=== PATIENT | male | born 1965 | race Hispanic/Latino ===

== ENCOUNTER 2022-05-17 11:09 | Inpatient (IN) | payer MEDICARE ==
[2022-05-17] MEDS ORDERED: ACETAMINOPHEN 325 MG TAB PO PRN (14:26)
[2022-05-17] MEDS ORDERED: METOCLOPRAMIDE 10 MG/2 ML INJ IV PRN (14:26)
--- NOTE | 2022-05-17 15:17 | Post Operative Note ---
Date of procedure: 05/17/22 Pre-op diagnosis: Respiratory failure Post-op diagnosis: same Findings: CONSENT: The procedure was performed emergently and the permission was implied because of the emergent nature. PROCEDURE SUMMARY: A time out was performed. My hands were washed immediately prior to the procedure. I wore a surgical cap, mask with protective eyewear, full gown and sterile gloves throughout the procedure. The patient was placed in Trendelenburg position. RIGHT chest region was prepped using chlorhexidine scrub and draped in sterile fashion using a full drape and sterile probe cover and sterile gel employed. The medial and lateral heads of the sternocleidomastoid muscle were identified as was the carotid pulse. The rt Internal Jugular vein was identified using the ultrasound. Anesthesia was achieved over the vein using 1% lidocaine. Using real-time out of plane guidance, the introducer needle was inserted into the Internal Jugular vein under direct ultrasound visualization. Venous blood was withdrawn. The syringe was removed and a guidewire was advanced into the introducer needle. The guidewire was visualized in the Internal Jugular Vein by ultrasound. A small incision was made at the skin surface with a scalpel and the introducer needle was exchanged for a dilator over the guidewire. After appropriate dilation was obtained, the dilator was exchanged over the wire for a 7F central venous catheter. The wire was removed and the catheter was sutured in place at 22 cm. A sterile sorbaview shield was placed over the catheter at the insertion site. The patient tolerated the procedure without any hemodynamic compromise. At time of procedure completion, all ports aspirated and flushed properly. Post-procedure chest x-ray is pending at this time. Estimated blood loss is <5cc. Procedure: Central line placement Surgeon: RAMONA ARROYO Estimated blood loss: minimal Pathology: none Condition: stable Disposition: ICU
[2022-05-17 15:53] LABS: ABG Base Excess -0.3 mmol/L (-2.0-3.0); ABG HCO3 24.1 mmol/L (20.0-26.0); ABG Methemoglobin 0.4 % (0.0-1.5); ABG Oxygen Saturation 99.2 % (95.0-99.0); ABG PCO2 38.4 mm Hg; ABG PH 7.416 pH Units (7.350-7.450); ABG PO2 191.6 mm Hg (80.0-90.0)
[2022-05-17 15:55] LABS: Albumin 2.9 g/dL (3.9-5); Blood Urea Nitrogen 42 mg/dL (9-20); Calcium 8.9 mg/dL (8.4-10.2); Hemolysis Index 4
--- NOTE | 2022-05-17 15:58 | XRay Report ---
CHEST 1 VIEW 05/17/2022 3:28 PM INDICATION / CLINICAL INFORMATION: central line placement. COMPARISON: Earlier the same day. FINDINGS: SUPPORT DEVICES: Endotracheal tube and right IJ central venous catheter in satisfactory position. HEART / MEDIASTINUM: Stable. LUNGS / PLEURA: Layering left-sided effusion with associated opacity and mild right basilar atelectas is remain. No pneumothorax. ADDITIONAL FINDINGS: No significant additional findings. IMPRESSION: 1. Lines and tubes in satisfactory position. 2. No significant change in the appearance of the chest. Signer Name: Reese Constantino MD Signed: 05/17/2022 3:54 PM Workstation Name: [id number]
[2022-05-17 16:05] LABS: Basophils % (Auto) 1.2 % (0.0-1.8); Eosinophils # (Auto) 0.1 K/mm3 (0.0-0.4); Eosinophils % (Auto) 2.3 % (0.0-4.3); Hematocrit 24.9 % (35.5-45.6); Hemoglobin 8.4 gm/dl (11.8-15.2); Lymphocytes # (Auto) 0.6 K/mm3 (1.2-5.4); Lymphocytes % (Auto) 15.3 % (13.4-35.0); Mean Corpuscular HGB Conc 34 % (32-34); Mean Corpuscular Volume 87 fl (84-94); Monocytes # (Auto) 0.6 K/mm3 (0.0-0.8); Monocytes % (Auto) 14.7 % (0.0-7.3); Platelet Count 150 K/mm3 (140-440); Red Blood Count 2.86 M/mm3 (3.65-5.03)
[2022-05-17 16:10] LABS: Alanine Aminotransferase < 5 units/L (7-56); BUN/Creatinine Ratio 6
[2022-05-17 16:10] LABS: Red Cell Distribution Width 20.9 % (13.2-15.2)
--- NOTE | 2022-05-17 16:39 | Consultation ---
History of Present Illness Consult date: 05/17/22 Reason for consult: dyspnea, COPD, hypoxemia History of present illness: This 56 year old Male transfered from [facility]. Patient developed severe respiratory distress at [facility]. Patient intubated and placed on mechanical ventilation. Patient transfered to [facility] ICU for further management and placement of central venous acess. Patient was on mechanical ventilation in the past. Patient was weaned from the ventilator and decanulated him. Patient agitated and developed severe respiratory distress, patient intubated and placed on assist control and volume control mechanical ventilation. Patient has history of HTN, Cardiomyopathy, ESRD on dialysis, COPD, History of Cocaine abuse Originally admitted to [facility] on 03/23/22 with altered mental status and CT of head obtained showed large Subdural hematoma with left shift.and also had hemoperitoneum.Patient undergone decompressive craniotomy.Patient also undergone paracentesis. Patient intubated and placed on mechanical ventilation subsequently has tracheostomy and PEG placement. Transfered to [facility] at that point. Patient weaned from the ventilator, subsequently decanulated. Patient tolerated decanulation well. Patient is on room air yesterday with 100% O2 saturation. Patient very anxious, May have seizure like activity, patients respiratory status detriorated, patient reintubated and placed on assist control mechanical ventilation. According to the chart, patient has history of smoking and Cocaine use. and has children. No known drug allergies. Patient sedated, not responding to verbal stimuli. Patient presently on assist control, volume control, rate 15, Tidal volume 450, FIO2 40%, PEEP 6 and O2 saturation running 100%. Recommend to decrease FIO2 to 30%. ABG on mechanical ventilation, AC/VC rate 15, Tidal volume 450, PEEP 6, FIO2 40% ABG pH 7.416 pH Units (7.350-7.450) 05/17/22 15:10 ABG pCO2 38.4 mm Hg 05/17/22 15:10 ABG pO2 191.6 mm Hg (80.0-90.0) H 05/17/22 15:10 ABG O2 Saturation 99.2 % (95.0-99.0) H 05/17/22 15:10 Recommend to decrease FIO2 to 30%. Patient afebrile. No leukocytosis. Blood pressure 101/68 , pulse 96 , Respirations 16. Chest xray done 05/17/22 reported Layering left-sided effusion with associated opacity and mild right basilar atelectasis remain. No pneumothorax. Lines and tubes in satisfactory position. Patient on sedatives dexametamidine, Fantanyl and versed. S/C Heparin and famotidine. Recommend Xopenex / atrovent aerosol treatments q 8 hours. Recommend nutritional evaluation. Past History Past Medical History: atrial fib, COPD, dialysis, ESRD, hypertension, renal failure, other (Subdural hematoma, S/P evacuation. Cardiomyopathy,) Past Surgical History: Other (Evacuation of subdural hematoma. History of tracheostomy and PEG placement.) Social history: smoking, other (History of Cocaine abuse.) Medications and Allergies Allergies Allergy/AdvReac Type Severity Reaction Status Date / Time No Known Allergies Allergy Unverified 05/17/22 15:36 Active Meds: Active Medications Acetaminophen (Acetaminophen 325 Mg Tab) 650 mg PO Q4H PRN PRN Reason: Pain MILD(1-3)/Fever >100.5/DYER Famotidine (Famotidine 20 Mg/2 Ml Inj) 20 mg IV BID [facility] Heparin Sodium (Porcine) (Heparin 5,000 Unit/1 Ml Vial) 5,000 unit SUB-Q Q12HR [facility] Dexmedetomidine HCl 400 mcg/ (Sodium Chloride) 104 mls @ 3.968 mls/hr IV TITRATE DAQUAN; Protocol Last Admin: 05/17/22 16:00 Dose: 0.2 mcg/kg/hr, 3.968 mls/hr Metoclopramide HCl (Metoclopramide 10 Mg/2 Ml Inj) 10 mg IV Q6H PRN PRN Reason: Nausea And Vomiting Morphine Sulfate (Morphine 2 Mg/1 Ml Inj) 2 mg IV Q4H PRN PRN Reason: Pain, Moderate (4-6) Ondansetron HCl (Ondansetron 4 Mg/2 Ml Inj) 4 mg IV Q3H PRN PRN Reason: Nausea And Vomiting Sodium Chloride (Sodium Chloride 0.9% 10 Ml Flush Syringe) 10 ml IV BID DAQUAN Sodium Chloride (Sodium Chloride 0.9% 10 Ml Flush Syringe) 10 ml IV PRN PRN PRN Reason: LINE FLUSH Review of Systems ROS unobtainable: due to endotracheal tube Physical Examination Vital signs: Vital Signs Pulse Pulse Ox 159 H 90 05/17/22 14:16 05/17/22 14:16 General appearance: no acute distress, asleep, other (Sedated, on mechanical ventilation.) Eyes: non-icteric ENT: oropharynx moist Neck: supple, no JVD Ascultation: Bilateral: rales Cardiovascular: irregular rhythm Gastrointestinal: hypoactive bowel sounds, other (slightly distended.) Integumentary: normal Extremities: no cyanosis, no edema Musculoskeletal: no deformities Gait: other (Can not evaluate at this time.) unable to assess, other (Patient sedated , intubated and on mechanical ventilation.) other (Can not assess. Patient sedated and on mechanical ventilation.) Results - Laboratory Findings CBC and BMP: 05/18/22 04:20 05/18/22 04:13 ABG ABG pH 7.416 pH Units (7.350-7.450) 05/17/22 15:10 ABG pCO2 38.4 mm Hg 05/17/22 15:10 ABG pO2 191.6 mm Hg (80.0-90.0) H 05/17/22 15:10 ABG O2 Saturation 99.2 % (95.0-99.0) H 05/17/22 15:10 Abnormal lab findings: Abnormal Labs 05/17/22 05/17/22 05/17/22 14:26 14:28 15:10 WBC 4.0 L RBC 2.86 L Hgb 8.4 L Hct 24.9 L RDW 20.9 H [place] % (Auto) 14.7 H Lymph # (Auto) 0.6 L ABG pO2 191.6 H ABG O2 Saturation 99.2 H ABG Hemoglobin 9.0 L Sodium 126 L Potassium 6.0 H Chloride 91.0 L BUN 42 H Creatinine 6.9 H ALT < 5 L Total Protein 6.1 L Albumin 2.9 L - Diagnostic Findings Chest x-ray: report reviewed, image reviewed Additional studies: [facility] 1 VIEW 05/17/2022 3:28 PM INDICATION / CLINICAL INFORMATION: central line placement. COMPARISON: Earlier the same day. FINDINGS: SUPPORT DEVICES: Endotracheal tube and right IJ central venous catheter in satisfactory position. HEART / MEDIASTINUM: Stable. LUNGS / PLEURA: Layering left-sided effusion with associated opacity and mild right basilar atelectasis remain. No pneumothorax. ADDITIONAL FINDINGS: No significant additional findings. IMPRESSION: 1. Lines and tubes in satisfactory position. 2. No significant change in the appearance of the chest. Assessment and Plan This 56 year old Male transfered from [facility]. Patient developed severe respiratory distress at [facility]. Patient intubated and placed on mechanical ventilation. Patient transfered to [facility] ICU for further management and placement of central venous acess. Patient was on mechanical ventilation in the past. Patient was weaned from the ventilator and decanulated him. Patient agitated and developed severe respiratory distress, patient intubated and placed on assist control and volume control mechanical ventilation. Patient has history of HTN, Cardiomyopathy, ESRD on dialysis, COPD, History of Cocaine abuse Originally admitted to [facility] on 03/23/22 with altered mental status and CT of head obtained showed large Subdural hemat marlene with left shift.and also had hemoperitoneum.Patient undergone decompressive craniotomy.Patient also undergone paracentesis. Patient intubated and placed on mechanical ventilation subsequently has tracheostomy and PEG placement. Transfered to [facility] at that point. Patient weaned from the ventilator, subsequently decanulated. Patient tolerated decanulation well. Patient is on room air yesterday with 100% O2 saturation. Patient very anxious, May have seizure like activity, patients respiratory status detriorated, patient reintubated and placed on assist control mechanical ventilation. According to the chart, patient has history of smoking and Cocaine use. and has children. No known drug allergies. Patient sedated, not responding to verbal stimuli. Patient presently on assist control, volume control, rate 15, Tidal volume 450, FIO2 40%, PEEP 6 and O2 saturation running 100%. Recommend to decrease FIO2 to 30%. ABG on mechanical ventilation, AC/VC rate 15, Tidal volume 450, PEEP 6, FIO2 40% ABG pH 7.416 pH Units (7.350-7.450) 05/17/22 15:10 ABG pCO2 38.4 mm Hg 05/17/22 15:10 ABG pO2 191.6 mm Hg (80.0-90.0) H 05/17/22 15:10 ABG O2 Saturation 99.2 % (95.0-99.0) H 05/17/22 15:10 Recommend to decrease FIO2 to 30%. Patient afebrile. No leukocytosis. Blood pressure 101/68 , pulse 96 , Respirat ions 16. Chest xray done 05/17/22 reported Layering left-sided effusion with associated opacity and mild right basilar atelectasis remain. No pneumothorax. Lines and tubes in satisfactory position. Patient on sedatives dexametamidine, Fantanyl and versed. S/C Heparin and famotidine. Recommend Xopenex / atrovent aerosol treatments q 8 hours. Recommend nutritional evaluation. Patients at bed side, explained to her patients critical condition. I spent critical care time of 60 minutes, reviewing the chart, examine the patient,review labs, chest xray, talking to the nursing staff, respiratory therapy and work up plan of treatment in this critically ill patient. - Patient Problems (1) Acute respiratory failure with hypoxia Current Visit: Yes Status: Acute Plan to address problem: On mechanical ventilation assist control, volume control rate 15, Tidal volume 450, FIO2 30%, PEEP 6. Recommend xopenex and atrovent aerosol treatments q 8 hours. Continue S/C Heparin Continue Famotidine. (2) Subdural hematoma Current Visit: Yes Status: Acute Plan to address problem: Patient undergone decompressive Craniotomy at [facility]. (3) Toxic metabolic encephalopathy Current Visit: Yes Status: Acute Plan to address problem: Management as per primary care and neurology. (4) ESRD on dialysis Current Visit: Yes Status: Chronic Plan to address problem: Management as per nephrology. (5) HTN (hypertension) Current Visit: Yes Status: Chronic Qualifiers: Hypertension type: primary hypertension Qualified Code(s): I10 - Essential (primary) hypertension Plan to address problem: Management as per primary care. (6) COPD (chronic obstructive pulmonary disease) Current Visit: Yes Status: Chronic Qualifiers: COPD type: COPD with acute exacerbation Qualified Code(s): J44.1 - Chronic obstructive pulmonary disease with (acute) exacerbation Plan to address problem: On mechanical ventilation assist control, volume control rate 15, Tidal volume 450, FIO2 30%, PEEP 6. Recommend xopenex and atrovent aerosol treatments q 8 hours. Continue S/C Heparin Continue Famotidine (7) Cardiomyopathy Current Visit: Yes Status: Acute Plan to address problem: Management as per cardiology. (8) Oropharyngeal dysphagia Current Visit: Yes Status: Acute Plan to address problem: Aspiration precautions. (9) Seizures Current Visit: Yes Status: Chronic Plan to address problem: Question of Seizures. Recommend to consult neurology.
[2022-05-17] MEDS ORDERED: fentaNYL 100 MCG/2 ML INJ IV PRN (19:06)
[2022-05-17] MEDS: MIDAZOLAM 2 MG/2 ML INJ IV PRN ×2 (19:20→22:50)
[2022-05-17] MEDS: fentaNYL DRIP Premix 2,000 MCG/100 ML BAG IV SCH (19:30)
[2022-05-17] MEDS: HEPARIN 5,000 UNIT/1 ML VIAL SUB-Q SCH (21:15)
[2022-05-17] MEDS ORDERED: FAMOTIDINE 20 MG/2 ML INJ IV SCH (22:00)
[2022-05-18] MEDS: fentaNYL DRIP Premix 2,000 MCG/100 ML BAG IV SCH ×3 (03:12→23:04)
[2022-05-18 05:01] LABS: Basophils % (Auto) 1.1 % (0.0-1.8); Eosinophils # (Auto) 0.1 K/mm3 (0.0-0.4); Eosinophils % (Auto) 3.1 % (0.0-4.3); Hematocrit 25.3 % (35.5-45.6); Hemoglobin 8.1 gm/dl (11.8-15.2); Lymphocytes # (Auto) 0.5 K/mm3 (1.2-5.4); Lymphocytes % (Auto) 16.2 % (13.4-35.0); Mean Corpuscular HGB Conc 32 % (32-34); Mean Corpuscular Volume 88 fl (84-94); Monocytes # (Auto) 0.5 K/mm3 (0.0-0.8); Monocytes % (Auto) 15.1 % (0.0-7.3); Platelet Count 127 K/mm3 (140-440); Red Blood Count 2.87 M/mm3 (3.65-5.03)
[2022-05-18 05:02] LABS: Red Cell Distribution Width 20.7 % (13.2-15.2)
[2022-05-18 05:18] LABS: Calcium 8.8 mg/dL (8.4-10.2)
[2022-05-18] MEDS ORDERED: SODIUM POLYSTYRENE 15 GM/60 ML ORAL LIQD PR ONE (05:46)
--- NOTE | 2022-05-18 05:47 | History and Physical Report ---
History of Present Illness Date of examination: 05/17/22 Date of admission: 05/17/22 14:42 Chief complaint: Acute respiratory failure with hypoxia History of present illness: 56 year-old male patient with history of HTN, Cardiomyopathy, ESRD on dialysis, COPD, History of Cocaine abuse Originally admitted to [facility] on 03/23/22 for s/p fall and large Subdural hematoma with left shift and also hemoperitoneum.Patient undergone decompressive craniotomy.Patient also undergone paracentesis. Patient intubated and placed on mechanical ventilation subsequently has tracheostomy and PEG placement. Transfered to [facility] at that point. Patient weaned from the ventilator, subsequently decanulated. Patient tolerated decanulation well. Patient is on room air yesterday with 100% O2 saturation. Patient very anxious, May have seizure like activity, patients respiratory status detriorated, patient reintubated and placed on assist control mechanical ventilation. According to the chart, patient has history of smoking and Cocaine use. and has children. No known drug allergies. Transfered from [facility]. Patient developed severe respiratory distress at [facility]. Patient intubated and placed on mechanical ventilation. Patient transfered to [facility] ICU for further management and placement of central venous acess. Patient was on mechanical ventilation in the past. Patient was weaned from the ventilator and decanulated him. Patient agitated and developed severe respiratory distress, patient intubated and placed on assist control and volume control mechanical ventilation. Patient sedated, not responding to verbal stimuli. Patient presently on assist control, volume control, rate 15, Tidal volume 450, FIO2 40%, PEEP 6 and O2 saturation running 100%. Recommend to decrease FIO2 to 30%. ABG on mechanical ventilation, AC/VC rate 15, Tidal volume 450, PEEP 6, FIO2 40% ABG pH 7.416 pH Units (7.350-7.450) 05/17/22 15:10 ABG pCO2 38.4 mm Hg 05/17/22 15:10 ABG pO2 191.6 mm Hg (80.0-90.0) H 05/17/22 15:10 ABG O2 Saturation 99.2 % (95.0-99.0) H 05/17/22 15:10 Patient afebrile. No leukocytosis. Blood pressure 101/68 , pulse 96 , Respirations 16. Chest xray done 8/28/22 reported Layering left-sided effusion with associated opacity and mild right basilar atelectasis remain. No pneumothorax. Lines and tubes in satisfactory position. Patient on sedatives dexametamidine, Fantanyl and versed. S/C Heparin and famotidine. Recommend Xopenex / atrovent aerosol treatments q 8 hours. Past History Past Medical History: atrial fib, COPD, dialysis, ESRD, hypertension, renal failure, other (Subdural hematoma, S/P evacuation. Cardiomyopathy,) Past Surgical History: Other (Evacuation of subdural hematoma. History of tracheostomy and PEG placement.) Social history: smoking, other (History of Cocaine abuse.) Review of Systems ROS unobtainable: due to endotracheal tube Past History Past Medical History: atrial fib, COPD, dialysis, ESRD, hypertension, renal failure, other (Subdural hematoma, S/P evacuation. Cardiomyopathy,) Past Surgical History: Other (Evacuation of subdural hematoma. History of tracheostomy and PEG placement.) Social history: smoking, other (History of Cocaine abuse.) Medications and Allergies Allergies Allergy/AdvReac Type Severity Reaction Status Date / Time No Known Allergies Allergy Unverified 05/17/22 15:36 Active Meds: Active Medications Acetaminophen (Acetaminophen 325 Mg Tab) 650 mg PO Q4H PRN PRN Reason: Pain MILD(1-3)/Fever >100.5/DYER Famotidine (Famotidine 20 Mg/2 Ml Inj) 20 mg IV BID DAQUAN Last Admin: 05/17/22 21:15 Dose: 20 mg Fentanyl (Fentanyl 100 Mcg/2 Ml Inj) 50 mcg IV Q10MIN PRN PRN Reason: ANALGESIA Heparin Sodium (Porcine) (Heparin 5,000 Unit/1 Ml Vial) 5,000 unit SUB-Q Q12HR DAQUAN Last Admin: 05/17/22 21:15 Dose: 5,000 unit Dexmedetomidine HCl 400 mcg/ (Sodium Chloride) 104 mls @ 3.968 mls/hr IV TITRATE DAQUAN; Protocol Last Admin: 05/18/22 04:52 Dose: 0.7 mcg/kg/hr, 13.887 mls/hr Fentanyl Citrate (Fentanyl Drip Premix) 2,000 mcg in 100 mls @ 3.815 mls/hr IV TITR DAQUAN; Protocol Last Titration: 05/18/22 03:50 Dose: 1 mcg/kg/hr, 3.815 mls/hr Metoclopramide HCl (Metoclopramide 10 Mg/2 Ml Inj) 10 mg IV Q6H PRN PRN Reason: Nausea And Vomiting Midazolam HCl (Midazolam 2 Mg/2 Ml Inj) 2 mg IV Q3H PRN PRN Reason: Agitation Last Admin: 05/17/22 22:50 Dose: 2 mg Morphine Sulfate (Morphine 2 Mg/1 Ml Inj) 2 mg IV Q4H PRN PRN Reason: Pain, Moderate (4-6) Ondansetron HCl (Ondansetron 4 Mg/2 Ml Inj) 4 mg IV Q3H PRN PRN Reason: Nausea And Vomiting Sodium Chloride (Sodium Chloride 0.9% 10 Ml Flush Syringe) 10 ml IV BID DAQUAN Last Admin: 05/17/22 21:15 Dose: 10 ml Sodium Chloride (Sodium Chloride 0.9% 10 Ml Flush Syringe) 10 ml IV PRN PRN PRN Reason: LINE FLUSH Exam - Physical Exam Narrative exam: Patient is intubated - Constitutional Vitals: Temp Pulse Resp BP Pulse Ox 98.5 F 89 11 L 106/61 100 05/18/22 04:00 05/18/22 05:00 05/18/22 05:00 05/18/22 05:00 05/18/22 05:00 General appearance: Present: mild distress, well-nourished, other (Agitated) - EENT Eyes: Present: PERRL ENT: hearing intact, clear oral mucosa - Neck Neck: Present: supple, normal ROM - Respiratory Respiratory effort: normal Respiratory: bilateral: CTA - Cardiovascular Heart rate: 78 Rhythm: irregularly irregular Heart Sounds: Present: S1 & S2. Absent: rub, click - Extremities Extremities: pulses symmetrical, No edema Peripheral Pulses: within normal limits - Abdominal General gastrointestinal: Present: soft, non-tender, non-distended, normal bowel sounds Male genitourinary: Present: normal - Integumentary Integumentary: Present: clear, warm, dry - Musculoskeletal Musculoskeletal: gait normal, strength equal bilaterally - Psychiatric Psychiatric: appropriate mood/affect, intact judgment & insight - Neurologic Neurologic: CNII-XII intact, moves all extremities Results - Labs CBC & Chem 7: 05/18/22 04:20 05/18/22 04:13 Labs: Laboratory Last Values WBC 3.0 K/mm3 (4.5-11.0) L 05/18/22 04:20 RBC 2.87 M/mm3 (3.65-5.03) L 05/18/22 04:20 Hgb 8.1 gm/dl (11.8-15.2) L 05/18/22 04:20 Hct 25.3 % (35.5-45.6) L 05/18/22 04:20 MCV 88 fl (84-94) 05/18/22 04:20 MCH 28 pg (28-32) 05/18/22 04:20 MCHC 32 % (32-34) 05/18/22 04:20 RDW 20.7 % (13.2-15.2) H 05/18/22 04:20 Plt Count 127 K/mm3 (140-440) L 05/18/22 04:20 Lymph % (Auto) 16.2 % (13.4-35.0) 05/18/22 04:20 [place] % (Auto) 15.1 % (0.0-7.3) H 05/18/22 04:20 Eos % (Auto) 3.1 % (0.0-4.3) 05/18/22 04:20 Baso % (Auto) 1.1 % (0.0-1.8) 05/18/22 04:20 Lymph # (Auto) 0.5 K/mm3 (1.2-5.4) L 05/18/22 04:20 [place] # (Auto) 0.5 K/mm3 (0.0-0.8) 05/18/22 04:20 Eos # (Auto) 0.1 K/mm3 (0.0-0.4) 05/18/22 04:20 Baso # (Auto) 0.0 K/mm3 (0.0-0.1) 05/18/22 04:20 Seg Neutrophils % 64.5 % (40.0-70.0) 05/18/22 04:20 Seg Neutrophils # 2.0 K/mm3 (1.8-7.7) 05/18/22 04:20 ABG pH 7.416 pH Units (7.350-7.450) 05/17/22 15:10 ABG pCO2 38.4 mm Hg 05/17/22 15:10 ABG pO2 191.6 mm Hg (80.0-90.0) H 05/17/22 15:10 ABG HCO3 24.1 mmol/L (20.0-26.0) 05/17/22 15:10 ABG O2 Saturation 99.2 % (95.0-99.0) H 05/17/22 15:10 ABG O2 Content 12.7 (0.0-44) 05/17/22 15:10 ABG Base Excess -0.3 mmol/L (-2.0-3.0) 05/17/22 15:10 ABG Hemoglobin 9.0 gm/dl (14.0-18.0) L 05/17/22 15:10 ABG Carboxyhemoglobin 2.2 % (0.0-5.0) 05/17/22 15:10 ABG Methemoglobin 0.4 % (0.0-1.5) 05/17/22 15:10 Oxyhemoglobin 96.7 % (95.0-99.0) 05/17/22 15:10 FiO2 50 % 05/17/22 15:10 Sodium 126 mmol/L (137-145) L 05/17/22 14:28 Potassium 6.0 mmol/L (3.6-5.0) H 05/17/22 14:28 Chloride 91.0 mmol/L (98-107) L 05/17/22 14:28 Carbon Dioxide 24 mmol/L (22-30) 05/17/22 14:28 Anion Gap 17 mmol/L 05/17/22 14:28 BUN 42 mg/dL (9-20) H 05/17/22 14:28 Creatinine 6.9 mg/dL (0.8-1.3) H 05/17/22 14:28 Estimated GFR 8 ml/min 05/17/22 14:28 BUN/Creatinine Ratio 6 % 05/17/22 14:28 Glucose 96 mg/dL (75-100) 05/17/22 14:28 Calcium 8.9 mg/dL (8.4-10.2) 05/17/22 14:28 Total Bilirubin 0.40 mg/dL (0.1-1.2) 05/17/22 14:28 AST 7 units/L (5-40) 05/17/22 14:28 ALT < 5 units/L (7-56) L 05/17/22 14:28 Alkaline Phosphatase 78 units/L (35-129) 05/17/22 14:28 Total Protein 6.1 g/dL (6.3-8.2) L 05/17/22 14:28 Albumin 2.9 g/dL (3.9-5) L 05/17/22 14:28 Albumin/Globulin Ratio 0.9 % 05/17/22 14:28 Short CBC 05/17/22 05/18/22 Range/Units 14:26 04:20 WBC 4.0 L 3.0 L (4.5-11.0) K/mm3 Hgb 8.4 L 8.1 L (11.8-15.2) gm/dl Hct 24.9 L 25.3 L (35.5-45.6) % Plt Count 150 127 L (140-440) K/mm3 BMP 05/17/22 05/18/22 14:28 04:13 Sodium 126 L 128 L Potassium 6.0 H 6.8 H* Chloride 91.0 L 93.7 L Carbon Dioxide 24 24 BUN 42 H 48 H Creatinine 6.9 H 6.8 H Glucose 96 77 Calcium 8.9 8.8 Liver Function 05/17/22 Range/Units 14:28 Total Bilirubin 0.40 (0.1-1.2) mg/dL AST 7 (5-40) units/L ALT < 5 L (7-56) units/L Alkaline Phosphatase 78 (35-129) units/L Albumin 2.9 L (3.9-5) g/dL Assessment and Plan Assessment and plan: Critical care statement The high probability OF a clinically significant sudden or life-threatening deterioration of the cardiorespiratory system and endocrine system required my full and direct attention, intervention and postoperative management. The aggregate critical care time was 62 minutes. The time is in addition to time spent performing reported procedures but includes the followin: Data review and interpretation 2: Patient assessment and monitoring of vital signs 3: Documentation 4:: Medication orders and management Advance Directives: Yes (Full code) VTE prophylaxis?: Chemical Plan of care discussed with patient/family: Yes - Patient Problems (1) Acute respiratory failure with hypoxia Current Visit: Yes Status: Acute Plan to address problem: Patient reintubated Critical care consult Vent management Sedation (2) COPD (chronic obstructive pulmonary disease) Current Visit: Yes Status: Chronic Qualifiers: COPD type: COPD with acute exacerbation Qualified Code(s): J44.1 - Chronic obstructive pulmonary disease with (acute) exacerbation Plan to address problem: Continue DuoNebs and low-dose Solu-Medrol and antibiotics (3) ESRD on dialysis Current Visit: Yes Status: Chronic Plan to address problem: Nephrology consulted. Continue hemodialysis (4) HTN (hypertension) Current Visit: Yes Status: Chronic Qualifiers: Hypertension type: primary hypertension Qualified Code(s): I10 - Essential (primary) hypertension Plan to address problem: Continue antihypertensives and adjust medications as necessary (5) Seizures Current Visit: Yes Status: Chronic Plan to address problem: Continue antiepileptic drugs (6) Subdural hematoma Current Visit: Yes Status: Acute Plan to address problem: Nearly resolved (7) Atrial fibrillation Current Visit: Yes Status: Chronic Qualifiers: Atrial fibrillation type: persistent (not longstanding) Qualified Code(s): I48.19 - Other persistent atrial fibrillation; I48.1 - Persistent atrial fibrillation Plan to address problem: Continue anticoagulation (8) DVT prophylaxis Current Visit: Yes Status: Acute (9) DVT prophylaxis Current Visit: Yes Status: Acute Plan to address problem: On anticoagulation GI prophylaxis (10) Advance care planning Current Visit: Yes Status: Acute Plan to address problem: Disease education conducted, care plan discussed with and diagnosis discussed and prognosis discussed. Patient is full code. acknowledges understanding with care plan. +30 minutes.
[2022-05-18] MEDS ORDERED: IPRATROPIUM/ALBUTEROL SULFATE 3 ML AMPUL.NEB IH PRN (05:55)
[2022-05-18] MEDS ORDERED: AZITHROMYCIN/NS 500 MG/250 ML 500 MG/250 ML BAG IV SCH (06:00)
[2022-05-18] MEDS ORDERED: cefTRIAXone/NS 1 GM/50 ML 1 GM/50 ML BAG IV SCH (06:00)
[2022-05-18] MEDS ORDERED: ALBUTEROL 2.5 MG/3 ML NEBU IH PRN (06:02)
[2022-05-18 06:15] LABS: ABG Base Excess -0.3 mmol/L (-2.0-3.0); ABG HCO3 25.2 mmol/L (20.0-26.0); ABG Methemoglobin 0.5 % (0.0-1.5); ABG Oxygen Saturation 98.9 % (95.0-99.0); ABG PCO2 44.9 mm Hg; ABG PH 7.367 pH Units (7.350-7.450); ABG PO2 158.7 mm Hg (80.0-90.0)
[2022-05-18] MEDS: methylPREDNISolone Sod Succinate 125 MG/2 ML INJ IV SCH ×3 (06:28→21:13)
[2022-05-18] MEDS ORDERED: SODIUM CHLORIDE 0.9% 500 ML 500 ML ONE (07:31)
[2022-05-18] MEDS: IPRATROPIUM/ALBUTEROL SULFATE 3 ML AMPUL.NEB IH SCH ×2 (08:39→12:14)
[2022-05-18] MEDS ORDERED: ALBUMIN HUMAN 25% (25 GM/100 ML) INJ IV PRN (09:10)
[2022-05-18] MEDS ORDERED: SODIUM CHLORIDE 0.9% 100 ML IV PRN (09:10)
[2022-05-18] MEDS: METOCLOPRAMIDE 10 MG/2 ML INJ IV PRN (09:22)
[2022-05-18] MEDS: HEPARIN 5,000 UNIT/1 ML VIAL SUB-Q SCH ×2 (09:23→21:14)
[2022-05-18] MEDS: AMIODARONE 200 MG TAB PO SCH ×3 (09:23→21:14)
[2022-05-18] MEDS: FAMOTIDINE 20 MG/2 ML INJ IV SCH (09:23)
[2022-05-18] MEDS ORDERED: FAMOTIDINE 20 MG/2 ML INJ IV SCH (10:00)
--- NOTE | 2022-05-18 10:14 | Consultation ---
History of Present Illness - Reason for Consult end stage renal disease - History of Present Illness This is a 56-year-old male transferred from the LTAC facility secondary to worsening respiratory distress. He has an underlying history of end-stage renal disease along with history of hypertension and substance abuse. Patient had suffered a recent fall and suffered a subdural hematoma that re quired craniotomy and decompression at [facility]. At that time he was intubated and eventually trached and pegged. He ended up being decannulated but was reintubated at his LTAC facility secondary to aforementioned worsening respiratory distress and altered mental status. Nephro logy consult of this time for dialysis needs. He has a right upper extremity AV fistula that has been utilized for dialysis purposes. Currently remains intubated in the intensive care unit and is sedated. Past History Past Medical History: atrial fib, COPD, dialysis, ESRD, hypertension, renal failure, other (Subdural hematoma, S/P evacuation. Cardiomyopathy,) Past Surgical History: Other (Evacuation of subdural hematoma. History of tracheostomy and PEG placement.) Social history: smoking, other (History of Cocaine abuse.) Medications and Allergies Allergies Allergy/AdvReac Type Severity Reaction Status Date / Time No Known Allergies Allergy Unverified 05/17/22 15:36 Active Meds: Active Medications Acetaminophen (Acetaminophen 325 Mg Tab) 650 mg PO Q4H PRN PRN Reason: Pain MILD(1-3)/Fever >100.5/DYER Albumin Human (Albumin Human 25% (25 Gm/100 Ml) Inj) 25 gm IV TOM PRN PRN Reason: Hypotension Albuterol (Albuterol 2.5 Mg/3 Ml Nebu) 2.5 mg IH Q3HRT PRN PRN Reason: Wheezing Albuterol/Ipratropium (Ipratropium/Albuterol Sulfate 3 Ml Ampul.Neb) 1 ampul IH QIDRT [facility] Last Admin: 05/18/22 08:39 Dose: 1 ampul Amiodarone HCl (Amiodarone 200 Mg Tab) 200 mg PO BID [facility] Epoetin Jacinto-epbx (Epoetin Jacinto-Epbx 10,000 Unit/1 Ml Vial) 10,000 unit IV TOM PRN PRN Reason: hemodialysis Famotidine (Famotidine 20 Mg/2 Ml Inj) 20 mg IV DAILY [facility] Last Admin: 05/18/22 09:23 Dose: 20 mg Fentanyl (Fentanyl 100 Mcg/2 Ml Inj) 50 mcg IV Q10MIN PRN PRN Reason: ANALGESIA Heparin Sodium (Porcine) (Heparin 5,000 Unit/1 Ml Vial) 5,000 unit SUB-Q Q12HR DAQUAN Last Admin: 05/18/22 09:23 Dose: 5,000 unit Dexmedetomidine HCl 400 mcg/ (Sodium Chloride) 104 mls @ 3.968 mls/hr IV TITRATE DAQUAN; Protocol Last Titration: 05/18/22 09:24 Dose: 0.6 mcg/kg/hr, 11.903 mls/hr Fentanyl Citrate (Fentanyl Drip Premix) 2,000 mcg in 100 mls @ 3.815 mls/hr IV TITR DAQUAN; Protocol Last Titration: 05/18/22 09:24 Dose: 2 mcg/kg/hr, 7.63 mls/hr Azithromycin (Zithromax/Ns) 500 mg in 250 mls @ 250 mls/hr IV Q24H DAQUAN Last Admin: 05/18/22 06:22 Dose: 250 mls/hr Ceftriaxone Sodium (Rocephin/Ns 1 Gm/50 Ml) 1 gm in 50 mls @ 100 mls/hr IV Q24H DAQUAN; Protocol Last Admin: 05/18/22 07:42 Dose: 100 mls/hr Sodium Chloride (Nacl 0.9%) 100 mls @ 999 mls/hr IV TOM PRN PRN Reason: Hypotension Methylprednisolone Sodium Succinate (Methylprednisolone Sod Succinate 125 Mg/2 Ml Inj) 60 mg IV Q8HR [facility] Last Admin: 05/18/22 06:28 Dose: 60 mg Metoclopramide HCl (Metoclopramide 10 Mg/2 Ml Inj) 5 mg IV Q6H PRN PRN Reason: Nausea And Vomiting Last Admin: 05/18/22 09:22 Dose: 5 mg Midazolam HCl (Midazolam 2 Mg/2 Ml Inj) 2 mg IV Q3H PRN PRN Reason: Agitation Last Admin: 05/17/22 22:50 Dose: 2 mg Morphine Sulfate (Morphine 2 Mg/1 Ml Inj) 2 mg IV Q4H PRN PRN Reason: Pain, Moderate (4-6) Ondansetron HCl (Ondansetron 4 Mg/2 Ml Inj) 4 mg IV Q3H PRN PRN Reason: Nausea And Vomiting Sodium Chloride (Sodium Chloride 0.9% 10 Ml Flush Syringe) 10 ml IV BID DAQUAN Last Admin: 05/18/22 09:45 Dose: 10 ml Sodium Chloride (Sodium Chloride 0.9% 10 Ml Flush Syringe) 10 ml IV PRN PRN PRN Reason: LINE FLUSH Review of Systems ROS unobtainable: due to endotracheal tube Exam - Vital Signs Vital signs: Vital Signs Pulse Pulse Ox 159 H 90 05/17/22 14:16 05/17/22 14:16 - General Appearance General appearance: appears stated age, sedated on ventilator, intubated EENT: ATNC Neck: Present: neck supple Respiratory: Wheezes Heart: regular, tachycardia Gastrointestinal: Present: normal Integumentary: no rash Musculoskeletal: Present: deferred Results - Lab Results 05/18/22 04:20 05/18/22 04:13 Most recent lab results ABG pH 7.367 pH Units (7.350-7.450) 05/18/22 06:00 ABG pCO2 44.9 mm Hg 05/18/22 06:00 ABG pO2 158.7 mm Hg (80.0-90.0) H 05/18/22 06:00 ABG HCO3 25.2 mmol/L (20.0-26.0) 05/18/22 06:00 ABG O2 Saturation 98.9 % (95.0-99.0) 05/18/22 06:00 Calcium 8.8 mg/dL (8.4-10.2) 05/18/22 04:13 Assessment and Plan - Patient Problems (1) Hyperkalemia Current Visit: Yes Status: Acute Plan to address problem: Orders have been placed for hemodialysis treatment today. (2) Acute respiratory failure with hypoxia Current Visit: Yes Status: Acute Plan to address problem: Ventilator management per ICU/pulmonary team. (3) ESRD on dialysis Current Visit: Yes Status: Chronic Plan to address problem: Have started patient on Wednesday/Wednesday/Wednesday inpatient hemodialysis schedule. Discussed with dialysis staff. (4) HTN (hypertension) Current Visit: Yes Status: Chronic Qualifiers: Hypertension type: primary hypertension Qualified Code(s): I10 - Essential (primary) hypertension Plan to address problem: Blood pressures are slightly labile this morning which may be secondary to patient being on Precedex. Have asked staff to titrate Precedex down as appropriate to allow for blood pressures to hopefully increase/Stabilize so that we can appropriately do dialysis today. (5) Subdural hematoma Current Visit: Yes Status: Chronic Plan to address problem: Status post craniotomy and decompression.
[2022-05-18] MEDS ORDERED: VANCOMYCIN 1,500 MG in SODIUM CHLORIDE 0.9% 500 ML 500 ML IV ONE (10:24)
[2022-05-18] MEDS ORDERED: VANCOMYCIN PHARMACY TO DOSE IV SCH (11:00)
[2022-05-18] MEDS ORDERED: VANCOMYCIN 1,500 MG in SODIUM CHLORIDE 0.9% 500 ML 500 ML IV SCH (11:30)
--- NOTE | 2022-05-18 11:37 | Progress Note ---
Assessment and Plan Acute hypoxemic respiratory failure on mechanical ventilatory support Acute toxic metabolic encephalopathy Left subdural hematoma s/p evacuation End-stage renal disease on dialysis Hypertension COPD CMOP H/O Cocaine abuse Oropharyngeal dysphagia -VAP bundle addressed, aspiration precautions HOB >40 -CXR,ABG as indicated -Daily SAT,SBT as tolerated - continue bronchodilators with pulmonary hygiene per RT -aspiration precautions, HOB >40 - continue to wean per pulmonary driven protocols - continue HD/UF per nephrology prescription for toxin and volume clearance - prn analgesia per pain score - follow clinically re: fever curves / trend WBC - Avoid delirium (no benzodiazepines if they can be avoided) - Maintain sleep-wake cycle - enteral nutrition at goal rate as tolerated - accuchecks with glycemic control per SSI for target blood glucose goal of < 180 mg/dL; Avoid hypoglycemia - VTE prophylaxis with Heparin - stress ulcer prophylaxis with Pantoprazole - fall precautions - Supportive transfusions to keep Hb>7g/dL - continue to monitor neurologic function - continue chronic home medications as indicated - continue all supportive care The high probability of a clinically significant, sudden or life threatening deterioration of the respiratory, neurology, system(s) required my full and direct attention, intervention and personal management. The aggregate critical care time was [35] minutes. This time is in addition to time spent performing reported procedures but includes the following: [x] Data Review and interpretation [x] Patient assessment and monitoring of vital signs [x] Documentation [x] Medication orders and management Subjective Date of service: 05/18/22 Interval history: Patient is being seen today for Acute hypoxemic respiratory failure; AMS; Left SDH; ESRD on dialysis; COPD; H/O Cocaine abuse Seen and examined at bedside; 24hr events reviewed; nursing and respiratory care staff consulted; no adverse overnight events reported to me; resting peacefully in bed;orally intubated with some agitation, no fevers, no chills, no vomiting Objective Vital Signs - 12hr 05/17/22 05/17/22 05/18/22 23:45 23:51 00:00 Temperature 97.8 F Pulse Rate 85 100 H 85 Pulse Rate [ Anterior Bilateral Throughout] Pulse Rate [ 86 From Monitor] Respiratory 15 16 Rate Respiratory Rate [Anterior Bilateral Throughout] Blood Pressure 101/74 110/67 95/67 O2 Sat by Pulse 100 100 100 Oximetry 05/18/22 05/18/22 05/18/22 00:04 00:15 00:30 Temperature Pulse Rate 89 90 87 Pulse Rate [ Anterior Bilateral Throughout] Pulse Rate [ From Monitor] Respiratory 14 16 15 Rate Respiratory Rate [Anterior Bilateral Throughout] Blood Pressure 95/67 96/63 96/63 O2 Sat by Pulse 100 100 100 Oximetry 05/18/22 05/18/22 05/18/22 00:45 01:00 01:16 Temperature Pulse Rate 100 H 93 H 94 H Pulse Rate [ Anterior Bilateral Throughout] Pulse Rate [ From Monitor] Respiratory 16 15 16 Rate Respiratory Rate [Anterior Bilateral Throughout] Blood Pressure 187/120 150/110 107/47 O2 Sat by Pulse 100 100 100 Oximetry 05/18/22 05/18/22 05/18/22 01:30 01:46 02:00 Temperature Pulse Rate 92 H 91 H 91 H Pulse Rate [ Anterior Bilateral Throughout] Pulse Rate [ From Monitor] Respiratory 15 15 13 Rate Respiratory Rate [Anterior Bilateral Throughout] Blood Pressure 100/49 104/38 104/38 O2 Sat by Pulse 100 100 100 Oximetry 05/18/22 05/18/22 05/18/22 02:16 02:30 02:45 Temperature Pulse Rate 80 93 H 91 H Pulse Rate [ Anterior Bilateral Throughout] Pulse Rate [ From Monitor] Respiratory 15 15 13 Rate Respiratory Rate [Anterior Bilateral Throughout] Blood Pressure 103/83 100/36 107/39 O2 Sat by Pulse 100 100 100 Oximetry 05/18/22 05/18/22 05/18/22 03:00 03:03 03:15 Temperature Pulse Rate 77 100 H 85 Pulse Rate [ Anterior Bilateral Throughout] Pulse Rate [ From Monitor] Respiratory 15 15 Rate Respiratory Rate [Anterior Bilateral Throughout] Blood Pressure 109/37 109/37 100/68 O2 Sat by Pulse 100 100 100 Oximetry 05/18/22 05/18/22 05/18/22 03:30 04:00 04:16 Temperature 98.5 F Pulse Rate 92 H 85 83 Pulse Rate [ Anterior Bilateral Throughout] Pulse Rate [ 84 From Monitor] Respiratory 15 16 13 Rate Respiratory Rate [Anterior Bilateral Throughout] Blood Pressure 103/43 106/75 94/51 O2 Sat by Pulse 100 100 100 Oximetry 05/18/22 05/18/22 05/18/22 04:30 04:45 05:00 Temperature Pulse Rate 85 90 89 Pulse Rate [ Anterior Bilateral Throughout] Pulse Rate [ From Monitor] Respiratory 16 14 11 L Rate Respiratory Rate [Anterior Bilateral Throughout] Blood Pressure 94/51 106/61 106/61 O2 Sat by Pulse 100 100 100 Oximetry 05/18/22 05/18/22 05/18/22 05:16 05:30 05:46 Temperature Pulse Rate 82 82 78 Pulse Rate [ Anterior Bilateral Throughout] Pulse Rate [ From Monitor] Respiratory 14 14 14 Rate Respiratory Rate [Anterior Bilateral Throughout] Blood Pressure 112/34 112/34 111/41 O2 Sat by Pulse 100 100 100 Oximetry 05/18/22 05/18/22 05/18/22 06:00 06:15 06:30 Temperature Pulse Rate 81 75 83 Pulse Rate [ Anterior Bilateral Throughout] Pulse Rate [ From Monitor] Respiratory 15 13 16 Rate Respiratory Rate [Anterior Bilateral Throughout] Blood Pressure 90/67 96/48 96/48 O2 Sat by Pulse 100 100 100 Oximetry 05/18/22 05/18/22 05/18/22 06:46 07:00 07:13 Temperature 98.8 F Pulse Rate 76 101 H Pulse Rate [ Anterior Bilateral Throughout] Pulse Rate [ From Monitor] Respiratory 14 18 Rate Respiratory Rate [Anterior Bilateral Throughout] Blood Pressure 88/59 82/60 O2 Sat by Pulse 89 Oximetry 05/18/22 05/18/22 05/18/22 07:16 07:30 07:46 Temperature Pulse Rate 80 79 92 H Pulse Rate [ Anterior Bilateral Throughout] Pulse Rate [ From Monitor] Respiratory 15 14 16 Rate Respiratory Rate [Anterior Bilateral Throughout] Blood Pressure 82/60 94/74 95/68 O2 Sat by Pulse 94 100 Oximetry 05/18/22 05/18/22 05/18/22 08:00 08:16 08:22 Temperature 98.8 F Pulse Rate 88 112 H 98 H Pulse Rate [ Anterior Bilateral Throughout] Pulse Rate [ 84 From Monitor] Respiratory 15 17 Rate Respiratory Rate [Anterior Bilateral Throughout] Blood Pressure 95/68 103/53 O2 Sat by Pulse 96 100 100 Oximetry 05/18/22 05/18/22 05/18/22 08:30 08:39 08:46 Temperature Pulse Rate 99 H 92 H Pulse Rate [ 119 H Anterior Bilateral Throughout] Pulse Rate [ From Monitor] Respiratory 14 14 Rate Respiratory 16 Rate [Anterior Bilateral Throughout] Blood Pressure 95/65 95/65 O2 Sat by Pulse 100 100 Oximetry 05/18/22 05/18/22 05/18/22 09:00 09:16 09:30 Temperature Pulse Rate 103 H 86 109 H Pulse Rate [ Anterior Bilateral Throughout] Pulse Rate [ From Monitor] Respiratory 14 12 13 Rate Respiratory Rate [Anterior Bilateral Throughout] Blood Pressure 95/69 95/69 115/92 O2 Sat by Pulse 100 100 100 Oximetry 05/18/22 05/18/22 05/18/22 09:46 10:00 10:16 Temperature Pulse Rate 113 H 109 H 114 H Pulse Rate [ Anterior Bilateral Throughout] Pulse Rate [ From Monitor] Respiratory 12 15 14 Rate Respiratory Rate [Anterior Bilateral Throughout] Blood Pressure 115/92 115/92 92/62 O2 Sat by Pulse 100 100 100 Oximetry 05/18/22 05/18/22 05/18/22 10:30 10:46 11:00 Temperature Pulse Rate 123 H 108 H 115 H Pulse Rate [ Anterior Bilateral Throughout] Pulse Rate [ From Monitor] Respiratory 12 16 9 L Rate Respiratory Rate [Anterior Bilateral Throughout] Blood Pressure 139/86 139/86 139/86 O2 Sat by Pulse 100 100 100 Oximetry 05/18/22 11:16 Temperature Pulse Rate 117 H Pulse Rate [ Anterior Bilateral Throughout] Pulse Rate [ From Monitor] Respiratory 10 L Rate Respiratory Rate [Anterior Bilateral Throughout] Blood Pressure 143/52 O2 Sat by Pulse 100 Oximetry Constitutional: no acute distress, alert, other (on mechanical ventilation, o rally intubated , ETT at 24 cm.) Eyes: non-icteric ENT: oropharynx moist Neck: supple, no JVD, other (RIJ CVL) Effort: normal Ascultation: Bilateral: diminished breath sounds, rhonchi Cardiovascular: irregular rhythm, other (S1,S2) Gastrointestinal: normoactive bowel sounds, hypoactive bowel sounds, soft, non- tender, other (Richter in the PEG tube site) Integumentary: normal Extremities: no cyanosis, no edema Neurologic: normal mental status, non-focal exam (moves all his limbs), motor strength normal and, other ( intubated and on mechanical ventilation.) Psychiatric: other (Can not assess. Patient sedated and on mechanical ventilation.) CBC and BMP: 05/22/22 03:59 05/22/22 03:59 ABG, PT/INR, D-dimer: ABG ABG pH 7.367 pH Units (7.350-7.450) 05/18/22 06:00 ABG pCO2 44.9 mm Hg 05/18/22 06:00 ABG pO2 158.7 mm Hg (80.0-90.0) H 05/18/22 06:00 ABG O2 Saturation 98.9 % (95.0-99.0) 05/18/22 06:00 Abnormal lab findings: Abnormal Labs 05/17/22 05/17/22 05/17/22 14:26 14:28 15:10 WBC 4.0 L RBC 2.86 L Hgb 8.4 L Hct 24.9 L RDW 20.9 H Plt Count [place] % (Auto) 14.7 H Lymph # (Auto) 0.6 L ABG pO2 191.6 H ABG O2 Saturation 99.2 H ABG Hemoglobin 9.0 L Sodium 126 L Potassium 6.0 H Chloride 91.0 L BUN 42 H Creatinine 6.9 H ALT < 5 L Total Protein 6.1 L Albumin 2.9 L 05/18/22 05/18/22 05/18/22 04:13 04:20 06:00 WBC 3.0 L RBC 2.87 L Hgb 8.1 L Hct 25.3 L RDW 20.7 H Plt Count 127 L [place] % (Auto) 15.1 H Lymph # (Auto) 0.5 L ABG pO2 158.7 H ABG O2 Saturation ABG Hemoglobin 9.4 L Sodium 128 L Potassium 6.8 H* Chloride 93.7 L BUN 48 H Creatinine 6.8 H ALT Total Protein Albumin Chest x-ray: image reviewed Allied health notes reviewed: RT
--- NOTE | 2022-05-18 13:03 | XRay Report ---
ABDOMEN 1 VIEW 05/18/2022 INDICATION / CLINICAL INFORMATION: OGT placement. COMPARISON: None available. FINDINGS: TUBES / LINES: Enteric tube terminates within the stomach with the side-port within the stomach as we ll. BOWEL GAS PATTERN: No significant abnormality. FREE AIR / EXTRALUMINAL GAS: None seen. ADDITIONAL FINDINGS: No significant additional findings. IMPRESSION: 1. Enteric tube terminates within the stomach with the side-port within the stomach as well. Signer Name: Fabricio Nesbitt DO Signed: 05/18/2022 12:58 PM Workstation Name: [email or web address]
--- NOTE | 2022-05-18 13:05 | XRay Report ---
CHEST 1 VIEW 05/18/2022 11:54 AM INDICATION / CLINICAL INFORMATION: resp failure on MVS. COMPARISON: 05/17/2022 and 05/18/2022 FINDINGS: SUPPORT DEVICES: Interval placement of an enteric tube, better evaluated on concurrent abdominal radi ograph. Otherwise, the lines and tubes unchanged compared to prior radiograph. HEART / MEDIASTINUM: Cardiomegaly LUNGS / PLEURA: Left pleural-parenchymal opacity. There is pulmonary vascular indistinctness. No pneu mothorax. ADDITIONAL FINDINGS: No significant additional findings. IMPRESSION: 1. Pleural parenchymal opacity involving the left lung base which may represent a layering pleural ef fusion with adjacent atelectasis. Superimposed infectious process is not excluded. 2. Pulmonary vascular indistinctness suggesting pulmonary edema. Signer Name: Fabricio Nesbitt DO Signed: 05/18/2022 1:00 PM Workstation Name: [email or web address]
[2022-05-18] MEDS ORDERED: DEXTROSE 50% IN WATER (25GM) 50 ML SYRINGE IV PRN (15:00)
--- NOTE | 2022-05-18 17:51 | Progress Note ---
Assessment and Plan Assessment and plan: This is a 56-year-old male with HTN, cardiomyopathy, ESRD on HD, COPD, former cocaine abuser, SDH with left shift and hemoperitoneum s/p decompressive craniotomy and paracentesis, acute hypoxic respiratory failure s/p tracheostomy with eventual decannulation who was admitted with acute hypoxic respiratory failure. Neuro: h/o SDH with left shift s/p decompressive craniotomy, h/o cocaine abuse -Sedated with Precedex -RASS goal 0 to -1 -Reorientation as needed -Maintain sleep-wake cycle -As needed analgesia Cardiac: h/o cardiomyopathy, HTN, A. fib -Blood pressure monitoring per protocol -Amiodarone Respiratory: Acute hypoxic respiratory failure, s/p tracheostomy with eventual decannulation, COPD -CCM consulted, appreciate recommendations -Intubated on 05/17 at OSH 7.50 ETT at 22 the lip -A.m. vent settings: Assist-control tidal volume 450, rate 15, PEEP 6, FiO2 40% -See RT notes for titration -A.m. ABG and CXR noted -VAP bundle -SPO2 monitoring -Of note patient self decannulated on 05/05 GI: Moderate protein calorie malnutrition -S/p PEG tube placement -24 hours +92 mL -PPI -NTR consulted for tube feedings -BR: Senokot -S/p paracentesis at [facility] on 05/06 with removal of 2.7 L : ESRD on HD, hyperkalemia -Nephrology consulted, appreciate recommendations -Monitor intake and output -Renally dose medications -Avoid nephrotoxic medications -Trend BMP ID: SIRS vs Sepsis -Leukopenia, CXR showed left-sided effusion with associated opacity and mild right basilar atelectasis -COVID-19 PCR negative, MRSA PCR negative -Antibiotic therapy with cefepime -f/u blood culture -Monitor WBC and temperature curve Endo: NAD -Avoid hypoglycemia -Accu-Cheks q. 6 Heme: Leukopenia -Trend CBC -Transfuse hemoglobin less than 7 -SCDs to BLE while in bed The high probability of a clinically significant, sudden or life threatening deterioration of the [multi] system(s) required my full and direct attention, intervention and personal management. The aggregate critical care time was [60] minutes. This time is in addition to time spent performing reported procedures but includes the following: [x] Data Review and interpretation [x] Patient assessment and monitoring of vital signs [x] Documentation [x] Medication orders and management Disposition Plan: icu Total Time Spent with Patient (Minutes): 60 History Interval history: This is a 56-year-old male with HTN, cardiomyopathy, ESRD on HD, COPD, former cocaine and nicotine abuser with surgery admitted to [facility] on 03/23/2022 after a fall where he suffered a large subdural hematoma with left shift and hemoperitoneum. Patient underwent a decompressive craniotomy and paracentesis. He was also intubated and subsequently received tracheostomy and PEG tube and transferred to [facility]. While at LTAC patient was weaned off the ventilator and decannulated. On 05/17 patient was noted to be very anxious, possible seizure-like activity and patient was in intubated and transported to [facility] for further care mainly central line placement. Patient had a CXR which showed left-sided effusion with associated opacity in mid right basilar atelectasis. Patient was sedated on Precedex and fentanyl with as needed Versed. Patient was admitted to the hospital service with consults to [facility] and nephrology. Hospital course to date: 05/18: Patient is following commands remains sedated on Precedex. Patient will receive hemodialysis today. Likely will CPAP tomorrow. NG tube placed and started on tube feedings. Hospitalist Physical - Constitutional Vitals: Temp Pulse Resp BP Pulse Ox 98.2 F 110 H 12 110/67 99 05/18/22 16:29 05/18/22 17:45 05/18/22 17:30 05/18/22 17:45 05/18/22 17:30 General appearance: Present: no acute distress, well-nourished, other (Agitated) - EENT Eyes: Present: PERRL, EOM intact ENT: poor dentition - Neck Neck: Present: normal ROM - Respiratory Respiratory effort: normal Respiratory: bilateral: diminished, rhonchi - Cardiovascular Rhythm: irregularly irregular Heart Sounds: Present: S1 & S2. Absent: systolic murmur, diastolic murmur - Extremities Extremities: no ischemia, pulses intact, pulses symmetrical, No edema, normal temperature, normal color Peripheral Pulses: within normal limits - Abdominal General gastrointestinal: soft, non-tender, normal bowel sounds - Integumentary Integumentary: Present: warm, dry - Psychiatric Psychiatric: appropriate mood/affect, cooperative - Neurologic Neurologic: CNII-XII intact, no focal deficits, moves all extremities - Allied Health Allied health notes reviewed: nursing, RT, social work Results - Labs CBC & Chem 7: 05/18/22 04:20 05/18/22 04:13 Labs: Laboratory Last Values WBC 3.0 K/mm3 (4.5-11.0) L 05/18/22 04:20 RBC 2.87 M/mm3 (3.65-5.03) L 05/18/22 04:20 Hgb 8.1 gm/dl (11.8-15.2) L 05/18/22 04:20 Hct 25.3 % (35.5-45.6) L 05/18/22 04:20 MCV 88 fl (84-94) 05/18/22 04:20 MCH 28 pg (28-32) 05/18/22 04:20 MCHC 32 % (32-34) 05/18/22 04:20 RDW 20.7 % (13.2-15.2) H 05/18/22 04:20 Plt Count 127 K/mm3 (140-440) L 05/18/22 04:20 Lymph % (Auto) 16.2 % (13.4-35.0) 05/18/22 04:20 [place] % (Auto) 15.1 % (0.0-7.3) H 05/18/22 04:20 Eos % (Auto) 3.1 % (0.0-4.3) 05/18/22 04:20 Baso % (Auto) 1.1 % (0.0-1.8) 05/18/22 04:20 Lymph # (Auto) 0.5 K/mm3 (1.2-5.4) L 05/18/22 04:20 [place] # (Auto) 0.5 K/mm3 (0.0-0.8) 05/18/22 04:20 Eos # (Auto) 0.1 K/mm3 (0.0-0.4) 05/18/22 04:20 Baso # (Auto) 0.0 K/mm3 (0.0-0.1) 05/18/22 04:20 Seg Neutrophils % 64.5 % (40.0-70.0) 05/18/22 04:20 Seg Neutrophils # 2.0 K/mm3 (1.8-7.7) 05/18/22 04:20 ABG pH 7.367 pH Units (7.350-7.450) 05/18/22 06:00 ABG pCO2 44.9 mm Hg 05/18/22 06:00 ABG pO2 158.7 mm Hg (80.0-90.0) H 05/18/22 06:00 ABG HCO3 25.2 mmol/L (20.0-26.0) 05/18/22 06:00 ABG O2 Saturation 98.9 % (95.0-99.0) 05/18/22 06:00 ABG O2 Content 13.0 (0.0-44) 05/18/22 06:00 ABG Base Excess -0.3 mmol/L (-2.0-3.0) 05/18/22 06:00 ABG Hemoglobin 9.4 gm/dl (14.0-18.0) L 05/18/22 06:00 ABG Carboxyhemoglobin 2.3 % (0.0-5.0) 05/18/22 06:00 ABG Methemoglobin 0.5 % (0.0-1.5) 05/18/22 06:00 Oxyhemoglobin 96.2 % (95.0-99.0) 05/18/22 06:00 FiO2 40 % 05/18/22 06:00 Sodium 128 mmol/L (137-145) L 05/18/22 04:13 Potassium 6.8 mmol/L (3.6-5.0) H* 05/18/22 04:13 Chloride 93.7 mmol/L (98-107) L 05/18/22 04:13 Carbon Dioxide 24 mmol/L (22-30) 05/18/22 04:13 Anion Gap 17 mmol/L 05/18/22 04:13 BUN 48 mg/dL (9-20) H 05/18/22 04:13 Creatinine 6.8 mg/dL (0.8-1.3) H 05/18/22 04:13 Estimated GFR 9 ml/min 05/18/22 04:13 BUN/Creatinine Ratio 7 % 05/18/22 04:13 Glucose 77 mg/dL (75-100) 05/18/22 04:13 POC Glucose 95 mg/dL (70-105) 05/18/22 13:23 Calcium 8.8 mg/dL (8.4-10.2) 05/18/22 04:13 Total Bilirubin 0.40 mg/dL (0.1-1.2) 05/17/22 14:28 AST 7 units/L (5-40) 05/17/22 14:28 ALT < 5 units/L (7-56) L 05/17/22 14:28 Alkaline Phosphatase 78 units/L (35-129) 05/17/22 14:28 Total Protein 6.1 g/dL (6.3-8.2) L 05/17/22 14:28 Albumin 2.9 g/dL (3.9-5) L 05/17/22 14:28 Albumin/Globulin Ratio 0.9 % 05/17/22 14:28 Nasal Screen MRSA (PCR) Negative (Negative) 05/18/22 08:30 Coronavirus (PCR) Negative (Negative) 05/18/22 07:57 Active Medications - Current Medications Current Medications: Generic Name Dose Route Start Last Admin Trade Name Freq PRN Reason Stop Dose Admin Acetaminophen 650 mg 05/17/22 14:26 Acetaminophen 325 Mg Tab PO Q4H PRN Pain MILD(1-3)/Fever >100.5/DYER Albumin Human 25 gm 05/18/22 09:10 Albumin Human 25% (25 Gm/100 Ml) Inj IV TOM PRN Hypotension Albuterol 2.5 mg 05/18/22 06:02 Albuterol 2.5 Mg/3 Ml Nebu IH Q3HRT PRN Wheezing Amiodarone HCl 200 mg 05/18/22 10:00 05/18/22 12:16 Amiodarone 200 Mg Tab PO 200 mg BID DAQUAN Administration Dextrose 25 ml 05/18/22 15:00 Dextrose 50% In Water (25gm) 50 Ml Syringe IV Q30MIN PRN Hypoglycemia Protocol Dextrose 50 ml 05/18/22 15:00 Dextrose 50% In Water (25gm) 50 Ml Syringe IV Q30MIN PRN Hypoglycemia Protocol Epoetin Jacinto-epbx 10,000 unit 05/18/22 09:10 Epoetin Jacinto-Epbx 10,000 Unit/1 Ml Vial IV TOM PRN hemodialysis Famotidine 20 mg 05/18/22 10:00 05/18/22 09:23 Famotidine 20 Mg/2 Ml Inj IV 20 mg DAILY DAQUAN Administration Fentanyl 50 mcg 05/17/22 19:06 Fentanyl 100 Mcg/2 Ml Inj IV Q10MIN PRN ANALGESIA Heparin Sodium (Porcine) 5,000 unit 05/17/22 22:00 05/18/22 09:23 Heparin 5,000 Unit/1 Ml Vial SUB-Q 5,000 unit Q12HR [facility] Administration Dexmedetomidine HCl 400 mcg/ 104 mls @ 3.968 mls/hr 05/17/22 16:00 05/18/22 17:15 Sodium Chloride IV 1.4 mcg/kg/hr TITRATE DAQUAN 27.773 mls/hr Administration Protocol 0.2 MCG/KG/HR Fentanyl Citrate 2,000 mcg in 100 mls @ 3.815 mls/hr 05/17/22 20:00 05/18/22 15:27 Fentanyl Drip Premix IV 3 mcg/kg/hr TITR DAQUAN 11.445 mls/hr Administration Protocol 1 MCG/KG/HR Sodium Chloride 100 mls @ 999 mls/hr 05/18/22 09:10 Nacl 0.9% IV TOM PRN Hypotension Cefepime HCl 1 gm in 100 mls @ 200 mls/hr 05/19/22 11:00 Cefepime/Ns 1 Gm/100 Ml IV Q24H [facility] Protocol Methylprednisolone Sodium Succinate 60 mg 05/18/22 06:00 05/18/22 13:26 Methylprednisolone Sod Succinate 125 Mg/2 Ml Inj IV 60 mg Q8HR [facility] Administration Metoclopramide HCl 5 mg 05/18/22 09:00 05/18/22 09:22 Metoclopramide 10 Mg/2 Ml Inj IV 5 mg Q6H PRN Administration Nausea And Vomiting Midazolam HCl 2 mg 05/17/22 19:03 05/17/22 22:50 Midazolam 2 Mg/2 Ml Inj IV 2 mg Q3H PRN Administration Agitation Morphine Sulfate 2 mg 05/17/22 14:26 Morphine 2 Mg/1 Ml Inj IV Q4H PRN Pain, Moderate (4-6) Ondansetron HCl 4 mg 05/17/22 14:26 Ondansetron 4 Mg/2 Ml Inj IV Q3H PRN Nausea And Vomiting Sodium Chloride 10 ml 05/17/22 22:00 05/18/22 09:45 Sodium Chloride 0.9% 10 Ml Flush Syringe IV 10 ml BID DAQUAN Administration Sodium Chloride 10 ml 05/17/22 14:26 Sodium Chloride 0.9% 10 Ml Flush Syringe IV PRN PRN LINE FLUSH Nutrition/Malnutrition Assess - Dietary Evaluation Nutrition/Malnutrition Findings: Nutrition Notes Start: 05/18/22 14:16 Freq: Status: Active Protocol: Document 05/18/22 14:16 ASHLYN (Rec: 05/18/22 14:22 [email or web address]) Nutrition Notes Need for Assessment generated from: 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 Pt intubated and has a hx of intubation and PEG tube placement. Burn Absent Trauma Absent Skin Integrity/Comment Pt with (R) hand wound Minimum of two criteria No #1 Nutrition Diagnosis Swallowing difficulty [facility] As Evidenced by Signs and Symptoms pt NPO Is patient on ventilator? Yes Is Patient Ambulatory and/or Out of Bed No REE-([facility]-confined to bed) 4.672 Calculation Used for Recommendations [facility] Additional Notes Pro needs >1.2g/kg: >92g/day Fluid needs 1-1.5L/day Nutrition Intervention Nutrition Support: Nepro at 45ml/hr with 120ml water flush q4h. Kcal 1,944 Protein (gm) 87 Carbohydrates (gm) 174 Fat (gm) 104 Fluid (mL) 785 Fiber (gm) 14 Goal #1 TF tolerance Goal #2 TF to meet at least 75% energy and pro needs Anticipated Discharge Needs: Continue EN support if necessary Follow-Up By: 05/20/22 Additional Comments F/U: new TF, vent status
[2022-05-18 19:08] LABS: Hepatitis B Surface Antigen Non-Reactive (Negative); Hepatitis C Virus Antibody Reactive (NonReactive)
[2022-05-18] MEDS: MIDAZOLAM 2 MG/2 ML INJ IV PRN (19:19)
[2022-05-19] MEDS: MIDAZOLAM 2 MG/2 ML INJ IV PRN (00:05)
[2022-05-19 03:41] LABS: Hematocrit 26.2 % (35.5-45.6); Hemoglobin 8.5 gm/dl (11.8-15.2); Mean Corpuscular HGB Conc 33 % (32-34); Mean Corpuscular Volume 89 fl (84-94); Platelet Count 137 K/mm3 (140-440); Red Blood Count 2.94 M/mm3 (3.65-5.03)
[2022-05-19 04:01] LABS: Calcium 8.3 mg/dL (8.4-10.2); Red Cell Distribution Width 20.3 % (13.2-15.2)
[2022-05-19] MEDS: methylPREDNISolone Sod Succinate 125 MG/2 ML INJ IV SCH ×3 (05:22→21:35)
[2022-05-19] MEDS: ONDANSETRON 4 MG/2 ML INJ IV PRN ×3 (06:55→22:46)
[2022-05-19] MEDS: METOCLOPRAMIDE 10 MG/2 ML INJ IV PRN (07:53)
--- NOTE | 2022-05-19 08:48 | Progress Note ---
Assessment and Plan Acute hypoxemic respiratory failure on mechanical ventilatory support Acute toxic metabolic encephalopathy Left subdural hematoma s/p evacuation End-stage renal disease on dialysis Hypertension COPD CMOP H/O Cocaine abuse Oropharyngeal dysphagia SBT today, get weaning parameters and if acceptable, plan to liberate from MVS -VAP bundle addressed, aspiration precautions HOB >40 -CXR,ABG as indicated -Daily SAT,SBT as tolerated -continue bronchodilators with pulmonary hygiene per RT -continue to wean per pulmonary driven protocols -continue HD/UF per nephrology prescription for toxin and volume clearance -prn analgesia per pain score - follow clinically re: fever curves / trend WBC - Avoid delirium (no benzodiazepines if they can be avoided) - Maintain sleep-wake cycle - enteral nutrition at goal rate as tolerated - accuchecks with glycemic control per SSI for target blood glucose goal of < 180 mg/dL; Avoid hypoglycemia - VTE prophylaxis with Heparin - stress ulcer prophylaxis with Pantoprazole - fall precautions - Supportive transfusions to keep Hb>7g/dL - continue to monitor neurologic function - continue chronic home medications as indicated - continue all supportive care The high probability of a clinically significant, sudden or life threatening de terioration of the respiratory, neurology, system(s) required my full and direct attention, intervention and personal management. The aggregate critical care time was [33] minutes. This time is in addition to time spent performing reported procedures but includes the following: [x] Data Review and interpretation [x] Patient assessment and monitoring of vital signs [x] Documentation [x] Medication orders and management Subjective Date of service: 05/19/22 Interval history: Patient is being seen today for Acute hypoxemic respiratory failure; AMS; Left SDH; ESRD on dialysis; COPD; H/O Cocaine abuse Seen and examined at bedside; 24hr events reviewed; nursing and respiratory care staff consulted; no adverse overnight events reported to me; resting peacefully in bed;orally intubated with some agitation, no fevers, no chills, no vomiting He tolerated SBT yesterday but needed to get HD/UF prior to extubation. HD was delayed Objective Vital Signs - 12hr 05/18/22 05/18/22 05/18/22 21:00 21:16 21:30 Temperature Pulse Rate 95 H 95 H 107 H Pulse Rate [ From Monitor] Respiratory 12 13 16 Rate Blood Pressure 159/86 118/52 124/59 O2 Sat by Pulse 99 100 100 Oximetry 05/18/22 05/18/22 05/18/22 21:46 22:00 22:16 Temperature Pulse Rate 104 H 90 97 H Pulse Rate [ From Monitor] Respiratory 15 17 14 Rate Blood Pressure 153/80 152/96 142/72 O2 Sat by Pulse 100 99 100 Oximetry 05/18/22 05/18/22 05/18/22 22:30 22:46 23:00 Temperature Pulse Rate 94 H 97 H 96 H Pulse Rate [ From Monitor] Respiratory 15 14 18 Rate Blood Pressure 164/68 143/76 164/69 O2 Sat by Pulse 99 100 100 Oximetry 05/18/22 05/18/22 05/18/22 23:16 23:30 23:46 Temperature Pulse Rate 91 H 89 88 Pulse Rate [ From Monitor] Respiratory 15 15 14 Rate Blood Pressure 99/72 130/56 143/70 O2 Sat by Pulse 100 100 99 Oximetry 05/19/22 05/19/22 05/19/22 00:00 00:11 00:16 Temperature 98.4 F Pulse Rate 94 H 94 H 96 H Pulse Rate [ 98 H From Monitor] Respiratory 16 14 Rate Blood Pressure 141/84 148/79 148/79 O2 Sat by Pulse 100 99 100 Oximetry 05/19/22 05/19/22 05/19/22 00:30 00:46 01:00 Temperature Pulse Rate 92 H 91 H 87 Pulse Rate [ From Monitor] Respiratory 16 15 15 Rate Blood Pressure 138/82 135/68 134/65 O2 Sat by Pulse 96 96 98 Oximetry 05/19/22 05/19/22 05/19/22 01:16 01:30 01:46 Temperature Pulse Rate 101 H 91 H 94 H Pulse Rate [ From Monitor] Respiratory 12 13 15 Rate Blood Pressure 116/89 148/85 185/48 O2 Sat by Pulse 100 100 99 Oximetry 05/19/22 05/19/22 05/19/22 02:00 02:16 02:30 Temperature Pulse Rate 93 H 90 104 H Pulse Rate [ From Monitor] Respiratory 14 16 12 Rate Blood Pressure 135/83 164/127 160/139 O2 Sat by Pulse 100 100 Oximetry 05/19/22 05/19/22 05/19/22 02:46 03:00 03:16 Temperature Pulse Rate 96 H 95 H 88 Pulse Rate [ From Monitor] Respiratory 12 13 11 L Rate Blood Pressure 145/70 160/139 144/80 O2 Sat by Pulse 100 100 100 Oximetry 05/19/22 05/19/22 05/19/22 03:30 03:40 03:46 Temperature Pulse Rate 100 H 110 H 103 H Pulse Rate [ From Monitor] Respiratory 12 13 Rate Blood Pressure 121/58 162/97 152/74 O2 Sat by Pulse 100 100 100 Oximetry 05/19/22 05/19/22 05/19/22 04:00 04:16 04:30 Temperature 97.6 F Pulse Rate 118 H 118 H 116 H Pulse Rate [ 102 H From Monitor] Respiratory 9 L 9 L 11 L Rate Blood Pressure 162/97 180/100 142/106 O2 Sat by Pulse 100 99 100 Oximetry 05/19/22 05/19/22 05/19/22 04:46 05:00 05:16 Temperature Pulse Rate 105 H 126 H 120 H Pulse Rate [ From Monitor] Respiratory 14 8 L 11 L Rate Blood Pressure 136/106 146/105 136/109 O2 Sat by Pulse 100 100 100 Oximetry 05/19/22 05/19/22 05/19/22 05:30 05:46 06:00 Temperature Pulse Rate 117 H 99 H 115 H Pulse Rate [ From Monitor] Respiratory 17 11 L 13 Rate Blood Pressure 143/109 136/99 155/114 O2 Sat by Pulse 100 100 100 Oximetry 05/19/22 05/19/22 05/19/22 06:16 06:30 06:46 Temperature Pulse Rate 122 H 109 H 133 H Pulse Rate [ From Monitor] Respiratory 12 12 11 L Rate Blood Pressure 159/84 158/103 171/93 O2 Sat by Pulse 99 100 Oximetry 05/19/22 05/19/22 05/19/22 07:00 07:16 07:22 Temperature 97.5 F L Pulse Rate 121 H 118 H Pulse Rate [ From Monitor] Respiratory 11 L 10 L Rate Blood Pressure 163/85 163/85 O2 Sat by Pulse 100 100 Oximetry 05/19/22 05/19/22 05/19/22 07:23 07:30 07:45 Temperature 98.9 F Pulse Rate 120 H 99 H Pulse Rate [ From Monitor] Respiratory 10 L 14 Rate Blood Pressure 164/117 181/96 O2 Sat by Pulse 100 100 Oximetry 05/19/22 08:00 Temperature 98.9 F Pulse Rate 117 H Pulse Rate [ 132 H From Monitor] Respiratory 14 Rate Blood Pressure 160/97 O2 Sat by Pulse 99 Oximetry Constitutional: no acute distress, alert, asleep, other (ETT, on mechanical ventilation.) Eyes: non-icteric ENT: oropharynx moist Neck: supple, no lymphadenopathy, no JVD Effort: normal Ascultation: Bilateral: diminished breath sounds, rhonchi Cardiovascular: irregular rhythm, other (S1,S2) Gastrointestinal: normoactive bowel sounds, hypoactive bowel sounds, soft, non- tender (PEG stoma with ostmy pouch) Integumentary: normal Extremities: no cyanosis, no edema, pulses normal Neurologic: normal mental status, non-focal exam, pupils equal and round, motor strength normal and Psychiatric: mood appropriate, anxious CBC and BMP: 05/22/22 03:59 05/22/22 03:59 ABG, PT/INR, D-dimer: ABG ABG pH 7.367 pH Units (7.350-7.450) 05/18/22 06:00 ABG pCO2 44.9 mm Hg 05/18/22 06:00 ABG pO2 158.7 mm Hg (80.0-90.0) H 05/18/22 06:00 ABG O2 Saturation 98.9 % (95.0-99.0) 05/18/22 06:00 Abnormal lab findings: Abnormal Labs 05/17/22 05/17/22 05/17/22 14:26 14:28 15:10 WBC 4.0 L RBC 2.86 L Hgb 8.4 L Hct 24.9 L RDW 20.9 H Plt Count Mccone % (Auto) 14.7 H Lymph # (Auto) 0.6 L ABG pO2 191.6 H ABG O2 Saturation 99.2 H ABG Hemoglobin 9.0 L Sodium 126 L Potassium 6.0 H Chloride 91.0 L BUN 42 H Creatinine 6.9 H Glucose POC Glucose Calcium ALT < 5 L Total Protein 6.1 L Albumin 2.9 L Hepatitis C Antibody 05/18/22 05/18/22 05/18/22 04:13 04:20 06:00 WBC 3.0 L RBC 2.87 L Hgb 8.1 L Hct 25.3 L RDW 20.7 H Plt Count 127 L Mccone % (Auto) 15.1 H Lymph # (Auto) 0.5 L ABG pO2 158.7 H ABG O2 Saturation ABG Hemoglobin 9.4 L Sodium 128 L Potassium 6.8 H* Chloride 93.7 L BUN 48 H Creatinine 6.8 H Glucose POC Glucose Calcium ALT Total Protein Albumin Hepatitis C Antibody 05/18/22 05/18/22 05/18/22 17:49 18:10 23:15 WBC RBC Hgb Hct RDW Plt Count Mccone % (Auto) Lymph # (Auto) ABG pO2 ABG O2 Saturation ABG Hemoglobin Sodium Potassium Chloride BUN Creatinine Glucose POC Glucose 144 H 145 H Calcium ALT Total Protein Albumin Hepatitis C Antibody Reactive A 05/19/22 05/19/22 05/19/22 03:18 03:18 05:21 WBC 2.6 L RBC 2.94 L Hgb 8.5 L Hct 26.2 L RDW 20.3 H Plt Count 137 L Mccone % (Auto) Lymph # (Auto) ABG pO2 ABG O2 Saturation ABG Hemoglobin Sodium Potassium 5.1 H D Chloride BUN 34 H Creatinine 4.9 H Glucose 130 H POC Glucose 143 H Calcium 8.3 L ALT Total Protein Albumin Hepatitis C Antibody Chest x-ray: image reviewed
[2022-05-19] MEDS: FAMOTIDINE 20 MG/2 ML INJ IV SCH (09:18)
[2022-05-19] MEDS: HEPARIN 5,000 UNIT/1 ML VIAL SUB-Q SCH ×2 (09:18→21:34)
[2022-05-19] MEDS: CEFEPIME/NS 1 GM/100 ML 1 GM/100 ML BAG IV SCH (10:15)
[2022-05-19] MEDS: AMIODARONE 200 MG TAB PO SCH (11:16)
--- NOTE | 2022-05-19 11:36 | Progress Note ---
Assessment and Plan - Patient Problems (1) Hyperkalemia Current Visit: Yes Status: Acute Plan to address problem: levels have improved with hemodialysis. Please ensure that when appropriate that patient be placed on a low potassium diet. (2) Acute respiratory failure with hypoxia Current Visit: Yes Status: Acute Plan to address problem: Ventilator management per ICU/pulmonary team. (3) ESRD on dialysis Current Visit: Yes Status: Chronic Plan to address problem: Have started patient on Wednesday/Wednesday/Wednesday inpatient hemodialysis schedule. Discussed with dialysis staff. (4) HTN (hypertension) Current Visit: Yes Status: Chronic Qualifiers: Hypertension type: primary hypertension Qualified Code(s): I10 - Essential (primary) hypertension Plan to address problem: monitor blood pressures on her current regimen. Stable this morning. (5) Subdural hematoma Current Visit: Yes Status: Chronic Plan to address problem: Status post craniotomy and decompression. Subjective Date of service: 05/19/22 Interval history: no acute issues overnight. Patient tolerated dialysis well. He is awake but remains intubated. He is following commands. No other acute issues per nursing staff. Objective - Vital Signs Vital signs: Vital Signs - 12hr 05/18/22 05/19/22 05/19/22 23:46 00:00 00:11 Temperature 98.4 F Pulse Rate 88 94 H 94 H Pulse Rate [ 98 H From Monitor] Respiratory 14 16 Rate Blood Pressure 143/70 141/84 148/79 O2 Sat by Pulse 99 100 99 Oximetry 05/19/22 05/19/22 05/19/22 00:16 00:30 00:46 Temperature Pulse Rate 96 H 92 H 91 H Pulse Rate [ From Monitor] Respiratory 14 16 15 Rate Blood Pressure 148/79 138/82 135/68 O2 Sat by Pulse 100 96 96 Oximetry 05/19/22 05/19/22 05/19/22 01:00 01:16 01:30 Temperature Pulse Rate 87 101 H 91 H Pulse Rate [ From Monitor] Respiratory 15 12 13 Rate Blood Pressure 134/65 116/89 148/85 O2 Sat by Pulse 98 100 100 Oximetry 05/19/22 05/19/22 05/19/22 01:46 02:00 02:16 Temperature Pulse Rate 94 H 93 H 90 Pulse Rate [ From Monitor] Respiratory 15 14 16 Rate Blood Pressure 185/48 135/83 164/127 O2 Sat by Pulse 99 100 100 Oximetry 05/19/22 05/19/22 05/19/22 02:30 02:46 03:00 Temperature Pulse Rate 104 H 96 H 95 H Pulse Rate [ From Monitor] Respiratory 12 12 13 Rate Blood Pressure 160/139 145/70 160/139 O2 Sat by Pulse 100 100 Oximetry 05/19/22 05/19/22 05/19/22 03:16 03:30 03:40 Temperature Pulse Rate 88 100 H 110 H Pulse Rate [ From Monitor] Respiratory 11 L 12 Rate Blood Pressure 144/80 121/58 162/97 O2 Sat by Pulse 100 100 100 Oximetry 05/19/22 05/19/22 05/19/22 03:46 04:00 04:16 Temperature 97.6 F Pulse Rate 103 H 118 H 118 H Pulse Rate [ 102 H From Monitor] Respiratory 13 9 L 9 L Rate Blood Pressure 152/74 162/97 180/100 O2 Sat by Pulse 100 100 99 Oximetry 05/19/22 05/19/22 05/19/22 04:30 04:46 05:00 Temperature Pulse Rate 116 H 105 H 126 H Pulse Rate [ From Monitor] Respiratory 11 L 14 8 L Rate Blood Pressure 142/106 136/106 146/105 O2 Sat by Pulse 100 100 100 Oximetry 05/19/22 05/19/22 05/19/22 05:16 05:30 05:46 Temperature Pulse Rate 120 H 117 H 99 H Pulse Rate [ From Monitor] Respiratory 11 L 17 11 L Rate Blood Pressure 136/109 143/109 136/99 O2 Sat by Pulse 100 100 100 Oximetry 05/19/22 05/19/22 05/19/22 06:00 06:16 06:30 Temperature Pulse Rate 115 H 122 H 109 H Pulse Rate [ From Monitor] Respiratory 13 12 12 Rate Blood Pressure 155/114 159/84 158/103 O2 Sat by Pulse 100 99 100 Oximetry 05/19/22 05/19/22 05/19/22 06:46 07:00 07:16 Temperature Pulse Rate 133 H 121 H 118 H Pulse Rate [ From Monitor] Respiratory 11 L 11 L 10 L Rate Blood Pressure 171/93 163/85 163/85 O2 Sat by Pulse 100 100 Oximetry 05/19/22 05/19/22 05/19/22 07:22 07:23 07:30 Temperature 97.5 F L 98.9 F Pulse Rate 120 H Pulse Rate [ From Monitor] Respiratory 10 L Rate Blood Pressure 164/117 O2 Sat by Pulse 100 Oximetry 05/19/22 05/19/22 05/19/22 07:45 08:00 08:16 Temperature 98.9 F Pulse Rate 99 H 117 H 131 H Pulse Rate [ 132 H From Monitor] Respiratory 14 14 12 Rate Blood Pressure 181/96 160/97 160/97 O2 Sat by Pulse 100 99 100 Oximetry 05/19/22 05/19/22 05/19/22 08:30 08:46 08:55 Temperature Pulse Rate 130 H 110 H Pulse Rate [ From Monitor] Respiratory 15 12 Rate Blood Pressure 160/97 160/97 O2 Sat by Pulse 100 100 100 Oximetry 05/19/22 05/19/22 05/19/22 09:00 09:16 09:30 Temperature Pulse Rate 137 H 129 H 124 H Pulse Rate [ From Monitor] Respiratory 12 19 14 Rate Blood Pressure 178/118 160/97 138/82 O2 Sat by Pulse 100 98 99 Oximetry 05/19/22 05/19/22 05/19/22 09:46 10:00 10:16 Temperature Pulse Rate 124 H 122 H 109 H Pulse Rate [ From Monitor] Respiratory 17 14 17 Rate Blood Pressure 138/82 138/82 167/80 O2 Sat by Pulse 99 97 97 Oximetry 05/19/22 05/19/22 05/19/22 10:30 10:46 11:00 Temperature Pulse Rate 128 H 128 H 109 H Pulse Rate [ From Monitor] Respiratory 13 14 17 Rate Blood Pressure 167/80 167/80 167/80 O2 Sat by Pulse 98 95 95 Oximetry 05/19/22 11:16 Temperature Pulse Rate 122 H Pulse Rate [ From Monitor] Respiratory 11 L Rate Blood Pressure 156/103 O2 Sat by Pulse 96 Oximetry - General Appearance General appearance: appears stated age, intubated EENT: ATNC, PERRL Neck: no JVD, no thyromegaly Respiratory: Present: Clear to Ascultation Cardiology: regular Gastrointestinal: normal Integumentary: warm and dry Neurologic: no focal deficit Musculoskeletal: deferred Psychiatric: cooperative - Lab 05/19/22 03:18 05/19/22 03:18 Most recent lab results ABG pH 7.367 pH Units (7.350-7.450) 05/18/22 06:00 ABG pCO2 44.9 mm Hg 05/18/22 06:00 ABG pO2 158.7 mm Hg (80.0-90.0) H 05/18/22 06:00 ABG HCO3 25.2 mmol/L (20.0-26.0) 05/18/22 06:00 ABG O2 Saturation 98.9 % (95.0-99.0) 05/18/22 06:00 Calcium 8.3 mg/dL (8.4-10.2) L 05/19/22 03:18 - Allied health notes Allied health notes reviewed: nursing Medications & Allergies - Medications Allergies/Adverse Reactions: Allergies No Known Allergies Allergy (Unverified 05/17/22 15:36) Home Medications: Home Medications Medication Instructions Recorded Confirmed Last Taken Type ALPRAZolam 0.5 mg PO BID 05/19/22 05/19/22 Unknown History Clopidogrel [Plavix] 75 mg PO QDAY 05/19/22 05/19/22 Unknown History Losartan [Cozaar] 100 mg PO QDAY 05/19/22 05/19/22 Unknown History NIFEdipine [Nifedipine ER] 60 mg PO BID 05/19/22 05/19/22 Unknown History Oxycodone HCl/Acetaminophen 1 each PO Q8H PRN 05/19/22 05/19/22 Unknown History [Oxycodone-Acetaminophen 10-325] Trelegy Ellipta 100-62.5-25 100 mcg INHALATION DAILY 05/19/22 05/19/22 Unknown History carvediloL [Coreg] 25 mg PO BID 05/19/22 05/19/22 Unknown History dilTIAZem [CarDIZEM] 180 mg PO BID 05/19/22 05/19/22 Unknown History Active Medications: Generic Name Dose Route Start Last Admin Trade Name Freq PRN Reason Stop Dose Admin Acetaminophen 650 mg 05/17/22 14:26 Acetaminophen 325 Mg Tab PO Q4H PRN Pain MILD(1-3)/Fever >100.5/DYER Albumin Human 25 gm 05/18/22 09:10 Albumin Human 25% (25 Gm/100 Ml) Inj IV TOM PRN Hypotension Albuterol 2.5 mg 05/18/22 06:02 Albuterol 2.5 Mg/3 Ml Nebu IH Q3HRT PRN Wheezing Alprazolam 0.25 mg 05/19/22 12:00 05/19/22 11:31 Alprazolam 0.25 Mg Tab PO 05/19/22 16:00 0.25 mg ONCE@1200 DAQUAN Administration Amiodarone HCl 200 mg 05/18/22 10:00 05/19/22 11:16 Amiodarone 200 Mg Tab PO 200 mg BID DAQUAN Administration Dextrose 50 ml 05/18/22 15:00 Dextrose 50% In Water (25gm) 50 Ml Syringe IV Q30MIN PRN Hypoglycemia Protocol Epoetin Jacinto-epbx 10,000 unit 05/18/22 09:10 Epoetin Jacinto-Epbx 10,000 Unit/1 Ml Vial IV TOM PRN hemodialysis Famotidine 20 mg 05/18/22 10:00 05/19/22 09:18 Famotidine 20 Mg/2 Ml Inj IV 20 mg DAILY DAQUAN Administration Heparin Sodium (Porcine) 5,000 unit 05/17/22 22:00 05/19/22 09:18 Heparin 5,000 Unit/1 Ml Vial SUB-Q 5,000 unit Q12HR DAQUAN Administration Dexmedetomidine HCl 400 mcg/ 104 mls @ 3.968 mls/hr 05/17/22 16:00 05/19/22 03:38 Sodium Chloride IV 0 mcg/kg/hr TITRATE DAQUAN 0 mls/hr Titration Protocol 0.2 MCG/KG/HR Sodium Chloride 100 mls @ 999 mls/hr 05/18/22 09:10 Nacl 0.9% IV TOM PRN Hypotension Cefepime HCl 1 gm in 100 mls @ 200 mls/hr 05/19/22 11:00 05/19/22 10:15 Cefepime/Ns 1 Gm/100 Ml IV 200 mls/hr Q24H DAQUAN Administration Protocol Methylprednisolone Sodium Succinate 60 mg 05/18/22 06:00 05/19/22 05:22 Methylprednisolone Sod Succinate 125 Mg/2 Ml Inj IV 60 mg Q8HR DAQUAN Administration Metoclopramide HCl 5 mg 05/18/22 09:00 05/19/22 07:53 Metoclopramide 10 Mg/2 Ml Inj IV 5 mg Q6H PRN Administration Nausea And Vomiting Midazolam HCl 2 mg 05/17/22 19:03 05/19/22 00:05 Midazolam 2 Mg/2 Ml Inj IV 2 mg Q3H PRN Administration Agitation Morphine Sulfate 2 mg 05/17/22 14:26 Morphine 2 Mg/1 Ml Inj IV Q4H PRN Pain, Moderate (4-6) Ondansetron HCl 4 mg 05/17/22 14:26 05/19/22 06:55 Ondansetron 4 Mg/2 Ml Inj IV 4 mg Q3H PRN Administration Nausea And Vomiting Sodium Chloride 10 ml 05/17/22 22:00 05/19/22 09:19 Sodium Chloride 0.9% 10 Ml Flush Syringe IV 10 ml BID DAQUAN Administration Sodium Chloride 10 ml 05/17/22 14:26 Sodium Chloride 0.9% 10 Ml Flush Syringe IV PRN PRN LINE FLUSH
[2022-05-19] MEDS ORDERED: ALPRAZolam 0.25 MG TAB PO SCH (12:00)
--- NOTE | 2022-05-19 12:15 | Progress Note ---
<ARIANA HARDY - Last Filed: 05/19/22 19:09> Assessment and Plan Assessment and plan: This is a 56-year-old male with HTN, cardiomyopathy, ESRD on HD, COPD, former cocaine abuser, SDH with left shift and hemoperitoneum s/p decompressive craniotomy and paracentesis, acute hypoxic respiratory failure s/p tracheostomy with eventual decannulation who was admitted with acute hypoxic respiratory failure requiring ventilatory support Hospital course to date: 05/18: Patient is following commands remains sedated on Precedex. Patient will receive hemodialysis today. Likely will CPAP tomorrow. NG tube placed and started on tube feedings. 05/19: S/p extubation, stable on RA. Patient is s/p fall today, now c/o of Left elbow and pelvic pain. Orders placed for Lt. elbow X-ray and CT head/lumbar spine/pelvic. PRN analgesia orderd for pain control. Patient remains in Afib with RVR HR in the 120-130s, currently on PO amio. Patient's home meds list is available will resume home medications for rate control. Possible Cardiology consult if Afib RVR persists. Will keep patient in the ICU for another 24hrs post extubation, possible transfer to the floor tomorrow if patient remains stable. Assessment and Plan Neuro: Acute Metabolic Encephalopathy-improved h/o SDH with left shift s/p decompressive craniotomy, h/o cocaine abuse -S/p extubation, off sedations -AAO, but with periods of disorientation, very impulsive -RASS goal 0 to -1 -Reorientation as needed -Maintain sleep-wake cycle -As needed analgesia Cardiac: Atrial Fibrilation with RVR, h/o cardiomyopathy, HTN -Patient remains in Afib RVR, HR in the 120s- 130s -On PO Amio -Home meds list available, home meds resumed -Blood pressure monitoring per protocol -Maintain SBP less than 160 -On Heparin SUbQ -Possible Cardiology consult if Afib RVR persist Respiratory: Acute hypoxic respiratory failure, s/p tracheostomy with eventual decannulation, COPD -CCM consulted, appreciate recommendations -Intubated on 05/17 at OSH; 05/19 s/p extubation -A.m. ABG and CXR noted -Now stable on RA -PRN O2 supplementation -SPO2 monitoring for SPO2 goal aboev 92% -Of note patient self decannulated on 05/05 GI: Moderate protein calorie malnutrition -S/p PEG tube placement, however now off -Folec catheter tubing and bag noted in PEG-tube stoma -Patient passed bedside swallow, renal diet ordered -Speech was also consulted -S/p paracentesis at [facility] on 05/06 with removal of 2.7 L : ESRD on HD, hyperkalemia -Nephrology consulted, appreciate recommendations -Continue HD per NEphro -Monitor intake and output -Renally dose medications -Avoid nephrotoxic medications -Trend BMP ID: SIRS vs Sepsis -Leukopenia, CXR showed left-sided effusion with associated opacity and mild ri ght basilar atelectasis -COVID-19 PCR negative, MRSA PCR negative -Antibiotic therapy with cefepime -f/u blood culture -Monitor WBC and temperature curve GI/DVT Prophylaxis -PPI- pepcid -Heparin SubQ -SCDs to bilateral lower extremities while in bed The high probability of a clinically significant, sudden or life threatening deterioration of the [multi] system(s) required my full and direct attention, intervention and personal management. The aggregate critical care time was [60] minutes. This time is in addition to time spent performing reported procedures but includes the following: [x] Data Review and interpretation [x] Patient assessment and monitoring of vital signs [x] Documentation [x] Medication orders and management Disposition Plan: ICU Total Time Spent with Patient (Minutes): 60 History Interval history: Patient seen and examined at the bedside. S/p extubation, stable on RA this am. Patient is AAO, however with periods of disorientation and very impulsive. Patient Fell this am, now c/p of left Elbow and pelvic pain. Patient voiced that he did not hit his head. Afib with RVR HR in the 123 -130s noted in the monitor, VSS. Hospitalist Physical - Constitutional Vitals: Temp Pulse Resp BP Pulse Ox 98.1 F 122 H 11 L 156/103 96 05/19/22 11:51 05/19/22 11:16 05/19/22 11:16 05/19/22 11:16 05/19/22 11:16 General appearance: Present: no acute distress, well-nourished - EENT Eyes: Present: PERRL ENT: hearing intact - Neck Neck: Present: normal ROM - Respiratory Respiratory effort: normal Respiratory: bilateral: diminished - Cardiovascular Rhythm: irregularly irregular Heart Sounds: Present: S1 & S2 - Extremities Extremities: no ischemia, pulses intact, pulses symmetrical Peripheral Pulses: within normal limits - Abdominal General gastrointestinal: soft, non-distended, normal bowel sounds - Integumentary Integumentary: Present: warm, dry - Psychiatric Psychiatric: cooperative, agitated, other (Impulsive) - Neurologic Neurologic: moves all extremities, other (AAO, but with periods of disorientation, very impulsive) - Allied Health Allied health notes reviewed: nursing, case management Results - Labs CBC & Chem 7: 05/19/22 03:18 05/19/22 03:18 Labs: Laboratory Last Values WBC 2.6 K/mm3 (4.5-11.0) L 05/19/22 03:18 RBC 2.94 M/mm3 (3.65-5.03) L 05/19/22 03:18 Hgb 8.5 gm/dl (11.8-15.2) L 05/19/22 03:18 Hct 26.2 % (35.5-45.6) L 05/19/22 03:18 MCV 89 fl (84-94) 05/19/22 03:18 MCH 29 pg (28-32) 05/19/22 03:18 MCHC 33 % (32-34) 05/19/22 03:18 RDW 20.3 % (13.2-15.2) H 05/19/22 03:18 Plt Count 137 K/mm3 (140-440) L 05/19/22 03:18 Lymph % (Auto) 16.2 % (13.4-35.0) 05/18/22 04:20 Colbert % (Auto) 15.1 % (0.0-7.3) H 05/18/22 04:20 Eos % (Auto) 3.1 % (0.0-4.3) 05/18/22 04:20 Baso % (Auto) 1.1 % (0.0-1.8) 05/18/22 04:20 Lymph # (Auto) 0.5 K/mm3 (1.2-5.4) L 05/18/22 04:20 Colbert # (Auto) 0.5 K/mm3 (0.0-0.8) 05/18/22 04:20 Eos # (Auto) 0.1 K/mm3 (0.0-0.4) 05/18/22 04:20 Baso # (Auto) 0.0 K/mm3 (0.0-0.1) 05/18/22 04:20 Seg Neutrophils % 64.5 % (40.0-70.0) 05/18/22 04:20 Seg Neutrophils # 2.0 K/mm3 (1.8-7.7) 05/18/22 04:20 ABG pH 7.367 pH Units (7.350-7.450) 05/18/22 06:00 ABG pCO2 44.9 mm Hg 05/18/22 06:00 ABG pO2 158.7 mm Hg (80.0-90.0) H 05/18/22 06:00 ABG HCO3 25.2 mmol/L (20.0-26.0) 05/18/22 06:00 ABG O2 Saturation 98.9 % (95.0-99.0) 05/18/22 06:00 ABG O2 Content 13.0 (0.0-44) 05/18/22 06:00 ABG Base Excess -0.3 mmol/L (-2.0-3.0) 05/18/22 06:00 ABG Hemoglobin 9.4 gm/dl (14.0-18.0) L 05/18/22 06:00 ABG Carboxyhemoglobin 2.3 % (0.0-5.0) 05/18/22 06:00 ABG Methemoglobin 0.5 % (0.0-1.5) 05/18/22 06:00 Oxyhemoglobin 96.2 % (95.0-99.0) 05/18/22 06:00 FiO2 40 % 05/18/22 06:00 Sodium 139 mmol/L (137-145) D 05/19/22 03:18 Potassium 5.1 mmol/L (3.6-5.0) H D 05/19/22 03:18 Chloride 99.2 mmol/L (98-107) 05/19/22 03:18 Carbon Dioxide 25 mmol/L (22-30) 05/19/22 03:18 Anion Gap 20 mmol/L 05/19/22 03:18 BUN 34 mg/dL (9-20) H 05/19/22 03:18 Creatinine 4.9 mg/dL (0.8-1.3) H 05/19/22 03:18 Estimated GFR 12 ml/min 05/19/22 03:18 BUN/Creatinine Ratio 7 % 05/19/22 03:18 Glucose 130 mg/dL (75-100) H 05/19/22 03:18 POC Glucose 143 mg/dL (70-105) H 05/19/22 05:21 Calcium 8.3 mg/dL (8.4-10.2) L 05/19/22 03:18 Total Bilirubin 0.40 mg/dL (0.1-1.2) 05/17/22 14:28 AST 7 units/L (5-40) 05/17/22 14:28 ALT < 5 units/L (7-56) L 05/17/22 14:28 Alkaline Phosphatase 78 units/L (35-129) 05/17/22 14:28 Total Protein 6.1 g/dL (6.3-8.2) L 05/17/22 14:28 Albumin 2.9 g/dL (3.9-5) L 05/17/22 14:28 Albumin/Globulin Ratio 0.9 % 05/17/22 14:28 Nasal Screen MRSA (PCR) Negative (Negative) 05/18/22 08:30 Coronavirus (PCR) Negative (Negative) 05/18/22 07:57 Hepatitis A IgM Ab Non-reactive (NonReactive) 05/18/22 18:10 Hep Bs Antigen Non-reactive (Negative) 05/18/22 18:10 Hep B Core IgM Ab Non-reactive (NonReactive) 05/18/22 18:10 Hepatitis C Antibody Reactive (NonReactive) A 05/18/22 18:10 Active Medications - Current Medications Current Medications: Generic Name Dose Route Start Last Admin Trade Name Freq PRN Reason Stop Dose Admin Acetaminophen 650 mg 05/17/22 14:26 Acetaminophen 325 Mg Tab PO Q4H PRN Pain MILD(1-3)/Fever >100.5/DYER Albumin Human 25 gm 05/18/22 09:10 Albumin Human 25% (25 Gm/100 Ml) Inj IV TOM PRN Hypotension Albuterol 2.5 mg 05/18/22 06:02 Albuterol 2.5 Mg/3 Ml Nebu IH Q3HRT PRN Wheezing Alprazolam 0.25 mg 05/19/22 12:00 05/19/22 11:31 Alprazolam 0.25 Mg Tab PO 05/19/22 16:00 0.25 mg ONCE@1200 DAQUAN Administration Amiodarone HCl 200 mg 05/18/22 10:00 05/19/22 11:16 Amiodarone 200 Mg Tab PO 200 mg BID DAQUAN Administration Dextrose 50 ml 05/18/22 15:00 Dextrose 50% In Water (25gm) 50 Ml Syringe IV Q30MIN PRN Hypoglycemia Protocol Epoetin Jacinto-epbx 10,000 unit 05/18/22 09:10 Epoetin Jacinto-Epbx 10,000 Unit/1 Ml Vial IV TOM PRN hemodialysis Famotidine 20 mg 05/18/22 10:00 05/19/22 09:18 Famotidine 20 Mg/2 Ml Inj IV 20 mg DAILY DAQUAN Administration Heparin Sodium (Porcine) 5,000 unit 05/17/22 22:00 05/19/22 09:18 Heparin 5,000 Unit/1 Ml Vial SUB-Q 5,000 unit Q12HR DAQUAN Administration Dexmedetomidine HCl 400 mcg/ 104 mls @ 3.968 mls/hr 05/17/22 16:00 05/19/22 03:38 Sodium Chloride IV 0 mcg/kg/hr TITRATE DAQUAN 0 mls/hr Titration Protocol 0.2 MCG/KG/HR Sodium Chloride 100 mls @ 999 mls/hr 05/18/22 09:10 Nacl 0.9% IV TOM PRN Hypotension Cefepime HCl 1 gm in 100 mls @ 200 mls/hr 05/19/22 11:00 05/19/22 10:15 Cefepime/Ns 1 Gm/100 Ml IV 200 mls/hr Q24H DAQUAN Administration Protocol Methylprednisolone Sodium Succinate 60 mg 05/18/22 06:00 05/19/22 05:22 Methylprednisolone Sod Succinate 125 Mg/2 Ml Inj IV 60 mg Q8HR DAQUAN Administration Metoclopramide HCl 5 mg 05/18/22 09:00 05/19/22 07:53 Metoclopramide 10 Mg/2 Ml Inj IV 5 mg Q6H PRN Administration Nausea And Vomiting Midazolam HCl 2 mg 05/17/22 19:03 05/19/22 00:05 Midazolam 2 Mg/2 Ml Inj IV 2 mg Q3H PRN Administration Agitation Morphine Sulfate 2 mg 05/17/22 14:26 Morphine 2 Mg/1 Ml Inj IV Q4H PRN Pain, Moderate (4-6) Ondansetron HCl 4 mg 05/17/22 14:26 05/19/22 06:55 Ondansetron 4 Mg/2 Ml Inj IV 4 mg Q3H PRN Administration Nausea And Vomiting Sodium Chloride 10 ml 05/17/22 22:00 05/19/22 09:19 Sodium Chloride 0.9% 10 Ml Flush Syringe IV 10 ml BID DAQUAN Administration Sodium Chloride 10 ml 05/17/22 14:26 Sodium Chloride 0.9% 10 Ml Flush Syringe IV PRN PRN LINE FLUSH Nutrition/Malnutrition Assess - Dietary Evaluation Nutrition/Malnutrition Findings: Nutrition Notes Start: 05/18/22 14:16 Freq: Status: Active Protocol: Document 05/18/22 14:16 [facility] (Rec: 05/18/22 14:22 [facility] [id number]) Nutrition Notes Need for Assessment generated from: MD Order,maintenance porter Initial or Follow up Assessment Current Diagnosis CKD (stage V CKD),COPD, Hypertension,Respiratory Failure Current Diet No diet ordered Labs/Tests Na 128 K 6.8 BUN 48 Cr 6.8 Pertinent Medications Solumedrol Height 6 ft 4 in Weight 76.3 kg [place] Body Weight (kg) 91.81 BMI 20.5 Weight Status Appropriate Subjective/Other Information RD consulted for TF; pt also screened for skin risk (Juanito score: 15) and hx of receiving NTR support. Pt intubated and has a hx of intubation and PEG tube placement. Burn Absent Trauma Absent Skin Integrity/Comment Pt with (R) hand wound Minimum of two criteria No #1 Nutrition Diagnosis Swallowing difficulty Etiology [facility] ventilation As Evidenced by Signs and Symptoms pt NPO Is patient on ventilator? Yes Is Patient Ambulatory and/or Out of Bed No REE-([facility]-confined to bed) 1134.348 Calculation Used for Recommendations [facility] Additional Notes Pro needs >1.2g/kg: >92g/day Fluid needs 1-1.5L/day Nutrition Intervention Nutrition Support: Nepro at 45ml/hr with 120ml water flush q4h. Kcal 1,944 Protein (gm) 87 Carbohydrates (gm) 174 Fat (gm) 104 Fluid (mL) 785 Fiber (gm) 14 Goal #1 TF tolerance Goal #2 TF to meet at least 75% energy and pro needs Anticipated Discharge Needs: Continue EN support if necessary Follow-Up By: 05/20/22 Additional Comments F/U: new TF, vent status <SARAH AVITIA E - Last Filed: 05/20/22 07:29> Assessment and Plan Assessment and plan: The patient was seen and examined with the [employer]ENCE TECHNICIAN/PA.Vitals, labs, medications, chart and imaging were reviewed.Agree with [employer] SC[employer] EVIDENCE TECHNICIAN's assessment and plan as documented.Discussed care plan and directed management. I did discuss with the patient and spouse patient did fall from bed following extubation. Imaging studies have been requested and pending. Preliminary consult orthopedics for evaluation of the elbow and possible pelvis. Hospitalist Physical - Constitutional Vitals: Temp Pulse Resp BP Pulse Ox 97.8 F 131 H 16 149/113 97 05/20/22 04:32 05/20/22 07:16 05/20/22 07:16 05/20/22 07:16 05/20/22 07:16 Results - Labs CBC & Chem 7: 05/20/22 04:31 05/20/22 04:31 Labs: Laboratory Last Values WBC 6.2 K/mm3 (4.5-11.0) 05/20/22 04:31 RBC 2.72 M/mm3 (3.65-5.03) L 05/20/22 04:31 Hgb 7.8 gm/dl (11.8-15.2) L 05/20/22 04:31 Hct 24.1 % (35.5-45.6) L 05/20/22 04:31 MCV 89 fl (84-94) 05/20/22 04:31 MCH 29 pg (28-32) 05/20/22 04:31 MCHC 32 % (32-34) 05/20/22 04:31 RDW 20.9 % (13.2-15.2) H 05/20/22 04:31 Plt Count 172 K/mm3 (140-440) 05/20/22 04:31 Lymph % (Auto) 16.2 % (13.4-35.0) 05/18/22 04:20 Colbert % (Auto) 15.1 % (0.0-7.3) H 05/18/22 04:20 Eos % (Auto) 3.1 % (0.0-4.3) 05/18/22 04:20 Baso % (Auto) 1.1 % (0.0-1.8) 05/18/22 04:20 Lymph # (Auto) 0.5 K/mm3 (1.2-5.4) L 05/18/22 04:20 Colbert # (Auto) 0.5 K/mm3 (0.0-0.8) 05/18/22 04:20 Eos # (Auto) 0.1 K/mm3 (0.0-0.4) 05/18/22 04:20 Baso # (Auto) 0.0 K/mm3 (0.0-0.1) 05/18/22 04:20 Seg Neutrophils % 64.5 % (40.0-70.0) 05/18/22 04:20 Seg Neutrophils # 2.0 K/mm3 (1.8-7.7) 05/18/22 04:20 ABG pH 7.367 pH Units (7.350-7.450) 05/18/22 06:00 ABG pCO2 44.9 mm Hg 05/18/22 06:00 ABG pO2 158.7 mm Hg (80.0-90.0) H 05/18/22 06:00 ABG HCO3 25.2 mmol/L (20.0-26.0) 05/18/22 06:00 ABG O2 Saturation 98.9 % (95.0-99.0) 05/18/22 06:00 ABG O2 Content 13.0 (0.0-44) 05/18/22 06:00 ABG Base Excess -0.3 mmol/L (-2.0-3.0) 05/18/22 06:00 ABG Hemoglobin 9.4 gm/dl (14.0-18.0) L 05/18/22 06:00 ABG Carboxyhemoglobin 2.3 % (0.0-5.0) 05/18/22 06:00 ABG Methemoglobin 0.5 % (0.0-1.5) 05/18/22 06:00 Oxyhemoglobin 96.2 % (95.0-99.0) 05/18/22 06:00 FiO2 40 % 05/18/22 06:00 Sodium 137 mmol/L (137-145) 05/20/22 04:31 Potassium 5.4 mmol/L (3.6-5.0) H 05/20/22 04:31 Chloride 96.5 mmol/L (98-107) L 05/20/22 04:31 Carbon Dioxide 22 mmol/L (22-30) 05/20/22 04:31 Anion Gap 24 mmol/L 05/20/22 04:31 BUN 53 mg/dL (9-20) H 05/20/22 04:31 Creatinine 6.7 mg/dL (0.8-1.3) H 05/20/22 04:31 Estimated GFR 9 ml/min 05/20/22 04:31 BUN/Creatinine Ratio 8 % 05/20/22 04:31 Glucose 115 mg/dL (75-100) H 05/20/22 04:31 POC Glucose 142 mg/dL (70-105) H 05/20/22 00:01 Calcium 8.1 mg/dL (8.4-10.2) L 05/20/22 04:31 Phosphorus 7.90 mg/dL (2.5-4.5) H 05/20/22 04:31 Magnesium 2.00 mg/dL (1.7-2.3) 05/20/22 04:31 Total Bilirubin 0.40 mg/dL (0.1-1.2) 05/17/22 14:28 AST 7 units/L (5-40) 05/17/22 14:28 ALT < 5 units/L (7-56) L 05/17/22 14:28 Alkaline Phosphatase 78 units/L (35-129) 05/17/22 14:28 Total Protein 6.1 g/dL (6.3-8.2) L 05/17/22 14:28 Albumin 2.9 g/dL (3.9-5) L 05/17/22 14:28 Albumin/Globulin Ratio 0.9 % 05/17/22 14:28 Nasal Screen MRSA (PCR) Negative (Negative) 05/18/22 08:30 Coronavirus (PCR) Negative (Negative) 05/18/22 07:57 Hepatitis A IgM Ab Non-reactive (NonReactive) 05/18/22 18:10 Hep Bs Antigen Non-reactive (Negative) 05/18/22 18:10 Hep B Core IgM Ab Non-reactive (NonReactive) 05/18/22 18:10 Hepatitis C Antibody Reactive (NonReactive) A 05/18/22 18:10 Active Medications - Current Medications Current Medications: Generic Name Dose Route Start Last Admin Trade Name Freq PRN Reason Stop Dose Admin Acetaminophen 650 mg 05/17/22 14:26 Acetaminophen 325 Mg Tab PO Q4H PRN Pain MILD(1-3)/Fever >100.5/DYER Albumin Human 25 gm 05/18/22 09:10 Albumin Human 25% (25 Gm/100 Ml) Inj IV TOM PRN Hypotension Albuterol 2.5 mg 05/18/22 06:02 Albuterol 2.5 Mg/3 Ml Nebu IH Q3HRT PRN Wheezing Dextrose 50 ml 05/18/22 15:00 Dextrose 50% In Water (25gm) 50 Ml Syringe IV Q30MIN PRN Hypoglycemia Protocol Epoetin Jacinto-epbx 10,000 unit 05/18/22 09:10 Epoetin Jacinto-Epbx 10,000 Unit/1 Ml Vial IV TOM PRN hemodialysis Famotidine 20 mg 05/18/22 10:00 05/19/22 09:18 Famotidine 20 Mg/2 Ml Inj IV 20 mg DAILY DAQUAN Administration Heparin Sodium (Porcine) 5,000 unit 05/17/22 22:00 05/19/22 21:34 Heparin 5,000 Unit/1 Ml Vial SUB-Q 5,000 unit Q12HR DAQUAN Administration Dexmedetomidine HCl 400 mcg/ 104 mls @ 3.968 mls/hr 05/17/22 16:00 05/20/22 04:38 Sodium Chloride IV 0.4 mcg/kg/hr TITRATE DAQUAN 7.935 mls/hr Titration Protocol 0.2 MCG/KG/HR Sodium Chloride 100 mls @ 999 mls/hr 05/18/22 09:10 Nacl 0.9% IV TOM PRN Hypotension Cefepime HCl 1 gm in 100 mls @ 200 mls/hr 05/19/22 11:00 05/19/22 10:15 Cefepime/Ns 1 Gm/100 Ml IV 200 mls/hr Q24H DAQUAN Administration Protocol Losartan Potassium 100 mg 05/20/22 10:00 Losartan 50 Mg Tab PO QDAY DAQUAN Methylprednisolone Sodium Succinate 60 mg 05/18/22 06:00 05/20/22 05:07 Methylprednisolone Sod Succinate 125 Mg/2 Ml Inj IV 60 mg Q8HR DAQUAN Administration Metoclopramide HCl 5 mg 05/18/22 09:00 05/19/22 07:53 Metoclopramide 10 Mg/2 Ml Inj IV 5 mg Q6H PRN Administration Nausea And Vomiting Metoprolol Tartrate 100 mg 05/19/22 17:00 05/19/22 16:35 Metoprolol Tartrate 100 Mg Tab PO 100 mg BID DAQUAN Administration Metoprolol Tartrate 2.5 mg 05/19/22 20:00 05/20/22 00:29 Metoprolol Tartrate 5 Mg/5 Ml Inj IV 2.5 mg Q6HR PRN Administration tachycardia Morphine Sulfate 2 mg 05/17/22 14:26 05/20/22 01:26 Morphine 2 Mg/1 Ml Inj IV 2 mg Q4H PRN Administration Pain, Moderate (4-6) Ondansetron HCl 4 mg 05/17/22 14:26 05/19/22 22:46 Ondansetron 4 Mg/2 Ml Inj IV 4 mg Q3H PRN Administration Nausea And Vomiting Oxycodone/Acetaminophen 1 tab 05/19/22 19:25 05/19/22 19:35 Oxycodone /Acetaminophen 5-325mg Tab PO 1 tab Q8H PRN Administration Pain, Moderate (4-6) Quetiapine Fumarate 50 mg 05/19/22 22:00 05/19/22 21:34 Quetiapine 25 Mg Tab PO 50 mg QHS DAQUAN Administration Sodium Chloride 10 ml 05/17/22 22:00 05/19/22 21:34 Sodium Chloride 0.9% 10 Ml Flush Syringe IV 10 ml BID DAQUAN Administration Sodium Chloride 10 ml 05/17/22 14:26 Sodium Chloride 0.9% 10 Ml Flush Syringe IV PRN PRN LINE FLUSH Nutrition/Malnutrition Assess - Dietary Evaluation Nutrition/Malnutrition Findings: Nutrition Notes Start: 05/18/22 14:16 Freq: Status: Active Protocol: Document 05/18/22 14:16 ASHLYN (Rec: 05/18/22 14:22 ASHLYN [id number]) Nutrition Notes Need for Assessment generated from: MD Order,maintenance porter Initial or Follow up Assessment Current Diagnosis CKD (stage V CKD),COPD, Hypertension,Respiratory Failure Current Diet No diet ordered Labs/Tests Na 128 K 6.8 BUN 48 Cr 6.8 Pertinent Medications Solumedrol Height 6 ft 4 in Weight 76.3 kg [place] Body Weight (kg) 91.81 BMI 20.5 Weight Status Appropriate Subjective/Other Information RD consulted for TF; pt also screened for skin risk (Juanito score: 15) and hx of receiving NTR support. Pt intubated and has a hx of intubation and PEG tube placement. Burn Absent Trauma Absent Skin Integrity/Comment Pt with (R) hand wound Minimum of two criteria No #1 Nutrition Diagnosis Swallowing difficulty [facility] As Evidenced by Signs and Symptoms pt NPO Is patient on ventilator? Yes Is Patient Ambulatory and/or Out of Bed No REE-([facility]-confined to bed) 2048. Calculation Used for Recommendations [facility] Additional Notes Pro needs >1.2g/kg: >92g/day Fluid needs 1-1.5L/day Nutrition Intervention Nutrition Support: Nepro at 45ml/hr with 120ml water flush q4h. Kcal 1,944 Protein (gm) 87 Carbohydrates (gm) 174 Fat (gm) 104 Fluid (mL) 785 Fiber (gm) 14 Goal #1 TF tolerance Goal #2 TF to meet at least 75% energy and pro needs Anticipated Discharge Needs: Continue EN support if necessary Follow-Up By: 05/20/22 Additional Comments F/U: new TF, vent status
[2022-05-19] MEDS: MORPHINE 2 MG/1 ML INJ IV PRN ×3 (13:27→21:35)
--- NOTE | 2022-05-19 13:58 | XRay Report ---
LEFT ELBOW 2 VIEWS INDICATION: Pt fell and hit left elbow on cabinet. COMPARISON: None. IMPRESSION: No joint pathology is detected. An approximate 7 mm enthesophytes is noted at the insert ion of the triceps tendon. There is enthesophytes appears to be fractured near its base with overlyin g soft tissue swelling. The remaining bony structures are intact. There are multiple surgical clips a nd vascular graft in the anterior soft tissues. Signer Name: Isma Martinez Jr, MD Signed: 05/19/2022 1:54 PM Workstation Name: [id number]
--- NOTE | 2022-05-19 16:28 | Cat Scan Report ---
. CT LUMBAR SPINE WITHOUT CONTRAST INDICATION: s/p Fall. TECHNIQUE: Axial CT images of the spine were obtained. Sagittal and coronal reformatted images were produced. Al l CT scans at this location are performed using CT dose reduction for ALARA by means of automated exp osure control. COMPARISON: None available. FINDINGS: ACUTE FRACTURE(S) OR SUBLUXATION: None. SPINAL DEGENERATIVE CHANGES: There is mild generalized spondylosis, greatest at L4-5 and L5-S1. There is partial lumbarization of S1 on a developmental basis. PARASPINAL SOFT TISSUES: No soft tissue swelling or other acute abnormalities. ADDITIONAL FINDINGS: No significant additional findings. IMPRESSION: 1. No acute fracture or subluxation in the spine in neutral position. Mild degenerative findings as d escribed. Signer Name: Jeancarlos Barillas MD Signed: 05/19/2022 4:24 PM Workstation Name: [id number]
[2022-05-19] MEDS: METOPROLOL TARTRATE 100 MG TAB PO SCH (16:35)
--- NOTE | 2022-05-19 16:35 | Cat Scan Report ---
CT head/brain wo con INDICATION: s/p Fall. TECHNIQUE: All CT scans at this location are performed using CT dose reduction for ALARA by means of automated e xposure control. COMPARISON: None available. FINDINGS: There are postsurgical changes from left-sided craniotomy with small amount of residual dural thicken ing versus extra-axial fluid over the left cerebral convexity without adverse mass effect. There is n o acute hemorrhage. There is chronic encephalomalacia in the anterior left frontal lobe. The included paranasal sinuses and mastoid air cells are clear. The orbits appear unremarkable. IMPRESSION: 1. No definite acute findings. 2. Post surgical changes from left sided craniotomy with small amount of extra-axial dural thickening /extra-axial fluid over the left cerebral convexity without adverse mass effect. No acute hemorrhage. Signer Name: Jeancarlos Barillas MD Signed: 05/19/2022 4:31 PM Workstation Name: [id number]
--- NOTE | 2022-05-19 16:43 | Cat Scan Report ---
CT PELVIS WITHOUT CONTRAST INDICATION / CLINICAL INFORMATION: s/p Fall. Pelvic pain. TECHNIQUE: Axial CT images were obtained through the pelvis without contrast. All CT scans at this [facility] are performed using CT dose reduction for ALARA by means of automated exposure control. COMPARISON: None available. FINDINGS: BONES: Mildly displaced fractures of the right superior and inferior pubic ramus. Virtually nondispla gino buckle fracture of the right sacral ala. No osseous lesion. Subjective osteopenia especially for age and sex. HIP JOINTS: No significant abnormality. SACROILIAC JOINTS: No significant abnormality. SOFT TISSUES: Moderate size soft tissue hematoma adjacent to the right superior pubic ramus fracture. Hematoma measures 6 x 3.4 cm with rightward displacement of the urinary bladder. Small to moderate a mount of free fluid in the lower abdomen and pelvis. Constipation of the vas deferens most commonly s een in the setting of diabetes. LOWER LUMBAR SPINE: No significant abnormality. SOFT TISSUES WITHIN PELVIS: No acute findings. ADDITIONAL FINDINGS: None. IMPRESSION: 1. Mildly displaced fractures of the right superior and inferior pubic rami with soft tissue hematoma adjacent to the superior pubic ramus fracture. 2. Virtually nondisplaced buckle fracture of the right sacral ala. 3. Subjective osteopenia possibly related to chronic renal disease such as renal osteodystrophy. Signer Name: Lu Salinas MD Signed: 05/19/2022 4:39 PM Workstation Name: [id number]
[2022-05-19] MEDS ORDERED: KETOROLAC 30 MG/1 ML INJ IV SCH (17:00)
[2022-05-19] MEDS ORDERED: NON-FORMULARY EACH (Oxycodone Hcl/Acetaminophen [Oxycodone-Acetaminophen 10-325] 1 EACH Ta PO PRN (18:52)
[2022-05-19] MEDS: oxyCODONE /ACETAMINOPHEN 5-325MG TAB PO PRN (19:35)
[2022-05-19] MEDS: QUEtiapine 25 MG TAB PO SCH (21:34)
[2022-05-20] MEDS: METOPROLOL TARTRATE 5 MG/5 ML INJ IV PRN ×3 (00:29→14:43)
[2022-05-20] MEDS: MORPHINE 2 MG/1 ML INJ IV PRN (01:26)
[2022-05-20] MEDS: methylPREDNISolone Sod Succinate 125 MG/2 ML INJ IV SCH (05:07)
[2022-05-20 05:10] LABS: Hematocrit 24.1 % (35.5-45.6); Hemoglobin 7.8 gm/dl (11.8-15.2); Mean Corpuscular HGB Conc 32 % (32-34); Mean Corpuscular Volume 89 fl (84-94); Platelet Count 172 K/mm3 (140-440); Red Blood Count 2.72 M/mm3 (3.65-5.03)
[2022-05-20 05:12] LABS: Red Cell Distribution Width 20.9 % (13.2-15.2)
[2022-05-20 05:24] LABS: Calcium 8.1 mg/dL (8.4-10.2)
[2022-05-20] MEDS: oxyCODONE /ACETAMINOPHEN 5-325MG TAB PO PRN ×2 (07:54→20:10)
[2022-05-20] MEDS: ONDANSETRON 4 MG/2 ML INJ IV PRN (07:55)
[2022-05-20] MEDS: LOSARTAN 50 MG TAB PO SCH (09:31)
[2022-05-20] MEDS: NIFEdipine XL 60 MG TAB PO SCH ×2 (09:31→21:01)
[2022-05-20] MEDS: ALPRAZolam 0.5 MG TAB PO PRN ×2 (09:32→14:43)
[2022-05-20] MEDS: METOPROLOL TARTRATE 100 MG TAB PO SCH ×2 (09:32→21:01)
[2022-05-20] MEDS: HEPARIN 5,000 UNIT/1 ML VIAL SUB-Q SCH ×2 (09:33→21:02)
[2022-05-20] MEDS: FAMOTIDINE 20 MG TAB PO SCH (09:33)
[2022-05-20] MEDS ORDERED: NON-FORMULARY EACH (Losartan [Cozaar] 100 MG Tablet) PO SCH (10:00)
[2022-05-20] MEDS: CEFEPIME/NS 1 GM/100 ML 1 GM/100 ML BAG IV SCH (10:46)
--- NOTE | 2022-05-20 11:35 | Progress Note ---
<ARIANA HARDY - Last Filed: 05/20/22 17:58> Assessment and Plan Assessment and plan: This is a 56-year-old male with HTN, cardiomyopathy, ESRD on HD, COPD, former cocaine abuser, SDH with left shift and hemoperitoneum s/p decompressive craniotomy and paracentesis, acute hypoxic respiratory failure s/p tracheostomy with eventual decannulation who was admitted with acute hypoxic respiratory failure requiring ventilatory support. Hospital course to date: 05/18: Patient is following commands remains sedated on Precedex. Patient will receive hemodialysis today. Likely will CPAP tomorrow. NG tube placed and started on tube feedings. 05/19: S/p extubation, stable on RA. Patient is s/p fall today, now c/o of Left elbow and pelvic pain. Orders placed for Lt. elbow X-ray and CT head/lumbar spine/pelvic. PRN analgesia orderd for pain control. Patient remains in Afib with RVR HR in the 120-130s, currently on PO amio. Patient's home meds list is available will resume home medications for rate control. Possible Cardiology consult if Afib RVR persists. Will keep patient in the ICU for another 24hrs post extubation, possible transfer to the floor tomorrow if patient remains stable. 05/20: Increase anxiety and agitation overnight, back on low dose precedex gtt. Lt. elbow X-ray and CT scans reviewed, fractures enthesophytes, superior and inferior pubic rami with soft tissue hematoma reported. H&H is stable, no s/s of any active bleeding. Ortho consulted for further eval and treat. Continue to trend CBC and PRN analgesia for pain control. Patient remains in Afib with RVR, on BB, BP stable. Given patient's current Afib with RVR, will continue VTE proph for now, awaiting Cardio and Ortho recommendations. Cardiology also consulted. Patient's home seroquel and antianxiety regime resumed. Wean off precedex gtt for RASS goal of 0 to -1. Plan for HD today per Nephro. PT/OT ordered. Assessment and Plan Neuro: Acute Metabolic Encephalopathy-improved h/o SDH with left shift s/p decompressive craniotomy, h/o cocaine abuse S/p Fall -S/p extubation, off sedations -AAO, but with periods of disorientation, very impulsive -Back on precedex overnight due to increase anxiety/agitation -home meds seroquel and xanax resumed -Wean precededx gtt for RASS goal 0 to -1 -Reorientation as needed -Maintain sleep-wake cycle -As needed analgesia -Fall precaution -PT/OT consulted Cardiac: Atrial Fibrilation with RVR, h/o cardiomyopathy, HTN -Patient remains in Afib RVR, HR in the 120s- 130s -On BB -Blood pressure monitoring per protocol -Maintain SBP less than 160 -On Heparin SubQ -Cardiology consulted Respiratory: Acute hypoxic respiratory failure, s/p tracheostomy with eventual decannulation, COPD -CCM consulted, appreciate recommendations -Intubated on 05/17 at OSH; 05/19 s/p extubation -A.m. ABG and CXR noted -Now stable on RA -PRN O2 supplementation -SPO2 monitoring for SPO2 goal aboev 92% -Of note patient self decannulated on 05/05 Superior and Inferior Pubic Rami fractures Left Enthesophytes Fracture S/p Fall -Noted from Lt. Elbow X-ray and CT scan, see report for details -Ortho consulted for further eval and treat -Given current Afib with RVR, will continue VTE proph for now, awaiting Cardio and Ortho recommendations. -PT/OT consulted -Fall precaution -PRN Analgesia for pain control GI: Moderate protein calorie malnutrition -S/p PEG tube placement, however now off -Patient removed Richter catheter that was in the PEG-tube stoma, dressing present -Patient passed bedside swallow, renal diet ordered -Speech also following -S/p paracentesis at [facility] on 05/06 with removal of 2.7 L : ESRD on HD, hyperkalemia -Nephrology consulted, appreciate recommendations -Continue HD per Nephro -Monitor intake and output -Renally dose medications -Avoid nephrotoxic medications -Trend BMP ID: SIRS vs Sepsis -Leukopenia, CXR showed left-sided effusion with associated opacity and mild right basilar atelectasis -COVID-19 PCR negative, MRSA PCR negative -Antibiotic therapy with cefepime -f/u blood culture -Monitor WBC and temperature curve GI/DVT Prophylaxis -PPI- pepcid -Heparin SubQ -SCDs to bilateral lower extremities while in bed The high probability of a clinically significant, sudden or life threatening deterioration of the [multi] system(s) required my full and direct attention, intervention and personal management. The aggregate critical care time was [60] minutes. This time is in addition to time spent performing reported procedures but includes the following: [x] Data Review and interpretation [x] Patient assessment and monitoring of vital signs [x] Documentation [x] Medication orders and management Disposition Plan: ICU Total Time Spent with Patient (Minutes): 60 History Interval history: Patient seen and examined at the bedside. AAO and calm this am, now on low precedex gtt due to increase anxiety and agitation overnight. Still complaining of left elbow and pelvic pain, PRN analgesia administered. Patient remains in AFib with RVR on the monitor, BP stable. Hospitalist Physical - Physical exam Narrative exam: General appearance: Present: no acute distress, well-nourished - EENT Eyes: Present: PERRL ENT: hearing intact - Neck Neck: Present: normal ROM - Respiratory Respiratory effort: normal Respiratory: bilateral: diminished - Cardiovascular Rhythm: irregularly irregular Heart Sounds: Present: S1 & S2 - Extremities Extremities: no ischemia, pulses intact, pulses symmetrical Peripheral Pulses: within normal limits - Abdominal General gastrointestinal: soft, non-distended, normal bowel sounds - Integumentary Integumentary: Present: warm, dry - Psychiatric Psychiatric: Calm and appropriate, cooperative, other (Impulsive at time) - Neurologic Neurologic: moves all extremities, other (AAO, but with periods of disorientation and impulsiveness) - Allied Health Allied health notes reviewed: nursing, case management - Constitutional Vitals: Temp Pulse Resp BP Pulse Ox 97.8 F 113 H 17 150/119 100 05/20/22 08:00 05/20/22 11:00 05/20/22 11:00 05/20/22 11:00 05/20/22 11:00 Results - Labs CBC & Chem 7: 05/20/22 04:31 05/20/22 04:31 Labs: Laboratory Last Values WBC 6.2 K/mm3 (4.5-11.0) 05/20/22 04:31 RBC 2.72 M/mm3 (3.65-5.03) L 05/20/22 04:31 Hgb 7.8 gm/dl (11.8-15.2) L 05/20/22 04:31 Hct 24.1 % (35.5-45.6) L 05/20/22 04:31 MCV 89 fl (84-94) 05/20/22 04:31 MCH 29 pg (28-32) 05/20/22 04:31 MCHC 32 % (32-34) 05/20/22 04:31 RDW 20.9 % (13.2-15.2) H 05/20/22 04:31 Plt Count 172 K/mm3 (140-440) 05/20/22 04:31 Lymph % (Auto) 16.2 % (13.4-35.0) 05/18/22 04:20 [place] % (Auto) 15.1 % (0.0-7.3) H 05/18/22 04:20 Eos % (Auto) 3.1 % (0.0-4.3) 05/18/22 04:20 Baso % (Auto) 1.1 % (0.0-1.8) 05/18/22 04:20 Lymph # (Auto) 0.5 K/mm3 (1.2-5.4) L 05/18/22 04:20 [place] # (Auto) 0.5 K/mm3 (0.0-0.8) 05/18/22 04:20 Eos # (Auto) 0.1 K/mm3 (0.0-0.4) 05/18/22 04:20 Baso # (Auto) 0.0 K/mm3 (0.0-0.1) 05/18/22 04:20 Seg Neutrophils % 64.5 % (40.0-70.0) 05/18/22 04:20 Seg Neutrophils # 2.0 K/mm3 (1.8-7.7) 05/18/22 04:20 ABG pH 7.367 pH Units (7.350-7.450) 05/18/22 06:00 ABG pCO2 44.9 mm Hg 05/18/22 06:00 ABG pO2 158.7 mm Hg (80.0-90.0) H 05/18/22 06:00 ABG HCO3 25.2 mmol/L (20.0-26.0) 05/18/22 06:00 ABG O2 Saturation 98.9 % (95.0-99.0) 05/18/22 06:00 ABG O2 Content 13.0 (0.0-44) 05/18/22 06:00 ABG Base Excess -0.3 mmol/L (-2.0-3.0) 05/18/22 06:00 ABG Hemoglobin 9.4 gm/dl (14.0-18.0) L 05/18/22 06:00 ABG Carboxyhemoglobin 2.3 % (0.0-5.0) 05/18/22 06:00 ABG Methemoglobin 0.5 % (0.0-1.5) 05/18/22 06:00 Oxyhemoglobin 96.2 % (95.0-99.0) 05/18/22 06:00 FiO2 40 % 05/18/22 06:00 Sodium 137 mmol/L (137-145) 05/20/22 04:31 Potassium 5.4 mmol/L (3.6-5.0) H 05/20/22 04:31 Chloride 96.5 mmol/L (98-107) L 05/20/22 04:31 Carbon Dioxide 22 mmol/L (22-30) 05/20/22 04:31 Anion Gap 24 mmol/L 05/20/22 04:31 BUN 53 mg/dL (9-20) H 05/20/22 04:31 Creatinine 6.7 mg/dL (0.8-1.3) H 05/20/22 04:31 Estimated GFR 9 ml/min 05/20/22 04:31 BUN/Creatinine Ratio 8 % 05/20/22 04:31 Glucose 115 mg/dL (75-100) H 05/20/22 04:31 POC Glucose 142 mg/dL (70-105) H 05/20/22 00:01 Calcium 8.1 mg/dL (8.4-10.2) L 05/20/22 04:31 Phosphorus 7.90 mg/dL (2.5-4.5) H 05/20/22 04:31 Magnesium 2.00 mg/dL (1.7-2.3) 05/20/22 04:31 Total Bilirubin 0.40 mg/dL (0.1-1.2) 05/17/22 14:28 AST 7 units/L (5-40) 05/17/22 14:28 ALT < 5 units/L (7-56) L 05/17/22 14:28 Alkaline Phosphatase 78 units/L (35-129) 05/17/22 14:28 Total Protein 6.1 g/dL (6.3-8.2) L 05/17/22 14:28 Albumin 2.9 g/dL (3.9-5) L 05/17/22 14:28 Albumin/Globulin Ratio 0.9 % 05/17/22 14:28 Nasal Screen MRSA (PCR) Negative (Negative) 05/18/22 08:30 Coronavirus (PCR) Negative (Negative) 05/18/22 07:57 Hepatitis A IgM Ab Non-reactive (NonReactive) 05/18/22 18:10 Hep Bs Antigen Non-reactive (Negative) 05/18/22 18:10 Hep B Core IgM Ab Non-reactive (NonReactive) 05/18/22 18:10 Hepatitis C Antibody Reactive (NonReactive) A 05/18/22 18:10 Active Medications - Current Medications Current Medications: Generic Name Dose Route Start Last Admin Trade Name Freq PRN Reason Stop Dose Admin Acetaminophen 650 mg 05/17/22 14:26 Acetaminophen 325 Mg Tab PO Q4H PRN Pain MILD(1-3)/Fever >100.5/DYER Albumin Human 25 gm 05/18/22 09:10 Albumin Human 25% (25 Gm/100 Ml) Inj IV TOM PRN Hypotension Albuterol 2.5 mg 05/18/22 06:02 Albuterol 2.5 Mg/3 Ml Nebu IH Q3HRT PRN Wheezing Alprazolam 0.5 mg 05/20/22 08:34 05/20/22 09:32 Alprazolam 0.5 Mg Tab PO 0.5 mg BID PRN Administration Anxiety Dextrose 50 ml 05/18/22 15:00 Dextrose 50% In Water (25gm) 50 Ml Syringe IV Q30MIN PRN Hypoglycemia Protocol Epoetin Jacinto-epbx 10,000 unit 05/18/22 09:10 Epoetin Jacinto-Epbx 10,000 Unit/1 Ml Vial IV TOM PRN hemodialysis Famotidine 20 mg 05/20/22 10:00 05/20/22 09:33 Famotidine 20 Mg Tab PO 20 mg QDAY DAQUAN Administration Heparin Sodium (Porcine) 5,000 unit 05/17/22 22:00 05/20/22 09:33 Heparin 5,000 Unit/1 Ml Vial SUB-Q Not Given Q12HR DAQUAN Dexmedetomidine HCl 400 mcg/ 104 mls @ 3.968 mls/hr 05/17/22 16:00 05/20/22 11:31 Sodium Chloride IV 0.2 mcg/kg/hr TITRATE DAQUAN 3.968 mls/hr Administration Protocol 0.2 MCG/KG/HR Sodium Chloride 100 mls @ 999 mls/hr 05/18/22 09:10 Nacl 0.9% IV TOM PRN Hypotension Cefepime HCl 1 gm in 100 mls @ 200 mls/hr 05/19/22 11:00 05/20/22 10:46 Cefepime/Ns 1 Gm/100 Ml IV 200 mls/hr Q24H DAQUAN Administration Protocol Losartan Potassium 100 mg 05/20/22 10:00 05/20/22 09:31 Losartan 50 Mg Tab PO 100 mg QDAY DAQUAN Administration Metoclopramide HCl 5 mg 05/18/22 09:00 05/19/22 07:53 Metoclopramide 10 Mg/2 Ml Inj IV 5 mg Q6H PRN Administration Nausea And Vomiting Metoprolol Tartrate 100 mg 05/19/22 17:00 05/20/22 09:32 Metoprolol Tartrate 100 Mg Tab PO 100 mg BID DAQUAN Administration Metoprolol Tartrate 2.5 mg 05/19/22 20:00 05/20/22 07:55 Metoprolol Tartrate 5 Mg/5 Ml Inj IV 2.5 mg Q6HR PRN Administration tachycardia Morphine Sulfate 2 mg 05/17/22 14:26 05/20/22 01:26 Morphine 2 Mg/1 Ml Inj IV 2 mg Q4H PRN Administration Pain, Moderate (4-6) Nifedipine 60 mg 05/20/22 10:00 05/20/22 09:31 Nifedipine Xl 60 Mg Tab PO 60 mg BID DAQUAN Administration Ondansetron HCl 4 mg 05/17/22 14:26 05/20/22 07:55 Ondansetron 4 Mg/2 Ml Inj IV 4 mg Q3H PRN Administration Nausea And Vomiting Oxycodone/Acetaminophen 1 tab 05/19/22 19:25 05/20/22 07:54 Oxycodone /Acetaminophen 5-325mg Tab PO 1 tab Q8H PRN Administration Pain, Moderate (4-6) Quetiapine Fumarate 50 mg 05/19/22 22:00 05/19/22 21:34 Quetiapine 25 Mg Tab PO 50 mg QHS DAQUAN Administration Sodium Chloride 10 ml 05/17/22 22:00 05/20/22 09:32 Sodium Chloride 0.9% 10 Ml Flush Syringe IV 10 ml BID DAQUAN Administration Sodium Chloride 10 ml 05/17/22 14:26 Sodium Chloride 0.9% 10 Ml Flush Syringe IV PRN PRN LINE FLUSH Nutrition/Malnutrition Assess - Dietary Evaluation Nutrition/Malnutrition Findings: Nutrition Notes Start: 05/18/22 14:16 Freq: Status: Active Protocol: Document 05/18/22 14:16 [facility] (Rec: 05/18/22 14:22 [facility] [id number]) Nutrition Notes Need for Assessment generated 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 Pt intubated and has a hx of intubation and PEG tube placement. Burn Absent Trauma Absent Skin Integrity/Comment Pt with (R) hand wound Minimum of two criteria No #1 Nutrition Diagnosis Swallowing difficulty [facility] As Evidenced by Signs and Symptoms pt NPO Is patient on ventilator? Yes Is Patient Ambulatory and/or Out of Bed No REE-([facility]-confined to bed) 6.161 Calculation Used for Recommendations [facility] Additional Notes Pro needs >1.2g/kg: >92g/day Fluid needs 1-1.5L/day Nutrition Intervention Nutrition Support: Nepro at 45ml/hr with 120ml water flush q4h. Kcal 1,944 Protein (gm) 87 Carbohydrates (gm) 174 Fat (gm) 104 Fluid (mL) 785 Fiber (gm) 14 Goal #1 TF tolerance Goal #2 TF to meet at least 75% energy and pro needs Anticipated Discharge Needs: Continue EN support if necessary Follow-Up By: 05/20/22 Additional Comments F/U: new TF, vent status <SARAH AVITIA - Last Filed: 05/21/22 07:28> Assessment and Plan Assessment and plan: I saw and evaluated the patient. I agree with the findings and the plan of care as documented in the Nurse Practitioner's~note, with the following corrections and additions. Hospitalist Physical - Constitutional Vitals: Temp Pulse Resp BP Pulse Ox 99 F 78 15 95/56 100 05/21/22 04:00 05/21/22 07:00 05/21/22 07:00 05/21/22 07:00 05/21/22 07:00 Results - Labs CBC & Chem 7: 05/20/22 04:31 05/21/22 04:13 Labs: Laboratory Last Values WBC 6.2 K/mm3 (4.5-11.0) 05/20/22 04:31 RBC 2.72 M/mm3 (3.65-5.03) L 05/20/22 04:31 Hgb 7.8 gm/dl (11.8-15.2) L 05/20/22 04:31 Hct 24.1 % (35.5-45.6) L 05/20/22 04:31 MCV 89 fl (84-94) 05/20/22 04:31 MCH 29 pg (28-32) 05/20/22 04:31 MCHC 32 % (32-34) 05/20/22 04:31 RDW 20.9 % (13.2-15.2) H 05/20/22 04:31 Plt Count 172 K/mm3 (140-440) 05/20/22 04:31 Lymph % (Auto) 16.2 % (13.4-35.0) 05/18/22 04:20 [place] % (Auto) 15.1 % (0.0-7.3) H 05/18/22 04:20 Eos % (Auto) 3.1 % (0.0-4.3) 05/18/22 04:20 Baso % (Auto) 1.1 % (0.0-1.8) 05/18/22 04:20 Lymph # (Auto) 0.5 K/mm3 (1.2-5.4) L 05/18/22 04:20 [place] # (Auto) 0.5 K/mm3 (0.0-0.8) 05/18/22 04:20 Eos # (Auto) 0.1 K/mm3 (0.0-0.4) 05/18/22 04:20 Baso # (Auto) 0.0 K/mm3 (0.0-0.1) 05/18/22 04:20 Seg Neutrophils % 64.5 % (40.0-70.0) 05/18/22 04:20 Seg Neutrophils # 2.0 K/mm3 (1.8-7.7) 05/18/22 04:20 ABG pH 7.367 pH Units (7.350-7.450) 05/18/22 06:00 ABG pCO2 44.9 mm Hg 05/18/22 06:00 ABG pO2 158.7 mm Hg (80.0-90.0) H 05/18/22 06:00 ABG HCO3 25.2 mmol/L (20.0-26.0) 05/18/22 06:00 ABG O2 Saturation 98.9 % (95.0-99.0) 05/18/22 06:00 ABG O2 Content 13.0 (0.0-44) 05/18/22 06:00 ABG Base Excess -0.3 mmol/L (-2.0-3.0) 05/18/22 06:00 ABG Hemoglobin 9.4 gm/dl (14.0-18.0) L 05/18/22 06:00 ABG Carboxyhemoglobin 2.3 % (0.0-5.0) 05/18/22 06:00 ABG Methemoglobin 0.5 % (0.0-1.5) 05/18/22 06:00 Oxyhemoglobin 96.2 % (95.0-99.0) 05/18/22 06:00 FiO2 40 % 05/18/22 06:00 Sodium 140 mmol/L (137-145) 05/21/22 04:13 Potassium 4.2 mmol/L (3.6-5.0) D 05/21/22 04:13 Chloride 97.7 mmol/L (98-107) L 05/21/22 04:13 Carbon Dioxide 28 mmol/L (22-30) 05/21/22 04:13 Anion Gap 19 mmol/L 05/21/22 04:13 BUN 37 mg/dL (9-20) H 05/21/22 04:13 Creatinine 4.9 mg/dL (0.8-1.3) H 05/21/22 04:13 Estimated GFR 12 ml/min 05/21/22 04:13 BUN/Creatinine Ratio 8 % 05/21/22 04:13 Glucose 84 mg/dL (75-100) 05/21/22 04:13 POC Glucose 104 mg/dL (70-105) 05/20/22 22:52 Calcium 8.0 mg/dL (8.4-10.2) L 05/21/22 04:13 Phosphorus 3.80 mg/dL (2.5-4.5) D 05/21/22 04:13 Magnesium 1.80 mg/dL (1.7-2.3) 05/21/22 04:13 Total Bilirubin 0.40 mg/dL (0.1-1.2) 05/17/22 14:28 AST 7 units/L (5-40) 05/17/22 14:28 ALT < 5 units/L (7-56) L 05/17/22 14:28 Alkaline Phosphatase 78 units/L (35-129) 05/17/22 14:28 Total Protein 6.1 g/dL (6.3-8.2) L 05/17/22 14:28 Albumin 2.9 g/dL (3.9-5) L 05/17/22 14:28 Albumin/Globulin Ratio 0.9 % 05/17/22 14:28 Nasal Screen MRSA (PCR) Negative (Negative) 05/18/22 08:30 Coronavirus (PCR) Negative (Negative) 05/18/22 07:57 Hepatitis A IgM Ab Non-reactive (NonReactive) 05/18/22 18:10 Hep Bs Antigen Non-reactive (Negative) 05/18/22 18:10 Hep B Core IgM Ab Non-reactive (NonReactive) 05/18/22 18:10 Hepatitis C Antibody Reactive (NonReactive) A 05/18/22 18:10 Microbiology: Microbiology 05/18/22 16:38 Tracheal Aspirate Sputum Culture - Final Active Medications - Current Medications Current Medications: Generic Name Dose Route Start Last Admin Trade Name Freq PRN Reason Stop Dose Admin Acetaminophen 650 mg 05/17/22 14:26 Acetaminophen 325 Mg Tab PO Q4H PRN Pain MILD(1-3)/Fever >100.5/DYER Albumin Human 25 gm 05/18/22 09:10 Albumin Human 25% (25 Gm/100 Ml) Inj IV TOM PRN Hypotension Albuterol 2.5 mg 05/18/22 06:02 Albuterol 2.5 Mg/3 Ml Nebu IH Q3HRT PRN Wheezing Alprazolam 0.5 mg 05/20/22 08:34 05/20/22 14:43 Alprazolam 0.5 Mg Tab PO 0.5 mg BID PRN Administration Anxiety Aspirin 81 mg 05/21/22 10:00 Aspirin Ec 81 Mg Tab PO QDAY DAQUAN Dextrose 50 ml 05/18/22 15:00 Dextrose 50% In Water (25gm) 50 Ml Syringe IV Q30MIN PRN Hypoglycemia Protocol Diphenhydramine HCl 25 mg 05/20/22 13:30 05/20/22 13:30 Diphenhydramine 25 Mg Cap PO 25 mg Q6H PRN Administration Itching Epoetin Jacinto-epbx 10,000 unit 05/18/22 09:10 05/20/22 17:25 Epoetin Jacinto-Epbx 10,000 Unit/1 Ml Vial IV 10,000 unit TOM PRN Administration hemodialysis Famotidine 20 mg 05/20/22 10:00 05/20/22 09:33 Famotidine 20 Mg Tab PO 20 mg QDAY DAQUAN Administration Heparin Sodium (Porcine) 5,000 unit 05/17/22 22:00 05/20/22 21:02 Heparin 5,000 Unit/1 Ml Vial SUB-Q 5,000 unit Q12HR DAQUAN Administration Dexmedetomidine HCl 400 mcg/ 104 mls @ 3.968 mls/hr 05/17/22 16:00 05/21/22 05:54 Sodium Chloride IV 1 mcg/kg/hr TITRATE DAQUAN 19.838 mls/hr Titration Protocol 0.2 MCG/KG/HR Sodium Chloride 100 mls @ 999 mls/hr 05/18/22 09:10 Nacl 0.9% IV TOM PRN Hypotension Cefepime HCl 1 gm in 100 mls @ 200 mls/hr 05/19/22 11:00 05/20/22 10:46 Cefepime/Ns 1 Gm/100 Ml IV 200 mls/hr Q24H DAQUAN Administration Protocol Losartan Potassium 100 mg 05/20/22 10:00 05/20/22 09:31 Losartan 50 Mg Tab PO 100 mg QDAY DAQUAN Administration Metoclopramide HCl 5 mg 05/18/22 09:00 05/19/22 07:53 Metoclopramide 10 Mg/2 Ml Inj IV 5 mg Q6H PRN Administration Nausea And Vomiting Metoprolol Tartrate 100 mg 05/19/22 17:00 05/20/22 21:01 Metoprolol Tartrate 100 Mg Tab PO 100 mg BID DAQUAN Administration Metoprolol Tartrate 2.5 mg 05/19/22 20:00 05/20/22 14:43 Metoprolol Tartrate 5 Mg/5 Ml Inj IV 2.5 mg Q6HR PRN Administration tachycardia Morphine Sulfate 2 mg 05/17/22 14:26 05/21/22 00:06 Morphine 2 Mg/1 Ml Inj IV 2 mg Q4H PRN Administration Pain, Moderate (4-6) Nifedipine 60 mg 05/20/22 10:00 05/20/22 21:01 Nifedipine Xl 60 Mg Tab PO 60 mg BID DAQUAN Administration Ondansetron HCl 4 mg 05/17/22 14:26 05/20/22 07:55 Ondansetron 4 Mg/2 Ml Inj IV 4 mg Q3H PRN Administration Nausea And Vomiting Oxycodone/Acetaminophen 1 tab 05/19/22 19:25 05/21/22 06:14 Oxycodone /Acetaminophen 5-325mg Tab PO 1 tab Q8H PRN Administration Pain, Moderate (4-6) Quetiapine Fumarate 50 mg 05/19/22 22:00 05/20/22 21:01 Quetiapine 25 Mg Tab PO 50 mg QHS DAQUAN Administration Sodium Chloride 10 ml 05/17/22 22:00 05/20/22 22:00 Sodium Chloride 0.9% 10 Ml Flush Syringe IV 10 ml BID DAQUAN Administration Sodium Chloride 10 ml 05/17/22 14:26 Sodium Chloride 0.9% 10 Ml Flush Syringe IV PRN PRN LINE FLUSH Nutrition/Malnutrition Assess - Dietary Evaluation Nutrition/Malnutrition Findings: Nutrition Notes Start: 05/18/22 14:16 Freq: Status: Active Protocol: Document 05/20/22 12:37 LUCERO (Rec: 05/20/22 13:15 LUCERO [id number]) Nutrition Notes Initial or Follow up Reassessment Current Diagnosis CKD (stage V CKD),COPD, Hypertension,Malnutrition Other Pertinent Diagnosis Metabolic Encephalopathy, L- Elbow+Pelvic Fractures s/p Fall, ESRD+HD, Atria Current Diet Renal Diet (since D 05/19), D Suppl (since L 05/20). Labs/Tests 05/20: K 5.4, Cl 96.5, BUN 53, Crea 6.7, Glu 115, Ca 8.1, Phos 7.9. Pertinent Medications 05/20: Nutritionally unremarkable. 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 No body weight change reported in 2 days. Weight Status Appropriate Subjective/Other Information RD consult for routine F/U on TF tolerance/continuation assessment. TF was discontinued and Pt advanced to PO diet, No reports available on Pt's PO intake of meals at the time, will assess at F/U. MD prescribed dietary supplements, I will keep the prescription to compensate for possible poor or insufficient PO intake of meals during LOS . IMPROVEMENT ENGINEER note on 05/20/22 11:00: Received a repeat order to assess swallowing function. Spoke with the patient's nurse who was aware of the assessment which was conducted the previous day. Patient is safe for a regular diet. Will discharge the order. - END OF NOTE. Pt is on Room Air, O2 saturation @ 100%, according to Physical Assessment History notes. Pt was extubated on 05/19, well tolerated room air directly, according to Progress notes. Pt experienced a fall on 05/19 with subsequent L-elbow and pelvic fractures, according to Progress notes. Pt presents R-hand abrasions and neck surgical wound as signs of concern for skin risk at the time, according to Physical Assessment History notes. Percent of energy/protein needs met: Prescribed Renal Diet provides for energy/protein needs (2, 072 Kcal/77 g) during LOS; additionally, Dietary Supplements will compensate for possible poor or insufficient PO intake of meals with 850 Kcal and 38 g of protein. Burn Absent Trauma Present GI Symptoms None Food Allergy No Skin Integrity/Comment R-hand abrasions+neck surgical woun Minimum of two criteria No Fluid Accumulation N/A Reduced Parts Analyst Strength N/A (non-severe) Protein-Calorie Malnutrition N\A #1 Nutrition Diagnosis Swallowing difficulty Comments: TF was discontinued and Pt advanced to PO diet on 05/19. Diagnosis Progress(for reassessment Resolved documentation) Is patient on ventilator? No Is Patient Ambulatory and/or Out of Bed Yes REE-([facility]-ambulatory/OOB) [ [id number] [id number]] Calculation Used for Recommendations [facility] Additional Notes Protein: >1.2 g/Kg ABW; >92 g/ day. Fluids: 1 ml/Kcal, or as per MD. Nutrition Intervention Change Diet Order: Continue Renal Diet as tolerated. Nutrition Support: Discontinued. Add Supplement/Snack (indicate name/kcal Continue 8 fl oz Nepro w/ /protein ) CARBSTEADY; BID. Provides kCal: 850 Provides Protein (gm) 38 Goal #1 Compensate, through dietary supplementation, for possible poor or insufficient PO intake of meals during LOS. Goal #2 Adjust the dietary intervention to better serve Pt's needs and clinical conditions during LOS. Follow-Up By: 05/27/22 Additional Comments Continue monitoring food tolerance, %PO intake of meals , dietary supplements, and BM.
--- NOTE | 2022-05-20 13:01 | Consultation ---
History of Present Illness Consult date: 05/20/22 Consult reason: atrial fibrillation History of present illness: The patient is a 56-year-old man who was brought to the emergency room from a [facility] for respiratory distress. On presentation here, there was atrial fibrillation with rapid ventricular response, which prompted a cardiac consultation. His recent history is of a large subdural hematoma resulting from a fall, for which he underwent craniotomy at [facility]. Following his surgery, he was transitioned to the [facility] There are no records available to me from his stay at [facility], but his records from the [facility] report that his atrial fibrillation is chronic. The records also report a history of a cardiomyopathy but no documentation of his baseline ejection fraction or the etiology of the cardiomyopathy. The patient is currently awake, breathing comfortably on bedrest in the ICU. He appears lethargic, but no acute respiratory distress. Current atrial fibrillation rate is in the 100s to 110s, blood pressure is stable. Chest x-ray revealed normal-sized cardiac silhouette, some haziness in the left lung field, no evidence of interstitial edema or heart failure. Comorbidities include end-stage renal disease on hemodialysis. Current laboratory values include anemia with a hematocrit of 24, and creatinine of 4.9 consistent with his end-stage renal failure. A COVID-19 test is negative. Past History Past Medical History: atrial fib, COPD, dialysis, ESRD, hypertension, renal failure, other (Subdural hematoma, S/P craniotomy) Past Surgical History: Other (Evacuation of subdural hematoma. History of tracheostomy and PEG placement.) Social history: smoking, other (History of Cocaine abuse.) Medications and Allergies Allergies Allergy/AdvReac Type Severity Reaction Status Date / Time No Known Allergies Allergy Unverified 05/17/22 15:36 Home Medications Medication Instructions Recorded Confirmed Last Taken Type ALPRAZolam 0.5 mg PO BID 05/19/22 05/19/22 Unknown History Clopidogrel [Plavix] 75 mg PO QDAY 05/19/22 05/19/22 Unknown History Losartan [Cozaar] 100 mg PO QDAY 05/19/22 05/19/22 Unknown History Metoprolol [Lopressor TAB] 100 mg PO BID 05/19/22 05/19/22 Unknown History NIFEdipine [Nifedipine ER] 60 mg PO BID 05/19/22 05/19/22 Unknown History Oxycodone HCl/Acetaminophen 1 each PO Q8H PRN 05/19/22 05/19/22 Unknown History [Oxycodone-Acetaminophen 10-325] QUEtiapine [SEROquel] 50 mg PO BID 05/19/22 05/19/22 Unknown History Trelegy Ellipta 100-62.5-25 100 mcg INHALATION DAILY 05/19/22 05/19/22 Unknown History dilTIAZem [CarDIZEM] 180 mg PO BID 05/19/22 05/19/22 Unknown History Active Meds: Active Medications Acetaminophen (Acetaminophen 325 Mg Tab) 650 mg PO Q4H PRN PRN Reason: Pain MILD(1-3)/Fever >100.5/DYER Albumin Human (Albumin Human 25% (25 Gm/100 Ml) Inj) 25 gm IV TOM PRN PRN Reason: Hypotension Albuterol (Albuterol 2.5 Mg/3 Ml Nebu) 2.5 mg IH Q3HRT PRN PRN Reason: Wheezing Alprazolam (Alprazolam 0.5 Mg Tab) 0.5 mg PO BID PRN PRN Reason: Anxiety Last Admin: 05/20/22 09:32 Dose: 0.5 mg Dextrose (Dextrose 50% In Water (25gm) 50 Ml Syringe) 50 ml IV Q30MIN PRN; Protocol PRN Reason: Hypoglycemia Diphenhydramine HCl (Diphenhydramine 25 Mg Cap) 25 mg PO Q6H PRN PRN Reason: Itching Epoetin Jacinto-epbx (Epoetin Jacinto-Epbx 10,000 Unit/1 Ml Vial) 10,000 unit IV TOM PRN PRN Reason: hemodialysis Famotidine (Famotidine 20 Mg Tab) 20 mg PO QDAY DAQUAN Last Admin: 05/20/22 09:33 Dose: 20 mg Heparin Sodium (Porcine) (Heparin 5,000 Unit/1 Ml Vial) 5,000 unit SUB-Q Q12HR DAQUAN Last Admin: 05/20/22 09:33 Dose: Not Given Dexmedetomidine HCl 400 mcg/ (Sodium Chloride) 104 mls @ 3.968 mls/hr IV TITRATE DAQUAN; Protocol Last Titration: 05/20/22 12:50 Dose: 0.2 mcg/kg/hr, 3.968 mls/hr Sodium Chloride (Nacl 0.9%) 100 mls @ 999 mls/hr IV TOM PRN PRN Reason: Hypotension Cefepime HCl (Cefepime/Ns 1 Gm/100 Ml) 1 gm in 100 mls @ 200 mls/hr IV Q24H [facility]; Protocol Last Admin: 05/20/22 10:46 Dose: 200 mls/hr Losartan Potassium (Losartan 50 Mg Tab) 100 mg PO QDAY [facility] Last Admin: 05/20/22 09:31 Dose: 100 mg Metoclopramide HCl (Metoclopramide 10 Mg/2 Ml Inj) 5 mg IV Q6H PRN PRN Reason: Nausea And Vomiting Last Admin: 05/19/22 07:53 Dose: 5 mg Metoprolol Tartrate (Metoprolol Tartrate 100 Mg Tab) 100 mg PO BID [facility] Last Admin: 05/20/22 09:32 Dose: 100 mg Metoprolol Tartrate (Metoprolol Tartrate 5 Mg/5 Ml Inj) 2.5 mg IV Q6HR PRN PRN Reason: tachycardia Last Admin: 05/20/22 07:55 Dose: 2.5 mg Morphine Sulfate (Morphine 2 Mg/1 Ml Inj) 2 mg IV Q4H PRN PRN Reason: Pain, Moderate (4-6) Last Admin: 05/20/22 01:26 Dose: 2 mg Nifedipine (Nifedipine Xl 60 Mg Tab) 60 mg PO BID [facility] Last Admin: 05/20/22 09:31 Dose: 60 mg Ondansetron HCl (Ondansetron 4 Mg/2 Ml Inj) 4 mg IV Q3H PRN PRN Reason: Nausea And Vomiting Last Admin: 05/20/22 07:55 Dose: 4 mg Oxycodone/Acetaminophen (Oxycodone /Acetaminophen 5-325mg Tab) 1 tab PO Q8H PRN PRN Reason: Pain, Moderate (4-6) Last Admin: 05/20/22 07:54 Dose: 1 tab Quetiapine Fumarate (Quetiapine 25 Mg Tab) 50 mg PO QHS [facility] Last Admin: 05/19/22 21:34 Dose: 50 mg Sodium Chloride (Sodium Chloride 0.9% 10 Ml Flush Syringe) 10 ml IV BID [facility] Last Admin: 05/20/22 09:32 Dose: 10 ml Sodium Chloride (Sodium Chloride 0.9% 10 Ml Flush Syringe) 10 ml IV PRN PRN PRN Reason: LINE FLUSH Review of Systems ROS unobtainable: due to mental status Physical Examination Vital Signs Pulse Pulse Ox 159 H 90 05/17/22 14:16 05/17/22 14:16 General appearance: mild distress, cachectic HEENT: Positive: PERRL Neck: Positive: neck supple Cardiac: Positive: irregularly irregular Lungs: Positive: Decreased Breath Sounds Neuro: Positive: Weakness (Generalized lethargy) Abdomen: Positive: Soft Male genitourinary: Positive: deferred Skin: Positive: Clear Extremities: Absent: edema Results 05/20/22 04:31 05/20/22 04:31 CBC 05/20/22 Range/Units 04:31 WBC 6.2 (4.5-11.0) K/mm3 RBC 2.72 L (3.65-5.03) M/mm3 Hgb 7.8 L (11.8-15.2) gm/dl Hct 24.1 L (35.5-45.6) % Plt Count 172 (140-440) K/mm3 Comprehensive Metabolic Panel 05/20/22 Range/Units 04:31 Sodium 137 (137-145) mmol/L Potassium 5.4 H (3.6-5.0) mmol/L Chloride 96.5 L (98-107) mmol/L Carbon Dioxide 22 (22-30) mmol/L BUN 53 H (9-20) mg/dL Creatinine 6.7 H (0.8-1.3) mg/dL Glucose 115 H (75-100) mg/dL Calcium 8.1 L (8.4-10.2) mg/dL EKG interpretations - Telemetry EKG Rhythm: Atrial Fibrillation (With rapid ventricular rate) Assessment and Plan - Patient Problems (1) Rapid atrial fibrillation Current Visit: Yes Status: Acute Plan to address problem: 56-year-old man status post craniotomy for traumatic subdural hematoma, recovering in a long-term acute care facility, transferred to the hospital with respiratory distress. He has chronic atrial fibrillation, with increased ventricular rate associated with his acute respiratory decompensated. We will optimize rate control as indicated, order an echocardiogram for left ventricular function assessment. Following his recent craniotomy, and with ongoing anemia, he is not a candidate for oral anticoagulation at this time.
[2022-05-20] MEDS: diphenhydrAMINE 25 MG CAP PO PRN (13:30)
--- NOTE | 2022-05-20 15:57 | Progress Note ---
Assessment and Plan Acute hypoxemic respiratory failure s/p mechanical ventilatory support Acute toxic metabolic encephalopathy Left subdural hematoma s/p evacuation End-stage renal disease on dialysis Hypertension COPD CMOP H/O Cocaine abuse Oropharyngeal dysphagia -Continue supplemental oxygen keep SpO2 89-92% -Precedex infusion, titrate to keep RASS 0 to -1 -CXR,ABG as indicated -continue bronchodilators with pulmonary hygiene per RT -continue to wean per pulmonary driven protocols -continue HD/UF per nephrology prescription for toxin and volume clearance -prn analgesia per pain score - follow clinically re: fever curves / trend WBC - Avoid delirium (no benzodiazepines if they can be avoided) - Maintain sleep-wake cycle - accuchecks with glycemic control per SSI for target blood glucose goal of < 180 mg/dL; Avoid hypoglycemia - VTE prophylaxis with Heparin - stress ulcer prophylaxis with Pantoprazole - fall precautions - Supportive transfusions to keep Hb>7g/dL - continue to monitor neurologic function - continue chronic home medications as indicated - continue all supportive care -Cardiology and Ortho consults pending -Home anti-anxiety medications -PT/OT per Ortho recs -Discontinue RIJ CVL, place peripheral IVs -Updated his at the bedside Subjective Date of service: 05/20/22 Interval history: Patient is being seen today for Acute hypoxemic respiratory failure; AMS; Left [facility]; ESRD on dialysis; COPD; H/O Cocaine abuse Seen and examined at bedside; 24hr events reviewed; nursing and respiratory care staff consulted; no adverse overnight events reported to me; resting peacefully in bed;s/p extubation, no fevers, no chills, no vomiting. Increase anxiety and agitation overnight, back on low dose precedex infusion. In Afib with RVR s/p fall CT shows hip fracture Lt. elbow X-ray and CT scans reviewed, fractures enthesophytes, superior and inferior pubic rami with soft tissue hematoma reported. Objective Vital Signs - 12hr 05/20/22 05/20/22 05/20/22 04:00 04:16 04:30 Temperature Pulse Rate 126 H 121 H 117 H Respiratory 17 17 12 Rate Blood Pressure 147/109 147/109 147/109 O2 Sat by Pulse 98 95 98 Oximetry 05/20/22 05/20/22 05/20/22 04:32 04:46 05:00 Temperature 97.8 F Pulse Rate 113 H 111 H Respiratory 18 12 Rate Blood Pressure 147/109 139/118 O2 Sat by Pulse 98 98 Oximetry 05/20/22 05/20/22 05/20/22 05:16 05:30 05:46 Temperature Pulse Rate 128 H 130 H 127 H Respiratory 19 12 18 Rate Blood Pressure 147/109 147/109 147/109 O2 Sat by Pulse 97 97 100 Oximetry 05/20/22 05/20/22 05/20/22 06:00 06:16 06:30 Temperature Pulse Rate 132 H 121 H 128 H Respiratory 15 17 15 Rate Blood Pressure 139/103 139/103 139/103 O2 Sat by Pulse 96 100 99 Oximetry 05/20/22 05/20/22 05/20/22 06:46 07:00 07:16 Temperature Pulse Rate 128 H 129 H 131 H Respiratory 17 15 16 Rate Blood Pressure 139/103 149/113 149/113 O2 Sat by Pulse 100 100 97 Oximetry 05/20/22 05/20/22 05/20/22 07:30 07:46 07:55 Temperature Pulse Rate 131 H 124 H 140 H Respiratory 15 18 Rate Blood Pressure 149/113 149/113 O2 Sat by Pulse 99 99 Oximetry 05/20/22 05/20/22 05/20/22 07:56 08:00 08:16 Temperature 97.8 F Pulse Rate 138 H 120 H Respiratory 20 18 Rate Blood Pressure 158/116 158/116 O2 Sat by Pulse 100 78 L 97 Oximetry 05/20/22 05/20/22 05/20/22 08:30 08:46 09:00 Temperature Pulse Rate 118 H 123 H 133 H Respiratory 19 17 19 Rate Blood Pressure 158/116 158/116 153/117 O2 Sat by Pulse 99 99 95 Oximetry 05/20/22 05/20/22 05/20/22 09:16 09:30 09:31 Temperature Pulse Rate 132 H 123 H 127 H Respiratory 20 20 Rate Blood Pressure 153/117 153/117 153/117 O2 Sat by Pulse 98 98 Oximetry 05/20/22 05/20/22 05/20/22 09:32 09:46 10:00 Temperature Pulse Rate 127 H 130 H 117 H Respiratory 22 18 Rate Blood Pressure 153/117 153/117 148/126 O2 Sat by Pulse 96 100 Oximetry 05/20/22 05/20/22 05/20/22 10:16 10:30 10:46 Temperature Pulse Rate 129 H 118 H 134 H Respiratory 12 17 22 Rate Blood Pressure 148/126 148/126 148/126 O2 Sat by Pulse 98 97 96 Oximetry 05/20/22 05/20/22 05/20/22 11:00 11:16 11:30 Temperature Pulse Rate 113 H 125 H 130 H Respiratory 17 20 21 Rate Blood Pressure 150/119 150/119 150/119 O2 Sat by Pulse 100 94 94 Oximetry 05/20/22 05/20/22 05/20/22 11:32 11:46 12:00 Temperature 98.7 F Pulse Rate 121 H 128 H Respiratory 20 26 H Rate Blood Pressure 150/119 150/119 O2 Sat by Pulse 95 99 Oximetry 05/20/22 05/20/22 05/20/22 12:16 12:30 12:46 Temperature Pulse Rate 125 H 125 H 112 H Respiratory 26 H 13 20 Rate Blood Pressure 148/108 148/108 148/108 O2 Sat by Pulse 94 96 99 Oximetry 05/20/22 05/20/22 05/20/22 13:00 13:16 13:30 Temperature Pulse Rate 134 H 135 H 113 H Respiratory 19 16 25 H Rate Blood Pressure 141/103 141/103 141/103 O2 Sat by Pulse 94 97 96 Oximetry 05/20/22 05/20/22 05/20/22 13:46 14:00 14:16 Temperature Pulse Rate 126 H 138 H 132 H Respiratory 18 21 26 H Rate Blood Pressure 141/103 140/104 140/104 O2 Sat by Pulse 95 97 98 Oximetry 05/20/22 05/20/22 05/20/22 14:30 14:43 14:46 Temperature Pulse Rate 131 H 130 H 108 H Respiratory 20 22 Rate Blood Pressure 140/104 132/97 O2 Sat by Pulse 96 86 Oximetry 05/20/22 05/20/22 15:00 15:15 Temperature Pulse Rate 113 H 104 H Respiratory 21 15 Rate Blood Pressure 121/96 115/93 O2 Sat by Pulse 100 100 Oximetry Constitutional: no acute distress, alert, other (extubated, in no distress) Eyes: non-icteric ENT: oropharynx moist Neck: supple, no JVD, other (RIJ CVL) Effort: normal Ascultation: Bilateral: rales Cardiovascular: irregular rhythm, other (S1,S2) Gastrointestinal: hypoactive bowel sounds, other (slightly distended.) Integumentary: normal Extremities: no cyanosis, no edema Neurologic: normal mental status, non-focal exam, pupils equal and round, motor strength normal and Psychiatric: mood appropriate, affect normal CBC and BMP: 05/22/22 03:59 05/22/22 03:59 ABG, PT/INR, D-dimer: ABG ABG pH 7.367 pH Units (7.350-7.450) 05/18/22 06:00 ABG pCO2 44.9 mm Hg 05/18/22 06:00 ABG pO2 158.7 mm Hg (80.0-90.0) H 05/18/22 06:00 ABG O2 Saturation 98.9 % (95.0-99.0) 05/18/22 06:00 Abnormal lab findings: Abnormal Labs 05/17/22 05/17/22 05/17/22 14:26 14:28 15:10 WBC 4.0 L RBC 2.86 L Hgb 8.4 L Hct 24.9 L RDW 20.9 H Plt Count [place] % (Auto) 14.7 H Lymph # (Auto) 0.6 L ABG pO2 191.6 H ABG O2 Saturation 99.2 H ABG Hemoglobin 9.0 L Sodium 126 L Potassium 6.0 H Chloride 91.0 L BUN 42 H Creatinine 6.9 H Glucose POC Glucose Calcium Phosphorus ALT < 5 L Total Protein 6.1 L Albumin 2.9 L Hepatitis C Antibody 05/18/22 05/18/22 05/18/22 04:13 04:20 06:00 WBC 3.0 L RBC 2.87 L Hgb 8.1 L Hct 25.3 L RDW 20.7 H Plt Count 127 L [place] % (Auto) 15.1 H Lymph # (Auto) 0.5 L ABG pO2 158.7 H ABG O2 Saturation ABG Hemoglobin 9.4 L Sodium 128 L Potassium 6.8 H* Chloride 93.7 L BUN 48 H Creatinine 6.8 H Glucose POC Glucose Calcium Phosphorus ALT Total Protein Albumin Hepatitis C Antibody 05/18/22 05/18/22 05/18/22 17:49 18:10 23:15 WBC RBC Hgb Hct RDW Plt Count [place] % (Auto) Lymph # (Auto) ABG pO2 ABG O2 Saturation ABG Hemoglobin Sodium Potassium Chloride BUN Creatinine Glucose POC Glucose 144 H 145 H Calcium Phosphorus ALT Total Protein Albumin Hepatitis C Antibody Reactive A 05/19/22 05/19/22 05/19/22 03:18 03:18 05:21 WBC 2.6 L RBC 2.94 L Hgb 8.5 L Hct 26.2 L RDW 20.3 H Plt Count 137 L [place] % (Auto) Lymph # (Auto) ABG pO2 ABG O2 Saturation ABG Hemoglobin Sodium Potassium 5.1 H D Chloride BUN 34 H Creatinine 4.9 H Glucose 130 H POC Glucose 143 H Calcium 8.3 L Phosphorus ALT Total Protein Albumin Hepatitis C Antibody 05/19/22 05/19/22 05/20/22 11:23 17:48 00:01 WBC RBC Hgb Hct RDW Plt Count [place] % (Auto) Lymph # (Auto) ABG pO2 ABG O2 Saturation ABG Hemoglobin Sodium Potassium Chloride BUN Creatinine Glucose POC Glucose 127 H 156 H 142 H Calcium Phosphorus ALT Total Protein Albumin Hepatitis C Antibody 05/20/22 05/20/22 04:31 04:31 WBC RBC 2.72 L Hgb 7.8 L Hct 24.1 L RDW 20.9 H Plt Count [place] % (Auto) Lymph # (Auto) ABG pO2 ABG O2 Saturation ABG Hemoglobin Sodium Potassium 5.4 H Chloride 96.5 L BUN 53 H Creatinine 6.7 H Glucose 115 H POC Glucose Calcium 8.1 L Phosphorus 7.90 H ALT Total Protein Albumin Hepatitis C Antibody Chest x-ray: image reviewed Allied health notes reviewed: nursing
--- NOTE | 2022-05-20 16:06 | Progress Note ---
Assessment and Plan - Patient Problems (1) Hyperkalemia Current Visit: Yes Status: Acute Plan to address problem: levels have improved with hemodialysis. Please ensure that when appropriate that patient be placed on a low potassium diet. (2) Acute respiratory failure with hypoxia Current Visit: Yes Status: Acute Plan to address problem: extubated at this time. (3) ESRD on dialysis Current Visit: Yes Status: Chronic Plan to address problem: Have started patient on Wednesday/Wednesday/Wednesday inpatient hemodialysis schedule. Discussed with dialysis staff. (4) HTN (hypertension) Current Visit: Yes Status: Chronic Qualifiers: Hypertension type: primary hypertension Qualified Code(s): I10 - Essential (primary) hypertension Plan to address problem: monitor blood pressures on her current regimen. (5) Subdural hematoma Current Visit: Yes Status: Chronic Plan to address problem: Status post craniotomy and decompression. Subjective Date of service: 05/20/22 Interval history: Patient extubated, dialysis treatment started at bedside in ICU. Objective - Vital Signs Vital signs: Vital Signs - 12hr 05/20/22 05/20/22 05/20/22 04:16 04:30 04:32 Temperature 97.8 F Pulse Rate 121 H 117 H Respiratory 17 12 Rate Blood Pressure 147/109 147/109 O2 Sat by Pulse 95 98 Oximetry 05/20/22 05/20/22 05/20/22 04:46 05:00 05:16 Temperature Pulse Rate 113 H 111 H 128 H Respiratory 18 12 19 Rate Blood Pressure 147/109 139/118 147/109 O2 Sat by Pulse 98 98 97 Oximetry 05/20/22 05/20/22 05/20/22 05:30 05:46 06:00 Temperature Pulse Rate 130 H 127 H 132 H Respiratory 12 18 15 Rate Blood Pressure 147/109 147/109 139/103 O2 Sat by Pulse 97 100 96 Oximetry 05/20/22 05/20/22 05/20/22 06:16 06:30 06:46 Temperature Pulse Rate 121 H 128 H 128 H Respiratory 17 15 17 Rate Blood Pressure 139/103 139/103 139/103 O2 Sat by Pulse 100 99 100 Oximetry 05/20/22 05/20/22 05/20/22 07:00 07:16 07:30 Temperature Pulse Rate 129 H 131 H 131 H Respiratory 15 16 15 Rate Blood Pressure 149/113 149/113 149/113 O2 Sat by Pulse 100 97 99 Oximetry 05/20/22 05/20/22 05/20/22 07:46 07:55 07:56 Temperature Pulse Rate 124 H 140 H Respiratory 18 Rate Blood Pressure 149/113 O2 Sat by Pulse 99 100 Oximetry 05/20/22 05/20/22 05/20/22 08:00 08:16 08:30 Temperature 97.8 F Pulse Rate 138 H 120 H 118 H Respiratory 20 18 19 Rate Blood Pressure 158/116 158/116 158/116 O2 Sat by Pulse 78 L 97 99 Oximetry 05/20/22 05/20/22 05/20/22 08:46 09:00 09:16 Temperature Pulse Rate 123 H 133 H 132 H Respiratory 17 19 20 Rate Blood Pressure 158/116 153/117 153/117 O2 Sat by Pulse 99 95 98 Oximetry 05/20/22 05/20/22 05/20/22 09:30 09:31 09:32 Temperature Pulse Rate 123 H 127 H 127 H Respiratory 20 Rate Blood Pressure 153/117 153/117 153/117 O2 Sat by Pulse 98 Oximetry 05/20/22 05/20/22 05/20/22 09:46 10:00 10:16 Temperature Pulse Rate 130 H 117 H 129 H Respiratory 22 18 12 Rate Blood Pressure 153/117 148/126 148/126 O2 Sat by Pulse 96 100 98 Oximetry 05/20/22 05/20/22 05/20/22 10:30 10:46 11:00 Temperature Pulse Rate 118 H 134 H 113 H Respiratory 17 22 17 Rate Blood Pressure 148/126 148/126 150/119 O2 Sat by Pulse 97 96 100 Oximetry 05/20/22 05/20/22 05/20/22 11:16 11:30 11:32 Temperature 98.7 F Pulse Rate 125 H 130 H Respiratory 20 21 Rate Blood Pressure 150/119 150/119 O2 Sat by Pulse 94 94 Oximetry 05/20/22 05/20/22 05/20/22 11:46 12:00 12:16 Temperature Pulse Rate 121 H 128 H 125 H Respiratory 20 26 H 26 H Rate Blood Pressure 150/119 150/119 148/108 O2 Sat by Pulse 95 99 94 Oximetry 05/20/22 05/20/22 05/20/22 12:30 12:46 13:00 Temperature Pulse Rate 125 H 112 H 134 H Respiratory 13 20 19 Rate Blood Pressure 148/108 148/108 141/103 O2 Sat by Pulse 96 99 94 Oximetry 05/20/22 05/20/22 05/20/22 13:16 13:30 13:46 Temperature Pulse Rate 135 H 113 H 126 H Respiratory 16 25 H 18 Rate Blood Pressure 141/103 141/103 141/103 O2 Sat by Pulse 97 96 95 Oximetry 05/20/22 05/20/22 05/20/22 14:00 14:16 14:30 Temperature Pulse Rate 138 H 132 H 131 H Respiratory 21 26 H 20 Rate Blood Pressure 140/104 140/104 140/104 O2 Sat by Pulse 97 98 96 Oximetry 05/20/22 05/20/22 05/20/22 14:43 14:46 15:00 Temperature Pulse Rate 130 H 108 H 113 H Respiratory 22 21 Rate Blood Pressure 132/97 121/96 O2 Sat by Pulse 86 100 Oximetry 05/20/22 15:15 Temperature Pulse Rate 104 H Respiratory 15 Rate Blood Pressure 115/93 O2 Sat by Pulse 100 Oximetry - General Appearance General appearance: appears stated age EENT: ATNC Neck: no JVD Respiratory: Present: Clear to Ascultation, Normal Exam Cardiology: tachycardia Gastrointestinal: normal Integumentary: warm and dry Neurologic: no focal deficit Musculoskeletal: deferred Psychiatric: other (anxious ) - Lab 05/20/22 04:31 05/20/22 04:31 Most recent lab results ABG pH 7.367 pH Units (7.350-7.450) 05/18/22 06:00 ABG pCO2 44.9 mm Hg 05/18/22 06:00 ABG pO2 158.7 mm Hg (80.0-90.0) H 05/18/22 06:00 ABG HCO3 25.2 mmol/L (20.0-26.0) 05/18/22 06:00 ABG O2 Saturation 98.9 % (95.0-99.0) 05/18/22 06:00 Calcium 8.1 mg/dL (8.4-10.2) L 05/20/22 04:31 Phosphorus 7.90 mg/dL (2.5-4.5) H 05/20/22 04:31 Magnesium 2.00 mg/dL (1.7-2.3) 05/20/22 04:31 - Allied health notes Allied health notes reviewed: nursing Medications & Allergies - Medications Allergies/Adverse Reactions: Allergies No Known Allergies Allergy (Unverified 05/17/22 15:36) Home Medications: Home Medications Medication Instructions Recorded Confirmed Last Taken Type ALPRAZolam 0.5 mg PO BID 05/19/22 05/19/22 Unknown History Clopidogrel [Plavix] 75 mg PO QDAY 05/19/22 05/19/22 Unknown History Losartan [Cozaar] 100 mg PO QDAY 05/19/22 05/19/22 Unknown History Metoprolol [Lopressor TAB] 100 mg PO BID 05/19/22 05/19/22 Unknown History NIFEdipine [Nifedipine ER] 60 mg PO BID 05/19/22 05/19/22 Unknown History Oxycodone HCl/Acetaminophen 1 each PO Q8H PRN 05/19/22 05/19/22 Unknown History [Oxycodone-Acetaminophen 10-325] QUEtiapine [SEROquel] 50 mg PO BID 05/19/22 05/19/22 Unknown History Trelegy Ellipta 100-62.5-25 100 mcg INHALATION DAILY 05/19/22 05/19/22 Unknown History dilTIAZem [CarDIZEM] 180 mg PO BID 05/19/22 05/19/22 Unknown History Active Medications: Generic Name Dose Route Start Last Admin Trade Name Freq PRN Reason Stop Dose Admin Acetaminophen 650 mg 05/17/22 14:26 Acetaminophen 325 Mg Tab PO Q4H PRN Pain MILD(1-3)/Fever >100.5/DYER Albumin Human 25 gm 05/18/22 09:10 Albumin Human 25% (25 Gm/100 Ml) Inj IV TOM PRN Hypotension Albuterol 2.5 mg 05/18/22 06:02 Albuterol 2.5 Mg/3 Ml Nebu IH Q3HRT PRN Wheezing Alprazolam 0.5 mg 05/20/22 08:34 05/20/22 14:43 Alprazolam 0.5 Mg Tab PO 0.5 mg BID PRN Administration Anxiety Aspirin 81 mg 05/21/22 10:00 Aspirin Ec 81 Mg Tab PO QDAY DAQUAN Dextrose 50 ml 05/18/22 15:00 Dextrose 50% In Water (25gm) 50 Ml Syringe IV Q30MIN PRN Hypoglycemia Protocol Diphenhydramine HCl 25 mg 05/20/22 13:30 05/20/22 13:30 Diphenhydramine 25 Mg Cap PO 25 mg Q6H PRN Administration Itching Epoetin Jacinto-epbx 10,000 unit 05/18/22 09:10 Epoetin Jacinto-Epbx 10,000 Unit/1 Ml Vial IV TOM PRN hemodialysis Famotidine 20 mg 05/20/22 10:00 05/20/22 09:33 Famotidine 20 Mg Tab PO 20 mg QDAY DAQUAN Administration Heparin Sodium (Porcine) 5,000 unit 05/17/22 22:00 05/20/22 09:33 Heparin 5,000 Unit/1 Ml Vial SUB-Q Not Given Q12HR DAQUAN Dexmedetomidine HCl 400 mcg/ 104 mls @ 3.968 mls/hr 05/17/22 16:00 05/20/22 14:00 Sodium Chloride IV 0.3 mcg/kg/hr TITRATE DAQUAN 5.951 mls/hr Titration Protocol 0.2 MCG/KG/HR Sodium Chloride 100 mls @ 999 mls/hr 05/18/22 09:10 Nacl 0.9% IV TOM PRN Hypotension Cefepime HCl 1 gm in 100 mls @ 200 mls/hr 05/19/22 11:00 05/20/22 10:46 Cefepime/Ns 1 Gm/100 Ml IV 200 mls/hr Q24H DAQUAN Administration Protocol Losartan Potassium 100 mg 05/20/22 10:00 05/20/22 09:31 Losartan 50 Mg Tab PO 100 mg QDAY DAQUNA Administration Metoclopramide HCl 5 mg 05/18/22 09:00 05/19/22 07:53 Metoclopramide 10 Mg/2 Ml Inj IV 5 mg Q6H PRN Administration Nausea And Vomiting Metoprolol Tartrate 100 mg 05/19/22 17:00 05/20/22 09:32 Metoprolol Tartrate 100 Mg Tab PO 100 mg BID DAQUAN Administration Metoprolol Tartrate 2.5 mg 05/19/22 20:00 05/20/22 14:43 Metoprolol Tartrate 5 Mg/5 Ml Inj IV 2.5 mg Q6HR PRN Administration tachycardia Morphine Sulfate 2 mg 05/17/22 14:26 05/20/22 01:26 Morphine 2 Mg/1 Ml Inj IV 2 mg Q4H PRN Administration Pain, Moderate (4-6) Nifedipine 60 mg 05/20/22 10:00 05/20/22 09:31 Nifedipine Xl 60 Mg Tab PO 60 mg BID DAUQAN Administration Ondansetron HCl 4 mg 05/17/22 14:26 05/20/22 07:55 Ondansetron 4 Mg/2 Ml Inj IV 4 mg Q3H PRN Administration Nausea And Vomiting Oxycodone/Acetaminophen 1 tab 05/19/22 19:25 05/20/22 07:54 Oxycodone /Acetaminophen 5-325mg Tab PO 1 tab Q8H PRN Administration Pain, Moderate (4-6) Quetiapine Fumarate 50 mg 05/19/22 22:00 05/19/22 21:34 Quetiapine 25 Mg Tab PO 50 mg QHS DAQUAN Administration Sodium Chloride 10 ml 05/17/22 22:00 05/20/22 09:32 Sodium Chloride 0.9% 10 Ml Flush Syringe IV 10 ml BID DAQUAN Administration Sodium Chloride 10 ml 05/17/22 14:26 Sodium Chloride 0.9% 10 Ml Flush Syringe IV PRN PRN LINE FLUSH
[2022-05-20] MEDS: EPOETIN ALFA-EPBX 10,000 UNIT/1 ML VIAL IV PRN (17:25)
[2022-05-20] MEDS: QUEtiapine 25 MG TAB PO SCH (21:01)
[2022-05-20] MEDS ORDERED: LORazepam 2 MG/ML VIAL ONE (23:55)
[2022-05-20] MEDS ORDERED: LORazepam 2 MG/ML VIAL IV ONE (23:58)
[2022-05-21] MEDS: MORPHINE 2 MG/1 ML INJ IV PRN ×4 (00:06→20:43)
[2022-05-21] MEDS: oxyCODONE /ACETAMINOPHEN 5-325MG TAB PO PRN ×3 (06:14→22:12)
[2022-05-21] MEDS: HEPARIN 5,000 UNIT/1 ML VIAL SUB-Q SCH ×2 (09:31→21:01)
[2022-05-21] MEDS: METOPROLOL TARTRATE 100 MG TAB PO SCH ×2 (09:32→21:00)
[2022-05-21] MEDS: FAMOTIDINE 20 MG TAB PO SCH (09:32)
[2022-05-21] MEDS: ASPIRIN EC 81 MG TAB PO SCH (09:32)
[2022-05-21] MEDS: QUEtiapine 25 MG TAB PO SCH (09:49)
[2022-05-21] MEDS: LOSARTAN 50 MG TAB PO SCH (10:19)
[2022-05-21] MEDS: NIFEdipine XL 60 MG TAB PO SCH ×2 (10:24→21:01)
[2022-05-21] MEDS: CEFEPIME/NS 1 GM/100 ML 1 GM/100 ML BAG IV SCH (10:27)
--- NOTE | 2022-05-21 10:36 | Progress Note ---
<ARIANA HARDY - Last Filed: 05/21/22 19:00> Assessment and Plan Assessment and plan: This is a 56-year-old male with HTN, cardiomyopathy, ESRD on HD, COPD, former cocaine abuser, SDH with left shift and hemoperitoneum s/p decompressive craniotomy and paracentesis, acute hypoxic respiratory failure s/p tracheostomy with eventual decannulation who was admitted with acute hypoxic respiratory failure requiring ventilatory support. Hospital course to date: 05/18: Patient is following commands remains sedated on Precedex. Patient will receive hemodialysis today. Likely will CPAP tomorrow. NG tube placed and started on tube feedings. 05/19: S/p extubation, stable on RA. Patient is s/p fall today, now c/o of Left elbow and pelvic pain. Orders placed for Lt. elbow X-ray and CT head/lumbar spine/pelvic. PRN analgesia orderd for pain control. Patient remains in Afib with RVR HR in the 120-130s, currently on PO amio. Patient's home meds list is available will resume home medications for rate control. Possible Cardiology consult if Afib RVR persists. Will keep patient in the ICU for another 24hrs post extubation, possible transfer to the floor tomorrow if patient remains stable. 05/20: Increase anxiety and agitation overnight, back on low dose precedex gtt. Lt. elbow X-ray and CT scans reviewed, fractures enthesophytes, superior and inferior pubic rami with soft tissue hematoma reported. H&H is stable, no s/s of any active bleeding. Ortho consulted for further eval and treat. Continue to trend CBC and PRN analgesia for pain control. Patient remains in Afib with RVR, on BB, BP stable. Given patient's current Afib with RVR, will continue VTE proph for now, awaiting Cardio and Ortho recommendations. Cardiology also consulted. Patient's home seroquel and antianxiety regime resumed. Wean off precedex gtt for RASS goal of 0 to -1. Plan for HD today per Nephro. PT/OT ordered. 05/21: Remains on precedex gtt due to increase agitation and combativeness overnight, symptoms resolved this am. Patient's family reported multiple psych issues since childhood. Seroquel adjusted and Mental health/psych consulted. Patient remains in Afib but in rate control this am. Cardiology recommendations appreciated, 2D echo pending. Attending also discussed with Ortho, with no indication of any surgery at this time. Ortho recommends PT/OT and weight bearing as tolerated. Full consult pending. LUE sling ordered. PRN analgesia for pain control. Assessment and Plan Neuro: Acute Metabolic Encephalopathy-improved h/o SDH with left shift s/p decompressive craniotomy, h/o cocaine abuse/Spych issues S/p Fall -S/p extubation, off sedations -AAO, but with periods of disorientation, very impulsive -Remains on precedex overnight due to increase anxiety/agitation/combativeness -Patient's family reported multiple psych issues such as ADHD and since chil dhood -seroquel adjusted, continue PRN xanax -Wean precededx gtt for RASS goal 0 to -1 -Mental Health/psych consulted -Reorientation as needed -Maintain sleep-wake cycle -As needed analgesia -Fall precaution -PT/OT consulted Cardiac: Atrial Fibrilation with RVR, h/o cardiomyopathy, HTN -Patient remains in Afib, but in rate control this am. VSS -Cardiology consulted, appreciate recommendations -2D echo pending -Continue BB and antihypertensive regimen -Blood pressure monitoring per protocol -Maintain SBP less than 160 -On Heparin SubQ Respiratory: Acute hypoxic respiratory failure, s/p tracheostomy with eventual decannulation, COPD -CCM consulted, appreciate recommendations -Intubated on 05/17 at OSH; 05/19 s/p extubation -A.m. ABG and CXR noted -On 2L NC this am -Continue O2 supplementation and wean as tolerated -SPO2 monitoring for SPO2 goal aboev 92% -Of note patient self decannulated on 05/05 Superior and Inferior Pubic Rami fractures Left Enthesophytes Fracture S/p Fall -Noted from Lt. Elbow X-ray and CT scan, see report for details -Ortho consulted, appreciate recommendations -Attending also discussed with Ortho, with no indication of any surgery at this time. -Ortho recommends PT/Jeanine dn weight bearing as tolerated. Full consult pending. -LUE sling ordered. -Given current Afib with RVR, will continue VTE proph for now, awaiting Cardio and Ortho recommendations. -PT/OT consulted -Fall precaution -PRN Analgesia for pain control GI: Moderate protein calorie malnutrition -S/p PEG tube placement, however now off -Patient removed Richter catheter that was in the PEG-tube stoma, dressing present -Patient passed bedside swallow, renal diet ordered -Speech also following -S/p paracentesis at [facility] on 05/06 with removal of 2.7 L : ESRD on HD, hyperkalemia -Nephrology consulted, appreciate recommendations -Continue HD per Nephro -Monitor intake and output -Renally dose medications -Avoid nephrotoxic medications -Trend BMP ID: Sepsis (POA) -Leukopenia, CXR showed left-sided effusion with associated opacity and mild right basilar atelectasis -COVID-19 PCR negative, MRSA PCR negative -Antibiotic therapy with cefepime -f/u blood culture -Monitor WBC and temperature curve GI/DVT Prophylaxis -PPI- pepcid -Heparin SubQ -SCDs to bilateral lower extremities while in bed The high probability of a clinically significant, sudden or life threatening deterioration of the [multi] system(s) required my full and direct attention, intervention and personal management. The aggregate critical care time was [60] minutes. This time is in addition to time spent performing reported procedures but includes the following: [x] Data Review and interpretation [x] Patient assessment and monitoring of vital signs [x] Documentation [x] Medication orders and management Disposition Plan: ICU Total Time Spent with Patient (Minutes): 60 History Interval history: Patient seen and examined at the bedside. Patient remains on precedex gtt due to increase agitation and combativeness overnight. Patient is awake and appropriate this am, on 2L NC, complaining of LE pain. In Afib on the monitor, HR in the 70-90s, VSS. Hospitalist Physical - Physical exam Narrative exam: General appearance: Present: no acute distress, well-nourished - EENT Eyes: Present: PERRL ENT: hearing intact - Neck Neck: Present: normal ROM - Respiratory Respiratory effort: normal Respiratory: bilateral: diminished - Cardiovascular Rhythm: irregularly irregular Heart Sounds: Present: S1 & S2 - Extremities Extremities: no ischemia, pulses intact, pulses symmetrical Peripheral Pulses: within normal limits - Abdominal General gastrointestinal: soft, non-distended, normal bowel sounds - Integumentary Integumentary: Present: warm, dry - Psychiatric Psychiatric: Calm and appropriate, cooperative, other (Impulsive at time) - Neurologic Neurologic: moves all extremities, other (AAO, but with periods of disor ientation and impulsiveness) - Allied Health Allied health notes reviewed: nursing, case management - Constitutional Vitals: Temp Pulse Resp BP Pulse Ox 98.1 F 97 H 24 85/50 87 05/21/22 08:00 05/21/22 10:19 05/21/22 10:00 05/21/22 10:19 05/21/22 10:00 Results - Labs CBC & Chem 7: 05/20/22 04:31 05/21/22 04:13 Labs: Laboratory Last Values WBC 6.2 K/mm3 (4.5-11.0) 05/20/22 04:31 RBC 2.72 M/mm3 (3.65-5.03) L 05/20/22 04:31 Hgb 7.8 gm/dl (11.8-15.2) L 05/20/22 04:31 Hct 24.1 % (35.5-45.6) L 05/20/22 04:31 MCV 89 fl (84-94) 05/20/22 04:31 MCH 29 pg (28-32) 05/20/22 04:31 MCHC 32 % (32-34) 05/20/22 04:31 RDW 20.9 % (13.2-15.2) H 05/20/22 04:31 Plt Count 172 K/mm3 (140-440) 05/20/22 04:31 Lymph % (Auto) 16.2 % (13.4-35.0) 05/18/22 04:20 [place] % (Auto) 15.1 % (0.0-7.3) H 05/18/22 04:20 Eos % (Auto) 3.1 % (0.0-4.3) 05/18/22 04:20 Baso % (Auto) 1.1 % (0.0-1.8) 05/18/22 04:20 Lymph # (Auto) 0.5 K/mm3 (1.2-5.4) L 05/18/22 04:20 [place] # (Auto) 0.5 K/mm3 (0.0-0.8) 05/18/22 04:20 Eos # (Auto) 0.1 K/mm3 (0.0-0.4) 05/18/22 04:20 Baso # (Auto) 0.0 K/mm3 (0.0-0.1) 05/18/22 04:20 Seg Neutrophils % 64.5 % (40.0-70.0) 05/18/22 04:20 Seg Neutrophils # 2.0 K/mm3 (1.8-7.7) 05/18/22 04:20 ABG pH 7.367 pH Units (7.350-7.450) 05/18/22 06:00 ABG pCO2 44.9 mm Hg 05/18/22 06:00 ABG pO2 158.7 mm Hg (80.0-90.0) H 05/18/22 06:00 ABG HCO3 25.2 mmol/L (20.0-26.0) 05/18/22 06:00 ABG O2 Saturation 98.9 % (95.0-99.0) 05/18/22 06:00 ABG O2 Content 13.0 (0.0-44) 05/18/22 06:00 ABG Base Excess -0.3 mmol/L (-2.0-3.0) 05/18/22 06:00 ABG Hemoglobin 9.4 gm/dl (14.0-18.0) L 05/18/22 06:00 ABG Carboxyhemoglobin 2.3 % (0.0-5.0) 05/18/22 06:00 ABG Methemoglobin 0.5 % (0.0-1.5) 05/18/22 06:00 Oxyhemoglobin 96.2 % (95.0-99.0) 05/18/22 06:00 FiO2 40 % 05/18/22 06:00 Sodium 140 mmol/L (137-145) 05/21/22 04:13 Potassium 4.2 mmol/L (3.6-5.0) D 05/21/22 04:13 Chloride 97.7 mmol/L (98-107) L 05/21/22 04:13 Carbon Dioxide 28 mmol/L (22-30) 05/21/22 04:13 Anion Gap 19 mmol/L 05/21/22 04:13 BUN 37 mg/dL (9-20) H 05/21/22 04:13 Creatinine 4.9 mg/dL (0.8-1.3) H 05/21/22 04:13 Estimated GFR 12 ml/min 05/21/22 04:13 BUN/Creatinine Ratio 8 % 05/21/22 04:13 Glucose 84 mg/dL (75-100) 05/21/22 04:13 POC Glucose 111 mg/dL (70-105) H 05/21/22 07:50 Calcium 8.0 mg/dL (8.4-10.2) L 05/21/22 04:13 Phosphorus 3.80 mg/dL (2.5-4.5) D 05/21/22 04:13 Magnesium 1.80 mg/dL (1.7-2.3) 05/21/22 04:13 Total Bilirubin 0.40 mg/dL (0.1-1.2) 05/17/22 14:28 AST 7 units/L (5-40) 05/17/22 14:28 ALT < 5 units/L (7-56) L 05/17/22 14:28 Alkaline Phosphatase 78 units/L (35-129) 05/17/22 14:28 Total Protein 6.1 g/dL (6.3-8.2) L 05/17/22 14:28 Albumin 2.9 g/dL (3.9-5) L 05/17/22 14:28 Albumin/Globulin Ratio 0.9 % 05/17/22 14:28 Nasal Screen MRSA (PCR) Negative (Negative) 05/18/22 08:30 Coronavirus (PCR) Negative (Negative) 05/18/22 07:57 Hepatitis A IgM Ab Non-reactive (NonReactive) 05/18/22 18:10 Hep Bs Antigen Non-reactive (Negative) 05/18/22 18:10 Hep B Core IgM Ab Non-reactive (NonReactive) 05/18/22 18:10 Hepatitis C Antibody Reactive (NonReactive) A 05/18/22 18:10 Microbiology: Microbiology 05/18/22 16:38 Tracheal Aspirate Sputum Culture - Final Active Medications - Current Medications Current Medications: Generic Name Dose Route Start Last Admin Trade Name Freq PRN Reason Stop Dose Admin Acetaminophen 650 mg 05/17/22 14:26 Acetaminophen 325 Mg Tab PO Q4H PRN Pain MILD(1-3)/Fever >100.5/DYER Albumin Human 25 gm 05/18/22 09:10 Albumin Human 25% (25 Gm/100 Ml) Inj IV TOM PRN Hypotension Albuterol 2.5 mg 05/18/22 06:02 Albuterol 2.5 Mg/3 Ml Nebu IH Q3HRT PRN Wheezing Alprazolam 0.5 mg 05/20/22 08:34 05/20/22 14:43 Alprazolam 0.5 Mg Tab PO 0.5 mg BID PRN Administration Anxiety Aspirin 81 mg 05/21/22 10:00 05/21/22 09:32 Aspirin Ec 81 Mg Tab PO 81 mg QDAY DAQUAN Administration Dextrose 50 ml 05/18/22 15:00 Dextrose 50% In Water (25gm) 50 Ml Syringe IV Q30MIN PRN Hypoglycemia Protocol Diphenhydramine HCl 25 mg 05/20/22 13:30 05/20/22 13:30 Diphenhydramine 25 Mg Cap PO 25 mg Q6H PRN Administration Itching Epoetin Jacinto-epbx 10,000 unit 05/18/22 09:10 05/20/22 17:25 Epoetin Jacinto-Epbx 10,000 Unit/1 Ml Vial IV 10,000 unit TOM PRN Administration hemodialysis Famotidine 20 mg 05/20/22 10:00 05/21/22 09:32 Famotidine 20 Mg Tab PO 20 mg QDAY DAQUAN Administration Heparin Sodium (Porcine) 5,000 unit 05/17/22 22:00 05/21/22 09:31 Heparin 5,000 Unit/1 Ml Vial SUB-Q 5,000 unit Q12HR DAQUAN Administration Dexmedetomidine HCl 400 mcg/ 104 mls @ 3.968 mls/hr 05/17/22 16:00 05/21/22 10:10 Sodium Chloride IV 0.8 mcg/kg/hr TITRATE DAQUAN 15.87 mls/hr Administration Protocol 0.2 MCG/KG/HR Sodium Chloride 100 mls @ 999 mls/hr 05/18/22 09:10 Nacl 0.9% IV TOM PRN Hypotension Cefepime HCl 1 gm in 100 mls @ 200 mls/hr 05/19/22 11:00 05/21/22 10:27 Cefepime/Ns 1 Gm/100 Ml IV 200 mls/hr Q24H DAQAUN Administration Protocol Losartan Potassium 100 mg 05/20/22 10:00 05/21/22 10:19 Losartan 50 Mg Tab PO Not Given QDAY DAQUAN Metoclopramide HCl 5 mg 05/18/22 09:00 05/19/22 07:53 Metoclopramide 10 Mg/2 Ml Inj IV 5 mg Q6H PRN Administration Nausea And Vomiting Metoprolol Tartrate 100 mg 05/19/22 17:00 05/21/22 09:32 Metoprolol Tartrate 100 Mg Tab PO 100 mg BID DAQUAN Administration Metoprolol Tartrate 2.5 mg 05/19/22 20:00 05/20/22 14:43 Metoprolol Tartrate 5 Mg/5 Ml Inj IV 2.5 mg Q6HR PRN Administration tachycardia Morphine Sulfate 2 mg 05/17/22 14:26 05/21/22 09:30 Morphine 2 Mg/1 Ml Inj IV 2 mg Q4H PRN Administration Pain, Moderate (4-6) Nifedipine 60 mg 05/20/22 10:00 05/21/22 10:24 Nifedipine Xl 60 Mg Tab PO Not Given BID DAQUAN Ondansetron HCl 4 mg 05/17/22 14:26 05/20/22 07:55 Ondansetron 4 Mg/2 Ml Inj IV 4 mg Q3H PRN Administration Nausea And Vomiting Oxycodone/Acetaminophen 1 tab 05/21/22 10:35 Oxycodone /Acetaminophen 5-325mg Tab PO Q6H PRN Pain, Moderate (4-6) Quetiapine Fumarate 50 mg 05/21/22 10:00 05/21/22 09:49 Quetiapine 25 Mg Tab PO 50 mg QDAY DAQUAN Administration Quetiapine Fumarate 100 mg 05/21/22 22:00 Quetiapine 25 Mg Tab PO QHS DAQUAN Sodium Chloride 10 ml 05/17/22 22:00 05/21/22 09:33 Sodium Chloride 0.9% 10 Ml Flush Syringe IV 10 ml BID DAQUAN Administration Sodium Chloride 10 ml 05/17/22 14:26 Sodium Chloride 0.9% 10 Ml Flush Syringe IV PRN PRN LINE FLUSH Nutrition/Malnutrition Assess - Dietary Evaluation Nutrition/Malnutrition Findings: Nutrition Notes Start: 05/18/22 14:16 Freq: Status: Active Protocol: Document 05/20/22 12:37 LUCEOR (Rec: 05/20/22 13:15 LUCERO [id number]) Nutrition Notes Initial or Follow up Reassessment Current Diagnosis CKD (stage V CKD),COPD, Hypertension,Malnutrition Other Pertinent Diagnosis Metabolic Encephalopathy, L- Elbow+Pelvic Fractures s/p Fall, ESRD+HD, Atria Current Diet Renal Diet (since D 05/19), D Suppl (since L 05/20). Labs/Tests 05/20: K 5.4, Cl 96.5, BUN 53, Crea 6.7, Glu 115, Ca 8.1, Phos 7.9. Pertinent Medications 05/20: Nutritionally unremarkable. 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 No body weight change reported in 2 days. Weight Status Appropriate Subjective/Other Information RD consult for routine F/U on TF tolerance/continuation assessment. TF was discontinued and Pt advanced to PO diet, No reports available on Pt's PO intake of meals at the time, will assess at F/U. prescribed dietary supplements, I will keep the prescription to compensate for possible poor or insufficient PO intake of meals during LOS . [employer] SUPERVISOR note on 05/20/22 11:00: Received a repeat order to assess swallowing function. Spoke with the patient's nurse who was aware of the assessment which was conducted the previous day. Patient is safe for a regular diet. Will discharge the order. - END OF NOTE. Pt is on Room Air, O2 saturation @ 100%, according to Physical Assessment History notes. Pt was extubated on 05/19, well tolerated room air directly, according to Progress notes. Pt experienced a fall on 05/19 with subsequent L-elbow and pelvic fractures, according to Progress notes. Pt presents R-hand abrasions and neck surgical wound as signs of concern for skin risk at the time, according to Physical Assessment History notes. Percent of energy/protein needs met: Prescribed Renal Diet provides for energy/protein needs (2, 072 Kcal/77 g) during LOS; additionally, Dietary Supplements will compensate for possible poor or insufficient PO intake of meals with 850 Kcal and 38 g of protein. Burn Absent Trauma Present GI Symptoms None Food Allergy No Skin Integrity/Comment R-hand abrasions+neck surgical woun Minimum of two criteria No Fluid Accumulation N/A Reduced Sole Cementer Strength N/A (non-severe) Protein-Calorie Malnutrition N\A #1 Nutrition Diagnosis Swallowing difficulty Comments: TF was discontinued and Pt advanced to PO diet on 05/19. Diagnosis Progress(for reassessment Resolved documentation) Is patient on ventilator? No Is Patient Ambulatory and/or Out of Bed Yes [facility] [ 2215.850 [id number]] Calculation Used for Recommendations [facility]a Additional Notes Protein: >1.2 g/Kg ABW; >92 g/ day. Fluids: 1 ml/Kcal, or as per MD. Nutrition Intervention Change Diet Order: Continue Renal Diet as tolerated. Nutrition Support: Discontinued. Add Supplement/Snack (indicate name/kcal Continue 8 fl oz Nepro w/ /protein ) CARBSTEADY; BID. Provides kCal: 850 Provides Protein (gm) 38 Goal #1 Compensate, through dietary supplementation, for possible poor or insufficient PO intake of meals during LOS. Goal #2 Adjust the dietary intervention to better serve Pt's needs and clinical conditions during LOS. Follow-Up By: 05/27/22 Additional Comments Continue monitoring food tolerance, %PO intake of meals , dietary supplements, and BM. <SARAH AVITIA - Last Filed: 05/21/22 19:44> Assessment and Plan Assessment and plan: I saw and evaluated the patient. I agree with the findings and the plan of care as documented in the Nurse Practitioner's~note, with the following corrections and additions. Hospitalist Physical - Constitutional Vitals: Temp Pulse Resp BP Pulse Ox 100.7 F H 120 H 17 91/67 93 05/21/22 19:31 05/21/22 18:00 05/21/22 18:00 05/21/22 18:00 05/21/22 19:16 Results - Labs CBC & Chem 7: 05/20/22 04:31 05/21/22 04:13 Labs: Laboratory Last Values WBC 6.2 K/mm3 (4.5-11.0) 05/20/22 04:31 RBC 2.72 M/mm3 (3.65-5.03) L 05/20/22 04:31 Hgb 7.8 gm/dl (11.8-15.2) L 05/20/22 04:31 Hct 24.1 % (35.5-45.6) L 05/20/22 04:31 MCV 89 fl (84-94) 05/20/22 04:31 MCH 29 pg (28-32) 05/20/22 04:31 MCHC 32 % (32-34) 05/20/22 04:31 RDW 20.9 % (13.2-15.2) H 05/20/22 04:31 Plt Count 172 K/mm3 (140-440) 05/20/22 04:31 Lymph % (Auto) 16.2 % (13.4-35.0) 05/18/22 04:20 [place] % (Auto) 15.1 % (0.0-7.3) H 05/18/22 04:20 Eos % (Auto) 3.1 % (0.0-4.3) 05/18/22 04:20 Baso % (Auto) 1.1 % (0.0-1.8) 05/18/22 04:20 Lymph # (Auto) 0.5 K/mm3 (1.2-5.4) L 05/18/22 04:20 [place] # (Auto) 0.5 K/mm3 (0.0-0.8) 05/18/22 04:20 Eos # (Auto) 0.1 K/mm3 (0.0-0.4) 05/18/22 04:20 Baso # (Auto) 0.0 K/mm3 (0.0-0.1) 05/18/22 04:20 Seg Neutrophils % 64.5 % (40.0-70.0) 05/18/22 04:20 Seg Neutrophils # 2.0 K/mm3 (1.8-7.7) 05/18/22 04:20 ABG pH 7.367 pH Units (7.350-7.450) 05/18/22 06:00 ABG pCO2 44.9 mm Hg 05/18/22 06:00 ABG pO2 158.7 mm Hg (80.0-90.0) H 05/18/22 06:00 ABG HCO3 25.2 mmol/L (20.0-26.0) 05/18/22 06:00 ABG O2 Saturation 98.9 % (95.0-99.0) 05/18/22 06:00 ABG O2 Content 13.0 (0.0-44) 05/18/22 06:00 ABG Base Excess -0.3 mmol/L (-2.0-3.0) 05/18/22 06:00 ABG Hemoglobin 9.4 gm/dl (14.0-18.0) L 05/18/22 06:00 ABG Carboxyhemoglobin 2.3 % (0.0-5.0) 05/18/22 06:00 ABG Methemoglobin 0.5 % (0.0-1.5) 05/18/22 06:00 Oxyhemoglobin 96.2 % (95.0-99.0) 05/18/22 06:00 FiO2 40 % 05/18/22 06:00 Sodium 140 mmol/L (137-145) 05/21/22 04:13 Potassium 4.2 mmol/L (3.6-5.0) D 05/21/22 04:13 Chloride 97.7 mmol/L (98-107) L 05/21/22 04:13 Carbon Dioxide 28 mmol/L (22-30) 05/21/22 04:13 Anion Gap 19 mmol/L 05/21/22 04:13 BUN 37 mg/dL (9-20) H 05/21/22 04:13 Creatinine 4.9 mg/dL (0.8-1.3) H 05/21/22 04:13 Estimated GFR 12 ml/min 05/21/22 04:13 BUN/Creatinine Ratio 8 % 05/21/22 04:13 Glucose 84 mg/dL (75-100) 05/21/22 04:13 POC Glucose 116 mg/dL (70-105) H 05/21/22 17:00 Calcium 8.0 mg/dL (8.4-10.2) L 05/21/22 04:13 Phosphorus 3.80 mg/dL (2.5-4.5) D 05/21/22 04:13 Magnesium 1.80 mg/dL (1.7-2.3) 05/21/22 04:13 Total Bilirubin 0.40 mg/dL (0.1-1.2) 05/17/22 14:28 AST 7 units/L (5-40) 05/17/22 14:28 ALT < 5 units/L (7-56) L 05/17/22 14:28 Alkaline Phosphatase 78 units/L (35-129) 05/17/22 14:28 Total Protein 6.1 g/dL (6.3-8.2) L 05/17/22 14:28 Albumin 2.9 g/dL (3.9-5) L 05/17/22 14:28 Albumin/Globulin Ratio 0.9 % 05/17/22 14:28 Nasal Screen MRSA (PCR) Negative (Negative) 05/18/22 08:30 Coronavirus (PCR) Negative (Negative) 05/18/22 07:57 Hepatitis A IgM Ab Non-reactive (NonReactive) 05/18/22 18:10 Hep Bs Antigen Non-reactive (Negative) 05/18/22 18:10 Hep B Core IgM Ab Non-reactive (NonReactive) 05/18/22 18:10 Hepatitis C Antibody Reactive (NonReactive) A 05/18/22 18:10 Microbiology: Microbiology 05/18/22 16:38 Tracheal Aspirate Sputum Culture - Final Active Medications - Current Medications Current Medications: Generic Name Dose Route Start Last Admin Trade Name Freq PRN Reason Stop Dose Admin Acetaminophen 650 mg 05/17/22 14:26 Acetaminophen 325 Mg Tab PO Q4H PRN Pain MILD(1-3)/Fever >100.5/DYER Albumin Human 25 gm 05/18/22 09:10 Albumin Human 25% (25 Gm/100 Ml) Inj IV TOM PRN Hypotension Albuterol 2.5 mg 05/18/22 06:02 Albuterol 2.5 Mg/3 Ml Nebu IH Q3HRT PRN Wheezing Alprazolam 0.5 mg 05/20/22 08:34 05/20/22 14:43 Alprazolam 0.5 Mg Tab PO 0.5 mg BID PRN Administration Anxiety Aspirin 81 mg 05/21/22 10:00 05/21/22 09:32 Aspirin Ec 81 Mg Tab PO 81 mg QDAY DAQUAN Administration Dextrose 50 ml 05/18/22 15:00 Dextrose 50% In Water (25gm) 50 Ml Syringe IV Q30MIN PRN Hypoglycemia Protocol Diphenhydramine HCl 25 mg 05/20/22 13:30 05/20/22 13:30 Diphenhydramine 25 Mg Cap PO 25 mg Q6H PRN Administration Itching Epoetin Jacinto-epbx 10,000 unit 05/18/22 09:10 05/20/22 17:25 Epoetin Jacinto-Epbx 10,000 Unit/1 Ml Vial IV 10,000 unit TOM PRN Administration hemodialysis Famotidine 20 mg 05/20/22 10:00 05/21/22 09:32 Famotidine 20 Mg Tab PO 20 mg QDAY [facility] Administration Heparin Sodium (Porcine) 5,000 unit 05/17/22 22:00 05/21/22 09:31 Heparin 5,000 Unit/1 Ml Vial SUB-Q 5,000 unit Q12HR [facility] Administration Hydromorphone HCl 0.5 mg 05/21/22 17:00 Hydromorphone 2 Mg/1 Ml Inj IV ONCE [facility] Dexmedetomidine HCl 400 mcg/ 104 mls @ 3.968 mls/hr 05/17/22 16:00 05/21/22 15:03 Sodium Chloride IV 0.2 mcg/kg/hr TITRATE DAQUAN 3.968 mls/hr Titration Protocol 0.2 MCG/KG/HR Sodium Chloride 100 mls @ 999 mls/hr 05/18/22 09:10 Nacl 0.9% IV TOM PRN Hypotension Cefepime HCl 1 gm in 100 mls @ 200 mls/hr 05/19/22 11:00 05/21/22 10:57 Cefepime/Ns 1 Gm/100 Ml IV Infused Q24H [facility] Infusion Protocol Losartan Potassium 100 mg 05/20/22 10:00 05/21/22 10:19 Losartan 50 Mg Tab PO Not Given QDAY [facility] Metoclopramide HCl 5 mg 05/18/22 09:00 05/19/22 07:53 Metoclopramide 10 Mg/2 Ml Inj IV 5 mg Q6H PRN Administration Nausea And Vomiting Metoprolol Tartrate 2.5 mg 05/19/22 20:00 05/20/22 14:43 Metoprolol Tartrate 5 Mg/5 Ml Inj IV 2.5 mg Q6HR PRN Administration tachycardia Metoprolol Tartrate 50 mg 05/21/22 19:08 Metoprolol Tartrate 100 Mg Tab PO BID [facility] Morphine Sulfate 2 mg 05/17/22 14:26 05/21/22 14:52 Morphine 2 Mg/1 Ml Inj IV 2 mg Q4H PRN Administration Pain, Moderate (4-6) Nifedipine 60 mg 05/20/22 10:00 05/21/22 10:24 Nifedipine Xl 60 Mg Tab PO Not Given BID [facility] Ondansetron HCl 4 mg 05/17/22 14:26 05/20/22 07:55 Ondansetron 4 Mg/2 Ml Inj IV 4 mg Q3H PRN Administration Nausea And Vomiting Oxycodone/Acetaminophen 1 tab 05/21/22 11:00 05/21/22 12:18 Oxycodone /Acetaminophen 5-325mg Tab PO 1 tab Q6H PRN Administration Pain, Moderate (4-6) Quetiapine Fumarate 50 mg 05/21/22 10:00 05/21/22 09:49 Quetiapine 25 Mg Tab PO 50 mg QDAY DAQUAN Administration Quetiapine Fumarate 100 mg 05/21/22 22:00 Quetiapine 25 Mg Tab PO QHS DAQUAN Sodium Chloride 10 ml 05/17/22 22:00 05/21/22 09:33 Sodium Chloride 0.9% 10 Ml Flush Syringe IV 10 ml BID DAQUAN Administration Sodium Chloride 10 ml 05/17/22 14:26 Sodium Chloride 0.9% 10 Ml Flush Syringe IV PRN PRN LINE FLUSH Nutrition/Malnutrition Assess - Dietary Evaluation Nutrition/Malnutrition Findings: Nutrition Notes Start: 05/18/22 14:16 Freq: Status: Active Protocol: Document 05/20/22 12:37 LUCERO (Rec: 05/20/22 13:15 [email or web address] [id number]) Nutrition Notes Initial or Follow up Reassessment Current Diagnosis CKD (stage V CKD),COPD, Hypertension,Malnutrition Other Pertinent Diagnosis Metabolic Encephalopathy, L- Elbow+Pelvic Fractures s/p Fall, ESRD+HD, Atria Current Diet Renal Diet (since D 05/19), D Suppl (since L 05/20). Labs/Tests 05/20: K 5.4, Cl 96.5, BUN 53, Crea 6.7, Glu 115, Ca 8.1, Phos 7.9. Pertinent Medications 05/20: Nutritionally unremarkable. 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 No body weight change reported in 2 days. Weight Status Appropriate Subjective/Other Information RD consult for routine F/U on TF tolerance/continuation assessment. TF was discontinued and Pt advanced to PO diet, No reports available on Pt's PO intake of meals at the time, will assess at F/U. MD prescribed dietary supplements, I will keep the prescription to compensate for possible poor or insufficient PO intake of meals during LOS . [employer] SUPER[employer]OR note on 05/20/22 11:00: Received a repeat order to assess swallowing function. Spoke with the patient's nurse who was aware of the assessment which was conducted the previous day. Patient is safe for a regular diet. Will discharge the order. - END OF NOTE. Pt is on Room Air, O2 saturation @ 100%, according to Physical Assessment History notes. Pt was extubated on 05/19, well tolerated room air directly, according to Progress notes. Pt experienced a fall on 05/19 with subsequent L-elbow and pelvic fractures, according to Progress notes. Pt presents R-hand abrasions and neck surgical wound as signs of concern for skin risk at the time, according to Physical Assessment History notes. Percent of energy/protein needs met: Prescribed Renal Diet provides for energy/protein needs (2, 072 Kcal/77 g) during LOS; additionally, Dietary Supplements will compensate for possible poor or insufficient PO intake of meals with 850 Kcal and 38 g of protein. Burn Absent Trauma Present GI Symptoms None Food Allergy No Skin Integrity/Comment R-hand abrasions+neck surgical woun Minimum of two criteria No Fluid Accumulation N/A Reduced Sole Cementer Strength N/A (non-severe) Protein-Calorie Malnutrition N\A #1 Nutrition Diagnosis Swallowing difficulty Comments: TF was discontinued and Pt advanced to PO diet on 05/19. Diagnosis Progress(for reassessment Resolved documentation) Is patient on ventilator? No Is Patient Ambulatory and/or Out of Bed Yes REE-([facility]-ambulatory/OOB) [ 2215.850 [id number]] Calculation Used for Recommendations [facility] Additional Notes Protein: >1.2 g/Kg ABW; >92 g/ day. Fluids: 1 ml/Kcal, or as per MD. Nutrition Intervention Change Diet Order: Continue Renal Diet as tolerated. Nutrition Support: Discontinued. Add Supplement/Snack (indicate name/kcal Continue 8 fl oz Nepro w/ /protein ) CARBSTEADY; BID. Provides kCal: 850 Provides Protein (gm) 38 Goal #1 Compensate, through dietary supplementation, for possible poor or insufficient PO intake of meals during LOS. Goal #2 Adjust the dietary intervention to better serve Pt's needs and clinical conditions during LOS. Follow-Up By: 05/27/22 Additional Comments Continue monitoring food tolerance, %PO intake of meals , dietary supplements, and BM.
--- NOTE | 2022-05-21 12:14 | Progress Note ---
Assessment and Plan - Patient Problems (1) Rapid atrial fibrillation Current Visit: Yes Status: Acute Plan to address problem: 56-year-old man status post craniotomy for traumatic subdural hematoma, recovering in a long-term acute care facility, transferred to the hospital with respiratory distress. He has chronic atrial fibrillation, with increased ventricular rate associated with his acute respiratory decompensated. Echocardiogram shows left ventricular systolic ejection fraction 40 to 45%, with severe sclerosis of both aortic and mitral valves, and marked dilatation of both left and right atria. We will continue rate control strategy of atrial fibrillation. Following his recent craniotomy, and with ongoing anemia, he is not a candidate for oral anticoagulation at this time. Subjective Date of service: 05/21/22 Principal diagnosis: Respiratory failure Interval history: Patient is comfortable no acute distress. On security monitor, there is well- controlled atrial fibrillation with heart rates in the 90s. Echocardiogram shows left ventricular systolic ejection fraction 40 to 45%, with severe sclerosis of both aortic and mitral valves, and marked dilatation of both left and right atria. Objective Vital Signs Temp Pulse Pulse Resp Resp BP Pulse Ox 05/21/22 12:00 98.2 F 98 H 96 H 18 111/75 99 05/21/22 11:43 96 H 05/21/22 11:00 85 19 101/65 05/21/22 10:19 97 H 85/50 05/21/22 10:00 85 17 24 103/70 87 05/21/22 09:32 73 05/21/22 09:30 19 05/21/22 09:00 86 21 114/75 92 05/21/22 08:20 99 05/21/22 08:00 98.1 F 79 80 21 80/54 95 05/21/22 07:43 79 05/21/22 07:00 78 15 95/56 100 05/21/22 06:00 83 12 102/60 97 05/21/22 05:00 85 16 96/59 98 05/21/22 04:00 99 F 79 18 92/61 92 05/21/22 03:00 82 18 95/67 99 05/21/22 02:00 86 18 111/65 99 05/21/22 01:00 86 18 102/72 05/21/22 00:00 98 F 90 15 106/77 92 05/20/22 23:00 89 20 115/82 95 05/20/22 22:00 94 H 16 123/85 05/20/22 21:01 111 H 135/85 05/20/22 21:00 105 H 16 135/85 99 05/20/22 20:14 103 H 19 140/95 91 05/20/22 20:00 98.3 F 115 H 19 140/95 66 L 05/20/22 19:19 99 05/20/22 19:00 98 H 18 123/100 100 05/20/22 18:15 110 H 17 133/93 92 05/20/22 18:00 107 H 16 137/92 99 05/20/22 17:55 97.9 F 95 H 19 128/88 05/20/22 17:45 104 H 15 128/88 96 05/20/22 17:34 91 H 137/90 05/20/22 17:30 114 H 16 135/91 100 05/20/22 17:15 93 H 13 136/100 100 05/20/22 17:00 84 15 139/91 100 05/20/22 16:45 77 17 123/95 96 05/20/22 16:30 91 H 14 138/91 100 05/20/22 16:15 94 H 14 127/86 100 05/20/22 16:00 97.8 F 100 H 17 121/92 100 05/20/22 15:45 65 13 118/89 75 L 05/20/22 15:30 96 H 12 128/89 97 05/20/22 15:15 84 15 115/93 100 05/20/22 15:00 116 H 21 121/96 100 05/20/22 14:46 108 H 22 132/97 86 05/20/22 14:45 109 H 132/97 05/20/22 14:43 130 H 05/20/22 14:34 122 H 125/103 05/20/22 14:31 98.4 F 119 H 19 144/102 05/20/22 14:30 131 H 20 140/104 96 05/20/22 14:16 132 H 26 H 140/104 98 05/20/22 14:00 138 H 21 140/104 97 05/20/22 13:46 126 H 18 141/103 95 05/20/22 13:30 113 H 25 H 141/103 96 05/20/22 13:16 135 H 16 141/103 97 05/20/22 13:00 134 H 19 141/103 94 05/20/22 12:46 112 H 20 148/108 99 05/20/22 12:30 125 H 13 148/108 96 05/20/22 12:16 125 H 26 H 148/108 94 Pulse Ox 05/21/22 12:00 05/21/22 11:43 05/21/22 11:00 05/21/22 10:19 05/21/22 10:00 05/21/22 09:32 05/21/22 09:30 05/21/22 09:00 05/21/22 08:20 05/21/22 08:00 05/21/22 07:43 05/21/22 07:00 05/21/22 06:00 05/21/22 05:00 05/21/22 04:00 05/21/22 03:00 05/21/22 02:00 05/21/22 01:00 05/21/22 00:00 05/20/22 23:00 05/20/22 22:00 05/20/22 21:01 05/20/22 21:00 05/20/22 20:14 05/20/22 20:00 05/20/22 19:19 05/20/22 19:00 05/20/22 18:15 05/20/22 18:00 05/20/22 17:55 100 05/20/22 17:45 05/20/22 17:34 05/20/22 17:30 05/20/22 17:15 05/20/22 17:00 05/20/22 16:45 05/20/22 16:30 05/20/22 16:15 05/20/22 16:00 05/20/22 15:45 05/20/22 15:30 05/20/22 15:15 05/20/22 15:00 05/20/22 14:46 05/20/22 14:45 05/20/22 14:43 05/20/22 14:34 05/20/22 14:31 98 05/20/22 14:30 05/20/22 14:16 05/20/22 14:00 05/20/22 13:46 05/20/22 13:30 05/20/22 13:16 05/20/22 13:00 05/20/22 12:46 05/20/22 12:30 05/20/22 12:16 - Physical Examination General: No Apparent Distress HEENT: Positive: PERRL Neck: Positive: neck supple Cardiac: Positive: irregularly irregular Lungs: Positive: Decreased Breath Sounds Neuro: Positive: Weakness (Generalized lethargy) Abdomen: Positive: Soft Skin: Positive: Clear Extremities: Absent: edema - Labs and Meds Comprehensive Metabolic Panel 05/21/22 Range/Units 04:13 Sodium 140 (137-145) mmol/L Potassium 4.2 D (3.6-5.0) mmol/L Chloride 97.7 L (98-107) mmol/L Carbon Dioxide 28 (22-30) mmol/L BUN 37 H (9-20) mg/dL Creatinine 4.9 H (0.8-1.3) mg/dL Glucose 84 (75-100) mg/dL Calcium 8.0 L (8.4-10.2) mg/dL - Allied health notes Allied health notes reviewed: nursing
--- NOTE | 2022-05-21 12:38 | Progress Note ---
Assessment and Plan Acute hypoxemic respiratory failure on mechanical ventilatory support Acute toxic metabolic encephalopathy Left subdural hematoma s/p evacuation End-stage renal disease on dialysis Right hip fracture Hypertension COPD CMOP H/O Cocaine abuse Oropharyngeal dysphagia Hyponatremia Anemia that is normocytic likely of chronic disease - wean Precedex re: clinical response - uptitrate Seroquel to aid weaning off Precedex - conservative management for hip fracture - orthopedic consult placed earlier - pulmonary edema pattern should improve with extra UF sessions as tolerated - continue local wound care to trach stoma - continue to wean oxygen for O2 sat's > 90% - continue bronchodilators with pulmonary hygiene per RT -aspiration precautions, HOB >40 - continue to wean per pulmonary driven protocols - continue HD/UF per nephrology prescription for toxin and volume clearance - prn analgesia per pain score - follow clinically re: fever curves / trend WBC - Avoid delirium (no benzodiazepines if they can be avoided) - Maintain sleep-wake cycle - enteral nutrition at goal rate as tolerated - accucheck's with glycemic control per SSI for target blood glucose goal of < 180 mg/dL; Avoid hypoglycemia - VTE prophylaxis with Heparin - stress ulcer prophylaxis with Pantoprazole - mobility protocols for pressure ulcer prophylaxis - fall precautions - wound care management per RN / WCT - increase ambulation; PT/OT as tolerated - Supportive transfusions to keep Hb>7g/dL - CXR's and ABG's prn - continue to monitor neurologic function - continue chronic home medications as indicated - continue all supportive care ........ re-evaluate in am & prn Subjective Date of service: 05/21/22 Principal diagnosis: AHRF; AMS; Left SDH; ESRD on dialysis; COPD; H/O Cocaine abuse Interval history: CC:Patient is being seen today for Acute hypoxemic respiratory failure; AMS; Left SDH; ESRD on dialysis; COPD; H/O Cocaine abuse Subjective: Seen and examined at bedside; 24hr events reviewed; nursing and resp iratory care staff consulted; no adverse overnight events reported to me; resting peacefully in bed;doing well post extubation; remains on Precedex drip re: agitation / delirium; s/p fall prior with R. hip fracture Objective Vital Signs - 12hr 05/21/22 05/21/22 05/21/22 01:00 02:00 03:00 Temperature Pulse Rate 86 86 82 Pulse Rate [ From Monitor] Respiratory 18 18 18 Rate Respiratory Rate [Hip] Blood Pressure 102/72 111/65 95/67 O2 Sat by Pulse 99 99 Oximetry 05/21/22 05/21/22 05/21/22 04:00 05:00 06:00 Temperature 99 F Pulse Rate 79 85 83 Pulse Rate [ From Monitor] Respiratory 18 16 12 Rate Respiratory Rate [Hip] Blood Pressure 92/61 96/59 102/60 O2 Sat by Pulse 92 98 97 Oximetry 05/21/22 05/21/22 05/21/22 07:00 07:43 08:00 Temperature 98.1 F Pulse Rate 78 79 79 Pulse Rate [ 80 From Monitor] Respiratory 15 21 Rate Respiratory Rate [Hip] Blood Pressure 95/56 80/54 O2 Sat by Pulse 100 95 Oximetry 05/21/22 05/21/22 05/21/22 08:20 09:00 09:30 Temperature Pulse Rate 86 Pulse Rate [ From Monitor] Respiratory 21 19 Rate Respiratory Rate [Hip] Blood Pressure 114/75 O2 Sat by Pulse 99 92 Oximetry 05/21/22 05/21/22 05/21/22 09:32 10:00 10:19 Temperature Pulse Rate 73 85 97 H Pulse Rate [ From Monitor] Respiratory 17 Rate Respiratory 24 Rate [Hip] Blood Pressure 103/70 85/50 O2 Sat by Pulse 87 Oximetry 05/21/22 05/21/22 05/21/22 11:00 11:43 12:00 Temperature 98.2 F Pulse Rate 85 96 H 98 H Pulse Rate [ 96 H From Monitor] Respiratory 19 18 Rate Respiratory Rate [Hip] Blood Pressure 101/65 111/75 O2 Sat by Pulse 99 Oximetry Constitutional: no acute distress, asleep, other (Sedated, on mechanical ventilation.) Eyes: non-icteric ENT: oropharynx moist Neck: supple, no JVD Ascultation: Bilateral: rales Cardiovascular: irregular rhythm Gastrointestinal: hypoactive bowel sounds, other (slightly distended.) Integumentary: normal Extremities: no cyanosis, no edema Neurologic: unable to assess, other (Patient sedated , intubated and on mechanical ventilation.) Psychiatric: other (Can not assess. Patient sedated and on mechanical ventilation.) CBC and BMP: 05/22/22 03:59 05/22/22 03:59 ABG, PT/INR, D-dimer: ABG ABG pH 7.367 pH Units (7.350-7.450) 05/18/22 06:00 ABG pCO2 44.9 mm Hg 05/18/22 06:00 ABG pO2 158.7 mm Hg (80.0-90.0) H 05/18/22 06:00 ABG O2 Saturation 98.9 % (95.0-99.0) 05/18/22 06:00 Abnormal lab findings: Abnormal Labs 05/17/22 05/17/22 05/17/22 14:26 14:28 15:10 WBC 4.0 L RBC 2.86 L Hgb 8.4 L Hct 24.9 L RDW 20.9 H Plt Count [place] % (Auto) 14.7 H Lymph # (Auto) 0.6 L ABG pO2 191.6 H ABG O2 Saturation 99.2 H ABG Hemoglobin 9.0 L Sodium 126 L Potassium 6.0 H Chloride 91.0 L BUN 42 H Creatinine 6.9 H Glucose POC Glucose Calcium Phosphorus ALT < 5 L Total Protein 6.1 L Albumin 2.9 L Hepatitis C Antibody 05/18/22 05/18/22 05/18/22 04:13 04:20 06:00 WBC 3.0 L RBC 2.87 L Hgb 8.1 L Hct 25.3 L RDW 20.7 H Plt Count 127 L [place] % (Auto) 15.1 H Lymph # (Auto) 0.5 L ABG pO2 158.7 H ABG O2 Saturation ABG Hemoglobin 9.4 L Sodium 128 L Potassium 6.8 H* Chloride 93.7 L BUN 48 H Creatinine 6.8 H Glucose POC Glucose Calcium Phosphorus ALT Total Protein Albumin Hepatitis C Antibody 05/18/22 05/18/22 05/18/22 17:49 18:10 23:15 WBC RBC Hgb Hct RDW Plt Count [place] % (Auto) Lymph # (Auto) ABG pO2 ABG O2 Saturation ABG Hemoglobin Sodium Potassium Chloride BUN Creatinine Glucose POC Glucose 144 H 145 H Calcium Phosphorus ALT Total Protein Albumin Hepatitis C Antibody Reactive A 05/19/22 05/19/22 05/19/22 03:18 03:18 05:21 WBC 2.6 L RBC 2.94 L Hgb 8.5 L Hct 26.2 L RDW 20.3 H Plt Count 137 L [place] % (Auto) Lymph # (Auto) ABG pO2 ABG O2 Saturation ABG Hemoglobin Sodium Potassium 5.1 H D Chloride BUN 34 H Creatinine 4.9 H Glucose 130 H POC Glucose 143 H Calcium 8.3 L Phosphorus ALT Total Protein Albumin Hepatitis C Antibody 05/19/22 05/19/22 05/20/22 11:23 17:48 00:01 WBC RBC Hgb Hct RDW Plt Count [place] % (Auto) Lymph # (Auto) ABG pO2 ABG O2 Saturation ABG Hemoglobin Sodium Potassium Chloride BUN Creatinine Glucose POC Glucose 127 H 156 H 142 H Calcium Phosphorus ALT Total Protein Albumin Hepatitis C Antibody 05/20/22 05/20/22 05/20/22 04:31 04:31 17:44 WBC RBC 2.72 L Hgb 7.8 L Hct 24.1 L RDW 20.9 H Plt Count [place] % (Auto) Lymph # (Auto) ABG pO2 ABG O2 Saturation ABG Hemoglobin Sodium Potassium 5.4 H Chloride 96.5 L BUN 53 H Creatinine 6.7 H Glucose 115 H POC Glucose 132 H Calcium 8.1 L Phosphorus 7.90 H ALT Total Protein Albumin Hepatitis C Antibody 05/21/22 05/21/22 05/21/22 04:13 07:50 11:43 WBC RBC Hgb Hct RDW Plt Count [place] % (Auto) Lymph # (Auto) ABG pO2 ABG O2 Saturation ABG Hemoglobin Sodium Potassium Chloride 97.7 L BUN 37 H Creatinine 4.9 H Glucose POC Glucose 111 H 109 H Calcium 8.0 L Phosphorus ALT Total Protein Albumin Hepatitis C Antibody Chest x-ray: image reviewed (worsening pulomonary edema / volume overload pattern) Allied health notes reviewed: nursing
--- NOTE | 2022-05-21 14:32 | Progress Note ---
Assessment and Plan - Patient Problems (1) Hyperkalemia Current Visit: Yes Status: Acute Plan to address problem: levels have improved with hemodialysis. Please ensure that when appropriate that patient be placed on a low potassium diet. (2) Acute respiratory failure with hypoxia Current Visit: Yes Status: Acute Plan to address problem: extubated at this time. (3) ESRD on dialysis Current Visit: Yes Status: Chronic Plan to address problem: Have started patient on Wednesday/Wednesday/Wednesday inpatient hemodialysis schedule. Discussed with dialysis staff. (4) HTN (hypertension) Current Visit: Yes Status: Chronic Qualifiers: Hypertension type: primary hypertension Qualified Code(s): I10 - Essential (primary) hypertension Plan to address problem: monitor blood pressures on her current regimen. (5) Subdural hematoma Current Visit: Yes Status: Chronic Plan to address problem: Status post craniotomy and decompression. Subjective Date of service: 05/21/22 Principal diagnosis: Respiratory failure Interval history: Seen earlier this morning. No acute issues with hemodialysis and tolerated treatment well with 1 L ultrafiltration. Seems to be more agitated over the last 24 hours. Management per primary team noted. Remains on Precedex at this time. Objective - Vital Signs Vital signs: Vital Signs - 12hr 05/21/22 05/21/22 05/21/22 03:00 04:00 05:00 Temperature 99 F Pulse Rate 82 79 85 Pulse Rate [ From Monitor] Respiratory 18 18 16 Rate Respiratory Rate [Hip] Blood Pressure 95/67 92/61 96/59 O2 Sat by Pulse 99 92 98 Oximetry 05/21/22 05/21/22 05/21/22 06:00 07:00 07:43 Temperature Pulse Rate 83 78 79 Pulse Rate [ From Monitor] Respiratory 12 15 Rate Respiratory Rate [Hip] Blood Pressure 102/60 95/56 O2 Sat by Pulse 97 100 Oximetry 05/21/22 05/21/22 05/21/22 08:00 08:20 09:00 Temperature 98.1 F Pulse Rate 79 86 Pulse Rate [ 80 From Monitor] Respiratory 21 21 Rate Respiratory Rate [Hip] Blood Pressure 80/54 114/75 O2 Sat by Pulse 95 99 92 Oximetry 05/21/22 05/21/22 05/21/22 09:30 09:32 10:00 Temperature Pulse Rate 73 85 Pulse Rate [ From Monitor] Respiratory 19 17 Rate Respiratory 24 Rate [Hip] Blood Pressure 103/70 O2 Sat by Pulse 87 Oximetry 05/21/22 05/21/22 05/21/22 10:19 11:00 11:43 Temperature Pulse Rate 97 H 85 96 H Pulse Rate [ From Monitor] Respiratory 19 Rate Respiratory Rate [Hip] Blood Pressure 85/50 101/65 O2 Sat by Pulse Oximetry 05/21/22 05/21/22 05/21/22 12:00 13:00 14:00 Temperature 98.2 F Pulse Rate 98 H 96 H 81 Pulse Rate [ 96 H From Monitor] Respiratory 18 19 16 Rate Respiratory Rate [Hip] Blood Pressure 111/75 90/62 105/69 O2 Sat by Pulse 99 93 93 Oximetry - General Appearance General appearance: well-developed, appears stated age EENT: ATNC Neck: no JVD, no thyromegaly Respiratory: Present: Clear to Ascultation Cardiology: regular Gastrointestinal: normal Integumentary: no rash, warm and dry Neurologic: no focal deficit, alert and oriented x3 Musculoskeletal: deferred Psychiatric: cooperative - Lab 05/20/22 04:31 05/21/22 04:13 Most recent lab results ABG pH 7.367 pH Units (7.350-7.450) 05/18/22 06:00 ABG pCO2 44.9 mm Hg 05/18/22 06:00 ABG pO2 158.7 mm Hg (80.0-90.0) H 05/18/22 06:00 ABG HCO3 25.2 mmol/L (20.0-26.0) 05/18/22 06:00 ABG O2 Saturation 98.9 % (95.0-99.0) 05/18/22 06:00 Calcium 8.0 mg/dL (8.4-10.2) L 05/21/22 04:13 Phosphorus 3.80 mg/dL (2.5-4.5) D 05/21/22 04:13 Magnesium 1.80 mg/dL (1.7-2.3) 05/21/22 04:13 - Allied health notes Allied health notes reviewed: nursing Medications & Allergies - Medications Allergies/Adverse Reactions: Allergies No Known Allergies Allergy (Unverified 05/17/22 15:36) Home Medications: Home Medications Medication Instructions Recorded Confirmed Last Taken Type ALPRAZolam 0.5 mg PO BID 05/19/22 05/19/22 Unknown History Clopidogrel [Plavix] 75 mg PO QDAY 05/19/22 05/19/22 Unknown History Losartan [Cozaar] 100 mg PO QDAY 05/19/22 05/19/22 Unknown History Metoprolol [Lopressor TAB] 100 mg PO BID 05/19/22 05/19/22 Unknown History NIFEdipine [Nifedipine ER] 60 mg PO BID 05/19/22 05/19/22 Unknown History Oxycodone HCl/Acetaminophen 1 each PO Q8H PRN 05/19/22 05/19/22 Unknown History [Oxycodone-Acetaminophen 10-325] QUEtiapine [SEROquel] 50 mg PO BID 05/19/22 05/19/22 Unknown History Trelegy Ellipta 100-62.5-25 100 mcg INHALATION DAILY 05/19/22 05/19/22 Unknown History dilTIAZem [CarDIZEM] 180 mg PO BID 05/19/22 05/19/22 Unknown History Active Medications: Generic Name Dose Route Start Last Admin Trade Name Freq PRN Reason Stop Dose Admin Acetaminophen 650 mg 05/17/22 14:26 Acetaminophen 325 Mg Tab PO Q4H PRN Pain MILD(1-3)/Fever >100.5/DYER Albumin Human 25 gm 05/18/22 09:10 Albumin Human 25% (25 Gm/100 Ml) Inj IV TOM PRN Hypotension Albuterol 2.5 mg 05/18/22 06:02 Albuterol 2.5 Mg/3 Ml Nebu IH Q3HRT PRN Wheezing Alprazolam 0.5 mg 05/20/22 08:34 05/20/22 14:43 Alprazolam 0.5 Mg Tab PO 0.5 mg BID PRN Administration Anxiety Aspirin 81 mg 05/21/22 10:00 05/21/22 09:32 Aspirin Ec 81 Mg Tab PO 81 mg QDAY DAQUAN Administration Dextrose 50 ml 05/18/22 15:00 Dextrose 50% In Water (25gm) 50 Ml Syringe IV Q30MIN PRN Hypoglycemia Protocol Diphenhydramine HCl 25 mg 05/20/22 13:30 05/20/22 13:30 Diphenhydramine 25 Mg Cap PO 25 mg Q6H PRN Administration Itching Epoetin Jacinto-epbx 10,000 unit 05/18/22 09:10 05/20/22 17:25 Epoetin Jacinto-Epbx 10,000 Unit/1 Ml Vial IV 10,000 unit TOM PRN Administration hemodialysis Famotidine 20 mg 05/20/22 10:00 05/21/22 09:32 Famotidine 20 Mg Tab PO 20 mg QDAY DAQUAN Administration Heparin Sodium (Porcine) 5,000 unit 05/17/22 22:00 05/21/22 09:31 Heparin 5,000 Unit/1 Ml Vial SUB-Q 5,000 unit Q12HR DAQUAN Administration Dexmedetomidine HCl 400 mcg/ 104 mls @ 3.968 mls/hr 05/17/22 16:00 05/21/22 11:39 Sodium Chloride IV 0.6 mcg/kg/hr TITRATE DAQUAN 11.903 mls/hr Titration Protocol 0.2 MCG/KG/HR Sodium Chloride 100 mls @ 999 mls/hr 05/18/22 09:10 Nacl 0.9% IV TOM PRN Hypotension Cefepime HCl 1 gm in 100 mls @ 200 mls/hr 05/19/22 11:00 05/21/22 10:57 Cefepime/Ns 1 Gm/100 Ml IV Infused Q24H [facility] Infusion Protocol Losartan Potassium 100 mg 05/20/22 10:00 05/21/22 10:19 Losartan 50 Mg Tab PO Not Given QDAY [facility] Metoclopramide HCl 5 mg 05/18/22 09:00 05/19/22 07:53 Metoclopramide 10 Mg/2 Ml Inj IV 5 mg Q6H PRN Administration Nausea And Vomiting Metoprolol Tartrate 100 mg 05/19/22 17:00 05/21/22 09:32 Metoprolol Tartrate 100 Mg Tab PO 100 mg BID DAQUAN Administration Metoprolol Tartrate 2.5 mg 05/19/22 20:00 05/20/22 14:43 Metoprolol Tartrate 5 Mg/5 Ml Inj IV 2.5 mg Q6HR PRN Administration tachycardia Morphine Sulfate 2 mg 05/17/22 14:26 05/21/22 09:30 Morphine 2 Mg/1 Ml Inj IV 2 mg Q4H PRN Administration Pain, Moderate (4-6) Nifedipine 60 mg 05/20/22 10:00 05/21/22 10:24 Nifedipine Xl 60 Mg Tab PO Not Given BID [facility] Ondansetron HCl 4 mg 05/17/22 14:26 05/20/22 07:55 Ondansetron 4 Mg/2 Ml Inj IV 4 mg Q3H PRN Administration Nausea And Vomiting Oxycodone/Acetaminophen 1 tab 05/21/22 11:00 05/21/22 12:18 Oxycodone /Acetaminophen 5-325mg Tab PO 1 tab Q6H PRN Administration Pain, Moderate (4-6) Quetiapine Fumarate 50 mg 05/21/22 10:00 05/21/22 09:49 Quetiapine 25 Mg Tab PO 50 mg QDAY DAQUAN Administration Quetiapine Fumarate 100 mg 05/21/22 22:00 Quetiapine 25 Mg Tab PO QHS DAQUAN Sodium Chloride 10 ml 05/17/22 22:00 05/21/22 09:33 Sodium Chloride 0.9% 10 Ml Flush Syringe IV 10 ml BID DAQUAN Administration Sodium Chloride 10 ml 05/17/22 14:26 Sodium Chloride 0.9% 10 Ml Flush Syringe IV PRN PRN LINE FLUSH
[2022-05-21] MEDS ORDERED: HYDROmorphone 2 MG/1 ML INJ IV SCH (17:00)
--- NOTE | 2022-05-21 18:59 | XRay Report ---
. XR chest 1V ap INDICATION / CLINICAL INFORMATION: Hypoxia. COMPARISON: 05/18/2022 FINDINGS: SUPPORT DEVICES: Interval extubation and removal of right IJ central venous catheter and enteric cath eter. HEART /PULMONARY VASCULATURE: Cardiomegaly with worsening pulmonary vasculature congestion LUNGS / PLEURA: Worsening mixed interstitial and airspace opacities of the mid and lower lungs with s mall bibasilar pleural effusions, right greater than left. No pneumothorax. IMPRESSION: Findings most consistent with worsening CHF with pulmonary edema and small pleural effusions. Signer Name: Ras Parra MD Signed: 05/21/2022 6:55 PM Workstation Name: Transfer To
[2022-05-21] MEDS: METOPROLOL TARTRATE 5 MG/5 ML INJ IV PRN (21:55)
[2022-05-21] MEDS ORDERED: QUEtiapine 25 MG TAB PO SCH (22:00)
[2022-05-21] MEDS ORDERED: dilTIAZem 25 MG/5 ML INJ IV ONE (22:56)
[2022-05-22] MEDS: MORPHINE 2 MG/1 ML INJ IV PRN ×4 (04:11→20:12)
[2022-05-22 05:02] LABS: Hematocrit 20.3 % (35.5-45.6); Hemoglobin 6.8 gm/dl (11.8-15.2); Mean Corpuscular HGB Conc 34 % (32-34); Mean Corpuscular Volume 88 fl (84-94); Platelet Count 103 K/mm3 (140-440); Red Blood Count 2.31 M/mm3 (3.65-5.03)
[2022-05-22 05:07] LABS: Red Cell Distribution Width 20.4 % (13.2-15.2)
[2022-05-22 05:38] LABS: Calcium 7.9 mg/dL (8.4-10.2)
[2022-05-22] MEDS: oxyCODONE /ACETAMINOPHEN 5-325MG TAB PO PRN ×3 (05:58→18:24)
[2022-05-22] MEDS ORDERED: SODIUM CHLORIDE 0.9% 500 ML 500 ML IV NR (07:50)
[2022-05-22] MEDS ORDERED: MAGNESIUM SULFATE 4 GM/100 ML BAG IV SCH (08:30)
[2022-05-22] MEDS: DOCUSATE SODIUM 100 MG CAP PO SCH ×2 (09:30→21:00)
[2022-05-22] MEDS: METOPROLOL TARTRATE 100 MG TAB PO SCH ×2 (09:30→21:00)
[2022-05-22] MEDS: FAMOTIDINE 20 MG TAB PO SCH (09:30)
[2022-05-22] MEDS: QUEtiapine 25 MG TAB PO SCH ×2 (09:30→21:01)
[2022-05-22] MEDS: ASPIRIN EC 81 MG TAB PO SCH (09:30)
--- NOTE | 2022-05-22 10:56 | Progress Note ---
Assessment and Plan - Patient Problems (1) Hyperkalemia Current Visit: Yes Status: Acute Plan to address problem: levels have improved with hemodialysis. Please ensure that when appropriate that patient be placed on a low potassium diet. (2) Acute respiratory failure with hypoxia Current Visit: Yes Status: Acute Plan to address problem: extubated at this time. (3) ESRD on dialysis Current Visit: Yes Status: Chronic Plan to address problem: Have started patient on Wednesday/Wednesday/Wednesday inpatient hemodialysis schedule. Discussed with dialysis staff. (4) Anemia in CKD (chronic kidney disease) Current Visit: Yes Status: Acute Plan to address problem: Continue HETAL therapy with HD. Plan to transfuse 1 unit PRBC today. (5) HTN (hypertension) Current Visit: Yes Status: Chronic Qualifiers: Hypertension type: primary hypertension Qualified Code(s): I10 - Essential (primary) hypertension Plan to address problem: monitor blood pressures on her current regimen. (6) Subdural hematoma Current Visit: Yes Status: Chronic Plan to address problem: Status post craniotomy and decompression. Subjective Date of service: 05/22/22 Principal diagnosis: Respiratory failure Interval history: No acute issues. Plan to transfuse 1 unit PRBC. No signs of active GI bleed. Also receiving Epogen with treatments. Objective - Vital Signs Vital signs: Vital Signs - 12hr 05/21/22 05/22/22 05/22/22 23:00 00:00 01:00 Temperature 100.4 F H Pulse Rate 106 H 107 H 122 H Respiratory 23 19 23 Rate Respiratory Rate [Hip] Blood Pressure 111/77 118/81 105/76 O2 Sat by Pulse 95 98 96 Oximetry 05/22/22 05/22/22 05/22/22 02:00 03:00 03:36 Temperature 99.8 F H Pulse Rate 116 H 100 H Respiratory 23 17 Rate Respiratory Rate [Hip] Blood Pressure 106/74 105/73 O2 Sat by Pulse 91 Oximetry 05/22/22 05/22/22 05/22/22 04:00 05:00 06:00 Temperature Pulse Rate 104 H 116 H 106 H Respiratory 22 21 23 Rate Respiratory Rate [Hip] Blood Pressure 110/76 105/63 106/68 O2 Sat by Pulse 93 93 96 Oximetry 05/22/22 05/22/22 05/22/22 07:00 07:44 08:00 Temperature 98.6 F Pulse Rate 121 H 112 H Respiratory 23 23 Rate Respiratory Rate [Hip] Blood Pressure 103/79 96/68 O2 Sat by Pulse 96 97 Oximetry 05/22/22 05/22/22 05/22/22 09:00 09:30 10:00 Temperature Pulse Rate 92 H 94 H Respiratory 19 Rate Respiratory 25 H Rate [Hip] Blood Pressure 101/62 96/64 O2 Sat by Pulse 94 Oximetry - General Appearance General appearance: appears stated age EENT: ATNC Neck: no JVD, no thyromegaly Respiratory: Present: Clear to Ascultation Cardiology: regular Gastrointestinal: normal Integumentary: no rash Neurologic: no focal deficit Musculoskeletal: deferred Psychiatric: cooperative - Lab 05/22/22 03:59 05/22/22 03:59 Most recent lab results ABG pH 7.367 pH Units (7.350-7.450) 05/18/22 06:00 ABG pCO2 44.9 mm Hg 05/18/22 06:00 ABG pO2 158.7 mm Hg (80.0-90.0) H 05/18/22 06:00 ABG HCO3 25.2 mmol/L (20.0-26.0) 05/18/22 06:00 ABG O2 Saturation 98.9 % (95.0-99.0) 05/18/22 06:00 Calcium 7.9 mg/dL (8.4-10.2) L 05/22/22 03:59 Phosphorus 3.20 mg/dL (2.5-4.5) 05/22/22 03:59 Magnesium 1.60 mg/dL (1.7-2.3) L 05/22/22 03:59 - Allied health notes Allied health notes reviewed: nursing Medications & Allergies - Medications Allergies/Adverse Reactions: Allergies No Known Allergies Allergy (Unverified 05/17/22 15:36) Home Medications: Home Medications Medication Instructions Recorded Confirmed Last Taken Type ALPRAZolam 0.5 mg PO BID 05/19/22 05/19/22 Unknown History Clopidogrel [Plavix] 75 mg PO QDAY 05/19/22 05/19/22 Unknown History Losartan [Cozaar] 100 mg PO QDAY 05/19/22 05/19/22 Unknown History Metoprolol [Lopressor TAB] 100 mg PO BID 05/19/22 05/19/22 Unknown History NIFEdipine [Nifedipine ER] 60 mg PO BID 05/19/22 05/19/22 Unknown History Oxycodone HCl/Acetaminophen 1 each PO Q8H PRN 05/19/22 05/19/22 Unknown History [Oxycodone-Acetaminophen 10-325] QUEtiapine [SEROquel] 50 mg PO BID 05/19/22 05/19/22 Unknown History Trelegy Ellipta 100-62.5-25 100 mcg INHALATION DAILY 05/19/22 05/19/22 Unknown History dilTIAZem [CarDIZEM] 180 mg PO BID 05/19/22 05/19/22 Unknown History Active Medications: Generic Name Dose Route Start Last Admin Trade Name Freq PRN Reason Stop Dose Admin Acetaminophen 650 mg 05/17/22 14:26 Acetaminophen 325 Mg Tab PO Q4H PRN Pain MILD(1-3)/Fever >100.5/DYER Albumin Human 25 gm 05/18/22 09:10 Albumin Human 25% (25 Gm/100 Ml) Inj IV TOM PRN Hypotension Albuterol 2.5 mg 05/18/22 06:02 Albuterol 2.5 Mg/3 Ml Nebu IH Q3HRT PRN Wheezing Alprazolam 0.5 mg 05/20/22 08:34 05/20/22 14:43 Alprazolam 0.5 Mg Tab PO 0.5 mg BID PRN Administration Anxiety Aspirin 81 mg 05/21/22 10:00 05/22/22 09:30 Aspirin Ec 81 Mg Tab PO 81 mg QDAY DAQUAN Administration Dextrose 50 ml 05/18/22 15:00 Dextrose 50% In Water (25gm) 50 Ml Syringe IV Q30MIN PRN Hypoglycemia Protocol Diphenhydramine HCl 25 mg 05/20/22 13:30 05/20/22 13:30 Diphenhydramine 25 Mg Cap PO 25 mg Q6H PRN Administration Itching Docusate Sodium 100 mg 05/22/22 10:00 05/22/22 09:30 Docusate Sodium 100 Mg Cap PO 100 mg BID DAQUAN Administration Epoetin Jacinto-epbx 10,000 unit 05/18/22 09:10 05/20/22 17:25 Epoetin Jacinto-Epbx 10,000 Unit/1 Ml Vial IV 10,000 unit TOM PRN Administration hemodialysis Famotidine 20 mg 05/20/22 10:00 05/22/22 09:30 Famotidine 20 Mg Tab PO 20 mg QDAY DAQUAN Administration Dexmedetomidine HCl 400 mcg/ 104 mls @ 3.968 mls/hr 05/17/22 16:00 05/22/22 10:24 Sodium Chloride IV 0.6 mcg/kg/hr TITRATE DAQUAN 11.903 mls/hr Titration Protocol 0.2 MCG/KG/HR Sodium Chloride 100 mls @ 999 mls/hr 05/18/22 09:10 Nacl 0.9% IV TOM PRN Hypotension Magnesium Sulfate 4 gm in 100 mls @ 25 mls/hr 05/22/22 08:30 05/22/22 09:14 Magnesium Sulfate 4gm/100ml IV 05/22/22 12:30 25 mls/hr ONCE@0830 DAQUAN Administration Sodium Chloride 500 mls @ 0 mls/hr 05/22/22 07:50 Nacl 0.9% 500 Ml IV 05/22/22 23:59 ONCE NR As Directed Losartan Potassium 100 mg 05/23/22 10:00 Losartan 50 Mg Tab PO QDAY [facility] Metoclopramide HCl 5 mg 05/18/22 09:00 05/19/22 07:53 Metoclopramide 10 Mg/2 Ml Inj IV 5 mg Q6H PRN Administration Nausea And Vomiting Metoprolol Tartrate 2.5 mg 05/19/22 20:00 05/21/22 21:55 Metoprolol Tartrate 5 Mg/5 Ml Inj IV 2.5 mg Q6HR PRN Administration tachycardia Metoprolol Tartrate 50 mg 05/21/22 19:08 05/22/22 09:30 Metoprolol Tartrate 100 Mg Tab PO 50 mg BID [facility] [place] Administration Morphine Sulfate 2 mg 05/17/22 14:26 05/22/22 09:14 Morphine 2 Mg/1 Ml Inj IV 2 mg Q4H PRN Administration Pain, Moderate (4-6) Nifedipine 60 mg 05/23/22 10:00 Nifedipine Xl 60 Mg Tab PO BID [facility] [place] Ondansetron HCl 4 mg 05/17/22 14:26 05/20/22 07:55 Ondansetron 4 Mg/2 Ml Inj IV 4 mg Q3H PRN Administration Nausea And Vomiting Oxycodone/Acetaminophen 1 tab 05/21/22 11:00 05/22/22 05:58 Oxycodone /Acetaminophen 5-325mg Tab PO 1 tab Q6H PRN Administration Pain, Moderate (4-6) Quetiapine Fumarate 50 mg 05/21/22 10:00 05/22/22 09:30 Quetiapine 25 Mg Tab PO 50 mg QDAY DAQUAN Administration Quetiapine Fumarate 100 mg 05/21/22 22:00 05/21/22 21:01 Quetiapine 25 Mg Tab PO 100 mg QHS DAQUAN Administration Senna/Docusate Sodium 1 tab 05/22/22 22:00 Sennosides/Docusate Sodium 8.6/50 Mg Tab PO QHS DAQUAN Sodium Chloride 10 ml 05/17/22 22:00 05/22/22 10:27 Sodium Chloride 0.9% 10 Ml Flush Syringe IV 10 ml BID DAQUAN Administration Sodium Chloride 10 ml 05/17/22 14:26 Sodium Chloride 0.9% 10 Ml Flush Syringe IV PRN PRN LINE FLUSH
--- NOTE | 2022-05-22 12:20 | Progress Note ---
Assessment and Plan Acute hypoxemic respiratory failure on mechanical ventilatory support Acute toxic metabolic encephalopathy Left subdural hematoma s/p evacuation End-stage renal disease on dialysis Right hip fracture Hypertension COPD CMOP H/O Cocaine abuse Oropharyngeal dysphagia Hyponatremia Anemia that is normocytic likely of chronic disease - to receive 1 unit PRBC's for serum Hb of 6.8 - continue Epogen with dialysis - wean Precedex re: clinical response - uptitrate Seroquel to aid weaning off Precedex - continue care as below otherwise; - conservative management for hip fracture - orthopedic consult placed earlier - pulmonary edema pattern should improve with extra UF sessions as tolerated - continue local wound care to trach stoma - continue to wean oxygen for O2 sat's > 90% - continue bronchodilators with pulmonary hygiene per RT -aspiration precautions, HOB >40 - continue to wean per pulmonary driven protocols - continue HD/UF per nephrology prescription for toxin and volume clearance - prn analgesia per pain score - follow clinically re: fever curves / trend WBC - Avoid delirium (no benzodiazepines if they can be avoided) - Maintain sleep-wake cycle - enteral nutrition at goal rate as tolerated - accucheck's with glycemic control per SSI for target blood glucose goal of < 180 mg/dL; Avoid hypoglycemia - VTE prophylaxis with Heparin - stress ulcer prophylaxis with Pantoprazole - mobility protocols for pressure ulcer prophylaxis - fall precautions - wound care management per RN / WCT - increase ambulation; PT/OT as tolerated - Supportive transfusions to keep Hb>7g/dL - CXR's and ABG's prn - continue to monitor neurologic function - continue chronic home medications as indicated - continue all supportive care ........ re-evaluate in am & prn Subjective Date of service: 05/22/22 Principal diagnosis: AHRF; AMS; Left SDH; ESRD on dialysis; COPD; H/O Cocaine abuse Interval history: CC:Patient is being seen today for Acute hypoxemic respiratory failure; AMS; Left SDH; ESRD on dialysis; COPD; H/O Cocaine abuse Subjective: Seen and examined at bedside; 24hr events reviewed; nursing and respiratory care staff consulted; no adverse overnight events reported to me; resting peacefully in bed; seen by orthopedic surgeon today; dialysis ongoing at time of my examination; denies N/V/F/C Objective Vital Signs - 12hr 05/22/22 05/22/22 05/22/22 01:00 02:00 03:00 Temperature Pulse Rate 122 H 116 H 100 H Pulse Rate [ From Monitor] Respiratory 23 23 17 Rate Respiratory Rate [Hip] Blood Pressure 105/76 106/74 105/73 O2 Sat by Pulse 96 91 Oximetry 05/22/22 05/22/22 05/22/22 03:36 04:00 05:00 Temperature 99.8 F H Pulse Rate 104 H 116 H Pulse Rate [ From Monitor] Respiratory 22 21 Rate Respiratory Rate [Hip] Blood Pressure 110/76 105/63 O2 Sat by Pulse 93 93 Oximetry 05/22/22 05/22/22 05/22/22 06:00 07:00 07:44 Temperature 98.6 F Pulse Rate 106 H 121 H Pulse Rate [ From Monitor] Respiratory 23 23 Rate Respiratory Rate [Hip] Blood Pressure 106/68 103/79 O2 Sat by Pulse 96 96 Oximetry 05/22/22 05/22/22 05/22/22 08:00 09:00 09:30 Temperature Pulse Rate 112 H 92 H 94 H Pulse Rate [ From Monitor] Respiratory 23 19 Rate Respiratory Rate [Hip] Blood Pressure 96/68 101/62 96/64 O2 Sat by Pulse 97 94 Oximetry 05/22/22 05/22/22 05/22/22 10:00 11:00 11:05 Temperature 98.2 F Pulse Rate 87 98 H 91 H Pulse Rate [ From Monitor] Respiratory 16 23 20 Rate Respiratory 25 H Rate [Hip] Blood Pressure 98/66 90/62 90/62 O2 Sat by Pulse 93 96 92 Oximetry 05/22/22 05/22/22 11:20 12:00 Temperature 97.6 F 97.6 F Pulse Rate 84 79 Pulse Rate [ 85 From Monitor] Respiratory 23 22 Rate Respiratory Rate [Hip] Blood Pressure 89/56 102/60 O2 Sat by Pulse 94 93 Oximetry Constitutional: no acute distress, asleep, other (middle aged male with normal respiratory effort at rest) Eyes: non-icteric ENT: oropharynx moist Neck: supple, no JVD Ascultation: Bilateral: rales Percussion: Bilateral: not dull Cardiovascular: irregular rhythm Gastrointestinal: normoactive bowel sounds, soft, non-tender, non-distended, other (slightly distended.) Integumentary: normal, other (healed scalp craniotomy incision line) Extremities: no cyanosis, pink and warm, pulses normal, no ischemia or petechiae Neurologic: non-focal exam (grossly), pupils equal and round, CN II-XII normal Psychiatric: mood appropriate, affect normal CBC and BMP: 05/23/22 04:00 05/23/22 04:17 ABG, PT/INR, D-dimer: ABG ABG pH 7.367 pH Units (7.350-7.450) 05/18/22 06:00 ABG pCO2 44.9 mm Hg 05/18/22 06:00 ABG pO2 158.7 mm Hg (80.0-90.0) H 05/18/22 06:00 ABG O2 Saturation 98.9 % (95.0-99.0) 05/18/22 06:00 Abnormal lab findings: Abnormal Labs 05/17/22 05/17/22 05/17/22 14:26 14:28 15:10 WBC 4.0 L RBC 2.86 L Hgb 8.4 L Hct 24.9 L RDW 20.9 H Plt Count [place] % (Auto) 14.7 H Lymph # (Auto) 0.6 L ABG pO2 191.6 H ABG O2 Saturation 99.2 H ABG Hemoglobin 9.0 L Sodium 126 L Potassium 6.0 H Chloride 91.0 L BUN 42 H Creatinine 6.9 H Glucose POC Glucose Calcium Phosphorus Magnesium ALT < 5 L Total Protein 6.1 L Albumin 2.9 L Hepatitis C Antibody Crossmatch 05/18/22 05/18/22 05/18/22 04:13 04:20 06:00 WBC 3.0 L RBC 2.87 L Hgb 8.1 L Hct 25.3 L RDW 20.7 H Plt Count 127 L [place] % (Auto) 15.1 H Lymph # (Auto) 0.5 L ABG pO2 158.7 H ABG O2 Saturation ABG Hemoglobin 9.4 L Sodium 128 L Potassium 6.8 H* Chloride 93.7 L BUN 48 H Creatinine 6.8 H Glucose POC Glucose Calcium Phosphorus Magnesium ALT Total Protein Albumin Hepatitis C Antibody Crossmatch 05/18/22 05/18/22 05/18/22 17:49 18:10 23:15 WBC RBC Hgb Hct RDW Plt Count [place] % (Auto) Lymph # (Auto) ABG pO2 ABG O2 Saturation ABG Hemoglobin Sodium Potassium Chloride BUN Creatinine Glucose POC Glucose 144 H 145 H Calcium Phosphorus Magnesium ALT Total Protein Albumin Hepatitis C Antibody Reactive A Crossmatch 05/19/22 05/19/22 05/19/22 03:18 03:18 05:21 WBC 2.6 L RBC 2.94 L Hgb 8.5 L Hct 26.2 L RDW 20.3 H Plt Count 137 L [place] % (Auto) Lymph # (Auto) ABG pO2 ABG O2 Saturation ABG Hemoglobin Sodium Potassium 5.1 H D Chloride BUN 34 H Creatinine 4.9 H Glucose 130 H POC Glucose 143 H Calcium 8.3 L Phosphorus Magnesium ALT Total Protein Albumin Hepatitis C Antibody Crossmatch 05/19/22 05/19/22 05/20/22 11:23 17:48 00:01 WBC RBC Hgb Hct RDW Plt Count [place] % (Auto) Lymph # (Auto) ABG pO2 ABG O2 Saturation ABG Hemoglobin Sodium Potassium Chloride BUN Creatinine Glucose POC Glucose 127 H 156 H 142 H Calcium Phosphorus Magnesium ALT Total Protein Albumin Hepatitis C Antibody Crossmatch 05/20/22 05/20/22 05/20/22 04:31 04:31 17:44 WBC RBC 2.72 L Hgb 7.8 L Hct 24.1 L RDW 20.9 H Plt Count [place] % (Auto) Lymph # (Auto) ABG pO2 ABG O2 Saturation ABG Hemoglobin Sodium Potassium 5.4 H Chloride 96.5 L BUN 53 H Creatinine 6.7 H Glucose 115 H POC Glucose 132 H Calcium 8.1 L Phosphorus 7.90 H Magnesium ALT Total Protein Albumin Hepatitis C Antibody Crossmatch 05/21/22 05/21/22 05/21/22 04:13 07:50 11:43 WBC RBC Hgb Hct RDW Plt Count [place] % (Auto) Lymph # (Auto) ABG pO2 ABG O2 Saturation ABG Hemoglobin Sodium Potassium Chloride 97.7 L BUN 37 H Creatinine 4.9 H Glucose POC Glucose 111 H 109 H Calcium 8.0 L Phosphorus Magnesium ALT Total Protein Albumin Hepatitis C Antibody Crossmatch 05/21/22 05/21/22 05/22/22 17:00 20:52 03:59 WBC RBC 2.31 L Hgb 6.8 L Hct 20.3 L RDW 20.4 H Plt Count 103 L [place] % (Auto) Lymph # (Auto) ABG pO2 ABG O2 Saturation ABG Hemoglobin Sodium Potassium Chloride BUN Creatinine Glucose POC Glucose 116 H 121 H Calcium Phosphorus Magnesium ALT Total Protein Albumin Hepatitis C Antibody Crossmatch 05/22/22 05/22/22 05/22/22 03:59 06:00 07:33 WBC RBC Hgb Hct RDW Plt Count [place] % (Auto) Lymph # (Auto) ABG pO2 ABG O2 Saturation ABG Hemoglobin Sodium 134 L Potassium Chloride 94.7 L BUN 44 H Creatinine 5.7 H Glucose POC Glucose 135 H Calcium 7.9 L Phosphorus Magnesium 1.60 L ALT Total Protein Albumin Hepatitis C Antibody Crossmatch See Detail Allied health notes reviewed: nursing
--- NOTE | 2022-05-22 12:35 | Progress Note ---
<ARIANA HARDY - Last Filed: 05/22/22 17:36> Assessment and Plan Assessment and plan: This is a 56-year-old male with HTN, cardiomyopathy, ESRD on HD, COPD, former cocaine abuser, SDH with left shift and hemoperitoneum s/p decompressive craniotomy and paracentesis, acute hypoxic respiratory failure s/p tracheostomy with eventual decannulation who was admitted with acute hypoxic respiratory failure requiring ventilatory support. Hospital course to date: 05/18: Patient is following commands remains sedated on Precedex. Patient will receive hemodialysis today. Likely will CPAP tomorrow. NG tube placed and started on tube feedings. 05/19: S/p extubation, stable on RA. Patient is s/p fall today, now c/o of Left elbow and pelvic pain. Orders placed for Lt. elbow X-ray and CT head/lumbar spine/pelvic. PRN analgesia orderd for pain control. Patient remains in Afib with RVR HR in the 120-130s, currently on PO amio. Patient's home meds list is available will resume home medications for rate control. Possible Cardiology consult if Afib RVR persists. Will keep patient in the ICU for another 24hrs post extubation, possible transfer to the floor tomorrow if patient remains stable. 05/20: Increase anxiety and agitation overnight, back on low dose precedex gtt. Lt. elbow X-ray and CT scans reviewed, fractures enthesophytes, superior and inferior pubic rami with soft tissue hematoma reported. H&H is stable, no s/s of any active bleeding. Ortho consulted for further eval and treat. Continue to trend CBC and PRN analgesia for pain control. Patient remains in Afib with RVR, on BB, BP stable. Given patient's current Afib with RVR, will continue VTE proph for now, awaiting Cardio and Ortho recommendations. Cardiology also consulted. Patient's home seroquel and antianxiety regime resumed. Wean off precedex gtt for RASS goal of 0 to -1. Plan for HD today per Nephro. PT/OT ordered. 05/21: Remains on precedex gtt due to increase agitation and combativeness overnight, symptoms resolved this am. Patient's family reported multiple psych issues since childhood. Seroquel adjusted and Mental health/psych consulted. Patient remains in Afib but in rate control this am. Cardiology recommendations appreciated, 2D echo pending. Attending also discussed with Ortho, with no indication of any surgery at this time. Ortho recommends PT/OT and weight bearing as tolerated. Full consult pending. JESSICA alston ordered. PRN analgesia for pain control. 05/22: Remains on precedex, more calm and appropriate this am. Remains on 2L NC, hypoxia noted overnight on RA, recent CXR noted with increase CHF/pulmonary edema. Patient remains in Afib but in control rate. 2D echo and cardiology recommendations noted. Patient with low BP this am, BB reduced to 50mg BID and antihypertensive therapy held today. H&H also dropped this am and worsen thrombocytopenia this am, no s/s of any active bleeding. Will hold AC for now, 1unit of PRBCs rdered and iHD today per Nephro. Patient has been refusing PT and OOB activity, still c/o of buttocks and hip pain. Continue to encourage OOB and physical therapy. PRN analgesia for pain control. Monitor and replace electrolytes as needed Assessment and Plan Neuro: Acute Metabolic Encephalopathy-improved h/o SDH with left shift s/p decompressive craniotomy, h/o cocaine abuse/Spych issues S/p Fall -S/p extubation, off sedations -AAO, but with periods of disorientation, very impulsive -Remains on precedex overnight due to increase anxiety/agitation/combativeness -Patient's family reported multiple psych issues such as ADHD and since childhood -seroquel adjusted, continue PRN xanax -Wean precededx gtt for RASS goal 0 to -1 -Mental Health/psych consulted -Reorientation as needed -Maintain sleep-wake cycle -As needed analgesia -Fall precaution -PT/OT consulted Cardiac: Atrial Fibrilation with RVR, h/o cardiomyopathy, HTN -Patient remains in Afib, but in rate control this am. VSS -Cardiology consulted, appreciate recommendations -2D echo pending -Continue BB, reduced to 5omg BID and antihypertensive regimen held due to low BP -Blood pressure monitoring per protocol -Maintain SBP less than 160 -On Heparin SubQ Respiratory: Acute hypoxic respiratory failure, s/p tracheostomy with eventual decannulation, COPD -CCM consulted, appreciate recommendations -Intubated on 05/17 at OSH; 05/19 s/p extubation -Periods of Hypoxia on RA yesterday, now on 2L NC this am -Recent CXR reviewed, worsen CHF/pulmonary edema -Continue iHD per Nephro -Continue O2 supplementation and wean as tolerated -SPO2 monitoring for SPO2 goal aboev 92% -Of note patient self decannulated on 05/05 Superior and Inferior Pubic Rami fractures Left Enthesophytes Fracture S/p Fall -Noted from Lt. Elbow X-ray and CT scan, see report for details -Ortho consulted, appreciate recommendations -Attending also discussed with Ortho, with no indication of any surgery at this time. -Ortho recommends PT/OT and weight bearing as tolerated. Full consult pending. -LUE sling ordered. -PT/OT consulted -Patient has been refusing PT and OOB activity -Fall precaution -Continue to encourage OOB and physical therapy -PRN Analgesia for pain control GI: Moderate protein calorie malnutrition -S/p PEG tube placement, however now off -Patient removed Richter catheter that was in the PEG-tube stoma, dressing present -Patient passed bedside swallow, renal diet ordered -Speech also following -S/p paracentesis at [facility] on 05/06 with removal of 2.7 L : ESRD on HD, hyperkalemia -Nephrology consulted, appreciate recommendations -Continue HD per Nephro -Monitor intake and output -Renally dose medications -Avoid nephrotoxic medications -Monitor and replace electrolytes as needed -Trend BMP Heme: Anemia of Chronic Disease, Thrombocytopenia -Probably chronic 2/2 of ESRD -H&H dropped this am with worsen thrombocytopenia -No s/s of any active bleeding -1unit of PRBCs ordered -Continue Epogen with iHD per Nephro -Will hold AC for now -Transfuse for hgb less than 7 ID: Sepsis (POA) -Leukopenia, CXR showed left-sided effusion with associated opacity and mild right basilar atelectasis -COVID-19 PCR negative, MRSA PCR negative -s/p Antibiotic therapy with cefepime -f/u blood culture -Monitor WBC and temperature curve GI/DVT Prophylaxis -PPI- pepcid -SCDs to bilateral lower extremities while in bed The high probability of a clinically significant, sudden or life threatening deterioration of the [multi] system(s) required my full and direct attention, intervention and personal management. The aggregate critical care time was [60] minutes. This time is in addition to time spent performing reported procedures but includes the following: [x] Data Review and interpretation [x] Patient assessment and monitoring of vital signs [x] Documentation [x] Medication orders and management Disposition Plan: ICU Total Time Spent with Patient (Minutes): 60 History Interval history: Patient seen and examined at the bedside. More drowsy this am, but remains AAO, on 2L NC. Still on precedex gtt, c/o of buttocks and hip pain. Patient remains in Afib on the monitor, HR 70-90s, BP is borderline. Hospitalist Physical - Physical exam Narrative exam: General appearance: Present: no acute distress, well-nourished - EENT Eyes: Present: PERRL ENT: hearing intact - Neck Neck: Present: normal ROM - Respiratory Respiratory effort: normal Respiratory: bilateral: diminished - Cardiovascular Rhythm: irregularly irregular Heart Sounds: Present: S1 & S2 - Extremities Extremities: no ischemia, pulses intact, pulses symmetrical Peripheral Pulses: within normal limits - Abdominal General gastrointestinal: soft, non-distended, normal bowel sounds - Integumentary Integumentary: Present: warm, dry - Psychiatric Psychiatric: Calm and appropriate, cooperative, other (Impulsive at time) - Neurologic Neurologic: moves all extremities, other (AAO, but with periods of disorientation and impulsiveness) - Allied Health Allied health notes reviewed: nursing, case management - Constitutional Vitals: Temp Pulse Resp BP Pulse Ox 97.6 F 85 22 102/60 93 05/22/22 12:00 05/22/22 12:00 05/22/22 12:00 05/22/22 12:00 05/22/22 12:00 Results - Labs CBC & Chem 7: 05/22/22 03:59 05/22/22 03:59 Labs: Laboratory Last Values WBC 4.9 K/mm3 (4.5-11.0) 05/22/22 03:59 RBC 2.31 M/mm3 (3.65-5.03) L 05/22/22 03:59 Hgb 6.8 gm/dl (11.8-15.2) L 05/22/22 03:59 Hct 20.3 % (35.5-45.6) L 05/22/22 03:59 MCV 88 fl (84-94) 05/22/22 03:59 MCH 30 pg (28-32) 05/22/22 03:59 MCHC 34 % (32-34) 05/22/22 03:59 RDW 20.4 % (13.2-15.2) H 05/22/22 03:59 Plt Count 103 K/mm3 (140-440) L 05/22/22 03:59 Lymph % (Auto) 16.2 % (13.4-35.0) 05/18/22 04:20 [place] % (Auto) 15.1 % (0.0-7.3) H 05/18/22 04:20 Eos % (Auto) 3.1 % (0.0-4.3) 05/18/22 04:20 Baso % (Auto) 1.1 % (0.0-1.8) 05/18/22 04:20 Lymph # (Auto) 0.5 K/mm3 (1.2-5.4) L 05/18/22 04:20 [place] # (Auto) 0.5 K/mm3 (0.0-0.8) 05/18/22 04:20 Eos # (Auto) 0.1 K/mm3 (0.0-0.4) 05/18/22 04:20 Baso # (Auto) 0.0 K/mm3 (0.0-0.1) 05/18/22 04:20 Seg Neutrophils % 64.5 % (40.0-70.0) 05/18/22 04:20 Seg Neutrophils # 2.0 K/mm3 (1.8-7.7) 05/18/22 04:20 ABG pH 7.367 pH Units (7.350-7.450) 05/18/22 06:00 ABG pCO2 44.9 mm Hg 05/18/22 06:00 ABG pO2 158.7 mm Hg (80.0-90.0) H 05/18/22 06:00 ABG HCO3 25.2 mmol/L (20.0-26.0) 05/18/22 06:00 ABG O2 Saturation 98.9 % (95.0-99.0) 05/18/22 06:00 ABG O2 Content 13.0 (0.0-44) 05/18/22 06:00 ABG Base Excess -0.3 mmol/L (-2.0-3.0) 05/18/22 06:00 ABG Hemoglobin 9.4 gm/dl (14.0-18.0) L 05/18/22 06:00 ABG Carboxyhemoglobin 2.3 % (0.0-5.0) 05/18/22 06:00 ABG Methemoglobin 0.5 % (0.0-1.5) 05/18/22 06:00 Oxyhemoglobin 96.2 % (95.0-99.0) 05/18/22 06:00 FiO2 40 % 05/18/22 06:00 Sodium 134 mmol/L (137-145) L 05/22/22 03:59 Potassium 4.7 mmol/L (3.6-5.0) 05/22/22 03:59 Chloride 94.7 mmol/L (98-107) L 05/22/22 03:59 Carbon Dioxide 26 mmol/L (22-30) 05/22/22 03:59 Anion Gap 18 mmol/L 05/22/22 03:59 BUN 44 mg/dL (9-20) H 05/22/22 03:59 Creatinine 5.7 mg/dL (0.8-1.3) H 05/22/22 03:59 Estimated GFR 10 ml/min 05/22/22 03:59 BUN/Creatinine Ratio 8 % 05/22/22 03:59 Glucose 96 mg/dL (75-100) 05/22/22 03:59 POC Glucose 135 mg/dL (70-105) H 05/22/22 07:33 Calcium 7.9 mg/dL (8.4-10.2) L 05/22/22 03:59 Phosphorus 3.20 mg/dL (2.5-4.5) 05/22/22 03:59 Magnesium 1.60 mg/dL (1.7-2.3) L 05/22/22 03:59 Total Bilirubin 0.40 mg/dL (0.1-1.2) 05/17/22 14:28 AST 7 units/L (5-40) 05/17/22 14:28 ALT < 5 units/L (7-56) L 05/17/22 14:28 Alkaline Phosphatase 78 units/L (35-129) 05/17/22 14:28 Total Protein 6.1 g/dL (6.3-8.2) L 05/17/22 14:28 Albumin 2.9 g/dL (3.9-5) L 05/17/22 14:28 Albumin/Globulin Ratio 0.9 % 05/17/22 14:28 Nasal Screen MRSA (PCR) Negative (Negative) 05/18/22 08:30 Coronavirus (PCR) Negative (Negative) 05/18/22 07:57 Hepatitis A IgM Ab Non-reactive (NonReactive) 05/18/22 18:10 Hep Bs Antigen Non-reactive (Negative) 05/18/22 18:10 Hep B Core IgM Ab Non-reactive (NonReactive) 05/18/22 18:10 Hepatitis C Antibody Reactive (NonReactive) A 05/18/22 18:10 Blood Type A NEGATIVE 05/22/22 06:00 Antibody Screen Negative 05/22/22 06:00 Crossmatch See Detail 05/22/22 06:00 Active Medications - Current Medications Current Medications: Generic Name Dose Route Start Last Admin Trade Name Freq PRN Reason Stop Dose Admin Acetaminophen 650 mg 05/17/22 14:26 Acetaminophen 325 Mg Tab PO Q4H PRN Pain MILD(1-3)/Fever >100.5/DYER Albumin Human 25 gm 05/18/22 09:10 Albumin Human 25% (25 Gm/100 Ml) Inj IV TOM PRN Hypotension Albuterol 2.5 mg 05/18/22 06:02 Albuterol 2.5 Mg/3 Ml Nebu IH Q3HRT PRN Wheezing Alprazolam 0.5 mg 05/20/22 08:34 05/20/22 14:43 Alprazolam 0.5 Mg Tab PO 0.5 mg BID PRN Administration Anxiety Aspirin 81 mg 05/21/22 10:00 05/22/22 09:30 Aspirin Ec 81 Mg Tab PO 81 mg QDAY DAQUAN Administration Dextrose 50 ml 05/18/22 15:00 Dextrose 50% In Water (25gm) 50 Ml Syringe IV Q30MIN PRN Hypoglycemia Protocol Diphenhydramine HCl 25 mg 05/20/22 13:30 05/20/22 13:30 Diphenhydramine 25 Mg Cap PO 25 mg Q6H PRN Administration Itching Docusate Sodium 100 mg 05/22/22 10:00 05/22/22 09:30 Docusate Sodium 100 Mg Cap PO 100 mg BID DAQUAN Administration Epoetin Jacinto-epbx 10,000 unit 05/18/22 09:10 05/20/22 17:25 Epoetin Jacinto-Epbx 10,000 Unit/1 Ml Vial IV 10,000 unit TOM PRN Administration hemodialysis Famotidine 20 mg 05/20/22 10:00 05/22/22 09:30 Famotidine 20 Mg Tab PO 20 mg QDAY DAQUAN Administration Dexmedetomidine HCl 400 mcg/ 104 mls @ 3.968 mls/hr 05/17/22 16:00 05/22/22 11:15 Sodium Chloride IV 0.4 mcg/kg/hr TITRATE DAQUAN 7.935 mls/hr Titration Protocol 0.2 MCG/KG/HR Sodium Chloride 100 mls @ 999 mls/hr 05/18/22 09:10 Nacl 0.9% IV TOM PRN Hypotension Sodium Chloride 500 mls @ 0 mls/hr 05/22/22 07:50 Nacl 0.9% 500 Ml IV 05/22/22 23:59 ONCE NR As Directed Losartan Potassium 100 mg 05/23/22 10:00 Losartan 50 Mg Tab PO QDAY [facility] Metoclopramide HCl 5 mg 05/18/22 09:00 05/19/22 07:53 Metoclopramide 10 Mg/2 Ml Inj IV 5 mg Q6H PRN Administration Nausea And Vomiting Metoprolol Tartrate 2.5 mg 05/19/22 20:00 05/21/22 21:55 Metoprolol Tartrate 5 Mg/5 Ml Inj IV 2.5 mg Q6HR PRN Administration tachycardia Metoprolol Tartrate 50 mg 05/21/22 19:08 05/22/22 09:30 Metoprolol Tartrate 100 Mg Tab PO 50 mg BID [facility] Administration Morphine Sulfate 2 mg 05/17/22 14:26 05/22/22 09:14 Morphine 2 Mg/1 Ml Inj IV 2 mg Q4H PRN Administration Pain, Moderate (4-6) Nifedipine 60 mg 05/23/22 10:00 Nifedipine Xl 60 Mg Tab PO BID [facility] Ondansetron HCl 4 mg 05/17/22 14:26 05/20/22 07:55 Ondansetron 4 Mg/2 Ml Inj IV 4 mg Q3H PRN Administration Nausea And Vomiting Oxycodone/Acetaminophen 1 tab 05/21/22 11:00 05/22/22 05:58 Oxycodone /Acetaminophen 5-325mg Tab PO 1 tab Q6H PRN Administration Pain, Moderate (4-6) Quetiapine Fumarate 50 mg 05/21/22 10:00 05/22/22 09:30 Quetiapine 25 Mg Tab PO 50 mg QDAY DAQUAN Administration Quetiapine Fumarate 100 mg 05/21/22 22:00 05/21/22 21:01 Quetiapine 25 Mg Tab PO 100 mg QHS DAQUAN Administration Senna/Docusate Sodium 1 tab 05/22/22 22:00 Sennosides/Docusate Sodium 8.6/50 Mg Tab PO QHS DAQUAN Sodium Chloride 10 ml 05/17/22 22:00 05/22/22 10:27 Sodium Chloride 0.9% 10 Ml Flush Syringe IV 10 ml BID DAQUAN Administration Sodium Chloride 10 ml 05/17/22 14:26 Sodium Chloride 0.9% 10 Ml Flush Syringe IV PRN PRN LINE FLUSH Nutrition/Malnutrition Assess - Dietary Evaluation Nutrition/Malnutrition Findings: Nutrition Notes Start: 05/18/22 14:16 Freq: Status: Active Protocol: Document 05/20/22 12:37 LUCERO (Rec: 05/20/22 13:15 LUCERO [id number]) Nutrition Notes Initial or Follow up Reassessment Current Diagnosis CKD (stage V CKD),COPD, Hypertension,Malnutrition Other Pertinent Diagnosis Metabolic Encephalopathy, L- Elbow+Pelvic Fractures s/p Fall, ESRD+HD, Atria Current Diet Renal Diet (since D 05/19), D Suppl (since L 05/20). Labs/Tests 05/20: K 5.4, Cl 96.5, BUN 53, Crea 6.7, Glu 115, Ca 8.1, Phos 7.9. Pertinent Medications 05/20: Nutritionally unremarkable. 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 No body weight change reported in 2 days. Weight Status Appropriate Subjective/Other Information RD consult for routine F/U on TF tolerance/continuation assessment. TF was discontinued and Pt advanced to PO diet, No reports available on Pt's PO intake of meals at the time, will assess at F/U. MD prescribed dietary supplements, I will keep the prescription to compensate for possible poor or insufficient PO intake of meals during LOS . [address] [employer] note on 05/20/22 11:00: Received a repeat order to assess swallowing function. Spoke with the patient's nurse who was aware of the assessment which was conducted the previous day. Patient is safe for a regular diet. Will discharge the order. - END OF NOTE. Pt is on Room Air, O2 saturation @ 100%, according to Physical Assessment History notes. Pt was extubated on 05/19, well tolerated room air directly, according to Progress notes. Pt experienced a fall on 05/19 with subsequent L-elbow and pelvic fractures, according to Progress notes. Pt presents R-hand abrasions and neck surgical wound as signs of concern for skin risk at the time, according to Physical Assessment History notes. Percent of energy/protein needs met: Prescribed Renal Diet provides for energy/protein needs (2, 072 Kcal/77 g) during LOS; additionally, Dietary Supplements will compensate for possible poor or insufficient PO intake of meals with 850 Kcal and 38 g of protein. 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 Diagnosis Progress(for reassessment Resolved documentation) Is patient on ventilator? No Is Patient Ambulatory and/or Out of Bed Yes REE-([facility]-ambulatory/OOB) [ [id number] [id number]] Calculation Used for Recommendations [facility] Additional Notes Protein: >1.2 g/Kg ABW; >92 g/ day. Fluids: 1 ml/Kcal, or as per MD. Nutrition Intervention Change Diet Order: Continue Renal Diet as tolerated. Nutrition Support: Discontinued. Add Supplement/Snack (indicate name/kcal Continue 8 fl oz Nepro w/ /protein ) CARBSTEADY; BID. Provides kCal: 850 Provides Protein (gm) 38 Goal #1 Compensate, through dietary supplementation, for possible poor or insufficient PO intake of meals during LOS. Goal #2 Adjust the dietary intervention to better serve Pt's needs and clinical conditions during LOS. Follow-Up By: 05/27/22 Additional Comments Continue monitoring food tolerance, %PO intake of meals , dietary supplements, and BM. <SARAH AVITIA E - Last Filed: 05/23/22 10:28> Assessment and Plan Assessment and plan: I saw and evaluated the patient. I agree with the findings and the plan of care as documented in the Nurse Practitioner's~note, with the following corrections and additions. Hospitalist Physical - Constitutional Vitals: Temp Pulse Resp BP Pulse Ox 98.6 F 127 H 28 H 112/91 93 05/23/22 08:00 05/23/22 10:01 05/23/22 10:01 05/23/22 10:01 05/23/22 10:01 Results - Labs CBC & Chem 7: 05/23/22 04:00 05/23/22 04:17 Labs: Laboratory Last Values WBC 8.7 K/mm3 (4.5-11.0) 05/23/22 04:00 RBC 2.84 M/mm3 (3.65-5.03) L 05/23/22 04:00 Hgb 8.4 gm/dl (11.8-15.2) L 05/23/22 04:00 Hct 25.5 % (35.5-45.6) L 05/23/22 04:00 MCV 90 fl (84-94) 05/23/22 04:00 MCH 30 pg (28-32) 05/23/22 04:00 MCHC 33 % (32-34) 05/23/22 04:00 RDW 20.5 % (13.2-15.2) H 05/23/22 04:00 Plt Count 108 K/mm3 (140-440) L 05/23/22 04:00 Lymph % (Auto) 16.2 % (13.4-35.0) 05/18/22 04:20 [place] % (Auto) 15.1 % (0.0-7.3) H 05/18/22 04:20 Eos % (Auto) 3.1 % (0.0-4.3) 05/18/22 04:20 Baso % (Auto) 1.1 % (0.0-1.8) 05/18/22 04:20 Lymph # (Auto) 0.5 K/mm3 (1.2-5.4) L 05/18/22 04:20 [place] # (Auto) 0.5 K/mm3 (0.0-0.8) 05/18/22 04:20 Eos # (Auto) 0.1 K/mm3 (0.0-0.4) 05/18/22 04:20 Baso # (Auto) 0.0 K/mm3 (0.0-0.1) 05/18/22 04:20 Seg Neutrophils % 64.5 % (40.0-70.0) 05/18/22 04:20 Seg Neutrophils # 2.0 K/mm3 (1.8-7.7) 05/18/22 04:20 ABG pH 7.367 pH Units (7.350-7.450) 05/18/22 06:00 ABG pCO2 44.9 mm Hg 05/18/22 06:00 ABG pO2 158.7 mm Hg (80.0-90.0) H 05/18/22 06:00 ABG HCO3 25.2 mmol/L (20.0-26.0) 05/18/22 06:00 ABG O2 Saturation 98.9 % (95.0-99.0) 05/18/22 06:00 ABG O2 Content 13.0 (0.0-44) 05/18/22 06:00 ABG Base Excess -0.3 mmol/L (-2.0-3.0) 05/18/22 06:00 ABG Hemoglobin 9.4 gm/dl (14.0-18.0) L 05/18/22 06:00 ABG Carboxyhemoglobin 2.3 % (0.0-5.0) 05/18/22 06:00 ABG Methemoglobin 0.5 % (0.0-1.5) 05/18/22 06:00 Oxyhemoglobin 96.2 % (95.0-99.0) 05/18/22 06:00 FiO2 40 % 05/18/22 06:00 Sodium 137 mmol/L (137-145) 05/23/22 04:17 Potassium 4.7 mmol/L (3.6-5.0) 05/23/22 04:17 Chloride 98.1 mmol/L (98-107) 05/23/22 04:17 Carbon Dioxide 25 mmol/L (22-30) 05/23/22 04:17 Anion Gap 19 mmol/L 05/23/22 04:17 BUN 32 mg/dL (9-20) H 05/23/22 04:17 Creatinine 4.1 mg/dL (0.8-1.3) H 05/23/22 04:17 Estimated GFR 15 ml/min 05/23/22 04:17 BUN/Creatinine Ratio 8 % 05/23/22 04:17 Glucose 107 mg/dL (75-100) H 05/23/22 04:17 POC Glucose 126 mg/dL (70-105) H 05/22/22 21:28 Calcium 8.8 mg/dL (8.4-10.2) 05/23/22 04:17 Phosphorus 2.30 mg/dL (2.5-4.5) L 05/23/22 04:17 Magnesium 2.00 mg/dL (1.7-2.3) 05/23/22 04:17 Total Bilirubin 0.40 mg/dL (0.1-1.2) 05/17/22 14:28 AST 7 units/L (5-40) 05/17/22 14:28 ALT < 5 units/L (7-56) L 05/17/22 14:28 Alkaline Phosphatase 78 units/L (35-129) 05/17/22 14:28 Total Protein 6.1 g/dL (6.3-8.2) L 05/17/22 14:28 Albumin 2.9 g/dL (3.9-5) L 05/17/22 14:28 Albumin/Globulin Ratio 0.9 % 05/17/22 14:28 Nasal Screen MRSA (PCR) Negative (Negative) 05/18/22 08:30 Coronavirus (PCR) Negative (Negative) 05/18/22 07:57 Hepatitis A IgM Ab Non-reactive (NonReactive) 05/18/22 18:10 Hep Bs Antigen Non-reactive (Negative) 05/18/22 18:10 Hep B Core IgM Ab Non-reactive (NonReactive) 05/18/22 18:10 Hepatitis C Antibody Reactive (NonReactive) A 05/18/22 18:10 Blood Type A NEGATIVE 05/22/22 06:00 Antibody Screen Negative 05/22/22 06:00 Crossmatch See Detail 05/22/22 06:00 Active Medications - Current Medications Current Medications: Generic Name Dose Route Start Last Admin Trade Name Freq PRN Reason Stop Dose Admin Acetaminophen 650 mg 05/17/22 14:26 Acetaminophen 325 Mg Tab PO Q4H PRN Pain MILD(1-3)/Fever >100.5/DYER Albumin Human 25 gm 05/18/22 09:10 05/22/22 14:54 Albumin Human 25% (25 Gm/100 Ml) Inj IV 25 gm TOM PRN Administration Hypotension Albuterol 2.5 mg 05/18/22 06:02 Albuterol 2.5 Mg/3 Ml Nebu IH Q3HRT PRN Wheezing Alprazolam 0.5 mg 05/20/22 08:34 05/23/22 02:26 Alprazolam 0.5 Mg Tab PO 0.5 mg BID PRN Administration Anxiety Aspirin 81 mg 05/21/22 10:00 05/23/22 09:24 Aspirin Ec 81 Mg Tab PO 81 mg QDAY DAQUAN Administration Dextrose 50 ml 05/18/22 15:00 Dextrose 50% In Water (25gm) 50 Ml Syringe IV Q30MIN PRN Hypoglycemia Protocol Diphenhydramine HCl 25 mg 05/20/22 13:30 05/20/22 13:30 Diphenhydramine 25 Mg Cap PO 25 mg Q6H PRN Administration Itching Docusate Sodium 100 mg 05/22/22 10:00 05/23/22 09:24 Docusate Sodium 100 Mg Cap PO 100 mg BID DAQUAN Administration Epoetin Jacinto-epbx 10,000 unit 05/18/22 09:10 05/22/22 16:56 Epoetin Jacinto-Epbx 10,000 Unit/1 Ml Vial IV 10,000 unit TOM PRN Administration hemodialysis Famotidine 20 mg 05/20/22 10:00 05/23/22 09:23 Famotidine 20 Mg Tab PO 20 mg QDAY DAQUAN Administration Dexmedetomidine HCl 400 mcg/ 104 mls @ 3.968 mls/hr 05/17/22 16:00 05/23/22 10:05 Sodium Chloride IV 0.2 mcg/kg/hr TITRATE DAQUAN 3.968 mls/hr Titration Protocol 0.2 MCG/KG/HR Sodium Chloride 100 mls @ 999 mls/hr 05/18/22 09:10 Nacl 0.9% IV TOM PRN Hypotension Losartan Potassium 100 mg 05/23/22 10:00 05/23/22 09:23 Losartan 50 Mg Tab PO 100 mg QDAY DAQUAN Administration Metoclopramide HCl 5 mg 05/18/22 09:00 05/19/22 07:53 Metoclopramide 10 Mg/2 Ml Inj IV 5 mg Q6H PRN Administration Nausea And Vomiting Metoprolol Tartrate 75 mg 05/23/22 10:00 05/23/22 09:25 Metoprolol Tartrate 25 Mg Tab PO 75 mg BID DAQUAN Administration Morphine Sulfate 2 mg 05/17/22 14:26 05/23/22 04:37 Morphine 2 Mg/1 Ml Inj IV 2 mg Q4H PRN Administration Pain, Moderate (4-6) Nifedipine 60 mg 05/23/22 10:00 05/23/22 09:24 Nifedipine Xl 60 Mg Tab PO 60 mg BID DAQUAN Administration Ondansetron HCl 4 mg 05/17/22 14:26 05/20/22 07:55 Ondansetron 4 Mg/2 Ml Inj IV 4 mg Q3H PRN Administration Nausea And Vomiting Oxycodone/Acetaminophen 1 tab 05/21/22 11:00 05/22/22 18:24 Oxycodone /Acetaminophen 5-325mg Tab PO 1 tab Q6H PRN Administration Pain, Moderate (4-6) Quetiapine Fumarate 75 mg 05/23/22 10:00 05/23/22 09:24 Quetiapine 25 Mg Tab PO 75 mg QDAY DAQUAN Administration Quetiapine Fumarate 25 mg 05/22/22 22:00 05/22/22 21:01 Quetiapine 25 Mg Tab PO 25 mg QHS DAQUAN Administration Quetiapine Fumarate 100 mg 05/22/22 22:00 05/22/22 21:00 Quetiapine 100 Mg Tab PO 100 mg QHS DAQUAN Administration Senna/Docusate Sodium 1 tab 05/22/22 22:00 05/22/22 21:00 Sennosides/Docusate Sodium 8.6/50 Mg Tab PO 1 tab QHS DAQUAN Administration Sodium Chloride 10 ml 05/17/22 22:00 05/23/22 09:25 Sodium Chloride 0.9% 10 Ml Flush Syringe IV 10 ml BID DAQUAN Administration Sodium Chloride 10 ml 05/17/22 14:26 Sodium Chloride 0.9% 10 Ml Flush Syringe IV PRN PRN LINE FLUSH Nutrition/Malnutrition Assess - Dietary Evaluation Nutrition/Malnutrition Findings: Nutrition Notes Start: 05/18/22 14:16 Freq: Status: Active Protocol: Document 05/20/22 12:37 LUCERO (Rec: 05/20/22 13:15 LUCERO [id number]) Nutrition Notes Initial or Follow up Reassessment Current Diagnosis CKD (stage V CKD),COPD, Hypertension,Malnutrition Other Pertinent Diagnosis Metabolic Encephalopathy, L- Elbow+Pelvic Fractures s/p Fall, ESRD+HD, Atria Current Diet Renal Diet (since D 05/19), D Suppl (since L 05/20). Labs/Tests 05/20: K 5.4, Cl 96.5, BUN 53, Crea 6.7, Glu 115, Ca 8.1, Phos 7.9. Pertinent Medications 05/20: Nutritionally unremarkable. 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 No body weight change reported in 2 days. Weight Status Appropriate Subjective/Other Information RD consult for routine F/U on TF tolerance/continuation assessment. TF was discontinued and Pt advanced to PO diet, No reports available on Pt's PO intake of meals at the time, will assess at F/U. prescribed dietary supplements, I will keep the prescription to compensate for possible poor or insufficient PO intake of meals during LOS . [address] [employer] note on 05/20/22 11:00: Received a repeat order to assess swallowing function. Spoke with the patient's nurse who was aware of the assessment which was conducted the previous day. Patient is safe for a regular diet. Will discharge the order. - END OF NOTE. Pt is on Room Air, O2 saturation @ 100%, according to Physical Assessment History notes. Pt was extubated on 05/19, well tolerated room air directly, according to Progress notes. Pt experienced a fall on 05/19 with subsequent L-elbow and pelvic fractures, according to Progress notes. Pt presents R-hand abrasions and neck surgical wound as signs of concern for skin risk at the time, according to Physical Assessment History notes. Percent of energy/protein needs met: Prescribed Renal Diet provides for energy/protein needs (2, 072 Kcal/77 g) during LOS; additionally, Dietary Supplements will compensate for possible poor or insufficient PO intake of meals with 850 Kcal and 38 g of protein. 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 Diagnosis Progress(for reassessment Resolved documentation) Is patient on ventilator? No Is Patient Ambulatory and/or Out of Bed Yes REE-([facility]-ambulatory/OOB) [ [id number]] Calculation Used for Recommendations [facility] Additional Notes Protein: >1.2 g/Kg ABW; >92 g/ day. Fluids: 1 ml/Kcal, or as per MD. Nutrition Intervention Change Diet Order: Continue Renal Diet as tolerated. Nutrition Support: Discontinued. Add Supplement/Snack (indicate name/kcal Continue 8 fl oz Nepro w/ /protein ) CARBSTEADY; BID. Provides kCal: 850 Provides Protein (gm) 38 Goal #1 Compensate, through dietary supplementation, for possible poor or insufficient PO intake of meals during LOS. Goal #2 Adjust the dietary intervention to better serve Pt's needs and clinical conditions during LOS. Follow-Up By: 05/27/22 Additional Comments Continue monitoring food tolerance, %PO intake of meals , dietary supplements, and BM.
--- NOTE | 2022-05-22 12:42 | Consultation ---
History of Present Illness - Reason for Consult Consult date: 05/22/22 Reason for consult: Mental health evaluation - Chief Complaint Chief complaint: Acute respiratory failure with hypoxia - History of Present Psychiatric Illness 56 year-old male patient with history of HTN, Cardiomyopathy, ESRD on dialysis, COPD, History of Cocaine abuse Originally admitted to [facility] on 03/23/22 for s/p fall and large Subdural hematoma with left shift and also hemoperitoneum.Patient undergone decompressive craniotomy.Patient also undergone paracentesis. Patient intubated and placed on mechanical ventilation subsequently has tracheostomy and PEG placement. Transfered to [facility] at that point. Patient weaned from the ventilator, subsequently decanulated. Patient tolerated decanulation well. Patient is on room air yesterday with 100% O2 saturation. Patient very anxious, May have seizure like activity, patients respiratory status detriorated, patient reintubated and placed on assist control mechanical ventilation. According to the chart, patient has history of smoking and Cocaine use. and has children. The patient is a 56 year old with history of cocaine use disorder, psych consult placed for increasing agitation. The patient was seen today with the nurse at bedside. He is alert and oriented to self. He is irritable and not engaging. PAST PSYCHIATRIC HISTORY: PAST MEDICAL HISTORY: None reported Family Psychiatric History: None reported or documented SOCIAL HISTORY REVIEW OF SYSTEMS MENTAL STATUS EXAMINATION Diagnoses: (1) HX Cocaine use disorder Treatment Plan: Continue Home meds I agree with the current treatment plan Patient should be compliant with medications and not to use drugs and not to drink alcohol. PSYCHOTHERAPY: Supportive psychotherapy provided MEDICAL: Per primary team DELIRIUM PRECAUTIONS: Please re-orient patient frequently, keep lights on during the day, and minimize benzodiazepines and opiates as these medications could worsen patient's confusion. DIRECTOR IT: Per medical team DISPOSITION:Do not recommend acute inpatient psychiatric hospitalization at this time. Statistical Methods Professor will provide patient with outpatient resources. FOLLOW-UP: Will sign off. Thank you for the consult. Please contact with any questions and/or concerns. Case staffed with Dr. Scott Medications and Allergies Medications and Allergies Allergies Allergy/AdvReac Type Severity Reaction Status Date / Time No Known Allergies Allergy Unverified 05/17/22 15:36 Home Medications Medication Instructions Recorded Confirmed Last Taken Type ALPRAZolam 0.5 mg PO BID 05/19/22 05/19/22 Unknown History Clopidogrel [Plavix] 75 mg PO QDAY 05/19/22 05/19/22 Unknown History Losartan [Cozaar] 100 mg PO QDAY 05/19/22 05/19/22 Unknown History Metoprolol [Lopressor TAB] 100 mg PO BID 05/19/22 05/19/22 Unknown History NIFEdipine [Nifedipine ER] 60 mg PO BID 05/19/22 05/19/22 Unknown History Oxycodone HCl/Acetaminophen 1 each PO Q8H PRN 05/19/22 05/19/22 Unknown History [Oxycodone-Acetaminophen 10-325] QUEtiapine [SEROquel] 50 mg PO BID 05/19/22 05/19/22 Unknown History Trelegy Ellipta 100-62.5-25 100 mcg INHALATION DAILY 05/19/22 05/19/22 Unknown History dilTIAZem [CarDIZEM] 180 mg PO BID 05/19/22 05/19/22 Unknown History Active Meds: Active Medications Acetaminophen (Acetaminophen 325 Mg Tab) 650 mg PO Q4H PRN PRN Reason: Pain MILD(1-3)/Fever >100.5/DYER Albumin Human (Albumin Human 25% (25 Gm/100 Ml) Inj) 25 gm IV TOM PRN PRN Reason: Hypotension Albuterol (Albuterol 2.5 Mg/3 Ml Nebu) 2.5 mg IH Q3HRT PRN PRN Reason: Wheezing Alprazolam (Alprazolam 0.5 Mg Tab) 0.5 mg PO BID PRN PRN Reason: Anxiety Last Admin: 05/20/22 14:43 Dose: 0.5 mg Aspirin (Aspirin Ec 81 Mg Tab) 81 mg PO QDAY [facility] Last Admin: 05/22/22 09:30 Dose: 81 mg Dextrose (Dextrose 50% In Water (25gm) 50 Ml Syringe) 50 ml IV Q30MIN PRN; Protocol PRN Reason: Hypoglycemia Diphenhydramine HCl (Diphenhydramine 25 Mg Cap) 25 mg PO Q6H PRN PRN Reason: Itching Last Admin: 05/20/22 13:30 Dose: 25 mg Docusate Sodium (Docusate Sodium 100 Mg Cap) 100 mg PO BID [facility] Last Admin: 05/22/22 09:30 Dose: 100 mg Epoetin Jacinto-epbx (Epoetin Jacinto-Epbx 10,000 Unit/1 Ml Vial) 10,000 unit IV TOM PRN PRN Reason: hemodialysis Last Admin: 05/20/22 17:25 Dose: 10,000 unit Famotidine (Famotidine 20 Mg Tab) 20 mg PO QDAY DAQUAN Last Admin: 05/22/22 09:30 Dose: 20 mg Dexmedetomidine HCl 400 mcg/ (Sodium Chloride) 104 mls @ 3.968 mls/hr IV TITRATE DAQUAN; Protocol Last Titration: 05/22/22 11:15 Dose: 0.4 mcg/kg/hr, 7.935 mls/hr Sodium Chloride (Nacl 0.9%) 100 mls @ 999 mls/hr IV TOM PRN PRN Reason: Hypotension Sodium Chloride (Nacl 0.9% 500 Ml) 500 mls @ 0 mls/hr IV ONCE NR Stop: 05/22/22 23:59 Losartan Potassium (Losartan 50 Mg Tab) 100 mg PO QDAY [facility] Metoclopramide HCl (Metoclopramide 10 Mg/2 Ml Inj) 5 mg IV Q6H PRN PRN Reason: Nausea And Vomiting Last Admin: 05/19/22 07:53 Dose: 5 mg Metoprolol Tartrate (Metoprolol Tartrate 5 Mg/5 Ml Inj) 2.5 mg IV Q6HR PRN PRN Reason: tachycardia Last Admin: 05/21/22 21:55 Dose: 2.5 mg Metoprolol Tartrate (Metoprolol Tartrate 100 Mg Tab) 50 mg PO BID [facility] Last Admin: 05/22/22 09:30 Dose: 50 mg Morphine Sulfate (Morphine 2 Mg/1 Ml Inj) 2 mg IV Q4H PRN PRN Reason: Pain, Moderate (4-6) Last Admin: 05/22/22 09:14 Dose: 2 mg Nifedipine (Nifedipine Xl 60 Mg Tab) 60 mg PO BID [facility] Ondansetron HCl (Ondansetron 4 Mg/2 Ml Inj) 4 mg IV Q3H PRN PRN Reason: Nausea And Vomiting Last Admin: 05/20/22 07:55 Dose: 4 mg Oxycodone/Acetaminophen (Oxycodone /Acetaminophen 5-325mg Tab) 1 tab PO Q6H PRN PRN Reason: Pain, Moderate (4-6) Last Admin: 05/22/22 12:34 Dose: 1 tab Quetiapine Fumarate (Quetiapine 25 Mg Tab) 50 mg PO QDAY [facility] Last Admin: 05/22/22 09:30 Dose: 50 mg Quetiapine Fumarate (Quetiapine 25 Mg Tab) 100 mg PO QHS [facility] Last Admin: 05/21/22 21:01 Dose: 100 mg Senna/Docusate Sodium (Sennosides/Docusate Sodium 8.6/50 Mg Tab) 1 tab PO QHS [facility] Sodium Chloride (Sodium Chloride 0.9% 10 Ml Flush Syringe) 10 ml IV BID [facility] Last Admin: 05/22/22 10:27 Dose: 10 ml Sodium Chloride (Sodium Chloride 0.9% 10 Ml Flush Syringe) 10 ml IV PRN PRN PRN Reason: LINE FLUSH Mental Status Exam - Vital signs Last Vital Signs Temp 97.6 F 05/22/22 12:00 Pulse 85 05/22/22 12:00 Resp 22 05/22/22 12:00 BP 102/60 05/22/22 12:00 Pulse Ox 93 05/22/22 12:00 Results Result Diagrams: 05/22/22 03:59 05/22/22 03:59 Abnormal lab results 05/21/22 05/21/22 05/22/22 Range/Units 17:00 20:52 03:59 RBC 2.31 L (3.65-5.03) M/mm3 Hgb 6.8 L (11.8-15.2) gm/dl Hct 20.3 L (35.5-45.6) % RDW 20.4 H (13.2-15.2) % Plt Count 103 L (140-440) K/mm3 Sodium (137-145) mmol/L Chloride (98-107) mmol/L BUN (9-20) mg/dL Creatinine (0.8-1.3) mg/dL POC Glucose 116 H 121 H (70-105) mg/dL Calcium (8.4-10.2) mg/dL Magnesium (1.7-2.3) mg/dL Crossmatch 05/22/22 05/22/22 05/22/22 Range/Units 03:59 06:00 07:33 RBC (3.65-5.03) M/mm3 Hgb (11.8-15.2) gm/dl Hct (35.5-45.6) % RDW (13.2-15.2) % Plt Count (140-440) K/mm3 Sodium 134 L (137-145) mmol/L Chloride 94.7 L (98-107) mmol/L BUN 44 H (9-20) mg/dL Creatinine 5.7 H (0.8-1.3) mg/dL POC Glucose 135 H (70-105) mg/dL Calcium 7.9 L (8.4-10.2) mg/dL Magnesium 1.60 L (1.7-2.3) mg/dL Crossmatch See Detail All other labs normal.
--- NOTE | 2022-05-22 13:00 | Progress Note ---
Assessment and Plan - Patient Problems (1) Rapid atrial fibrillation Current Visit: Yes Status: Acute Plan to address problem: 56-year-old man status post craniotomy for traumatic subdural hematoma, recovering in a long-term acute care facility, transferred to the hospital with respiratory distress. He has chronic atrial fibrillation, with increased ventricular rate associated with his acute respiratory decompensated. Echocardiogram shows left ventricular systolic ejection fraction 40 to 45%, with severe sclerosis of both aortic and mitral valves, and marked dilatation of both left and right atria. We will continue rate control strategy of atrial fibrillation. Following his recent craniotomy, and with ongoing anemia, he is not a candidate for oral anticoagulation at this time. Subjective Date of service: 05/22/22 Principal diagnosis: AHRF; AMS; Left SDH; ESRD on dialysis; COPD; H/O Cocaine abuse Interval history: Patient is comfortable no acute distress, no cardiac complaints. He does complain of generalized body aches and pains. He is requesting narcotic pain medications. On telemetry monitoring he has atrial fibrillation, with a well-controlled ventricular rate in the 90s. Objective Vital Signs Temp Pulse Pulse Resp Resp BP Pulse Ox 05/22/22 12:00 97.6 F 79 85 22 102/60 93 05/22/22 11:20 97.6 F 84 23 89/56 94 05/22/22 11:05 98.2 F 91 H 20 90/62 92 05/22/22 11:00 98 H 23 90/62 96 05/22/22 10:00 87 16 25 H 98/66 93 05/22/22 09:30 94 H 96/64 05/22/22 09:00 92 H 19 101/62 94 05/22/22 08:00 112 H 23 96/68 97 05/22/22 07:44 98.6 F 05/22/22 07:00 121 H 23 103/79 96 05/22/22 06:00 106 H 23 106/68 96 05/22/22 05:00 116 H 21 105/63 93 05/22/22 04:00 104 H 22 110/76 93 05/22/22 03:36 99.8 F H 05/22/22 03:00 100 H 17 105/73 05/22/22 02:00 116 H 23 106/74 91 05/22/22 01:00 122 H 23 105/76 96 05/22/22 00:00 100.4 F H 107 H 19 118/81 98 05/21/22 23:00 106 H 23 111/77 95 05/21/22 22:42 136 H 116/85 05/21/22 22:10 118 H 22 127/86 86 05/21/22 22:00 133 H 24 127/86 99 05/21/22 21:55 143 H 127/83 05/21/22 21:00 146 H 23 132/97 100 05/21/22 20:00 143 H 22 120/88 97 05/21/22 19:31 100.7 F H 05/21/22 19:16 93 05/21/22 19:00 120 H 18 99/70 96 05/21/22 18:00 120 H 17 91/67 92 05/21/22 17:00 103 H 18 108/78 95 05/21/22 16:00 98.2 F 104 H 94 H 19 102/75 96 05/21/22 15:00 84 17 89/60 94 05/21/22 14:00 81 16 105/69 93 05/21/22 13:00 96 H 19 90/62 93 - Physical Examination General: No Apparent Distress HEENT: Positive: PERRL Neck: Positive: neck supple Cardiac: Positive: Reg Rate and Rhythm Lungs: Positive: Decreased Breath Sounds Neuro: Positive: Weakness (Generalized lethargy) Abdomen: Positive: Soft Skin: Positive: Clear Extremities: Absent: edema - Labs and Meds CBC 05/22/22 Range/Units 03:59 WBC 4.9 (4.5-11.0) K/mm3 RBC 2.31 L (3.65-5.03) M/mm3 Hgb 6.8 L (11.8-15.2) gm/dl Hct 20.3 L (35.5-45.6) % Plt Count 103 L (140-440) K/mm3 Comprehensive Metabolic Panel 05/22/22 Range/Units 03:59 Sodium 134 L (137-145) mmol/L Potassium 4.7 (3.6-5.0) mmol/L Chloride 94.7 L (98-107) mmol/L Carbon Dioxide 26 (22-30) mmol/L BUN 44 H (9-20) mg/dL Creatinine 5.7 H (0.8-1.3) mg/dL Glucose 96 (75-100) mg/dL Calcium 7.9 L (8.4-10.2) mg/dL - Allied health notes Allied health notes reviewed: RT
--- NOTE | 2022-05-22 13:33 | Electrocardiograph Report ---
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
[2022-05-22] MEDS ORDERED: QUEtiapine 25 MG TAB PO SCH (14:15)
--- NOTE | 2022-05-22 14:15 | Consultation ---
History of Present Illness - HPI Consult date: 05/22/22 Consult reason: fracture Past History Past Medical History: atrial fib, COPD, dialysis, ESRD, hypertension, renal failure, other (Subdural hematoma, S/P craniotomy) Past Surgical History: Other (Evacuation of subdural hematoma. History of tracheostomy and PEG placement.) Social history: smoking, other (History of Cocaine abuse.) Medications and Allergies Allergies Allergy/AdvReac Type Severity Reaction Status Date / Time No Known Allergies Allergy Unverified 05/17/22 15:36 Home Medications Medication Instructions Recorded Confirmed Last Taken Type ALPRAZolam 0.5 mg PO BID 05/19/22 05/19/22 Unknown History Clopidogrel [Plavix] 75 mg PO QDAY 05/19/22 05/19/22 Unknown History Losartan [Cozaar] 100 mg PO QDAY 05/19/22 05/19/22 Unknown History Metoprolol [Lopressor TAB] 100 mg PO BID 05/19/22 05/19/22 Unknown History NIFEdipine [Nifedipine ER] 60 mg PO BID 05/19/22 05/19/22 Unknown History Oxycodone HCl/Acetaminophen 1 each PO Q8H PRN 05/19/22 05/19/22 Unknown History [Oxycodone-Acetaminophen 10-325] QUEtiapine [SEROquel] 50 mg PO BID 05/19/22 05/19/22 Unknown History Trelegy Ellipta 100-62.5-25 100 mcg INHALATION DAILY 05/19/22 05/19/22 Unknown History dilTIAZem [CarDIZEM] 180 mg PO BID 05/19/22 05/19/22 Unknown History Active Meds: Active Medications Acetaminophen (Acetaminophen 325 Mg Tab) 650 mg PO Q4H PRN PRN Reason: Pain MILD(1-3)/Fever >100.5/DYER Albumin Human (Albumin Human 25% (25 Gm/100 Ml) Inj) 25 gm IV TOM PRN PRN Reason: Hypotension Albuterol (Albuterol 2.5 Mg/3 Ml Nebu) 2.5 mg IH Q3HRT PRN PRN Reason: Wheezing Alprazolam (Alprazolam 0.5 Mg Tab) 0.5 mg PO BID PRN PRN Reason: Anxiety Last Admin: 05/20/22 14:43 Dose: 0.5 mg Aspirin (Aspirin Ec 81 Mg Tab) 81 mg PO QDAY [facility] Last Admin: 05/22/22 09:30 Dose: 81 mg Dextrose (Dextrose 50% In Water (25gm) 50 Ml Syringe) 50 ml IV Q30MIN PRN; Protocol PRN Reason: Hypoglycemia Diphenhydramine HCl (Diphenhydramine 25 Mg Cap) 25 mg PO Q6H PRN PRN Reason: Itching Last Admin: 05/20/22 13:30 Dose: 25 mg Docusate Sodium (Docusate Sodium 100 Mg Cap) 100 mg PO BID [facility] Last Admin: 05/22/22 09:30 Dose: 100 mg Epoetin Jacinto-epbx (Epoetin Jacinto-Epbx 10,000 Unit/1 Ml Vial) 10,000 unit IV TOM PRN PRN Reason: hemodialysis Last Admin: 05/20/22 17:25 Dose: 10,000 unit Famotidine (Famotidine 20 Mg Tab) 20 mg PO QDAY [facility] Last Admin: 05/22/22 09:30 Dose: 20 mg Dexmedetomidine HCl 400 mcg/ (Sodium Chloride) 104 mls @ 3.968 mls/hr IV TITRATE [facility]; Protocol Last Titration: 05/22/22 11:15 Dose: 0.4 mcg/kg/hr, 7.935 mls/hr Sodium Chloride (Nacl 0.9%) 100 mls @ 999 mls/hr IV TOM PRN PRN Reason: Hypotension Sodium Chloride (Nacl 0.9% 500 Ml) 500 mls @ 0 mls/hr IV ONCE NR Stop: 05/22/22 23:59 Losartan Potassium (Losartan 50 Mg Tab) 100 mg PO QDAY [facility] Metoclopramide HCl (Metoclopramide 10 Mg/2 Ml Inj) 5 mg IV Q6H PRN PRN Reason: Nausea And Vomiting Last Admin: 05/19/22 07:53 Dose: 5 mg Metoprolol Tartrate (Metoprolol Tartrate 5 Mg/5 Ml Inj) 2.5 mg IV Q6HR PRN PRN Reason: tachycardia Last Admin: 05/21/22 21:55 Dose: 2.5 mg Metoprolol Tartrate (Metoprolol Tartrate 100 Mg Tab) 50 mg PO BID [facility] Last Admin: 05/22/22 09:30 Dose: 50 mg Morphine Sulfate (Morphine 2 Mg/1 Ml Inj) 2 mg IV Q4H PRN PRN Reason: Pain, Moderate (4-6) Last Admin: 05/22/22 09:14 Dose: 2 mg Nifedipine (Nifedipine Xl 60 Mg Tab) 60 mg PO BID [facility] Ondansetron HCl (Ondansetron 4 Mg/2 Ml Inj) 4 mg IV Q3H PRN PRN Reason: Nausea And Vomiting Last Admin: 05/20/22 07:55 Dose: 4 mg Oxycodone/Acetaminophen (Oxycodone /Acetaminophen 5-325mg Tab) 1 tab PO Q6H PRN PRN Reason: Pain, Moderate (4-6) Last Admin: 05/22/22 12:34 Dose: 1 tab Quetiapine Fumarate (Quetiapine 25 Mg Tab) 75 mg PO QDAY [facility] Quetiapine Fumarate (Quetiapine 25 Mg Tab) 25 mg PO ONCE@1415 [facility] Stop: 05/22/22 18:15 Quetiapine Fumarate (Quetiapine 25 Mg Tab) 25 mg PO QHS [facility] Quetiapine Fumarate (Quetiapine 100 Mg Tab) 100 mg PO QHS [facility] Senna/Docusate Sodium (Sennosides/Docusate Sodium 8.6/50 Mg Tab) 1 tab PO QHS [facility] Sodium Chloride (Sodium Chloride 0.9% 10 Ml Flush Syringe) 10 ml IV BID [facility] Last Admin: 05/22/22 10:27 Dose: 10 ml Sodium Chloride (Sodium Chloride 0.9% 10 Ml Flush Syringe) 10 ml IV PRN PRN PRN Reason: LINE FLUSH Physical Examination - Physical exam Narrative exam: pelvis - tender at right pubic ramus, skin intact, no erythema noted, passive ROM dec... Assessment and Plan Stable pelvic fractures PT for gait training....
[2022-05-22] MEDS: EPOETIN ALFA-EPBX 10,000 UNIT/1 ML VIAL IV PRN (16:56)
[2022-05-22] MEDS: METOPROLOL TARTRATE 5 MG/5 ML INJ IV PRN (20:12)
[2022-05-22] MEDS: SENNOSIDES/DOCUSATE SODIUM 8.6/50 MG TAB PO SCH (21:00)
[2022-05-22] MEDS: QUEtiapine 100 MG TAB PO SCH (21:00)
[2022-05-22] MEDS ORDERED: METOPROLOL TARTRATE 5 MG/5 ML INJ IV ONE (22:53)
[2022-05-22 23:05] LABS: Hematocrit 24.1 % (35.5-45.6); Hemoglobin 7.9 gm/dl (11.8-15.2); Mean Corpuscular HGB Conc 33 % (32-34); Mean Corpuscular Volume 89 fl (84-94); Platelet Count 110 K/mm3 (140-440)
[2022-05-22 23:14] LABS: Red Cell Distribution Width 20.3 % (13.2-15.2)
[2022-05-23] MEDS: MORPHINE 2 MG/1 ML INJ IV PRN ×4 (00:15→22:11)
[2022-05-23] MEDS ORDERED: ALPRAZolam 0.25 MG TAB PO PRN (02:21)
[2022-05-23] MEDS: ALPRAZolam 0.5 MG TAB PO PRN ×4 (02:26→21:03)
[2022-05-23] MEDS ORDERED: dilTIAZem 25 MG/5 ML INJ IV ONE (03:52)
[2022-05-23 04:57] LABS: Hematocrit 25.5 % (35.5-45.6); Hemoglobin 8.4 gm/dl (11.8-15.2); Mean Corpuscular HGB Conc 33 % (32-34); Mean Corpuscular Volume 90 fl (84-94); Platelet Count 108 K/mm3 (140-440); Red Blood Count 2.84 M/mm3 (3.65-5.03)
[2022-05-23 05:02] LABS: Red Cell Distribution Width 20.5 % (13.2-15.2)
[2022-05-23 05:34] LABS: Calcium 8.8 mg/dL (8.4-10.2)
[2022-05-23] MEDS: LOSARTAN 50 MG TAB PO SCH (09:23)
[2022-05-23] MEDS: FAMOTIDINE 20 MG TAB PO SCH (09:23)
[2022-05-23] MEDS: NIFEdipine XL 60 MG TAB PO SCH ×2 (09:24→21:04)
[2022-05-23] MEDS: DOCUSATE SODIUM 100 MG CAP PO SCH ×2 (09:24→21:03)
[2022-05-23] MEDS: QUEtiapine 25 MG TAB PO SCH ×2 (09:24→21:03)
[2022-05-23] MEDS: ASPIRIN EC 81 MG TAB PO SCH (09:24)
[2022-05-23] MEDS: METOPROLOL TARTRATE 25 MG TAB PO SCH ×2 (09:25→21:05)
--- NOTE | 2022-05-23 10:03 | Progress Note ---
Assessment and Plan - Patient Problems (1) Hyperkalemia Current Visit: Yes Status: Acute Plan to address problem: levels have improved with hemodialysis. continue low potassium diet. (2) Acute respiratory failure with hypoxia Current Visit: Yes Status: Acute Plan to address problem: extubated at this time. (3) ESRD on dialysis Current Visit: Yes Status: Chronic Plan to address problem: continue Wednesday/Wednesday/Wednesday inpatient hemodialysis schedule. (4) Anemia in CKD (chronic kidney disease) Current Visit: Yes Status: Acute Plan to address problem: Continue HETAL therapy with HD. (5) HTN (hypertension) Current Visit: Yes Status: Chronic Qualifiers: Hypertension type: primary hypertension Qualified Code(s): I10 - Essential (primary) hypertension Plan to address problem: monitor blood pressures on her current regime Subjective Date of service: 05/23/22 Principal diagnosis: AHRF; AMS; Left SDH; ESRD on dialysis; COPD; H/O Cocaine abuse Interval history: Patient is awake, alert, in no acute distress Objective - Vital Signs Vital signs: Vital Signs - 12hr 05/22/22 05/22/22 05/22/22 22:29 23:00 23:27 Temperature 99.4 F Pulse Rate 130 H 143 H Pulse Rate [ From Monitor] Respiratory 25 H Rate Blood Pressure 140/87 140/101 O2 Sat by Pulse 94 Oximetry 05/23/22 05/23/22 05/23/22 00:00 00:08 01:00 Temperature Pulse Rate 130 H 142 H Pulse Rate [ 135 H From Monitor] Respiratory 18 25 H Rate Blood Pressure 128/81 120/92 O2 Sat by Pulse 96 91 92 Oximetry 05/23/22 05/23/22 05/23/22 02:00 03:01 03:14 Temperature 100.2 F H Pulse Rate 139 H 144 H Pulse Rate [ From Monitor] Respiratory 28 H 24 Rate Blood Pressure 132/102 129/95 O2 Sat by Pulse 95 92 Oximetry 05/23/22 05/23/22 05/23/22 03:15 04:00 04:01 Temperature 99.5 F Pulse Rate 140 H 125 H 109 H Pulse Rate [ 135 H From Monitor] Respiratory 18 21 Rate Blood Pressure 111/73 120/91 O2 Sat by Pulse 96 93 Oximetry 05/23/22 05/23/22 05/23/22 05:00 06:00 07:00 Temperature Pulse Rate 107 H 105 H 115 H Pulse Rate [ From Monitor] Respiratory 23 25 H 20 Rate Blood Pressure 140/91 143/101 133/91 O2 Sat by Pulse 89 93 Oximetry 05/23/22 05/23/22 07:49 08:00 Temperature 98.6 F Pulse Rate 107 H Pulse Rate [ 127 H From Monitor] Respiratory 22 Rate Blood Pressure 137/85 O2 Sat by Pulse 98 95 Oximetry - General Appearance General appearance: well-developed, appears stated age EENT: ATNC, PERRL, mucous membranes moist Neck: no JVD Respiratory: Present: Clear to Ascultation Cardiology: regular, S1S2 Gastrointestinal: normoactive bowel sounds Integumentary: no rash, other (no edema ) Neurologic: no focal deficit, alert and oriented x3, strength 5/5, CN 3-12 intact Psychiatric: mood/affect appropriate, cooperative - Lab 05/23/22 04:00 05/23/22 04:17 Most recent lab results ABG pH 7.367 pH Units (7.350-7.450) 05/18/22 06:00 ABG pCO2 44.9 mm Hg 05/18/22 06:00 ABG pO2 158.7 mm Hg (80.0-90.0) H 05/18/22 06:00 ABG HCO3 25.2 mmol/L (20.0-26.0) 05/18/22 06:00 ABG O2 Saturation 98.9 % (95.0-99.0) 05/18/22 06:00 Calcium 8.8 mg/dL (8.4-10.2) 05/23/22 04:17 Phosphorus 2.30 mg/dL (2.5-4.5) L 05/23/22 04:17 Magnesium 2.00 mg/dL (1.7-2.3) 05/23/22 04:17 Medications & Allergies - Medications Allergies/Adverse Reactions: Allergies No Known Allergies Allergy (Unverified 05/17/22 15:36) Home Medications: Home Medications Medication Instructions Recorded Confirmed Last Taken Type ALPRAZolam 0.5 mg PO BID 05/19/22 05/19/22 Unknown History Clopidogrel [Plavix] 75 mg PO QDAY 05/19/22 05/19/22 Unknown History Losartan [Cozaar] 100 mg PO QDAY 05/19/22 05/19/22 Unknown History Metoprolol [Lopressor TAB] 100 mg PO BID 05/19/22 05/19/22 Unknown History NIFEdipine [Nifedipine ER] 60 mg PO BID 05/19/22 05/19/22 Unknown History Oxycodone HCl/Acetaminophen 1 each PO Q8H PRN 05/19/22 05/19/22 Unknown History [Oxycodone-Acetaminophen 10-325] QUEtiapine [SEROquel] 50 mg PO BID 05/19/22 05/19/22 Unknown History Trelegy Ellipta 100-62.5-25 100 mcg INHALATION DAILY 05/19/22 05/19/22 Unknown History dilTIAZem [CarDIZEM] 180 mg PO BID 05/19/22 05/19/22 Unknown History Active Medications: Generic Name Dose Route Start Last Admin Trade Name Freq PRN Reason Stop Dose Admin Acetaminophen 650 mg 05/17/22 14:26 Acetaminophen 325 Mg Tab PO Q4H PRN Pain MILD(1-3)/Fever >100.5/DYER Albumin Human 25 gm 05/18/22 09:10 05/22/22 14:54 Albumin Human 25% (25 Gm/100 Ml) Inj IV 25 gm TOM PRN Administration Hypotension Albuterol 2.5 mg 05/18/22 06:02 Albuterol 2.5 Mg/3 Ml Nebu IH Q3HRT PRN Wheezing Alprazolam 0.5 mg 05/20/22 08:34 05/23/22 02:26 Alprazolam 0.5 Mg Tab PO 0.5 mg BID PRN Administration Anxiety Aspirin 81 mg 05/21/22 10:00 05/23/22 09:24 Aspirin Ec 81 Mg Tab PO 81 mg QDAY DAQUAN Administration Dextrose 50 ml 05/18/22 15:00 Dextrose 50% In Water (25gm) 50 Ml Syringe IV Q30MIN PRN Hypoglycemia Protocol Diphenhydramine HCl 25 mg 05/20/22 13:30 05/20/22 13:30 Diphenhydramine 25 Mg Cap PO 25 mg Q6H PRN Administration Itching Docusate Sodium 100 mg 05/22/22 10:00 05/23/22 09:24 Docusate Sodium 100 Mg Cap PO 100 mg BID DAQUAN Administration Epoetin Jacinto-epbx 10,000 unit 05/18/22 09:10 05/22/22 16:56 Epoetin Jacinto-Epbx 10,000 Unit/1 Ml Vial IV 10,000 unit TOM PRN Administration hemodialysis Famotidine 20 mg 05/20/22 10:00 05/23/22 09:23 Famotidine 20 Mg Tab PO 20 mg QDAY DAQUAN Administration Dexmedetomidine HCl 400 mcg/ 104 mls @ 3.968 mls/hr 05/17/22 16:00 05/23/22 07:56 Sodium Chloride IV 0.4 mcg/kg/hr TITRATE DAQUAN 7.935 mls/hr Administration Protocol 0.2 MCG/KG/HR Sodium Chloride 100 mls @ 999 mls/hr 05/18/22 09:10 Nacl 0.9% IV TOM PRN Hypotension Losartan Potassium 100 mg 05/23/22 10:00 05/23/22 09:23 Losartan 50 Mg Tab PO 100 mg QDAY DAQUAN Administration Metoclopramide HCl 5 mg 05/18/22 09:00 05/19/22 07:53 Metoclopramide 10 Mg/2 Ml Inj IV 5 mg Q6H PRN Administration Nausea And Vomiting Metoprolol Tartrate 75 mg 05/23/22 10:00 05/23/22 09:25 Metoprolol Tartrate 25 Mg Tab PO 75 mg BID DAQUAN Administration Morphine Sulfate 2 mg 05/17/22 14:26 05/23/22 04:37 Morphine 2 Mg/1 Ml Inj IV 2 mg Q4H PRN Administration Pain, Moderate (4-6) Nifedipine 60 mg 05/23/22 10:00 05/23/22 09:24 Nifedipine Xl 60 Mg Tab PO 60 mg BID DAQUAN Administration Ondansetron HCl 4 mg 05/17/22 14:26 05/20/22 07:55 Ondansetron 4 Mg/2 Ml Inj IV 4 mg Q3H PRN Administration Nausea And Vomiting Oxycodone/Acetaminophen 1 tab 05/21/22 11:00 05/22/22 18:24 Oxycodone /Acetaminophen 5-325mg Tab PO 1 tab Q6H PRN Administration Pain, Moderate (4-6) Quetiapine Fumarate 75 mg 05/23/22 10:00 05/23/22 09:24 Quetiapine 25 Mg Tab PO 75 mg QDAY DAQUAN Administration Quetiapine Fumarate 25 mg 05/22/22 22:00 05/22/22 21:01 Quetiapine 25 Mg Tab PO 25 mg QHS DAQUAN Administration Quetiapine Fumarate 100 mg 05/22/22 22:00 05/22/22 21:00 Quetiapine 100 Mg Tab PO 100 mg QHS DAQUAN Administration Senna/Docusate Sodium 1 tab 05/22/22 22:00 05/22/22 21:00 Sennosides/Docusate Sodium 8.6/50 Mg Tab PO 1 tab QHS DAQUAN Administration Sodium Chloride 10 ml 05/17/22 22:00 05/23/22 09:25 Sodium Chloride 0.9% 10 Ml Flush Syringe IV 10 ml BID DAQUAN Administration Sodium Chloride 10 ml 05/17/22 14:26 Sodium Chloride 0.9% 10 Ml Flush Syringe IV PRN PRN LINE FLUSH
--- NOTE | 2022-05-23 11:08 | Progress Note ---
Assessment and Plan Acute hypoxemic respiratory failure on mechanical ventilatory support Acute toxic metabolic encephalopathy Left subdural hematoma s/p evacuation End-stage renal disease on dialysis Right hip fracture Hypertension COPD CMOP H/O Cocaine abuse Oropharyngeal dysphagia Hyponatremia Anemia that is normocytic likely of chronic disease - to receive 1 unit PRBC's for serum Hb of 6.8 - continue Epogen with dialysis - wean Precedex re: clinical response - uptitrate Seroquel to aid weaning off Precedex - continue care as below otherwise; - conservative management for hip fracture - orthopedic consult placed earlier - pulmonary edema pattern should improve with extra UF sessions as tolerated - continue local wound care to trach stoma - continue to wean oxygen for O2 sat's > 90% - continue bronchodilators with pulmonary hygiene per RT -aspiration precautions, HOB >40 - continue to wean per pulmonary driven protocols - continue HD/UF per nephrology prescription for toxin and volume clearance - prn analgesia per pain score - follow clinically re: fever curves / trend WBC - Avoid delirium (no benzodiazepines if they can be avoided) - Maintain sleep-wake cycle - enteral nutrition at goal rate as tolerated - accucheck's with glycemic control per SSI for target blood glucose goal of < 180 mg/dL; Avoid hypoglycemia - VTE prophylaxis with Heparin - stress ulcer prophylaxis with Pantoprazole - mobility protocols for pressure ulcer prophylaxis - fall precautions - wound care management per RN / WCT - increase ambulation; PT/OT as tolerated - Supportive transfusions to keep Hb>7g/dL - CXR's and ABG's prn - continue to monitor neurologic function - continue chronic home medications as indicated - continue all supportive care ........ re-evaluate in am & prn Subjective Date of service: 05/23/22 Principal diagnosis: AHRF; AMS; Left SDH; ESRD on dialysis; COPD; H/O Cocaine abuse Interval history: CC:Patient is being seen today for Acute hypoxemic respiratory failure; AMS; Left SDH; ESRD on dialysis; COPD; H/O Cocaine abuse Subjective: Seen and examined at bedside; 24hr events reviewed; nursing and respiratory care staff consulted; no adverse overnight events reported to me; resting peacefully in bed; off Precedex drip; denies N/V/F/C Objective Vital Signs - 12hr 05/22/22 05/23/22 05/23/22 23:27 00:00 00:08 Temperature 99.4 F Pulse Rate 130 H Pulse Rate [ 135 H From Monitor] Respiratory 18 Rate Respiratory Rate [Hip] Blood Pressure 128/81 O2 Sat by Pulse 96 91 Oximetry 05/23/22 05/23/22 05/23/22 01:00 02:00 03:01 Temperature Pulse Rate 142 H 139 H 144 H Pulse Rate [ From Monitor] Respiratory 25 H 28 H 24 Rate Respiratory Rate [Hip] Blood Pressure 120/92 132/102 129/95 O2 Sat by Pulse 92 95 92 Oximetry 05/23/22 05/23/22 05/23/22 03:14 03:15 04:00 Temperature 100.2 F H 99.5 F Pulse Rate 140 H 125 H Pulse Rate [ 135 H From Monitor] Respiratory 18 Rate Respiratory Rate [Hip] Blood Pressure 111/73 O2 Sat by Pulse 96 Oximetry 05/23/22 05/23/22 05/23/22 04:01 05:00 06:00 Temperature Pulse Rate 109 H 107 H 105 H Pulse Rate [ From Monitor] Respiratory 21 23 25 H Rate Respiratory Rate [Hip] Blood Pressure 120/91 140/91 143/101 O2 Sat by Pulse 93 89 Oximetry 05/23/22 05/23/22 05/23/22 07:00 07:49 08:00 Temperature 98.6 F Pulse Rate 115 H 107 H Pulse Rate [ 127 H From Monitor] Respiratory 20 22 Rate Respiratory Rate [Hip] Blood Pressure 133/91 137/85 O2 Sat by Pulse 93 98 95 Oximetry 05/23/22 05/23/22 05/23/22 09:01 10:00 10:01 Temperature Pulse Rate 118 H 127 H Pulse Rate [ From Monitor] Respiratory 28 H Rate Respiratory 22 Rate [Hip] Blood Pressure 132/101 112/91 O2 Sat by Pulse 93 Oximetry Constitutional: no acute distress, asleep, other (middle aged male with normal respiratory effort at rest) Eyes: non-icteric ENT: oropharynx moist Neck: supple, no JVD Effort: normal Ascultation: Bilateral: diminished breath sounds, rales, rhonchi Percussion: Bilateral: not dull Cardiovascular: irregular rhythm Gastrointestinal: normoactive bowel sounds, soft, non-tender, non-distended, other (slightly distended.) Integumentary: normal, other (healed scalp craniotomy incision line) Extremities: no cyanosis, pink and warm, pulses normal, no ischemia or petechiae Neurologic: non-focal exam (grossly), pupils equal and round, CN II-XII normal Psychiatric: mood appropriate, affect normal CBC and BMP: 05/23/22 04:00 05/23/22 04:17 ABG, PT/INR, D-dimer: ABG ABG pH 7.367 pH Units (7.350-7.450) 05/18/22 06:00 ABG pCO2 44.9 mm Hg 05/18/22 06:00 ABG pO2 158.7 mm Hg (80.0-90.0) H 05/18/22 06:00 ABG O2 Saturation 98.9 % (95.0-99.0) 05/18/22 06:00 Abnormal lab findings: Abnormal Labs 05/17/22 05/17/22 05/17/22 14:26 14:28 15:10 WBC 4.0 L RBC 2.86 L Hgb 8.4 L Hct 24.9 L RDW 20.9 H Plt Count [place] % (Auto) 14.7 H Lymph # (Auto) 0.6 L ABG pO2 191.6 H ABG O2 Saturation 99.2 H ABG Hemoglobin 9.0 L Sodium 126 L Potassium 6.0 H Chloride 91.0 L BUN 42 H Creatinine 6.9 H Glucose POC Glucose Calcium Phosphorus Magnesium ALT < 5 L Total Protein 6.1 L Albumin 2.9 L Hepatitis C Antibody Crossmatch 05/18/22 05/18/22 05/18/22 04:13 04:20 06:00 WBC 3.0 L RBC 2.87 L Hgb 8.1 L Hct 25.3 L RDW 20.7 H Plt Count 127 L [place] % (Auto) 15.1 H Lymph # (Auto) 0.5 L ABG pO2 158.7 H ABG O2 Saturation ABG Hemoglobin 9.4 L Sodium 128 L Potassium 6.8 H* Chloride 93.7 L BUN 48 H Creatinine 6.8 H Glucose POC Glucose Calcium Phosphorus Magnesium ALT Total Protein Albumin Hepatitis C Antibody Crossmatch 05/18/22 05/18/22 05/18/22 17:49 18:10 23:15 WBC RBC Hgb Hct RDW Plt Count [place] % (Auto) Lymph # (Auto) ABG pO2 ABG O2 Saturation ABG Hemoglobin Sodium Potassium Chloride BUN Creatinine Glucose POC Glucose 144 H 145 H Calcium Phosphorus Magnesium ALT Total Protein Albumin Hepatitis C Antibody Reactive A Crossmatch 05/19/22 05/19/22 05/19/22 03:18 03:18 05:21 WBC 2.6 L RBC 2.94 L Hgb 8.5 L Hct 26.2 L RDW 20.3 H Plt Count 137 L [place] % (Auto) Lymph # (Auto) ABG pO2 ABG O2 Saturation ABG Hemoglobin Sodium Potassium 5.1 H D Chloride BUN 34 H Creatinine 4.9 H Glucose 130 H POC Glucose 143 H Calcium 8.3 L Phosphorus Magnesium ALT Total Protein Albumin Hepatitis C Antibody Crossmatch 05/19/22 05/19/22 05/20/22 11:23 17:48 00:01 WBC RBC Hgb Hct RDW Plt Count [place] % (Auto) Lymph # (Auto) ABG pO2 ABG O2 Saturation ABG Hemoglobin Sodium Potassium Chloride BUN Creatinine Glucose POC Glucose 127 H 156 H 142 H Calcium Phosphorus Magnesium ALT Total Protein Albumin Hepatitis C Antibody Crossmatch 05/20/22 05/20/22 05/20/22 04:31 04:31 17:44 WBC RBC 2.72 L Hgb 7.8 L Hct 24.1 L RDW 20.9 H Plt Count [place] % (Auto) Lymph # (Auto) ABG pO2 ABG O2 Saturation ABG Hemoglobin Sodium Potassium 5.4 H Chloride 96.5 L BUN 53 H Creatinine 6.7 H Glucose 115 H POC Glucose 132 H Calcium 8.1 L Phosphorus 7.90 H Magnesium ALT Total Protein Albumin Hepatitis C Antibody Crossmatch 05/21/22 05/21/22 05/21/22 04:13 07:50 11:43 WBC RBC Hgb Hct RDW Plt Count [place] % (Auto) Lymph # (Auto) ABG pO2 ABG O2 Saturation ABG Hemoglobin Sodium Potassium Chloride 97.7 L BUN 37 H Creatinine 4.9 H Glucose POC Glucose 111 H 109 H Calcium 8.0 L Phosphorus Magnesium ALT Total Protein Albumin Hepatitis C Antibody Crossmatch 05/21/22 05/21/22 05/22/22 17:00 20:52 03:59 WBC RBC 2.31 L Hgb 6.8 L Hct 20.3 L RDW 20.4 H Plt Count 103 L [place] % (Auto) Lymph # (Auto) ABG pO2 ABG O2 Saturation ABG Hemoglobin Sodium Potassium Chloride BUN Creatinine Glucose POC Glucose 116 H 121 H Calcium Phosphorus Magnesium ALT Total Protein Albumin Hepatitis C Antibody Crossmatch 05/22/22 05/22/22 05/22/22 03:59 06:00 07:33 WBC RBC Hgb Hct RDW Plt Count [place] % (Auto) Lymph # (Auto) ABG pO2 ABG O2 Saturation ABG Hemoglobin Sodium 134 L Potassium Chloride 94.7 L BUN 44 H Creatinine 5.7 H Glucose POC Glucose 135 H Calcium 7.9 L Phosphorus Magnesium 1.60 L ALT Total Protein Albumin Hepatitis C Antibody Crossmatch See Detail 05/22/22 05/22/22 05/22/22 16:55 21:28 22:53 WBC RBC 2.70 L Hgb 7.9 L Hct 24.1 L RDW 20.3 H Plt Count 110 L [place] % (Auto) Lymph # (Auto) ABG pO2 ABG O2 Saturation ABG Hemoglobin Sodium Potassium Chloride BUN Creatinine Glucose POC Glucose 146 H 126 H Calcium Phosphorus Magnesium ALT Total Protein Albumin Hepatitis C Antibody Crossmatch 05/22/22 05/22/22 05/23/22 22:53 22:53 04:00 WBC RBC 2.84 L Hgb 8.4 L Hct 25.5 L RDW 20.5 H Plt Count 108 L [place] % (Auto) Lymph # (Auto) ABG pO2 ABG O2 Saturation ABG Hemoglobin Sodium 136 L Potassium Chloride 97.6 L BUN 30 H Creatinine 3.9 H Glucose 132 H POC Glucose Calcium Phosphorus 2.20 L D Magnesium ALT Total Protein Albumin Hepatitis C Antibody Crossmatch 05/23/22 04:17 WBC RBC Hgb Hct RDW Plt Count [place] % (Auto) Lymph # (Auto) ABG pO2 ABG O2 Saturation ABG Hemoglobin Sodium Potassium Chloride BUN 32 H Creatinine 4.1 H Glucose 107 H POC Glucose Calcium Phosphorus 2.30 L Magnesium ALT Total Protein Albumin Hepatitis C Antibody Crossmatch Allied health notes reviewed: nursing
[2022-05-23] MEDS: oxyCODONE /ACETAMINOPHEN 5-325MG TAB PO PRN (11:47)
--- NOTE | 2022-05-23 12:42 | Progress Note ---
<ARIANA HARDY - Last Filed: 05/23/22 17:28> Assessment and Plan Assessment and plan: This is a 56-year-old male with HTN, cardiomyopathy, ESRD on HD, COPD, former cocaine abuser, SDH with left shift and hemoperitoneum s/p decompressive craniotomy and paracentesis, acute hypoxic respiratory failure s/p tracheostomy with eventual decannulation who was admitted with acute hypoxic respiratory failure requiring ventilatory support. Hospital course to date: 05/18: Patient is following commands remains sedated on Precedex. Patient will receive hemodialysis today. Likely will CPAP tomorrow. NG tube placed and started on tube feedings. 05/19: S/p extubation, stable on RA. Patient is s/p fall today, now c/o of Left elbow and pelvic pain. Orders placed for Lt. elbow X-ray and CT head/lumbar spine/pelvic. PRN analgesia orderd for pain control. Patient remains in Afib with RVR HR in the 120-130s, currently on PO amio. Patient's home meds list is available will resume home medications for rate control. Possible Cardiology consult if Afib RVR persists. Will keep patient in the ICU for another 24hrs post extubation, possible transfer to the floor tomorrow if patient remains stable. 05/20: Increase anxiety and agitation overnight, back on low dose precedex gtt. Lt. elbow X-ray and CT scans reviewed, fractures enthesophytes, superior and inferior pubic rami with soft tissue hematoma reported. H&H is stable, no s/s of any active bleeding. Ortho consulted for further eval and treat. Continue to trend CBC and PRN analgesia for pain control. Patient remains in Afib with RVR, on BB, BP stable. Given patient's current Afib with RVR, will continue VTE proph for now, awaiting Cardio and Ortho recommendations. Cardiology also consulted. Patient's home seroquel and antianxiety regime resumed. Wean off precedex gtt for RASS goal of 0 to -1. Plan for HD today per Nephro. PT/OT ordered. 05/21: Remains on precedex gtt due to increase agitation and combativeness overnight, symptoms resolved this am. Patient's family reported multiple psych issues since childhood. Seroquel adjusted and Mental health/psych consulted. Patient remains in Afib but in rate control this am. Cardiology recommendations appreciated, 2D echo pending. Attending also discussed with Ortho, with no indication of any surgery at this time. Ortho recommends PT/OT and weight bearing as tolerated. Full consult pending. JESSICA alston ordered. PRN analgesia for pain control. 2: Remains on precedex, more calm and appropriate this am. Remains on 2L NC, hypoxia noted overnight on RA, recent CXR noted with increase CHF/pulmonary edema. Patient remains in Afib but in control rate. 2D echo and cardiology recommendations noted. Patient with low BP this am, BB reduced to 50mg BID and antihypertensive therapy held today. H&H also dropped this am and worsen thrombocytopenia this am, no s/s of any active bleeding. Will hold AC for now, 1unit of PRBCs rdered and iHD today per Nephro. Patient has been refusing PT and OOB activity, still c/o of buttocks and hip pain. Continue to encourage OOB and physical therapy. PRN analgesia for pain control. Monitor and replace electrolytes as needed. 05/23: Mentation remains labile. Awake but still with periods of confusion and agitation. Off precedex gtt this am. Patient tolerated HD yesterday 3L removed, stable on 2L NC. In Afib with RVR, HR in 140s this am. D/w Cardio plan to adjust regimen therapy for rate control. Okay to transfer patient to [facility] per [facility]. Assessment and Plan Neuro: Acute Metabolic Encephalopathy-improved h/o SDH with left shift s/p decompressive craniotomy, h/o cocaine abuse/Spych issues S/p Fall -S/p extubation, off sedations -AAO, but with periods of disorientation, very impulsive -Remains on precedex overnight due to increase anxiety/agitation/combativeness -Patient's family reported multiple psych issues such as ADHD and since childhood -seroquel adjusted, continue PRN xanax -Wean precededx gtt for RASS goal 0 to -1 -Mental Health/psych consulted -Reorientation as needed -Maintain sleep-wake cycle -As needed analgesia -Fall precaution -PT/OT consulted Cardiac: Atrial Fibrilation with RVR, h/o cardiomyopathy, HTN -Patient remains in Afib, but in rate control this am. VSS -Cardiology consulted, appreciate recommendations -2D echo pending -Continue BB, reduced to 5omg BID and antihypertensive regimen held due to low BP -Blood pressure monitoring per protocol -Maintain SBP less than 160 -On Heparin SubQ Respiratory: Acute hypoxic respiratory failure, s/p tracheostomy with eventual decannulation, COPD -CCM consulted, appreciate recommendations -Intubated on 05/17 at OSH; 05/19 s/p extubation -Periods of Hypoxia on RA yesterday, now on 2L NC this am -Recent CXR reviewed, worsen CHF/pulmonary edema -Continue iHD per Nephro, 3L removed yesterday -Continue O2 supplementation and wean as tolerated -SPO2 monitoring for SPO2 goal aboev 92% -Of note patient self decannulated on 05/05 Superior and Inferior Pubic Rami fractures Left Enthesophytes Fracture S/p Fall -Noted from Lt. Elbow X-ray and CT scan, see report for details -Ortho consulted, appreciate recommendations -Attending also discussed with Ortho, with no indication of any surgery at this time. -Ortho recommends PT/OT and weight bearing as tolerated. -LUE sling ordered. -PT/OT consulted -Patient has been refusing PT and OOB activity -Fall precaution -Continue to encourage OOB and physical therapy -PRN Analgesia for pain control GI: Moderate protein calorie malnutrition -S/p PEG tube placement, however now off -Patient removed Richter catheter that was in the PEG-tube stoma, dressing present -Patient passed bedside swallow, renal diet ordered -Speech also following -S/p paracentesis at [facility] on 05/06 with removal of 2.7 L : ESRD on HD, hyperkalemia -Nephrology consulted, appreciate recommendations -Continue HD per Nephro -Monitor intake and output -Renally dose medications -Avoid nephrotoxic medications -Monitor and replace electrolytes as needed -Trend BMP Heme: Anemia of Chronic Disease, Thrombocytopenia -Probably chronic 2/2 of ESRD -H&H dropped this am with worsen thrombocytopenia -No s/s of any active bleeding -1unit of PRBCs ordered -Continue Epogen with iHD per Nephro -Will hold AC for now -Transfuse for hgb less than 7 ID: Sepsis (POA) -Leukopenia, CXR showed left-sided effusion with associated opacity and mild right basilar atelectasis -COVID-19 PCR negative, MRSA PCR negative -s/p Antibiotic therapy with cefepime -f/u blood culture -Monitor WBC and temperature curve GI/DVT Prophylaxis -PPI- pepcid -SCDs to bilateral lower extremities while in bed The high probability of a clinically significant, sudden or life threatening deterioration of the [multi] system(s) required my full and direct attention, intervention and personal management. The aggregate critical care time was [60] minutes. This time is in addition to time spent performing reported procedures but includes the following: [x] Data Review and interpretation [x] Patient assessment and monitoring of vital signs [x] Documentation [x] Medication orders and management Disposition Plan: ICU Total Time Spent with Patient (Minutes): 60 History Interval history: Patient seen and examined at the bedside. AAO, still with periods of confusion and agitation. In Afib with RVR this am, HR in the 110-140s, VSS. Off precedex gtt this morning Hospitalist Physical - Physical exam Narrative exam: General appearance: Present: no acute distress, well-nourished - EENT Eyes: Present: PERRL ENT: hearing intact - Neck Neck: Present: normal ROM - Respiratory Respiratory effort: normal Respiratory: bilateral: diminished - Cardiovascular Rhythm: irregularly irregular Heart Sounds: Present: S1 & S2 - Extremities Extremities: no ischemia, pulses intact, pulses symmetrical Peripheral Pulses: within normal limits - Abdominal General gastrointestinal: soft, non-distended, normal bowel sounds - Integumentary Integumentary: Present: warm, dry - Psychiatric Psychiatric: Calm and appropriate, cooperative, other (Impulsive at time) - Neurologic Neurologic: moves all extremities, other (AAO, but with periods of disorientation and impulsiveness) - Allied Health Allied health notes reviewed: nursing, case management - Constitutional Vitals: Temp Pulse Resp BP Pulse Ox 98.2 F 118 H 14 118/77 96 05/23/22 12:00 05/23/22 12:00 05/23/22 12:00 05/23/22 12:00 05/23/22 12:00 Results - Labs CBC & Chem 7: 05/23/22 04:00 05/23/22 04:17 Labs: Laboratory Last Values WBC 8.7 K/mm3 (4.5-11.0) 05/23/22 04:00 RBC 2.84 M/mm3 (3.65-5.03) L 05/23/22 04:00 Hgb 8.4 gm/dl (11.8-15.2) L 05/23/22 04:00 Hct 25.5 % (35.5-45.6) L 05/23/22 04:00 MCV 90 fl (84-94) 05/23/22 04:00 MCH 30 pg (28-32) 05/23/22 04:00 MCHC 33 % (32-34) 05/23/22 04:00 RDW 20.5 % (13.2-15.2) H 05/23/22 04:00 Plt Count 108 K/mm3 (140-440) L 05/23/22 04:00 Lymph % (Auto) 16.2 % (13.4-35.0) 05/18/22 04:20 Sully % (Auto) 15.1 % (0.0-7.3) H 05/18/22 04:20 Eos % (Auto) 3.1 % (0.0-4.3) 05/18/22 04:20 Baso % (Auto) 1.1 % (0.0-1.8) 05/18/22 04:20 Lymph # (Auto) 0.5 K/mm3 (1.2-5.4) L 05/18/22 04:20 Sully # (Auto) 0.5 K/mm3 (0.0-0.8) 05/18/22 04:20 Eos # (Auto) 0.1 K/mm3 (0.0-0.4) 05/18/22 04:20 Baso # (Auto) 0.0 K/mm3 (0.0-0.1) 05/18/22 04:20 Seg Neutrophils % 64.5 % (40.0-70.0) 05/18/22 04:20 Seg Neutrophils # 2.0 K/mm3 (1.8-7.7) 05/18/22 04:20 ABG pH 7.367 pH Units (7.350-7.450) 05/18/22 06:00 ABG pCO2 44.9 mm Hg 05/18/22 06:00 ABG pO2 158.7 mm Hg (80.0-90.0) H 05/18/22 06:00 ABG HCO3 25.2 mmol/L (20.0-26.0) 05/18/22 06:00 ABG O2 Saturation 98.9 % (95.0-99.0) 05/18/22 06:00 ABG O2 Content 13.0 (0.0-44) 05/18/22 06:00 ABG Base Excess -0.3 mmol/L (-2.0-3.0) 05/18/22 06:00 ABG Hemoglobin 9.4 gm/dl (14.0-18.0) L 05/18/22 06:00 ABG Carboxyhemoglobin 2.3 % (0.0-5.0) 05/18/22 06:00 ABG Methemoglobin 0.5 % (0.0-1.5) 05/18/22 06:00 Oxyhemoglobin 96.2 % (95.0-99.0) 05/18/22 06:00 FiO2 40 % 05/18/22 06:00 Sodium 137 mmol/L (137-145) 05/23/22 04:17 Potassium 4.7 mmol/L (3.6-5.0) 05/23/22 04:17 Chloride 98.1 mmol/L (98-107) 05/23/22 04:17 Carbon Dioxide 25 mmol/L (22-30) 05/23/22 04:17 Anion Gap 19 mmol/L 05/23/22 04:17 BUN 32 mg/dL (9-20) H 05/23/22 04:17 Creatinine 4.1 mg/dL (0.8-1.3) H 05/23/22 04:17 Estimated GFR 15 ml/min 05/23/22 04:17 BUN/Creatinine Ratio 8 % 05/23/22 04:17 Glucose 107 mg/dL (75-100) H 05/23/22 04:17 POC Glucose 126 mg/dL (70-105) H 05/22/22 21:28 Calcium 8.8 mg/dL (8.4-10.2) 05/23/22 04:17 Phosphorus 2.30 mg/dL (2.5-4.5) L 05/23/22 04:17 Magnesium 2.00 mg/dL (1.7-2.3) 05/23/22 04:17 Total Bilirubin 0.40 mg/dL (0.1-1.2) 05/17/22 14:28 AST 7 units/L (5-40) 05/17/22 14:28 ALT < 5 units/L (7-56) L 05/17/22 14:28 Alkaline Phosphatase 78 units/L (35-129) 05/17/22 14:28 Total Protein 6.1 g/dL (6.3-8.2) L 05/17/22 14:28 Albumin 2.9 g/dL (3.9-5) L 05/17/22 14:28 Albumin/Globulin Ratio 0.9 % 05/17/22 14:28 Nasal Screen MRSA (PCR) Negative (Negative) 05/18/22 08:30 Coronavirus (PCR) Negative (Negative) 05/18/22 07:57 Hepatitis A IgM Ab Non-reactive (NonReactive) 05/18/22 18:10 Hep Bs Antigen Non-reactive (Negative) 05/18/22 18:10 Hep B Core IgM Ab Non-reactive (NonReactive) 05/18/22 18:10 Hepatitis C Antibody Reactive (NonReactive) A 05/18/22 18:10 Blood Type A NEGATIVE 05/22/22 06:00 Antibody Screen Negative 05/22/22 06:00 Crossmatch See Detail 05/22/22 06:00 Active Medications - Current Medications Current Medications: Generic Name Dose Route Start Last Admin Trade Name Freq PRN Reason Stop Dose Admin Acetaminophen 650 mg 05/17/22 14:26 Acetaminophen 325 Mg Tab PO Q4H PRN Pain MILD(1-3)/Fever >100.5/DYER Albumin Human 25 gm 05/18/22 09:10 05/22/22 14:54 Albumin Human 25% (25 Gm/100 Ml) Inj IV 25 gm TOM PRN Administration Hypotension Albuterol 2.5 mg 05/18/22 06:02 Albuterol 2.5 Mg/3 Ml Nebu IH Q3HRT PRN Wheezing Alprazolam 0.5 mg 05/20/22 08:34 05/23/22 02:26 Alprazolam 0.5 Mg Tab PO 0.5 mg BID PRN Administration Anxiety Aspirin 81 mg 05/21/22 10:00 05/23/22 09:24 Aspirin Ec 81 Mg Tab PO 81 mg QDAY DAQUAN Administration Dextrose 50 ml 05/18/22 15:00 Dextrose 50% In Water (25gm) 50 Ml Syringe IV Q30MIN PRN Hypoglycemia Protocol Diphenhydramine HCl 25 mg 05/20/22 13:30 05/20/22 13:30 Diphenhydramine 25 Mg Cap PO 25 mg Q6H PRN Administration Itching Docusate Sodium 100 mg 05/22/22 10:00 05/23/22 09:24 Docusate Sodium 100 Mg Cap PO 100 mg BID DAQUAN Administration Epoetin Jacinto-epbx 10,000 unit 05/18/22 09:10 05/22/22 16:56 Epoetin Jacinto-Epbx 10,000 Unit/1 Ml Vial IV 10,000 unit TOM PRN Administration hemodialysis Famotidine 20 mg 05/20/22 10:00 05/23/22 09:23 Famotidine 20 Mg Tab PO 20 mg QDAY DAQUAN Administration Dexmedetomidine HCl 400 mcg/ 104 mls @ 3.968 mls/hr 05/17/22 16:00 05/23/22 11:00 Sodium Chloride IV 0 mcg/kg/hr TITRATE DAQUAN 0 mls/hr Titration Protocol 0.2 MCG/KG/HR Sodium Chloride 100 mls @ 999 mls/hr 05/18/22 09:10 Nacl 0.9% IV TOM PRN Hypotension Losartan Potassium 100 mg 05/23/22 10:00 05/23/22 09:23 Losartan 50 Mg Tab PO 100 mg QDAY DAQUAN Administration Metoclopramide HCl 5 mg 05/18/22 09:00 05/19/22 07:53 Metoclopramide 10 Mg/2 Ml Inj IV 5 mg Q6H PRN Administration Nausea And Vomiting Metoprolol Tartrate 75 mg 05/23/22 10:00 05/23/22 09:25 Metoprolol Tartrate 25 Mg Tab PO 75 mg BID DAQUAN Administration Morphine Sulfate 2 mg 05/17/22 14:26 05/23/22 04:37 Morphine 2 Mg/1 Ml Inj IV 2 mg Q4H PRN Administration Pain, Moderate (4-6) Nifedipine 60 mg 05/23/22 10:00 05/23/22 09:24 Nifedipine Xl 60 Mg Tab PO 60 mg BID DAQUAN Administration Ondansetron HCl 4 mg 05/17/22 14:26 05/20/22 07:55 Ondansetron 4 Mg/2 Ml Inj IV 4 mg Q3H PRN Administration Nausea And Vomiting Oxycodone/Acetaminophen 1 tab 05/21/22 11:00 05/23/22 11:47 Oxycodone /Acetaminophen 5-325mg Tab PO 1 tab Q6H PRN Administration Pain, Moderate (4-6) Quetiapine Fumarate 75 mg 05/23/22 10:00 05/23/22 09:24 Quetiapine 25 Mg Tab PO 75 mg QDAY DAQUAN Administration Quetiapine Fumarate 25 mg 05/22/22 22:00 05/22/22 21:01 Quetiapine 25 Mg Tab PO 25 mg QHS DAQUAN Administration Quetiapine Fumarate 100 mg 05/22/22 22:00 05/22/22 21:00 Quetiapine 100 Mg Tab PO 100 mg QHS DAQUAN Administration Senna/Docusate Sodium 1 tab 05/22/22 22:00 05/22/22 21:00 Sennosides/Docusate Sodium 8.6/50 Mg Tab PO 1 tab QHS DAQUAN Administration Sodium Chloride 10 ml 05/17/22 22:00 05/23/22 09:25 Sodium Chloride 0.9% 10 Ml Flush Syringe IV 10 ml BID DAQUAN Administration Sodium Chloride 10 ml 05/17/22 14:26 Sodium Chloride 0.9% 10 Ml Flush Syringe IV PRN PRN LINE FLUSH Nutrition/Malnutrition Assess - Dietary Evaluation Nutrition/Malnutrition Findings: Nutrition Notes Start: 05/18/22 14:16 Freq: Status: Active Protocol: Document 05/20/22 12:37 LUCERO (Rec: 05/20/22 13:15 LUCERO [id number]) Nutrition Notes Initial or Follow up Reassessment Current Diagnosis CKD (stage V CKD),COPD, Hypertension,Malnutrition Other Pertinent Diagnosis Metabolic Encephalopathy, L- Elbow+Pelvic Fractures s/p Fall, ESRD+HD, Atria Current Diet Renal Diet (since D 05/19), D Suppl (since L 05/20). Labs/Tests 05/20: K 5.4, Cl 96.5, BUN 53, Crea 6.7, Glu 115, Ca 8.1, Phos 7.9. Pertinent Medications 05/20: Nutritionally unremarkable. 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 No body weight change reported in 2 days. Weight Status Appropriate Subjective/Other Information RD consult for routine F/U on TF tolerance/continuation assessment. TF was discontinued and Pt advanced to PO diet, No reports available on Pt's PO intake of meals at the time, will assess at F/U. MD prescribed dietary supplements, I will keep the prescription to compensate for possible poor or insufficient PO intake of meals during LOS . SIZE PAINTER note on 05/20/22 11:00: Received a repeat order to assess swallowing function. Spoke with the patient's nurse who was aware of the assessment which was conducted the previous day. Patient is safe for a regular diet. Will discharge the order. - END OF NOTE. Pt is on Room Air, O2 saturation @ 100%, according to Physical Assessment History notes. Pt was extubated on 05/19, well tolerated room air directly, according to Progress notes. Pt experienced a fall on 05/19 with subsequent L-elbow and pelvic fractures, according to Progress notes. Pt presents R-hand abrasions and neck surgical wound as signs of concern for skin risk at the time, according to Physical Assessment History notes. Percent of energy/protein needs met: Prescribed Renal Diet provides for energy/protein needs (2, 072 Kcal/77 g) during LOS; additionally, Dietary Supplements will compensate for possible poor or insufficient PO intake of meals with 850 Kcal and 38 g of protein. Burn Absent Trauma Present GI Symptoms None Food Allergy No Skin Integrity/Comment R-hand abrasions+neck surgical woun Minimum of two criteria No Fluid Accumulation N/A Reduced Court Liaison Strength N/A (non-severe) Protein-Calorie Malnutrition N\A #1 Nutrition Diagnosis Swallowing difficulty Comments: TF was discontinued and Pt advanced to PO diet on 05/19. Diagnosis Progress(for reassessment Resolved documentation) Is patient on ventilator? No Is Patient Ambulatory and/or Out of Bed Yes REE-([place]-St. Jeor-ambulatory/OOB) [ [id number] [id number]] Calculation Used for Recommendations [place] Jeor Additional Notes Protein: >1.2 g/Kg ABW; >92 g/ day. Fluids: 1 ml/Kcal, or as per MD. Nutrition Intervention Change Diet Order: Continue Renal Diet as tolerated. Nutrition Support: Discontinued. Add Supplement/Snack (indicate name/kcal Continue 8 fl oz Nepro w/ /protein ) CARBSTEADY; BID. Provides kCal: 850 Provides Protein (gm) 38 Goal #1 Compensate, through dietary supplementation, for possible poor or insufficient PO intake of meals during LOS. Goal #2 Adjust the dietary intervention to better serve Pt's needs and clinical conditions during LOS. Follow-Up By: 05/27/22 Additional Comments Continue monitoring food tolerance, %PO intake of meals , dietary supplements, and BM. <SARAH AVITIA - Last Filed: 05/24/22 07:37> Assessment and Plan Assessment and plan: I saw and evaluated the patient. I agree with the findings and the plan of care as documented in the Nurse Practitioner's~note, with the following corrections and additions. Hospitalist Physical - Constitutional Vitals: Temp Pulse Resp BP Pulse Ox 99.6 F 120 H 29 H 121/84 91 05/24/22 05:33 05/24/22 05:00 05/24/22 05:00 05/24/22 05:00 05/24/22 05:00 Results - Labs CBC & Chem 7: 05/23/22 04:00 05/24/22 05:15 Labs: Laboratory Last Values WBC 8.7 K/mm3 (4.5-11.0) 05/23/22 04:00 RBC 2.84 M/mm3 (3.65-5.03) L 05/23/22 04:00 Hgb 8.4 gm/dl (11.8-15.2) L 05/23/22 04:00 Hct 25.5 % (35.5-45.6) L 05/23/22 04:00 MCV 90 fl (84-94) 05/23/22 04:00 MCH 30 pg (28-32) 05/23/22 04:00 MCHC 33 % (32-34) 05/23/22 04:00 RDW 20.5 % (13.2-15.2) H 05/23/22 04:00 Plt Count 108 K/mm3 (140-440) L 05/23/22 04:00 Lymph % (Auto) 16.2 % (13.4-35.0) 05/18/22 04:20 Sully % (Auto) 15.1 % (0.0-7.3) H 05/18/22 04:20 Eos % (Auto) 3.1 % (0.0-4.3) 05/18/22 04:20 Baso % (Auto) 1.1 % (0.0-1.8) 05/18/22 04:20 Lymph # (Auto) 0.5 K/mm3 (1.2-5.4) L 05/18/22 04:20 Sully # (Auto) 0.5 K/mm3 (0.0-0.8) 05/18/22 04:20 Eos # (Auto) 0.1 K/mm3 (0.0-0.4) 05/18/22 04:20 Baso # (Auto) 0.0 K/mm3 (0.0-0.1) 05/18/22 04:20 Seg Neutrophils % 64.5 % (40.0-70.0) 05/18/22 04:20 Seg Neutrophils # 2.0 K/mm3 (1.8-7.7) 05/18/22 04:20 ABG pH 7.367 pH Units (7.350-7.450) 05/18/22 06:00 ABG pCO2 44.9 mm Hg 05/18/22 06:00 ABG pO2 158.7 mm Hg (80.0-90.0) H 05/18/22 06:00 ABG HCO3 25.2 mmol/L (20.0-26.0) 05/18/22 06:00 ABG O2 Saturation 98.9 % (95.0-99.0) 05/18/22 06:00 ABG O2 Content 13.0 (0.0-44) 05/18/22 06:00 ABG Base Excess -0.3 mmol/L (-2.0-3.0) 05/18/22 06:00 ABG Hemoglobin 9.4 gm/dl (14.0-18.0) L 05/18/22 06:00 ABG Carboxyhemoglobin 2.3 % (0.0-5.0) 05/18/22 06:00 ABG Methemoglobin 0.5 % (0.0-1.5) 05/18/22 06:00 Oxyhemoglobin 96.2 % (95.0-99.0) 05/18/22 06:00 FiO2 40 % 05/18/22 06:00 Sodium 134 mmol/L (137-145) L 05/24/22 05:15 Potassium 5.8 mmol/L (3.6-5.0) H D 05/24/22 05:15 Chloride 96.4 mmol/L (98-107) L 05/24/22 05:15 Carbon Dioxide 23 mmol/L (22-30) 05/24/22 05:15 Anion Gap 20 mmol/L 05/24/22 05:15 BUN 48 mg/dL (9-20) H 05/24/22 05:15 Creatinine 5.4 mg/dL (0.8-1.3) H 05/24/22 05:15 Estimated GFR 11 ml/min 05/24/22 05:15 BUN/Creatinine Ratio 9 % 05/24/22 05:15 Glucose 98 mg/dL (75-100) 05/24/22 05:15 POC Glucose 126 mg/dL (70-105) H 05/22/22 21:28 Calcium 8.9 mg/dL (8.4-10.2) 05/24/22 05:15 Phosphorus 3.90 mg/dL (2.5-4.5) D 05/24/22 05:15 Magnesium 2.20 mg/dL (1.7-2.3) 05/24/22 05:15 Total Bilirubin 0.40 mg/dL (0.1-1.2) 05/17/22 14:28 AST 7 units/L (5-40) 05/17/22 14:28 ALT < 5 units/L (7-56) L 05/17/22 14:28 Alkaline Phosphatase 78 units/L (35-129) 05/17/22 14:28 Total Protein 6.1 g/dL (6.3-8.2) L 05/17/22 14:28 Albumin 2.9 g/dL (3.9-5) L 05/17/22 14:28 Albumin/Globulin Ratio 0.9 % 05/17/22 14:28 Nasal Screen MRSA (PCR) Negative (Negative) 05/18/22 08:30 Coronavirus (PCR) Negative (Negative) 05/18/22 07:57 Hepatitis A IgM Ab Non-reactive (NonReactive) 05/18/22 18:10 Hep Bs Antigen Non-reactive (Negative) 05/18/22 18:10 Hep B Core IgM Ab Non-reactive (NonReactive) 05/18/22 18:10 Hepatitis C Antibody Reactive (NonReactive) A 05/18/22 18:10 Blood Type A NEGATIVE 05/22/22 06:00 Antibody Screen Negative 05/22/22 06:00 Crossmatch See Detail 05/22/22 06:00 Active Medications - Current Medications Current Medications: Generic Name Dose Route Start Last Admin Trade Name Freq PRN Reason Stop Dose Admin Acetaminophen 650 mg 05/17/22 14:26 05/24/22 01:13 Acetaminophen 325 Mg Tab PO 650 mg Q4H PRN Administration Pain MILD(1-3)/Fever >100.5/DYER Albumin Human 25 gm 05/18/22 09:10 05/22/22 14:54 Albumin Human 25% (25 Gm/100 Ml) Inj IV 25 gm TOM PRN Administration Hypotension Albuterol 2.5 mg 05/18/22 06:02 Albuterol 2.5 Mg/3 Ml Nebu IH Q3HRT PRN Wheezing Alprazolam 0.5 mg 05/23/22 12:50 05/23/22 21:03 Alprazolam 0.5 Mg Tab PO 0.5 mg Q8HR PRN Administration Anxiety/agitation Aspirin 81 mg 05/21/22 10:00 05/23/22 09:24 Aspirin Ec 81 Mg Tab PO 81 mg QDAY DAQUAN Administration Dextrose 50 ml 05/18/22 15:00 Dextrose 50% In Water (25gm) 50 Ml Syringe IV Q30MIN PRN Hypoglycemia Protocol Diphenhydramine HCl 25 mg 05/20/22 13:30 05/23/22 20:00 Diphenhydramine 25 Mg Cap PO 25 mg Q6H PRN Administration Itching Docusate Sodium 100 mg 05/22/22 10:00 05/23/22 21:03 Docusate Sodium 100 Mg Cap PO 100 mg BID DAQUAN Administration Epoetin Jacinto-epbx 10,000 unit 05/18/22 09:10 05/22/22 16:56 Epoetin Jacinto-Epbx 10,000 Unit/1 Ml Vial IV 10,000 unit TOM PRN Administration hemodialysis Famotidine 20 mg 05/20/22 10:00 05/23/22 09:23 Famotidine 20 Mg Tab PO 20 mg QDAY DAQUAN Administration Sodium Chloride 100 mls @ 999 mls/hr 05/18/22 09:10 Nacl 0.9% IV TOM PRN Hypotension Losartan Potassium 100 mg 05/23/22 10:00 05/23/22 09:23 Losartan 50 Mg Tab PO 100 mg QDAY DAQUAN Administration Metoclopramide HCl 5 mg 05/18/22 09:00 05/19/22 07:53 Metoclopramide 10 Mg/2 Ml Inj IV 5 mg Q6H PRN Administration Nausea And Vomiting Metoprolol Tartrate 75 mg 05/23/22 10:00 05/23/22 21:05 Metoprolol Tartrate 25 Mg Tab PO 75 mg BID DAQUAN Administration Morphine Sulfate 2 mg 05/17/22 14:26 05/23/22 22:11 Morphine 2 Mg/1 Ml Inj IV 2 mg Q4H PRN Administration Pain, Moderate (4-6) Nifedipine 60 mg 05/23/22 10:00 05/23/22 21:04 Nifedipine Xl 60 Mg Tab PO 60 mg BID DAQUAN Administration Ondansetron HCl 4 mg 05/17/22 14:26 05/20/22 07:55 Ondansetron 4 Mg/2 Ml Inj IV 4 mg Q3H PRN Administration Nausea And Vomiting Oxycodone/Acetaminophen 1 tab 05/21/22 11:00 05/24/22 01:14 Oxycodone /Acetaminophen 5-325mg Tab PO 1 tab Q6H PRN Administration Pain, Moderate (4-6) Quetiapine Fumarate 75 mg 05/23/22 10:00 05/23/22 09:24 Quetiapine 25 Mg Tab PO 75 mg QDAY DAQUAN Administration Quetiapine Fumarate 25 mg 05/22/22 22:00 05/23/22 21:03 Quetiapine 25 Mg Tab PO 25 mg QHS DAQUAN Administration Quetiapine Fumarate 100 mg 05/22/22 22:00 05/23/22 21:04 Quetiapine 100 Mg Tab PO 100 mg QHS DAQUAN Administration Senna/Docusate Sodium 1 tab 05/22/22 22:00 05/23/22 21:05 Sennosides/Docusate Sodium 8.6/50 Mg Tab PO 1 tab QHS DAQUAN Administration Sodium Chloride 10 ml 05/17/22 22:00 05/23/22 21:06 Sodium Chloride 0.9% 10 Ml Flush Syringe IV 10 ml BID DAQUAN Administration Sodium Chloride 10 ml 05/17/22 14:26 Sodium Chloride 0.9% 10 Ml Flush Syringe IV PRN PRN LINE FLUSH Nutrition/Malnutrition Assess - Dietary Evaluation Nutrition/Malnutrition Findings: Nutrition Notes Start: 05/18/22 14:16 Freq: Status: Active Protocol: Document 05/20/22 12:37 LUCERO (Rec: 05/20/22 13:15 LUCERO [id number]) Nutrition Notes Initial or Follow up Reassessment Current Diagnosis CKD (stage V CKD),COPD, Hypertension,Malnutrition Other Pertinent Diagnosis Metabolic Encephalopathy, L- Elbow+Pelvic Fractures s/p Fall, ESRD+HD, Atria Current Diet Renal Diet (since D 05/19), D Suppl (since L 05/20). Labs/Tests 05/20: K 5.4, Cl 96.5, BUN 53, Crea 6.7, Glu 115, Ca 8.1, Phos 7.9. Pertinent Medications 05/20: Nutritionally unremarkable. 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 No body weight change reported in 2 days. Weight Status Appropriate Subjective/Other Information RD consult for routine F/U on TF tolerance/continuation assessment. TF was discontinued and Pt advanced to PO diet, No reports available on Pt's PO intake of meals at the time, will assess at F/U. MD prescribed dietary supplements, I will keep the prescription to compensate for possible poor or insufficient PO intake of meals during LOS . SIZE PAINTER note on 05/20/22 11:00: Received a repeat order to assess swallowing function. Spoke with the patient's nurse who was aware of the assessment which was conducted the previous day. Patient is safe for a regular diet. Will discharge the order. - END OF NOTE. Pt is on Room Air, O2 saturation @ 100%, according to Physical Assessment History notes. Pt was extubated on 05/19, well tolerated room air directly, according to Progress notes. Pt experienced a fall on 05/19 with subsequent L-elbow and pelvic fractures, according to Progress notes. Pt presents R-hand abrasions and neck surgical wound as signs of concern for skin risk at the time, according to Physical Assessment History notes. Percent of energy/protein needs met: Prescribed Renal Diet provides for energy/protein needs (2, 072 Kcal/77 g) during LOS; additionally, Dietary Supplements will compensate for possible poor or insufficient PO intake of meals with 850 Kcal and 38 g of protein. Burn Absent Trauma Present GI Symptoms None Food Allergy No Skin Integrity/Comment R-hand abrasions+neck surgical woun Minimum of two criteria No Fluid Accumulation N/A Reduced Court Liaison Strength N/A (non-severe) Protein-Calorie Malnutrition N\A #1 Nutrition Diagnosis Swallowing difficulty Comments: TF was discontinued and Pt advanced to PO diet on 05/19. Diagnosis Progress(for reassessment Resolved documentation) Is patient on ventilator? No Is Patient Ambulatory and/or Out of Bed Yes REE-([facility]-ambulatory/OOB) [ [id number] [id number]] Calculation Used for Recommendations [facility] Additional Notes Protein: >1.2 g/Kg ABW; >92 g/ day. Fluids: 1 ml/Kcal, or as per MD. Nutrition Intervention Change Diet Order: Continue Renal Diet as tolerated. Nutrition Support: Discontinued. Add Supplement/Snack (indicate name/kcal Continue 8 fl oz Nepro w/ /protein ) CARBSTEADY; BID. Provides kCal: 850 Provides Protein (gm) 38 Goal #1 Compensate, through dietary supplementation, for possible poor or insufficient PO intake of meals during LOS. Goal #2 Adjust the dietary intervention to better serve Pt's needs and clinical conditions during LOS. Follow-Up By: 05/27/22 Additional Comments Continue monitoring food tolerance, %PO intake of meals , dietary supplements, and BM.
--- NOTE | 2022-05-23 13:14 | Progress Note ---
Assessment and Plan 1. Permanent atrial fibrillation 2. 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 Unspecified cardiomyopathy with mild systolic dysfunction left ventricular ejection fraction of 40 to 45% 4. Chronic obstructive pulmonary disease 5. End-stage renal disease on hemodialysis 6. Status postcraniotomy for traumatic subdural hematoma 7. History of cocaine abuse Plan Increase metoprolol 100 mg twice a day change nifedipine to Cardizem. No anticoagulation given recent subdural hematoma Subjective Date of service: 05/23/22 Principal diagnosis: AHRF; AMS; Left SDH; ESRD on dialysis; COPD; H/O Cocaine abuse Interval history: Alert complains of everything in no apparent distress Objective Vital Signs Temp Pulse Pulse Resp Resp BP Pulse Ox 05/23/22 12:00 98.2 F 109 H 118 H 18 118/77 96 05/23/22 11:00 109 H 21 118/74 97 05/23/22 10:01 127 H 28 H 112/91 93 05/23/22 10:00 22 05/23/22 09:01 118 H 132/101 05/23/22 08:00 98.6 F 107 H 127 H 22 137/85 95 05/23/22 07:49 98 05/23/22 07:00 115 H 20 133/91 93 05/23/22 06:00 105 H 25 H 143/101 05/23/22 05:00 107 H 23 140/91 89 05/23/22 04:01 109 H 21 120/91 93 05/23/22 04:00 99.5 F 125 H 135 H 18 96 05/23/22 03:15 140 H 111/73 05/23/22 03:14 100.2 F H 05/23/22 03:01 144 H 24 129/95 92 05/23/22 02:00 139 H 28 H 132/102 95 05/23/22 01:00 142 H 25 H 120/92 92 05/23/22 00:08 91 05/23/22 00:00 130 H 135 H 18 128/81 96 05/22/22 23:27 99.4 F 05/22/22 23:00 143 H 25 H 140/101 94 05/22/22 22:29 130 H 140/87 05/22/22 22:00 131 H 21 22 139/94 91 05/22/22 21:00 125 H 25 H 120/90 86 05/22/22 20:12 141 H 142/86 05/22/22 20:00 80 115 H 18 132/87 96 05/22/22 19:24 98.4 F 05/22/22 19:00 110 H 20 120/75 91 05/22/22 18:10 97 H 19 120/76 92 05/22/22 18:00 98 H 21 113/73 94 05/22/22 17:00 103 H 14 104/69 93 05/22/22 16:45 98.2 F 90 18 112/71 05/22/22 16:30 92 H 109/69 05/22/22 16:15 89 114/75 05/22/22 16:00 98.2 F 84 15 114/75 95 05/22/22 15:49 89 18 96 05/22/22 15:45 87 120/72 05/22/22 15:30 88 118/78 05/22/22 15:15 93 H 128/76 05/22/22 15:00 92 H 14 113/77 94 05/22/22 14:45 90 107/64 05/22/22 14:30 92 H 102/68 05/22/22 14:15 92 H 107/70 05/22/22 14:00 99 H 20 111/67 94 05/22/22 13:45 96 H 114/77 05/22/22 13:30 86 104/79 05/22/22 13:15 97.6 F 80 19 97/63 Pulse Ox 05/23/22 12:00 05/23/22 11:00 05/23/22 10:01 05/23/22 10:00 05/23/22 09:01 05/23/22 08:00 05/23/22 07:49 05/23/22 07:00 05/23/22 06:00 05/23/22 05:00 05/23/22 04:01 05/23/22 04:00 05/23/22 03:15 05/23/22 03:14 05/23/22 03:01 05/23/22 02:00 05/23/22 01:00 05/23/22 00:08 05/23/22 00:00 05/22/22 23:27 05/22/22 23:00 05/22/22 22:29 05/22/22 22:00 05/22/22 21:00 05/22/22 20:12 05/22/22 20:00 05/22/22 19:24 05/22/22 19:00 05/22/22 18:10 05/22/22 18:00 05/22/22 17:00 05/22/22 16:45 96 05/22/22 16:30 05/22/22 16:15 05/22/22 16:00 05/22/22 15:49 05/22/22 15:45 05/22/22 15:30 05/22/22 15:15 05/22/22 15:00 05/22/22 14:45 05/22/22 14:30 05/22/22 14:15 05/22/22 14:00 05/22/22 13:45 05/22/22 13:30 05/22/22 13:15 95 - Physical Examination General: No Apparent Distress HEENT: Positive: PERRL Neck: Positive: neck supple Cardiac: Positive: Regular Rate, irregularly irregular, S1/S2, S3, S4, PMI, Dilated, Laterally Displaced Lungs: Positive: clear to auscultation, No Wheeze, Rales, Rhonchi Neuro: Positive: Weakness (Generalized lethargy) Abdomen: Positive: Soft Skin: Positive: Clear Extremities: Absent: edema - Labs and Meds CBC 05/22/22 05/23/22 Range/Units 22:53 04:00 WBC 7.8 8.7 (4.5-11.0) K/mm3 RBC 2.70 L 2.84 L (3.65-5.03) M/mm3 Hgb 7.9 L 8.4 L (11.8-15.2) gm/dl Hct 24.1 L 25.5 L (35.5-45.6) % Plt Count 110 L 108 L (140-440) K/mm3 Comprehensive Metabolic Panel 05/22/22 05/23/22 Range/Units 22:53 04:17 Sodium 136 L 137 (137-145) mmol/L Potassium 4.4 4.7 (3.6-5.0) mmol/L Chloride 97.6 L 98.1 (98-107) mmol/L Carbon Dioxide 28 25 (22-30) mmol/L BUN 30 H 32 H (9-20) mg/dL Creatinine 3.9 H 4.1 H (0.8-1.3) mg/dL Glucose 132 H 107 H (75-100) mg/dL Calcium 9.0 8.8 (8.4-10.2) mg/dL - Allied health notes Allied health notes reviewed: nursing
[2022-05-23] MEDS: diphenhydrAMINE 25 MG CAP PO PRN (20:00)
[2022-05-23] MEDS: QUEtiapine 100 MG TAB PO SCH (21:04)
[2022-05-23] MEDS: SENNOSIDES/DOCUSATE SODIUM 8.6/50 MG TAB PO SCH (21:05)
[2022-05-24] MEDS: oxyCODONE /ACETAMINOPHEN 5-325MG TAB PO PRN (01:14)
[2022-05-24 06:35] LABS: Calcium 8.9 mg/dL (8.4-10.2)
[2022-05-24] MEDS ORDERED: SODIUM CHLORIDE 0.9% 100 ML IV PRN (08:11)
--- NOTE | 2022-05-24 08:11 | Progress Note ---
Assessment and Plan - Patient Problems (1) Hyperkalemia Current Visit: Yes Status: Acute Plan to address problem: Will another HD to day for volume control and correcion of hyperkalemia. continue low potassium diet. (2) Acute respiratory failure with hypoxia Current Visit: Yes Status: Acute Plan to address problem: Arranged another HD today for additional fluid removal and solute clearance (3) ESRD on dialysis Current Visit: Yes Status: Chronic Plan to address problem: HD today, then continue Wednesday/Wednesday/Wednesday inpatient hemodialysis schedule. (4) Anemia in CKD (chronic kidney disease) Current Visit: Yes Status: Acute Plan to address problem: Continue HETAL therapy with HD. (5) HTN (hypertension) Current Visit: Yes Status: Chronic Qualifiers: Hypertension type: primary hypertension Qualified Code(s): I10 - Essential (primary) hypertension Plan to address problem: monitor blood pressures on her current regime Subjective Date of service: 05/24/22 Principal diagnosis: AHRF; AMS; Left SDH; ESRD on dialysis; COPD; H/O Cocaine abuse Interval history: Patient with acute respiratory distress with hypoxia this AM, repeat CXR showed interval worsening of R pleural effusion and R pulmonary opacities. Objective - Vital Signs Vital signs: Vital Signs - 12hr 05/23/22 05/23/22 05/23/22 20:15 21:00 21:05 Temperature Pulse Rate 129 H 134 H 115 H Pulse Rate [ From Monitor] Respiratory 24 Rate Blood Pressure 114/76 124/76 O2 Sat by Pulse 80 L Oximetry 05/23/22 05/23/22 05/23/22 22:00 22:11 22:41 Temperature Pulse Rate 127 H Pulse Rate [ From Monitor] Respiratory 23 23 24 Rate Blood Pressure 127/82 O2 Sat by Pulse 83 L Oximetry 05/23/22 05/23/22 05/24/22 23:00 23:46 00:00 Temperature 100.3 F H Pulse Rate 125 H 128 H Pulse Rate [ From Monitor] Respiratory 22 25 H Rate Blood Pressure 115/90 117/89 O2 Sat by Pulse 100 100 97 Oximetry 05/24/22 05/24/22 05/24/22 01:00 01:13 01:14 Temperature Pulse Rate 129 H Pulse Rate [ From Monitor] Respiratory 26 H 28 H 28 H Rate Blood Pressure 111/84 O2 Sat by Pulse 98 Oximetry 05/24/22 05/24/22 05/24/22 02:00 02:13 02:14 Temperature Pulse Rate 134 H Pulse Rate [ From Monitor] Respiratory 26 H 24 24 Rate Blood Pressure 111/84 O2 Sat by Pulse 93 Oximetry 05/24/22 05/24/22 05/24/22 03:00 03:40 04:00 Temperature Pulse Rate 123 H 118 H 123 H Pulse Rate [ 123 H From Monitor] Respiratory 27 H 21 Rate Blood Pressure 118/84 116/80 O2 Sat by Pulse 93 92 Oximetry 05/24/22 05/24/22 05/24/22 05:00 05:33 06:00 Temperature 99.6 F Pulse Rate 120 H 126 H Pulse Rate [ From Monitor] Respiratory 29 H 23 Rate Blood Pressure 121/84 106/70 O2 Sat by Pulse 91 96 Oximetry 05/24/22 07:00 Temperature Pulse Rate 122 H Pulse Rate [ From Monitor] Respiratory 20 Rate Blood Pressure 108/78 O2 Sat by Pulse 93 Oximetry - General Appearance General appearance: well-developed, appears stated age EENT: ATNC, PERRL, mucous membranes moist Respiratory: Present: Decreased Breath Sounds Cardiology: regular, S1S2 Gastrointestinal: normoactive bowel sounds Integumentary: no rash, other (+ edema ) Neurologic: no focal deficit, confused, disoriented - Lab 05/24/22 08:15 05/24/22 05:15 Most recent lab results ABG pH 7.367 pH Units (7.350-7.450) 05/18/22 06:00 ABG pCO2 44.9 mm Hg 05/18/22 06:00 ABG pO2 158.7 mm Hg (80.0-90.0) H 05/18/22 06:00 ABG HCO3 25.2 mmol/L (20.0-26.0) 05/18/22 06:00 ABG O2 Saturation 98.9 % (95.0-99.0) 05/18/22 06:00 Calcium 8.9 mg/dL (8.4-10.2) 05/24/22 05:15 Phosphorus 3.90 mg/dL (2.5-4.5) D 05/24/22 05:15 Magnesium 2.20 mg/dL (1.7-2.3) 05/24/22 05:15 Medications & Allergies - Medications Allergies/Adverse Reactions: Allergies No Known Allergies Allergy (Unverified 05/17/22 15:36) Home Medications: Home Medications Medication Instructions Recorded Confirmed Last Taken Type ALPRAZolam 0.5 mg PO BID 05/19/22 05/19/22 Unknown History Clopidogrel [Plavix] 75 mg PO QDAY 05/19/22 05/19/22 Unknown History Losartan [Cozaar] 100 mg PO QDAY 05/19/22 05/19/22 Unknown History Metoprolol [Lopressor TAB] 100 mg PO BID 05/19/22 05/19/22 Unknown History NIFEdipine [Nifedipine ER] 60 mg PO BID 05/19/22 05/19/22 Unknown History Oxycodone HCl/Acetaminophen 1 each PO Q8H PRN 05/19/22 05/19/22 Unknown History [Oxycodone-Acetaminophen 10-325] QUEtiapine [SEROquel] 50 mg PO BID 05/19/22 05/19/22 Unknown History Trelegy Ellipta 100-62.5-25 100 mcg INHALATION DAILY 05/19/22 05/19/22 Unknown History dilTIAZem [CarDIZEM] 180 mg PO BID 05/19/22 05/19/22 Unknown History Active Medications: Generic Name Dose Route Start Last Admin Trade Name Freq PRN Reason Stop Dose Admin Acetaminophen 650 mg 05/17/22 14:26 05/24/22 01:13 Acetaminophen 325 Mg Tab PO 650 mg Q4H PRN Administration Pain MILD(1-3)/Fever >100.5/DYER Albumin Human 25 gm 05/18/22 09:10 05/22/22 14:54 Albumin Human 25% (25 Gm/100 Ml) Inj IV 25 gm TOM PRN Administration Hypotension Albuterol 2.5 mg 05/18/22 06:02 Albuterol 2.5 Mg/3 Ml Nebu IH Q3HRT PRN Wheezing Alprazolam 0.5 mg 05/23/22 12:50 05/23/22 21:03 Alprazolam 0.5 Mg Tab PO 0.5 mg Q8HR PRN Administration Anxiety/agitation Aspirin 81 mg 05/21/22 10:00 05/23/22 09:24 Aspirin Ec 81 Mg Tab PO 81 mg QDAY DAQUAN Administration Dextrose 50 ml 05/18/22 15:00 Dextrose 50% In Water (25gm) 50 Ml Syringe IV Q30MIN PRN Hypoglycemia Protocol Diphenhydramine HCl 25 mg 05/20/22 13:30 05/23/22 20:00 Diphenhydramine 25 Mg Cap PO 25 mg Q6H PRN Administration Itching Docusate Sodium 100 mg 05/22/22 10:00 05/23/22 21:03 Docusate Sodium 100 Mg Cap PO 100 mg BID DAQUAN Administration Epoetin Jacinto-epbx 10,000 unit 05/18/22 09:10 05/22/22 16:56 Epoetin Jacinto-Epbx 10,000 Unit/1 Ml Vial IV 10,000 unit TOM PRN Administration hemodialysis Famotidine 20 mg 05/20/22 10:00 05/23/22 09:23 Famotidine 20 Mg Tab PO 20 mg QDAY DAQUAN Administration Sodium Chloride 100 mls @ 999 mls/hr 05/18/22 09:10 Nacl 0.9% IV TOM PRN Hypotension Losartan Potassium 100 mg 05/23/22 10:00 05/23/22 09:23 Losartan 50 Mg Tab PO 100 mg QDAY DAQUAN Administration Metoclopramide HCl 5 mg 05/18/22 09:00 05/19/22 07:53 Metoclopramide 10 Mg/2 Ml Inj IV 5 mg Q6H PRN Administration Nausea And Vomiting Metoprolol Tartrate 75 mg 05/23/22 10:00 05/23/22 21:05 Metoprolol Tartrate 25 Mg Tab PO 75 mg BID DAQUAN Administration Morphine Sulfate 2 mg 05/17/22 14:26 05/23/22 22:11 Morphine 2 Mg/1 Ml Inj IV 2 mg Q4H PRN Administration Pain, Moderate (4-6) Nifedipine 60 mg 05/23/22 10:00 05/23/22 21:04 Nifedipine Xl 60 Mg Tab PO 60 mg BID DAQUAN Administration Ondansetron HCl 4 mg 05/17/22 14:26 05/20/22 07:55 Ondansetron 4 Mg/2 Ml Inj IV 4 mg Q3H PRN Administration Nausea And Vomiting Oxycodone/Acetaminophen 1 tab 05/21/22 11:00 05/24/22 01:14 Oxycodone /Acetaminophen 5-325mg Tab PO 1 tab Q6H PRN Administration Pain, Moderate (4-6) Quetiapine Fumarate 75 mg 05/23/22 10:00 05/23/22 09:24 Quetiapine 25 Mg Tab PO 75 mg QDAY DAQUAN Administration Quetiapine Fumarate 25 mg 05/22/22 22:00 05/23/22 21:03 Quetiapine 25 Mg Tab PO 25 mg QHS DAQUAN Administration Quetiapine Fumarate 100 mg 05/22/22 22:00 05/23/22 21:04 Quetiapine 100 Mg Tab PO 100 mg QHS DAQUAN Administration Senna/Docusate Sodium 1 tab 05/22/22 22:00 05/23/22 21:05 Sennosides/Docusate Sodium 8.6/50 Mg Tab PO 1 tab QHS DAQUAN Administration Sodium Chloride 10 ml 05/17/22 22:00 05/23/22 21:06 Sodium Chloride 0.9% 10 Ml Flush Syringe IV 10 ml BID DAQUAN Administration Sodium Chloride 10 ml 05/17/22 14:26 Sodium Chloride 0.9% 10 Ml Flush Syringe IV PRN PRN LINE FLUSH
[2022-05-24 08:43] LABS: Basophils % (Auto) 0.5 % (0.0-1.8); Eosinophils # (Auto) 0.1 K/mm3 (0.0-0.4); Hematocrit 24.6 % (35.5-45.6); Lymphocytes # (Auto) 0.5 K/mm3 (1.2-5.4); Mean Corpuscular HGB Conc 33 % (32-34); Mean Corpuscular Volume 89 fl (84-94); Monocytes # (Auto) 0.9 K/mm3 (0.0-0.8); Monocytes % (Auto) 9.7 % (0.0-7.3); Platelet Count 133 K/mm3 (140-440); Red Blood Count 2.79 M/mm3 (3.65-5.03)
[2022-05-24 08:44] LABS: Red Cell Distribution Width 20.2 % (13.2-15.2)
--- NOTE | 2022-05-24 09:12 | XRay Report ---
CHEST 1 VIEW 05/24/2022 8:38 AM INDICATION / CLINICAL INFORMATION: respiratory failure. COMPARISON: 05/21/22 FINDINGS: SUPPORT DEVICES: None. HEART / MEDIASTINUM: Enlarged but stable. LUNGS / PLEURA: Interval increase in moderate right pleural effusion with right lung pulmonary opacit ies. Interval improvement in left lung pulmonary opacities and effusion. No pneumothorax. ADDITIONAL FINDINGS: No significant additional findings. IMPRESSION: 1. Interval worsening of right lung with interval improvement in the left lung findings. Signer Name: Lu Salinas MD Signed: 05/24/2022 9:08 AM Workstation Name: [id number]
--- NOTE | 2022-05-24 09:36 | Progress Note ---
Assessment and Plan Assessment and plan: This is a 56-year-old male with HTN, cardiomyopathy, ESRD on HD, COPD, former cocaine abuser, SDH with left shift and hemoperitoneum s/p decompressive craniotomy and paracentesis, acute hypoxic respiratory failure s/p tracheostomy with eventual decannulation who was admitted with acute hypoxic respiratory failure requiring ventilatory support. Hospital course to date: 05/18: Patient is following commands remains sedated on Precedex. Patient will receive hemodialysis today. Likely will CPAP tomorrow. NG tube placed and started on tube feedings. 05/19: S/p extubation, stable on RA. Patient is s/p fall today, now c/o of Left elbow and pelvic pain. Orders placed for Lt. elbow X-ray and CT head/lumbar spine/pelvic. PRN analgesia orderd for pain control. Patient remains in Afib with RVR HR in the 120-130s, currently on PO amio. Patient's home meds list is available will resume home medications for rate control. Possible Cardiology consult if Afib RVR persists. Will keep patient in the ICU for another 24hrs post extubation, possible transfer to the floor tomorrow if patient remains stable. 05/20: Increase anxiety and agitation overnight, back on low dose precedex gtt. Lt. elbow X-ray and CT scans reviewed, fractures enthesophytes, superior and inferior pubic rami with soft tissue hematoma reported. H&H is stable, no s/s of any active bleeding. Ortho consulted for further eval and treat. Continue to trend CBC and PRN analgesia for pain control. Patient remains in Afib with RVR, on BB, BP stable. Given patient's current Afib with RVR, will continue VTE proph for now, awaiting Cardio and Ortho recommendations. Cardiology also consulted. Patient's home seroquel and antianxiety regime resumed. Wean off precedex gtt for RASS goal of 0 to -1. Plan for HD today per Nephro. PT/OT ordered. 05/21: Remains on precedex gtt due to increase agitation and combativeness overnight, symptoms resolved this am. Patient's family reported multiple psych issues since childhood. Seroquel adjusted and Mental health/psych consulted. Patient remains in Afib but in rate control this am. Cardiology recommendations appreciated, 2D echo pending. Attending also discussed with Ortho, with no indication of any surgery at this time. Ortho recommends PT/OT and weight bearing as tolerated. Full consult pending. JESSICA alston ordered. PRN analgesia for pain control. 05/22: Remains on precedex, more calm and appropriate this am. Remains on 2L NC, hypoxia noted overnight on RA, recent CXR noted with increase CHF/pulmonary edema. Patient remains in Afib but in control rate. 2D echo and cardiology recommendations noted. Patient with low BP this am, BB reduced to 50mg BID and antihypertensive therapy held today. H&H also dropped this am and worsen thrombocytopenia this am, no s/s of any active bleeding. Will hold AC for now, 1unit of PRBCs rdered and iHD today per Nephro. Patient has been refusing PT and OOB activity, still c/o of buttocks and hip pain. Continue to encourage OOB and physical therapy. PRN analgesia for pain control. Monitor and replace electrolytes as needed. 05/23: Mentation remains labile. Awake but still with periods of confusion and agitation. Off precedex gtt this am. Patient tolerated HD yesterday 3L removed, stable on 2L NC. In Afib with RVR, HR in 140s this am. D/w Cardio plan to adjust regimen therapy for rate control. Okay to transfer patient to IMCU per [facility]. 05/24: Patient seen and examined, Cardiology evaluated the patient yesterday made some adjustment to BP management. Patient remains confused with AMS and cxr obtained this morning due to worsening Hypoxia shows increased opacities to the Right lung. Sent to the Pulmonary doctor for review. Will keep NPO for now and may need dobhuff if prolonged AMS. Patient underwent speech eval prior and passed 05/19. Considering the waxing and waning mentation, will consider obtaining MRI Brain when stable and also obtain Neurology consult. Continue IMCU care, may need to move back to ICU if no improvement Discussed with Pulm and Darline. HD ordered for today Assessment and Plan Neuro: Acute Metabolic Encephalopathy h/o SDH with left shift s/p decompressive craniotomy, h/o cocaine abuse/Spych issues S/p Fall -S/p extubation, off sedations -AAO, but with periods of disorientation, very impulsive -Remains on precedex overnight due to increase anxiety/agitation/combativeness -Patient's family reported multiple psych issues such as ADHD and since childhood -seroquel adjusted, continue PRN xanax -Wean precededx gtt for RASS goal 0 to -1 -Mental Health/psych consulted -Reorientation as needed -Maintain sleep-wake cycle -As needed analgesia -Fall precaution -PT/OT consulted Cardiac: Atrial Fibrilation with RVR, h/o cardiomyopathy, HTN -Patient remains in Afib, but in rate control this am. VSS -Cardiology consulted, appreciate recommendations -2D echo pending -Continue BB, reduced to 5omg BID and antihypertensive regimen held due to low BP -Blood pressure monitoring per protocol -Maintain SBP less than 160 -On Heparin SubQ Respiratory: Acute hypoxic respiratory failure, s/p tracheostomy with eventual decannulation, COPD -CCM consulted, appreciate recommendations -Intubated on 05/17 at OSH; 05/19 s/p extubation -Periods of Hypoxia on RA yesterday, now on 2L NC this am -Recent CXR reviewed, worsen CHF/pulmonary edema -Continue iHD per Nephro, 3L removed yesterday -Continue O2 supplementation and wean as tolerated -SPO2 monitoring for SPO2 goal aboev 92% -Of note patient self decannulated on 05/05 Superior and Inferior Pubic Rami fractures Left Enthesophytes Fracture S/p Fall -Noted from Lt. Elbow X-ray and CT scan, see report for details -Ortho consulted, appreciate recommendations -Attending also discussed with Ortho, with no indication of any surgery at this time. -Ortho recommends PT/OT and weight bearing as tolerated. -LUE sling ordered. -PT/OT consulted -Patient has been refusing PT and OOB activity -Fall precaution -Continue to encourage OOB and physical therapy -PRN Analgesia for pain control GI: Moderate protein calorie malnutrition -S/p PEG tube placement, however now off -Patient removed Richter catheter that was in the PEG-tube stoma, dressing present -Patient passed bedside swallow, renal diet ordered -Speech also following -S/p paracentesis at [facility] on 05/06 with removal of 2.7 L : ESRD on HD, hyperkalemia -Nephrology consulted, appreciate recommendations -Continue HD per Nephro -Monitor intake and output -Renally dose medications -Avoid nephrotoxic medications -Monitor and replace electrolytes as needed -Trend BMP Heme: Anemia of Chronic Disease, Thrombocytopenia -Probably chronic 2/2 of ESRD -H&H dropped this am with worsen thrombocytopenia -No s/s of any active bleeding -1unit of PRBCs ordered -Continue Epogen with iHD per Nephro -Will hold AC for now -Transfuse for hgb less than 7 ID: Sepsis (POA) -Leukopenia, CXR showed left-sided effusion with associated opacity and mild right basilar atelectasis -COVID-19 PCR negative, MRSA PCR negative -s/p Antibiotic therapy with cefepime -f/u blood culture -Monitor WBC and temperature curve GI/DVT Prophylaxis -PPI- pepcid -SCDs to bilateral lower extremities while in bed The high probability of a clinically significant, sudden or life threatening deterioration of the [multi] system(s) required my full and direct attention, i ntervention and personal management. The aggregate critical care time was [65] minutes. This time is in addition to time spent performing reported procedures but includes the following: [x] Data Review and interpretation [x] Patient assessment and monitoring of vital signs [x] Documentation [x] Medication orders and management Disposition Plan: ICU Total Time Spent with Patient (Minutes): 65 History Interval history: Patient seen and examined this am, was more agitated, irritable and hallucin ating overnight and also noted to have worsening hypoxia. This morning still mildly sedated and on NRM with 100% saturation Hospitalist Physical - Physical exam Narrative exam: - Physical exam Narrative exam: General appearance: Present: Confused, no increased work of breathing but on NRBM - EENT Eyes: Present: PERRL ENT: hearing intact - Neck Neck: Present: normal ROM - Respiratory Respiratory effort: normal Respiratory: bilateral:rcrackles Bilaterally - Cardiovascular Rhythm: irregularly irregular- TACHYCARDIA Heart Sounds: Present: S1 & S2 - Extremities Extremities: no ischemia, pulses intact, pulses symmetrical Peripheral Pulses: within normal limits - Abdominal General gastrointestinal: soft, non-distended, normal bowel sounds - Integumentary Integumentary: Present: warm, dry - Psychiatric Psychiatric: Calm and appropriate, cooperative, other (Impulsive at time) - Neurologic Neurologic: moves all extremities, Confused - Allied Health Allied health notes reviewed: nursing, case management - Constitutional Vitals: Temp Pulse Resp BP Pulse Ox 99.6 F 122 H 20 108/78 93 05/24/22 05:33 05/24/22 07:00 05/24/22 07:00 05/24/22 07:00 05/24/22 07:00 General appearance: Present: mild distress, cachectic Results - Labs CBC & Chem 7: 05/24/22 08:15 05/24/22 05:15 Labs: Laboratory Last Values WBC 8.8 K/mm3 (4.5-11.0) 05/24/22 08:15 RBC 2.79 M/mm3 (3.65-5.03) L 05/24/22 08:15 Hgb 8.0 gm/dl (11.8-15.2) L 05/24/22 08:15 Hct 24.6 % (35.5-45.6) L 05/24/22 08:15 MCV 89 fl (84-94) 05/24/22 08:15 MCH 29 pg (28-32) 05/24/22 08:15 MCHC 33 % (32-34) 05/24/22 08:15 RDW 20.2 % (13.2-15.2) H 05/24/22 08:15 Plt Count 133 K/mm3 (140-440) L 05/24/22 08:15 Lymph % (Auto) 6.0 % (13.4-35.0) L 05/24/22 08:15 Elk % (Auto) 9.7 % (0.0-7.3) H 05/24/22 08:15 Eos % (Auto) 1.0 % (0.0-4.3) 05/24/22 08:15 Baso % (Auto) 0.5 % (0.0-1.8) 05/24/22 08:15 Lymph # (Auto) 0.5 K/mm3 (1.2-5.4) L 05/24/22 08:15 Elk # (Auto) 0.9 K/mm3 (0.0-0.8) H 05/24/22 08:15 Eos # (Auto) 0.1 K/mm3 (0.0-0.4) 05/24/22 08:15 Baso # (Auto) 0.0 K/mm3 (0.0-0.1) 05/24/22 08:15 Seg Neutrophils % 82.8 % (40.0-70.0) H 05/24/22 08:15 Seg Neutrophils # 7.3 K/mm3 (1.8-7.7) 05/24/22 08:15 ABG pH 7.367 pH Units (7.350-7.450) 05/18/22 06:00 ABG pCO2 44.9 mm Hg 05/18/22 06:00 ABG pO2 158.7 mm Hg (80.0-90.0) H 05/18/22 06:00 ABG HCO3 25.2 mmol/L (20.0-26.0) 05/18/22 06:00 ABG O2 Saturation 98.9 % (95.0-99.0) 05/18/22 06:00 ABG O2 Content 13.0 (0.0-44) 05/18/22 06:00 ABG Base Excess -0.3 mmol/L (-2.0-3.0) 05/18/22 06:00 ABG Hemoglobin 9.4 gm/dl (14.0-18.0) L 05/18/22 06:00 ABG Carboxyhemoglobin 2.3 % (0.0-5.0) 05/18/22 06:00 ABG Methemoglobin 0.5 % (0.0-1.5) 05/18/22 06:00 Oxyhemoglobin 96.2 % (95.0-99.0) 05/18/22 06:00 FiO2 40 % 05/18/22 06:00 Sodium 134 mmol/L (137-145) L 05/24/22 05:15 Potassium 5.8 mmol/L (3.6-5.0) H D 05/24/22 05:15 Chloride 96.4 mmol/L (98-107) L 05/24/22 05:15 Carbon Dioxide 23 mmol/L (22-30) 05/24/22 05:15 Anion Gap 20 mmol/L 05/24/22 05:15 BUN 48 mg/dL (9-20) H 05/24/22 05:15 Creatinine 5.4 mg/dL (0.8-1.3) H 05/24/22 05:15 Estimated GFR 11 ml/min 05/24/22 05:15 BUN/Creatinine Ratio 9 % 05/24/22 05:15 Glucose 98 mg/dL (75-100) 05/24/22 05:15 POC Glucose 126 mg/dL (70-105) H 05/22/22 21:28 Calcium 8.9 mg/dL (8.4-10.2) 05/24/22 05:15 Phosphorus 3.90 mg/dL (2.5-4.5) D 05/24/22 05:15 Magnesium 2.20 mg/dL (1.7-2.3) 05/24/22 05:15 Total Bilirubin 0.40 mg/dL (0.1-1.2) 05/17/22 14:28 AST 7 units/L (5-40) 05/17/22 14:28 ALT < 5 units/L (7-56) L 05/17/22 14:28 Alkaline Phosphatase 78 units/L (35-129) 05/17/22 14:28 Ammonia 24.0 umol/L (25-60) L 05/24/22 08:15 Total Protein 6.1 g/dL (6.3-8.2) L 05/17/22 14:28 Albumin 2.9 g/dL (3.9-5) L 05/17/22 14:28 Albumin/Globulin Ratio 0.9 % 05/17/22 14:28 Nasal Screen MRSA (PCR) Negative (Negative) 05/18/22 08:30 Coronavirus (PCR) Negative (Negative) 05/18/22 07:57 Hepatitis A IgM Ab Non-reactive (NonReactive) 05/18/22 18:10 Hep Bs Antigen Non-reactive (Negative) 05/18/22 18:10 Hep B Core IgM Ab Non-reactive (NonReactive) 05/18/22 18:10 Hepatitis C Antibody Reactive (NonReactive) A 05/18/22 18:10 Blood Type A NEGATIVE 05/22/22 06:00 Antibody Screen Negative 05/22/22 06:00 Crossmatch See Detail 05/22/22 06:00 Active Medications - Current Medications Current Medications: Generic Name Dose Route Start Last Admin Trade Name Freq PRN Reason Stop Dose Admin Acetaminophen 650 mg 05/17/22 14:26 05/24/22 01:13 Acetaminophen 325 Mg Tab PO 650 mg Q4H PRN Administration Pain MILD(1-3)/Fever >100.5/DYER Albumin Human 25 gm 05/18/22 09:10 05/22/22 14:54 Albumin Human 25% (25 Gm/100 Ml) Inj IV 25 gm TOM PRN Administration Hypotension Albuterol 2.5 mg 05/18/22 06:02 Albuterol 2.5 Mg/3 Ml Nebu IH Q3HRT PRN Wheezing Alprazolam 0.5 mg 05/23/22 12:50 05/23/22 21:03 Alprazolam 0.5 Mg Tab PO 0.5 mg Q8HR PRN Administration Anxiety/agitation Aspirin 81 mg 05/21/22 10:00 05/23/22 09:24 Aspirin Ec 81 Mg Tab PO 81 mg QDAY DAQUAN Administration Dextrose 50 ml 05/18/22 15:00 Dextrose 50% In Water (25gm) 50 Ml Syringe IV Q30MIN PRN Hypoglycemia Protocol Diphenhydramine HCl 25 mg 05/20/22 13:30 05/23/22 20:00 Diphenhydramine 25 Mg Cap PO 25 mg Q6H PRN Administration Itching Docusate Sodium 100 mg 05/22/22 10:00 05/23/22 21:03 Docusate Sodium 100 Mg Cap PO 100 mg BID DAQUAN Administration Epoetin Jacinto-epbx 10,000 unit 05/18/22 09:10 05/22/22 16:56 Epoetin Jacinto-Epbx 10,000 Unit/1 Ml Vial IV 10,000 unit TOM PRN Administration hemodialysis Famotidine 20 mg 05/20/22 10:00 05/23/22 09:23 Famotidine 20 Mg Tab PO 20 mg QDAY DAQUAN Administration Sodium Chloride 100 mls @ 999 mls/hr 05/24/22 08:11 Nacl 0.9% IV TOM PRN Hypotension Losartan Potassium 100 mg 05/23/22 10:00 05/23/22 09:23 Losartan 50 Mg Tab PO 100 mg QDAY DAQUAN Administration Metoclopramide HCl 5 mg 05/18/22 09:00 05/19/22 07:53 Metoclopramide 10 Mg/2 Ml Inj IV 5 mg Q6H PRN Administration Nausea And Vomiting Metoprolol Tartrate 75 mg 05/23/22 10:00 05/23/22 21:05 Metoprolol Tartrate 25 Mg Tab PO 75 mg BID DAQUAN Administration Morphine Sulfate 2 mg 05/17/22 14:26 05/23/22 22:11 Morphine 2 Mg/1 Ml Inj IV 2 mg Q4H PRN Administration Pain, Moderate (4-6) Nifedipine 60 mg 05/23/22 10:00 05/23/22 21:04 Nifedipine Xl 60 Mg Tab PO 60 mg BID DAQUAN Administration Ondansetron HCl 4 mg 05/17/22 14:26 05/20/22 07:55 Ondansetron 4 Mg/2 Ml Inj IV 4 mg Q3H PRN Administration Nausea And Vomiting Oxycodone/Acetaminophen 1 tab 05/21/22 11:00 05/24/22 01:14 Oxycodone /Acetaminophen 5-325mg Tab PO 1 tab Q6H PRN Administration Pain, Moderate (4-6) Quetiapine Fumarate 75 mg 05/23/22 10:00 05/23/22 09:24 Quetiapine 25 Mg Tab PO 75 mg QDAY DAQUAN Administration Quetiapine Fumarate 25 mg 05/22/22 22:00 05/23/22 21:03 Quetiapine 25 Mg Tab PO 25 mg QHS DAQUAN Administration Quetiapine Fumarate 100 mg 05/22/22 22:00 05/23/22 21:04 Quetiapine 100 Mg Tab PO 100 mg QHS DAQUAN Administration Senna/Docusate Sodium 1 tab 05/22/22 22:00 05/23/22 21:05 Sennosides/Docusate Sodium 8.6/50 Mg Tab PO 1 tab QHS DAQUAN Administration Sodium Chloride 10 ml 05/17/22 22:00 05/23/22 21:06 Sodium Chloride 0.9% 10 Ml Flush Syringe IV 10 ml BID DAQUAN Administration Sodium Chloride 10 ml 05/17/22 14:26 Sodium Chloride 0.9% 10 Ml Flush Syringe IV PRN PRN LINE FLUSH Nutrition/Malnutrition Assess - Dietary Evaluation Nutrition/Malnutrition Findings: Nutrition Notes Start: 05/18/22 14:16 Freq: Status: Active Protocol: Document 05/20/22 12:37 LUCERO (Rec: 05/20/22 13:15 LUCERO [email or web address]) Nutrition Notes Initial or Follow up Reassessment Current Diagnosis CKD (stage V CKD),COPD, Hypertension,Malnutrition Other Pertinent Diagnosis Metabolic Encephalopathy, L- Elbow+Pelvic Fractures s/p Fall, ESRD+HD, Atria Current Diet Renal Diet (since D 05/19), D Suppl (since L 05/20). Labs/Tests 05/20: K 5.4, Cl 96.5, BUN 53, Crea 6.7, Glu 115, Ca 8.1, Phos 7.9. Pertinent Medications 05/20: Nutritionally unremarkable. 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 No body weight change reported in 2 days. Weight Status Appropriate Subjective/Other Information RD consult for routine F/U on TF tolerance/continuation assessment. TF was discontinued and Pt advanced to PO diet, No reports available on Pt's PO intake of meals at the time, will assess at F/U. prescribed dietary supplements, I will keep the prescription to compensate for possible poor or insufficient PO intake of meals during LOS . TELEVISION NEWS PHOTOGRAPHER note on 05/20/22 11:00: Received a repeat order to assess swallowing function. Spoke with the patient's nurse who was aware of the assessment which was conducted the previous day. Patient is safe for a regular diet. Will discharge the order. - END OF NOTE. Pt is on Room Air, O2 saturation @ 100%, according to Physical Assessment History notes. Pt was extubated on 05/19, well tolerated room air directly, according to Progress notes. Pt experienced a fall on 05/19 with subsequent L-elbow and pelvic fractures, according to Progress notes. Pt presents R-hand abrasions and neck surgical wound as signs of concern for skin risk at the time, according to Physical Assessment History notes. Percent of energy/protein needs met: Prescribed Renal Diet provides for energy/protein needs (2, 072 Kcal/77 g) during LOS; additionally, Dietary Supplements will compensate for possible poor or insufficient PO intake of meals with 850 Kcal and 38 g of protein. Burn Absent Trauma Present GI Symptoms None Food Allergy No Skin Integrity/Comment R-hand abrasions+neck surgical woun Minimum of two criteria No Fluid Accumulation N/A Reduced Jewelry Racker Strength N/A (non-severe) Protein-Calorie Malnutrition N\A #1 Nutrition Diagnosis Swallowing difficulty Comments: TF was discontinued and Pt advanced to PO diet on 05/19. Diagnosis Progress(for reassessment Resolved documentation) Is patient on ventilator? No Is Patient Ambulatory and/or Out of Bed Yes REE-([place]-St. Jeor-ambulatory/OOB) [ [id number] [id number]] Calculation Used for Recommendations [place] Jeor Additional Notes Protein: >1.2 g/Kg ABW; >92 g/ day. Fluids: 1 ml/Kcal, or as per MD. Nutrition Intervention Change Diet Order: Continue Renal Diet as tolerated. Nutrition Support: Discontinued. Add Supplement/Snack (indicate name/kcal Continue 8 fl oz Nepro w/ /protein ) CARBSTEADY; BID. Provides kCal: 850 Provides Protein (gm) 38 Goal #1 Compensate, through dietary supplementation, for possible poor or insufficient PO intake of meals during LOS. Goal #2 Adjust the dietary intervention to better serve Pt's needs and clinical conditions during LOS. Follow-Up By: 05/27/22 Additional Comments Continue monitoring food tolerance, %PO intake of meals , dietary supplements, and BM.
--- NOTE | 2022-05-24 10:28 | Progress Note ---
Assessment and Plan 1. Permanent atrial fibrillation 2. 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 Unspecified cardiomyopathy with mild systolic dysfunction left ventricular ejection fraction of 40 to 45% 4. Chronic obstructive pulmonary disease 5. End-stage renal disease on hemodialysis 6. Status postcraniotomy for traumatic subdural hematoma 7. History of cocaine abuse Plan Increase metoprolol 100 mg twice a day change nifedipine to Cardizem. No anticoagulation given recent subdural hematoma Subjective Date of service: 05/24/22 Principal diagnosis: AHRF; AMS; Left SDH; ESRD on dialysis; COPD; H/O Cocaine abuse Interval history: Alert complains of everything in no apparent distress Objective Vital Signs Temp Pulse Pulse Resp BP Pulse Ox 05/24/22 07:00 122 H 20 108/78 93 05/24/22 06:00 126 H 23 106/70 96 05/24/22 05:33 99.6 F 05/24/22 05:00 120 H 29 H 121/84 91 05/24/22 04:00 123 H 123 H 21 116/80 92 05/24/22 03:40 118 H 05/24/22 03:00 123 H 27 H 118/84 93 05/24/22 02:14 24 05/24/22 02:13 24 05/24/22 02:00 134 H 26 H 111/84 93 05/24/22 01:14 28 H 05/24/22 01:13 28 H 05/24/22 01:00 129 H 26 H 111/84 98 05/24/22 00:00 100.3 F H 128 H 25 H 117/89 97 05/23/22 23:46 100 05/23/22 23:00 125 H 22 115/90 100 05/23/22 22:41 24 05/23/22 22:11 23 05/23/22 22:00 127 H 23 127/82 83 L 05/23/22 21:05 115 H 124/76 05/23/22 21:00 134 H 24 114/76 80 L 05/23/22 20:15 129 H 05/23/22 20:00 99.1 F 137 H 154/119 95 05/23/22 19:58 96 05/23/22 19:00 106 H 117/65 05/23/22 18:00 113 H 26 H 117/65 90 05/23/22 17:22 123 H 25 H 107/65 94 05/23/22 17:00 120 H 20 107/65 05/23/22 16:00 98.0 F 108 H 115 H 17 92/63 93 05/23/22 15:02 131 H 22 100/68 89 05/23/22 14:04 100/67 85 05/23/22 13:01 126 H 27 H 107/68 91 05/23/22 12:00 98.2 F 109 H 118 H 18 118/77 96 05/23/22 11:00 109 H 21 118/74 97 - Physical Examination General: No Apparent Distress HEENT: Positive: PERRL Neck: Positive: neck supple Cardiac: Positive: Regular Rate, S1/S2, PMI, Laterally Displaced. Negative: S3 Lungs: Positive: Normal Breath Sounds, No Wheeze, Rales, Rhonchi Neuro: Positive: Weakness (Generalized lethargy) Abdomen: Positive: Soft Skin: Positive: Clear Extremities: Absent: edema - Labs and Meds CBC 05/24/22 Range/Units 08:15 WBC 8.8 (4.5-11.0) K/mm3 RBC 2.79 L (3.65-5.03) M/mm3 Hgb 8.0 L (11.8-15.2) gm/dl Hct 24.6 L (35.5-45.6) % Plt Count 133 L (140-440) K/mm3 Lymph # (Auto) 0.5 L (1.2-5.4) K/mm3 [place] # (Auto) 0.9 H (0.0-0.8) K/mm3 Eos # (Auto) 0.1 (0.0-0.4) K/mm3 Baso # (Auto) 0.0 (0.0-0.1) K/mm3 Comprehensive Metabolic Panel 05/24/22 Range/Units 05:15 Sodium 134 L (137-145) mmol/L Potassium 5.8 H D (3.6-5.0) mmol/L Chloride 96.4 L (98-107) mmol/L Carbon Dioxide 23 (22-30) mmol/L BUN 48 H (9-20) mg/dL Creatinine 5.4 H (0.8-1.3) mg/dL Glucose 98 (75-100) mg/dL Calcium 8.9 (8.4-10.2) mg/dL - Allied health notes Allied health notes reviewed: nursing
--- NOTE | 2022-05-24 17:23 | Progress Note ---
Assessment and Plan Acute hypoxemic respiratory failure on mechanical ventilatory support Acute toxic metabolic encephalopathy Left subdural hematoma s/p evacuation End-stage renal disease on dialysis Right hip fracture Hypertension COPD CMOP H/O Cocaine abuse Oropharyngeal dysphagia Hyponatremia Anemia that is normocytic likely of chronic disease - continue 100% FiO2 via NRB - get US thortacentesis in am - increased Seroquel to 150 mg qam and 200 mg qhs - continue care as below otherwise; - continue HD/UF per nephrology prescription for toxin and volume clearance - conservative management for hip fracture - orthopedic consult placed earlier - pulmonary edema pattern should improve with extra UF sessions as tolerated - continue local wound care to trach stoma - continue to wean oxygen for O2 sat's > 90% - continue bronchodilators with pulmonary hygiene per RT -aspiration precautions, HOB >40 - continue to wean per pulmonary driven protocols - prn analgesia per pain score - follow clinically re: fever curves / trend WBC - Avoid delirium (no benzodiazepines if they can be avoided) - Maintain sleep-wake cycle - enteral nutrition at goal rate as tolerated - continue accuchecks with glycemic control per SSI (While critically ill target blood glucose of 140-180 mg/dL; avoid hypoglycemia) - VTE prophylaxis with Heparin - stress ulcer prophylaxis with Pantoprazole - mobility protocols for pressure ulcer prophylaxis - fall precautions - wound care management per RN / WCT - increase ambulation; PT/OT as tolerated - Supportive transfusions to keep Hb>7g/dL - CXR's and ABG's prn - continue to monitor neurologic function - continue chronic home medications as indicated - continue all supportive care ........ re-evaluate in am & prn .... Re-evaluate in am & prn CONDITION: CRITICAL PROGNOSIS: GUARDED CODE STATUS: FULL CODE The high probability of a clinically significant, sudden or life-threatening deterioration of the [respiratory, cardiovascular, renal & neurologic] system(s) required my full and direct attention, intervention and personal management. The aggregate critical care time was [34] minutes without overlap. Time includes s pent on; [x] Data Review and interpretation [x] Patient assessment and monitoring of vital signs [x] Documentation [x] Medication orders and management Subjective Date of service: 05/24/22 Principal diagnosis: AHRF; AMS; Left SDH; ESRD on dialysis; COPD; H/O Cocaine abuse Interval history: CC:Patient is being seen today for Acute hypoxemic respiratory failure; AMS; Left SDH; ESRD on dialysis; COPD; H/O Cocaine abuse Subjective: Seen and examined at bedside; 24hr events reviewed; nursing and respiratory care staff consulted; no adverse overnight events reported to me; resting peacefully in bed; needing increased supplemental oxygen; CXR still consistent with volume overload and moderate right pleural effusions; now on 100% NRB; for dialysis today and UF as tolerated; still with intermittent agitation Objective Vital Signs - 12hr 05/24/22 05/24/22 05/24/22 05:33 06:00 07:00 Temperature 99.6 F Pulse Rate 126 H 122 H Respiratory 23 20 Rate Blood Pressure 106/70 108/78 O2 Sat by Pulse 96 93 Oximetry O2 Sat by Pulse Oximetry [ Anterior Bilateral Throughout] 05/24/22 05/24/22 05/24/22 08:00 09:00 10:00 Temperature 99.3 F 99.3 F Pulse Rate 117 H 123 H 110 H Respiratory 23 23 19 Rate Blood Pressure 111/88 111/88 112/78 O2 Sat by Pulse 97 98 96 Oximetry O2 Sat by Pulse 100 Oximetry [ Anterior Bilateral Throughout] 05/24/22 05/24/22 05/24/22 10:15 10:30 10:45 Temperature Pulse Rate 113 H 118 H 108 H Respiratory Rate Blood Pressure 103/75 115/85 104/84 O2 Sat by Pulse Oximetry O2 Sat by Pulse Oximetry [ Anterior Bilateral Throughout] 05/24/22 05/24/22 05/24/22 11:00 11:15 11:30 Temperature Pulse Rate 120 H 104 H 109 H Respiratory 16 Rate Blood Pressure 113/78 105/74 108/78 O2 Sat by Pulse 100 Oximetry O2 Sat by Pulse Oximetry [ Anterior Bilateral Throughout] 05/24/22 05/24/22 05/24/22 11:45 12:00 12:15 Temperature Pulse Rate 108 H 113 H 108 H Respiratory Rate Blood Pressure 112/76 103/76 111/71 O2 Sat by Pulse Oximetry O2 Sat by Pulse Oximetry [ Anterior Bilateral Throughout] 05/24/22 05/24/22 05/24/22 12:18 12:30 12:45 Temperature 98.2 F Pulse Rate 108 H 116 H Respiratory Rate Blood Pressure 106/55 101/62 O2 Sat by Pulse Oximetry O2 Sat by Pulse Oximetry [ Anterior Bilateral Throughout] 05/24/22 05/24/22 05/24/22 13:00 13:15 13:27 Temperature 98.2 F Pulse Rate 99 H 111 H 109 H Respiratory 22 Rate Blood Pressure 102/68 109/64 108/72 O2 Sat by Pulse Oximetry O2 Sat by Pulse 100 Oximetry [ Anterior Bilateral Throughout] Constitutional: no acute distress, asleep, other (middle aged male with normal respiratory effort at rest) Eyes: non-icteric ENT: oropharynx moist Neck: supple, no JVD Effort: normal Ascultation: Bilateral: diminished breath sounds, rales Percussion: Right: dull, Left: not dull Cardiovascular: irregular rhythm Gastrointestinal: normoactive bowel sounds, soft, non-tender, non-distended, other (slightly distended.) Integumentary: normal, other (healed scalp craniotomy incision line) Extremities: no cyanosis, pink and warm, pulses normal, no ischemia or petechiae Neurologic: non-focal exam (grossly), pupils equal and round, CN II-XII normal Psychiatric: mood appropriate, affect normal CBC and BMP: 05/24/22 08:15 05/24/22 05:15 ABG, PT/INR, D-dimer: ABG ABG pH 7.367 pH Units (7.350-7.450) 05/18/22 06:00 ABG pCO2 44.9 mm Hg 05/18/22 06:00 ABG pO2 158.7 mm Hg (80.0-90.0) H 05/18/22 06:00 ABG O2 Saturation 98.9 % (95.0-99.0) 05/18/22 06:00 Abnormal lab findings: Abnormal Labs 05/17/22 05/17/22 05/17/22 14:26 14:28 15:10 WBC 4.0 L RBC 2.86 L Hgb 8.4 L Hct 24.9 L RDW 20.9 H Plt Count Lymph % (Auto) [place] % (Auto) 14.7 H Lymph # (Auto) 0.6 L [place] # (Auto) Seg Neutrophils % ABG pO2 191.6 H ABG O2 Saturation 99.2 H ABG Hemoglobin 9.0 L Sodium 126 L Potassium 6.0 H Chloride 91.0 L BUN 42 H Creatinine 6.9 H Glucose POC Glucose Calcium Phosphorus Magnesium ALT < 5 L Ammonia Total Protein 6.1 L Albumin 2.9 L Hepatitis C Antibody Crossmatch 05/18/22 05/18/22 05/18/22 04:13 04:20 06:00 WBC 3.0 L RBC 2.87 L Hgb 8.1 L Hct 25.3 L RDW 20.7 H Plt Count 127 L Lymph % (Auto) [place] % (Auto) 15.1 H Lymph # (Auto) 0.5 L [place] # (Auto) Seg Neutrophils % ABG pO2 158.7 H ABG O2 Saturation ABG Hemoglobin 9.4 L Sodium 128 L Potassium 6.8 H* Chloride 93.7 L BUN 48 H Creatinine 6.8 H Glucose POC Glucose Calcium Phosphorus Magnesium ALT Ammonia Total Protein Albumin Hepatitis C Antibody Crossmatch 05/18/22 05/18/22 05/18/22 17:49 18:10 23:15 WBC RBC Hgb Hct RDW Plt Count Lymph % (Auto) [place] % (Auto) Lymph # (Auto) [place] # (Auto) Seg Neutrophils % ABG pO2 ABG O2 Saturation ABG Hemoglobin Sodium Potassium Chloride BUN Creatinine Glucose POC Glucose 144 H 145 H Calcium Phosphorus Magnesium ALT Ammonia Total Protein Albumin Hepatitis C Antibody Reactive A Crossmatch 05/19/22 05/19/22 05/19/22 03:18 03:18 05:21 WBC 2.6 L RBC 2.94 L Hgb 8.5 L Hct 26.2 L RDW 20.3 H Plt Count 137 L Lymph % (Auto) [place] % (Auto) Lymph # (Auto) [place] # (Auto) Seg Neutrophils % ABG pO2 ABG O2 Saturation ABG Hemoglobin Sodium Potassium 5.1 H D Chloride BUN 34 H Creatinine 4.9 H Glucose 130 H POC Glucose 143 H Calcium 8.3 L Phosphorus Magnesium ALT Ammonia Total Protein Albumin Hepatitis C Antibody Crossmatch 05/19/22 05/19/22 05/20/22 11:23 17:48 00:01 WBC RBC Hgb Hct RDW Plt Count Lymph % (Auto) [place] % (Auto) Lymph # (Auto) [place] # (Auto) Seg Neutrophils % ABG pO2 ABG O2 Saturation ABG Hemoglobin Sodium Potassium Chloride BUN Creatinine Glucose POC Glucose 127 H 156 H 142 H Calcium Phosphorus Magnesium ALT Ammonia Total Protein Albumin Hepatitis C Antibody Crossmatch 05/20/22 05/20/22 05/20/22 04:31 04:31 17:44 WBC RBC 2.72 L Hgb 7.8 L Hct 24.1 L RDW 20.9 H Plt Count Lymph % (Auto) [place] % (Auto) Lymph # (Auto) [place] # (Auto) Seg Neutrophils % ABG pO2 ABG O2 Saturation ABG Hemoglobin Sodium Potassium 5.4 H Chloride 96.5 L BUN 53 H Creatinine 6.7 H Glucose 115 H POC Glucose 132 H Calcium 8.1 L Phosphorus 7.90 H Magnesium ALT Ammonia Total Protein Albumin Hepatitis C Antibody Crossmatch 05/21/22 05/21/22 05/21/22 04:13 07:50 11:43 WBC RBC Hgb Hct RDW Plt Count Lymph % (Auto) [place] % (Auto) Lymph # (Auto) [place] # (Auto) Seg Neutrophils % ABG pO2 ABG O2 Saturation ABG Hemoglobin Sodium Potassium Chloride 97.7 L BUN 37 H Creatinine 4.9 H Glucose POC Glucose 111 H 109 H Calcium 8.0 L Phosphorus Magnesium ALT Ammonia Total Protein Albumin Hepatitis C Antibody Crossmatch 05/21/22 05/21/22 05/22/22 17:00 20:52 03:59 WBC RBC 2.31 L Hgb 6.8 L Hct 20.3 L RDW 20.4 H Plt Count 103 L Lymph % (Auto) [place] % (Auto) Lymph # (Auto) [place] # (Auto) Seg Neutrophils % ABG pO2 ABG O2 Saturation ABG Hemoglobin Sodium Potassium Chloride BUN Creatinine Glucose POC Glucose 116 H 121 H Calcium Phosphorus Magnesium ALT Ammonia Total Protein Albumin Hepatitis C Antibody Crossmatch 05/22/22 05/22/22 05/22/22 03:59 06:00 07:33 WBC RBC Hgb Hct RDW Plt Count Lymph % (Auto) [place] % (Auto) Lymph # (Auto) [place] # (Auto) Seg Neutrophils % ABG pO2 ABG O2 Saturation ABG Hemoglobin Sodium 134 L Potassium Chloride 94.7 L BUN 44 H Creatinine 5.7 H Glucose POC Glucose 135 H Calcium 7.9 L Phosphorus Magnesium 1.60 L ALT Ammonia Total Protein Albumin Hepatitis C Antibody Crossmatch See Detail 05/22/22 05/22/22 05/22/22 16:55 21:28 22:53 WBC RBC 2.70 L Hgb 7.9 L Hct 24.1 L RDW 20.3 H Plt Count 110 L Lymph % (Auto) [place] % (Auto) Lymph # (Auto) [place] # (Auto) Seg Neutrophils % ABG pO2 ABG O2 Saturation ABG Hemoglobin Sodium Potassium Chloride BUN Creatinine Glucose POC Glucose 146 H 126 H Calcium Phosphorus Magnesium ALT Ammonia Total Protein Albumin Hepatitis C Antibody Crossmatch 05/22/22 05/22/22 05/23/22 22:53 22:53 04:00 WBC RBC 2.84 L Hgb 8.4 L Hct 25.5 L RDW 20.5 H Plt Count 108 L Lymph % (Auto) [place] % (Auto) Lymph # (Auto) [place] # (Auto) Seg Neutrophils % ABG pO2 ABG O2 Saturation ABG Hemoglobin Sodium 136 L Potassium Chloride 97.6 L BUN 30 H Creatinine 3.9 H Glucose 132 H POC Glucose Calcium Phosphorus 2.20 L D Magnesium ALT Ammonia Total Protein Albumin Hepatitis C Antibody Crossmatch 05/23/22 05/24/22 05/24/22 04:17 05:15 08:15 WBC RBC 2.79 L Hgb 8.0 L Hct 24.6 L RDW 20.2 H Plt Count 133 L Lymph % (Auto) 6.0 L [place] % (Auto) 9.7 H Lymph # (Auto) 0.5 L [place] # (Auto) 0.9 H Seg Neutrophils % 82.8 H ABG pO2 ABG O2 Saturation ABG Hemoglobin Sodium 134 L Potassium 5.8 H D Chloride 96.4 L BUN 32 H 48 H Creatinine 4.1 H 5.4 H Glucose 107 H POC Glucose Calcium Phosphorus 2.30 L Magnesium ALT Ammonia Total Protein Albumin Hepatitis C Antibody Crossmatch 05/24/22 08:15 WBC RBC Hgb Hct RDW Plt Count Lymph % (Auto) [place] % (Auto) Lymph # (Auto) [place] # (Auto) Seg Neutrophils % ABG pO2 ABG O2 Saturation ABG Hemoglobin Sodium Potassium Chloride BUN Creatinine Glucose POC Glucose Calcium Phosphorus Magnesium ALT Ammonia 24.0 L Total Protein Albumin Hepatitis C Antibody Crossmatch Chest x-ray: image reviewed (moderate right pleural effusion is new) Allied health notes reviewed: nursing
[2022-05-24] MEDS ORDERED: QUEtiapine 100 MG TAB PO SCH (17:29)
[2022-05-24] MEDS ORDERED: ONDANSETRON 4 MG/2 ML INJ IV PRN (17:30)
--- NOTE | 2022-05-24 17:46 | XRay Report ---
ABDOMEN 1 VIEW 05/24/2022 5:01 PM INDICATION / CLINICAL INFORMATION: NG TUBE placement. COMPARISON: 05/18/2022 FINDINGS: TUBES / LINES: Esophagogastric tube side-port is in the region of the gastroesophageal junction. Righ t axillary vascular stent. BOWEL GAS PATTERN: No significant abnormality. FREE AIR / EXTRALUMINAL GAS: None. ADDITIONAL FINDINGS: Bilateral pleural effusions with adjacent opacities, worse in the right lung. IMPRESSION: 1. Esophagogastric tube side-port is in the region of the gastroesophageal junction. Recommend advanc ement by 4 to 5 cm for more optimal positioning. Signer Name: Tyler Coburn MD Signed: 05/24/2022 5:42 PM Workstation Name: [email or web address]
--- NOTE | 2022-05-24 18:11 | XRay Report ---
ABDOMEN 1 VIEW 05/24/2022 5:44 PM INDICATION / CLINICAL INFORMATION: NGTUBE REPLACEMENT. COMPARISON: 05/24/2022 FINDINGS: TUBES / LINES: Esophagogastric tube side-port is in the stomach. BOWEL GAS PATTERN: No significant abnormality. FREE AIR / EXTRALUMINAL GAS: None. ADDITIONAL FINDINGS: No significant additional findings. IMPRESSION: 1. Esophagogastric tube in expected position. Signer Name: Tyler Coburn MD Signed: 05/24/2022 6:07 PM Workstation Name: [email or web address]
[2022-05-24] MEDS: NIFEdipine XL 60 MG TAB PO SCH ×2 (19:02→23:25)
[2022-05-24] MEDS: FAMOTIDINE 20 MG TAB PO SCH (19:02)
[2022-05-24] MEDS: LOSARTAN 50 MG TAB PO SCH (19:02)
[2022-05-24] MEDS: ASPIRIN EC 81 MG TAB PO SCH (19:02)
[2022-05-24] MEDS: METOPROLOL TARTRATE 25 MG TAB PO SCH ×2 (19:03→23:25)
[2022-05-24] MEDS: QUEtiapine 100 MG TAB PO SCH ×3 (19:03→23:37)
[2022-05-24] MEDS: DOCUSATE SODIUM 100 MG CAP PO SCH ×2 (19:03→23:30)
[2022-05-24] MEDS: QUEtiapine 25 MG TAB PO SCH (19:23)
[2022-05-24] MEDS: MORPHINE 2 MG/1 ML INJ IV PRN ×2 (20:13→23:31)
[2022-05-24] MEDS: diphenhydrAMINE 25 MG CAP PO PRN ×2 (20:13→23:31)
[2022-05-24] MEDS: ALPRAZolam 0.5 MG TAB PO PRN (20:13)
[2022-05-24] MEDS: SENNOSIDES/DOCUSATE SODIUM 8.6/50 MG TAB PO SCH (23:30)
--- NOTE | 2022-05-25 09:24 | Progress Note ---
Assessment and Plan Acute hypoxemic respiratory failure on mechanical ventilatory support Acute toxic metabolic encephalopathy Left subdural hematoma s/p evacuation End-stage renal disease on dialysis Right hip fracture Hypertension COPD CMOP H/O Cocaine abuse Oropharyngeal dysphagia Hyponatremia Anemia that is normocytic likely of chronic disease - 500 mls IVNS over 1 hour - 25 gms of 25% Albumin - begin midodrine 10 mg p.o. tid - continue 100% FiO2 via NRB - get US thortacentesis in am - continue Seroquel at 150 mg qam and 200 mg qhs - continue care as below otherwise; - continue HD/UF per nephrology prescription for toxin and volume clearance - conservative management for hip fracture - orthopedic consult placed earlier - pulmonary edema pattern should improve with extra UF sessions as tolerated - continue local wound care to trach stoma - continue to wean oxygen for O2 sat's > 90% - continue bronchodilators with pulmonary hygiene per RT -aspiration precautions, HOB >40 - continue to wean per pulmonary driven protocols - prn analgesia per pain score - follow clinically re: fever curves / trend WBC - Avoid delirium (no benzodiazepines if they can be avoided) - Maintain sleep-wake cycle - enteral nutrition at goal rate as tolerated - continue accuchecks with glycemic control per SSI (While critically ill target blood glucose of 140-180 mg/dL; avoid hypoglycemia) - VTE prophylaxis with Heparin - stress ulcer prophylaxis with Pantoprazole - mobility protocols for pressure ulcer prophylaxis - fall precautions - wound care management per RN / WCT - increase ambulation; PT/OT as tolerated - Supportive transfusions to keep Hb>7g/dL - CXR's and ABG's prn - continue to monitor neurologic function - continue chronic home medications as indicated - continue all supportive care ........ re-evaluate in am & prn .... Re-evaluate in am & prn CONDITION: CRITICAL PROGNOSIS: GUARDED CODE STATUS: FULL CODE The high probability of a clinically significant, sudden or life-threatening deterioration of the [respiratory, cardiovascular, renal & neurologic] system(s) required my full and direct attention, intervention and personal management. The aggregate critical care time was [32] minutes without overlap. Time includes spent on; [x] Data Review and interpretation [x] Patient assessment and monitoring of vital signs [x] Documentation [x] Medication orders and management Subjective Date of service: 05/25/22 Principal diagnosis: AHRF; AMS; Left SDH; ESRD on dialysis; COPD; H/O Cocaine abuse Interval history: CC:Patient is being seen today for Acute hypoxemic respiratory failure; AMS; Left SDH; ESRD on dialysis; COPD; H/O Cocaine abuse Subjective: Seen and examined at bedside; 24hr events reviewed; nursing and respiratory care staff consulted; no adverse overnight events reported to me; resting peacefully in bed; s/p HD/UF yesterday; now on 100% NRB; hypotensive; denies chest pain; still with delirium at times; no N/V/F/C Objective Vital Signs - 12hr 05/24/22 05/24/22 05/24/22 21:30 22:00 22:30 Temperature Pulse Rate 118 H 116 H 109 H Pulse Rate [ From Monitor] Respiratory 30 H 25 H 28 H Rate Blood Pressure 98/47 85/56 83/53 O2 Sat by Pulse 93 95 95 Oximetry 05/24/22 05/24/22 05/24/22 23:00 23:25 23:30 Temperature Pulse Rate 125 H 128 H 123 H Pulse Rate [ From Monitor] Respiratory 21 28 H Rate Blood Pressure 90/53 88/52 91/47 O2 Sat by Pulse 86 96 Oximetry 05/24/22 05/25/22 05/25/22 23:31 00:01 00:20 Temperature Pulse Rate 128 H 117 H Pulse Rate [ From Monitor] Respiratory 24 22 Rate Blood Pressure 86/49 O2 Sat by Pulse 95 Oximetry 05/25/22 05/25/22 05/25/22 00:31 01:30 02:00 Temperature Pulse Rate 123 H 109 H 124 H Pulse Rate [ From Monitor] Respiratory 24 25 H 26 H Rate Blood Pressure 79/40 73/52 79/51 O2 Sat by Pulse 92 95 92 Oximetry 05/25/22 05/25/22 05/25/22 02:30 03:00 03:30 Temperature Pulse Rate 133 H 129 H 130 H Pulse Rate [ From Monitor] Respiratory 24 23 22 Rate Blood Pressure 87/46 87/46 76/49 O2 Sat by Pulse 88 90 89 Oximetry 05/25/22 05/25/22 05/25/22 03:41 03:51 04:00 Temperature 98.3 F Pulse Rate 127 H 116 H 133 H Pulse Rate [ From Monitor] Respiratory 21 28 H 28 H Rate Blood Pressure 83/54 76/49 81/56 O2 Sat by Pulse 95 89 89 Oximetry 05/25/22 05/25/22 05/25/22 04:11 04:21 04:25 Temperature Pulse Rate 135 H 126 H 124 H Pulse Rate [ From Monitor] Respiratory 33 H 28 H Rate Blood Pressure 81/56 81/56 O2 Sat by Pulse 89 89 Oximetry 05/25/22 05/25/22 05/25/22 04:30 04:41 04:51 Temperature Pulse Rate 124 H 128 H 123 H Pulse Rate [ 124 H From Monitor] Respiratory 25 H 30 H 26 H Rate Blood Pressure 91/49 91/49 91/49 O2 Sat by Pulse 90 90 91 Oximetry 05/25/22 05/25/22 05/25/22 05:01 05:11 05:21 Temperature Pulse Rate 126 H 117 H 132 H Pulse Rate [ From Monitor] Respiratory 26 H 27 H 29 H Rate Blood Pressure 93/50 93/50 93/50 O2 Sat by Pulse 90 84 95 Oximetry 05/25/22 05/25/22 05/25/22 05:30 05:40 05:50 Temperature Pulse Rate 113 H 123 H 125 H Pulse Rate [ From Monitor] Respiratory 24 28 H 29 H Rate Blood Pressure 81/48 81/48 81/48 O2 Sat by Pulse 96 98 97 Oximetry 05/25/22 05/25/22 05/25/22 06:30 06:41 06:51 Temperature Pulse Rate 109 H 118 H 126 H Pulse Rate [ From Monitor] Respiratory 28 H 22 22 Rate Blood Pressure 87/64 87/64 87/64 O2 Sat by Pulse 82 L 98 97 Oximetry 05/25/22 05/25/22 05/25/22 07:00 07:06 07:11 Temperature 99.9 F H Pulse Rate 111 H 106 H Pulse Rate [ From Monitor] Respiratory 23 17 Rate Blood Pressure 82/58 82/58 O2 Sat by Pulse 97 98 Oximetry 05/25/22 07:21 Temperature Pulse Rate 126 H Pulse Rate [ From Monitor] Respiratory 24 Rate Blood Pressure 82/58 O2 Sat by Pulse 96 Oximetry Constitutional: no acute distress, asleep, other (middle aged male with mildly increased respiratory effort at rest) Eyes: non-icteric ENT: oropharynx moist Neck: supple, no JVD Effort: mildly labored Ascultation: Bilateral: diminished breath sounds, rhonchi Percussion: Right: dull, Left: not dull Cardiovascular: irregular rhythm Gastrointestinal: normoactive bowel sounds, soft, non-tender, non-distended (protuberant), other (slightly distended.) Integumentary: normal, other (healed scalp craniotomy incision line) Extremities: no cyanosis, pink and warm, pulses normal, no ischemia or petechiae Neurologic: non-focal exam (grossly), pupils equal and round, CN II-XII normal Psychiatric: mood appropriate, affect normal CBC and BMP: 05/24/22 08:15 05/24/22 05:15 ABG, PT/INR, D-dimer: ABG ABG pH 7.367 pH Units (7.350-7.450) 05/18/22 06:00 ABG pCO2 44.9 mm Hg 05/18/22 06:00 ABG pO2 158.7 mm Hg (80.0-90.0) H 05/18/22 06:00 ABG O2 Saturation 98.9 % (95.0-99.0) 05/18/22 06:00 Abnormal lab findings: Abnormal Labs 05/17/22 05/17/22 05/17/22 14:26 14:28 15:10 WBC 4.0 L RBC 2.86 L Hgb 8.4 L Hct 24.9 L RDW 20.9 H Plt Count Lymph % (Auto) Dawson % (Auto) 14.7 H Lymph # (Auto) 0.6 L Dawson # (Auto) Seg Neutrophils % ABG pO2 191.6 H ABG O2 Saturation 99.2 H ABG Hemoglobin 9.0 L Sodium 126 L Potassium 6.0 H Chloride 91.0 L BUN 42 H Creatinine 6.9 H Glucose POC Glucose Calcium Phosphorus Magnesium ALT < 5 L Ammonia Total Protein 6.1 L Albumin 2.9 L Hepatitis C Antibody Crossmatch 05/18/22 05/18/22 05/18/22 04:13 04:20 06:00 WBC 3.0 L RBC 2.87 L Hgb 8.1 L Hct 25.3 L RDW 20.7 H Plt Count 127 L Lymph % (Auto) Dawson % (Auto) 15.1 H Lymph # (Auto) 0.5 L Dawson # (Auto) Seg Neutrophils % ABG pO2 158.7 H ABG O2 Saturation ABG Hemoglobin 9.4 L Sodium 128 L Potassium 6.8 H* Chloride 93.7 L BUN 48 H Creatinine 6.8 H Glucose POC Glucose Calcium Phosphorus Magnesium ALT Ammonia Total Protein Albumin Hepatitis C Antibody Crossmatch 05/18/22 05/18/22 05/18/22 17:49 18:10 23:15 WBC RBC Hgb Hct RDW Plt Count Lymph % (Auto) Dawson % (Auto) Lymph # (Auto) Dawson # (Auto) Seg Neutrophils % ABG pO2 ABG O2 Saturation ABG Hemoglobin Sodium Potassium Chloride BUN Creatinine Glucose POC Glucose 144 H 145 H Calcium Phosphorus Magnesium ALT Ammonia Total Protein Albumin Hepatitis C Antibody Reactive A Crossmatch 05/19/22 05/19/22 05/19/22 03:18 03:18 05:21 WBC 2.6 L RBC 2.94 L Hgb 8.5 L Hct 26.2 L RDW 20.3 H Plt Count 137 L Lymph % (Auto) Dawson % (Auto) Lymph # (Auto) Dawson # (Auto) Seg Neutrophils % ABG pO2 ABG O2 Saturation ABG Hemoglobin Sodium Potassium 5.1 H D Chloride BUN 34 H Creatinine 4.9 H Glucose 130 H POC Glucose 143 H Calcium 8.3 L Phosphorus Magnesium ALT Ammonia Total Protein Albumin Hepatitis C Antibody Crossmatch 05/19/22 05/19/22 05/20/22 11:23 17:48 00:01 WBC RBC Hgb Hct RDW Plt Count Lymph % (Auto) Dawson % (Auto) Lymph # (Auto) Dawson # (Auto) Seg Neutrophils % ABG pO2 ABG O2 Saturation ABG Hemoglobin Sodium Potassium Chloride BUN Creatinine Glucose POC Glucose 127 H 156 H 142 H Calcium Phosphorus Magnesium ALT Ammonia Total Protein Albumin Hepatitis C Antibody Crossmatch 05/20/22 05/20/22 05/20/22 04:31 04:31 17:44 WBC RBC 2.72 L Hgb 7.8 L Hct 24.1 L RDW 20.9 H Plt Count Lymph % (Auto) Dawson % (Auto) Lymph # (Auto) Dawson # (Auto) Seg Neutrophils % ABG pO2 ABG O2 Saturation ABG Hemoglobin Sodium Potassium 5.4 H Chloride 96.5 L BUN 53 H Creatinine 6.7 H Glucose 115 H POC Glucose 132 H Calcium 8.1 L Phosphorus 7.90 H Magnesium ALT Ammonia Total Protein Albumin Hepatitis C Antibody Crossmatch 05/21/22 05/21/22 05/21/22 04:13 07:50 11:43 WBC RBC Hgb Hct RDW Plt Count Lymph % (Auto) Dawson % (Auto) Lymph # (Auto) Dawson # (Auto) Seg Neutrophils % ABG pO2 ABG O2 Saturation ABG Hemoglobin Sodium Potassium Chloride 97.7 L BUN 37 H Creatinine 4.9 H Glucose POC Glucose 111 H 109 H Calcium 8.0 L Phosphorus Magnesium ALT Ammonia Total Protein Albumin Hepatitis C Antibody Crossmatch 05/21/22 05/21/22 05/22/22 17:00 20:52 03:59 WBC RBC 2.31 L Hgb 6.8 L Hct 20.3 L RDW 20.4 H Plt Count 103 L Lymph % (Auto) Dawson % (Auto) Lymph # (Auto) Dawson # (Auto) Seg Neutrophils % ABG pO2 ABG O2 Saturation ABG Hemoglobin Sodium Potassium Chloride BUN Creatinine Glucose POC Glucose 116 H 121 H Calcium Phosphorus Magnesium ALT Ammonia Total Protein Albumin Hepatitis C Antibody Crossmatch 05/22/22 05/22/22 05/22/22 03:59 06:00 07:33 WBC RBC Hgb Hct RDW Plt Count Lymph % (Auto) Dawson % (Auto) Lymph # (Auto) Dawson # (Auto) Seg Neutrophils % ABG pO2 ABG O2 Saturation ABG Hemoglobin Sodium 134 L Potassium Chloride 94.7 L BUN 44 H Creatinine 5.7 H Glucose POC Glucose 135 H Calcium 7.9 L Phosphorus Magnesium 1.60 L ALT Ammonia Total Protein Albumin Hepatitis C Antibody Crossmatch See Detail 05/22/22 05/22/22 05/22/22 16:55 21:28 22:53 WBC RBC 2.70 L Hgb 7.9 L Hct 24.1 L RDW 20.3 H Plt Count 110 L Lymph % (Auto) Dawson % (Auto) Lymph # (Auto) Dawson # (Auto) Seg Neutrophils % ABG pO2 ABG O2 Saturation ABG Hemoglobin Sodium Potassium Chloride BUN Creatinine Glucose POC Glucose 146 H 126 H Calcium Phosphorus Magnesium ALT Ammonia Total Protein Albumin Hepatitis C Antibody Crossmatch 05/22/22 05/22/22 05/23/22 22:53 22:53 04:00 WBC RBC 2.84 L Hgb 8.4 L Hct 25.5 L RDW 20.5 H Plt Count 108 L Lymph % (Auto) Dawson % (Auto) Lymph # (Auto) Dawson # (Auto) Seg Neutrophils % ABG pO2 ABG O2 Saturation ABG Hemoglobin Sodium 136 L Potassium Chloride 97.6 L BUN 30 H Creatinine 3.9 H Glucose 132 H POC Glucose Calcium Phosphorus 2.20 L D Magnesium ALT Ammonia Total Protein Albumin Hepatitis C Antibody Crossmatch 05/23/22 05/24/22 05/24/22 04:17 05:15 08:15 WBC RBC 2.79 L Hgb 8.0 L Hct 24.6 L RDW 20.2 H Plt Count 133 L Lymph % (Auto) 6.0 L Dawson % (Auto) 9.7 H Lymph # (Auto) 0.5 L Dawson # (Auto) 0.9 H Seg Neutrophils % 82.8 H ABG pO2 ABG O2 Saturation ABG Hemoglobin Sodium 134 L Potassium 5.8 H D Chloride 96.4 L BUN 32 H 48 H Creatinine 4.1 H 5.4 H Glucose 107 H POC Glucose Calcium Phosphorus 2.30 L Magnesium ALT Ammonia Total Protein Albumin Hepatitis C Antibody Crossmatch 05/24/22 08:15 WBC RBC Hgb Hct RDW Plt Count Lymph % (Auto) Dawson % (Auto) Lymph # (Auto) Dawson # (Auto) Seg Neutrophils % ABG pO2 ABG O2 Saturation ABG Hemoglobin Sodium Potassium Chloride BUN Creatinine Glucose POC Glucose Calcium Phosphorus Magnesium ALT Ammonia 24.0 L Total Protein Albumin Hepatitis C Antibody Crossmatch Allied health notes reviewed: nursing
[2022-05-25] MEDS: FAMOTIDINE 20 MG TAB PO SCH (10:11)
[2022-05-25] MEDS: QUEtiapine 100 MG TAB PO SCH ×2 (10:11→21:29)
[2022-05-25] MEDS: NIFEdipine XL 60 MG TAB PO SCH (10:11)
[2022-05-25] MEDS: DOCUSATE SODIUM 100 MG CAP PO SCH ×2 (10:11→21:30)
[2022-05-25] MEDS: METOPROLOL TARTRATE 25 MG TAB PO SCH (10:12)
[2022-05-25] MEDS: LOSARTAN 50 MG TAB PO SCH (10:12)
--- NOTE | 2022-05-25 10:20 | Progress Note ---
Assessment and Plan 1. Permanent atrial fibrillation 2. 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 Unspecified cardiomyopathy with mild systolic dysfunction left ventricular ejection fraction of 40 to 45% 4. Chronic obstructive pulmonary disease 5. End-stage renal disease on hemodialysis 6. Status postcraniotomy for traumatic subdural hematoma 7. History of cocaine abuse Plan Increase metoprolol 100 mg twice a day change nifedipine to Cardizem. No anticoagulation given recent subdural hematoma Subjective Date of service: 05/25/22 Principal diagnosis: AHRF; AMS; Left SDH; ESRD on dialysis; COPD; H/O Cocaine abuse Interval history: Alert complains of everything in no apparent distress Objective Vital Signs Temp Pulse Pulse Resp BP Pulse Ox Pulse Ox 05/25/22 10:12 137 H 80/56 05/25/22 07:21 126 H 24 82/58 96 05/25/22 07:11 106 H 17 82/58 98 05/25/22 07:06 99.9 F H 05/25/22 07:00 111 H 23 82/58 97 05/25/22 06:51 126 H 22 87/64 97 05/25/22 06:41 118 H 22 87/64 98 05/25/22 06:30 109 H 28 H 87/64 82 L 05/25/22 05:50 125 H 29 H 81/48 97 05/25/22 05:40 123 H 28 H 81/48 98 05/25/22 05:30 113 H 24 81/48 96 05/25/22 05:21 132 H 29 H 93/50 95 05/25/22 05:11 117 H 27 H 93/50 84 05/25/22 05:01 126 H 26 H 93/50 90 05/25/22 04:51 123 H 26 H 91/49 91 05/25/22 04:41 128 H 30 H 91/49 90 05/25/22 04:30 124 H 124 H 25 H 91/49 90 05/25/22 04:25 124 H 05/25/22 04:21 126 H 28 H 81/56 89 05/25/22 04:11 135 H 33 H 81/56 89 05/25/22 04:00 98.3 F 133 H 28 H 81/56 89 05/25/22 03:51 116 H 28 H 76/49 89 05/25/22 03:41 127 H 21 83/54 95 05/25/22 03:30 130 H 22 76/49 89 05/25/22 03:00 129 H 23 87/46 90 05/25/22 02:30 133 H 24 87/46 88 05/25/22 02:00 124 H 26 H 79/51 92 05/25/22 01:30 109 H 25 H 73/52 95 05/25/22 00:31 123 H 24 79/40 92 05/25/22 00:20 117 H 05/25/22 00:01 128 H 22 86/49 95 05/24/22 23:31 24 05/24/22 23:30 123 H 28 H 91/47 96 05/24/22 23:25 128 H 88/52 05/24/22 23:00 125 H 21 90/53 86 05/24/22 22:30 109 H 28 H 83/53 95 05/24/22 22:00 116 H 25 H 85/56 95 05/24/22 21:30 118 H 30 H 98/47 93 05/24/22 21:00 122 H 26 H 78/58 94 05/24/22 20:30 140 H 34 H 84/64 93 05/24/22 20:16 94 05/24/22 20:05 143 H 05/24/22 20:01 129 H 29 H 41/24 85 05/24/22 20:00 99.2 F 05/24/22 19:30 139 H 16 124/79 90 05/24/22 19:03 150 H 118/88 05/24/22 19:02 141 H 118/88 05/24/22 19:00 155 H 22 118/88 93 05/24/22 18:33 151 H 27 H 131/78 95 05/24/22 18:06 94 05/24/22 18:01 144 H 22 108/79 94 05/24/22 17:35 98.4 F 05/24/22 17:01 137 H 36 H 126/94 93 05/24/22 16:00 129 H 123 H 23 112/72 94 05/24/22 15:00 123 H 20 104/68 92 05/24/22 14:00 132 H 18 100/74 100 05/24/22 13:27 98.2 F 109 H 22 108/72 100 05/24/22 13:15 111 H 109/64 05/24/22 13:00 103 H 18 92/68 100 05/24/22 12:45 116 H 101/62 05/24/22 12:30 108 H 106/55 05/24/22 12:18 98.2 F 05/24/22 12:15 108 H 111/71 05/24/22 12:00 120 H 124 H 18 112/76 100 05/24/22 11:45 108 H 112/76 05/24/22 11:30 109 H 108/78 05/24/22 11:15 104 H 105/74 05/24/22 11:00 120 H 16 113/78 100 05/24/22 10:45 108 H 104/84 05/24/22 10:30 118 H 115/85 05/24/22 10:15 113 H 103/75 - Physical Examination General: No Apparent Distress HEENT: Positive: PERRL Neck: Positive: neck supple Cardiac: Positive: Regular Rate, irregularly irregular, S1/S2, S3, Tachycardia, PMI, Laterally Displaced Lungs: Positive: clear to auscultation, No Wheeze, Rales, Rhonchi Neuro: Positive: Weakness (Generalized lethargy) Abdomen: Positive: Soft Skin: Positive: Clear Extremities: Absent: edema - Allied health notes Allied health notes reviewed: nursing
--- NOTE | 2022-05-25 10:44 | Progress Note ---
Assessment and Plan - Patient Problems (1) Hyperkalemia Current Visit: Yes Status: Acute Plan to address problem: Repeat BMP pending. Pt had additional HD yesterday for fluid removal, solute clearance and correction of hyperkalemia. continue low potassium diet. (2) Acute respiratory failure with hypoxia Current Visit: Yes Status: Acute Plan to address problem: S/p HD on Wednesday for additional fluid removal and solute clearance. Patient awaiting therapeutic thoracentesis today. (3) ESRD on dialysis Current Visit: Yes Status: Chronic Plan to address problem: continue Wed/Cailin/Wed inpatient hemodialysis schedule. (4) Anemia in CKD (chronic kidney disease) Current Visit: Yes Status: Acute Plan to address problem: Continue HETAL therapy with HD. (5) HTN (hypertension) Current Visit: Yes Status: Chronic Qualifiers: Hypertension type: primary hypertension Qualified Code(s): I10 - Essential (primary) hypertension Plan to address problem: monitor blood pressures on her current regime Subjective Date of service: 05/25/22 Principal diagnosis: AHRF; AMS; Left SDH; ESRD on dialysis; COPD; H/O Cocaine abuse Interval history: Patient with acute respiratory distress with hypoxia, repeat CXR showed interval worsening of R pleural effusion and R pulmonary opacities. Patient underwent additional HD yesterday for additional fluid removal. Pt remains on NRB mask at 100% this AM Objective - Vital Signs Vital signs: Vital Signs - 12hr 05/24/22 05/24/22 05/24/22 23:00 23:25 23:30 Temperature Pulse Rate 125 H 128 H 123 H Pulse Rate [ From Monitor] Respiratory 21 28 H Rate Blood Pressure 90/53 88/52 91/47 O2 Sat by Pulse 86 96 Oximetry 05/24/22 05/25/22 05/25/22 23:31 00:01 00:20 Temperature Pulse Rate 128 H 117 H Pulse Rate [ From Monitor] Respiratory 24 22 Rate Blood Pressure 86/49 O2 Sat by Pulse 95 Oximetry 05/25/22 05/25/22 05/25/22 00:31 01:30 02:00 Temperature Pulse Rate 123 H 109 H 124 H Pulse Rate [ From Monitor] Respiratory 24 25 H 26 H Rate Blood Pressure 79/40 73/52 79/51 O2 Sat by Pulse 92 95 92 Oximetry 05/25/22 05/25/22 05/25/22 02:30 03:00 03:30 Temperature Pulse Rate 133 H 129 H 130 H Pulse Rate [ From Monitor] Respiratory 24 23 22 Rate Blood Pressure 87/46 87/46 76/49 O2 Sat by Pulse 88 90 89 Oximetry 05/25/22 05/25/22 05/25/22 03:41 03:51 04:00 Temperature 98.3 F Pulse Rate 127 H 116 H 133 H Pulse Rate [ From Monitor] Respiratory 21 28 H 28 H Rate Blood Pressure 83/54 76/49 81/56 O2 Sat by Pulse 95 89 89 Oximetry 05/25/22 05/25/22 05/25/22 04:11 04:21 04:25 Temperature Pulse Rate 135 H 126 H 124 H Pulse Rate [ From Monitor] Respiratory 33 H 28 H Rate Blood Pressure 81/56 81/56 O2 Sat by Pulse 89 89 Oximetry 05/25/22 05/25/22 05/25/22 04:30 04:41 04:51 Temperature Pulse Rate 124 H 128 H 123 H Pulse Rate [ 124 H From Monitor] Respiratory 25 H 30 H 26 H Rate Blood Pressure 91/49 91/49 91/49 O2 Sat by Pulse 90 90 91 Oximetry 05/25/22 05/25/22 05/25/22 05:01 05:11 05:21 Temperature Pulse Rate 126 H 117 H 132 H Pulse Rate [ From Monitor] Respiratory 26 H 27 H 29 H Rate Blood Pressure 93/50 93/50 93/50 O2 Sat by Pulse 90 84 95 Oximetry 05/25/22 05/25/22 05/25/22 05:30 05:40 05:50 Temperature Pulse Rate 113 H 123 H 125 H Pulse Rate [ From Monitor] Respiratory 24 28 H 29 H Rate Blood Pressure 81/48 81/48 81/48 O2 Sat by Pulse 96 98 97 Oximetry 05/25/22 05/25/22 05/25/22 06:30 06:41 06:51 Temperature Pulse Rate 109 H 118 H 126 H Pulse Rate [ From Monitor] Respiratory 28 H 22 22 Rate Blood Pressure 87/64 87/64 87/64 O2 Sat by Pulse 82 L 98 97 Oximetry 05/25/22 05/25/22 05/25/22 07:00 07:06 07:11 Temperature 99.9 F H Pulse Rate 111 H 106 H Pulse Rate [ From Monitor] Respiratory 23 17 Rate Blood Pressure 82/58 82/58 O2 Sat by Pulse 97 98 Oximetry 05/25/22 05/25/22 07:21 10:12 Temperature Pulse Rate 126 H 137 H Pulse Rate [ From Monitor] Respiratory 24 Rate Blood Pressure 82/58 80/56 O2 Sat by Pulse 96 Oximetry - General Appearance General appearance: well-developed, appears stated age EENT: ATNC, PERRL, mucous membranes moist Neck: no JVD Respiratory: Present: Decreased Breath Sounds Cardiology: regular, S1S2 Gastrointestinal: normoactive bowel sounds Integumentary: no rash Neurologic: no focal deficit, alert and oriented x3, strength 5/5, CN 3-12 intact - Lab 05/24/22 08:15 05/24/22 05:15 Most recent lab results ABG pH 7.367 pH Units (7.350-7.450) 05/18/22 06:00 ABG pCO2 44.9 mm Hg 05/18/22 06:00 ABG pO2 158.7 mm Hg (80.0-90.0) H 05/18/22 06:00 ABG HCO3 25.2 mmol/L (20.0-26.0) 05/18/22 06:00 ABG O2 Saturation 98.9 % (95.0-99.0) 05/18/22 06:00 Calcium 8.9 mg/dL (8.4-10.2) 05/24/22 05:15 Phosphorus 3.90 mg/dL (2.5-4.5) D 05/24/22 05:15 Magnesium 2.20 mg/dL (1.7-2.3) 05/24/22 05:15 Medications & Allergies - Medications Allergies/Adverse Reactions: Allergies No Known Allergies Allergy (Unverified 05/17/22 15:36) Home Medications: Home Medications Medication Instructions Recorded Confirmed Last Taken Type ALPRAZolam 0.5 mg PO BID 05/19/22 05/19/22 Unknown History Clopidogrel [Plavix] 75 mg PO QDAY 05/19/22 05/19/22 Unknown History Losartan [Cozaar] 100 mg PO QDAY 05/19/22 05/19/22 Unknown History Metoprolol [Lopressor TAB] 100 mg PO BID 05/19/22 05/19/22 Unknown History NIFEdipine [Nifedipine ER] 60 mg PO BID 05/19/22 05/19/22 Unknown History Oxycodone HCl/Acetaminophen 1 each PO Q8H PRN 05/19/22 05/19/22 Unknown History [Oxycodone-Acetaminophen 10-325] QUEtiapine [SEROquel] 50 mg PO BID 05/19/22 05/19/22 Unknown History Trelegy Ellipta 100-62.5-25 100 mcg INHALATION DAILY 05/19/22 05/19/22 Unknown History dilTIAZem [CarDIZEM] 180 mg PO BID 05/19/22 05/19/22 Unknown History Active Medications: Generic Name Dose Route Start Last Admin Trade Name Freq PRN Reason Stop Dose Admin Acetaminophen 650 mg 05/17/22 14:26 05/24/22 01:13 Acetaminophen 325 Mg Tab PO 650 mg Q4H PRN Administration Pain MILD(1-3)/Fever >100.5/DYER Albumin Human 25 gm 05/18/22 09:10 05/22/22 14:54 Albumin Human 25% (25 Gm/100 Ml) Inj IV 25 gm TOM PRN Administration Hypotension Albuterol 2.5 mg 05/18/22 06:02 Albuterol 2.5 Mg/3 Ml Nebu IH Q3HRT PRN Wheezing Alprazolam 0.5 mg 05/23/22 12:50 05/23/22 21:03 Alprazolam 0.5 Mg Tab PO 0.5 mg Q8HR PRN Administration Anxiety/agitation Aspirin 81 mg 05/21/22 10:00 05/24/22 19:02 Aspirin Ec 81 Mg Tab PO 81 mg QDAY DAQUAN Administration Dextrose 50 ml 05/18/22 15:00 Dextrose 50% In Water (25gm) 50 Ml Syringe IV Q30MIN PRN Hypoglycemia Protocol Diltiazem HCl 60 mg 05/25/22 14:00 Diltiazem 60 Mg Tab PO TID DAQUAN Diphenhydramine HCl 25 mg 05/20/22 13:30 05/24/22 23:31 Diphenhydramine 25 Mg Cap PO 25 mg Q6H PRN Administration Itching Docusate Sodium 100 mg 05/22/22 10:00 05/25/22 10:11 Docusate Sodium 100 Mg Cap PO 100 mg BID DAQUAN Administration Epoetin Jacinto-epbx 10,000 unit 05/18/22 09:10 05/22/22 16:56 Epoetin Jacinto-Epbx 10,000 Unit/1 Ml Vial IV 10,000 unit TOM PRN Administration hemodialysis Famotidine 20 mg 05/20/22 10:00 05/25/22 10:11 Famotidine 20 Mg Tab PO 20 mg QDAY DAQUAN Administration Sodium Chloride 100 mls @ 999 mls/hr 05/24/22 08:11 Nacl 0.9% IV TOM PRN Hypotension Losartan Potassium 100 mg 05/23/22 10:00 05/25/22 10:12 Losartan 50 Mg Tab PO Not Given QDAY DAQUAN Metoprolol Tartrate 100 mg 05/25/22 22:00 Metoprolol Tartrate 100 Mg Tab PO BID DAQUAN Morphine Sulfate 2 mg 05/17/22 14:26 05/24/22 23:31 Morphine 2 Mg/1 Ml Inj IV 2 mg Q4H PRN Administration Pain, Moderate (4-6) Ondansetron HCl 4 mg 05/24/22 17:30 Ondansetron 4 Mg/2 Ml Inj IV Q8H PRN Nausea And Vomiting Oxycodone/Acetaminophen 1 tab 05/21/22 11:00 05/24/22 01:14 Oxycodone /Acetaminophen 5-325mg Tab PO 1 tab Q6H PRN Administration Pain, Moderate (4-6) Quetiapine Fumarate 150 mg 05/24/22 18:00 05/25/22 10:11 Quetiapine 100 Mg Tab PO 150 mg QDAY DAQUAN Administration Quetiapine Fumarate 200 mg 05/24/22 17:30 05/24/22 23:37 Quetiapine 100 Mg Tab PO 200 mg QHS DAQUAN Administration Senna/Docusate Sodium 1 tab 05/22/22 22:00 05/24/22 23:30 Sennosides/Docusate Sodium 8.6/50 Mg Tab PO 1 tab QHS DAQUAN Administration Sodium Chloride 10 ml 05/17/22 22:00 05/25/22 10:11 Sodium Chloride 0.9% 10 Ml Flush Syringe IV 10 ml BID DAQUAN Administration Sodium Chloride 10 ml 05/17/22 14:26 Sodium Chloride 0.9% 10 Ml Flush Syringe IV PRN PRN LINE FLUSH
--- NOTE | 2022-05-25 12:14 | Progress Note ---
<ARIANA HARDY - Last Filed: 05/25/22 16:19> Assessment and Plan Assessment and plan: This is a 56-year-old male with HTN, cardiomyopathy, ESRD on HD, COPD, former cocaine abuser, SDH with left shift and hemoperitoneum s/p decompressive craniotomy and paracentesis, acute hypoxic respiratory failure s/p tracheostomy with eventual decannulation who was admitted with acute hypoxic respiratory failure requiring ventilatory support. Hospital course to date: 05/18: Patient is following commands remains sedated on Precedex. Patient will receive hemodialysis today. Likely will CPAP tomorrow. NG tube placed and started on tube feedings. 05/19: S/p extubation, stable on RA. Patient is s/p fall today, now c/o of Left elbow and pelvic pain. Orders placed for Lt. elbow X-ray and CT head/lumbar spine/pelvic. PRN analgesia orderd for pain control. Patient remains in Afib with RVR HR in the 120-130s, currently on PO amio. Patient's home meds list is available will resume home medications for rate control. Possible Cardiology consult if Afib RVR persists. Will keep patient in the ICU for another 24hrs post extubation, possible transfer to the floor tomorrow if patient remains stable. 05/20: Increase anxiety and agitation overnight, back on low dose precedex gtt. Lt. elbow X-ray and CT scans reviewed, fractures enthesophytes, superior and inferior pubic rami with soft tissue hematoma reported. H&H is stable, no s/s of any active bleeding. Ortho consulted for further eval and treat. Continue to trend CBC and PRN analgesia for pain control. Patient remains in Afib with RVR, on BB, BP stable. Given patient's current Afib with RVR, will continue VTE proph for now, awaiting Cardio and Ortho recommendations. Cardiology also consulted. Patient's home seroquel and antianxiety regime resumed. Wean off precedex gtt for RASS goal of 0 to -1. Plan for HD today per Nephro. PT/OT ordered. 05/21: Remains on precedex gtt due to increase agitation and combativeness overnight, symptoms resolved this am. Patient's family reported multiple psych issues since childhood. Seroquel adjusted and Mental health/psych consulted. Patient remains in Afib but in rate control this am. Cardiology recommendations appreciated, 2D echo pending. Attending also discussed with Ortho, with no indication of any surgery at this time. Ortho recommends PT/OT and weight bearing as tolerated. Full consult pending. JESSICA alston ordered. PRN analgesia for pain control. 05/22: Remains on precedex, more calm and appropriate this am. Remains on 2L NC, hypoxia noted overnight on RA, recent CXR noted with increase CHF/pulmonary edema. Patient remains in Afib but in control rate. 2D echo and cardiology recommendations noted. Patient with low BP this am, BB reduced to 50mg BID and antihypertensive therapy held today. H&H also dropped this am and worsen thrombocytopenia this am, no s/s of any active bleeding. Will hold AC for now, 1unit of PRBCs rdered and iHD today per Nephro. Patient has been refusing PT and OOB activity, still c/o of buttocks and hip pain. Continue to encourage OOB and physical therapy. PRN analgesia for pain control. Monitor and replace electrolytes as needed. 05/23: Mentation remains labile. Awake but still with periods of confusion and agitation. Off precedex gtt this am. Patient tolerated HD yesterday 3L removed, stable on 2L NC. In Afib with RVR, HR in 140s this am. D/w Cardio plan to adjust regimen therapy for rate control. Okay to transfer patient to IMCU per CCM. 05/24: Patient seen and examined, Cardiology evaluated the patient yesterday made some adjustment to BP management. Patient remains confused with AMS and cxr obtained this morning due to worsening Hypoxia shows increased opacities to the Right lung. Sent to the Pulmonary doctor for review. Will keep NPO for now and may need dobhuff if prolonged AMS. Patient underwent speech eval prior and passed 05/19. Considering the waxing and waning mentation, will consider obtaining MRI Brain when stable and also obtain Neurology consult. Continue IMCU care, may need to move back to ICU if no improvement. Discussed with [place] and [place]. HD ordered for today 05/25: Awake, still confused with periods of agitation. MRI and Neurology consult pending. Patient remains in Afib RVR this am with low BP. S/p iHD yesterday 2L removed. still on NRB SPO2 above 95%. Hold all BB, cardizem, and all antihypertensive today. X1 of IV albumin and 500cc IVF bolus today, and midodrine was initiated. Patient is also hyperkalemic this am, plan for iHD again today. Thoracentesis pending for moderate pleural effusion. Assessment and Plan Neuro: Acute Metabolic Encephalopathy-improved h/o SDH with left shift s/p decompressive craniotomy, h/o cocaine abuse/Spych issues S/p Fall -S/p extubation, off sedations -AAO, but with periods of disorientation, very impulsive -Remains on precedex overnight due to increase anxiety/agitation/combativeness -Patient's family reported multiple psych issues since childhood -seroquel adjusted, continue PRN xanax -Wean precededx gtt for RASS goal 0 to -1 -Mental Health/psych consulted -Reorientation as needed -Maintain sleep-wake cycle -As needed analgesia -Fall precaution -PT/OT consulted Cardiac: Atrial Fibrilation with RVR, Systolic HFrEF, Moderate Pulmonary HTN h/o cardiomyopathy, HTN -Patient remains in Afib, but in rate control this am. VSS -Cardiology consulted, appreciate recommendations -2D echo reviewed, LVEF 40-45%, moderate pulmonary HTN- RSVP 45-50 -Low BP today, all antihypertensive and antiarrhytmic therapy held -X1 dose of IV albumin and 500 cc NS, midodrine added -Blood pressure monitoring per protocol -Maintain SBP less than 160 -AC held due to anemia and thrombocytopenia Respiratory: Acute hypoxic respiratory failure, s/p tracheostomy with eventual decannulation, COPD, Moderate Right Pleural Effusion -[facility] consulted, appreciate recommendations -Intubated on 05/17 at OSH; 05/19 s/p extubation -Now on NRB -Recent CXR reviewed, with moderate right pleural effusuion -Thoracentesis pending -Continue iHD per Nephro, 2L removed yesterday -Continue O2 supplementation and wean as tolerated -SPO2 monitoring for SPO2 goal aboev 92% -Of note patient self decannulated on 05/05 Superior and Inferior Pubic Rami fractures Left Enthesophytes Fracture S/p Fall -Noted from Lt. Elbow X-ray and CT scan, see report for details -Ortho consulted, appreciate recommendations -Attending also discussed with Ortho, with no indication of any surgery at this time. -Ortho recommends PT/OT and weight bearing as tolerated. -LUE sling ordered. -PT/OT consulted -Patient has been refusing PT and OOB activity -Fall precaution -Continue to encourage OOB and physical therapy -PRN Analgesia for pain control GI: Moderate protein calorie malnutrition -S/p PEG tube placement, however now off -Patient removed Richter catheter that was in the PEG-tube stoma, dressing present -Patient passed bedside swallow, renal diet ordered -Speech also following -S/p paracentesis at [facility] on 05/06 with removal of 2.7 L : ESRD on HD, hyperkalemia -Nephrology consulted, appreciate recommendations -Continue HD per Nephro -Monitor intake and output -Renally dose medications -Avoid nephrotoxic medications -Monitor and replace electrolytes as needed -Trend BMP Heme: Anemia of Chronic Disease, Thrombocytopenia -Probably chronic 2/2 of ESRD -s/p 1unit of PRBCs -H&H stable and plt improved -No s/s of any active bleeding -Continue Epogen with iHD per Nephro -AC held due to anemia and thrombocytopenia -Transfuse for hgb less than 7 ID: Sepsis (POA) -Leukopenia, CXR showed left-sided effusion with associated opacity and mild right basilar atelectasis -COVID-19 PCR negative, MRSA PCR negative -s/p Antibiotic therapy with cefepime -f/u blood culture -Monitor WBC and temperature curve GI/DVT Prophylaxis -PPI- pepcid -SCDs to bilateral lower extremities while in bed The high probability of a clinically significant, sudden or life threatening deterioration of the [multi] system(s) required my full and direct attention, intervention and personal management. The aggregate critical care time was [60] minutes. This time is in addition to time spent performing reported procedures but includes the following: [x] Data Review and interpretation [x] Patient assessment and monitoring of vital signs [x] Documentation [x] Medication orders and management Disposition Plan: IMCU Total Time Spent with Patient (Minutes): 60 History Interval history: Patient seen and examined at the bedside. Awake but still confused with periods of agitation, now on bilateral wrist restraints. On 100% NRB, SPO2 above 95%. In Afib with RVR this am, HR in the 110-120s, Hypotensive this am. 2L removed in dialysis yesterday Hospitalist Physical - Physical exam Narrative exam: General appearance: Present: no acute distress, cachectic - EENT Eyes: Present: PERRL ENT: hearing intact - Neck Neck: Present: normal ROM - Respiratory Respiratory effort: normal Respiratory: bilateral: diminished - Cardiovascular Rhythm: irregularly irregular Heart Sounds: Present: S1 & S2 - Extremities Extremities: no ischemia, pulses intact, pulses symmetrical Peripheral Pulses: within normal limits - Abdominal General gastrointestinal: soft, non-distended, normal bowel sounds - Integumentary Integumentary: Present: warm, dry - Psychiatric Psychiatric: other (Confused, Impulsive at time) - Neurologic Neurologic: moves all extremities, other (Awake but confused, with periods of agitation) - Allied Health Allied health notes reviewed: nursing, case management - Constitutional Vitals: Temp Pulse Resp BP Pulse Ox 99.2 F 137 H 24 80/56 95 05/25/22 11:53 05/25/22 10:12 05/25/22 10:00 05/25/22 10:12 05/25/22 10:00 Results - Labs CBC & Chem 7: 05/25/22 12:57 05/24/22 05:15 Labs: Laboratory Last Values WBC 8.8 K/mm3 (4.5-11.0) 05/24/22 08:15 RBC 2.79 M/mm3 (3.65-5.03) L 05/24/22 08:15 Hgb 8.0 gm/dl (11.8-15.2) L 05/24/22 08:15 Hct 24.6 % (35.5-45.6) L 05/24/22 08:15 MCV 89 fl (84-94) 05/24/22 08:15 MCH 29 pg (28-32) 05/24/22 08:15 MCHC 33 % (32-34) 05/24/22 08:15 RDW 20.2 % (13.2-15.2) H 05/24/22 08:15 Plt Count 133 K/mm3 (140-440) L 05/24/22 08:15 Lymph % (Auto) 6.0 % (13.4-35.0) L 05/24/22 08:15 Barber % (Auto) 9.7 % (0.0-7.3) H 05/24/22 08:15 Eos % (Auto) 1.0 % (0.0-4.3) 05/24/22 08:15 Baso % (Auto) 0.5 % (0.0-1.8) 05/24/22 08:15 Lymph # (Auto) 0.5 K/mm3 (1.2-5.4) L 05/24/22 08:15 Barber # (Auto) 0.9 K/mm3 (0.0-0.8) H 05/24/22 08:15 Eos # (Auto) 0.1 K/mm3 (0.0-0.4) 05/24/22 08:15 Baso # (Auto) 0.0 K/mm3 (0.0-0.1) 05/24/22 08:15 Seg Neutrophils % 82.8 % (40.0-70.0) H 05/24/22 08:15 Seg Neutrophils # 7.3 K/mm3 (1.8-7.7) 05/24/22 08:15 ABG pH 7.367 pH Units (7.350-7.450) 05/18/22 06:00 ABG pCO2 44.9 mm Hg 05/18/22 06:00 ABG pO2 158.7 mm Hg (80.0-90.0) H 05/18/22 06:00 ABG HCO3 25.2 mmol/L (20.0-26.0) 05/18/22 06:00 ABG O2 Saturation 98.9 % (95.0-99.0) 05/18/22 06:00 ABG O2 Content 13.0 (0.0-44) 05/18/22 06:00 ABG Base Excess -0.3 mmol/L (-2.0-3.0) 05/18/22 06:00 ABG Hemoglobin 9.4 gm/dl (14.0-18.0) L 05/18/22 06:00 ABG Carboxyhemoglobin 2.3 % (0.0-5.0) 05/18/22 06:00 ABG Methemoglobin 0.5 % (0.0-1.5) 05/18/22 06:00 Oxyhemoglobin 96.2 % (95.0-99.0) 05/18/22 06:00 FiO2 40 % 05/18/22 06:00 Sodium 134 mmol/L (137-145) L 05/24/22 05:15 Potassium 5.8 mmol/L (3.6-5.0) H D 05/24/22 05:15 Chloride 96.4 mmol/L (98-107) L 05/24/22 05:15 Carbon Dioxide 23 mmol/L (22-30) 05/24/22 05:15 Anion Gap 20 mmol/L 05/24/22 05:15 BUN 48 mg/dL (9-20) H 05/24/22 05:15 Creatinine 5.4 mg/dL (0.8-1.3) H 05/24/22 05:15 Estimated GFR 11 ml/min 05/24/22 05:15 BUN/Creatinine Ratio 9 % 05/24/22 05:15 Glucose 98 mg/dL (75-100) 05/24/22 05:15 POC Glucose 126 mg/dL (70-105) H 05/22/22 21:28 Calcium 8.9 mg/dL (8.4-10.2) 05/24/22 05:15 Phosphorus 3.90 mg/dL (2.5-4.5) D 05/24/22 05:15 Magnesium 2.20 mg/dL (1.7-2.3) 05/24/22 05:15 Total Bilirubin 0.40 mg/dL (0.1-1.2) 05/17/22 14:28 AST 7 units/L (5-40) 05/17/22 14:28 ALT < 5 units/L (7-56) L 05/17/22 14:28 Alkaline Phosphatase 78 units/L (35-129) 05/17/22 14:28 Ammonia 24.0 umol/L (25-60) L 05/24/22 08:15 Total Protein 6.1 g/dL (6.3-8.2) L 05/17/22 14:28 Albumin 2.9 g/dL (3.9-5) L 05/17/22 14:28 Albumin/Globulin Ratio 0.9 % 05/17/22 14:28 Nasal Screen MRSA (PCR) Negative (Negative) 05/18/22 08:30 Coronavirus (PCR) Negative (Negative) 05/24/22 11:05 Hepatitis A IgM Ab Non-reactive (NonReactive) 05/18/22 18:10 Hep Bs Antigen Non-reactive (Negative) 05/18/22 18:10 Hep B Core IgM Ab Non-reactive (NonReactive) 05/18/22 18:10 Hepatitis C Antibody Reactive (NonReactive) A 05/18/22 18:10 Blood Type A NEGATIVE 05/22/22 06:00 Antibody Screen Negative 05/22/22 06:00 Crossmatch See Detail 05/22/22 06:00 Microbiology: Microbiology 05/24/22 10:45 Peripheral/Venous Blood Culture - Preliminary NO GROWTH AFTER 24 HOURS 05/24/22 10:15 Peripheral/Venous Blood Culture - Preliminary NO GROWTH AFTER 24 HOURS Active Medications - Current Medications Current Medications: Generic Name Dose Route Start Last Admin Trade Name Freq PRN Reason Stop Dose Admin Acetaminophen 650 mg 05/17/22 14:26 05/24/22 01:13 Acetaminophen 325 Mg Tab PO 650 mg Q4H PRN Administration Pain MILD(1-3)/Fever >100.5/DYER Albumin Human 25 gm 05/18/22 09:10 05/22/22 14:54 Albumin Human 25% (25 Gm/100 Ml) Inj IV 25 gm TOM PRN Administration Hypotension Albumin Human 25 gm 05/25/22 12:05 Albumin Human 25% (25 Gm/100 Ml) Inj IV 05/25/22 12:06 ONCE ONE Albuterol 2.5 mg 05/18/22 06:02 Albuterol 2.5 Mg/3 Ml Nebu IH Q3HRT PRN Wheezing Alprazolam 0.5 mg 05/23/22 12:50 05/23/22 21:03 Alprazolam 0.5 Mg Tab PO 0.5 mg Q8HR PRN Administration Anxiety/agitation Aspirin 81 mg 05/21/22 10:00 05/24/22 19:02 Aspirin Ec 81 Mg Tab PO 81 mg QDAY DAQUAN Administration Dextrose 50 ml 05/18/22 15:00 Dextrose 50% In Water (25gm) 50 Ml Syringe IV Q30MIN PRN Hypoglycemia Protocol Diltiazem HCl 60 mg 05/25/22 14:00 Diltiazem 60 Mg Tab PO TID DAQUAN Diphenhydramine HCl 25 mg 05/20/22 13:30 05/24/22 23:31 Diphenhydramine 25 Mg Cap PO 25 mg Q6H PRN Administration Itching Docusate Sodium 100 mg 05/22/22 10:00 05/25/22 10:11 Docusate Sodium 100 Mg Cap PO 100 mg BID DAQUAN Administration Epoetin Jacinto-epbx 10,000 unit 05/18/22 09:10 05/22/22 16:56 Epoetin Jacinto-Epbx 10,000 Unit/1 Ml Vial IV 10,000 unit TOM PRN Administration hemodialysis Famotidine 20 mg 05/20/22 10:00 05/25/22 10:11 Famotidine 20 Mg Tab PO 20 mg QDAY DAQUAN Administration Sodium Chloride 100 mls @ 999 mls/hr 05/24/22 08:11 Nacl 0.9% IV TOM PRN Hypotension Sodium Chloride 500 mls @ 999 mls/hr 05/25/22 12:05 Nacl 0.9% 1000 Ml IV 05/25/22 12:35 BOLUS ONE Losartan Potassium 100 mg 05/23/22 10:00 05/25/22 10:12 Losartan 50 Mg Tab PO Not Given QDAY [facility] Metoprolol Tartrate 100 mg 05/25/22 22:00 Metoprolol Tartrate 100 Mg Tab PO BID DAQUAN Midodrine 10 mg 05/25/22 16:00 Midodrine 10 Mg Tab PO TID@0800,1200,1600 [facility] Morphine Sulfate 2 mg 05/17/22 14:26 05/24/22 23:31 Morphine 2 Mg/1 Ml Inj IV 2 mg Q4H PRN Administration Pain, Moderate (4-6) Ondansetron HCl 4 mg 05/24/22 17:30 Ondansetron 4 Mg/2 Ml Inj IV Q8H PRN Nausea And Vomiting Oxycodone/Acetaminophen 1 tab 05/21/22 11:00 05/24/22 01:14 Oxycodone /Acetaminophen 5-325mg Tab PO 1 tab Q6H PRN Administration Pain, Moderate (4-6) Quetiapine Fumarate 150 mg 05/24/22 18:00 05/25/22 10:11 Quetiapine 100 Mg Tab PO 150 mg QDAY DAQUAN Administration Quetiapine Fumarate 200 mg 05/24/22 17:30 05/24/22 23:37 Quetiapine 100 Mg Tab PO 200 mg QHS DAQUAN Administration Senna/Docusate Sodium 1 tab 05/22/22 22:00 05/24/22 23:30 Sennosides/Docusate Sodium 8.6/50 Mg Tab PO 1 tab QHS DAQUAN Administration Sodium Chloride 10 ml 05/17/22 22:00 05/25/22 10:11 Sodium Chloride 0.9% 10 Ml Flush Syringe IV 10 ml BID DAQUAN Administration Sodium Chloride 10 ml 05/17/22 14:26 Sodium Chloride 0.9% 10 Ml Flush Syringe IV PRN PRN LINE FLUSH Nutrition/Malnutrition Assess - Dietary Evaluation Nutrition/Malnutrition Findings: Nutrition Notes Start: 05/18/22 14:16 Freq: Status: Active Protocol: Document 05/20/22 12:37 LUCERO (Rec: 05/20/22 13:15 LUCERO [id number]) Nutrition Notes Initial or Follow up Reassessment Current Diagnosis CKD (stage V CKD),COPD, Hypertension,Malnutrition Other Pertinent Diagnosis Metabolic Encephalopathy, L- Elbow+Pelvic Fractures s/p Fall, ESRD+HD, Atria Current Diet Renal Diet (since D 05/19), D Suppl (since L 05/20). Labs/Tests 05/20: K 5.4, Cl 96.5, BUN 53, Crea 6.7, Glu 115, Ca 8.1, Phos 7.9. Pertinent Medications 05/20: Nutritionally unremarkable. 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 No body weight change reported in 2 days. Weight Status Appropriate Subjective/Other Information RD consult for routine F/U on TF tolerance/continuation assessment. TF was discontinued and Pt advanced to PO diet, No reports available on Pt's PO intake of meals at the time, will assess at F/U. MD prescribed dietary supplements, I will keep the prescription to compensate for possible poor or insufficient PO intake of meals during LOS . 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 Spoke with the patient's nurse who was aware of the assessment which was conducted the previous day. Patient is safe for a regular diet. Will discharge the order. - END OF NOTE. Pt is on Room Air, O2 saturation @ 100%, according to Physical Assessment History notes. Pt was extubated on 05/19, well tolerated room air directly, according to Progress notes. Pt experienced a fall on 05/19 with subsequent L-elbow and pelvic fractures, according to Progress notes. Pt presents R-hand abrasions and neck surgical wound as signs of concern for skin risk at the time, according to Physical Assessment History notes. Percent of energy/protein needs met: Prescribed Renal Diet provides for energy/protein needs (2, 072 Kcal/77 g) during LOS; additionally, Dietary Supplements will compensate for possible poor or insufficient PO intake of meals with 850 Kcal and 38 g of protein. Burn Absent Trauma Present GI Symptoms None Food Allergy No Skin Integrity/Comment R-hand abrasions+neck surgical woun Minimum of two criteria No Fluid Accumulation N/A Reduced Critical Care Transport Nurse Strength N/A (non-severe) Protein-Calorie Malnutrition N\A #1 Nutrition Diagnosis Swallowing difficulty Comments: TF was discontinued and Pt advanced to PO diet on 05/19. Diagnosis Progress(for reassessment Resolved documentation) Is patient on ventilator? No Is Patient Ambulatory and/or Out of Bed Yes REE-([place]-St. Jeor-ambulatory/OOB) [ [id number] [id number]] Calculation Used for Recommendations [place]-St Jeor Additional Notes Protein: >1.2 g/Kg ABW; >92 g/ day. Fluids: 1 ml/Kcal, or as per MD. Nutrition Intervention Change Diet Order: Continue Renal Diet as tolerated. Nutrition Support: Discontinued. Add Supplement/Snack (indicate name/kcal Continue 8 fl oz Nepro w/ /protein ) CARBSTEADY; BID. Provides kCal: 850 Provides Protein (gm) 38 Goal #1 Compensate, through dietary supplementation, for possible poor or insufficient PO intake of meals during LOS. Goal #2 Adjust the dietary intervention to better serve Pt's needs and clinical conditions during LOS. Follow-Up By: 05/27/22 Additional Comments Continue monitoring food tolerance, %PO intake of meals , dietary supplements, and BM. <SARAH AVITIA E - Last Filed: 05/27/22 07:46> Assessment and Plan Assessment and plan: I saw and evaluated the patient. I agree with the findings and the plan of care as documented in the Nurse Practitioner's~note, with the following corrections and additions. Hospitalist Physical - Constitutional Vitals: Temp Pulse Resp BP Pulse Ox 97.7 F 131 H 25 H 121/77 92 05/27/22 04:00 05/27/22 07:01 05/27/22 07:01 05/27/22 07:01 05/27/22 07:01 Results - Labs CBC & Chem 7: 05/26/22 04:11 05/26/22 04:11 Labs: Laboratory Last Values WBC 7.4 K/mm3 (4.5-11.0) 05/26/22 04:11 RBC 2.86 M/mm3 (3.65-5.03) L 05/26/22 04:11 Hgb 8.2 gm/dl (11.8-15.2) L 05/26/22 04:11 Hct 25.7 % (35.5-45.6) L 05/26/22 04:11 MCV 90 fl (84-94) 05/26/22 04:11 MCH 29 pg (28-32) 05/26/22 04:11 MCHC 32 % (32-34) 05/26/22 04:11 RDW 19.8 % (13.2-15.2) H 05/26/22 04:11 Plt Count 178 K/mm3 (140-440) 05/26/22 04:11 Lymph % (Auto) 10.8 % (13.4-35.0) L 05/25/22 12:57 Barber % (Auto) 13.1 % (0.0-7.3) H 05/25/22 12:57 Eos % (Auto) 1.5 % (0.0-4.3) 05/25/22 12:57 Baso % (Auto) 0.1 % (0.0-1.8) 05/25/22 12:57 Lymph # (Auto) 0.6 K/mm3 (1.2-5.4) L 05/25/22 12:57 Barber # (Auto) 0.8 K/mm3 (0.0-0.8) 05/25/22 12:57 Eos # (Auto) 0.1 K/mm3 (0.0-0.4) 05/25/22 12:57 Baso # (Auto) 0.0 K/mm3 (0.0-0.1) 05/25/22 12:57 Seg Neutrophils % 74.5 % (40.0-70.0) H 05/25/22 12:57 Seg Neutrophils # 4.3 K/mm3 (1.8-7.7) 05/25/22 12:57 ABG pH 7.494 pH Units (7.350-7.450) H 05/25/22 12:00 ABG pCO2 38.0 mm Hg 05/25/22 12:00 ABG pO2 61.1 mm Hg (80.0-90.0) L 05/25/22 12:00 ABG HCO3 28.5 mmol/L (20.0-26.0) H 05/25/22 12:00 ABG O2 Saturation 96.8 % (95.0-99.0) 05/25/22 12:00 ABG O2 Content 9.1 (0.0-44) 05/25/22 12:00 ABG Base Excess 4.9 mmol/L (-2.0-3.0) H 05/25/22 12:00 ABG Hemoglobin 6.8 gm/dl (14.0-18.0) L 05/25/22 12:00 ABG Carboxyhemoglobin 1.8 % (0.0-5.0) 05/25/22 12:00 ABG Methemoglobin 0.5 % (0.0-1.5) 05/25/22 12:00 Oxyhemoglobin 94.5 % (95.0-99.0) L 05/25/22 12:00 FiO2 100 % 05/25/22 12:00 Sodium 138 mmol/L (137-145) 05/26/22 04:11 Potassium 5.3 mmol/L (3.6-5.0) H 05/26/22 04:11 Chloride 97.8 mmol/L (98-107) L 05/26/22 04:11 Carbon Dioxide 25 mmol/L (22-30) 05/26/22 04:11 Anion Gap 21 mmol/L 05/26/22 04:11 BUN 46 mg/dL (9-20) H 05/26/22 04:11 Creatinine 5.7 mg/dL (0.8-1.3) H 05/26/22 04:11 Estimated GFR 10 ml/min 05/26/22 04:11 BUN/Creatinine Ratio 8 % 05/26/22 04:11 Glucose 81 mg/dL (75-100) 05/26/22 04:11 POC Glucose 126 mg/dL (70-105) H 05/22/22 21:28 Lactic Acid 1.00 mmol/L (0.7-2.0) 05/25/22 13:20 Calcium 9.1 mg/dL (8.4-10.2) 05/26/22 04:11 Phosphorus 3.90 mg/dL (2.5-4.5) D 05/24/22 05:15 Magnesium 2.20 mg/dL (1.7-2.3) 05/24/22 05:15 Total Bilirubin 0.40 mg/dL (0.1-1.2) 05/17/22 14:28 AST 7 units/L (5-40) 05/17/22 14:28 ALT < 5 units/L (7-56) L 05/17/22 14:28 Alkaline Phosphatase 78 units/L (35-129) 05/17/22 14:28 Ammonia 24.0 umol/L (25-60) L 05/24/22 08:15 Lactate Dehydrogenase 149 units/L (91-180) 05/25/22 12:57 Total Protein 6.1 g/dL (6.3-8.2) L 05/17/22 14:28 Albumin 2.9 g/dL (3.9-5) L 05/17/22 14:28 Albumin/Globulin Ratio 0.9 % 05/17/22 14:28 Vitamin B12 633.2 pg/mL (211-911) 05/27/22 04:33 Folate 6.08 ng/mL (7.3-26.0) L 05/27/22 04:33 TSH 8.200 mlU/mL (0.270-4.200) H 05/27/22 04:33 Fluid Type Pleural 05/26/22 11:59 Fluid Color Vicenta 05/26/22 11:59 Fluid Appearance Cloudy 05/26/22 11:59 Fluid WBC 1375 /mm3 05/26/22 11:59 Fluid RBC 65403 /mm3 05/26/22 11:59 Fluid Seg Neutrophils 88.0 % 05/26/22 11:59 Fluid Lymphocytes 6.0 % 05/26/22 11:59 Fluid Monocytes 6.0 % 05/26/22 11:59 Nasal Screen MRSA (PCR) Negative (Negative) 05/18/22 08:30 Syphilis IgG/IgM Ab Nonreactive (NonReactive) 05/27/22 04:33 Coronavirus (PCR) Negative (Negative) 05/24/22 11:05 Hepatitis A IgM Ab Non-reactive (NonReactive) 05/18/22 18:10 Hep Bs Antigen Non-reactive (Negative) 05/18/22 18:10 Hep B Core IgM Ab Non-reactive (NonReactive) 05/18/22 18:10 Hepatitis C Antibody Reactive (NonReactive) A 05/18/22 18:10 Blood Type A NEGATIVE 05/22/22 06:00 Antibody Screen Negative 05/22/22 06:00 Crossmatch See Detail 05/22/22 06:00 Microbiology: Microbiology 05/26/22 11:59 Pleural Fluid - Pleura,Rt Lung Body Fluid Culture - Preliminary 05/24/22 10:45 Peripheral/Venous Blood Culture - Preliminary NO GROWTH AFTER 48 HOURS 05/24/22 10:15 Peripheral/Venous Blood Culture - Preliminary NO GROWTH AFTER 48 HOURS Active Medications - Current Medications Current Medications: Generic Name Dose Route Start Last Admin Trade Name Freq PRN Reason Stop Dose Admin Acetaminophen 650 mg 05/17/22 14:26 05/24/22 01:13 Acetaminophen 325 Mg Tab PO 650 mg Q4H PRN Administration Pain MILD(1-3)/Fever >100.5/DYER Albumin Human 25 gm 05/18/22 09:10 05/22/22 14:54 Albumin Human 25% (25 Gm/100 Ml) Inj IV 25 gm TOM PRN Administration Hypotension Albuterol 2.5 mg 05/18/22 06:02 Albuterol 2.5 Mg/3 Ml Nebu IH Q3HRT PRN Wheezing Alprazolam 0.5 mg 05/23/22 12:50 05/27/22 02:37 Alprazolam 0.5 Mg Tab PO 0.5 mg Q8HR PRN Administration Anxiety/agitation Amiodarone HCl 200 mg 05/26/22 14:00 05/26/22 21:10 Amiodarone 200 Mg Tab PO 200 mg BID DAQUAN Administration Lipase/Protease/Amylase 1 each 05/26/22 11:06 Lipase 10,500/Protease 25,000/Amylase 43,750 (Units) Dr Martinez FEEDTUBE PRN PRN For Clogged Feeding Tube Aspirin 81 mg 05/21/22 10:00 05/26/22 12:20 Aspirin Ec 81 Mg Tab PO 81 mg QDAY DAQUAN Administration Dextrose 50 ml 05/18/22 15:00 Dextrose 50% In Water (25gm) 50 Ml Syringe IV Q30MIN PRN Hypoglycemia Protocol Diltiazem HCl 60 mg 05/25/22 14:00 05/26/22 21:10 Diltiazem 60 Mg Tab PO 60 mg TID DAQUAN Administration Diphenhydramine HCl 25 mg 05/20/22 13:30 05/24/22 23:31 Diphenhydramine 25 Mg Cap PO 25 mg Q6H PRN Administration Itching Docusate Sodium 100 mg 05/22/22 10:00 05/26/22 21:09 Docusate Sodium 100 Mg Cap PO 100 mg BID DAQUAN Administration Epoetin Jacinto-epbx 10,000 unit 05/18/22 09:10 05/26/22 20:11 Epoetin Jacinto-Epbx 10,000 Unit/1 Ml Vial IV 10,000 unit TOM PRN Administration hemodialysis Famotidine 20 mg 05/20/22 10:00 05/26/22 11:30 Famotidine 20 Mg Tab PO 20 mg QDAY DAQUAN Administration Sodium Chloride 100 mls @ 999 mls/hr 05/24/22 08:11 Nacl 0.9% IV TOM PRN Hypotension Losartan Potassium 50 mg 05/26/22 10:00 05/26/22 12:20 Losartan 50 Mg Tab PO Not Given QDAY DAQUAN Metoprolol Tartrate 100 mg 05/25/22 22:00 05/26/22 21:09 Metoprolol Tartrate 100 Mg Tab PO 100 mg BID DAQUAN Administration Ondansetron HCl 4 mg 05/24/22 17:30 Ondansetron 4 Mg/2 Ml Inj IV Q8H PRN Nausea And Vomiting Oxycodone/Acetaminophen 1 tab 05/21/22 11:00 05/26/22 11:31 Oxycodone /Acetaminophen 5-325mg Tab PO 1 tab Q6H PRN Administration Pain, Moderate (4-6) Quetiapine Fumarate 150 mg 05/24/22 18:00 05/26/22 11:31 Quetiapine 100 Mg Tab PO 150 mg QDAY DAQUAN Administration Quetiapine Fumarate 200 mg 05/24/22 17:30 05/26/22 21:09 Quetiapine 100 Mg Tab PO 200 mg QHS DAQUAN Administration Senna/Docusate Sodium 1 tab 05/22/22 22:00 05/26/22 21:09 Sennosides/Docusate Sodium 8.6/50 Mg Tab PO 1 tab QHS DAQUAN Administration Simple Syrup 15 ml 05/26/22 11:06 Simple Syrup 15 Ml FEEDTUBE PRN PRN Hypoglycemia Simple Syrup 30 ml 05/26/22 11:06 Simple Syrup 15 Ml FEEDTUBE PRN PRN Hypoglycemia Sodium Bicarbonate 325 mg 05/26/22 11:06 Sodium Bicarbonate 325 Mg Tab FEEDTUBE PRN PRN For Clogged Feeding Tube Sodium Chloride 10 ml 05/17/22 22:00 05/26/22 21:10 Sodium Chloride 0.9% 10 Ml Flush Syringe IV 10 ml BID DAQUAN Administration Sodium Chloride 10 ml 05/17/22 14:26 Sodium Chloride 0.9% 10 Ml Flush Syringe IV PRN PRN LINE FLUSH Nutrition/Malnutrition Assess - Dietary Evaluation Nutrition/Malnutrition Findings: Nutrition Notes Start: 05/18/22 14:16 Freq: Status: Active Protocol: Document 05/26/22 10:24 LUCERO (Rec: 05/26/22 11:11 LUCERO [id number]) Nutrition Notes Initial or Follow up Reassessment Current Diagnosis CKD (stage V CKD),COPD, Hypertension,Respiratory Failure,Malnutrition Other Pertinent Diagnosis Metabolic Encephalopathy, L- Elbow+Pelvic Fractures s/p Fall, ESRD+HD, Atria Current Diet Renal Diet (since D 05/19), TF -Nepro w/CARBSTEADY @ 50 ml/hr (from L 05/26) Labs/Tests 05/26: K 5.3, Cl 97.8, BUN 46, Crea 5.7. Pertinent Medications 05/26: Nutritionally unremarkable. Height 6 ft 4 in Weight 76.3 kg [place] Body Weight (kg) 91.81 BMI 20.5 Weight change and time frame No body weight change reported in 1 week. Weight Status Appropriate Subjective/Other Information RD consult for write/manage TF assessment. PO diet continues as prescribed, but RN states that Pt PO intake of meals is Negligible (0%). I will prescribe TF to provide Pt with energy/protein needs during LOS. Pt is on Nasal Cannula, O2 saturation @ 94%, according to Physical Assessment History notes. 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 Percent of energy/protein needs met: Prescribed TF-Nepro w/ CARBSTEADY @ 50 ml/hr provides for energy/protein needs (2, 180 Kcal/98 g) during LOS, 99% Kcal; 100% AA. Burn Absent Trauma Present GI Symptoms None Food Allergy No Skin Integrity/Comment R-hand abrasions+neck surgical woun Current % PO Negligible Minimum of two criteria No Fluid Accumulation N/A Reduced Critical Care Transport Nurse Strength N/A (non-severe) Protein-Calorie Malnutrition N\A #1 Nutrition Diagnosis Swallowing difficulty Comments: PO diet discontinued and TF request placed by MD. Diagnosis Progress(for reassessment Continues documentation) Is patient on ventilator? No Is Patient Ambulatory and/or Out of Bed Yes REE-([facility]. or-ambulatory/OOB) [ [id number] [id number]] Calculation Used for Recommendations [facility] Additional Notes Protein: >1.2 g/Kg ABW; >92 g/ day. Fluids: 1 ml/Kcal, or as per MD. Nutrition Intervention Change Diet Order: Discontinued. Nutrition Support: Start TF-Nepro w/CARBSTEADY @ 50 ml/hr. Flush: 220 ml water Q 4 hr, or as per MD. Kcal 2,180 Protein (gm) 98 Carbohydrates (gm) 195 Fat (gm) 116 Fluid (mL) 880 Fiber (gm) 15 % RDI: 99% Kcal; 100% AA. Add Supplement/Snack (indicate name/kcal Discontinued. /protein ) Goal #1 Provide at least 75% of energy /protein needs through Enteral Feeding during LOS. Goal #2 Adjust the dietary intervention to better serve Pt's needs and clinical conditions during LOS. Follow-Up By: 05/28/22 Additional Comments Start monitoring TF tolerance and BM.
[2022-05-25] MEDS ORDERED: SODIUM CHLORIDE 0.9% 1000 ML 500 ML IV ONE (12:15)
[2022-05-25] MEDS ORDERED: ALBUMIN HUMAN 25% (25 GM/100 ML) INJ IV SCH (12:30)
[2022-05-25] MEDS: MIDODRINE 10 MG TAB PO SCH ×2 (12:40→16:25)
[2022-05-25 12:41] LABS: ABG Base Excess 4.9 mmol/L (-2.0-3.0); ABG HCO3 28.5 mmol/L (20.0-26.0); ABG Methemoglobin 0.5 % (0.0-1.5); ABG Oxygen Saturation 96.8 % (95.0-99.0); ABG PH 7.494 pH Units (7.350-7.450); ABG PO2 61.1 mm Hg (80.0-90.0)
[2022-05-25 13:01] LABS: Basophils % (Auto) 0.1 % (0.0-1.8); Eosinophils # (Auto) 0.1 K/mm3 (0.0-0.4); Eosinophils % (Auto) 1.5 % (0.0-4.3); Lymphocytes # (Auto) 0.6 K/mm3 (1.2-5.4); Lymphocytes % (Auto) 10.8 % (13.4-35.0); Mean Corpuscular HGB Conc 32 % (32-34); Mean Corpuscular Volume 94 fl (84-94); Monocytes # (Auto) 0.8 K/mm3 (0.0-0.8); Monocytes % (Auto) 13.1 % (0.0-7.3); Platelet Count 134 K/mm3 (140-440); Red Blood Count 2.33 M/mm3 (3.65-5.03)
[2022-05-25 13:02] LABS: Red Cell Distribution Width 20.5 % (13.2-15.2)
[2022-05-25] MEDS: ASPIRIN EC 81 MG TAB PO SCH (13:11)
[2022-05-25] MEDS: dilTIAZem 60 MG TAB PO SCH ×2 (16:26→20:08)
[2022-05-25] MEDS: MORPHINE 2 MG/1 ML INJ IV PRN (20:10)
[2022-05-25] MEDS: SENNOSIDES/DOCUSATE SODIUM 8.6/50 MG TAB PO SCH (21:29)
[2022-05-25] MEDS: METOPROLOL TARTRATE 100 MG TAB PO SCH (21:30)
[2022-05-26] MEDS: MORPHINE 2 MG/1 ML INJ IV PRN (00:06)
[2022-05-26] MEDS ORDERED: dilTIAZem 25 MG/5 ML INJ IV ONE ×2 (01:00→04:38)
[2022-05-26 04:41] LABS: Hematocrit 25.7 % (35.5-45.6); Hemoglobin 8.2 gm/dl (11.8-15.2); Mean Corpuscular HGB Conc 32 % (32-34); Mean Corpuscular Volume 90 fl (84-94); Platelet Count 178 K/mm3 (140-440); Red Blood Count 2.86 M/mm3 (3.65-5.03); Red Cell Distribution Width 19.8 % (13.2-15.2)
[2022-05-26 04:57] LABS: Calcium 9.1 mg/dL (8.4-10.2)
[2022-05-26] MEDS: dilTIAZem 60 MG TAB PO SCH ×3 (08:11→21:10)
[2022-05-26] MEDS: MIDODRINE 10 MG TAB PO SCH ×2 (08:11→12:22)
--- NOTE | 2022-05-26 08:22 | Progress Note ---
Assessment and Plan - Patient Problems (1) Hypertensive chronic kidney disease with stage 5 chronic kidney disease or end stage renal disease Current Visit: Yes Status: Acute Plan to address problem: Follow-up blood pressure on current medications (2) Pleural effusion, right Current Visit: Yes Status: Acute Plan to address problem: For thoracentesis today. (3) Chronic systolic heart failure Current Visit: Yes Status: Acute Plan to address problem: Fluid removal on dialysis. Continue beta-carissa and angiotensin receptor carissa (4) Acute respiratory failure with hypoxia Current Visit: Yes Status: Acute Plan to address problem: Respiratory support with BiPAP. Continue management by pulmonary. (5) Anemia in CKD (chronic kidney disease) Current Visit: Yes Status: Acute Plan to address problem: Given erythropoietin on dialysis (6) Hyperkalemia Current Visit: Yes Status: Acute Plan to address problem: Hemodialysis on a low potassium bath and then follow-up potassium (7) ESRD on dialysis Current Visit: Yes Status: Chronic Plan to address problem: Hemodialysis today Subjective Date of service: 05/26/22 Principal diagnosis: AHRF; AMS; Left SDH; ESRD on dialysis; COPD; H/O Cocaine abuse Interval history: Patient seen lying in bed. On oxygen via nonrebreather mask. Still dyspneic at rest Objective - Exam Narrative Exam: Nonrebreather mask Middle-aged male lying in bed in mild respiratory distress on oxygen via nonrebreather mask HEENT: NCAT, pink conjunctiva, anicteric sclera Neck: Supple, no venous distention CVS: S1S2 RRR with no murmur, rub or gallop Chest: Coarse breath sounds diminished breath sounds right middle and lower zones Abdomen: Protuberant, soft, nontender, no organomegaly, bowel sounds are present Extremities: No edema Genitourinary deferred Skin warm and dry Neuro: Awake, alert no focal deficits - Vital Signs Vital signs: Vital Signs - 12hr 05/25/22 05/25/22 05/25/22 20:40 21:01 21:30 Temperature Pulse Rate 151 H 144 H Pulse Rate [ From Monitor] Respiratory 21 22 Rate Blood Pressure 123/76 123/76 O2 Sat by Pulse 91 Oximetry 05/25/22 05/25/22 05/25/22 22:01 22:19 22:21 Temperature Pulse Rate 149 H 138 H Pulse Rate [ From Monitor] Respiratory 27 H 19 Rate Blood Pressure 119/70 119/70 O2 Sat by Pulse 94 94 92 Oximetry 05/25/22 05/26/22 05/26/22 23:00 00:00 00:01 Temperature 99.6 F Pulse Rate 122 H 125 H 128 H Pulse Rate [ 124 H From Monitor] Respiratory 20 24 22 Rate Blood Pressure 102/69 100/66 O2 Sat by Pulse 93 95 88 Oximetry 05/26/22 05/26/22 05/26/22 00:06 00:25 01:00 Temperature Pulse Rate 142 H 109 H Pulse Rate [ From Monitor] Respiratory 28 H 22 Rate Blood Pressure 100/66 108/68 O2 Sat by Pulse 94 Oximetry 05/26/22 05/26/22 05/26/22 02:00 03:00 04:00 Temperature 98.8 F Pulse Rate 124 H 133 H 128 H Pulse Rate [ 137 H From Monitor] Respiratory 23 27 H 21 Rate Blood Pressure 107/76 112/76 O2 Sat by Pulse 91 94 97 Oximetry 05/26/22 05/26/22 05/26/22 04:01 05:00 06:00 Temperature Pulse Rate 153 H 137 H 125 H Pulse Rate [ From Monitor] Respiratory 21 22 Rate Blood Pressure 112/76 121/80 121/80 O2 Sat by Pulse 98 98 Oximetry 05/26/22 05/26/22 05/26/22 07:00 07:13 08:11 Temperature 98.9 F Pulse Rate 146 H 140 H Pulse Rate [ From Monitor] Respiratory 22 Rate Blood Pressure 120/79 O2 Sat by Pulse 100 Oximetry - Lab 05/26/22 04:11 05/26/22 04:11 Most recent lab results ABG pH 7.494 pH Units (7.350-7.450) H 05/25/22 12:00 ABG pCO2 38.0 mm Hg 05/25/22 12:00 ABG pO2 61.1 mm Hg (80.0-90.0) L 05/25/22 12:00 ABG HCO3 28.5 mmol/L (20.0-26.0) H 05/25/22 12:00 ABG O2 Saturation 96.8 % (95.0-99.0) 05/25/22 12:00 Calcium 9.1 mg/dL (8.4-10.2) 05/26/22 04:11 Phosphorus 3.90 mg/dL (2.5-4.5) D 05/24/22 05:15 Magnesium 2.20 mg/dL (1.7-2.3) 05/24/22 05:15 Medications & Allergies - Medications Allergies/Adverse Reactions: Allergies No Known Allergies Allergy (Unverified 05/17/22 15:36) Home Medications: Home Medications Medication Instructions Recorded Confirmed Last Taken Type ALPRAZolam 0.5 mg PO BID 05/19/22 05/19/22 Unknown History Clopidogrel [Plavix] 75 mg PO QDAY 05/19/22 05/19/22 Unknown History Losartan [Cozaar] 100 mg PO QDAY 05/19/22 05/19/22 Unknown History Metoprolol [Lopressor TAB] 100 mg PO BID 05/19/22 05/19/22 Unknown History NIFEdipine [Nifedipine ER] 60 mg PO BID 05/19/22 05/19/22 Unknown History Oxycodone HCl/Acetaminophen 1 each PO Q8H PRN 05/19/22 05/19/22 Unknown History [Oxycodone-Acetaminophen 10-325] QUEtiapine [SEROquel] 50 mg PO BID 05/19/22 05/19/22 Unknown History Trelegy Ellipta 100-62.5-25 100 mcg INHALATION DAILY 05/19/22 05/19/22 Unknown History dilTIAZem [CarDIZEM] 180 mg PO BID 05/19/22 05/19/22 Unknown History Active Medications: Generic Name Dose Route Start Last Admin Trade Name Freq PRN Reason Stop Dose Admin Acetaminophen 650 mg 05/17/22 14:26 05/24/22 01:13 Acetaminophen 325 Mg Tab PO 650 mg Q4H PRN Administration Pain MILD(1-3)/Fever >100.5/DYER Albumin Human 25 gm 05/18/22 09:10 05/22/22 14:54 Albumin Human 25% (25 Gm/100 Ml) Inj IV 25 gm TOM PRN Administration Hypotension Albuterol 2.5 mg 05/18/22 06:02 Albuterol 2.5 Mg/3 Ml Nebu IH Q3HRT PRN Wheezing Alprazolam 0.5 mg 05/23/22 12:50 05/23/22 21:03 Alprazolam 0.5 Mg Tab PO 0.5 mg Q8HR PRN Administration Anxiety/agitation Aspirin 81 mg 05/21/22 10:00 05/25/22 13:11 Aspirin Ec 81 Mg Tab PO 81 mg QDAY DAQUAN Administration Dextrose 50 ml 05/18/22 15:00 Dextrose 50% In Water (25gm) 50 Ml Syringe IV Q30MIN PRN Hypoglycemia Protocol Diltiazem HCl 60 mg 05/25/22 14:00 05/26/22 08:11 Diltiazem 60 Mg Tab PO 60 mg TID DAQUAN Administration Diphenhydramine HCl 25 mg 05/20/22 13:30 05/24/22 23:31 Diphenhydramine 25 Mg Cap PO 25 mg Q6H PRN Administration Itching Docusate Sodium 100 mg 05/22/22 10:00 05/25/22 21:30 Docusate Sodium 100 Mg Cap PO 100 mg BID DAQUAN Administration Epoetin Jacinto-epbx 10,000 unit 05/18/22 09:10 05/22/22 16:56 Epoetin Jacinto-Epbx 10,000 Unit/1 Ml Vial IV 10,000 unit TOM PRN Administration hemodialysis Famotidine 20 mg 05/20/22 10:00 05/25/22 10:11 Famotidine 20 Mg Tab PO 20 mg QDAY DAQUAN Administration Sodium Chloride 100 mls @ 999 mls/hr 05/24/22 08:11 Nacl 0.9% IV TOM PRN Hypotension Losartan Potassium 50 mg 05/26/22 10:00 Losartan 50 Mg Tab PO QDAY DAQUAN Metoprolol Tartrate 100 mg 05/25/22 22:00 05/25/22 21:30 Metoprolol Tartrate 100 Mg Tab PO 100 mg BID DAQUAN Administration Midodrine 10 mg 05/25/22 13:00 05/26/22 08:11 Midodrine 10 Mg Tab PO 10 mg TID@0800,1200,1600 DAQUAN Administration Ondansetron HCl 4 mg 05/24/22 17:30 Ondansetron 4 Mg/2 Ml Inj IV Q8H PRN Nausea And Vomiting Oxycodone/Acetaminophen 1 tab 05/21/22 11:00 05/24/22 01:14 Oxycodone /Acetaminophen 5-325mg Tab PO 1 tab Q6H PRN Administration Pain, Moderate (4-6) Quetiapine Fumarate 150 mg 05/24/22 18:00 05/25/22 10:11 Quetiapine 100 Mg Tab PO 150 mg QDAY DAQUAN Administration Quetiapine Fumarate 200 mg 05/24/22 17:30 05/25/22 21:29 Quetiapine 100 Mg Tab PO 200 mg QHS DAQUAN Administration Senna/Docusate Sodium 1 tab 05/22/22 22:00 05/25/22 21:29 Sennosides/Docusate Sodium 8.6/50 Mg Tab PO 1 tab QHS DAQUAN Administration Sodium Chloride 10 ml 05/17/22 22:00 05/25/22 21:30 Sodium Chloride 0.9% 10 Ml Flush Syringe IV 10 ml BID DAQUAN Administration Sodium Chloride 10 ml 05/17/22 14:26 Sodium Chloride 0.9% 10 Ml Flush Syringe IV PRN PRN LINE FLUSH
--- NOTE | 2022-05-26 09:20 | Progress Note ---
Assessment and Plan Assessment and plan: Assessment and plan: This is a 56-year-old male with HTN, cardiomyopathy, ESRD on HD, COPD, former cocaine abuser, SDH with left shift and hemoperitoneum s/p decompressive cranio jason and paracentesis, acute hypoxic respiratory failure s/p tracheostomy with eventual decannulation who was admitted with acute hypoxic respiratory failure requiring ventilatory support. Hospital course to date: 05/18: Patient is following commands remains sedated on Precedex. Patient will receive hemodialysis today. Likely will CPAP tomorrow. NG tube placed and sta rted on tube feedings. 05/19: S/p extubation, stable on RA. Patient is s/p fall today, now c/o of Left elbow and pelvic pain. Orders placed for Lt. elbow X-ray and CT head/lumbar spine/pelvic. PRN analgesia orderd for pain control. Patient remains in Afib with RVR HR in the 120-130s, currently on PO amio. Patient's home meds list is available will resume home medications for rate control. Possible Cardiology consult if Afib RVR persists. Will keep patient in the ICU for another 24hrs post extubation, possible transfer to the floor tomorrow if patient remains stable. 05/20: Increase anxiety and agitation overnight, back on low dose precedex gtt. Lt. elbow X-ray and CT scans reviewed, fractures enthesophytes, superior and inferior pubic rami with soft tissue hematoma reported. H&H is stable, no s/s of any active bleeding. Ortho consulted for further eval and treat. Continue to trend CBC and PRN analgesia for pain control. Patient remains in Afib with RVR, on BB, BP stable. Given patient's current Afib with RVR, will continue VTE proph for now, awaiting Cardio and Ortho recommendations. Cardiology also consulted. Patient's home seroquel and antianxiety regime resumed. Wean off precedex gtt for RASS goal of 0 to -1. Plan for HD today per Nephro. PT/OT ordered. 05/21: Remains on precedex gtt due to increase agitation and combativeness overnight, symptoms resolved this am. Patient's family reported multiple psych issues since childhood. Seroquel adjusted and Mental health/psych consulted. Patient remains in Afib but in rate control this am. Cardiology recommendations appreciated, 2D echo pending. Attending also discussed with Ortho, with no indication of any surgery at this time. Ortho recommends PT/OT and weight bearing as tolerated. Full consult pending. JESSICA alston ordered. PRN analgesia for pain control. 05/22: Remains on precedex, more calm and appropriate this am. Remains on 2L NC, hypoxia noted overnight on RA, recent CXR noted with increase CHF/pulmonary edema. Patient remains in Afib but in control rate. 2D echo and cardiology recommendations noted. Patient with low BP this am, BB reduced to 50mg BID and antihypertensive therapy held today. H&H also dropped this am and worsen thrombocytopenia this am, no s/s of any active bleeding. Will hold AC for now, 1unit of PRBCs rdered and iHD today per Nephro. Patient has been refusing PT and OOB activity, still c/o of buttocks and hip pain. Continue to encourage OOB and physical therapy. PRN analgesia for pain control. Monitor and replace electrolytes as needed. 05/23: Mentation remains labile. Awake but still with periods of confusion and agitation. Off precedex gtt this am. Patient tolerated HD yesterday 3L removed, stable on 2L NC. In Afib with RVR, HR in 140s this am. D/w Cardio plan to adjust regimen therapy for rate control. Okay to transfer patient to IMCU per CCM. 05/24: Patient seen and examined, Cardiology evaluated the patient yesterday made some adjustment to BP management. Patient remains confused with AMS and cxr obtained this morning due to worsening Hypoxia shows increased opacities to the Right lung. Sent to the Pulmonary doctor for review. Will keep NPO for now and may need dobhuff if prolonged AMS. Patient underwent speech eval prior and passed 05/19. Considering the waxing and waning mentation, will consider obtaining MRI Brain when stable and also obtain Neurology consult. Continue IMCU care, may need to move back to ICU if no improvement. Discussed with Pulm and Darline. HD ordered for today 05/25: Awake, still confused with periods of agitation. MRI and Neurology consult pending. Patient remains in Afib RVR this am with low BP. S/p iHD yesterday 2L removed. still on NRB SPO2 above 95%. Hold all BB, cardizem, and all antihypertensive today. X1 of IV albumin and 500cc IVF bolus today, and midodrine was initiated. Patient is also hyperkalemic this am, plan for iHD again today. Thoracentesis pending for moderate pleural effusion. 05/26: Awake but still confused as reported on prior encounters. Remains in Afib RVR rate in 140-150's....amiodorone added by cardiology. Midodrine stopped as patient blood pressure was elevated today in 130's systolic. S/p thoracentesis, will need to wean off nrb as sats tolerate. Assessment and Plan Neuro: Acute Metabolic Encephalopathy-improved h/o SDH with left shift s/p decompressive craniotomy, h/o cocaine abuse/Spych issues S/p Fall -S/p extubation, off sedations -AAO, but with periods of disorientation, very impulsive -Remains on precedex overnight due to increase anxiety/agitation/combativeness -Patient's family reported multiple psych issues since childhood -seroquel adjusted, continue PRN xanax -Wean precededx gtt for RASS goal 0 to -1 -Mental Health/psych consulted -Reorientation as needed -Maintain sleep-wake cycle -As needed analgesia -Fall precaution -PT/OT consulted Cardiac: Atrial Fibrilation with RVR, Systolic HFrEF, Moderate Pulmonary HTN h/o cardiomyopathy, HTN -Patient remains in Afib, but in rate control this am. VSS -Cardiology consulted, appreciate recommendations -2D echo reviewed, LVEF 40-45%, moderate pulmonary HTN- RSVP 45-50 -Low BP today, all antihypertensive and antiarrhytmic therapy held -X1 dose of IV albumin and 500 cc NS, midodrine added -Blood pressure monitoring per protocol -Maintain SBP less than 160 -AC held due to anemia and thrombocytopenia Respiratory: Acute hypoxic respiratory failure, s/p tracheostomy with eventual decannulation, COPD, Moderate Right Pleural Effusion -CCM consulted, appreciate recommendations -Intubated on 05/17 at OSH; 05/19 s/p extubation -Now on NRB -Recent CXR reviewed, with moderate right pleural effusuion -Thoracentesis pending -Continue iHD per Nephro, 2L removed yesterday -Continue O2 supplementation and wean as tolerated -SPO2 monitoring for SPO2 goal aboev 92% -Of note patient self decannulated on 05/05 Superior and Inferior Pubic Rami fractures Left Enthesophytes Fracture S/p Fall -Noted from Lt. Elbow X-ray and CT scan, see report for details -Ortho consulted, appreciate recommendations -Attending also discussed with Ortho, with no indication of any surgery at this time. -Ortho recommends PT/OT and weight bearing as tolerated. -LUE sling ordered. -PT/OT consulted -Patient has been refusing PT and OOB activity -Fall precaution -Continue to encourage OOB and physical therapy -PRN Analgesia for pain control GI: Moderate protein calorie malnutrition -S/p PEG tube placement, however now off -Patient removed Richter catheter that was in the PEG-tube stoma, dressing present -Patient passed bedside swallow, renal diet ordered -Speech also following -S/p paracentesis at [facility] on 05/06 with removal of 2.7 L : ESRD on HD, hyperkalemia -Nephrology consulted, appreciate recommendations -Continue HD per Nephro -Monitor intake and output -Renally dose medications -Avoid nephrotoxic medications -Monitor and replace electrolytes as needed -Trend BMP Heme: Anemia of Chronic Disease, Thrombocytopenia -Probably chronic 2/2 of ESRD -s/p 1unit of PRBCs -H&H stable and plt improved -No s/s of any active bleeding -Continue Epogen with iHD per Nephro -AC held due to anemia and thrombocytopenia -Transfuse for hgb less than 7 ID: Sepsis (POA) -Leukopenia, CXR showed left-sided effusion with associated opacity and mild right basilar atelectasis -COVID-19 PCR negative, MRSA PCR negative -s/p Antibiotic therapy with cefepime -f/u blood culture -Monitor WBC and temperature curve GI/DVT Prophylaxis -PPI- pepcid -SCDs to bilateral lower extremities while in bed The high probability of a clinically significant, sudden or life threatening deterioration of the [multi] system(s) required my full and direct attention, intervention and personal management. The aggregate critical care time was [60] minutes. This time is in addition to time spent performing reported procedures but includes the following: [x] Data Review and interpretation [x] Patient assessment and monitoring of vital signs [x] Documentation [x] Medication orders and management Disposition Plan: IMCU Total Time Spent with Patient (Minutes): 60 History Interval history: Seen and evaluated at bedside. Mostly resting peacefully at bedside, heart rate in 140s to 150s in atrial fibrillation with RVR. Obtaining bedside thoracentesis with radiology today. Hospitalist Physical - Physical exam Narrative exam: - Physical exam Narrative exam: General appearance: Present: no acute distress, cachectic - EENT Eyes: Present: PERRL ENT: hearing intact - Neck Neck: Present: normal ROM - Respiratory Respiratory effort: normal Respiratory: bilateral: diminished - Cardiovascular Rhythm: irregularly irregular Heart Sounds: Present: S1 & S2 - Extremities Extremities: no ischemia, pulses intact, pulses symmetrical Peripheral Pulses: within normal limits - Abdominal General gastrointestinal: soft, non-distended, normal bowel sounds - Integumentary Integumentary: Present: warm, dry - Psychiatric Psychiatric: other (Confused, Impulsive at time) - Neurologic Neurologic: moves all extremities, other (Awake but confused, with periods of agitation) - Allied Health Allied health notes reviewed: nursing, case management - Constitutional Vitals: Temp Pulse Resp BP Pulse Ox 98.9 F 140 H 25 H 110/65 98 05/26/22 08:00 05/26/22 08:11 05/26/22 08:00 05/26/22 08:00 05/26/22 08:00 General appearance: Present: mild distress, cachectic Results - Labs CBC & Chem 7: 05/26/22 04:11 05/26/22 04:11 Labs: Laboratory Last Values WBC 7.4 K/mm3 (4.5-11.0) 05/26/22 04:11 RBC 2.86 M/mm3 (3.65-5.03) L 05/26/22 04:11 Hgb 8.2 gm/dl (11.8-15.2) L 05/26/22 04:11 Hct 25.7 % (35.5-45.6) L 05/26/22 04:11 MCV 90 fl (84-94) 05/26/22 04:11 MCH 29 pg (28-32) 05/26/22 04:11 MCHC 32 % (32-34) 05/26/22 04:11 RDW 19.8 % (13.2-15.2) H 05/26/22 04:11 Plt Count 178 K/mm3 (140-440) 05/26/22 04:11 Lymph % (Auto) 10.8 % (13.4-35.0) L 05/25/22 12:57 Gilliam % (Auto) 13.1 % (0.0-7.3) H 05/25/22 12:57 Eos % (Auto) 1.5 % (0.0-4.3) 05/25/22 12:57 Baso % (Auto) 0.1 % (0.0-1.8) 05/25/22 12:57 Lymph # (Auto) 0.6 K/mm3 (1.2-5.4) L 05/25/22 12:57 Gilliam # (Auto) 0.8 K/mm3 (0.0-0.8) 05/25/22 12:57 Eos # (Auto) 0.1 K/mm3 (0.0-0.4) 05/25/22 12:57 Baso # (Auto) 0.0 K/mm3 (0.0-0.1) 05/25/22 12:57 Seg Neutrophils % 74.5 % (40.0-70.0) H 05/25/22 12:57 Seg Neutrophils # 4.3 K/mm3 (1.8-7.7) 05/25/22 12:57 ABG pH 7.494 pH Units (7.350-7.450) H 05/25/22 12:00 ABG pCO2 38.0 mm Hg 05/25/22 12:00 ABG pO2 61.1 mm Hg (80.0-90.0) L 05/25/22 12:00 ABG HCO3 28.5 mmol/L (20.0-26.0) H 05/25/22 12:00 ABG O2 Saturation 96.8 % (95.0-99.0) 05/25/22 12:00 ABG O2 Content 9.1 (0.0-44) 05/25/22 12:00 ABG Base Excess 4.9 mmol/L (-2.0-3.0) H 05/25/22 12:00 ABG Hemoglobin 6.8 gm/dl (14.0-18.0) L 05/25/22 12:00 ABG Carboxyhemoglobin 1.8 % (0.0-5.0) 05/25/22 12:00 ABG Methemoglobin 0.5 % (0.0-1.5) 05/25/22 12:00 Oxyhemoglobin 94.5 % (95.0-99.0) L 05/25/22 12:00 FiO2 100 % 05/25/22 12:00 Sodium 138 mmol/L (137-145) 05/26/22 04:11 Potassium 5.3 mmol/L (3.6-5.0) H 05/26/22 04:11 Chloride 97.8 mmol/L (98-107) L 05/26/22 04:11 Carbon Dioxide 25 mmol/L (22-30) 05/26/22 04:11 Anion Gap 21 mmol/L 05/26/22 04:11 BUN 46 mg/dL (9-20) H 05/26/22 04:11 Creatinine 5.7 mg/dL (0.8-1.3) H 05/26/22 04:11 Estimated GFR 10 ml/min 05/26/22 04:11 BUN/Creatinine Ratio 8 % 05/26/22 04:11 Glucose 81 mg/dL (75-100) 05/26/22 04:11 POC Glucose 126 mg/dL (70-105) H 05/22/22 21:28 Lactic Acid 1.00 mmol/L (0.7-2.0) 05/25/22 13:20 Calcium 9.1 mg/dL (8.4-10.2) 05/26/22 04:11 Phosphorus 3.90 mg/dL (2.5-4.5) D 05/24/22 05:15 Magnesium 2.20 mg/dL (1.7-2.3) 05/24/22 05:15 Total Bilirubin 0.40 mg/dL (0.1-1.2) 05/17/22 14:28 AST 7 units/L (5-40) 05/17/22 14:28 ALT < 5 units/L (7-56) L 05/17/22 14:28 Alkaline Phosphatase 78 units/L (35-129) 05/17/22 14:28 Ammonia 24.0 umol/L (25-60) L 05/24/22 08:15 Lactate Dehydrogenase 149 units/L (91-180) 05/25/22 12:57 Total Protein 6.1 g/dL (6.3-8.2) L 05/17/22 14:28 Albumin 2.9 g/dL (3.9-5) L 05/17/22 14:28 Albumin/Globulin Ratio 0.9 % 05/17/22 14:28 Nasal Screen MRSA (PCR) Negative (Negative) 05/18/22 08:30 Coronavirus (PCR) Negative (Negative) 05/24/22 11:05 Hepatitis A IgM Ab Non-reactive (NonReactive) 05/18/22 18:10 Hep Bs Antigen Non-reactive (Negative) 05/18/22 18:10 Hep B Core IgM Ab Non-reactive (NonReactive) 05/18/22 18:10 Hepatitis C Antibody Reactive (NonReactive) A 05/18/22 18:10 Blood Type A NEGATIVE 05/22/22 06:00 Antibody Screen Negative 05/22/22 06:00 Crossmatch See Detail 05/22/22 06:00 Microbiology: Microbiology 05/24/22 10:45 Peripheral/Venous Blood Culture - Preliminary NO GROWTH AFTER 24 HOURS 05/24/22 10:15 Peripheral/Venous Blood Culture - Preliminary NO GROWTH AFTER 24 HOURS Active Medications - Current Medications Current Medications: Generic Name Dose Route Start Last Admin Trade Name Freq PRN Reason Stop Dose Admin Acetaminophen 650 mg 05/17/22 14:26 05/24/22 01:13 Acetaminophen 325 Mg Tab PO 650 mg Q4H PRN Administration Pain MILD(1-3)/Fever >100.5/DYER Albumin Human 25 gm 05/18/22 09:10 05/22/22 14:54 Albumin Human 25% (25 Gm/100 Ml) Inj IV 25 gm TOM PRN Administration Hypotension Albuterol 2.5 mg 05/18/22 06:02 Albuterol 2.5 Mg/3 Ml Nebu IH Q3HRT PRN Wheezing Alprazolam 0.5 mg 05/23/22 12:50 05/23/22 21:03 Alprazolam 0.5 Mg Tab PO 0.5 mg Q8HR PRN Administration Anxiety/agitation Aspirin 81 mg 05/21/22 10:00 05/25/22 13:11 Aspirin Ec 81 Mg Tab PO 81 mg QDAY DAQUAN Administration Dextrose 50 ml 05/18/22 15:00 Dextrose 50% In Water (25gm) 50 Ml Syringe IV Q30MIN PRN Hypoglycemia Protocol Diltiazem HCl 60 mg 05/25/22 14:00 05/26/22 08:11 Diltiazem 60 Mg Tab PO 60 mg TID DAQUAN Administration Diphenhydramine HCl 25 mg 05/20/22 13:30 05/24/22 23:31 Diphenhydramine 25 Mg Cap PO 25 mg Q6H PRN Administration Itching Docusate Sodium 100 mg 05/22/22 10:00 05/25/22 21:30 Docusate Sodium 100 Mg Cap PO 100 mg BID DAQUAN Administration Epoetin Jacinto-epbx 10,000 unit 05/18/22 09:10 05/22/22 16:56 Epoetin Jacinto-Epbx 10,000 Unit/1 Ml Vial IV 10,000 unit TOM PRN Administration hemodialysis Famotidine 20 mg 05/20/22 10:00 05/25/22 10:11 Famotidine 20 Mg Tab PO 20 mg QDAY DAQUAN Administration Sodium Chloride 100 mls @ 999 mls/hr 05/24/22 08:11 Nacl 0.9% IV TOM PRN Hypotension Losartan Potassium 50 mg 05/26/22 10:00 Losartan 50 Mg Tab PO QDAY DAQUAN Metoprolol Tartrate 100 mg 05/25/22 22:00 05/25/22 21:30 Metoprolol Tartrate 100 Mg Tab PO 100 mg BID DAQUAN Administration Midodrine 10 mg 05/25/22 13:00 05/26/22 08:11 Midodrine 10 Mg Tab PO 10 mg TID@0800,1200,1600 DAQUAN Administration Ondansetron HCl 4 mg 05/24/22 17:30 Ondansetron 4 Mg/2 Ml Inj IV Q8H PRN Nausea And Vomiting Oxycodone/Acetaminophen 1 tab 05/21/22 11:00 05/24/22 01:14 Oxycodone /Acetaminophen 5-325mg Tab PO 1 tab Q6H PRN Administration Pain, Moderate (4-6) Quetiapine Fumarate 150 mg 05/24/22 18:00 05/25/22 10:11 Quetiapine 100 Mg Tab PO 150 mg QDAY DAQUAN Administration Quetiapine Fumarate 200 mg 05/24/22 17:30 05/25/22 21:29 Quetiapine 100 Mg Tab PO 200 mg QHS DAQUAN Administration Senna/Docusate Sodium 1 tab 05/22/22 22:00 05/25/22 21:29 Sennosides/Docusate Sodium 8.6/50 Mg Tab PO 1 tab QHS DAQUAN Administration Sodium Chloride 10 ml 05/17/22 22:00 05/25/22 21:30 Sodium Chloride 0.9% 10 Ml Flush Syringe IV 10 ml BID DAQUAN Administration Sodium Chloride 10 ml 05/17/22 14:26 Sodium Chloride 0.9% 10 Ml Flush Syringe IV PRN PRN LINE FLUSH Nutrition/Malnutrition Assess - Dietary Evaluation Nutrition/Malnutrition Findings: Nutrition Notes Start: 05/18/22 14:16 Freq: Status: Active Protocol: Document 05/20/22 12:37 LUCERO (Rec: 05/20/22 13:15 LUCERO [id number]) Nutrition Notes Initial or Follow up Reassessment Current Diagnosis CKD (stage V CKD),COPD, Hypertension,Malnutrition Other Pertinent Diagnosis Metabolic Encephalopathy, L- Elbow+Pelvic Fractures s/p Fall, ESRD+HD, Atria Current Diet Renal Diet (since D 05/19), D Suppl (since L 05/20). Labs/Tests 05/20: K 5.4, Cl 96.5, BUN 53, Crea 6.7, Glu 115, Ca 8.1, Phos 7.9. Pertinent Medications 05/20: Nutritionally unremarkable. 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 No body weight change reported in 2 days. Weight Status Appropriate Subjective/Other Information RD consult for routine F/U on TF tolerance/continuation assessment. TF was discontinued and Pt advanced to PO diet, No reports available on Pt's PO intake of meals at the time, will assess at F/U. MD prescribed dietary supplements, I will keep the prescription to compensate for possible poor or insufficient PO intake of meals during LOS . [employer] OPERATIONS SPECIALIST note on 05/20/22 11:00: Received a repeat order to assess swallowing function. Spoke with the patient's nurse who was aware of the assessment which was conducted the previous day. Patient is safe for a regular diet. Will discharge the order. - END OF NOTE. Pt is on Room Air, O2 saturation @ 100%, according to Physical Assessment History notes. Pt was extubated on 05/19, well tolerated room air directly, according to Progress notes. Pt experienced a fall on 05/19 with subsequent L-elbow and pelvic fractures, according to Progress notes. Pt presents R-hand abrasions and neck surgical wound as signs of concern for skin risk at the time, according to Physical Assessment History notes. Percent of energy/protein needs met: Prescribed Renal Diet provides for energy/protein needs (2, 072 Kcal/77 g) during LOS; additionally, Dietary Supplements will compensate for possible poor or insufficient PO intake of meals with 850 Kcal and 38 g of protein. Burn Absent Trauma Present GI Symptoms None Food Allergy No Skin Integrity/Comment R-hand abrasions+neck surgical woun Minimum of two criteria No Fluid Accumulation N/A Reduced Brakes Inspector Strength N/A (non-severe) Protein-Calorie Malnutrition N\A #1 Nutrition Diagnosis Swallowing difficulty Comments: TF was discontinued and Pt advanced to PO diet on 05/19. Diagnosis Progress(for reassessment Resolved documentation) Is patient on ventilator? No Is Patient Ambulatory and/or Out of Bed Yes REE-([place]-St. Jeor-ambulatory/OOB) [ [id number] [id number]] Calculation Used for Recommendations [place]-St Jeor Additional Notes Protein: >1.2 g/Kg ABW; >92 g/ day. Fluids: 1 ml/Kcal, or as per MD. Nutrition Intervention Change Diet Order: Continue Renal Diet as tolerated. Nutrition Support: Discontinued. Add Supplement/Snack (indicate name/kcal Continue 8 fl oz Nepro w/ /protein ) CARBSTEADY; BID. Provides kCal: 850 Provides Protein (gm) 38 Goal #1 Compensate, through dietary supplementation, for possible poor or insufficient PO intake of meals during LOS. Goal #2 Adjust the dietary intervention to better serve Pt's needs and clinical conditions during LOS. Follow-Up By: 05/27/22 Additional Comments Continue monitoring food tolerance, %PO intake of meals , dietary supplements, and BM.
--- NOTE | 2022-05-26 09:22 | Electrocardiograph Report ---
[facility] Test Date: 2022-05-25 Test Time: 06:37:28 Pat Name: ADAM JOVEL Department: Room: A265 1 Gender: M Wheel Buffer: WILLA : 1965 Requested By: ARIANA HARDY Order Number: [id number] Reading MD: Rm Garcia Measurements Intervals [place] Rate: 114 P: [place]: QRS: 41 QRSD: 106 T: 143 QT: 369 QTc: 509 Interpretive Statements Atrial fibrillation Probable LVH with secondary repol abnrm nonspecific st-t Compared to ECG 05/21/2022 09:48:08 Prolonged QT interval now present ST (T wave) deviation no longer present Possible ischemia no longer present Electronically Signed On 05-26-2022 9:21:50 EDT by Rm Garcia
[2022-05-26] MEDS ORDERED: LIPASE 10,500/PROTEASE 25,000/AMYLASE 43,750 (UNITS) DR CAP FEEDTUBE PRN (11:06)
[2022-05-26] MEDS ORDERED: SODIUM BICARBONATE 325 MG TAB FEEDTUBE PRN (11:06)
[2022-05-26] MEDS ORDERED: SIMPLE SYRUP 15 ML FEEDTUBE PRN ×2 (11:06)
[2022-05-26] MEDS: FAMOTIDINE 20 MG TAB PO SCH (11:30)
[2022-05-26] MEDS: QUEtiapine 100 MG TAB PO SCH ×2 (11:31→21:09)
[2022-05-26] MEDS: oxyCODONE /ACETAMINOPHEN 5-325MG TAB PO PRN (11:31)
[2022-05-26] MEDS: METOPROLOL TARTRATE 100 MG TAB PO SCH ×2 (11:31→21:09)
[2022-05-26] MEDS: DOCUSATE SODIUM 100 MG CAP PO SCH ×2 (11:32→21:09)
--- NOTE | 2022-05-26 12:01 | Procedure Note ---
Date of procedure: 05/26/22 Pre-op diagnosis: right pleural effusioin Post-op diagnosis: same Procedure: US thoracentesis Findings: large right pleural effusion Anesthesia: local Surgeon: EDNA CASSIDY Estimated blood loss: none Pathology: list (120cc) Specimen disposition: to lab Condition: stable Disposition: floor
[2022-05-26] MEDS: ASPIRIN EC 81 MG TAB PO SCH (12:20)
[2022-05-26] MEDS: LOSARTAN 50 MG TAB PO SCH (12:20)
--- NOTE | 2022-05-26 12:45 | Progress Note ---
Assessment and Plan Acute hypoxemic respiratory failure on mechanical ventilatory support Acute toxic metabolic encephalopathy Left subdural hematoma s/p evacuation End-stage renal disease on dialysis Right hip fracture Hypertension COPD CMOP H/O Cocaine abuse Oropharyngeal dysphagia Hyponatremia Anemia that is normocytic likely of chronic disease - wean of NRB now post thoracentesis - to receive Amiodarone bolus then begin oral dosing - follow pleural fluid studies - continue Seroquel at current dose - continue care as below otherwise; - continue HD/UF per nephrology prescription for toxin and volume clearance - conservative management for hip fracture - orthopedic consult placed earlier - pulmonary edema pattern should improve with extra UF sessions as tolerated - continue local wound care to trach stoma - continue to wean oxygen for O2 sat's > 90% - continue bronchodilators with pulmonary hygiene per RT -aspiration precautions, HOB >40 - continue to wean per pulmonary driven protocols - prn analgesia per pain score - follow clinically re: fever curves / trend WBC - Avoid delirium (no benzodiazepines if they can be avoided) - Maintain sleep-wake cycle - enteral nutrition at goal rate as tolerated - continue accuchecks with glycemic control per SSI (While critically ill target blood glucose of 140-180 mg/dL; avoid hypoglycemia) - VTE prophylaxis with Heparin - stress ulcer prophylaxis with Pantoprazole - mobility protocols for pressure ulcer prophylaxis - fall precautions - wound care management per RN / WCT - increase ambulation; PT/OT as tolerated - Supportive transfusions to keep Hb>7g/dL - CXR's and ABG's prn - continue to monitor neurologic function - continue chronic home medications as indicated - continue all supportive care ........ re-evaluate in am & prn .... Re-evaluate in am & prn CONDITION: CRITICAL PROGNOSIS: GUARDED CODE STATUS: FULL CODE The high probability of a clinically significant, sudden or life-threatening deterioration of the [respiratory, cardiovascular, renal & neurologic] system(s) required my full and direct attention, intervention and personal management. The aggregate critical care time was [34] minutes without overlap. Time includes spent on; [x] Data Review and interpretation [x] Patient assessment and monitoring of vital signs [x] Documentation [x] Medication orders and management Subjective Date of service: 05/26/22 Principal diagnosis: AHRF; AMS; Left SDH; ESRD on dialysis; COPD; H/O Cocaine abuse Interval history: CC:Patient is being seen today for Acute hypoxemic respiratory failure; AMS; Left SDH; ESRD on dialysis; COPD; H/O Cocaine abuse Subjective: Seen and examined at bedside; 24hr events reviewed; nursing and respiratory care staff consulted; no adverse overnight events reported to me; resting peacefully in bed; remains on 100% NRB; in A-fib RVR with rate at 140 bpm; less agitated today though; now s/p thoracentesis and 2 liers pulled; no po st procedure pneumothorax; denies N/V/F/C Objective Vital Signs - 12hr 05/26/22 05/26/22 05/26/22 01:00 02:00 03:00 Temperature Pulse Rate 109 H 124 H 133 H Pulse Rate [ From Monitor] Respiratory 22 23 27 H Rate Blood Pressure 108/68 107/76 O2 Sat by Pulse 94 91 94 Oximetry 05/26/22 05/26/22 05/26/22 04:00 04:01 05:00 Temperature 98.8 F Pulse Rate 128 H 153 H 137 H Pulse Rate [ 137 H From Monitor] Respiratory 21 21 Rate Blood Pressure 112/76 112/76 121/80 O2 Sat by Pulse 97 98 Oximetry 05/26/22 05/26/22 05/26/22 06:00 07:00 07:13 Temperature 98.9 F Pulse Rate 125 H 146 H Pulse Rate [ From Monitor] Respiratory 22 22 Rate Blood Pressure 121/80 120/79 O2 Sat by Pulse 98 100 Oximetry 05/26/22 05/26/22 05/26/22 08:00 08:11 09:00 Temperature 98.9 F Pulse Rate 145 H 140 H 147 H Pulse Rate [ 146 H From Monitor] Respiratory 25 H 21 Rate Blood Pressure 110/65 110/65 O2 Sat by Pulse 98 94 Oximetry 05/26/22 05/26/22 05/26/22 09:19 10:00 11:00 Temperature Pulse Rate 136 H 138 H Pulse Rate [ From Monitor] Respiratory 23 25 H Rate Blood Pressure 121/78 125/89 O2 Sat by Pulse 94 93 91 Oximetry 05/26/22 05/26/22 05/26/22 11:31 11:49 12:00 Temperature 98.4 F 98.4 F Pulse Rate 111 H 108 H Pulse Rate [ 146 H From Monitor] Respiratory 28 H Rate Blood Pressure 124/86 O2 Sat by Pulse 94 Oximetry Constitutional: no acute distress, other (middle aged male with mildly increased respiratory effort at rest) Eyes: non-icteric ENT: oropharynx moist Neck: supple, no JVD Effort: mildly labored Ascultation: Bilateral: diminished breath sounds, rhonchi (scant) Percussion: Bilateral: not dull Cardiovascular: irregular rhythm, other (A-fib) Gastrointestinal: normoactive bowel sounds, soft, non-tender, non-distended (protuberant) Integumentary: normal, other (healed scalp craniotomy incision line) Extremities: no cyanosis, no edema, pink and warm, pulses normal, no ischemia or petechiae Neurologic: non-focal exam (grossly), pupils equal and round, CN II-XII normal Psychiatric: mood appropriate, affect normal CBC and BMP: 05/26/22 04:11 05/26/22 04:11 ABG, PT/INR, D-dimer: ABG ABG pH 7.494 pH Units (7.350-7.450) H 05/25/22 12:00 ABG pCO2 38.0 mm Hg 05/25/22 12:00 ABG pO2 61.1 mm Hg (80.0-90.0) L 05/25/22 12:00 ABG O2 Saturation 96.8 % (95.0-99.0) 05/25/22 12:00 Abnormal lab findings: Abnormal Labs 05/17/22 05/17/22 05/17/22 14:26 14:28 15:10 WBC 4.0 L RBC 2.86 L Hgb 8.4 L Hct 24.9 L RDW 20.9 H Plt Count Lymph % (Auto) Grady % (Auto) 14.7 H Lymph # (Auto) 0.6 L Grady # (Auto) Seg Neutrophils % ABG pH ABG pO2 191.6 H ABG HCO3 ABG O2 Saturation 99.2 H ABG Base Excess ABG Hemoglobin 9.0 L Oxyhemoglobin Sodium 126 L Potassium 6.0 H Chloride 91.0 L BUN 42 H Creatinine 6.9 H Glucose POC Glucose Calcium Phosphorus Magnesium ALT < 5 L Ammonia Total Protein 6.1 L Albumin 2.9 L Hepatitis C Antibody Crossmatch 05/18/22 05/18/22 05/18/22 04:13 04:20 06:00 WBC 3.0 L RBC 2.87 L Hgb 8.1 L Hct 25.3 L RDW 20.7 H Plt Count 127 L Lymph % (Auto) Grady % (Auto) 15.1 H Lymph # (Auto) 0.5 L Grady # (Auto) Seg Neutrophils % ABG pH ABG pO2 158.7 H ABG HCO3 ABG O2 Saturation ABG Base Excess ABG Hemoglobin 9.4 L Oxyhemoglobin Sodium 128 L Potassium 6.8 H* Chloride 93.7 L BUN 48 H Creatinine 6.8 H Glucose POC Glucose Calcium Phosphorus Magnesium ALT Ammonia Total Protein Albumin Hepatitis C Antibody Crossmatch 05/18/22 05/18/22 05/18/22 17:49 18:10 23:15 WBC RBC Hgb Hct RDW Plt Count Lymph % (Auto) Grady % (Auto) Lymph # (Auto) Grady # (Auto) Seg Neutrophils % ABG pH ABG pO2 ABG HCO3 ABG O2 Saturation ABG Base Excess ABG Hemoglobin Oxyhemoglobin Sodium Potassium Chloride BUN Creatinine Glucose POC Glucose 144 H 145 H Calcium Phosphorus Magnesium ALT Ammonia Total Protein Albumin Hepatitis C Antibody Reactive A Crossmatch 05/19/22 05/19/22 05/19/22 03:18 03:18 05:21 WBC 2.6 L RBC 2.94 L Hgb 8.5 L Hct 26.2 L RDW 20.3 H Plt Count 137 L Lymph % (Auto) Grady % (Auto) Lymph # (Auto) Grady # (Auto) Seg Neutrophils % ABG pH ABG pO2 ABG HCO3 ABG O2 Saturation ABG Base Excess ABG Hemoglobin Oxyhemoglobin Sodium Potassium 5.1 H D Chloride BUN 34 H Creatinine 4.9 H Glucose 130 H POC Glucose 143 H Calcium 8.3 L Phosphorus Magnesium ALT Ammonia Total Protein Albumin Hepatitis C Antibody Crossmatch 05/19/22 05/19/22 05/20/22 11:23 17:48 00:01 WBC RBC Hgb Hct RDW Plt Count Lymph % (Auto) Grady % (Auto) Lymph # (Auto) Grady # (Auto) Seg Neutrophils % ABG pH ABG pO2 ABG HCO3 ABG O2 Saturation ABG Base Excess ABG Hemoglobin Oxyhemoglobin Sodium Potassium Chloride BUN Creatinine Glucose POC Glucose 127 H 156 H 142 H Calcium Phosphorus Magnesium ALT Ammonia Total Protein Albumin Hepatitis C Antibody Crossmatch 05/20/22 05/20/22 05/20/22 04:31 04:31 17:44 WBC RBC 2.72 L Hgb 7.8 L Hct 24.1 L RDW 20.9 H Plt Count Lymph % (Auto) Grady % (Auto) Lymph # (Auto) Grady # (Auto) Seg Neutrophils % ABG pH ABG pO2 ABG HCO3 ABG O2 Saturation ABG Base Excess ABG Hemoglobin Oxyhemoglobin Sodium Potassium 5.4 H Chloride 96.5 L BUN 53 H Creatinine 6.7 H Glucose 115 H POC Glucose 132 H Calcium 8.1 L Phosphorus 7.90 H Magnesium ALT Ammonia Total Protein Albumin Hepatitis C Antibody Crossmatch 05/21/22 05/21/22 05/21/22 04:13 07:50 11:43 WBC RBC Hgb Hct RDW Plt Count Lymph % (Auto) Grady % (Auto) Lymph # (Auto) Grady # (Auto) Seg Neutrophils % ABG pH ABG pO2 ABG HCO3 ABG O2 Saturation ABG Base Excess ABG Hemoglobin Oxyhemoglobin Sodium Potassium Chloride 97.7 L BUN 37 H Creatinine 4.9 H Glucose POC Glucose 111 H 109 H Calcium 8.0 L Phosphorus Magnesium ALT Ammonia Total Protein Albumin Hepatitis C Antibody Crossmatch 05/21/22 05/21/22 05/22/22 17:00 20:52 03:59 WBC RBC 2.31 L Hgb 6.8 L Hct 20.3 L RDW 20.4 H Plt Count 103 L Lymph % (Auto) Grady % (Auto) Lymph # (Auto) Grady # (Auto) Seg Neutrophils % ABG pH ABG pO2 ABG HCO3 ABG O2 Saturation ABG Base Excess ABG Hemoglobin Oxyhemoglobin Sodium Potassium Chloride BUN Creatinine Glucose POC Glucose 116 H 121 H Calcium Phosphorus Magnesium ALT Ammonia Total Protein Albumin Hepatitis C Antibody Crossmatch 05/22/22 05/22/22 05/22/22 03:59 06:00 07:33 WBC RBC Hgb Hct RDW Plt Count Lymph % (Auto) Grady % (Auto) Lymph # (Auto) Grady # (Auto) Seg Neutrophils % ABG pH ABG pO2 ABG HCO3 ABG O2 Saturation ABG Base Excess ABG Hemoglobin Oxyhemoglobin Sodium 134 L Potassium Chloride 94.7 L BUN 44 H Creatinine 5.7 H Glucose POC Glucose 135 H Calcium 7.9 L Phosphorus Magnesium 1.60 L ALT Ammonia Total Protein Albumin Hepatitis C Antibody Crossmatch See Detail 05/22/22 05/22/22 05/22/22 16:55 21:28 22:53 WBC RBC 2.70 L Hgb 7.9 L Hct 24.1 L RDW 20.3 H Plt Count 110 L Lymph % (Auto) Grady % (Auto) Lymph # (Auto) Grady # (Auto) Seg Neutrophils % ABG pH ABG pO2 ABG HCO3 ABG O2 Saturation ABG Base Excess ABG Hemoglobin Oxyhemoglobin Sodium Potassium Chloride BUN Creatinine Glucose POC Glucose 146 H 126 H Calcium Phosphorus Magnesium ALT Ammonia Total Protein Albumin Hepatitis C Antibody Crossmatch 05/22/22 05/22/22 05/23/22 22:53 22:53 04:00 WBC RBC 2.84 L Hgb 8.4 L Hct 25.5 L RDW 20.5 H Plt Count 108 L Lymph % (Auto) Grady % (Auto) Lymph # (Auto) Grady # (Auto) Seg Neutrophils % ABG pH ABG pO2 ABG HCO3 ABG O2 Saturation ABG Base Excess ABG Hemoglobin Oxyhemoglobin Sodium 136 L Potassium Chloride 97.6 L BUN 30 H Creatinine 3.9 H Glucose 132 H POC Glucose Calcium Phosphorus 2.20 L D Magnesium ALT Ammonia Total Protein Albumin Hepatitis C Antibody Crossmatch 05/23/22 05/24/22 05/24/22 04:17 05:15 08:15 WBC RBC 2.79 L Hgb 8.0 L Hct 24.6 L RDW 20.2 H Plt Count 133 L Lymph % (Auto) 6.0 L Grady % (Auto) 9.7 H Lymph # (Auto) 0.5 L Grady # (Auto) 0.9 H Seg Neutrophils % 82.8 H ABG pH ABG pO2 ABG HCO3 ABG O2 Saturation ABG Base Excess ABG Hemoglobin Oxyhemoglobin Sodium 134 L Potassium 5.8 H D Chloride 96.4 L BUN 32 H 48 H Creatinine 4.1 H 5.4 H Glucose 107 H POC Glucose Calcium Phosphorus 2.30 L Magnesium ALT Ammonia Total Protein Albumin Hepatitis C Antibody Crossmatch 05/24/22 05/25/22 05/25/22 08:15 12:00 12:57 WBC RBC 2.33 L Hgb 7.0 L Hct 22.0 L RDW 20.5 H Plt Count 134 L Lymph % (Auto) 10.8 L Grady % (Auto) 13.1 H Lymph # (Auto) 0.6 L Grady # (Auto) Seg Neutrophils % 74.5 H ABG pH 7.494 H ABG pO2 61.1 L ABG HCO3 28.5 H ABG O2 Saturation ABG Base Excess 4.9 H ABG Hemoglobin 6.8 L Oxyhemoglobin 94.5 L Sodium Potassium Chloride BUN Creatinine Glucose POC Glucose Calcium Phosphorus Magnesium ALT Ammonia 24.0 L Total Protein Albumin Hepatitis C Antibody Crossmatch 05/25/22 05/26/22 05/26/22 12:57 04:11 04:11 WBC RBC 2.86 L Hgb 8.2 L Hct 25.7 L RDW 19.8 H Plt Count Lymph % (Auto) Grady % (Auto) Lymph # (Auto) Grady # (Auto) Seg Neutrophils % ABG pH ABG pO2 ABG HCO3 ABG O2 Saturation ABG Base Excess ABG Hemoglobin Oxyhemoglobin Sodium 136 L Potassium 5.1 H 5.3 H Chloride 97.0 L 97.8 L BUN 40 H 46 H Creatinine 5.4 H 5.7 H Glucose POC Glucose Calcium Phosphorus Magnesium ALT Ammonia Total Protein Albumin Hepatitis C Antibody Crossmatch Chest x-ray: image reviewed (right pleural effusion resolved) Allied health notes reviewed: nursing
[2022-05-26] MEDS ORDERED: AMIODARONE 150 MG/3 ML INJ IV ONE (13:00)
--- NOTE | 2022-05-26 13:04 | Progress Note ---
Assessment and Plan - Patient Problems (1) Rapid atrial fibrillation Current Visit: Yes Status: Acute Plan to address problem: Patient continues to have high atrial fibrillation rates, 120s to 140s despite high-dose diltiazem and metoprolol. We will add amiodarone for atrial fibrillation rate control. Subjective Date of service: 05/26/22 Principal diagnosis: AHRF; AMS; Left SDH; ESRD on dialysis; COPD; H/O Cocaine abuse Interval history: Patient is mildly lethargic, but breathing comfortably on room air, no acute distress. He is status post thoracentesis done earlier today. Over the past several days, it is reported that he has had a difficult rate control of his atrial fibrillation, despite high doses of metoprolol and diltiazem. Currently his atrial fibrillation rate is in the 130s. Objective Vital Signs Temp Pulse Pulse Resp BP Pulse Ox 05/26/22 12:00 98.4 F 108 H 146 H 28 H 124/86 94 05/26/22 11:49 98.4 F 05/26/22 11:31 111 H 05/26/22 11:00 138 H 25 H 125/89 91 05/26/22 10:00 136 H 23 121/78 93 05/26/22 09:19 94 05/26/22 09:00 147 H 21 110/65 94 05/26/22 08:11 140 H 05/26/22 08:00 98.9 F 145 H 146 H 25 H 110/65 98 05/26/22 07:13 98.9 F 05/26/22 07:00 146 H 22 120/79 100 05/26/22 06:00 125 H 22 121/80 98 05/26/22 05:00 137 H 21 121/80 98 05/26/22 04:01 153 H 112/76 05/26/22 04:00 98.8 F 128 H 137 H 21 112/76 97 05/26/22 03:00 133 H 27 H 94 05/26/22 02:00 124 H 23 107/76 91 05/26/22 01:00 109 H 22 108/68 94 05/26/22 00:25 142 H 100/66 05/26/22 00:06 28 H 05/26/22 00:01 128 H 22 100/66 88 05/26/22 00:00 99.6 F 125 H 124 H 24 95 05/25/22 23:00 122 H 20 102/69 93 05/25/22 22:21 138 H 19 119/70 92 05/25/22 22:19 94 05/25/22 22:01 149 H 27 H 119/70 94 05/25/22 21:30 144 H 123/76 05/25/22 21:01 151 H 22 123/76 91 05/25/22 20:40 21 05/25/22 20:08 133 H 118/65 05/25/22 20:01 136 H 25 H 98/73 94 05/25/22 20:00 99.5 F 137 H 130 H 23 94 05/25/22 19:01 135 H 21 108/69 91 05/25/22 18:31 142 H 19 98/72 94 05/25/22 18:21 127 H 22 98/72 93 05/25/22 18:11 125 H 23 98/72 94 05/25/22 18:00 129 H 24 98/72 05/25/22 17:51 133 H 21 95/65 94 05/25/22 17:41 133 H 26 H 95/65 96 05/25/22 17:31 140 H 26 H 95/65 96 05/25/22 17:21 147 H 24 95/65 95 05/25/22 17:11 119 H 20 95/65 96 05/25/22 17:00 131 H 21 94/63 96 05/25/22 16:51 136 H 21 95/65 96 05/25/22 16:49 97.8 F 05/25/22 16:41 129 H 20 95/65 96 05/25/22 16:31 126 H 21 95/65 96 05/25/22 16:26 117 H 95/65 05/25/22 16:21 147 H 24 95/65 96 05/25/22 16:11 126 H 22 95/65 95 05/25/22 16:00 125 H 105 H 20 95/65 91 05/25/22 15:51 122 H 25 H 103/54 94 05/25/22 15:41 135 H 19 103/54 94 05/25/22 15:31 129 H 24 103/54 94 05/25/22 15:21 130 H 22 92/63 95 05/25/22 15:10 129 H 24 103/54 93 05/25/22 15:00 120 H 26 H 93 05/25/22 14:50 121 H 21 95 05/25/22 14:40 131 H 19 95 05/25/22 14:30 119 H 25 H 95 05/25/22 14:20 138 H 18 95 05/25/22 14:10 120 H 24 95 05/25/22 14:00 135 H 22 97 05/25/22 13:50 132 H 24 97 05/25/22 13:40 130 H 23 97 05/25/22 13:30 138 H 20 97 05/25/22 13:20 119 H 21 97 05/25/22 13:10 131 H 21 97 - Physical Examination General: No Apparent Distress HEENT: Positive: PERRL Neck: Positive: neck supple Cardiac: Positive: irregularly irregular Lungs: Positive: Decreased Breath Sounds Neuro: Positive: Weakness (Generalized lethargy) Abdomen: Positive: Soft Skin: Positive: Clear Extremities: Absent: edema - Labs and Meds Cardiac Enzymes 05/25/22 Range/Units 12:57 Lactate Dehydrogenase 149 (91-180) units/L CBC 05/25/22 05/26/22 Range/Units 12:57 04:11 WBC 5.8 7.4 (4.5-11.0) K/mm3 RBC 2.33 L 2.86 L (3.65-5.03) M/mm3 Hgb 7.0 L 8.2 L (11.8-15.2) gm/dl Hct 22.0 L 25.7 L (35.5-45.6) % Plt Count 134 L 178 (140-440) K/mm3 Lymph # (Auto) 0.6 L (1.2-5.4) K/mm3 Comprehensive Metabolic Panel 05/25/22 05/26/22 Range/Units 12:57 04:11 Sodium 136 L 138 (137-145) mmol/L Potassium 5.1 H 5.3 H (3.6-5.0) mmol/L Chloride 97.0 L 97.8 L (98-107) mmol/L Carbon Dioxide 22 25 (22-30) mmol/L BUN 40 H 46 H (9-20) mg/dL Creatinine 5.4 H 5.7 H (0.8-1.3) mg/dL Glucose 90 81 (75-100) mg/dL Calcium 9.0 9.1 (8.4-10.2) mg/dL - Allied health notes Allied health notes reviewed: nursing
--- NOTE | 2022-05-26 13:58 | XRay Report ---
CHEST 1 VIEW 05/26/2022 11:42 AM INDICATION / CLINICAL INFORMATION: recent RT thora, effusion. COMPARISON: 05/24/2022 FINDINGS: SUPPORT DEVICES: None. HEART / MEDIASTINUM: Stable cardiomegaly LUNGS / PLEURA: Recent right thoracentesis was performed with near complete evacuation of the right p leural fluid. Focal opacity persists at the right lung base which could represent atelectatic changes or infiltrate. The left lung is generally clear. No pneumothorax. ADDITIONAL FINDINGS: No significant additional findings. IMPRESSION: 1. No evidence for pneumothorax after right thoracentesis. 2. Cardiomegaly. 3. Airspace opacity at the right lung base could represent atelectasis or infiltrate. Follow-up is re commended. Signer Name: Isma Martinez Jr, MD Signed: 05/26/2022 1:54 PM Workstation Name: [id number]
[2022-05-26] MEDS ORDERED: AMIODARONE 300 MG in DEXTROSE 5% IN WATER 250 ML IV ONE (14:00)
--- NOTE | 2022-05-26 14:20 | Ultrasound Report ---
ULTRASOUND-GUIDED THORACENTESIS HISTORY: Right pleural effusion. COMPARISON: AP chest performed 11/21/2021 PROCEDURE: The risks (including but not limited to bleeding, infection, and pneumothorax) and benefi ts were explained to the patient's and informed consent was obtained by phone. A time out proced ure was performed. Ultrasound was used to evaluate the right pleural effusion and locate the optimal site for needle ent ry. Once the skin was marked, the procedure site was prepped and draped in the usual sterile fashion and lidocaine was used for local anesthesia. A 5-Georgian thoracentesis catheter was placed. The pat ient was monitored closely throughout the procedure, and a total of 2000 mL of blood-tinged fluid was aspirated. Samples were sent to the lab for further evaluation per the primary clinicians orders. The patient tolerated the procedure well with no complications. A post-procedure chest x-ray was imm ediately ordered. IMPRESSION: Successful ultrasound-guided right thoracentesis. Signer Name: Isma Martinez Jr, MD Signed: 05/26/2022 2:16 PM Workstation Name: [id number]
--- NOTE | 2022-05-26 15:53 | Consultation ---
History of Present Illness Consult date: 05/26/22 Reason for Consult: Encephalopathy Chief complaint: Altered Mental Status History of present illness: 57 yo male s/p sdh (s/p fall) w/ evacuation, htn, afib, esrdx w/ dialysis, copd, who presented initially with respiratory distress and noted with encephalopathy during this hospital course. Patient notes he is tired. Dozes off and on. Per RN, he is on high dose seroquel for underlying agitation. Noted with afib w/ rvr during hospitalization. No clinical seizures noted. Past History Past Medical History: atrial fib, COPD, dialysis, ESRD, hypertension, renal failure, other (Subdural hematoma, S/P craniotomy) Past Surgical History: Other (Evacuation of subdural hematoma. History of tracheostomy and PEG placement.) Social history: smoking, other (History of Cocaine abuse.) Family history: other (unable to obtain at present) Medications and Allergies Allergies Allergy/AdvReac Type Severity Reaction Status Date / Time No Known Allergies Allergy Unverified 05/17/22 15:36 Home Medications Medication Instructions Recorded Confirmed Last Taken Type ALPRAZolam 0.5 mg PO BID 05/19/22 05/19/22 Unknown History Clopidogrel [Plavix] 75 mg PO QDAY 05/19/22 05/19/22 Unknown History Losartan [Cozaar] 100 mg PO QDAY 05/19/22 05/19/22 Unknown History Metoprolol [Lopressor TAB] 100 mg PO BID 05/19/22 05/19/22 Unknown History NIFEdipine [Nifedipine ER] 60 mg PO BID 05/19/22 05/19/22 Unknown History Oxycodone HCl/Acetaminophen 1 each PO Q8H PRN 05/19/22 05/19/22 Unknown History [Oxycodone-Acetaminophen 10-325] QUEtiapine [SEROquel] 50 mg PO BID 05/19/22 05/19/22 Unknown History Trelegy Ellipta 100-62.5-25 100 mcg INHALATION DAILY 05/19/22 05/19/22 Unknown History dilTIAZem [CarDIZEM] 180 mg PO BID 05/19/22 05/19/22 Unknown History Active Meds: Active Medications Acetaminophen (Acetaminophen 325 Mg Tab) 650 mg PO Q4H PRN PRN Reason: Pain MILD(1-3)/Fever >100.5/DYER Last Admin: 05/24/22 01:13 Dose: 650 mg Albumin Human (Albumin Human 25% (25 Gm/100 Ml) Inj) 25 gm IV TOM PRN PRN Reason: Hypotension Last Admin: 05/22/22 14:54 Dose: 25 gm Albuterol (Albuterol 2.5 Mg/3 Ml Nebu) 2.5 mg IH Q3HRT PRN PRN Reason: Wheezing Alprazolam (Alprazolam 0.5 Mg Tab) 0.5 mg PO Q8HR PRN PRN Reason: Anxiety/agitation Last Admin: 05/23/22 21:03 Dose: 0.5 mg Amiodarone HCl (Amiodarone 200 Mg Tab) 200 mg PO BID [facility] Lipase/Protease/Amylase (Lipase 10,500/Protease 25,000/Amylase 43,750 (Units) Dr Cap) 1 each FEEDTUBE PRN PRN PRN Reason: For Clogged Feeding Tube Aspirin (Aspirin Ec 81 Mg Tab) 81 mg PO QDAY [facility] Last Admin: 05/26/22 12:20 Dose: 81 mg Dextrose (Dextrose 50% In Water (25gm) 50 Ml Syringe) 50 ml IV Q30MIN PRN; Protocol PRN Reason: Hypoglycemia Diltiazem HCl (Diltiazem 60 Mg Tab) 60 mg PO TID [facility] Last Admin: 05/26/22 14:29 Dose: 60 mg Diphenhydramine HCl (Diphenhydramine 25 Mg Cap) 25 mg PO Q6H PRN PRN Reason: Itching Last Admin: 05/24/22 23:31 Dose: 25 mg Docusate Sodium (Docusate Sodium 100 Mg Cap) 100 mg PO BID [facility] Last Admin: 05/26/22 11:32 Dose: 100 mg Epoetin Jacinto-epbx (Epoetin Jacinto-Epbx 10,000 Unit/1 Ml Vial) 10,000 unit IV TOM PRN PRN Reason: hemodialysis Last Admin: 05/22/22 16:56 Dose: 10,000 unit Famotidine (Famotidine 20 Mg Tab) 20 mg PO QDAY [facility] Last Admin: 05/26/22 11:30 Dose: 20 mg Sodium Chloride (Nacl 0.9%) 100 mls @ 999 mls/hr IV TOM PRN PRN Reason: Hypotension Losartan Potassium (Losartan 50 Mg Tab) 50 mg PO QDAY [facility] Last Admin: 05/26/22 12:20 Dose: Not Given Metoprolol Tartrate (Metoprolol Tartrate 100 Mg Tab) 100 mg PO BID [facility] Last Admin: 05/26/22 11:31 Dose: 100 mg Ondansetron HCl (Ondansetron 4 Mg/2 Ml Inj) 4 mg IV Q8H PRN PRN Reason: Nausea And Vomiting Oxycodone/Acetaminophen (Oxycodone /Acetaminophen 5-325mg Tab) 1 tab PO Q6H PRN PRN Reason: Pain, Moderate (4-6) Last Admin: 05/26/22 11:31 Dose: 1 tab Quetiapine Fumarate (Quetiapine 100 Mg Tab) 150 mg PO QDAY [facility] Last Admin: 05/26/22 11:31 Dose: 150 mg Quetiapine Fumarate (Quetiapine 100 Mg Tab) 200 mg PO QHS [facility] Last Admin: 05/25/22 21:29 Dose: 200 mg Senna/Docusate Sodium (Sennosides/Docusate Sodium 8.6/50 Mg Tab) 1 tab PO QHS [facility] Last Admin: 05/25/22 21:29 Dose: 1 tab Simple Syrup (Simple Syrup 15 Ml) 15 ml FEEDTUBE PRN PRN PRN Reason: Hypoglycemia Simple Syrup (Simple Syrup 15 Ml) 30 ml FEEDTUBE PRN PRN PRN Reason: Hypoglycemia Sodium Bicarbonate (Sodium Bicarbonate 325 Mg Tab) 325 mg FEEDTUBE PRN PRN PRN Reason: For Clogged Feeding Tube Sodium Chloride (Sodium Chloride 0.9% 10 Ml Flush Syringe) 10 ml IV BID [facility] Last Admin: 05/26/22 12:22 Dose: 10 ml Sodium Chloride (Sodium Chloride 0.9% 10 Ml Flush Syringe) 10 ml IV PRN PRN PRN Reason: LINE FLUSH Review of Systems ROS unobtainable: due to mental status Physical Examination - Vital Signs Vital Signs: Vital Signs Pulse Pulse Ox 159 H 90 05/17/22 14:16 05/17/22 14:16 - Physical Exam Narrative exam: Gen: nad; Head: normocephalic w/ craniotomy; Eyes: no gaze deviation; no ptosis; ENT: normal vocalization; CVS: warm and well-perfused; Pulm: no respiratory distress; GI: appears non-distended; Ext: no cyanosis appreciated at distal extremities; Skin: no acute rash at distal extremities; Heme: no pathologic ecchymosis appreciated at distal extremities; Neuro: somnolent/stuporous, oriented to name only; slight dysarthria, mixed aphasia, psychomotor slowing; CN 2 - PERRL but sluggish, visual fuentes - able to track briefly but not cooperative w/ visual field exam, CN 3, 4, 6 - no gaze deviation, CN 5/7 - blinks spontaneously w/ no facial droop; CN 8 - hearing grossly intact, CN 9, 10 - spontaneous swallow notede, CN 11/12 pt cannot cooperate due to loc / aphasia; Motor - at least 3/5 at all exts; Sensory - moves all exts to tactile stimuli, Cerebellar - difficulty due to loc + restraints, Gait - deferred secondary to fall risk; Results - Laboratory Findings CBC and BMP: 05/26/22 04:11 05/26/22 04:11 Abnormal Lab Findings: Abnormal Labs 05/17/22 05/17/22 05/17/22 14:26 14:28 15:10 WBC 4.0 L RBC 2.86 L Hgb 8.4 L Hct 24.9 L RDW 20.9 H Plt Count Lymph % (Auto) [place] % (Auto) 14.7 H Lymph # (Auto) 0.6 L [place] # (Auto) Seg Neutrophils % ABG pH ABG pO2 191.6 H ABG HCO3 ABG O2 Saturation 99.2 H ABG Base Excess ABG Hemoglobin 9.0 L Oxyhemoglobin Sodium 126 L Potassium 6.0 H Chloride 91.0 L BUN 42 H Creatinine 6.9 H Glucose POC Glucose Calcium Phosphorus Magnesium ALT < 5 L Ammonia Total Protein 6.1 L Albumin 2.9 L Hepatitis C Antibody Crossmatch 05/18/22 05/18/22 05/18/22 04:13 04:20 06:00 WBC 3.0 L RBC 2.87 L Hgb 8.1 L Hct 25.3 L RDW 20.7 H Plt Count 127 L Lymph % (Auto) [place] % (Auto) 15.1 H Lymph # (Auto) 0.5 L [place] # (Auto) Seg Neutrophils % ABG pH ABG pO2 158.7 H ABG HCO3 ABG O2 Saturation ABG Base Excess ABG Hemoglobin 9.4 L Oxyhemoglobin Sodium 128 L Potassium 6.8 H* Chloride 93.7 L BUN 48 H Creatinine 6.8 H Glucose POC Glucose Calcium Phosphorus Magnesium ALT Ammonia Total Protein Albumin Hepatitis C Antibody Crossmatch 05/18/22 05/18/22 05/18/22 17:49 18:10 23:15 WBC RBC Hgb Hct RDW Plt Count Lymph % (Auto) [place] % (Auto) Lymph # (Auto) [place] # (Auto) Seg Neutrophils % ABG pH ABG pO2 ABG HCO3 ABG O2 Saturation ABG Base Excess ABG Hemoglobin Oxyhemoglobin Sodium Potassium Chloride BUN Creatinine Glucose POC Glucose 144 H 145 H Calcium Phosphorus Magnesium ALT Ammonia Total Protein Albumin Hepatitis C Antibody Reactive A Crossmatch 05/19/22 05/19/22 05/19/22 03:18 03:18 05:21 WBC 2.6 L RBC 2.94 L Hgb 8.5 L Hct 26.2 L RDW 20.3 H Plt Count 137 L Lymph % (Auto) [place] % (Auto) Lymph # (Auto) [place] # (Auto) Seg Neutrophils % ABG pH ABG pO2 ABG HCO3 ABG O2 Saturation ABG Base Excess ABG Hemoglobin Oxyhemoglobin Sodium Potassium 5.1 H D Chloride BUN 34 H Creatinine 4.9 H Glucose 130 H POC Glucose 143 H Calcium 8.3 L Phosphorus Magnesium ALT Ammonia Total Protein Albumin Hepatitis C Antibody Crossmatch 05/19/22 05/19/22 05/20/22 11:23 17:48 00:01 WBC RBC Hgb Hct RDW Plt Count Lymph % (Auto) [place] % (Auto) Lymph # (Auto) [place] # (Auto) Seg Neutrophils % ABG pH ABG pO2 ABG HCO3 ABG O2 Saturation ABG Base Excess ABG Hemoglobin Oxyhemoglobin Sodium Potassium Chloride BUN Creatinine Glucose POC Glucose 127 H 156 H 142 H Calcium Phosphorus Magnesium ALT Ammonia Total Protein Albumin Hepatitis C Antibody Crossmatch 05/20/22 05/20/22 05/20/22 04:31 04:31 17:44 WBC RBC 2.72 L Hgb 7.8 L Hct 24.1 L RDW 20.9 H Plt Count Lymph % (Auto) [place] % (Auto) Lymph # (Auto) [place] # (Auto) Seg Neutrophils % ABG pH ABG pO2 ABG HCO3 ABG O2 Saturation ABG Base Excess ABG Hemoglobin Oxyhemoglobin Sodium Potassium 5.4 H Chloride 96.5 L BUN 53 H Creatinine 6.7 H Glucose 115 H POC Glucose 132 H Calcium 8.1 L Phosphorus 7.90 H Magnesium ALT Ammonia Total Protein Albumin Hepatitis C Antibody Crossmatch 05/21/22 05/21/22 05/21/22 04:13 07:50 11:43 WBC RBC Hgb Hct RDW Plt Count Lymph % (Auto) [place] % (Auto) Lymph # (Auto) [place] # (Auto) Seg Neutrophils % ABG pH ABG pO2 ABG HCO3 ABG O2 Saturation ABG Base Excess ABG Hemoglobin Oxyhemoglobin Sodium Potassium Chloride 97.7 L BUN 37 H Creatinine 4.9 H Glucose POC Glucose 111 H 109 H Calcium 8.0 L Phosphorus Magnesium ALT Ammonia Total Protein Albumin Hepatitis C Antibody Crossmatch 05/21/22 05/21/22 05/22/22 17:00 20:52 03:59 WBC RBC 2.31 L Hgb 6.8 L Hct 20.3 L RDW 20.4 H Plt Count 103 L Lymph % (Auto) [place] % (Auto) Lymph # (Auto) [place] # (Auto) Seg Neutrophils % ABG pH ABG pO2 ABG HCO3 ABG O2 Saturation ABG Base Excess ABG Hemoglobin Oxyhemoglobin Sodium Potassium Chloride BUN Creatinine Glucose POC Glucose 116 H 121 H Calcium Phosphorus Magnesium ALT Ammonia Total Protein Albumin Hepatitis C Antibody Crossmatch 05/22/22 05/22/22 05/22/22 03:59 06:00 07:33 WBC RBC Hgb Hct RDW Plt Count Lymph % (Auto) [place] % (Auto) Lymph # (Auto) [place] # (Auto) Seg Neutrophils % ABG pH ABG pO2 ABG HCO3 ABG O2 Saturation ABG Base Excess ABG Hemoglobin Oxyhemoglobin Sodium 134 L Potassium Chloride 94.7 L BUN 44 H Creatinine 5.7 H Glucose POC Glucose 135 H Calcium 7.9 L Phosphorus Magnesium 1.60 L ALT Ammonia Total Protein Albumin Hepatitis C Antibody Crossmatch See Detail 05/22/22 05/22/22 05/22/22 16:55 21:28 22:53 WBC RBC 2.70 L Hgb 7.9 L Hct 24.1 L RDW 20.3 H Plt Count 110 L Lymph % (Auto) [place] % (Auto) Lymph # (Auto) [place] # (Auto) Seg Neutrophils % ABG pH ABG pO2 ABG HCO3 ABG O2 Saturation ABG Base Excess ABG Hemoglobin Oxyhemoglobin Sodium Potassium Chloride BUN Creatinine Glucose POC Glucose 146 H 126 H Calcium Phosphorus Magnesium ALT Ammonia Total Protein Albumin Hepatitis C Antibody Crossmatch 05/22/22 05/22/22 05/23/22 22:53 22:53 04:00 WBC RBC 2.84 L Hgb 8.4 L Hct 25.5 L RDW 20.5 H Plt Count 108 L Lymph % (Auto) [place] % (Auto) Lymph # (Auto) [place] # (Auto) Seg Neutrophils % ABG pH ABG pO2 ABG HCO3 ABG O2 Saturation ABG Base Excess ABG Hemoglobin Oxyhemoglobin Sodium 136 L Potassium Chloride 97.6 L BUN 30 H Creatinine 3.9 H Glucose 132 H POC Glucose Calcium Phosphorus 2.20 L D Magnesium ALT Ammonia Total Protein Albumin Hepatitis C Antibody Crossmatch 05/23/22 05/24/22 05/24/22 04:17 05:15 08:15 WBC RBC 2.79 L Hgb 8.0 L Hct 24.6 L RDW 20.2 H Plt Count 133 L Lymph % (Auto) 6.0 L [place] % (Auto) 9.7 H Lymph # (Auto) 0.5 L [place] # (Auto) 0.9 H Seg Neutrophils % 82.8 H ABG pH ABG pO2 ABG HCO3 ABG O2 Saturation ABG Base Excess ABG Hemoglobin Oxyhemoglobin Sodium 134 L Potassium 5.8 H D Chloride 96.4 L BUN 32 H 48 H Creatinine 4.1 H 5.4 H Glucose 107 H POC Glucose Calcium Phosphorus 2.30 L Magnesium ALT Ammonia Total Protein Albumin Hepatitis C Antibody Crossmatch 05/24/22 05/25/22 05/25/22 08:15 12:00 12:57 WBC RBC 2.33 L Hgb 7.0 L Hct 22.0 L RDW 20.5 H Plt Count 134 L Lymph % (Auto) 10.8 L [place] % (Auto) 13.1 H Lymph # (Auto) 0.6 L [place] # (Auto) Seg Neutrophils % 74.5 H ABG pH 7.494 H ABG pO2 61.1 L ABG HCO3 28.5 H ABG O2 Saturation ABG Base Excess 4.9 H ABG Hemoglobin 6.8 L Oxyhemoglobin 94.5 L Sodium Potassium Chloride BUN Creatinine Glucose POC Glucose Calcium Phosphorus Magnesium ALT Ammonia 24.0 L Total Protein Albumin Hepatitis C Antibody Crossmatch 05/25/22 05/26/2205/26/22 12:57 04:11 04:11 WBC RBC 2.86 L Hgb 8.2 L Hct 25.7 L RDW 19.8 H Plt Count Lymph % (Auto) [place] % (Auto) Lymph # (Auto) [place] # (Auto) Seg Neutrophils % ABG pH ABG pO2 ABG HCO3 ABG O2 Saturation ABG Base Excess ABG Hemoglobin Oxyhemoglobin Sodium 136 L Potassium 5.1 H 5.3 H Chloride 97.0 L 97.8 L BUN 40 H 46 H Creatinine 5.4 H 5.7 H Glucose POC Glucose Calcium Phosphorus Magnesium ALT Ammonia Total Protein Albumin Hepatitis C Antibody Crossmatch Assessment and Plan 57 yo male s/p sdh (s/p fall) w/ evacuation, htn, afib, esrdx w/ dialysis, copd, who presented initially with respiratory distress and noted with encephalopathy during this hospital course. 1. Delirium / Acute (Subacute) Metabolic Encephalopathy - in the setting of underling infection / inflammation; serologies ordered; aggressive treatment per primary team. 2. Acute / Subacute Ischemic Stroke (?frontal lobe; cardioembolic) - may continue asa 81 mg po qday (see #4 below); urgent ct head wo contrast; mri brain w/o contrast (when clinically stable); further workup based on MR findings. 3. Seizure (subclinical) - in the setting of underlying inflammation and high dose seroquel; eeg ordered. 4. Afib w/ RVR - medical management w/ watchman procedure for secondary stroke prophylaxis. 5. Hypertension - aim for normotension. Abdulaziz Zhu MD [employer] [id number]
[2022-05-26] MEDS: AMIODARONE 200 MG TAB PO SCH ×2 (16:32→21:10)
[2022-05-26 17:38] LABS: Total Cells Counted 100 /mm3
[2022-05-26] MEDS ORDERED: SODIUM CHLORIDE 0.9% 1000 ML 1,000 ML ONE (19:50)
[2022-05-26] MEDS: EPOETIN ALFA-EPBX 10,000 UNIT/1 ML VIAL IV PRN (20:11)
[2022-05-26] MEDS: SENNOSIDES/DOCUSATE SODIUM 8.6/50 MG TAB PO SCH (21:09)
--- NOTE | 2022-05-27 01:07 | Cat Scan Report ---
CT HEAD WITHOUT CONTRAST INDICATION: cva; recent sdh TECHNIQUE: All CT scans at this location are performed using CT dose reduction for ALARA by means of automated exposure control. COMPARISON: None available. FINDINGS: BRAIN: No hemorrhage or mass effect are seen. No evidence of acute infarction is noted. 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 The thin hyperdensity along the left parietal convexity is unchanged. Whi te matter microvascular changes are again noted. No obvious change is seen from recent study. ORBITS: Normal as visualized. SOFT TISSUES OF HEAD: Normal. CALVARIUM: Left craniotomy changes are again seen. VISUALIZED PARANASAL SINUSES AND MASTOID AIR CELLS: Clear. ADDITIONAL FINDINGS: None. IMPRESSION: No acute intracranial abnormality. Signer Name: Epi Parikh MD Signed: 05/27/2022 1:03 AM Workstation Name: [id number]
[2022-05-27] MEDS: ALPRAZolam 0.5 MG TAB PO PRN ×2 (02:37→10:10)
[2022-05-27] MEDS: dilTIAZem 60 MG TAB PO SCH ×3 (09:02→19:53)
[2022-05-27] MEDS: FAMOTIDINE 20 MG TAB PO SCH (10:07)
[2022-05-27] MEDS: QUEtiapine 100 MG TAB PO SCH ×2 (10:07→21:55)
[2022-05-27] MEDS: AMIODARONE 200 MG TAB PO SCH ×2 (10:07→21:55)
--- NOTE | 2022-05-27 12:34 | Progress Note ---
Assessment and Plan Assessment and plan: Assessment and plan: This is a 56-year-old male with HTN, cardiomyopathy, ESRD on HD, COPD, former cocaine abuser, SDH with left shift and hemoperitoneum s/p decompressive cranio jason and paracentesis, acute hypoxic respiratory failure s/p tracheostomy with eventual decannulation who was admitted with acute hypoxic respiratory failure requiring ventilatory support. Hospital course to date: 05/18: Patient is following commands remains sedated on Precedex. Patient will receive hemodialysis today. Likely will CPAP tomorrow. NG tube placed and sta rted on tube feedings. 05/19: S/p extubation, stable on RA. Patient is s/p fall today, now c/o of Left elbow and pelvic pain. Orders placed for Lt. elbow X-ray and CT head/lumbar spine/pelvic. PRN analgesia orderd for pain control. Patient remains in Afib with RVR HR in the 120-130s, currently on PO amio. Patient's home meds list is available will resume home medications for rate control. Possible Cardiology consult if Afib RVR persists. Will keep patient in the ICU for another 24hrs post extubation, possible transfer to the floor tomorrow if patient remains stable. 05/20: Increase anxiety and agitation overnight, back on low dose precedex gtt. Lt. elbow X-ray and CT scans reviewed, fractures enthesophytes, superior and inferior pubic rami with soft tissue hematoma reported. H&H is stable, no s/s of any active bleeding. Ortho consulted for further eval and treat. Continue to trend CBC and PRN analgesia for pain control. Patient remains in Afib with RVR, on BB, BP stable. Given patient's current Afib with RVR, will continue VTE proph for now, awaiting Cardio and Ortho recommendations. Cardiology also consulted. Patient's home seroquel and antianxiety regime resumed. Wean off precedex gtt for RASS goal of 0 to -1. Plan for HD today per Nephro. PT/OT ordered. 05/21: Remains on precedex gtt due to increase agitation and combativeness overnight, symptoms resolved this am. Patient's family reported multiple psych issues since childhood. Seroquel adjusted and Mental health/psych consulted. Patient remains in Afib but in rate control this am. Cardiology recommendations appreciated, 2D echo pending. Attending also discussed with Ortho, with no indication of any surgery at this time. Ortho recommends PT/OT and weight bearing as tolerated. Full consult pending. JESSIAC alston ordered. PRN analgesia for pain control. 05/22: Remains on precedex, more calm and appropriate this am. Remains on 2L NC, hypoxia noted overnight on RA, recent CXR noted with increase CHF/pulmonary edema. Patient remains in Afib but in control rate. 2D echo and cardiology recommendations noted. Patient with low BP this am, BB reduced to 50mg BID and antihypertensive therapy held today. H&H also dropped this am and worsen thrombocytopenia this am, no s/s of any active bleeding. Will hold AC for now, 1unit of PRBCs rdered and iHD today per Nephro. Patient has been refusing PT and OOB activity, still c/o of buttocks and hip pain. Continue to encourage OOB and physical therapy. PRN analgesia for pain control. Monitor and replace electrolytes as needed. 05/23: Mentation remains labile. Awake but still with periods of confusion and agitation. Off precedex gtt this am. Patient tolerated HD yesterday 3L removed, stable on 2L NC. In Afib with RVR, HR in 140s this am. D/w Cardio plan to adjust regimen therapy for rate control. Okay to transfer patient to IMCU per CCM. 05/24: Patient seen and examined, Cardiology evaluated the patient yesterday made some adjustment to BP management. Patient remains confused with AMS and cxr obtained this morning due to worsening Hypoxia shows increased opacities to the Right lung. Sent to the Pulmonary doctor for review. Will keep NPO for now and may need dobhuff if prolonged AMS. Patient underwent speech eval prior and passed 05/19. Considering the waxing and waning mentation, will consider obtaining MRI Brain when stable and also obtain Neurology consult. Continue IMCU care, may need to move back to ICU if no improvement. Discussed with Pulm and Darline. HD ordered for today 05/25: Awake, still confused with periods of agitation. MRI and Neurology consult pending. Patient remains in Afib RVR this am with low BP. S/p iHD yesterday 2L removed. still on NRB SPO2 above 95%. Hold all BB, cardizem, and all antihypertensive today. X1 of IV albumin and 500cc IVF bolus today, and midodrine was initiated. Patient is also hyperkalemic this am, plan for iHD again today. Thoracentesis pending for moderate pleural effusion. 05/26: Awake but still confused as reported on prior encounters. Remains in Afib RVR rate in 140-150's....amiodorone added by cardiology. Midodrine stopped as patient blood pressure was elevated today in 130's systolic. S/p thoracentesis, will need to wean off nrb as sats tolerate. 05/27; Awake, follows more commands today. Less aggitated, responding well to xanax. Thoracentesis completed yesterday, approx 2L removed yesterday. CT brain ordered yesterday evening negative for acute findings. MR brain still pending, d/w RN to see if patient could get study completed today. HR remains elevated, max rate 140 this AM. Continue rate/rhythm control with dilt/metoprolol/amiodorone. Spoke with and updated about plan for today. Assessment and Plan Neuro: Acute Metabolic Encephalopathy-improved h/o SDH with left shift s/p decompressive craniotomy, h/o cocaine abuse/Spych issues S/p Fall -S/p extubation, off sedations -AAO, but with periods of disorientation, very impulsive -Remains on precedex overnight due to increase anxiety/agitation/combativeness -Patient's family reported multiple psych issues since childhood -seroquel adjusted, continue PRN xanax -Wean precededx gtt for RASS goal 0 to -1 -Mental Health/psych consulted -Reorientation as needed -Maintain sleep-wake cycle -As needed analgesia -Fall precaution -PT/OT consulted Cardiac: Atrial Fibrilation with RVR, Systolic HFrEF, Moderate Pulmonary HTN h/o cardiomyopathy, HTN -Patient remains in Afib, but in rate control this am. VSS -Cardiology consulted, appreciate recommendations -2D echo reviewed, LVEF 40-45%, moderate pulmonary HTN- RSVP 45-50 -Low BP today, all antihypertensive and antiarrhytmic therapy held -X1 dose of IV albumin and 500 cc NS, midodrine added -Blood pressure monitoring per protocol -Maintain SBP less than 160 -AC held due to anemia and thrombocytopenia Respiratory: Acute hypoxic respiratory failure, s/p tracheostomy with eventual decannulation, COPD, Moderate Right Pleural Effusion -[facility] consulted, appreciate recommendations -Intubated on 05/17 at OSH; 05/19 s/p extubation -Now on NRB -Recent CXR reviewed, with moderate right pleural effusuion -Thoracentesis pending -Continue iHD per Nephro, 2L removed yesterday -Continue O2 supplementation and wean as tolerated -SPO2 monitoring for SPO2 goal aboev 92% -Of note patient self decannulated on 05/05 Superior and Inferior Pubic Rami fractures Left Enthesophytes Fracture S/p Fall -Noted from Lt. Elbow X-ray and CT scan, see report for details -Ortho consulted, appreciate recommendations -Attending also discussed with Ortho, with no indication of any surgery at this time. -Ortho recommends PT/OT and weight bearing as tolerated. -LUE sling ordered. -PT/OT consulted -Patient has been refusing PT and OOB activity -Fall precaution -Continue to encourage OOB and physical therapy -PRN Analgesia for pain control GI: Moderate protein calorie malnutrition -S/p PEG tube placement, however now off -Patient removed Richter catheter that was in the PEG-tube stoma, dressing present -Patient passed bedside swallow, renal diet ordered -Speech also following -S/p paracentesis at [facility] on 05/06 with removal of 2.7 L : ESRD on HD, hyperkalemia -Nephrology consulted, appreciate recommendations -Continue HD per Nephro -Monitor intake and output -Renally dose medications -Avoid nephrotoxic medications -Monitor and replace electrolytes as needed -Trend BMP Heme: Anemia of Chronic Disease, Thrombocytopenia -Probably chronic 2/2 of ESRD -s/p 1unit of PRBCs -H&H stable and plt improved -No s/s of any active bleeding -Continue Epogen with iHD per Nephro -AC held due to anemia and thrombocytopenia -Transfuse for hgb less than 7 ID: Sepsis (POA) -Leukopenia, CXR showed left-sided effusion with associated opacity and mild right basilar atelectasis -COVID-19 PCR negative, MRSA PCR negative -s/p Antibiotic therapy with cefepime -f/u blood culture -Monitor WBC and temperature curve GI/DVT Prophylaxis -PPI- pepcid -SCDs to bilateral lower extremities while in bed The high probability of a clinically significant, sudden or life threatening deterioration of the [multi] system(s) required my full and direct attention, intervention and personal management. The aggregate critical care time was [60] minutes. This time is in addition to time spent performing reported procedures but includes the following: [x] Data Review and interpretation [x] Patient assessment and monitoring of vital signs [x] Documentation [x] Medication orders and management Disposition Plan: IMCU Total Time Spent with Patient (Minutes): 60 History Interval history: No acute overnight issues. patient calm this am on encounter. He ate his breakfast with no issues per RN. Hospitalist Physical - Physical exam Narrative exam: - Physical exam Narrative exam: General appearance: Present: no acute distress, cachectic - EENT Eyes: Present: PERRL ENT: hearing intact - Neck Neck: Present: normal ROM - Respiratory Respiratory effort: normal Respiratory: bilateral: diminished - Cardiovascular Rhythm: irregularly irregular Heart Sounds: Present: S1 & S2 - Extremities Extremities: no ischemia, pulses intact, pulses symmetrical Peripheral Pulses: within normal limits - Abdominal General gastrointestinal: soft, non-distended, normal bowel sounds - Integumentary Integumentary: Present: warm, dry - Psychiatric Psychiatric: other (Confused, Impulsive at time) - Neurologic Neurologic: moves all extremities, other (Awake but confused, with periods of agitation) - Allied Health Allied health notes reviewed: nursing, case management - Constitutional Vitals: Temp Pulse Resp BP Pulse Ox 97.8 F 120 H 16 111/55 96 05/27/22 12:00 05/27/22 12:00 05/27/22 12:00 05/27/22 12:00 05/27/22 12:00 General appearance: Present: mild distress, cachectic Results - Labs CBC & Chem 7: 05/26/22 04:11 05/26/22 04:11 Labs: Laboratory Last Values WBC 7.4 K/mm3 (4.5-11.0) 05/26/22 04:11 RBC 2.86 M/mm3 (3.65-5.03) L 05/26/22 04:11 Hgb 8.2 gm/dl (11.8-15.2) L 05/26/22 04:11 Hct 25.7 % (35.5-45.6) L 05/26/22 04:11 MCV 90 fl (84-94) 05/26/22 04:11 MCH 29 pg (28-32) 05/26/22 04:11 MCHC 32 % (32-34) 05/26/22 04:11 RDW 19.8 % (13.2-15.2) H 05/26/22 04:11 Plt Count 178 K/mm3 (140-440) 05/26/22 04:11 Lymph % (Auto) 10.8 % (13.4-35.0) L 05/25/22 12:57 [place] % (Auto) 13.1 % (0.0-7.3) H 05/25/22 12:57 Eos % (Auto) 1.5 % (0.0-4.3) 05/25/22 12:57 Baso % (Auto) 0.1 % (0.0-1.8) 05/25/22 12:57 Lymph # (Auto) 0.6 K/mm3 (1.2-5.4) L 05/25/22 12:57 [place] # (Auto) 0.8 K/mm3 (0.0-0.8) 05/25/22 12:57 Eos # (Auto) 0.1 K/mm3 (0.0-0.4) 05/25/22 12:57 Baso # (Auto) 0.0 K/mm3 (0.0-0.1) 05/25/22 12:57 Seg Neutrophils % 74.5 % (40.0-70.0) H 05/25/22 12:57 Seg Neutrophils # 4.3 K/mm3 (1.8-7.7) 05/25/22 12:57 ABG pH 7.494 pH Units (7.350-7.450) H 05/25/22 12:00 ABG pCO2 38.0 mm Hg 05/25/22 12:00 ABG pO2 61.1 mm Hg (80.0-90.0) L 05/25/22 12:00 ABG HCO3 28.5 mmol/L (20.0-26.0) H 05/25/22 12:00 ABG O2 Saturation 96.8 % (95.0-99.0) 05/25/22 12:00 ABG O2 Content 9.1 (0.0-44) 05/25/22 12:00 ABG Base Excess 4.9 mmol/L (-2.0-3.0) H 05/25/22 12:00 ABG Hemoglobin 6.8 gm/dl (14.0-18.0) L 05/25/22 12:00 ABG Carboxyhemoglobin 1.8 % (0.0-5.0) 05/25/22 12:00 ABG Methemoglobin 0.5 % (0.0-1.5) 05/25/22 12:00 Oxyhemoglobin 94.5 % (95.0-99.0) L 05/25/22 12:00 FiO2 100 % 05/25/22 12:00 Sodium 138 mmol/L (137-145) 05/26/22 04:11 Potassium 5.3 mmol/L (3.6-5.0) H 05/26/22 04:11 Chloride 97.8 mmol/L (98-107) L 05/26/22 04:11 Carbon Dioxide 25 mmol/L (22-30) 05/26/22 04:11 Anion Gap 21 mmol/L 05/26/22 04:11 BUN 46 mg/dL (9-20) H 05/26/22 04:11 Creatinine 5.7 mg/dL (0.8-1.3) H 05/26/22 04:11 Estimated GFR 10 ml/min 05/26/22 04:11 BUN/Creatinine Ratio 8 % 05/26/22 04:11 Glucose 81 mg/dL (75-100) 05/26/22 04:11 POC Glucose 126 mg/dL (70-105) H 05/22/22 21:28 Lactic Acid 1.00 mmol/L (0.7-2.0) 05/25/22 13:20 Calcium 9.1 mg/dL (8.4-10.2) 05/26/22 04:11 Phosphorus 3.90 mg/dL (2.5-4.5) D 05/24/22 05:15 Magnesium 2.20 mg/dL (1.7-2.3) 05/24/22 05:15 Total Bilirubin 0.40 mg/dL (0.1-1.2) 05/17/22 14:28 AST 7 units/L (5-40) 05/17/22 14:28 ALT < 5 units/L (7-56) L 05/17/22 14:28 Alkaline Phosphatase 78 units/L (35-129) 05/17/22 14:28 Ammonia 24.0 umol/L (25-60) L 05/24/22 08:15 Lactate Dehydrogenase 149 units/L (91-180) 05/25/22 12:57 Total Protein 6.1 g/dL (6.3-8.2) L 05/17/22 14:28 Albumin 2.9 g/dL (3.9-5) L 05/17/22 14:28 Albumin/Globulin Ratio 0.9 % 05/17/22 14:28 Vitamin B12 633.2 pg/mL (211-911) 05/27/22 04:33 Folate 6.08 ng/mL (7.3-26.0) L 05/27/22 04:33 TSH 8.200 mlU/mL (0.270-4.200) H 05/27/22 04:33 Fluid Type Pleural 05/26/22 11:59 Fluid Color Vicenta 05/26/22 11:59 Fluid Appearance Cloudy 05/26/22 11:59 Fluid WBC 1375 /mm3 05/26/22 11:59 Fluid RBC 62079 /mm3 05/26/22 11:59 Fluid Seg Neutrophils 88.0 % 05/26/22 11:59 Fluid Lymphocytes 6.0 % 05/26/22 11:59 Fluid Monocytes 6.0 % 05/26/22 11:59 Nasal Screen MRSA (PCR) Negative (Negative) 05/18/22 08:30 Syphilis IgG/IgM Ab Nonreactive (NonReactive) 05/27/22 04:33 Coronavirus (PCR) Negative (Negative) 05/24/22 11:05 Hepatitis A IgM Ab Non-reactive (NonReactive) 05/18/22 18:10 Hep Bs Antigen Non-reactive (Negative) 05/18/22 18:10 Hep B Core IgM Ab Non-reactive (NonReactive) 05/18/22 18:10 Hepatitis C Antibody Reactive (NonReactive) A 05/18/22 18:10 Blood Type A NEGATIVE 05/22/22 06:00 Antibody Screen Negative 05/22/22 06:00 Crossmatch See Detail 05/22/22 06:00 Microbiology: Microbiology 05/24/22 10:45 Peripheral/Venous Blood Culture - Preliminary NO GROWTH AFTER 72 HOURS 05/24/22 10:15 Peripheral/Venous Blood Culture - Preliminary NO GROWTH AFTER 72 HOURS 05/26/22 11:59 Pleural Fluid - Pleura,Rt Lung Body Fluid Culture - Preliminary Active Medications - Current Medications Current Medications: Generic Name Dose Route Start Last Admin Trade Name Freq PRN Reason Stop Dose Admin Acetaminophen 650 mg 05/17/22 14:26 05/24/22 01:13 Acetaminophen 325 Mg Tab PO 650 mg Q4H PRN Administration Pain MILD(1-3)/Fever >100.5/DYER Albumin Human 25 gm 05/18/22 09:10 05/22/22 14:54 Albumin Human 25% (25 Gm/100 Ml) Inj IV 25 gm TOM PRN Administration Hypotension Albuterol 2.5 mg 05/18/22 06:02 Albuterol 2.5 Mg/3 Ml Nebu IH Q3HRT PRN Wheezing Alprazolam 0.5 mg 05/23/22 12:50 05/27/22 10:10 Alprazolam 0.5 Mg Tab PO 0.5 mg Q8HR PRN Administration Anxiety/agitation Amiodarone HCl 200 mg 05/26/22 14:00 05/27/22 10:07 Amiodarone 200 Mg Tab PO 200 mg BID DAQUAN Administration Lipase/Protease/Amylase 1 each 05/26/22 11:06 Lipase 10,500/Protease 25,000/Amylase 43,750 (Units) Dr Martinez FEEDTUBE PRN PRN For Clogged Feeding Tube Aspirin 81 mg 05/21/22 10:00 05/26/22 12:20 Aspirin Ec 81 Mg Tab PO 81 mg QDAY DAQUAN Administration Dextrose 50 ml 05/18/22 15:00 Dextrose 50% In Water (25gm) 50 Ml Syringe IV Q30MIN PRN Hypoglycemia Protocol Diltiazem HCl 60 mg 05/25/22 14:00 05/27/22 09:02 Diltiazem 60 Mg Tab PO 60 mg TID DAQUAN Administration Diphenhydramine HCl 25 mg 05/20/22 13:30 05/24/22 23:31 Diphenhydramine 25 Mg Cap PO 25 mg Q6H PRN Administration Itching Docusate Sodium 100 mg 05/22/22 10:00 05/26/22 21:09 Docusate Sodium 100 Mg Cap PO 100 mg BID DAQUAN Administration Epoetin Jacinto-epbx 10,000 unit 05/18/22 09:10 05/26/22 20:11 Epoetin Jacinto-Epbx 10,000 Unit/1 Ml Vial IV 10,000 unit TOM PRN Administration hemodialysis Famotidine 20 mg 05/20/22 10:00 05/27/22 10:07 Famotidine 20 Mg Tab PO 20 mg QDAY DAQUAN Administration Sodium Chloride 100 mls @ 999 mls/hr 05/24/22 08:11 Nacl 0.9% IV TOM PRN Hypotension Losartan Potassium 50 mg 05/26/22 10:00 05/26/22 12:20 Losartan 50 Mg Tab PO Not Given QDAY DAQUAN Metoprolol Tartrate 100 mg 05/25/22 22:00 05/26/22 21:09 Metoprolol Tartrate 100 Mg Tab PO 100 mg BID DAQUAN Administration Ondansetron HCl 4 mg 05/24/22 17:30 Ondansetron 4 Mg/2 Ml Inj IV Q8H PRN Nausea And Vomiting Oxycodone/Acetaminophen 1 tab 05/21/22 11:00 05/26/22 11:31 Oxycodone /Acetaminophen 5-325mg Tab PO 1 tab Q6H PRN Administration Pain, Moderate (4-6) Quetiapine Fumarate 150 mg 05/24/22 18:00 05/27/22 10:07 Quetiapine 100 Mg Tab PO 150 mg QDAY DAQUAN Administration Quetiapine Fumarate 200 mg 05/24/22 17:30 05/26/22 21:09 Quetiapine 100 Mg Tab PO 200 mg QHS DAQUAN Administration Senna/Docusate Sodium 1 tab 05/22/22 22:00 05/26/22 21:09 Sennosides/Docusate Sodium 8.6/50 Mg Tab PO 1 tab QHS DAQUAN Administration Simple Syrup 15 ml 05/26/22 11:06 Simple Syrup 15 Ml FEEDTUBE PRN PRN Hypoglycemia Simple Syrup 30 ml 05/26/22 11:06 Simple Syrup 15 Ml FEEDTUBE PRN PRN Hypoglycemia Sodium Bicarbonate 325 mg 05/26/22 11:06 Sodium Bicarbonate 325 Mg Tab FEEDTUBE PRN PRN For Clogged Feeding Tube Sodium Chloride 10 ml 05/17/22 22:00 05/27/22 10:08 Sodium Chloride 0.9% 10 Ml Flush Syringe IV 10 ml BID DAQUAN Administration Sodium Chloride 10 ml 05/17/22 14:26 Sodium Chloride 0.9% 10 Ml Flush Syringe IV PRN PRN LINE FLUSH Nutrition/Malnutrition Assess - Dietary Evaluation Nutrition/Malnutrition Findings: Nutrition Notes Start: 05/18/22 14:16 Freq: Status: Active Protocol: Document 05/26/22 10:24 LUCERO (Rec: 05/26/22 11:11 LUCERO [id number]) Nutrition Notes Initial or Follow up Reassessment Current Diagnosis CKD (stage V CKD),COPD, Hypertension,Respiratory Failure,Malnutrition Other Pertinent Diagnosis Metabolic Encephalopathy, L- Elbow+Pelvic Fractures s/p Fall, ESRD+HD, Atria Current Diet Renal Diet (since D 05/19), TF -Nepro w/CARBSTEADY @ 50 ml/hr (from L 05/26) Labs/Tests 05/26: K 5.3, Cl 97.8, BUN 46, Crea 5.7. Pertinent Medications 05/26: Nutritionally unremarkable. Height 6 ft 4 in Weight 76.3 kg [place] Body Weight (kg) 91.81 BMI 20.5 Weight change and time frame No body weight change reported in 1 week. Weight Status Appropriate Subjective/Other Information RD consult for write/manage TF assessment. PO diet continues as prescribed, but RN states that Pt PO intake of meals is Negligible (0%). I will prescribe TF to provide Pt with energy/protein needs during LOS. Pt is on Nasal Cannula, O2 saturation @ 94%, according to Physical Assessment History notes. Pt has a PEG-tube placed [employer], according to Historty & Physical notes. Percent of energy/protein needs met: Prescribed TF-Nepro w/ CARBSTEADY @ 50 ml/hr provides for energy/protein needs (2, 180 Kcal/98 g) during LOS, 99% Kcal; 100% AA. Burn Absent Trauma Present GI Symptoms None Food Allergy No Skin Integrity/Comment R-hand abrasions+neck surgical woun Current % PO Negligible Minimum of two criteria No Fluid Accumulation N/A Reduced Equity Manager Strength N/A (non-severe) Protein-Calorie Malnutrition N\A #1 Nutrition Diagnosis Swallowing difficulty Comments: PO diet discontinued and TF request placed by . Diagnosis Progress(for reassessment Continues documentation) Is patient on ventilator? No Is Patient Ambulatory and/or Out of Bed Yes REE-(Walters-St. Jeor-ambulatory/OOB) [ [id number] [id number]] Calculation Used for Recommendations [facility] Additional Notes Protein: >1.2 g/Kg ABW; >92 g/ day. Fluids: 1 ml/Kcal, or as per MD. Nutrition Intervention Change Diet Order: Discontinued. Nutrition Support: Start TF-Nepro w/CARBSTEADY @ 50 ml/hr. Flush: 220 ml water Q 4 hr, or as per MD. Kcal 2,180 Protein (gm) 98 Carbohydrates (gm) 195 Fat (gm) 116 Fluid (mL) 880 Fiber (gm) 15 % RDI: 99% Kcal; 100% AA. Add Supplement/Snack (indicate name/kcal Discontinued. /protein ) Goal #1 Provide at least 75% of energy /protein needs through Enteral Feeding during LOS. Goal #2 Adjust the dietary intervention to better serve Pt's needs and clinical conditions during LOS. Follow-Up By: 05/28/22 Additional Comments Start monitoring TF tolerance and BM.
--- NOTE | 2022-05-27 12:45 | Progress Note ---
Assessment and Plan This 56 year old Male transfered from [facility]. Patient developed severe respiratory distress at [facility]. Patient intubated and placed on mechanical ventilation. Patient transfered to [facility] ICU for further management and placement of central venous acess. Patient was on mechanical ventilation in the past. Patient was weaned from the ventilator and decanulated him. Patient agitated and developed severe respiratory distress, patient intubated and placed on assist control and volume control mechanical ventilation. Patient has history of HTN, Cardiomyopathy, ESRD on dialysis, COPD, History of Cocaine abuse Originally admitted to [facility] on 03/23/22 with altered mental status and CT of head obtained showed large Subdural hematoma with left shift.and also had hemoperitoneum.Patient undergone decompressive craniotomy.Patient also undergone paracentesis. Patient intubated and placed on mechanical ventilation subsequently has tracheostomy and PEG placement. Transfered to [facility] at that point. Patient weaned from the ventilator, subsequently decanulated. Patient tolerated decanulation well. Patient is on room air yesterday with 100% O2 saturation. Patient very anxious, May have seizure like activity, patients respiratory status detriorated, patient reintubated and placed on assist control mechanical ventilation. According to the chart, patient has history of smoking and Cocaine use. and has children. No known drug allergies. Patient sedated, not responding to verbal stimuli. Patient presently on assist control, volume control, rate 15, Tidal volume 450, FIO2 40%, PEEP 6 and O2 saturation running 100%. Recommend to decrease FIO2 to 30%. ABG on mechanical ventilation, AC/VC rate 15, Tidal volume 450, PEEP 6, FIO2 40% ABG pH 7.416 pH Units (7.350-7.450) 05/17/22 15:10 ABG pCO2 38.4 mm Hg 05/17/22 15:10 ABG pO2 191.6 mm Hg (80.0-90.0) H 05/17/22 15:10 ABG O2 Saturation 99.2 % (95.0-99.0) H 05/17/22 15:10 Recommend to decrease FIO2 to 30%. Patient eventually extubated. Patient transfered to [facility]. Patient sleepy and lethergic. On 4 litres O2. O2 saturation 97%. No acute respiratory distress. Patient afebrile. No leukocytosis. Blood pressure 94/74, pulse 114 , Respirations 21. Chest xray done 05/17/22 reported Layering left-sided effusion with associated opacity and mild right basilar atelectasis remain. No pneumothorax. Lines and tubes in satisfactory position. Patient undergone right thoracentesis 05/26/22. Aspirated 2000 ml of blood tinged fluid. Pleural fluid WBC 1375, RBC 11,000. Pleural fluid protein and LDH results pending. Chest xray Post thoracentesis done 05/26/22 No evidence for pneumothorax after right thoracentesis. Cardiomegaly. Airspace opacity at the right lung base could represent atelectasis or infiltrate. Follow-up is recommended. Patient is on Albuterol inhaler and famotidine. Recommend Nutritional evaluation. I spent critical care time of 40 minutes, reviewing the chart, examine the patient,review labs, chest xray, talking to the nursing staff, respiratory therapy and work up plan of treatment in this critically ill patient. - Patient Problems (1) Acute respiratory failure with hypoxia Current Visit: Yes Status: Acute Plan to address problem: On 4 litres O2. O2 saturation 97%. Recommend xopenex and atrovent aerosol treatments q 8 hours. S/C Heparin Famotidine. (2) Subdural hematoma Current Visit: Yes Status: Chronic Plan to address problem: Patient undergone decompressive Craniotomy at [facility]. Management as per neurology. (3) Toxic metabolic encephalopathy Current Visit: Yes Status: Acute Plan to address problem: Management as per primary care and neurology. (4) ESRD on dialysis Current Visit: Yes Status: Chronic Plan to address problem: Management as per nephrology. (5) HTN (hypertension) Current Visit: Yes Status: Chronic Qualifiers: Hypertension type: primary hypertension Qualified Code(s): I10 - Essential (primary) hypertension Plan to address problem: Management as per primary care. (6) COPD (chronic obstructive pulmonary disease) Current Visit: Yes Status: Chronic Qualifiers: COPD type: COPD with acute exacerbation Qualified Code(s): J44.1 - Chronic obstructive pulmonary disease with (acute) exacerbation Plan to address problem: On 4 litres O2. O2 saturation 97%. Recommend xopenex and atrovent aerosol treatments q 8 hours. S/C Heparin Famotidine (7) Pleural effusion Current Visit: Yes Status: Acute Plan to address problem: Patient undergone right thoracentesis 05/26/22. Aspirated 2000 ml of blood tinged fluid. Pleural fluid WBC 1375, RBC 11,000. Pleural fluid protein and LDH results pending. Chest xray Post thoracentesis done 05/26/22 No evidence for pneumothorax after right thoracentesis. Cardiomegaly. Airspace opacity at the right lung base could represent atelectasis or infiltrate. (8) Cardiomyopathy Current Visit: Yes Status: Acute Plan to address problem: Management as per cardiology. (9) Oropharyngeal dysphagia Current Visit: Yes Status: Acute Plan to address problem: Aspiration precautions. (10) Seizures Current Visit: Yes Status: Chronic Plan to address problem: Question of Seizures. Management as per primary care and neurology.. Subjective Date of service: 05/27/22 Principal diagnosis: AHRF; AMS; Left SDH; ESRD on dialysis; COPD; H/O Cocaine abuse Interval history: This 56 year old Male transfered from [facility]. Patient developed severe respiratory distress at [facility]. Patient intubated and placed on mechanical ventilation. Patient transfered to [facility] ICU for further management and placement of central venous acess. Patient was on mechanical ventilation in the past. Patient was weaned from the ventilator and decanulated him. Patient agitated and developed severe respiratory distress, patient intubated and placed on assist control and volume control mechanical ventilation. Patient has history of HTN, Cardiomyopathy, ESRD on dialysis, COPD, History of Cocaine abuse Originally admitted to [facility] on 03/23/22 with altered mental status and CT of head obtained showed large Subdural hematoma with left shift.and also had hemoperitoneum.Patient undergone decompressive craniotomy.Patient also undergone paracentesis. Patient intubated and placed on mechanical ventilation subsequently has tracheostomy and PEG placement. Transfered to [facility] at that point. Patient weaned from the ventilator, subsequently decanulated. Patient tolerated decanulation well. Patient is on room air yesterday with 100% O2 saturation. Patient very anxious, May have seizure like activity, patients respiratory status detriorated, patient reintubated and placed on assist control mechanical ventilation. According to the chart, patient has history of smoking and Cocaine use. and has children. No known drug allergies. Patient sedated, not responding to verbal stimuli. Patient presently on assist control, volume control, rate 15, Tidal volume 450, FIO2 40%, PEEP 6 and O2 saturation running 100%. Recommend to decrease FIO2 to 30%. ABG on mechanical ventilation, AC/VC rate 15, Tidal volume 450, PEEP 6, FIO2 40% ABG pH 7.416 pH Units (7.350-7.450) 05/17/22 15:10 ABG pCO2 38.4 mm Hg 05/17/22 15:10 ABG pO2 191.6 mm Hg (80.0-90.0) H 05/17/22 15:10 ABG O2 Saturation 99.2 % (95.0-99.0) H 05/17/22 15:10 Recommend to decrease FIO2 to 30%. Patient eventually extubated. Patient transfered to [facility]. Patient sleepy and lethergic. On 4 litres O2. O2 saturation 97%. No acute respiratory distress. Patient afebrile. No leukocytosis. Blood pressure 94/74, pulse 114 , Respirations 21. Chest xray done 05/17/22 reported Layering left-sided effusion with associated opacity and mild right basilar atelectasis remain. No pneumothorax. Lines and tubes in satisfactory position. Patient undergone right thoracentesis 05/26/22. Aspirated 2000 ml of blood tinged fluid. Pleural fluid WBC 1375, RBC 11,000. Pleural fluid protein and LDH results pending. Chest xray Post thoracentesis done 05/26/22 No evidence for pneumothorax after right thoracentesis. Cardiomegaly. Airspace opacity at the right lung base could represent atelectasis or infiltrate. Follow-up is recommended. Patient is on Albuterol inhaler and famotidine. Recommend Nutritional evaluation. Objective Vital Signs - 12hr 05/27/22 05/27/22 05/27/22 01:01 02:01 03:01 Temperature Pulse Rate 100 H 107 H Pulse Rate [ From Monitor] Respiratory 19 16 Rate Blood Pressure 88/46 97/60 91/49 O2 Sat by Pulse 96 94 87 Oximetry 05/27/22 05/27/22 05/27/22 03:14 04:00 04:01 Temperature 97.7 F Pulse Rate 107 H 112 H Pulse Rate [ 101 H From Monitor] Respiratory 16 11 L Rate Blood Pressure 115/83 O2 Sat by Pulse 96 96 Oximetry 05/27/22 05/27/22 05/27/22 05:00 06:01 07:01 Temperature Pulse Rate 119 H 122 H 131 H Pulse Rate [ From Monitor] Respiratory 15 25 H 25 H Rate Blood Pressure 148/85 147/106 121/77 O2 Sat by Pulse 94 96 92 Oximetry 05/27/22 05/27/22 05/27/22 08:00 08:01 08:53 Temperature 97.8 F Pulse Rate 104 H 113 H Pulse Rate [ 115 H From Monitor] Respiratory 17 25 H Rate Blood Pressure 116/75 O2 Sat by Pulse 95 91 95 Oximetry 05/27/22 05/27/22 05/27/22 09:01 09:02 10:00 Temperature Pulse Rate 141 H 125 H 125 H Pulse Rate [ From Monitor] Respiratory 27 H 20 Rate Blood Pressure 111/77 111/77 96/73 O2 Sat by Pulse 100 98 Oximetry 05/27/22 05/27/22 11:00 12:00 Temperature 97.8 F Pulse Rate 115 H 140 H Pulse Rate [ 120 H From Monitor] Respiratory 20 21 Rate Blood Pressure 90/66 111/55 O2 Sat by Pulse 89 Oximetry Constitutional: no acute distress, asleep, other (middle aged male with mildly increased respiratory effort at rest) Eyes: non-icteric ENT: oropharynx moist Neck: supple, no JVD Effort: mildly labored Ascultation: Bilateral: diminished breath sounds, rales, rhonchi (scant) Percussion: Right: dull, Bilateral: not dull Cardiovascular: irregular rhythm, other (A-fib) Gastrointestinal: normoactive bowel sounds, soft, non-tender, non-distended (protuberant) Integumentary: normal, other (healed scalp craniotomy incision line) Extremities: no cyanosis, no edema, pink and warm, pulses normal, no ischemia or petechiae Neurologic: non-focal exam (grossly), pupils equal and round Psychiatric: other (Patient sleepy and lethergic.) CBC and BMP: 05/27/22 15:37 05/27/22 15:37 ABG, PT/INR, D-dimer: ABG ABG pH 7.494 pH Units (7.350-7.450) H 05/25/22 12:00 ABG pCO2 38.0 mm Hg 05/25/22 12:00 ABG pO2 61.1 mm Hg (80.0-90.0) L 05/25/22 12:00 ABG O2 Saturation 96.8 % (95.0-99.0) 05/25/22 12:00 Abnormal lab findings: Abnormal Labs 05/17/22 05/17/22 05/17/22 14:26 14:28 15:10 WBC 4.0 L RBC 2.86 L Hgb 8.4 L Hct 24.9 L RDW 20.9 H Plt Count Lymph % (Auto) Tillman % (Auto) 14.7 H Lymph # (Auto) 0.6 L Tillman # (Auto) Seg Neutrophils % ABG pH ABG pO2 191.6 H ABG HCO3 ABG O2 Saturation 99.2 H ABG Base Excess ABG Hemoglobin 9.0 L Oxyhemoglobin Sodium 126 L Potassium 6.0 H Chloride 91.0 L BUN 42 H Creatinine 6.9 H Glucose POC Glucose Calcium Phosphorus Magnesium ALT < 5 L Ammonia Total Protein 6.1 L Albumin 2.9 L Folate TSH Hepatitis C Antibody Crossmatch 05/18/22 05/18/22 05/18/22 04:13 04:20 06:00 WBC 3.0 L RBC 2.87 L Hgb 8.1 L Hct 25.3 L RDW 20.7 H Plt Count 127 L Lymph % (Auto) Tillman % (Auto) 15.1 H Lymph # (Auto) 0.5 L Tillman # (Auto) Seg Neutrophils % ABG pH ABG pO2 158.7 H ABG HCO3 ABG O2 Saturation ABG Base Excess ABG Hemoglobin 9.4 L Oxyhemoglobin Sodium 128 L Potassium 6.8 H* Chloride 93.7 L BUN 48 H Creatinine 6.8 H Glucose POC Glucose Calcium Phosphorus Magnesium ALT Ammonia Total Protein Albumin Folate TSH Hepatitis C Antibody Crossmatch 05/18/22 05/18/22 05/18/22 17:49 18:10 23:15 WBC RBC Hgb Hct RDW Plt Count Lymph % (Auto) Tillman % (Auto) Lymph # (Auto) [place]man # (Auto) Seg Neutrophils % ABG pH ABG pO2 ABG HCO3 ABG O2 Saturation ABG Base Excess ABG Hemoglobin Oxyhemoglobin Sodium Potassium Chloride BUN Creatinine Glucose POC Glucose 144 H 145 H Calcium Phosphorus Magnesium ALT Ammonia Total Protein Albumin Folate TSH Hepatitis C Antibody Reactive A Crossmatch 05/19/22 05/19/22 05/19/22 03:18 03:18 05:21 WBC 2.6 L RBC 2.94 L Hgb 8.5 L Hct 26.2 L RDW 20.3 H Plt Count 137 L Lymph % (Auto) Tillman % (Auto) Lymph # (Auto) [place]man # (Auto) Seg Neutrophils % ABG pH ABG pO2 ABG HCO3 ABG O2 Saturation ABG Base Excess ABG Hemoglobin Oxyhemoglobin Sodium Potassium 5.1 H D Chloride BUN 34 H Creatinine 4.9 H Glucose 130 H POC Glucose 143 H Calcium 8.3 L Phosphorus Magnesium ALT Ammonia Total Protein Albumin Folate TSH Hepatitis C Antibody Crossmatch 05/19/22 05/19/22 05/20/22 11:23 17:48 00:01 WBC RBC Hgb Hct RDW Plt Count Lymph % (Auto) [place]man % (Auto) Lymph # (Auto) [place]man # (Auto) Seg Neutrophils % ABG pH ABG pO2 ABG HCO3 ABG O2 Saturation ABG Base Excess ABG Hemoglobin Oxyhemoglobin Sodium Potassium Chloride BUN Creatinine Glucose POC Glucose 127 H 156 H 142 H Calcium Phosphorus Magnesium ALT Ammonia Total Protein Albumin Folate TSH Hepatitis C Antibody Crossmatch 05/20/22 05/20/22 05/20/22 04:31 04:31 17:44 WBC RBC 2.72 L Hgb 7.8 L Hct 24.1 L RDW 20.9 H Plt Count Lymph % (Auto) Tillman % (Auto) Lymph # (Auto) [place]man # (Auto) Seg Neutrophils % ABG pH ABG pO2 ABG HCO3 ABG O2 Saturation ABG Base Excess ABG Hemoglobin Oxyhemoglobin Sodium Potassium 5.4 H Chloride 96.5 L BUN 53 H Creatinine 6.7 H Glucose 115 H POC Glucose 132 H Calcium 8.1 L Phosphorus 7.90 H Magnesium ALT Ammonia Total Protein Albumin Folate TSH Hepatitis C Antibody Crossmatch 05/21/22 05/21/22 05/21/22 04:13 07:50 11:43 WBC RBC Hgb Hct RDW Plt Count Lymph % (Auto) [place]man % (Auto) Lymph # (Auto) [place]man # (Auto) Seg Neutrophils % ABG pH ABG pO2 ABG HCO3 ABG O2 Saturation ABG Base Excess ABG Hemoglobin Oxyhemoglobin Sodium Potassium Chloride 97.7 L BUN 37 H Creatinine 4.9 H Glucose POC Glucose 111 H 109 H Calcium 8.0 L Phosphorus Magnesium ALT Ammonia Total Protein Albumin Folate TSH Hepatitis C Antibody Crossmatch 05/21/22 05/21/22 05/22/22 17:00 20:52 03:59 WBC RBC 2.31 L Hgb 6.8 L Hct 20.3 L RDW 20.4 H Plt Count 103 L Lymph % (Auto) Tillman % (Auto) Lymph # (Auto) [place]man # (Auto) Seg Neutrophils % ABG pH ABG pO2 ABG HCO3 ABG O2 Saturation ABG Base Excess ABG Hemoglobin Oxyhemoglobin Sodium Potassium Chloride BUN Creatinine Glucose POC Glucose 116 H 121 H Calcium Phosphorus Magnesium ALT Ammonia Total Protein Albumin Folate TSH Hepatitis C Antibody Crossmatch 05/22/22 05/22/22 05/22/22 03:59 06:00 07:33 WBC RBC Hgb Hct RDW Plt Count Lymph % (Auto) [place]man % (Auto) Lymph # (Auto) [place]man # (Auto) Seg Neutrophils % ABG pH ABG pO2 ABG HCO3 ABG O2 Saturation ABG Base Excess ABG Hemoglobin Oxyhemoglobin Sodium 134 L Potassium Chloride 94.7 L BUN 44 H Creatinine 5.7 H Glucose POC Glucose 135 H Calcium 7.9 L Phosphorus Magnesium 1.60 L ALT Ammonia Total Protein Albumin Folate TSH Hepatitis C Antibody Crossmatch See Detail 05/22/22 05/22/22 05/22/22 16:55 21:28 22:53 WBC RBC 2.70 L Hgb 7.9 L Hct 24.1 L RDW 20.3 H Plt Count 110 L Lymph % (Auto) [place]man % (Auto) Lymph # (Auto) [place]man # (Auto) Seg Neutrophils % ABG pH ABG pO2 ABG HCO3 ABG O2 Saturation ABG Base Excess ABG Hemoglobin Oxyhemoglobin Sodium Potassium Chloride BUN Creatinine Glucose POC Glucose 146 H 126 H Calcium Phosphorus Magnesium ALT Ammonia Total Protein Albumin Folate TSH Hepatitis C Antibody Crossmatch 05/22/22 05/22/22 05/23/22 22:53 22:53 04:00 WBC RBC 2.84 L Hgb 8.4 L Hct 25.5 L RDW 20.5 H Plt Count 108 L Lymph % (Auto) Tillman % (Auto) Lymph # (Auto) [place]man # (Auto) Seg Neutrophils % ABG pH ABG pO2 ABG HCO3 ABG O2 Saturation ABG Base Excess ABG Hemoglobin Oxyhemoglobin Sodium 136 L Potassium Chloride 97.6 L BUN 30 H Creatinine 3.9 H Glucose 132 H POC Glucose Calcium Phosphorus 2.20 L D Magnesium ALT Ammonia Total Protein Albumin Folate TSH Hepatitis C Antibody Crossmatch 05/23/22 05/24/22 05/24/22 04:17 05:15 08:15 WBC RBC 2.79 L Hgb 8.0 L Hct 24.6 L RDW 20.2 H Plt Count 133 L Lymph % (Auto) 6.0 L Tillman % (Auto) 9.7 H Lymph # (Auto) 0.5 L [place]man # (Auto) 0.9 H Seg Neutrophils % 82.8 H ABG pH ABG pO2 ABG HCO3 ABG O2 Saturation ABG Base Excess ABG Hemoglobin Oxyhemoglobin Sodium 134 L Potassium 5.8 H D Chloride 96.4 L BUN 32 H 48 H Creatinine 4.1 H 5.4 H Glucose 107 H POC Glucose Calcium Phosphorus 2.30 L Magnesium ALT Ammonia Total Protein Albumin Folate [facility] Hepatitis C Antibody Crossmatch 05/24/22 05/25/22 05/25/22 08:15 12:00 12:57 WBC RBC 2.33 L Hgb 7.0 L Hct 22.0 L RDW 20.5 H Plt Count 134 L Lymph % (Auto) 10.8 L Tillman % (Auto) 13.1 H Lymph # (Auto) 0.6 L [place]man # (Auto) Seg Neutrophils % 74.5 H ABG pH 7.494 H ABG pO2 61.1 L ABG HCO3 28.5 H ABG O2 Saturation ABG Base Excess 4.9 H ABG Hemoglobin 6.8 L Oxyhemoglobin 94.5 L Sodium Potassium Chloride BUN Creatinine Glucose POC Glucose Calcium Phosphorus Magnesium ALT Ammonia 24.0 L Total Protein Albumin Folate TSH Hepatitis C Antibody Crossmatch 05/25/22 05/26/22 05/26/22 12:57 04:11 04:11 WBC RBC 2.86 L Hgb 8.2 L Hct 25.7 L RDW 19.8 H Plt Count Lymph % (Auto) [place]man % (Auto) Lymph # (Auto) [place]man # (Auto) Seg Neutrophils % ABG pH ABG pO2 ABG HCO3 ABG O2 Saturation ABG Base Excess ABG Hemoglobin Oxyhemoglobin Sodium 136 L Potassium 5.1 H 5.3 H Chloride 97.0 L 97.8 L BUN 40 H 46 H Creatinine 5.4 H 5.7 H Glucose POC Glucose Calcium Phosphorus Magnesium ALT Ammonia Total Protein Albumin Folate TSH Hepatitis C Antibody Crossmatch 05/27/22 05/27/22 04:33 04:33 WBC RBC Hgb Hct RDW Plt Count Lymph % (Auto) [place]man % (Auto) Lymph # (Auto) [place]man # (Auto) Seg Neutrophils % ABG pH ABG pO2 ABG HCO3 ABG O2 Saturation ABG Base Excess ABG Hemoglobin Oxyhemoglobin Sodium Potassium Chloride BUN Creatinine Glucose POC Glucose Calcium Phosphorus Magnesium ALT Ammonia Total Protein Albumin Folate 6.08 L TSH 8.200 H Hepatitis C Antibody Crossmatch Chest x-ray: report reviewed, image reviewed Additional Studies: CHEST 1 VIEW 05/26/2022 11:42 AM INDICATION / CLINICAL INFORMATION: recent RT thora, effusion. COMPARISON: 05/24/2022 FINDINGS: SUPPORT DEVICES: None. HEART / MEDIASTINUM: Stable cardiomegaly LUNGS / PLEURA: Recent right thoracentesis was performed with near complete evacuation of the right pleural fluid. Focal opacity persists at the right lung base which could represent atelectatic changes or infiltrate. The left lung is generally clear. No pneumothorax. ADDITIONAL FINDINGS: No significant additional findings. IMPRESSION: 1. No evidence for pneumothorax after right thoracentesis. 2. Cardiomegaly. 3. Airspace opacity at the right lung base could represent atelectasis or infil trate. Follow-up is recommended. Allied health notes reviewed: nursing
--- NOTE | 2022-05-27 14:45 | Progress Note ---
Assessment and Plan - Patient Problems (1) Rapid atrial fibrillation Current Visit: Yes Status: Acute Plan to address problem: Patient has much better atrial fibrillation rate control with the addition of amiodarone. Subjective Date of service: 05/27/22 Principal diagnosis: AHRF; AMS; Left SDH; ESRD on dialysis; COPD; H/O Cocaine abuse Interval history: Patient is resting comfortably in bed, no cardiac complaints, no new cardiac events reported. On nuclear monitoring technician, there is well-controlled atrial fibrillation in the 90s to low 100s. Objective Vital Signs Temp Pulse Pulse Resp BP Pulse Ox Pulse Ox 05/27/22 14:01 113 H 19 107/55 95 05/27/22 13:01 144 H 22 99/57 95 05/27/22 12:00 97.8 F 140 H 120 H 21 111/55 89 05/27/22 11:00 115 H 20 90/66 05/27/22 10:00 125 H 20 96/73 98 05/27/22 09:02 125 H 111/77 05/27/22 09:01 141 H 27 H 111/77 100 05/27/22 08:53 95 05/27/22 08:01 113 H 25 H 116/75 91 05/27/22 08:00 97.8 F 104 H 115 H 17 95 05/27/22 07:01 131 H 25 H 121/77 92 05/27/22 06:01 122 H 25 H 147/106 96 05/27/22 05:00 119 H 15 148/85 94 05/27/22 04:01 112 H 11 L 115/83 96 05/27/22 04:00 97.7 F 101 H 16 96 05/27/22 03:14 107 H 05/27/22 03:01 91/49 87 05/27/22 02:01 107 H 16 97/60 94 05/27/22 01:01 100 H 19 88/46 96 05/27/22 00:00 98 F 103 H 19 111/61 96 05/26/22 23:15 98.0 F 102 H 19 101/61 98 05/26/22 23:11 92 H 21 99 05/26/22 23:03 111 H 05/26/22 23:01 100 H 13 109/60 99 05/26/22 23:00 100 H 17 109/60 100 05/26/22 22:45 106 H 106/67 05/26/22 22:30 111 H 98/61 05/26/22 22:15 116 H 97/61 05/26/22 22:00 120 H 16 102/61 99 05/26/22 21:45 102 H 94/61 05/26/22 21:30 87 101/66 05/26/22 21:15 75 121/86 05/26/22 21:00 101 H 20 101/78 100 05/26/22 20:45 112 H 108/83 05/26/22 20:30 111 H 100/77 05/26/22 20:27 95 05/26/22 20:15 113 H 110/70 05/26/22 20:01 101 H 19 114/70 100 05/26/22 20:00 97.7 F 110 H 105 H 22 108/64 94 05/26/22 19:45 110 H 114/70 05/26/22 19:30 104 H 106/80 05/26/22 19:15 106 H 108/78 05/26/22 19:00 98.9 F 135 H 17 116/84 95 99 05/26/22 18:01 118 H 23 112/76 98 05/26/22 17:00 113 H 18 112/79 93 05/26/22 16:53 99.2 F 05/26/22 16:00 110 H 146 H 22 112/76 95 05/26/22 15:00 103 H 19 102/72 95 - Physical Examination General: No Apparent Distress HEENT: Positive: PERRL Neck: Positive: neck supple Cardiac: Positive: irregularly irregular Lungs: Positive: Decreased Breath Sounds Neuro: Positive: Weakness (Generalized lethargy) Abdomen: Positive: Soft Skin: Positive: Clear Extremities: Absent: edema - Allied health notes Allied health notes reviewed: nursing
--- NOTE | 2022-05-27 16:24 | Progress Note ---
Assessment and Plan - Patient Problems (1) Hypertensive chronic kidney disease with stage 5 chronic kidney disease or end stage renal disease Current Visit: Yes Status: Acute Plan to address problem: Follow-up blood pressure on current medications (2) Pleural effusion, right Current Visit: Yes Status: Acute Plan to address problem: Status post thoracentesis with 2 L fluid drained (3) Chronic systolic heart failure Current Visit: Yes Status: Acute Plan to address problem: Continue with fluid removal on dialysis. Continue beta-carissa and angiotensin receptor carissa (4) Acute respiratory failure with hypoxia Current Visit: Yes Status: Acute Plan to address problem: Improved postthoracentesis. Continue management by pulmonary. (5) Anemia in CKD (chronic kidney disease) Current Visit: Yes Status: Acute Plan to address problem: Given erythropoietin on dialysis (6) Hyperkalemia Current Visit: Yes Status: Acute Plan to address problem: Hemodialysis on a low potassium bath and then follow-up potassium (7) ESRD on dialysis Current Visit: Yes Status: Chronic Plan to address problem: Continue hemodialysis on a Wednesday, and Wednesday schedule Subjective Date of service: 05/27/22 Principal diagnosis: AHRF; AMS; Left SDH; ESRD on dialysis; COPD; H/O Cocaine abuse Interval history: Patient seen lying in bed. On oxygen via nasal cannula. Patient still confused but awake Objective - Exam Narrative Exam: Nonrebreather mask Middle-aged male lying in bed in no acute distress HEENT: NCAT, pink conjunctiva, anicteric sclera Neck: Supple, no venous distention CVS: S1S2 RRR with no murmur, rub or gallop Chest: Coarse breath sounds diminished breath sounds right lower zone, improved Abdomen: Protuberant, soft, ostomy left lower quadrant, nontender, no organomegaly, bowel sounds are present Extremities: No edema, muscle wasting Genitourinary deferred Skin warm and dry Neuro: Awake, alert no focal deficits - Vital Signs Vital signs: Vital Signs - 12hr 05/27/22 05/27/22 05/27/22 05:00 06:01 07:01 Temperature Pulse Rate 119 H 122 H 131 H Pulse Rate [ From Monitor] Respiratory 15 25 H 25 H Rate Blood Pressure 148/85 147/106 121/77 O2 Sat by Pulse 94 96 92 Oximetry 05/27/22 05/27/22 05/27/22 08:00 08:01 08:53 Temperature 97.8 F Pulse Rate 104 H 113 H Pulse Rate [ 115 H From Monitor] Respiratory 17 25 H Rate Blood Pressure 116/75 O2 Sat by Pulse 95 91 95 Oximetry 05/27/22 05/27/22 05/27/22 09:01 09:02 10:00 Temperature Pulse Rate 141 H 125 H 125 H Pulse Rate [ From Monitor] Respiratory 27 H 20 Rate Blood Pressure 111/77 111/77 96/73 O2 Sat by Pulse 100 98 Oximetry 05/27/22 05/27/22 05/27/22 11:00 12:00 13:01 Temperature 97.8 F Pulse Rate 115 H 140 H 144 H Pulse Rate [ 120 H From Monitor] Respiratory 20 21 22 Rate Blood Pressure 90/66 111/55 99/57 O2 Sat by Pulse 89 95 Oximetry 05/27/22 14:01 Temperature Pulse Rate 113 H Pulse Rate [ From Monitor] Respiratory 19 Rate Blood Pressure 107/55 O2 Sat by Pulse 95 Oximetry - Lab 05/26/22 04:11 05/26/22 04:11 Most recent lab results ABG pH 7.494 pH Units (7.350-7.450) H 05/25/22 12:00 ABG pCO2 38.0 mm Hg 05/25/22 12:00 ABG pO2 61.1 mm Hg (80.0-90.0) L 05/25/22 12:00 ABG HCO3 28.5 mmol/L (20.0-26.0) H 05/25/22 12:00 ABG O2 Saturation 96.8 % (95.0-99.0) 05/25/22 12:00 Calcium 9.1 mg/dL (8.4-10.2) 05/26/22 04:11 Phosphorus 3.90 mg/dL (2.5-4.5) D 05/24/22 05:15 Magnesium 2.20 mg/dL (1.7-2.3) 05/24/22 05:15 Medications & Allergies - Medications Allergies/Adverse Reactions: Allergies No Known Allergies Allergy (Unverified 05/17/22 15:36) Home Medications: Home Medications Medication Instructions Recorded Confirmed Last Taken Type ALPRAZolam 0.5 mg PO BID 05/19/22 05/19/22 Unknown History Clopidogrel [Plavix] 75 mg PO QDAY 05/19/22 05/19/22 Unknown History Losartan [Cozaar] 100 mg PO QDAY 05/19/22 05/19/22 Unknown History Metoprolol [Lopressor TAB] 100 mg PO BID 05/19/22 05/19/22 Unknown History NIFEdipine [Nifedipine ER] 60 mg PO BID 05/19/22 05/19/22 Unknown History Oxycodone HCl/Acetaminophen 1 each PO Q8H PRN 05/19/22 05/19/22 Unknown History [Oxycodone-Acetaminophen 10-325] QUEtiapine [SEROquel] 50 mg PO BID 05/19/22 05/19/22 Unknown History Trelegy Ellipta 100-62.5-25 100 mcg INHALATION DAILY 05/19/22 05/19/22 Unknown History dilTIAZem [CarDIZEM] 180 mg PO BID 05/19/22 05/19/22 Unknown History Active Medications: Generic Name Dose Route Start Last Admin Trade Name Freq PRN Reason Stop Dose Admin Acetaminophen 650 mg 05/17/22 14:26 05/24/22 01:13 Acetaminophen 325 Mg Tab PO 650 mg Q4H PRN Administration Pain MILD(1-3)/Fever >100.5/DYER Albumin Human 25 gm 05/18/22 09:10 05/22/22 14:54 Albumin Human 25% (25 Gm/100 Ml) Inj IV 25 gm TOM PRN Administration Hypotension Albuterol 2.5 mg 05/18/22 06:02 Albuterol 2.5 Mg/3 Ml Nebu IH Q3HRT PRN Wheezing Alprazolam 0.5 mg 05/23/22 12:50 05/27/22 10:10 Alprazolam 0.5 Mg Tab PO 0.5 mg Q8HR PRN Administration Anxiety/agitation Amiodarone HCl 200 mg 05/26/22 14:00 05/27/22 10:07 Amiodarone 200 Mg Tab PO 200 mg BID DAQUAN Administration Lipase/Protease/Amylase 1 each 05/26/22 11:06 Lipase 10,500/Protease 25,000/Amylase 43,750 (Units) Dr Martinez FEEDTUBE PRN PRN For Clogged Feeding Tube Aspirin 81 mg 05/21/22 10:00 05/26/22 12:20 Aspirin Ec 81 Mg Tab PO 81 mg QDAY DAQUAN Administration Dextrose 50 ml 05/18/22 15:00 Dextrose 50% In Water (25gm) 50 Ml Syringe IV Q30MIN PRN Hypoglycemia Protocol Diltiazem HCl 60 mg 05/25/22 14:00 05/27/22 09:02 Diltiazem 60 Mg Tab PO 60 mg TID DAQUAN Administration Diphenhydramine HCl 25 mg 05/20/22 13:30 05/24/22 23:31 Diphenhydramine 25 Mg Cap PO 25 mg Q6H PRN Administration Itching Docusate Sodium 100 mg 05/22/22 10:00 05/26/22 21:09 Docusate Sodium 100 Mg Cap PO 100 mg BID DAQUAN Administration Epoetin Jacinto-epbx 10,000 unit 05/18/22 09:10 05/26/22 20:11 Epoetin Jacinto-Epbx 10,000 Unit/1 Ml Vial IV 10,000 unit TOM PRN Administration hemodialysis Famotidine 20 mg 05/20/22 10:00 05/27/22 10:07 Famotidine 20 Mg Tab PO 20 mg QDAY DAQUAN Administration Sodium Chloride 100 mls @ 999 mls/hr 05/24/22 08:11 Nacl 0.9% IV TOM PRN Hypotension Losartan Potassium 50 mg 05/26/22 10:00 05/26/22 12:20 Losartan 50 Mg Tab PO Not Given QDAY [facility] Metoprolol Tartrate 100 mg 05/25/22 22:00 05/26/22 21:09 Metoprolol Tartrate 100 Mg Tab PO 100 mg BID DAQUAN Administration Ondansetron HCl 4 mg 05/24/22 17:30 Ondansetron 4 Mg/2 Ml Inj IV Q8H PRN Nausea And Vomiting Oxycodone/Acetaminophen 1 tab 05/21/22 11:00 05/26/22 11:31 Oxycodone /Acetaminophen 5-325mg Tab PO 1 tab Q6H PRN Administration Pain, Moderate (4-6) Quetiapine Fumarate 150 mg 05/24/22 18:00 05/27/22 10:07 Quetiapine 100 Mg Tab PO 150 mg QDAY DAQUAN Administration Quetiapine Fumarate 200 mg 05/24/22 17:30 05/26/22 21:09 Quetiapine 100 Mg Tab PO 200 mg QHS DAQUAN Administration Senna/Docusate Sodium 1 tab 05/22/22 22:00 05/26/22 21:09 Sennosides/Docusate Sodium 8.6/50 Mg Tab PO 1 tab QHS DAQUAN Administration Simple Syrup 15 ml 05/26/22 11:06 Simple Syrup 15 Ml FEEDTUBE PRN PRN Hypoglycemia Simple Syrup 30 ml 05/26/22 11:06 Simple Syrup 15 Ml FEEDTUBE PRN PRN Hypoglycemia Sodium Bicarbonate 325 mg 05/26/22 11:06 Sodium Bicarbonate 325 Mg Tab FEEDTUBE PRN PRN For Clogged Feeding Tube Sodium Chloride 10 ml 05/17/22 22:00 05/27/22 10:08 Sodium Chloride 0.9% 10 Ml Flush Syringe IV 10 ml BID DAQUAN Administration Sodium Chloride 10 ml 05/17/22 14:26 Sodium Chloride 0.9% 10 Ml Flush Syringe IV PRN PRN LINE FLUSH
[2022-05-27] MEDS: LOSARTAN 50 MG TAB PO SCH (16:42)
[2022-05-27] MEDS: METOPROLOL TARTRATE 100 MG TAB PO SCH ×2 (16:42→21:55)
[2022-05-27] MEDS: DOCUSATE SODIUM 100 MG CAP PO SCH ×2 (16:42→21:54)
[2022-05-27] MEDS: ASPIRIN EC 81 MG TAB PO SCH (16:47)
[2022-05-27 17:40] LABS: Hematocrit 25.4 % (35.5-45.6); Hemoglobin 8.3 gm/dl (11.8-15.2); Mean Corpuscular HGB Conc 33 % (32-34); Mean Corpuscular Volume 88 fl (84-94); Platelet Count 176 K/mm3 (140-440); Red Cell Distribution Width 19.7 % (13.2-15.2)
[2022-05-27 17:51] LABS: Calcium 8.9 mg/dL (8.4-10.2)
[2022-05-27] MEDS: SENNOSIDES/DOCUSATE SODIUM 8.6/50 MG TAB PO SCH (21:55)
--- NOTE | 2022-05-28 09:27 | Magnetic Resonance Report ---
MRI BRAIN 05/27/2022 INDICATION / CLINICAL INFORMATION: AMS. TECHNIQUE: Multiplanar, multisequence MR images of the brain were obtained. COMPARISON: None available. FINDINGS: BRAIN / INTRACRANIAL CONTENTS: Unenhanced MR images of the brain demonstrate no evidence of acute abn ormality. Left frontal cortical encephalomalacia and evidence of remote hemorrhagic changes are noted, with hem osiderin deposition and mixed signal within the left frontal lobe parenchyma. Surrounding reactive gl iosis is present. There is no evidence of acute hemorrhage. There is no evidence to suggest underlying mass lesion or m ass effect. There is some mixed attenuation material present in the left subdural space overlying the left fronta l and anterior parietal lobes, which may be evidence of prior subdural hematoma. Patient has had prio r left frontoparietal craniotomy, overlying this area of subdural fluid or thickening. The overall ap pearance suggests prior hemorrhagic or traumatic lesion, with operative treatment EXTRACRANIAL: Unremarkable CRANIOCERVICAL JUNCTION: No significant abnormality. VASCULAR FLOW-VOIDS: No significant abnormality. IMPRESSION: Postoperative change. Evidence of prior left frontal hemorrhage. Tiny residual subdural fluid. No ev idence of acute ischemic injury. Signer Name: Vahid Miles MD Signed: 05/28/2022 9:22 AM Workstation Name: [id number]
[2022-05-28] MEDS: dilTIAZem 60 MG TAB PO SCH ×3 (10:28→20:45)
[2022-05-28] MEDS: AMIODARONE 200 MG TAB PO SCH ×2 (10:28→21:17)
[2022-05-28] MEDS: QUEtiapine 100 MG TAB PO SCH ×2 (10:28→21:17)
[2022-05-28] MEDS: DOCUSATE SODIUM 100 MG CAP PO SCH ×2 (10:29→21:17)
[2022-05-28] MEDS: FAMOTIDINE 20 MG TAB PO SCH (10:29)
[2022-05-28] MEDS: ASPIRIN EC 81 MG TAB PO SCH (10:29)
[2022-05-28] MEDS: METOPROLOL TARTRATE 100 MG TAB PO SCH ×2 (10:35→21:17)
[2022-05-28] MEDS: LOSARTAN 50 MG TAB PO SCH (10:38)
--- NOTE | 2022-05-28 11:23 | Progress Note ---
Assessment and Plan - Patient Problems (1) Hypertensive chronic kidney disease with stage 5 chronic kidney disease or end stage renal disease Current Visit: Yes Status: Acute Plan to address problem: Follow-up blood pressure on current medications (2) Pleural effusion, right Current Visit: Yes Status: Acute Plan to address problem: Status post thoracentesis with 2 L fluid drained (3) Chronic systolic heart failure Current Visit: Yes Status: Acute Plan to address problem: Continue with fluid removal on dialysis. Continue beta-carissa and angiotensin receptor carissa (4) Acute respiratory failure with hypoxia Current Visit: Yes Status: Acute Plan to address problem: Improved postthoracentesis. Continue management by pulmonary. (5) Anemia in CKD (chronic kidney disease) Current Visit: Yes Status: Acute Plan to address problem: Given erythropoietin on dialysis (6) Hyperkalemia Current Visit: Yes Status: Acute Plan to address problem: Hemodialysis on a low potassium bath and follow-up potassium (7) ESRD on dialysis Current Visit: Yes Status: Chronic Plan to address problem: Continue hemodialysis on a Wednesday, and Wednesday schedule Subjective Date of service: 05/28/22 Principal diagnosis: AHRF; AMS; Left SDH; ESRD on dialysis; COPD; H/O Cocaine abuse Interval history: Patient seen lying in bed. On oxygen via nasal cannula. Patient still confused but awake Objective - Exam Narrative Exam: Nonrebreather mask Middle-aged male lying in bed in no acute distress HEENT: NCAT, pink conjunctiva, anicteric sclera Neck: Supple, no venous distention CVS: S1S2 RRR with no murmur, rub or gallop Chest: Coarse breath sounds diminished breath sounds right lower zone, improved Abdomen: Protuberant, soft, ostomy left lower quadrant, nontender, no organomegaly, bowel sounds are present Extremities: No edema, muscle wasting Genitourinary deferred Skin warm and dry Neuro: Awake, alert no focal deficits - Vital Signs Vital signs: Vital Signs - 12hr 05/28/22 05/28/22 05/28/22 00:00 01:00 02:00 Temperature 98.0 F Pulse Rate 89 96 H 86 Pulse Rate [ 89 From Monitor] Respiratory 20 19 17 Rate Blood Pressure 78/53 110/79 102/71 O2 Sat by Pulse 93 100 99 Oximetry 05/28/22 05/28/22 05/28/22 03:00 04:00 05:00 Temperature 97.8 F Pulse Rate 96 H 81 96 H Pulse Rate [ 81 From Monitor] Respiratory 17 18 21 Rate Blood Pressure 92/59 83/58 114/69 O2 Sat by Pulse 98 99 97 Oximetry 05/28/22 05/28/22 05/28/22 06:00 07:00 08:00 Temperature Pulse Rate 100 H 95 H 112 H Pulse Rate [ From Monitor] Respiratory 16 18 18 Rate Blood Pressure 86/62 134/87 102/80 O2 Sat by Pulse 100 96 100 Oximetry 05/28/22 05/28/22 05/28/22 09:00 10:00 10:28 Temperature Pulse Rate 105 H 108 H 125 H Pulse Rate [ From Monitor] Respiratory 17 17 Rate Blood Pressure 94/64 108/85 107/83 O2 Sat by Pulse 100 97 Oximetry 05/28/22 10:35 Temperature Pulse Rate 130 H Pulse Rate [ From Monitor] Respiratory Rate Blood Pressure 104/72 O2 Sat by Pulse Oximetry - Lab 05/27/22 15:37 05/27/22 15:37 Most recent lab results ABG pH 7.494 pH Units (7.350-7.450) H 05/25/22 12:00 ABG pCO2 38.0 mm Hg 05/25/22 12:00 ABG pO2 61.1 mm Hg (80.0-90.0) L 05/25/22 12:00 ABG HCO3 28.5 mmol/L (20.0-26.0) H 05/25/22 12:00 ABG O2 Saturation 96.8 % (95.0-99.0) 05/25/22 12:00 Calcium 8.9 mg/dL (8.4-10.2) 05/27/22 15:37 Phosphorus 3.90 mg/dL (2.5-4.5) D 05/24/22 05:15 Magnesium 2.20 mg/dL (1.7-2.3) 05/24/22 05:15 Medications & Allergies - Medications Allergies/Adverse Reactions: Allergies No Known Allergies Allergy (Unverified 05/17/22 15:36) Home Medications: Home Medications Medication Instructions Recorded Confirmed Last Taken Type ALPRAZolam 0.5 mg PO BID 05/19/22 05/19/22 Unknown History Clopidogrel [Plavix] 75 mg PO QDAY 05/19/22 05/19/22 Unknown History Losartan [Cozaar] 100 mg PO QDAY 05/19/22 05/19/22 Unknown History Metoprolol [Lopressor TAB] 100 mg PO BID 05/19/22 05/19/22 Unknown History NIFEdipine [Nifedipine ER] 60 mg PO BID 05/19/22 05/19/22 Unknown History Oxycodone HCl/Acetaminophen 1 each PO Q8H PRN 05/19/22 05/19/22 Unknown History [Oxycodone-Acetaminophen 10-325] QUEtiapine [SEROquel] 50 mg PO BID 05/19/22 05/19/22 Unknown History Trelegy Ellipta 100-62.5-25 100 mcg INHALATION DAILY 05/19/22 05/19/22 Unknown History dilTIAZem [CarDIZEM] 180 mg PO BID 05/19/22 05/19/22 Unknown History Active Medications: Generic Name Dose Route Start Last Admin Trade Name Freq PRN Reason Stop Dose Admin Acetaminophen 650 mg 05/17/22 14:26 05/24/22 01:13 Acetaminophen 325 Mg Tab PO 650 mg Q4H PRN Administration Pain MILD(1-3)/Fever >100.5/DYER Albumin Human 25 gm 05/18/22 09:10 05/22/22 14:54 Albumin Human 25% (25 Gm/100 Ml) Inj IV 25 gm TOM PRN Administration Hypotension Albuterol 2.5 mg 05/18/22 06:02 Albuterol 2.5 Mg/3 Ml Nebu IH Q3HRT PRN Wheezing Alprazolam 0.5 mg 05/23/22 12:50 05/27/22 10:10 Alprazolam 0.5 Mg Tab PO 0.5 mg Q8HR PRN Administration Anxiety/agitation Amiodarone HCl 200 mg 05/26/22 14:00 05/28/22 10:28 Amiodarone 200 Mg Tab PO 200 mg BID DAQUAN Administration Lipase/Protease/Amylase 1 each 05/26/22 11:06 Lipase 10,500/Protease 25,000/Amylase 43,750 (Units) Dr Martinez FEEDTUBE PRN PRN For Clogged Feeding Tube Aspirin 81 mg 05/21/22 10:00 05/28/22 10:29 Aspirin Ec 81 Mg Tab PO 81 mg QDAY DAQUAN Administration Dextrose 50 ml 05/18/22 15:00 Dextrose 50% In Water (25gm) 50 Ml Syringe IV Q30MIN PRN Hypoglycemia Protocol Diltiazem HCl 60 mg 05/25/22 14:00 05/28/22 10:28 Diltiazem 60 Mg Tab PO 60 mg TID DAQUAN Administration Diphenhydramine HCl 25 mg 05/20/22 13:30 05/24/22 23:31 Diphenhydramine 25 Mg Cap PO 25 mg Q6H PRN Administration Itching Docusate Sodium 100 mg 05/22/22 10:00 05/28/22 10:29 Docusate Sodium 100 Mg Cap PO 100 mg BID DAQUAN Administration Epoetin Jacinto-epbx 10,000 unit 05/18/22 09:10 05/26/22 20:11 Epoetin Jacinto-Epbx 10,000 Unit/1 Ml Vial IV 10,000 unit TOM PRN Administration hemodialysis Famotidine 20 mg 05/20/22 10:00 05/28/22 10:29 Famotidine 20 Mg Tab PO 20 mg QDAY DAQUAN Administration Sodium Chloride 100 mls @ 999 mls/hr 05/24/22 08:11 Nacl 0.9% IV TOM PRN Hypotension Losartan Potassium 50 mg 05/26/22 10:00 05/28/22 10:38 Losartan 50 Mg Tab PO Not Given QDAY [facility] Metoprolol Tartrate 100 mg 05/25/22 22:00 05/28/22 10:35 Metoprolol Tartrate 100 Mg Tab PO 100 mg BID DAQUAN Administration Ondansetron HCl 4 mg 05/24/22 17:30 Ondansetron 4 Mg/2 Ml Inj IV Q8H PRN Nausea And Vomiting Oxycodone/Acetaminophen 1 tab 05/21/22 11:00 05/26/22 11:31 Oxycodone /Acetaminophen 5-325mg Tab PO 1 tab Q6H PRN Administration Pain, Moderate (4-6) Quetiapine Fumarate 150 mg 05/24/22 18:00 05/28/22 10:28 Quetiapine 100 Mg Tab PO 150 mg QDAY DAQUAN Administration Quetiapine Fumarate 200 mg 05/24/22 17:30 05/27/22 21:55 Quetiapine 100 Mg Tab PO 200 mg QHS DAQUAN Administration Senna/Docusate Sodium 1 tab 05/22/22 22:00 05/27/22 21:55 Sennosides/Docusate Sodium 8.6/50 Mg Tab PO 1 tab QHS DAQUAN Administration Simple Syrup 15 ml 05/26/22 11:06 Simple Syrup 15 Ml FEEDTUBE PRN PRN Hypoglycemia Simple Syrup 30 ml 05/26/22 11:06 Simple Syrup 15 Ml FEEDTUBE PRN PRN Hypoglycemia Sodium Bicarbonate 325 mg 05/26/22 11:06 Sodium Bicarbonate 325 Mg Tab FEEDTUBE PRN PRN For Clogged Feeding Tube Sodium Chloride 10 ml 05/17/22 22:00 05/28/22 10:35 Sodium Chloride 0.9% 10 Ml Flush Syringe IV 10 ml BID DAQUAN Administration Sodium Chloride 10 ml 05/17/22 14:26 Sodium Chloride 0.9% 10 Ml Flush Syringe IV PRN PRN LINE FLUSH
--- NOTE | 2022-05-28 12:25 | Progress Note ---
Assessment and Plan - Patient Problems (1) Rapid atrial fibrillation Current Visit: Yes Status: Acute Plan to address problem: Patient has much better atrial fibrillation rate control with the addition of amiodarone. Subjective Date of service: 05/28/22 Principal diagnosis: AHRF; AMS; Left SDH; ESRD on dialysis; COPD; H/O Cocaine abuse Interval history: Patient is resting comfortably in bed, no cardiac complaints, no new cardiac events reported. On bus monitor, there is well-controlled atrial fibrillation in the 90s to low 100s. Objective Vital Signs Temp Pulse Pulse Resp BP Pulse Ox 05/28/22 12:01 106 H 17 83/64 95 05/28/22 12:00 98.0 F 104 H 05/28/22 11:00 106 H 17 104/72 99 05/28/22 10:35 130 H 104/72 05/28/22 10:28 125 H 107/83 05/28/22 10:00 108 H 17 108/85 97 05/28/22 09:00 105 H 17 94/64 100 05/28/22 08:00 97.6 F 103 H 18 102/80 100 05/28/22 07:00 95 H 18 134/87 96 05/28/22 06:00 100 H 16 86/62 100 05/28/22 05:00 96 H 21 114/69 97 05/28/22 04:00 97.8 F 81 81 18 83/58 99 05/28/22 03:00 96 H 17 92/59 98 05/28/22 02:00 86 17 102/71 99 05/28/22 01:00 96 H 19 110/79 100 05/28/22 00:00 98.0 F 89 89 20 78/53 93 05/27/22 23:00 94 H 18 102/69 94 05/27/22 22:00 102/69 93 05/27/22 21:55 100 H 117/80 05/27/22 21:25 94 H 19 98/67 100 05/27/22 21:00 100 H 16 98/67 100 05/27/22 20:01 84 23 112/88 97 05/27/22 20:00 83 100 H 23 97 05/27/22 19:53 83 90/57 05/27/22 19:43 97.5 F L 05/27/22 19:00 83 21 90/57 100 05/27/22 18:01 115 H 22 115/72 99 05/27/22 17:01 144 H 20 98/61 99 05/27/22 16:42 143 H 101/68 05/27/22 16:41 146 H 101/68 05/27/22 16:01 151 H 22 109/57 98 05/27/22 16:00 97.6 F 124 H 100 H 18 99 05/27/22 15:54 123 H 112/71 100 05/27/22 14:01 113 H 19 107/55 95 05/27/22 13:01 144 H 22 99/57 95 - Physical Examination General: No Apparent Distress HEENT: Positive: PERRL Neck: Positive: neck supple Cardiac: Positive: irregularly irregular Lungs: Positive: Decreased Breath Sounds Neuro: Positive: Weakness (Generalized lethargy) Abdomen: Positive: Soft Skin: Positive: Clear Extremities: Absent: edema - Labs and Meds CBC 05/27/22 Range/Units 15:37 WBC 6.5 (4.5-11.0) K/mm3 RBC 2.90 L (3.65-5.03) M/mm3 Hgb 8.3 L (11.8-15.2) gm/dl Hct 25.4 L (35.5-45.6) % Plt Count 176 (140-440) K/mm3 Comprehensive Metabolic Panel 05/27/22 Range/Units 15:37 Sodium 136 L (137-145) mmol/L Potassium 4.3 (3.6-5.0) mmol/L Chloride 96.8 L (98-107) mmol/L Carbon Dioxide 31 H (22-30) mmol/L BUN 29 H (9-20) mg/dL Creatinine 4.6 H (0.8-1.3) mg/dL Glucose 103 H (75-100) mg/dL Calcium 8.9 (8.4-10.2) mg/dL - Allied health notes Allied health notes reviewed: nursing
--- NOTE | 2022-05-28 14:11 | Progress Note ---
Assessment and Plan Assessment and plan: Assessment and plan: This is a 56-year-old male with HTN, cardiomyopathy, ESRD on HD, COPD, former cocaine abuser, SDH with left shift and hemoperitoneum s/p decompressive cranio jason and paracentesis, acute hypoxic respiratory failure s/p tracheostomy with eventual decannulation who was admitted with acute hypoxic respiratory failure requiring ventilatory support. Hospital course to date: 05/18: Patient is following commands remains sedated on Precedex. Patient will receive hemodialysis today. Likely will CPAP tomorrow. NG tube placed and sta rted on tube feedings. 05/19: S/p extubation, stable on RA. Patient is s/p fall today, now c/o of Left elbow and pelvic pain. Orders placed for Lt. elbow X-ray and CT head/lumbar spine/pelvic. PRN analgesia orderd for pain control. Patient remains in Afib with RVR HR in the 120-130s, currently on PO amio. Patient's home meds list is available will resume home medications for rate control. Possible Cardiology consult if Afib RVR persists. Will keep patient in the ICU for another 24hrs post extubation, possible transfer to the floor tomorrow if patient remains stable. 05/20: Increase anxiety and agitation overnight, back on low dose precedex gtt. Lt. elbow X-ray and CT scans reviewed, fractures enthesophytes, superior and inferior pubic rami with soft tissue hematoma reported. H&H is stable, no s/s of any active bleeding. Ortho consulted for further eval and treat. Continue to trend CBC and PRN analgesia for pain control. Patient remains in Afib with RVR, on BB, BP stable. Given patient's current Afib with RVR, will continue VTE proph for now, awaiting Cardio and Ortho recommendations. Cardiology also consulted. Patient's home seroquel and antianxiety regime resumed. Wean off precedex gtt for RASS goal of 0 to -1. Plan for HD today per Nephro. PT/OT ordered. 05/21: Remains on precedex gtt due to increase agitation and combativeness overnight, symptoms resolved this am. Patient's family reported multiple psych issues since childhood. Seroquel adjusted and Mental health/psych consulted. Patient remains in Afib but in rate control this am. Cardiology recommendations appreciated, 2D echo pending. Attending also discussed with Ortho, with no indication of any surgery at this time. Ortho recommends PT/OT and weight bearing as tolerated. Full consult pending. JESSICA alston ordered. PRN analgesia for pain control. 05/22: Remains on precedex, more calm and appropriate this am. Remains on 2L NC, hypoxia noted overnight on RA, recent CXR noted with increase CHF/pulmonary edema. Patient remains in Afib but in control rate. 2D echo and cardiology recommendations noted. Patient with low BP this am, BB reduced to 50mg BID and antihypertensive therapy held today. H&H also dropped this am and worsen thrombocytopenia this am, no s/s of any active bleeding. Will hold AC for now, 1unit of PRBCs rdered and iHD today per Nephro. Patient has been refusing PT and OOB activity, still c/o of buttocks and hip pain. Continue to encourage OOB and physical therapy. PRN analgesia for pain control. Monitor and replace electrolytes as needed. 05/23: Mentation remains labile. Awake but still with periods of confusion and agitation. Off precedex gtt this am. Patient tolerated HD yesterday 3L removed, stable on 2L NC. In Afib with RVR, HR in 140s this am. D/w Cardio plan to adjust regimen therapy for rate control. Okay to transfer patient to IMCU per CCM. 05/24: Patient seen and examined, Cardiology evaluated the patient yesterday made some adjustment to BP management. Patient remains confused with AMS and cxr obtained this morning due to worsening Hypoxia shows increased opacities to the Right lung. Sent to the Pulmonary doctor for review. Will keep NPO for now and may need dobhuff if prolonged AMS. Patient underwent speech eval prior and passed 05/19. Considering the waxing and waning mentation, will consider obtaining MRI Brain when stable and also obtain Neurology consult. Continue IMCU care, may need to move back to ICU if no improvement. Discussed with Pulm and Darline. HD ordered for today 05/25: Awake, still confused with periods of agitation. MRI and Neurology consult pending. Patient remains in Afib RVR this am with low BP. S/p iHD yesterday 2L removed. still on NRB SPO2 above 95%. Hold all BB, cardizem, and all antihypertensive today. X1 of IV albumin and 500cc IVF bolus today, and midodrine was initiated. Patient is also hyperkalemic this am, plan for iHD again today. Thoracentesis pending for moderate pleural effusion. 05/26: Awake but still confused as reported on prior encounters. Remains in Afib RVR rate in 140-150's....amiodorone added by cardiology. Midodrine stopped as patient blood pressure was elevated today in 130's systolic. S/p thoracentesis, will need to wean off nrb as sats tolerate. 05/27; Awake, follows more commands today. Less aggitated, responding well to xanax. Thoracentesis completed yesterday, approx 2L removed yesterday. CT brain ordered yesterday evening negative for acute findings. MR brain still pending, d/w RN to see if patient could get study completed today. HR remains elevated, max rate 140 this AM. Continue rate/rhythm control with dilt/metoprolol/amiodorone. Spoke with and updated about plan for today. 05/28: HR well controlled on amio. MR brain negative for acute findings. Placement currently of concern. Will work with for safe discharge. Assessment and Plan Neuro: Acute Metabolic Encephalopathy-improved h/o SDH with left shift s/p decompressive craniotomy, h/o cocaine abuse/Spych issues S/p Fall -S/p extubation, off sedations -AAO, but with periods of disorientation, very impulsive -Remains on precedex overnight due to increase anxiety/agitation/combativeness -Patient's family reported multiple psych issues since childhood -seroquel adjusted, continue PRN xanax -Wean precededx gtt for RASS goal 0 to -1 -Mental Health/psych consulted -Reorientation as needed -Maintain sleep-wake cycle -As needed analgesia -Fall precaution -PT/OT consulted Cardiac: Atrial Fibrilation with RVR, Systolic HFrEF, Moderate Pulmonary HTN h/o cardiomyopathy, HTN -Patient remains in Afib, but in rate control this am. VSS -Cardiology consulted, appreciate recommendations -2D echo reviewed, LVEF 40-45%, moderate pulmonary HTN- RSVP 45-50 -Low BP today, all antihypertensive and antiarrhytmic therapy held -X1 dose of IV albumin and 500 cc NS, midodrine added -Blood pressure monitoring per protocol -Maintain SBP less than 160 -AC held due to anemia and thrombocytopenia Respiratory: Acute hypoxic respiratory failure, s/p tracheostomy with eventual decannulation, COPD, Moderate Right Pleural Effusion -CCM consulted, appreciate recommendations -Intubated on 05/17 at OSH; 05/19 s/p extubation -Now on NRB -Recent CXR reviewed, with moderate right pleural effusuion -Thoracentesis pending -Continue iHD per Nephro, 2L removed yesterday -Continue O2 supplementation and wean as tolerated -SPO2 monitoring for SPO2 goal aboev 92% -Of note patient self decannulated on 05/05 Superior and Inferior Pubic Rami fractures Left Enthesophytes Fracture S/p Fall -Noted from Lt. Elbow X-ray and CT scan, see report for details -Ortho consulted, appreciate recommendations -Attending also discussed with Ortho, with no indication of any surgery at this time. -Ortho recommends PT/OT and weight bearing as tolerated. -LUE sling ordered. -PT/OT consulted -Patient has been refusing PT and OOB activity -Fall precaution -Continue to encourage OOB and physical therapy -PRN Analgesia for pain control GI: Moderate protein calorie malnutrition -S/p PEG tube placement, however now off -Patient removed Richter catheter that was in the PEG-tube stoma, dressing present -Patient passed bedside swallow, renal diet ordered -Speech also following -S/p paracentesis at [facility] on 05/06 with removal of 2.7 L : ESRD on HD, hyperkalemia -Nephrology consulted, appreciate recommendations -Continue HD per Nephro -Monitor intake and output -Renally dose medications -Avoid nephrotoxic medications -Monitor and replace electrolytes as needed -Trend BMP Heme: Anemia of Chronic Disease, Thrombocytopenia -Probably chronic 2/2 of ESRD -s/p 1unit of PRBCs -H&H stable and plt improved -No s/s of any active bleeding -Continue Epogen with iHD per Nephro -AC held due to anemia and thrombocytopenia -Transfuse for hgb less than 7 ID: Sepsis (POA) -Leukopenia, CXR showed left-sided effusion with associated opacity and mild right basilar atelectasis -COVID-19 PCR negative, MRSA PCR negative -s/p Antibiotic therapy with cefepime -f/u blood culture -Monitor WBC and temperature curve GI/DVT Prophylaxis -PPI- pepcid -SCDs to bilateral lower extremities while in bed The high probability of a clinically significant, sudden or life threatening deterioration of the [multi] system(s) required my full and direct attention, intervention and personal management. The aggregate critical care time was [60] minutes. This time is in addition to time spent performing reported procedures but includes the following: [x] Data Review and interpretation [x] Patient assessment and monitoring of vital signs [x] Documentation [x] Medication orders and management Disposition Plan: IMCU Total Time Spent with Patient (Minutes): 60 History Interval history: Patient is resting comfortably in bed, no cardiac complaints, no new cardiac events reported. Hospitalist Physical - Physical exam Narrative exam: - Physical exam Narrative exam: General appearance: Present: no acute distress, cachectic - EENT Eyes: Present: PERRL ENT: hearing intact - Neck Neck: Present: normal ROM - Respiratory Respiratory effort: normal Respiratory: bilateral: diminished - Cardiovascular Rhythm: irregularly irregular, rate controlled afib, 90-100 Heart Sounds: Present: S1 & S2 - Extremities Extremities: no ischemia, pulses intact, pulses symmetrical Peripheral Pulses: within normal limits - Abdominal General gastrointestinal: soft, non-distended, normal bowel sounds - Integumentary Integumentary: Present: warm, dry - Psychiatric Psychiatric: other (Confused, Impulsive at time) - Neurologic Neurologic: moves all extremities, other (Awake but confused, with periods of a gitation) - Allied Health Allied health notes reviewed: nursing, case management - Constitutional Vitals: Temp Pulse Resp BP Pulse Ox 98.0 F 106 H 17 83/64 95 05/28/22 12:00 05/28/22 12:01 05/28/22 12:01 05/28/22 12:01 05/28/22 12:01 General appearance: Present: mild distress, cachectic Results - Labs CBC & Chem 7: 05/27/22 15:37 05/27/22 15:37 Labs: Laboratory Last Values WBC 6.5 K/mm3 (4.5-11.0) 05/27/22 15:37 RBC 2.90 M/mm3 (3.65-5.03) L 05/27/22 15:37 Hgb 8.3 gm/dl (11.8-15.2) L 05/27/22 15:37 Hct 25.4 % (35.5-45.6) L 05/27/22 15:37 MCV 88 fl (84-94) 05/27/22 15:37 MCH 29 pg (28-32) 05/27/22 15:37 MCHC 33 % (32-34) 05/27/22 15:37 RDW 19.7 % (13.2-15.2) H 05/27/22 15:37 Plt Count 176 K/mm3 (140-440) 05/27/22 15:37 Lymph % (Auto) 10.8 % (13.4-35.0) L 05/25/22 12:57 Gallia % (Auto) 13.1 % (0.0-7.3) H 05/25/22 12:57 Eos % (Auto) 1.5 % (0.0-4.3) 05/25/22 12:57 Baso % (Auto) 0.1 % (0.0-1.8) 05/25/22 12:57 Lymph # (Auto) 0.6 K/mm3 (1.2-5.4) L 05/25/22 12:57 Gallia # (Auto) 0.8 K/mm3 (0.0-0.8) 05/25/22 12:57 Eos # (Auto) 0.1 K/mm3 (0.0-0.4) 05/25/22 12:57 Baso # (Auto) 0.0 K/mm3 (0.0-0.1) 05/25/22 12:57 Seg Neutrophils % 74.5 % (40.0-70.0) H 05/25/22 12:57 Seg Neutrophils # 4.3 K/mm3 (1.8-7.7) 05/25/22 12:57 ABG pH 7.494 pH Units (7.350-7.450) H 05/25/22 12:00 ABG pCO2 38.0 mm Hg 05/25/22 12:00 ABG pO2 61.1 mm Hg (80.0-90.0) L 05/25/22 12:00 ABG HCO3 28.5 mmol/L (20.0-26.0) H 05/25/22 12:00 ABG O2 Saturation 96.8 % (95.0-99.0) 05/25/22 12:00 ABG O2 Content 9.1 (0.0-44) 05/25/22 12:00 ABG Base Excess 4.9 mmol/L (-2.0-3.0) H 05/25/22 12:00 ABG Hemoglobin 6.8 gm/dl (14.0-18.0) L 05/25/22 12:00 ABG Carboxyhemoglobin 1.8 % (0.0-5.0) 05/25/22 12:00 ABG Methemoglobin 0.5 % (0.0-1.5) 05/25/22 12:00 Oxyhemoglobin 94.5 % (95.0-99.0) L 05/25/22 12:00 FiO2 100 % 05/25/22 12:00 Sodium 136 mmol/L (137-145) L 05/27/22 15:37 Potassium 4.3 mmol/L (3.6-5.0) 05/27/22 15:37 Chloride 96.8 mmol/L (98-107) L 05/27/22 15:37 Carbon Dioxide 31 mmol/L (22-30) H 05/27/22 15:37 Anion Gap 13 mmol/L 05/27/22 15:37 BUN 29 mg/dL (9-20) H 05/27/22 15:37 Creatinine 4.6 mg/dL (0.8-1.3) H 05/27/22 15:37 Estimated GFR 13 ml/min 05/27/22 15:37 BUN/Creatinine Ratio 6 % 05/27/22 15:37 Glucose 103 mg/dL (75-100) H 05/27/22 15:37 POC Glucose 112 mg/dL (70-105) H 05/28/22 11:38 Lactic Acid 1.00 mmol/L (0.7-2.0) 05/25/22 13:20 Calcium 8.9 mg/dL (8.4-10.2) 05/27/22 15:37 Phosphorus 3.90 mg/dL (2.5-4.5) D 05/24/22 05:15 Magnesium 2.20 mg/dL (1.7-2.3) 05/24/22 05:15 Total Bilirubin 0.40 mg/dL (0.1-1.2) 05/17/22 14:28 AST 7 units/L (5-40) 05/17/22 14:28 ALT < 5 units/L (7-56) L 05/17/22 14:28 Alkaline Phosphatase 78 units/L (35-129) 05/17/22 14:28 Ammonia 24.0 umol/L (25-60) L 05/24/22 08:15 Lactate Dehydrogenase 149 units/L (91-180) 05/25/22 12:57 Total Protein 6.1 g/dL (6.3-8.2) L 05/17/22 14:28 Albumin 2.9 g/dL (3.9-5) L 05/17/22 14:28 Albumin/Globulin Ratio 0.9 % 05/17/22 14:28 Vitamin B12 633.2 pg/mL (211-911) 05/27/22 04:33 Folate 6.08 ng/mL (7.3-26.0) L 05/27/22 04:33 TSH 8.200 mlU/mL (0.270-4.200) H 05/27/22 04:33 Fluid Type Pleural 05/26/22 11:59 Fluid Color Vicenta 05/26/22 11:59 Fluid Appearance Cloudy 05/26/22 11:59 Fluid WBC 1375 /mm3 05/26/22 11:59 Fluid RBC 94052 /mm3 05/26/22 11:59 Fluid Seg Neutrophils 88.0 % 05/26/22 11:59 Fluid Lymphocytes 6.0 % 05/26/22 11:59 Fluid Monocytes 6.0 % 05/26/22 11:59 Nasal Screen MRSA (PCR) Negative (Negative) 05/18/22 08:30 Syphilis IgG/IgM Ab Nonreactive (NonReactive) 05/27/22 04:33 Coronavirus (PCR) Negative (Negative) 05/24/22 11:05 Hepatitis A IgM Ab Non-reactive (NonReactive) 05/18/22 18:10 Hep Bs Antigen Non-reactive (Negative) 05/18/22 18:10 Hep B Core IgM Ab Non-reactive (NonReactive) 05/18/22 18:10 Hepatitis C Antibody Reactive (NonReactive) A 05/18/22 18:10 Blood Type A NEGATIVE 05/22/22 06:00 Antibody Screen Negative 05/22/22 06:00 Crossmatch See Detail 05/22/22 06:00 Microbiology: Microbiology 05/24/22 10:45 Peripheral/Venous Blood Culture - Preliminary NO GROWTH AFTER 4 DAYS 05/24/22 10:15 Peripheral/Venous Blood Culture - Preliminary NO GROWTH AFTER 4 DAYS 05/26/22 11:59 Pleural Fluid - Pleura,Rt Lung Body Fluid Culture - Preliminary Active Medications - Current Medications Current Medications: Generic Name Dose Route Start Last Admin Trade Name Freq PRN Reason Stop Dose Admin Acetaminophen 650 mg 05/17/22 14:26 05/24/22 01:13 Acetaminophen 325 Mg Tab PO 650 mg Q4H PRN Administration Pain MILD(1-3)/Fever >100.5/DYER Albumin Human 25 gm 05/18/22 09:10 05/22/22 14:54 Albumin Human 25% (25 Gm/100 Ml) Inj IV 25 gm TOM PRN Administration Hypotension Albuterol 2.5 mg 05/18/22 06:02 Albuterol 2.5 Mg/3 Ml Nebu IH Q3HRT PRN Wheezing Alprazolam 0.5 mg 05/23/22 12:50 05/27/22 10:10 Alprazolam 0.5 Mg Tab PO 0.5 mg Q8HR PRN Administration Anxiety/agitation Amiodarone HCl 200 mg 05/26/22 14:00 05/28/22 10:28 Amiodarone 200 Mg Tab PO 200 mg BID DAQUAN Administration Lipase/Protease/Amylase 1 each 05/26/22 11:06 Lipase 10,500/Protease 25,000/Amylase 43,750 (Units) Dr Martinez FEEDTUBE PRN PRN For Clogged Feeding Tube Aspirin 81 mg 05/21/22 10:00 05/28/22 10:29 Aspirin Ec 81 Mg Tab PO 81 mg QDAY DAQUAN Administration Dextrose 50 ml 05/18/22 15:00 Dextrose 50% In Water (25gm) 50 Ml Syringe IV Q30MIN PRN Hypoglycemia Protocol Diltiazem HCl 60 mg 05/25/22 14:00 05/28/22 10:28 Diltiazem 60 Mg Tab PO 60 mg TID DAQUAN Administration Diphenhydramine HCl 25 mg 05/20/22 13:30 05/24/22 23:31 Diphenhydramine 25 Mg Cap PO 25 mg Q6H PRN Administration Itching Docusate Sodium 100 mg 05/22/22 10:00 05/28/22 10:29 Docusate Sodium 100 Mg Cap PO 100 mg BID DAQUAN Administration Epoetin Jacinto-epbx 10,000 unit 05/18/22 09:10 05/26/22 20:11 Epoetin Jacinto-Epbx 10,000 Unit/1 Ml Vial IV 10,000 unit TOM PRN Administration hemodialysis Famotidine 20 mg 05/20/22 10:00 05/28/22 10:29 Famotidine 20 Mg Tab PO 20 mg QDAY DAQUAN Administration Sodium Chloride 100 mls @ 999 mls/hr 05/24/22 08:11 Nacl 0.9% IV TOM PRN Hypotension Losartan Potassium 50 mg 05/26/22 10:00 05/28/22 10:38 Losartan 50 Mg Tab PO Not Given QDAY DAQUAN Metoprolol Tartrate 100 mg 05/25/22 22:00 05/28/22 10:35 Metoprolol Tartrate 100 Mg Tab PO 100 mg BID DAQUAN Administration Ondansetron HCl 4 mg 05/24/22 17:30 Ondansetron 4 Mg/2 Ml Inj IV Q8H PRN Nausea And Vomiting Oxycodone/Acetaminophen 1 tab 05/21/22 11:00 05/26/22 11:31 Oxycodone /Acetaminophen 5-325mg Tab PO 1 tab Q6H PRN Administration Pain, Moderate (4-6) Quetiapine Fumarate 150 mg 05/24/22 18:00 05/28/22 10:28 Quetiapine 100 Mg Tab PO 150 mg QDAY DAQUAN Administration Quetiapine Fumarate 200 mg 05/24/22 17:30 05/27/22 21:55 Quetiapine 100 Mg Tab PO 200 mg QHS DAQUAN Administration Senna/Docusate Sodium 1 tab 05/22/22 22:00 05/27/22 21:55 Sennosides/Docusate Sodium 8.6/50 Mg Tab PO 1 tab QHS DAQUAN Administration Simple Syrup 15 ml 05/26/22 11:06 Simple Syrup 15 Ml FEEDTUBE PRN PRN Hypoglycemia Simple Syrup 30 ml 05/26/22 11:06 Simple Syrup 15 Ml FEEDTUBE PRN PRN Hypoglycemia Sodium Bicarbonate 325 mg 05/26/22 11:06 Sodium Bicarbonate 325 Mg Tab FEEDTUBE PRN PRN For Clogged Feeding Tube Sodium Chloride 10 ml 05/17/22 22:00 05/28/22 10:35 Sodium Chloride 0.9% 10 Ml Flush Syringe IV 10 ml BID DAQUAN Administration Sodium Chloride 10 ml 05/17/22 14:26 Sodium Chloride 0.9% 10 Ml Flush Syringe IV PRN PRN LINE FLUSH Nutrition/Malnutrition Assess - Dietary Evaluation Nutrition/Malnutrition Findings: Nutrition Notes Start: 05/18/22 14:16 Freq: Status: Active Protocol: Document 05/28/22 10:23 LUCERO (Rec: 05/28/22 10:42 LUCERO [id number]) Nutrition Notes Initial or Follow up Reassessment Current Diagnosis CKD (stage V CKD),COPD, Hypertension,Respiratory Failure,Malnutrition Other Pertinent Diagnosis Metabolic Encephalopathy, L- Elbow+Pelvic Fractures s/p Fall, ESRD+HD, ... Current Diet Mechanical Soft Diet (since B 05/27), D Suppl (from L-05/28) . Labs/Tests 05/27: Na 136, Cl 96.8, CO2 31 , BUN 29, Crea 4.6, Glu 103. Pertinent Medications 05/28: Nutritionally unremarkable. Height 6 ft 4 in Weight 76.3 kg [place] Body Weight (kg) 91.81 BMI 20.5 Weight change and time frame No body weight change reported in 10 days. Weight Status Appropriate Subjective/Other Information RD consult for routine F/U on TF tolerance/continuation. TF was discontinued and diet advanced to Mechanical Soft, no reports available on Pt's PO intake of meals at the time , will assess at F/U. I will prescribe Renal modification to current diet, to support Pt's CKD V/ESRD condition during LOS. I will restart the prescription of dietary supplements to compensate for possible poor or insufficient PO intake of meals during LOS. Pt extubated and on Nasal Cannula, O2 saturation @ 99%, according to Physical Assessment History notes. Pt presents Oropharyngeals Dysphagia, and missing teeth, according to Physical Assessment History notes. Procedure on 05/26: R- Thoracentresis, 2000ml of pleural fluid extracted, according to Progress notes. Percent of energy/protein needs met: Prescribed Mechanical Soft Diet provides for energy/ protein needs (2,048 Kcal/97 g ) during LOS. 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 As Evidenced by Signs and Symptoms 05/27: Na 136, Cl 96.8, CO2 31 , BUN 29, Crea 4.6, Glu 103. #1 Nutrition Diagnosis Swallowing difficulty Comments: TF was discontinued and diet advanced to Mechanical Soft. Diagnosis Progress(for reassessment Continues documentation) Is patient on ventilator? No Is Patient Ambulatory and/or Out of Bed Yes REE-(Stanfield-St. Jeor-ambulatory/OOB) [ [id number] [id number]] Calculation Used for Recommendations Kcal/kg Additional Notes Protein: >1.2 g/Kg ABW; >92 g/ day. Fluids: 1 ml/Kcal, or as per MD. Nutrition Intervention Change Diet Order: Modify current diet to Mechanical Soft -Renal- Diet, continue as tolerated. Nutrition Support: Discontinued. Add Supplement/Snack (indicate name/kcal Continue 8 fl oz Nepro w/ /protein ) CARBSTEADY; BID. Provides kCal: 850 Provides Protein (gm) 38 Goal #1 Compensate, through dietary supplementation, for possible poor or insufficient PO intake of meals during LOS. Goal #2 Help reach and maintain acceptable chemistry lab values during LOS. Goal #3 Adjust the dietary intervention to better serve Pt's needs and clinical conditions during LOS. Follow-Up By: 06/04/22 Additional Comments Continue monitoring food tolerance, %PO intake of meals , dietary supplements, and BM.
[2022-05-28] MEDS: oxyCODONE /ACETAMINOPHEN 5-325MG TAB PO PRN (15:37)
[2022-05-28] MEDS: EPOETIN ALFA-EPBX 10,000 UNIT/1 ML VIAL IV PRN (19:30)
[2022-05-28] MEDS: SENNOSIDES/DOCUSATE SODIUM 8.6/50 MG TAB PO SCH (21:17)
--- NOTE | 2022-05-28 22:47 | Progress Note ---
Assessment and Plan This 56 year old Male transfered from [facility]. Patient developed severe respiratory distress at [facility]. Patient intubated and placed on mechanical ventilation. Patient transfered to [facility] ICU for further management and placement of central venous acess. Patient was on mechanical ventilation in the past. Patient was weaned from the ventilator and decanulated him. Patient agitated and developed severe respiratory distress, patient intubated and placed on assist control and volume control mechanical ventilation. Patient has history of HTN, Cardiomyopathy, ESRD on dialysis, COPD, History of Cocaine abuse Originally admitted to [facility] on 03/23/22 with altered mental status and CT of head obtained showed large Subdural hematoma with left shift.and also had hemoperitoneum.Patient undergone decompressive craniotomy.Patient also undergone paracentesis. Patient intubated and placed on mechanical ventilation subsequently has tracheostomy and PEG placement. Transfered to [facility] at that point. Patient weaned from the ventilator, subsequently decanulated. Patient tolerated decanulation well. Patient is on room air yesterday with 100% O2 saturation. Patient very anxious, May have seizure like activity, patients respiratory status detriorated, patient reintubated and placed on assist control mechanical ventilation. According to the chart, patient has history of smoking and Cocaine use. and has children. No known drug allergies. Patient sedated, not responding to verbal stimuli. Patient presently on assist control, volume control, rate 15, Tidal volume 450, FIO2 40%, PEEP 6 and O2 saturation running 100%. Recommend to decrease FIO2 to 30%. ABG on mechanical ventilation, AC/VC rate 15, Tidal volume 450, PEEP 6, FIO2 40% ABG pH 7.416 pH Units (7.350-7.450) 05/17/22 15:10 ABG pCO2 38.4 mm Hg 05/17/22 15:10 ABG pO2 191.6 mm Hg (80.0-90.0) H 05/17/22 15:10 ABG O2 Saturation 99.2 % (95.0-99.0) H 05/17/22 15:10 Recommend to decrease FIO2 to 30%. Patient eventually extubated. Patient transfered to [facility]. Patient sleepy and lethergic.Not responding to verbal stimuli On 2 litres O2. O2 saturation 100%. No acute respiratory distress. Patient afebrile. No leukocytosis. Blood pressure 86/63, pulse 120 , Respirations 22. Chest xray done 05/17/22 reported Layering left-sided effusion with associated opacity and mild right basilar atelectasis remain. No pneumothorax. Lines and tubes in satisfactory position. Patient undergone right thoracentesis 05/26/22. Aspirated 2000 ml of blood tinged fluid. Pleural fluid WBC 1375, RBC 11,000. Pleural fluid protein and LDH results pending. Chest xray Post thoracentesis done 05/26/22 No evidence for pneumothorax after right thoracentesis. Cardiomegaly. Airspace opacity at the right lung base could represent atelectasis or infiltrate. Follow-up is recommended. Patient is on Albuterol inhaler and famotidine. Recommend Nutritional evaluation. I spent critical care time of 35 minutes, reviewing the chart, examine the patient,review labs, chest xray, talking to the nursing staff, respiratory therapy and work up plan of treatment in this critically ill patient. - Patient Problems (1) Acute respiratory failure with hypoxia Current Visit: Yes Status: Acute Plan to address problem: On 2 litres O2. O2 saturation 100%. Recommend xopenex and atrovent aerosol treatments q 8 hours. S/C Heparin Famotidine. (2) Subdural hematoma Current Visit: Yes Status: Chronic Plan to address problem: Patient undergone decompressive Craniotomy at [facility]. Management as per neurology. (3) Toxic metabolic encephalopathy Current Visit: Yes Status: Acute Plan to address problem: Management as per primary care and neurology. (4) ESRD on dialysis Current Visit: Yes Status: Chronic Plan to address problem: Management as per nephrology. (5) HTN (hypertension) Current Visit: Yes Status: Chronic Qualifiers: Hypertension type: primary hypertension Qualified Code(s): I10 - Essential (primary) hypertension Plan to address problem: Management as per primary care. (6) COPD (chronic obstructive pulmonary disease) Current Visit: Yes Status: Chronic Qualifiers: COPD type: COPD with acute exacerbation Qualified Code(s): J44.1 - Chronic obstructive pulmonary disease with (acute) exacerbation Plan to address problem: On 4 litres O2. O2 saturation 97%. Recommend xopenex and atrovent aerosol treatments q 8 hours. S/C Heparin Famotidine (7) Pleural effusion Current Visit: Yes Status: Acute Plan to address problem: Patient undergone right thoracentesis 05/26/22. Aspirated 2000 ml of blood tinged fluid. Pleural fluid WBC 1375, RBC 11,000. Pleural fluid protein and LDH results pending. Chest xray Post thoracentesis done 05/26/22 No evidence for pneumothorax after right thoracentesis. Cardiomegaly. Airspace opacity at the right lung base could represent atelectasis or infiltrate. (8) Cardiomyopathy Current Visit: Yes Status: Acute Plan to address problem: Management as per cardiology. (9) Oropharyngeal dysphagia Current Visit: Yes Status: Acute Plan to address problem: Aspiration precautions. (10) Seizures Current Visit: Yes Status: Chronic Plan to address problem: Question of Seizures. Management as per primary care and neurology.. Subjective Date of service: 05/28/22 Principal diagnosis: AHRF; AMS; Left SDH; ESRD on dialysis; COPD; H/O Cocaine abuse Interval history: This 56 year old Male transfered from [facility]. Patient developed severe respiratory distress at [facility]. Patient intubated and placed on mechanical ventilation. Patient transfered to [facility] ICU for further management and placement of central venous acess. Patient was on mechanical ventilation in the past. Patient was weaned from the ventilator and decanulated him. Patient agitated and developed severe respiratory distress, patient intubated and placed on assist control and volume control mechanical ventilation. Patient has history of HTN, Cardiomyopathy, ESRD on dialysis, COPD, History of Cocaine abuse Originally admitted to [facility] on 03/23/22 with altered mental status and CT of head obtained showed large Subdural hematoma with left shift.and also had hemoperitoneum.Patient undergone decompressive craniotomy.Patient also undergone paracentesis. Patient intubated and placed on mechanical ventilation subsequently has tracheostomy and PEG placement. Transfered to [facility] at that point. Patient weaned from the ventilator, subsequently decanulated. Patient tolerated decanulation well. Patient is on room air yesterday with 100% O2 saturation. Patient very anxious, May have seizure like activity, patients respiratory status detriorated, patient reintubated and placed on assist control mechanical ventilation. According to the chart, patient has history of smoking and Cocaine use. and has children. No known drug allergies. Patient sedated, not responding to verbal stimuli. Patient presently on assist control, volume control, rate 15, Tidal volume 450, FIO2 40%, PEEP 6 and O2 saturation running 100%. Recommend to decrease FIO2 to 30%. ABG on mechanical ventilation, AC/VC rate 15, Tidal volume 450, PEEP 6, FIO2 40% ABG pH 7.416 pH Units (7.350-7.450) 05/17/22 15:10 ABG pCO2 38.4 mm Hg 05/17/22 15:10 ABG pO2 191.6 mm Hg (80.0-90.0) H 05/17/22 15:10 ABG O2 Saturation 99.2 % (95.0-99.0) H 05/17/22 15:10 Recommend to decrease FIO2 to 30%. Patient eventually extubated. Patient transfered to [facility]. Patient sleepy and lethergic.Not responding to verbal stimuli On 2 litres O2. O2 saturation 100%. No acute respiratory distress. Patient afebrile. No leukocytosis. Blood pressure 86/63, pulse 120 , Resp irations 22. Chest xray done 05/17/22 reported Layering left-sided effusion with associated opacity and mild right basilar atelectasis remain. No pneumothorax. Lines and tubes in satisfactory position. Patient undergone right thoracentesis 05/26/22. Aspirated 2000 ml of blood tinged fluid. Pleural fluid WBC 1375, RBC 11,000. Pleural fluid protein and LDH results pending. Chest xray Post thoracentesis done 05/26/22 No evidence for pneumothorax after right thoracentesis. Cardiomegaly. Airspace opacity at the right lung base could represent atelectasis or infiltrate. Follow-up is recommended. Patient is on Albuterol inhaler and famotidine. Recommend Nutritional evaluation. Objective Vital Signs - 12hr 05/28/22 05/28/22 05/28/22 11:00 12:00 12:01 Temperature 98.0 F Pulse Rate 106 H 104 H 106 H Pulse Rate [ 104 H From Monitor] Respiratory 17 18 17 Rate Blood Pressure 104/72 83/64 O2 Sat by Pulse 99 100 95 Oximetry O2 Sat by Pulse Oximetry [ Anterior Bilateral Throughout] 05/28/22 05/28/22 05/28/22 13:00 14:01 15:00 Temperature Pulse Rate 125 H 104 H 106 H Pulse Rate [ From Monitor] Respiratory 22 18 16 Rate Blood Pressure 86/53 85/64 99/64 O2 Sat by Pulse 100 95 96 Oximetry O2 Sat by Pulse Oximetry [ Anterior Bilateral Throughout] 05/28/22 05/28/22 05/28/22 15:40 16:00 16:01 Temperature 98.1 F 98.1 F Pulse Rate 108 H 111 H 116 H Pulse Rate [ 111 H From Monitor] Respiratory 18 21 22 Rate Blood Pressure 92/67 84/57 O2 Sat by Pulse 99 99 Oximetry O2 Sat by Pulse 99 Oximetry [ Anterior Bilateral Throughout] 05/28/22 05/28/22 05/28/22 16:09 16:15 16:30 Temperature Pulse Rate 90 83 54 L Pulse Rate [ From Monitor] Respiratory Rate Blood Pressure 115/99 110/66 91/71 O2 Sat by Pulse Oximetry O2 Sat by Pulse Oximetry [ Anterior Bilateral Throughout] 05/28/22 05/28/22 05/28/22 16:45 17:00 17:01 Temperature Pulse Rate 86 86 106 H Pulse Rate [ From Monitor] Respiratory 20 Rate Blood Pressure 95/62 95/57 95/57 O2 Sat by Pulse 100 Oximetry O2 Sat by Pulse Oximetry [ Anterior Bilateral Throughout] 05/28/22 05/28/22 05/28/22 17:15 17:30 17:45 Temperature Pulse Rate 96 H 60 77 Pulse Rate [ From Monitor] Respiratory Rate Blood Pressure 84/58 87/48 90/52 O2 Sat by Pulse Oximetry O2 Sat by Pulse Oximetry [ Anterior Bilateral Throughout] 05/28/22 05/28/22 05/28/22 18:00 18:15 18:30 Temperature Pulse Rate 98 H 88 82 Pulse Rate [ From Monitor] Respiratory 21 Rate Blood Pressure 99/67 87/40 92/58 O2 Sat by Pulse 98 Oximetry O2 Sat by Pulse Oximetry [ Anterior Bilateral Throughout] 05/28/22 05/28/22 05/28/22 18:45 18:50 19:00 Temperature Pulse Rate 94 H 95 H 93 H Pulse Rate [ From Monitor] Respiratory 17 Rate Blood Pressure 66/38 96/69 90/57 O2 Sat by Pulse 99 Oximetry O2 Sat by Pulse Oximetry [ Anterior Bilateral Throughout] 05/28/22 05/28/22 05/28/22 19:15 19:30 19:39 Temperature Pulse Rate 89 74 92 H Pulse Rate [ From Monitor] Respiratory Rate Blood Pressure 99/65 91/58 82/61 O2 Sat by Pulse Oximetry O2 Sat by Pulse Oximetry [ Anterior Bilateral Throughout] 05/28/22 05/28/22 05/28/22 19:48 20:00 20:45 Temperature 98.3 F Pulse Rate 89 83 Pulse Rate [ 83 From Monitor] Respiratory 16 Rate Blood Pressure 93/58 93/58 O2 Sat by Pulse 99 99 Oximetry O2 Sat by Pulse 100 Oximetry [ Anterior Bilateral Throughout] 05/28/22 05/28/22 05/28/22 21:00 21:17 22:00 Temperature Pulse Rate 91 H 83 99 H Pulse Rate [ From Monitor] Respiratory 15 18 Rate Blood Pressure 97/72 93/58 103/53 O2 Sat by Pulse 98 100 Oximetry O2 Sat by Pulse Oximetry [ Anterior Bilateral Throughout] Constitutional: no acute distress, asleep, other (middle aged male with mildly increased respiratory effort at rest) Eyes: non-icteric ENT: oropharynx moist Neck: supple, no JVD Effort: mildly labored Ascultation: Bilateral: diminished breath sounds, rales, rhonchi (scant) Percussion: Right: dull, Bilateral: not dull Cardiovascular: irregular rhythm, other (A-fib) Gastrointestinal: normoactive bowel sounds, soft, non-tender, non-distended (protuberant) Integumentary: normal, other (healed scalp craniotomy incision line) Extremities: no cyanosis, no edema, pink and warm, pulses normal, no ischemia or petechiae Neurologic: non-focal exam (grossly), pupils equal and round Psychiatric: other (Patient sleepy and lethergic.) CBC and BMP: 05/27/22 15:37 05/27/22 15:37 ABG, PT/INR, D-dimer: ABG ABG pH 7.494 pH Units (7.350-7.450) H 05/25/22 12:00 ABG pCO2 38.0 mm Hg 05/25/22 12:00 ABG pO2 61.1 mm Hg (80.0-90.0) L 05/25/22 12:00 ABG O2 Saturation 96.8 % (95.0-99.0) 05/25/22 12:00 Abnormal lab findings: Abnormal Labs 05/17/22 05/17/22 05/17/22 14:26 14:28 15:10 WBC 4.0 L RBC 2.86 L Hgb 8.4 L Hct 24.9 L RDW 20.9 H Plt Count Lymph % (Auto) [place] % (Auto) 14.7 H Lymph # (Auto) 0.6 L [place] # (Auto) Seg Neutrophils % ABG pH ABG pO2 191.6 H ABG HCO3 ABG O2 Saturation 99.2 H ABG Base Excess ABG Hemoglobin 9.0 L Oxyhemoglobin Sodium 126 L Potassium 6.0 H Chloride 91.0 L Carbon Dioxide BUN 42 H Creatinine 6.9 H Glucose POC Glucose Calcium Phosphorus Magnesium ALT < 5 L Ammonia Total Protein 6.1 L Albumin 2.9 L Folate TSH Hepatitis C Antibody Crossmatch 05/18/22 05/18/22 05/18/22 04:13 04:20 06:00 WBC 3.0 L RBC 2.87 L Hgb 8.1 L Hct 25.3 L RDW 20.7 H Plt Count 127 L Lymph % (Auto) [place] % (Auto) 15.1 H Lymph # (Auto) 0.5 L [place] # (Auto) Seg Neutrophils % ABG pH ABG pO2 158.7 H ABG HCO3 ABG O2 Saturation ABG Base Excess ABG Hemoglobin 9.4 L Oxyhemoglobin Sodium 128 L Potassium 6.8 H* Chloride 93.7 L Carbon Dioxide BUN 48 H Creatinine 6.8 H Glucose POC Glucose Calcium Phosphorus Magnesium ALT Ammonia Total Protein Albumin Folate TSH Hepatitis C Antibody Crossmatch 05/18/22 05/18/22 05/18/22 17:49 18:10 23:15 WBC RBC Hgb Hct RDW Plt Count Lymph % (Auto) [place] % (Auto) Lymph # (Auto) [place] # (Auto) Seg Neutrophils % ABG pH ABG pO2 ABG HCO3 ABG O2 Saturation ABG Base Excess ABG Hemoglobin Oxyhemoglobin Sodium Potassium Chloride Carbon Dioxide BUN Creatinine Glucose POC Glucose 144 H 145 H Calcium Phosphorus Magnesium ALT Ammonia Total Protein Albumin Folate TSH Hepatitis C Antibody Reactive A Crossmatch 05/19/22 05/19/22 05/19/22 03:18 03:18 05:21 WBC 2.6 L RBC 2.94 L Hgb 8.5 L Hct 26.2 L RDW 20.3 H Plt Count 137 L Lymph % (Auto) [place] % (Auto) Lymph # (Auto) [place] # (Auto) Seg Neutrophils % ABG pH ABG pO2 ABG HCO3 ABG O2 Saturation ABG Base Excess ABG Hemoglobin Oxyhemoglobin Sodium Potassium 5.1 H D Chloride Carbon Dioxide BUN 34 H Creatinine 4.9 H Glucose 130 H POC Glucose 143 H Calcium 8.3 L Phosphorus Magnesium ALT Ammonia Total Protein Albumin Folate TSH Hepatitis C Antibody Crossmatch 05/19/22 05/19/22 05/20/22 11:23 17:48 00:01 WBC RBC Hgb Hct RDW Plt Count Lymph % (Auto) [place] % (Auto) Lymph # (Auto) [place] # (Auto) Seg Neutrophils % ABG pH ABG pO2 ABG HCO3 ABG O2 Saturation ABG Base Excess ABG Hemoglobin Oxyhemoglobin Sodium Potassium Chloride Carbon Dioxide BUN Creatinine Glucose POC Glucose 127 H 156 H 142 H Calcium Phosphorus Magnesium ALT Ammonia Total Protein Albumin Folate TSH Hepatitis C Antibody Crossmatch 05/20/22 05/20/22 05/20/22 04:31 04:31 17:44 WBC RBC 2.72 L Hgb 7.8 L Hct 24.1 L RDW 20.9 H Plt Count Lymph % (Auto) [place] % (Auto) Lymph # (Auto) [place] # (Auto) Seg Neutrophils % ABG pH ABG pO2 ABG HCO3 ABG O2 Saturation ABG Base Excess ABG Hemoglobin Oxyhemoglobin Sodium Potassium 5.4 H Chloride 96.5 L Carbon Dioxide BUN 53 H Creatinine 6.7 H Glucose 115 H POC Glucose 132 H Calcium 8.1 L Phosphorus 7.90 H Magnesium ALT Ammonia Total Protein Albumin Folate TSH Hepatitis C Antibody Crossmatch 05/21/22 05/21/22 05/21/22 04:13 07:50 11:43 WBC RBC Hgb Hct RDW Plt Count Lymph % (Auto) [place] % (Auto) Lymph # (Auto) [place] # (Auto) Seg Neutrophils % ABG pH ABG pO2 ABG HCO3 ABG O2 Saturation ABG Base Excess ABG Hemoglobin Oxyhemoglobin Sodium Potassium Chloride 97.7 L Carbon Dioxide BUN 37 H Creatinine 4.9 H Glucose POC Glucose 111 H 109 H Calcium 8.0 L Phosphorus Magnesium ALT Ammonia Total Protein Albumin Folate TSH Hepatitis C Antibody Crossmatch 05/21/22 05/21/22 05/22/22 17:00 20:52 03:59 WBC RBC 2.31 L Hgb 6.8 L Hct 20.3 L RDW 20.4 H Plt Count 103 L Lymph % (Auto) [place] % (Auto) Lymph # (Auto) [place] # (Auto) Seg Neutrophils % ABG pH ABG pO2 ABG HCO3 ABG O2 Saturation ABG Base Excess ABG Hemoglobin Oxyhemoglobin Sodium Potassium Chloride Carbon Dioxide BUN Creatinine Glucose POC Glucose 116 H 121 H Calcium Phosphorus Magnesium ALT Ammonia Total Protein Albumin Folate TSH Hepatitis C Antibody Crossmatch 05/22/22 05/22/22 05/22/22 03:59 06:00 07:33 WBC RBC Hgb Hct RDW Plt Count Lymph % (Auto) [place] % (Auto) Lymph # (Auto) [place] # (Auto) Seg Neutrophils % ABG pH ABG pO2 ABG HCO3 ABG O2 Saturation ABG Base Excess ABG Hemoglobin Oxyhemoglobin Sodium 134 L Potassium Chloride 94.7 L Carbon Dioxide BUN 44 H Creatinine 5.7 H Glucose POC Glucose 135 H Calcium 7.9 L Phosphorus Magnesium 1.60 L ALT Ammonia Total Protein Albumin Folate TSH Hepatitis C Antibody Crossmatch See Detail 05/22/22 05/22/22 05/22/22 16:55 21:28 22:53 WBC RBC 2.70 L Hgb 7.9 L Hct 24.1 L RDW 20.3 H Plt Count 110 L Lymph % (Auto) [place] % (Auto) Lymph # (Auto) [place] # (Auto) Seg Neutrophils % ABG pH ABG pO2 ABG HCO3 ABG O2 Saturation ABG Base Excess ABG Hemoglobin Oxyhemoglobin Sodium Potassium Chloride Carbon Dioxide BUN Creatinine Glucose POC Glucose 146 H 126 H Calcium Phosphorus Magnesium ALT Ammonia Total Protein Albumin Folate TSH Hepatitis C Antibody Crossmatch 05/22/22 05/22/22 05/23/22 22:53 22:53 04:00 WBC RBC 2.84 L Hgb 8.4 L Hct 25.5 L RDW 20.5 H Plt Count 108 L Lymph % (Auto) [place] % (Auto) Lymph # (Auto) [place] # (Auto) Seg Neutrophils % ABG pH ABG pO2 ABG HCO3 ABG O2 Saturation ABG Base Excess ABG Hemoglobin Oxyhemoglobin Sodium 136 L Potassium Chloride 97.6 L Carbon Dioxide BUN 30 H Creatinine 3.9 H Glucose 132 H POC Glucose Calcium Phosphorus 2.20 L D Magnesium ALT Ammonia Total Protein Albumin Folate TSH Hepatitis C Antibody Crossmatch 05/23/22 05/24/22 05/24/22 04:17 05:15 08:15 WBC RBC 2.79 L Hgb 8.0 L Hct 24.6 L RDW 20.2 H Plt Count 133 L Lymph % (Auto) 6.0 L [place] % (Auto) 9.7 H Lymph # (Auto) 0.5 L [place] # (Auto) 0.9 H Seg Neutrophils % 82.8 H ABG pH ABG pO2 ABG HCO3 ABG O2 Saturation ABG Base Excess ABG Hemoglobin Oxyhemoglobin Sodium 134 L Potassium 5.8 H D Chloride 96.4 L Carbon Dioxide BUN 32 H 48 H Creatinine 4.1 H 5.4 H Glucose 107 H POC Glucose Calcium Phosphorus 2.30 L Magnesium ALT Ammonia Total Protein Albumin Folate TSH Hepatitis C Antibody Crossmatch 05/24/22 05/25/22 05/25/22 08:15 12:00 12:57 WBC RBC 2.33 L Hgb 7.0 L Hct 22.0 L RDW 20.5 H Plt Count 134 L Lymph % (Auto) 10.8 L [place] % (Auto) 13.1 H Lymph # (Auto) 0.6 L [place] # (Auto) Seg Neutrophils % 74.5 H ABG pH 7.494 H ABG pO2 61.1 L ABG HCO3 28.5 H ABG O2 Saturation ABG Base Excess 4.9 H ABG Hemoglobin 6.8 L Oxyhemoglobin 94.5 L Sodium Potassium Chloride Carbon Dioxide BUN Creatinine Glucose POC Glucose Calcium Phosphorus Magnesium ALT Ammonia 24.0 L Total Protein Albumin Folate TSH Hepatitis C Antibody Crossmatch 05/25/22 05/26/22 05/26/22 12:57 04:11 04:11 WBC RBC 2.86 L Hgb 8.2 L Hct 25.7 L RDW 19.8 H Plt Count Lymph % (Auto) [place] % (Auto) Lymph # (Auto) [place] # (Auto) Seg Neutrophils % ABG pH ABG pO2 ABG HCO3 ABG O2 Saturation ABG Base Excess ABG Hemoglobin Oxyhemoglobin Sodium 136 L Potassium 5.1 H 5.3 H Chloride 97.0 L 97.8 L Carbon Dioxide BUN 40 H 46 H Creatinine 5.4 H 5.7 H Glucose POC Glucose Calcium Phosphorus Magnesium ALT Ammonia Total Protein Albumin Folate TSH Hepatitis C Antibody Crossmatch 05/27/22 05/27/22 05/27/22 04:33 04:33 15:37 WBC RBC 2.90 L Hgb 8.3 L Hct 25.4 L RDW 19.7 H Plt Count Lymph % (Auto) [place] % (Auto) Lymph # (Auto) [place] # (Auto) Seg Neutrophils % ABG pH ABG pO2 ABG HCO3 ABG O2 Saturation ABG Base Excess ABG Hemoglobin Oxyhemoglobin Sodium Potassium Chloride Carbon Dioxide BUN Creatinine Glucose POC Glucose Calcium Phosphorus Magnesium ALT Ammonia Total Protein Albumin Folate 6.08 L TSH 8.200 H Hepatitis C Antibody Crossmatch 05/27/22 05/28/22 15:37 11:38 WBC RBC Hgb Hct RDW Plt Count Lymph % (Auto) [place] % (Auto) Lymph # (Auto) [place] # (Auto) Seg Neutrophils % ABG pH ABG pO2 ABG HCO3 ABG O2 Saturation ABG Base Excess ABG Hemoglobin Oxyhemoglobin Sodium 136 L Potassium Chloride 96.8 L Carbon Dioxide 31 H BUN 29 H Creatinine 4.6 H Glucose 103 H POC Glucose 112 H Calcium Phosphorus Magnesium ALT Ammonia Total Protein Albumin Folate TSH Hepatitis C Antibody Crossmatch Allied health notes reviewed: nursing
[2022-05-28] MEDS: ALPRAZolam 0.5 MG TAB PO PRN (23:09)
--- NOTE | 2022-05-29 07:59 | Progress Note ---
Assessment and Plan - Patient Problems (1) Hypertensive chronic kidney disease with stage 5 chronic kidney disease or end stage renal disease Current Visit: Yes Status: Acute Plan to address problem: Follow-up blood pressure on current medications (2) Pleural effusion, right Current Visit: Yes Status: Acute Plan to address problem: Status post thoracentesis with 2 L fluid drained (3) Chronic systolic heart failure Current Visit: Yes Status: Acute Plan to address problem: Continue with fluid removal on dialysis. Continue beta-carsisa and angiotensin receptor carissa (4) Acute respiratory failure with hypoxia Current Visit: Yes Status: Acute Plan to address problem: Improved postthoracentesis. Continue management by pulmonary. (5) Anemia in CKD (chronic kidney disease) Current Visit: Yes Status: Acute Plan to address problem: Given erythropoietin on dialysis (6) Hyperkalemia Current Visit: Yes Status: Acute Plan to address problem: Hemodialysis on a low potassium bath and follow-up potassium (7) ESRD on dialysis Current Visit: Yes Status: Chronic Plan to address problem: Continue hemodialysis on a Wednesday, and Wednesday schedule Subjective Date of service: 05/29/22 Principal diagnosis: AHRF; AMS; Left SDH; ESRD on dialysis; COPD; H/O Cocaine abuse Interval history: Patient seen lying in bed. Patient still confused but awake. No complaints Objective - Exam Narrative Exam: Nonrebreather mask Middle-aged male lying in bed in no acute distress HEENT: NCAT, pink conjunctiva, anicteric sclera Neck: Supple, no venous distention CVS: S1S2 RRR with no murmur, rub or gallop Chest: Coarse breath sounds diminished breath sounds right lower zone, improved Abdomen: Protuberant, soft, ostomy left lower quadrant, nontender, no organomegaly, bowel sounds are present Extremities: No edema, muscle wasting Genitourinary deferred Skin warm and dry Neuro: Awake, alert no focal deficits - Vital Signs Vital signs: Vital Signs - 12hr 05/28/22 05/28/22 05/28/22 20:00 20:45 21:00 Temperature 98.3 F Pulse Rate 89 83 91 H Pulse Rate [ 83 From Monitor] Respiratory 16 15 Rate Blood Pressure 93/58 93/58 97/72 O2 Sat by Pulse 99 98 Oximetry O2 Sat by Pulse 100 Oximetry [ Anterior Bilateral Throughout] 05/28/22 05/28/22 05/28/22 21:17 22:00 23:00 Temperature Pulse Rate 83 99 H Pulse Rate [ From Monitor] Respiratory 18 Rate Blood Pressure 93/58 103/53 107/59 O2 Sat by Pulse 100 96 Oximetry O2 Sat by Pulse Oximetry [ Anterior Bilateral Throughout] 05/28/22 05/29/22 05/29/22 23:01 00:00 00:01 Temperature 97.6 F Pulse Rate 93 H 93 H Pulse Rate [ 93 H From Monitor] Respiratory 13 13 Rate Blood Pressure 107/59 107/59 O2 Sat by Pulse 96 100 88 Oximetry O2 Sat by Pulse Oximetry [ Anterior Bilateral Throughout] 05/29/22 05/29/22 05/29/22 01:00 02:00 03:00 Temperature Pulse Rate 104 H 95 H 103 H Pulse Rate [ From Monitor] Respiratory 17 19 22 Rate Blood Pressure 103/58 94/54 109/42 O2 Sat by Pulse 99 95 94 Oximetry O2 Sat by Pulse Oximetry [ Anterior Bilateral Throughout] 05/29/22 05/29/22 05/29/22 04:00 04:01 05:00 Temperature Pulse Rate 105 H 104 H Pulse Rate [ 105 H From Monitor] Respiratory 22 22 Rate Blood Pressure 83/47 97/58 O2 Sat by Pulse 96 96 99 Oximetry O2 Sat by Pulse Oximetry [ Anterior Bilateral Throughout] 05/29/22 05/29/22 06:00 07:00 Temperature Pulse Rate 119 H Pulse Rate [ From Monitor] Respiratory 18 Rate Blood Pressure 104/69 99/69 O2 Sat by Pulse 91 96 Oximetry O2 Sat by Pulse Oximetry [ Anterior Bilateral Throughout] - Lab 05/27/22 15:37 05/27/22 15:37 Most recent lab results ABG pH 7.494 pH Units (7.350-7.450) H 05/25/22 12:00 ABG pCO2 38.0 mm Hg 05/25/22 12:00 ABG pO2 61.1 mm Hg (80.0-90.0) L 05/25/22 12:00 ABG HCO3 28.5 mmol/L (20.0-26.0) H 05/25/22 12:00 ABG O2 Saturation 96.8 % (95.0-99.0) 05/25/22 12:00 Calcium 8.9 mg/dL (8.4-10.2) 05/27/22 15:37 Phosphorus 3.90 mg/dL (2.5-4.5) D 05/24/22 05:15 Magnesium 2.20 mg/dL (1.7-2.3) 05/24/22 05:15 Medications & Allergies - Medications Allergies/Adverse Reactions: Allergies No Known Allergies Allergy (Unverified 05/17/22 15:36) Home Medications: Home Medications Medication Instructions Recorded Confirmed Last Taken Type ALPRAZolam 0.5 mg PO BID 05/19/22 05/19/22 Unknown History Clopidogrel [Plavix] 75 mg PO QDAY 05/19/22 05/19/22 Unknown History Losartan [Cozaar] 100 mg PO QDAY 05/19/22 05/19/22 Unknown History Metoprolol [Lopressor TAB] 100 mg PO BID 05/19/22 05/19/22 Unknown History NIFEdipine [Nifedipine ER] 60 mg PO BID 05/19/22 05/19/22 Unknown History Oxycodone HCl/Acetaminophen 1 each PO Q8H PRN 05/19/22 05/19/22 Unknown History [Oxycodone-Acetaminophen 10-325] QUEtiapine [SEROquel] 50 mg PO BID 05/19/22 05/19/22 Unknown History Trelegy Ellipta 100-62.5-25 100 mcg INHALATION DAILY 05/19/22 05/19/22 Unknown History dilTIAZem [CarDIZEM] 180 mg PO BID 05/19/22 05/19/22 Unknown History Active Medications: Generic Name Dose Route Start Last Admin Trade Name Freq PRN Reason Stop Dose Admin Acetaminophen 650 mg 05/17/22 14:26 05/24/22 01:13 Acetaminophen 325 Mg Tab PO 650 mg Q4H PRN Administration Pain MILD(1-3)/Fever >100.5/DYER Albumin Human 25 gm 05/18/22 09:10 05/22/22 14:54 Albumin Human 25% (25 Gm/100 Ml) Inj IV 25 gm TOM PRN Administration Hypotension Albuterol 2.5 mg 05/18/22 06:02 Albuterol 2.5 Mg/3 Ml Nebu IH Q3HRT PRN Wheezing Alprazolam 0.5 mg 05/23/22 12:50 05/28/22 23:09 Alprazolam 0.5 Mg Tab PO 0.5 mg Q8HR PRN Administration Anxiety/agitation Amiodarone HCl 200 mg 05/26/22 14:00 05/28/22 21:17 Amiodarone 200 Mg Tab PO 200 mg BID DAQUAN Administration Lipase/Protease/Amylase 1 each 05/26/22 11:06 Lipase 10,500/Protease 25,000/Amylase 43,750 (Units) Dr Martinez FEEDTUBE PRN PRN For Clogged Feeding Tube Aspirin 81 mg 05/21/22 10:00 05/28/22 10:29 Aspirin Ec 81 Mg Tab PO 81 mg QDAY DAQUAN Administration Dextrose 50 ml 05/18/22 15:00 Dextrose 50% In Water (25gm) 50 Ml Syringe IV Q30MIN PRN Hypoglycemia Protocol Diltiazem HCl 60 mg 05/25/22 14:00 05/28/22 20:45 Diltiazem 60 Mg Tab PO 60 mg TID DAQUAN Administration Diphenhydramine HCl 25 mg 05/20/22 13:30 05/24/22 23:31 Diphenhydramine 25 Mg Cap PO 25 mg Q6H PRN Administration Itching Docusate Sodium 100 mg 05/22/22 10:00 05/28/22 21:17 Docusate Sodium 100 Mg Cap PO Not Given BID [facility] Epoetin Jacinto-epbx 10,000 unit 05/18/22 09:10 05/28/22 19:30 Epoetin Jacinto-Epbx 10,000 Unit/1 Ml Vial IV 10,000 unit TOM PRN Administration hemodialysis Famotidine 20 mg 05/20/22 10:00 05/28/22 10:29 Famotidine 20 Mg Tab PO 20 mg QDAY [facility] Administration Sodium Chloride 100 mls @ 999 mls/hr 05/24/22 08:11 Nacl 0.9% IV TOM PRN Hypotension Losartan Potassium 50 mg 05/26/22 10:00 05/28/22 10:38 Losartan 50 Mg Tab PO Not Given QDAY [facility] Metoprolol Tartrate 100 mg 05/25/22 22:00 05/28/22 21:17 Metoprolol Tartrate 100 Mg Tab PO Not Given BID [facility] Ondansetron HCl 4 mg 05/24/22 17:30 Ondansetron 4 Mg/2 Ml Inj IV Q8H PRN Nausea And Vomiting Oxycodone/Acetaminophen 1 tab 05/21/22 11:00 05/28/22 15:37 Oxycodone /Acetaminophen 5-325mg Tab PO 1 tab Q6H PRN Administration Pain, Moderate (4-6) Quetiapine Fumarate 150 mg 05/24/22 18:00 05/28/22 10:28 Quetiapine 100 Mg Tab PO 150 mg QDAY DAQUAN Administration Quetiapine Fumarate 200 mg 05/24/22 17:30 05/28/22 21:17 Quetiapine 100 Mg Tab PO 200 mg QHS DAQUAN Administration Senna/Docusate Sodium 1 tab 05/22/22 22:00 05/28/22 21:17 Sennosides/Docusate Sodium 8.6/50 Mg Tab PO Not Given QHS DAQUAN Simple Syrup 15 ml 05/26/22 11:06 Simple Syrup 15 Ml FEEDTUBE PRN PRN Hypoglycemia Simple Syrup 30 ml 05/26/22 11:06 Simple Syrup 15 Ml FEEDTUBE PRN PRN Hypoglycemia Sodium Bicarbonate 325 mg 05/26/22 11:06 Sodium Bicarbonate 325 Mg Tab FEEDTUBE PRN PRN For Clogged Feeding Tube Sodium Chloride 10 ml 05/17/22 22:00 05/28/22 21:17 Sodium Chloride 0.9% 10 Ml Flush Syringe IV 10 ml BID DAQUAN Administration Sodium Chloride 10 ml 05/17/22 14:26 Sodium Chloride 0.9% 10 Ml Flush Syringe IV PRN PRN LINE FLUSH
--- NOTE | 2022-05-29 09:10 | Progress Note ---
Assessment and Plan Assessment and plan: Assessment and plan: This is a 56-year-old male with HTN, cardiomyopathy, ESRD on HD, COPD, former cocaine abuser, SDH with left shift and hemoperitoneum s/p decompressive cranio jason and paracentesis, acute hypoxic respiratory failure s/p tracheostomy with eventual decannulation who was admitted with acute hypoxic respiratory failure requiring ventilatory support. Hospital course to date: 05/18: Patient is following commands remains sedated on Precedex. Patient will receive hemodialysis today. Likely will CPAP tomorrow. NG tube placed and sta rted on tube feedings. 05/19: S/p extubation, stable on RA. Patient is s/p fall today, now c/o of Left elbow and pelvic pain. Orders placed for Lt. elbow X-ray and CT head/lumbar spine/pelvic. PRN analgesia orderd for pain control. Patient remains in Afib with RVR HR in the 120-130s, currently on PO amio. Patient's home meds list is available will resume home medications for rate control. Possible Cardiology consult if Afib RVR persists. Will keep patient in the ICU for another 24hrs post extubation, possible transfer to the floor tomorrow if patient remains stable. 05/20: Increase anxiety and agitation overnight, back on low dose precedex gtt. Lt. elbow X-ray and CT scans reviewed, fractures enthesophytes, superior and inferior pubic rami with soft tissue hematoma reported. H&H is stable, no s/s of any active bleeding. Ortho consulted for further eval and treat. Continue to trend CBC and PRN analgesia for pain control. Patient remains in Afib with RVR, on BB, BP stable. Given patient's current Afib with RVR, will continue VTE proph for now, awaiting Cardio and Ortho recommendations. Cardiology also consulted. Patient's home seroquel and antianxiety regime resumed. Wean off precedex gtt for RASS goal of 0 to -1. Plan for HD today per Nephro. PT/OT ordered. 05/21: Remains on precedex gtt due to increase agitation and combativeness overnight, symptoms resolved this am. Patient's family reported multiple psych issues since childhood. Seroquel adjusted and Mental health/psych consulted. Patient remains in Afib but in rate control this am. Cardiology recommendations appreciated, 2D echo pending. Attending also discussed with Ortho, with no indication of any surgery at this time. Ortho recommends PT/OT and weight bearing as tolerated. Full consult pending. JESSICA alston ordered. PRN analgesia for pain control. 05/22: Remains on precedex, more calm and appropriate this am. Remains on 2L NC, hypoxia noted overnight on RA, recent CXR noted with increase CHF/pulmonary edema. Patient remains in Afib but in control rate. 2D echo and cardiology recommendations noted. Patient with low BP this am, BB reduced to 50mg BID and antihypertensive therapy held today. H&H also dropped this am and worsen thrombocytopenia this am, no s/s of any active bleeding. Will hold AC for now, 1unit of PRBCs rdered and iHD today per Nephro. Patient has been refusing PT and OOB activity, still c/o of buttocks and hip pain. Continue to encourage OOB and physical therapy. PRN analgesia for pain control. Monitor and replace electrolytes as needed. 05/23: Mentation remains labile. Awake but still with periods of confusion and agitation. Off precedex gtt this am. Patient tolerated HD yesterday 3L removed, stable on 2L NC. In Afib with RVR, HR in 140s this am. D/w Cardio plan to adjust regimen therapy for rate control. Okay to transfer patient to IMCU per CCM. 05/24: Patient seen and examined, Cardiology evaluated the patient yesterday made some adjustment to BP management. Patient remains confused with AMS and cxr obtained this morning due to worsening Hypoxia shows increased opacities to the Right lung. Sent to the Pulmonary doctor for review. Will keep NPO for now and may need dobhuff if prolonged AMS. Patient underwent speech eval prior and passed 05/19. Considering the waxing and waning mentation, will consider obtaining MRI Brain when stable and also obtain Neurology consult. Continue IMCU care, may need to move back to ICU if no improvement. Discussed with Pulm and Darline. HD ordered for today 05/25: Awake, still confused with periods of agitation. MRI and Neurology consult pending. Patient remains in Afib RVR this am with low BP. S/p iHD yesterday 2L removed. still on NRB SPO2 above 95%. Hold all BB, cardizem, and all antihypertensive today. X1 of IV albumin and 500cc IVF bolus today, and midodrine was initiated. Patient is also hyperkalemic this am, plan for iHD again today. Thoracentesis pending for moderate pleural effusion. 05/26: Awake but still confused as reported on prior encounters. Remains in Afib RVR rate in 140-150's....amiodorone added by cardiology. Midodrine stopped as patient blood pressure was elevated today in 130's systolic. S/p thoracentesis, will need to wean off nrb as sats tolerate. 05/27; Awake, follows more commands today. Less aggitated, responding well to xanax. Thoracentesis completed yesterday, approx 2L removed yesterday. CT brain ordered yesterday evening negative for acute findings. MR brain still pending, d/w RN to see if patient could get study completed today. HR remains elevated, max rate 140 this AM. Continue rate/rhythm control with dilt/metoprolol/amiodorone. Spoke with and updated about plan for today. 05/28: HR well controlled on amio. MR brain negative for acute findings. Placement currently of concern. Will work with CM for safe discharge. 05/29: pending placement to IRU vs SNF. D/w CM who states patient is being eval by [facility]. Assessment and Plan Neuro: Acute Metabolic Encephalopathy-improved h/o SDH with left shift s/p decompressive craniotomy, h/o cocaine abuse/Spych issues S/p Fall -S/p extubation, off sedations -AAO, but with periods of disorientation, very impulsive -Remains on precedex overnight due to increase anxiety/agitation/combativeness -Patient's family reported multiple psych issues since childhood -seroquel adjusted, continue PRN xanax -Wean precededx gtt for RASS goal 0 to -1 -Mental Health/psych consulted -Reorientation as needed -Maintain sleep-wake cycle -As needed analgesia -Fall precaution -PT/OT consulted Cardiac: Atrial Fibrilation with RVR, Systolic HFrEF, Moderate Pulmonary HTN h/o cardiomyopathy, HTN -Patient remains in Afib, but in rate control this am. VSS -Cardiology consulted, appreciate recommendations -2D echo reviewed, LVEF 40-45%, moderate pulmonary HTN- RSVP 45-50 -Low BP today, all antihypertensive and antiarrhytmic therapy held -X1 dose of IV albumin and 500 cc NS, midodrine added -Blood pressure monitoring per protocol -Maintain SBP less than 160 -AC held due to anemia and thrombocytopenia Respiratory: Acute hypoxic respiratory failure, s/p tracheostomy with eventual decannulation, COPD, Moderate Right Pleural Effusion -CCM consulted, appreciate recommendations -Intubated on 05/17 at OSH; 05/19 s/p extubation -Now on NRB -Recent CXR reviewed, with moderate right pleural effusuion -Thoracentesis pending -Continue iHD per Nephro, 2L removed yesterday -Continue O2 supplementation and wean as tolerated -SPO2 monitoring for SPO2 goal aboev 92% -Of note patient self decannulated on 05/05 Superior and Inferior Pubic Rami fractures Left Enthesophytes Fracture S/p Fall -Noted from Lt. Elbow X-ray and CT scan, see report for details -Ortho consulted, appreciate recommendations -Attending also discussed with Ortho, with no indication of any surgery at this time. -Ortho recommends PT/OT and weight bearing as tolerated. -LUE sling ordered. -PT/OT consulted -Patient has been refusing PT and OOB activity -Fall precaution -Continue to encourage OOB and physical therapy -PRN Analgesia for pain control GI: Moderate protein calorie malnutrition -S/p PEG tube placement, however now off -Patient removed Richter catheter that was in the PEG-tube stoma, dressing present -Patient passed bedside swallow, renal diet ordered -Speech also following -S/p paracentesis at [facility] on 05/06 with removal of 2.7 L : ESRD on HD, hyperkalemia -Nephrology consulted, appreciate recommendations -Continue HD per Nephro -Monitor intake and output -Renally dose medications -Avoid nephrotoxic medications -Monitor and replace electrolytes as needed -Trend BMP Heme: Anemia of Chronic Disease, Thrombocytopenia -Probably chronic 2/2 of ESRD -s/p 1unit of PRBCs -H&H stable and plt improved -No s/s of any active bleeding -Continue Epogen with iHD per Nephro -AC held due to anemia and thrombocytopenia -Transfuse for hgb less than 7 ID: Sepsis (POA) -Leukopenia, CXR showed left-sided effusion with associated opacity and mild right basilar atelectasis -COVID-19 PCR negative, MRSA PCR negative -s/p Antibiotic therapy with cefepime -f/u blood culture -Monitor WBC and temperature curve GI/DVT Prophylaxis -PPI- pepcid -SCDs to bilateral lower extremities while in bed The high probability of a clinically significant, sudden or life threatening deterioration of the [multi] system(s) required my full and direct attention, intervention and personal management. The aggregate critical care time was [60] minutes. This time is in addition to time spent performing reported procedures but includes the following: [x] Data Review and interpretation [x] Patient assessment and monitoring of vital signs [x] Documentation [x] Medication orders and management Disposition Plan: IMCU Total Time Spent with Patient (Minutes): 60 History Interval history: No acute complaints or overnight issues. Hospitalist Physical - Physical exam Narrative exam: - Physical exam Narrative exam: General appearance: Present: no acute distress, cachectic - EENT Eyes: Present: PERRL ENT: hearing intact - Neck Neck: Present: normal ROM - Respiratory Respiratory effort: normal Respiratory: bilateral: diminished - Cardiovascular Rhythm: irregularly irregular, rate controlled afib, 90-100 Heart Sounds: Present: S1 & S2 - Extremities Extremities: no ischemia, pulses intact, pulses symmetrical Peripheral Pulses: within normal limits - Abdominal General gastrointestinal: soft, non-distended, normal bowel sounds - Integumentary Integumentary: Present: warm, dry - Psychiatric Psychiatric: other (Confused, Impulsive at time) - Neurologic Neurologic: moves all extremities, other (Awake but confused, with periods of agitation) - Allied Health Allied health notes reviewed: nursing, case management - Constitutional Vitals: Temp Pulse Resp BP Pulse Ox 99 F 129 H 26 H 111/82 100 05/29/22 08:00 05/29/22 08:16 05/29/22 08:16 05/29/22 08:16 05/29/22 08:16 General appearance: Present: mild distress, cachectic Results - Labs CBC & Chem 7: 05/27/22 15:37 05/27/22 15:37 Labs: Laboratory Last Values WBC 6.5 K/mm3 (4.5-11.0) 05/27/22 15:37 RBC 2.90 M/mm3 (3.65-5.03) L 05/27/22 15:37 Hgb 8.3 gm/dl (11.8-15.2) L 05/27/22 15:37 Hct 25.4 % (35.5-45.6) L 05/27/22 15:37 MCV 88 fl (84-94) 05/27/22 15:37 MCH 29 pg (28-32) 05/27/22 15:37 MCHC 33 % (32-34) 05/27/22 15:37 RDW 19.7 % (13.2-15.2) H 05/27/22 15:37 Plt Count 176 K/mm3 (140-440) 05/27/22 15:37 Lymph % (Auto) 10.8 % (13.4-35.0) L 05/25/22 12:57 [place] % (Auto) 13.1 % (0.0-7.3) H 05/25/22 12:57 Eos % (Auto) 1.5 % (0.0-4.3) 05/25/22 12:57 Baso % (Auto) 0.1 % (0.0-1.8) 05/25/22 12:57 Lymph # (Auto) 0.6 K/mm3 (1.2-5.4) L 05/25/22 12:57 [place] # (Auto) 0.8 K/mm3 (0.0-0.8) 05/25/22 12:57 Eos # (Auto) 0.1 K/mm3 (0.0-0.4) 05/25/22 12:57 Baso # (Auto) 0.0 K/mm3 (0.0-0.1) 05/25/22 12:57 Seg Neutrophils % 74.5 % (40.0-70.0) H 05/25/22 12:57 Seg Neutrophils # 4.3 K/mm3 (1.8-7.7) 05/25/22 12:57 ABG pH 7.494 pH Units (7.350-7.450) H 05/25/22 12:00 ABG pCO2 38.0 mm Hg 05/25/22 12:00 ABG pO2 61.1 mm Hg (80.0-90.0) L 05/25/22 12:00 ABG HCO3 28.5 mmol/L (20.0-26.0) H 05/25/22 12:00 ABG O2 Saturation 96.8 % (95.0-99.0) 05/25/22 12:00 ABG O2 Content 9.1 (0.0-44) 05/25/22 12:00 ABG Base Excess 4.9 mmol/L (-2.0-3.0) H 05/25/22 12:00 ABG Hemoglobin 6.8 gm/dl (14.0-18.0) L 05/25/22 12:00 ABG Carboxyhemoglobin 1.8 % (0.0-5.0) 05/25/22 12:00 ABG Methemoglobin 0.5 % (0.0-1.5) 05/25/22 12:00 Oxyhemoglobin 94.5 % (95.0-99.0) L 05/25/22 12:00 FiO2 100 % 05/25/22 12:00 Sodium 136 mmol/L (137-145) L 05/27/22 15:37 Potassium 4.3 mmol/L (3.6-5.0) 05/27/22 15:37 Chloride 96.8 mmol/L (98-107) L 05/27/22 15:37 Carbon Dioxide 31 mmol/L (22-30) H 05/27/22 15:37 Anion Gap 13 mmol/L 05/27/22 15:37 BUN 29 mg/dL (9-20) H 05/27/22 15:37 Creatinine 4.6 mg/dL (0.8-1.3) H 05/27/22 15:37 Estimated GFR 13 ml/min 05/27/22 15:37 BUN/Creatinine Ratio 6 % 05/27/22 15:37 Glucose 103 mg/dL (75-100) H 05/27/22 15:37 POC Glucose 112 mg/dL (70-105) H 05/28/22 11:38 Lactic Acid 1.00 mmol/L (0.7-2.0) 05/25/22 13:20 Calcium 8.9 mg/dL (8.4-10.2) 05/27/22 15:37 Phosphorus 3.90 mg/dL (2.5-4.5) D 05/24/22 05:15 Magnesium 2.20 mg/dL (1.7-2.3) 05/24/22 05:15 Total Bilirubin 0.40 mg/dL (0.1-1.2) 05/17/22 14:28 AST 7 units/L (5-40) 05/17/22 14:28 ALT < 5 units/L (7-56) L 05/17/22 14:28 Alkaline Phosphatase 78 units/L (35-129) 05/17/22 14:28 Ammonia 24.0 umol/L (25-60) L 05/24/22 08:15 Lactate Dehydrogenase 149 units/L (91-180) 05/25/22 12:57 Total Protein 6.1 g/dL (6.3-8.2) L 05/17/22 14:28 Albumin 2.9 g/dL (3.9-5) L 05/17/22 14:28 Albumin/Globulin Ratio 0.9 % 05/17/22 14:28 Vitamin B12 633.2 pg/mL (211-911) 05/27/22 04:33 Folate 6.08 ng/mL (7.3-26.0) L 05/27/22 04:33 TSH 8.200 mlU/mL (0.270-4.200) H 05/27/22 04:33 Fluid Type Pleural 05/26/22 11:59 Fluid Color Vicenta 05/26/22 11:59 Fluid Appearance Cloudy 05/26/22 11:59 Fluid WBC 1375 /mm3 05/26/22 11:59 Fluid RBC 74300 /mm3 05/26/22 11:59 Fluid Seg Neutrophils 88.0 % 05/26/22 11:59 Fluid Lymphocytes 6.0 % 05/26/22 11:59 Fluid Monocytes 6.0 % 05/26/22 11:59 Nasal Screen MRSA (PCR) Negative (Negative) 05/18/22 08:30 Syphilis IgG/IgM Ab Nonreactive (NonReactive) 05/27/22 04:33 Coronavirus (PCR) Negative (Negative) 05/24/22 11:05 Hepatitis A IgM Ab Non-reactive (NonReactive) 05/18/22 18:10 Hep Bs Antigen Non-reactive (Negative) 05/18/22 18:10 Hep B Core IgM Ab Non-reactive (NonReactive) 05/18/22 18:10 Hepatitis C Antibody Reactive (NonReactive) A 05/18/22 18:10 Blood Type A NEGATIVE 05/22/22 06:00 Antibody Screen Negative 05/22/22 06:00 Crossmatch See Detail 05/22/22 06:00 Microbiology: Microbiology 05/26/22 11:59 Pleural Fluid - Pleura,Rt Lung Body Fluid Culture - Prelimin carmen 05/24/22 10:45 Peripheral/Venous Blood Culture - Preliminary NO GROWTH AFTER 4 DAYS 05/24/22 10:15 Peripheral/Venous Blood Culture - Preliminary NO GROWTH AFTER 4 DAYS Active Medications - Current Medications Current Medications: Generic Name Dose Route Start Last Admin Trade Name Freq PRN Reason Stop Dose Admin Acetaminophen 650 mg 05/17/22 14:26 05/24/22 01:13 Acetaminophen 325 Mg Tab PO 650 mg Q4H PRN Administration Pain MILD(1-3)/Fever >100.5/DYER Albumin Human 25 gm 05/18/22 09:10 05/22/22 14:54 Albumin Human 25% (25 Gm/100 Ml) Inj IV 25 gm TOM PRN Administration Hypotension Albuterol 2.5 mg 05/18/22 06:02 Albuterol 2.5 Mg/3 Ml Nebu IH Q3HRT PRN Wheezing Alprazolam 0.5 mg 05/23/22 12:50 05/28/22 23:09 Alprazolam 0.5 Mg Tab PO 0.5 mg Q8HR PRN Administration Anxiety/agitation Amiodarone HCl 200 mg 05/26/22 14:00 05/28/22 21:17 Amiodarone 200 Mg Tab PO 200 mg BID DAQUAN Administration Lipase/Protease/Amylase 1 each 05/26/22 11:06 Lipase 10,500/Protease 25,000/Amylase 43,750 (Units) Dr Martinez FEEDTUBE PRN PRN For Clogged Feeding Tube Aspirin 81 mg 05/21/22 10:00 05/28/22 10:29 Aspirin Ec 81 Mg Tab PO 81 mg QDAY DAQUAN Administration Dextrose 50 ml 05/18/22 15:00 Dextrose 50% In Water (25gm) 50 Ml Syringe IV Q30MIN PRN Hypoglycemia Protocol Diltiazem HCl 60 mg 05/25/22 14:00 05/28/22 20:45 Diltiazem 60 Mg Tab PO 60 mg TID DAQUAN Administration Diphenhydramine HCl 25 mg 05/20/22 13:30 05/24/22 23:31 Diphenhydramine 25 Mg Cap PO 25 mg Q6H PRN Administration Itching Docusate Sodium 100 mg 05/22/22 10:00 05/28/22 21:17 Docusate Sodium 100 Mg Cap PO Not Given BID DAQUAN Epoetin Jacinto-epbx 10,000 unit 05/18/22 09:10 05/28/22 19:30 Epoetin Jacinto-Epbx 10,000 Unit/1 Ml Vial IV 10,000 unit TOM PRN Administration hemodialysis Famotidine 20 mg 05/20/22 10:00 05/28/22 10:29 Famotidine 20 Mg Tab PO 20 mg QDAY [facility] Administration Sodium Chloride 100 mls @ 999 mls/hr 05/24/22 08:11 Nacl 0.9% IV TOM PRN Hypotension Losartan Potassium 50 mg 05/26/22 10:00 05/28/22 10:38 Losartan 50 Mg Tab PO Not Given QDAY [facility] Metoprolol Tartrate 100 mg 05/25/22 22:00 05/28/22 21:17 Metoprolol Tartrate 100 Mg Tab PO Not Given BID [facility] Ondansetron HCl 4 mg 05/24/22 17:30 Ondansetron 4 Mg/2 Ml Inj IV Q8H PRN Nausea And Vomiting Oxycodone/Acetaminophen 1 tab 05/21/22 11:00 05/28/22 15:37 Oxycodone /Acetaminophen 5-325mg Tab PO 1 tab Q6H PRN Administration Pain, Moderate (4-6) Quetiapine Fumarate 150 mg 05/24/22 18:00 05/28/22 10:28 Quetiapine 100 Mg Tab PO 150 mg QDAY DAQUAN Administration Quetiapine Fumarate 200 mg 05/24/22 17:30 05/28/22 21:17 Quetiapine 100 Mg Tab PO 200 mg QHS DAQUAN Administration Senna/Docusate Sodium 1 tab 05/22/22 22:00 05/28/22 21:17 Sennosides/Docusate Sodium 8.6/50 Mg Tab PO Not Given QHS DAQUAN Simple Syrup 15 ml 05/26/22 11:06 Simple Syrup 15 Ml FEEDTUBE PRN PRN Hypoglycemia Simple Syrup 30 ml 05/26/22 11:06 Simple Syrup 15 Ml FEEDTUBE PRN PRN Hypoglycemia Sodium Bicarbonate 325 mg 05/26/22 11:06 Sodium Bicarbonate 325 Mg Tab FEEDTUBE PRN PRN For Clogged Feeding Tube Sodium Chloride 10 ml 05/17/22 22:00 09/08/22 21:17 Sodium Chloride 0.9% 10 Ml Flush Syringe IV 10 ml BID DAQUAN Administration Sodium Chloride 10 ml 05/17/22 14:26 Sodium Chloride 0.9% 10 Ml Flush Syringe IV PRN PRN LINE FLUSH Nutrition/Malnutrition Assess - Dietary Evaluation Nutrition/Malnutrition Findings: Nutrition Notes Start: 05/18/22 14:16 Freq: Status: Active Protocol: Document 05/28/22 10:23 LUCERO (Rec: 05/28/22 10:42 LUCERO [id number]) Nutrition Notes Initial or Follow up Reassessment Current Diagnosis CKD (stage V CKD),COPD, Hypertension,Respiratory Failure,Malnutrition Other Pertinent Diagnosis Metabolic Encephalopathy, L- Elbow+Pelvic Fractures s/p Fall, ESRD+HD, ... Current Diet Mechanical Soft Diet (since B 05/27), D Suppl (from L-05/28) . Labs/Tests 05/27: Na 136, Cl 96.8, CO2 31 , BUN 29, Crea 4.6, Glu 103. Pertinent Medications 05/28: Nutritionally unremarkable. Height 6 ft 4 in Weight 76.3 kg [place] Body Weight (kg) 91.81 BMI 20.5 Weight change and time frame No body weight change reported in 10 days. Weight Status Appropriate Subjective/Other Information RD consult for routine F/U on TF tolerance/continuation. TF was discontinued and diet advanced to Mechanical Soft, no reports available on Pt's PO intake of meals at the time , will assess at F/U. I will prescribe Renal modification to current diet, to support Pt's CKD V/ESRD condition during LOS. I will restart the prescription of dietary supplements to compensate for possible poor or insufficient PO intake of meals during LOS. Pt extubated and on Nasal Cannula, O2 saturation @ 99%, according to Physical Assessment History notes. Pt presents Oropharyngeals Dysphagia, and missing teeth, according to Physical Assessment History notes. Procedure on 05/26: R- Thoracentresis, 2000ml of pleural fluid extracted, according to Progress notes. Percent of energy/protein needs met: Prescribed Mechanical Soft Diet provides for energy/ protein needs (2,048 Kcal/97 g ) during LOS. Burn Absent Trauma Absent GI Symptoms None Difficulty In Swallowing,Chewing Food Allergy No Skin Integrity/Comment R-hand abrasions+neck surgical woun Minimum of two criteria No Fluid Accumulation N/A Reduced Screening Unit Registered Nurse Strength N/A (non-severe) Protein-Calorie Malnutrition N\A #2 Nutrition Diagnosis Altered nutrition-related laboratory values Etiology CKD V, ESRD. As Evidenced by Signs and Symptoms 05/27: Na 136, Cl 96.8, CO2 31 , BUN 29, Crea 4.6, Glu 103. #1 Nutrition Diagnosis Swallowing difficulty Comments: TF was discontinued and diet advanced to Mechanical Soft. Diagnosis Progress(for reassessment Continues documentation) Is patient on ventilator? No Is Patient Ambulatory and/or Out of Bed Yes REE-([place]-[facility] Ject-ambulatory/OOB) [ [id number] [id number]] Calculation Used for Recommendations Kcal/kg Additional Notes Protein: >1.2 g/Kg ABW; >92 g/ day. Fluids: 1 ml/Kcal, or as per MD. Nutrition Intervention Change Diet Order: Modify current diet to Mechanical Soft -Renal- Diet, continue as tolerated. Nutrition Support: Discontinued. Add Supplement/Snack (indicate name/kcal Continue 8 fl oz Nepro w/ /protein ) CARBSTEADY; BID. Provides kCal: 850 Provides Protein (gm) 38 Goal #1 Compensate, through dietary supplementation, for possible poor or insufficient PO intake of meals during LOS. Goal #2 Help reach and maintain acceptable chemistry lab values during LOS. Goal #3 Adjust the dietary intervention to better serve Pt's needs and clinical conditions during LOS. Follow-Up By: 06/04/22 Additional Comments Continue monitoring food tolerance, %PO intake of meals , dietary supplements, and BM.
[2022-05-29] MEDS: ASPIRIN EC 81 MG TAB PO SCH (09:38)
[2022-05-29] MEDS: dilTIAZem 60 MG TAB PO SCH ×3 (09:38→22:49)
[2022-05-29] MEDS: AMIODARONE 200 MG TAB PO SCH ×2 (09:38→22:50)
[2022-05-29] MEDS: LOSARTAN 50 MG TAB PO SCH (09:38)
[2022-05-29] MEDS: QUEtiapine 100 MG TAB PO SCH ×2 (09:39→22:50)
[2022-05-29] MEDS: FAMOTIDINE 20 MG TAB PO SCH (09:39)
[2022-05-29] MEDS: METOPROLOL TARTRATE 100 MG TAB PO SCH ×2 (09:39→22:49)
[2022-05-29] MEDS: DOCUSATE SODIUM 100 MG CAP PO SCH ×2 (09:39→22:49)
[2022-05-29] MEDS: oxyCODONE /ACETAMINOPHEN 5-325MG TAB PO PRN (11:18)
--- NOTE | 2022-05-29 11:59 | Progress Note ---
Assessment and Plan This 56 year old Male transfered from [facility]. Patient developed severe respiratory distress at [facility] [place]. Patient intubated and placed on mechanical ventilation. Patient transfered to [facility] ICU for further management and placement of central venous acess. Patient was on mechanical ventilation in the past. Patient was weaned from the ventilator and decanulated him. Patient agitated and developed severe respiratory distress, patient intubated and placed on assist control and volume control mechanical ventilation. Patient has history of HTN, Cardiomyopathy, ESRD on dialysis, COPD, History of Cocaine abuse Originally admitted to [facility] on 03/23/22 with altered mental status and CT of head obtained showed large Subdural hematoma with left shift.and also had hemoperitoneum.Patient undergone decompressive craniotomy.Patient also undergone paracentesis. Patient intubated and placed on mechanical ventilation subsequently has tracheostomy and PEG placement. Transfered to [facility] at that point. Patient weaned from the ventilator, subsequently decanulated. Patient tolerated decanulation well. Patient is on room air yesterday with 100% O2 saturation. Patient very anxious, May have seizure like activity, patients respiratory status detriorated, patient reintubated and placed on assist control mechanical ventilation. According to the chart, patient has history of smoking and Cocaine use. and has children. No known drug allergies. ABG on mechanical ventilation, AC/VC rate 15, Tidal volume 450, PEEP 6, FIO2 40% ABG pH 7.416 pH Units (7.350-7.450) 05/17/22 15:10 ABG pCO2 38.4 mm Hg 05/17/22 15:10 ABG pO2 191.6 mm Hg (80.0-90.0) H 05/17/22 15:10 ABG O2 Saturation 99.2 % (95.0-99.0) H 05/17/22 15:10 decreased FIO2 to 30%. Patient eventually extubated. Patient transfered to [facility]. Patient awake, weak. Following commands. on room air and O2 saturation running 95%. No acute respiratory distress. Patient running low grade temp at times. No leukocytosis. Blood pressure 106/58, pulse 90 , Respirations 13. Chest xray done 05/17/22 reported Layering left-sided effusion with associated opacity and mild right basilar atelectasis remain. No pneumothorax. Lines and tubes in satisfactory position. Patient undergone right thoracentesis 05/26/22. Aspirated 2000 ml of blood tinged fluid. Pleural fluid WBC 1375, RBC 11,000. Pleural fluid protein and LDH results pending. Chest xray Post thoracentesis done 05/26/22 No evidence for pneumothorax after right thoracentesis. Cardiomegaly. Airspace opacity at the right lung base could represent atelectasis or infiltrate. Follow-up is recommended. Patient is on Albuterol inhaler and famotidine. Recommend Nutritional evaluation. I spent critical care time of 35 minutes, reviewing the chart, examine the patient,review labs, chest xray, talking to the nursing staff, respiratory therapy and work up plan of treatment in this critically ill patient. - Patient Problems (1) Acute respiratory failure with hypoxia Current Visit: Yes Status: Acute Plan to address problem: Resting on room air. O2 saturation 95%. Recommend xopenex and atrovent aerosol treatments q 8 hours. S/C Heparin Famotidine. (2) Subdural hematoma Current Visit: Yes Status: Chronic Plan to address problem: Patient undergone decompressive Craniotomy at [facility]. Management as per neurology. (3) Toxic metabolic encephalopathy Current Visit: Yes Status: Acute Plan to address problem: Management as per primary care and neurology. (4) ESRD on dialysis Current Visit: Yes Status: Chronic Plan to address problem: Management as per nephrology. (5) HTN (hypertension) Current Visit: Yes Status: Chronic Qualifiers: Hypertension type: primary hypertension Qualified Code(s): I10 - Essential (primary) hypertension Plan to address problem: Management as per primary care. (6) COPD (chronic obstructive pulmonary disease) Current Visit: Yes Status: Chronic Qualifiers: COPD type: COPD with acute exacerbation Qualified Code(s): J44.1 - Chronic obstructive pulmonary disease with (acute) exacerbation Plan to address problem: On room air. O2 saturation 95%. Recommend xopenex and atrovent aerosol treatments q 8 hours. S/C Heparin Famotidine (7) Pleural effusion Current Visit: Yes Status: Acute Plan to address problem: Patient undergone right thoracentesis 05/26/22. Aspirated 2000 ml of blood tinged fluid. Pleural fluid WBC 1375, RBC 11,000. Pleural fluid protein and LDH results pending. Chest xray Post thoracentesis done 05/26/22 No evidence for pneumothorax after right thoracentesis. Cardiomegaly. Airspace opacity at the right lung base could represent atelectasis or infiltrate. (8) Cardiomyopathy Current Visit: Yes Status: Acute Plan to address problem: Management as per cardiology. (9) Oropharyngeal dysphagia Current Visit: Yes Status: Acute Plan to address problem: Aspiration precautions. (10) Seizures Current Visit: Yes Status: Chronic Plan to address problem: Question of Seizures. Management as per primary care and neurology.. Subjective Date of service: 05/29/22 Principal diagnosis: AHRF; AMS; Left SDH; ESRD on dialysis; COPD; H/O Cocaine abuse Interval history: This 56 year old Male transfered from [facility]. Patient developed severe respiratory distress at [facility] [place]. Patient intubated and placed on mechanical ventilation. Patient transfered to [facility] ICU for further management and placement of central venous acess. Patient was on mechanical ventilation in the past. Patient was weaned from the ventilator and decanulated him. Patient agitated and developed severe respiratory distress, patient intubated and placed on assist control and volume control mechanical ventilation. Patient has history of HTN, Cardiomyopathy, ESRD on dialysis, COPD, History of Cocaine abuse Originally admitted to [facility] on 03/23/22 with altered mental status and CT of head obtained showed large Subdural hemat marlene with left shift.and also had hemoperitoneum.Patient undergone decompressive craniotomy.Patient also undergone paracentesis. Patient intubated and placed on mechanical ventilation subsequently has tracheostomy and PEG placement. Transfered to [facility] at that point. Patient weaned from the ventilator, subsequently decanulated. Patient tolerated decanulation well. Patient is on room air yesterday with 100% O2 saturation. Patient very anxious, May have seizure like activity, patients respiratory status detriorated, patient reintubated and placed on assist control mechanical ventilation. According to the chart, patient has history of smoking and Cocaine use. and has children. No known drug allergies. ABG on mechanical ventilation, AC/VC rate 15, Tidal volume 450, PEEP 6, FIO2 40% ABG pH 7.416 pH Units (7.350-7.450) 05/17/22 15:10 ABG pCO2 38.4 mm Hg 05/17/22 15:10 ABG pO2 191.6 mm Hg (80.0-90.0) H 05/17/22 15:10 ABG O2 Saturation 99.2 % (95.0-99.0) H 05/17/22 15:10 decreased FIO2 to 30%. Patient eventually extubated. Patient transfered to [facility]. Patient awake, weak. Following commands. on room air and O2 saturation running 95%. No acute respiratory distress. Patient running low grade temp at times. No leukocytosis. Blood pressure 106/58, pulse 90 , Respirations 13. Chest xray done 05/17/22 reported Layering left-sided effusion with associated opacity and mild right basilar atelectasis remain. No pneumothorax. Lines and tubes in satisfactory position. Patient undergone right thoracentesis 05/26/22. Aspirated 2000 ml of blood tinged fluid. Pleural fluid WBC 1375, RBC 11,000. Pleural fluid protein and LDH results pending. Chest xray Post thoracentesis done 05/26/22 No evidence for pneumothorax after right thoracentesis. Cardiomegaly. Airspace opacity at the right lung base could represent atelectasis or infiltrate. Follow-up is recommended. Patient is on Albuterol inhaler and famotidine. Recommend Nutritional evaluation. Objective Vital Signs - 12hr 05/29/22 05/29/22 05/29/22 00:00 00:01 01:00 Temperature 97.6 F Pulse Rate 93 H 93 H 104 H Pulse Rate [ 93 H From Monitor] Respiratory 13 13 17 Rate Blood Pressure 107/59 103/58 O2 Sat by Pulse 100 88 99 Oximetry 05/29/22 05/29/22 05/29/22 02:00 03:00 04:00 Temperature Pulse Rate 95 H 103 H 105 H Pulse Rate [ 105 H From Monitor] Respiratory 19 22 22 Rate Blood Pressure 94/54 109/42 O2 Sat by Pulse 95 94 96 Oximetry 05/29/22 05/29/22 05/29/22 04:01 05:00 06:00 Temperature Pulse Rate 104 H Pulse Rate [ From Monitor] Respiratory 22 Rate Blood Pressure 83/47 97/58 104/69 O2 Sat by Pulse 96 99 91 Oximetry 05/29/22 05/29/22 05/29/22 07:00 07:30 07:46 Temperature Pulse Rate 119 H 107 H 115 H Pulse Rate [ From Monitor] Respiratory 18 23 21 Rate Blood Pressure 99/69 104/75 110/71 O2 Sat by Pulse 96 Oximetry 05/29/22 05/29/22 05/29/22 08:00 08:16 08:30 Temperature 99 F Pulse Rate 100 H 129 H 113 H Pulse Rate [ 114 H From Monitor] Respiratory 20 26 H 16 Rate Blood Pressure 111/82 111/82 120/84 O2 Sat by Pulse 97 100 99 Oximetry 05/29/22 05/29/22 05/29/22 08:46 08:54 09:00 Temperature Pulse Rate 105 H 118 H Pulse Rate [ From Monitor] Respiratory 22 23 Rate Blood Pressure 120/84 111/82 O2 Sat by Pulse 97 97 97 Oximetry 05/29/22 05/29/22 05/29/22 09:31 09:38 09:39 Temperature Pulse Rate 103 H 103 H Pulse Rate [ From Monitor] Respiratory Rate Blood Pressure 45/29 125/74 125/74 O2 Sat by Pulse Oximetry 05/29/22 05/29/22 05/29/22 09:46 10:00 10:16 Temperature Pulse Rate 109 H 96 H 95 H Pulse Rate [ From Monitor] Respiratory 18 16 17 Rate Blood Pressure 125/74 113/73 112/69 O2 Sat by Pulse 96 96 97 Oximetry 05/29/22 05/29/22 05/29/22 10:30 10:46 11:00 Temperature Pulse Rate 108 H 126 H 111 H Pulse Rate [ From Monitor] Respiratory 13 14 19 Rate Blood Pressure 126/81 126/81 117/72 O2 Sat by Pulse 96 96 95 Oximetry 05/29/22 05/29/22 11:16 11:58 Temperature 99 F Pulse Rate 106 H Pulse Rate [ From Monitor] Respiratory 18 Rate Blood Pressure 117/72 O2 Sat by Pulse 96 Oximetry Constitutional: no acute distress, alert, other (Patient weak. Resting on room air.) Eyes: non-icteric ENT: oropharynx moist Neck: supple, no JVD Effort: mildly labored Ascultation: Bilateral: diminished breath sounds, rales, rhonchi (scant) Percussion: Right: dull, Bilateral: not dull Cardiovascular: irregular rhythm, other (A-fib) Gastrointestinal: normoactive bowel sounds, soft, non-tender, non-distended (protuberant) Integumentary: normal, other (healed scalp craniotomy incision line) Extremities: no cyanosis, no edema, pink and warm, pulses normal, no ischemia or petechiae Neurologic: non-focal exam (grossly), pupils equal and round Psychiatric: mood appropriate CBC and BMP: 05/27/22 15:37 05/27/22 15:37 ABG, PT/INR, D-dimer: ABG ABG pH 7.494 pH Units (7.350-7.450) H 05/25/22 12:00 ABG pCO2 38.0 mm Hg 05/25/22 12:00 ABG pO2 61.1 mm Hg (80.0-90.0) L 05/25/22 12:00 ABG O2 Saturation 96.8 % (95.0-99.0) 05/25/22 12:00 Abnormal lab findings: Abnormal Labs 05/17/22 05/17/22 05/17/22 14:26 14:28 15:10 WBC 4.0 L RBC 2.86 L Hgb 8.4 L Hct 24.9 L RDW 20.9 H Plt Count Lymph % (Auto) [place] % (Auto) 14.7 H Lymph # (Auto) 0.6 L [place] # (Auto) Seg Neutrophils % ABG pH ABG pO2 191.6 H ABG HCO3 ABG O2 Saturation 99.2 H ABG Base Excess ABG Hemoglobin 9.0 L Oxyhemoglobin Sodium 126 L Potassium 6.0 H Chloride 91.0 L Carbon Dioxide BUN 42 H Creatinine 6.9 H Glucose POC Glucose Calcium Phosphorus Magnesium ALT < 5 L Ammonia Total Protein 6.1 L Albumin 2.9 L Folate TSH Hepatitis C Antibody Crossmatch 05/18/22 05/18/22 05/18/22 04:13 04:20 06:00 WBC 3.0 L RBC 2.87 L Hgb 8.1 L Hct 25.3 L RDW 20.7 H Plt Count 127 L Lymph % (Auto) [place] % (Auto) 15.1 H Lymph # (Auto) 0.5 L [place] # (Auto) Seg Neutrophils % ABG pH ABG pO2 158.7 H ABG HCO3 ABG O2 Saturation ABG Base Excess ABG Hemoglobin 9.4 L Oxyhemoglobin Sodium 128 L Potassium 6.8 H* Chloride 93.7 L Carbon Dioxide BUN 48 H Creatinine 6.8 H Glucose POC Glucose Calcium Phosphorus Magnesium ALT Ammonia Total Protein Albumin Folate TSH Hepatitis C Antibody Crossmatch 05/18/22 05/18/22 05/18/22 17:49 18:10 23:15 WBC RBC Hgb Hct RDW Plt Count Lymph % (Auto) [place] % (Auto) Lymph # (Auto) [place] # (Auto) Seg Neutrophils % ABG pH ABG pO2 ABG HCO3 ABG O2 Saturation ABG Base Excess ABG Hemoglobin Oxyhemoglobin Sodium Potassium Chloride Carbon Dioxide BUN Creatinine Glucose POC Glucose 144 H 145 H Calcium Phosphorus Magnesium ALT Ammonia Total Protein Albumin Folate TSH Hepatitis C Antibody Reactive A Crossmatch 05/19/22 05/19/22 05/19/22 03:18 03:18 05:21 WBC 2.6 L RBC 2.94 L Hgb 8.5 L Hct 26.2 L RDW 20.3 H Plt Count 137 L Lymph % (Auto) [place] % (Auto) Lymph # (Auto) [place] # (Auto) Seg Neutrophils % ABG pH ABG pO2 ABG HCO3 ABG O2 Saturation ABG Base Excess ABG Hemoglobin Oxyhemoglobin Sodium Potassium 5.1 H D Chloride Carbon Dioxide BUN 34 H Creatinine 4.9 H Glucose 130 H POC Glucose 143 H Calcium 8.3 L Phosphorus Magnesium ALT Ammonia Total Protein Albumin Folate TSH Hepatitis C Antibody Crossmatch 05/19/22 05/19/22 05/20/22 11:23 17:48 00:01 WBC RBC Hgb Hct RDW Plt Count Lymph % (Auto) [place] % (Auto) Lymph # (Auto) [place] # (Auto) Seg Neutrophils % ABG pH ABG pO2 ABG HCO3 ABG O2 Saturation ABG Base Excess ABG Hemoglobin Oxyhemoglobin Sodium Potassium Chloride Carbon Dioxide BUN Creatinine Glucose POC Glucose 127 H 156 H 142 H Calcium Phosphorus Magnesium ALT Ammonia Total Protein Albumin Folate TSH Hepatitis C Antibody Crossmatch 05/20/22 05/20/22 05/20/22 04:31 04:31 17:44 WBC RBC 2.72 L Hgb 7.8 L Hct 24.1 L RDW 20.9 H Plt Count Lymph % (Auto) [place] % (Auto) Lymph # (Auto) [place] # (Auto) Seg Neutrophils % ABG pH ABG pO2 ABG HCO3 ABG O2 Saturation ABG Base Excess ABG Hemoglobin Oxyhemoglobin Sodium Potassium 5.4 H Chloride 96.5 L Carbon Dioxide BUN 53 H Creatinine 6.7 H Glucose 115 H POC Glucose 132 H Calcium 8.1 L Phosphorus 7.90 H Magnesium ALT Ammonia Total Protein Albumin Folate TSH Hepatitis C Antibody Crossmatch 05/21/22 05/21/22 05/21/22 04:13 07:50 11:43 WBC RBC Hgb Hct RDW Plt Count Lymph % (Auto) [place] % (Auto) Lymph # (Auto) [place] # (Auto) Seg Neutrophils % ABG pH ABG pO2 ABG HCO3 ABG O2 Saturation ABG Base Excess ABG Hemoglobin Oxyhemoglobin Sodium Potassium Chloride 97.7 L Carbon Dioxide BUN 37 H Creatinine 4.9 H Glucose POC Glucose 111 H 109 H Calcium 8.0 L Phosphorus Magnesium ALT Ammonia Total Protein Albumin Folate TSH Hepatitis C Antibody Crossmatch 05/21/22 05/21/22 05/22/22 17:00 20:52 03:59 WBC RBC 2.31 L Hgb 6.8 L Hct 20.3 L RDW 20.4 H Plt Count 103 L Lymph % (Auto) [place] % (Auto) Lymph # (Auto) [place] # (Auto) Seg Neutrophils % ABG pH ABG pO2 ABG HCO3 ABG O2 Saturation ABG Base Excess ABG Hemoglobin Oxyhemoglobin Sodium Potassium Chloride Carbon Dioxide BUN Creatinine Glucose POC Glucose 116 H 121 H Calcium Phosphorus Magnesium ALT Ammonia Total Protein Albumin Folate TSH Hepatitis C Antibody Crossmatch 05/22/22 05/22/22 05/22/22 03:59 06:00 07:33 WBC RBC Hgb Hct RDW Plt Count Lymph % (Auto) [place] % (Auto) Lymph # (Auto) [place] # (Auto) Seg Neutrophils % ABG pH ABG pO2 ABG HCO3 ABG O2 Saturation ABG Base Excess ABG Hemoglobin Oxyhemoglobin Sodium 134 L Potassium Chloride 94.7 L Carbon Dioxide BUN 44 H Creatinine 5.7 H Glucose POC Glucose 135 H Calcium 7.9 L Phosphorus Magnesium 1.60 L ALT Ammonia Total Protein Albumin Folate TSH Hepatitis C Antibody Crossmatch See Detail 05/22/22 05/22/22 05/22/22 16:55 21:28 22:53 WBC RBC 2.70 L Hgb 7.9 L Hct 24.1 L RDW 20.3 H Plt Count 110 L Lymph % (Auto) [place] % (Auto) Lymph # (Auto) [place] # (Auto) Seg Neutrophils % ABG pH ABG pO2 ABG HCO3 ABG O2 Saturation ABG Base Excess ABG Hemoglobin Oxyhemoglobin Sodium Potassium Chloride Carbon Dioxide BUN Creatinine Glucose POC Glucose 146 H 126 H Calcium Phosphorus Magnesium ALT Ammonia Total Protein Albumin Folate TSH Hepatitis C Antibody Crossmatch 05/22/22 05/22/22 05/23/22 22:53 22:53 04:00 WBC RBC 2.84 L Hgb 8.4 L Hct 25.5 L RDW 20.5 H Plt Count 108 L Lymph % (Auto) [place] % (Auto) Lymph # (Auto) [place] # (Auto) Seg Neutrophils % ABG pH ABG pO2 ABG HCO3 ABG O2 Saturation ABG Base Excess ABG Hemoglobin Oxyhemoglobin Sodium 136 L Potassium Chloride 97.6 L Carbon Dioxide BUN 30 H Creatinine 3.9 H Glucose 132 H POC Glucose Calcium Phosphorus 2.20 L D Magnesium ALT Ammonia Total Protein Albumin Folate [facility] Hepatitis C Antibody Crossmatch 05/23/22 05/24/22 05/24/22 04:17 05:15 08:15 WBC RBC 2.79 L Hgb 8.0 L Hct 24.6 L RDW 20.2 H Plt Count 133 L Lymph % (Auto) 6.0 L [place] % (Auto) 9.7 H Lymph # (Auto) 0.5 L [place] # (Auto) 0.9 H Seg Neutrophils % 82.8 H ABG pH ABG pO2 ABG HCO3 ABG O2 Saturation ABG Base Excess ABG Hemoglobin Oxyhemoglobin Sodium 134 L Potassium 5.8 H D Chloride 96.4 L Carbon Dioxide BUN 32 H 48 H Creatinine 4.1 H 5.4 H Glucose 107 H POC Glucose Calcium Phosphorus 2.30 L Magnesium ALT Ammonia Total Protein Albumin Folate TSH Hepatitis C Antibody Crossmatch 05/24/22 05/25/22 05/25/22 08:15 12:00 12:57 WBC RBC 2.33 L Hgb 7.0 L Hct 22.0 L RDW 20.5 H Plt Count 134 L Lymph % (Auto) 10.8 L [place] % (Auto) 13.1 H Lymph # (Auto) 0.6 L [place] # (Auto) Seg Neutrophils % 74.5 H ABG pH 7.494 H ABG pO2 61.1 L ABG HCO3 28.5 H ABG O2 Saturation ABG Base Excess 4.9 H ABG Hemoglobin 6.8 L Oxyhemoglobin 94.5 L Sodium Potassium Chloride Carbon Dioxide BUN Creatinine Glucose POC Glucose Calcium Phosphorus Magnesium ALT Ammonia 24.0 L Total Protein Albumin Folate [facility] Hepatitis C Antibody Crossmatch 05/25/22 05/26/22 05/26/22 12:57 04:11 04:11 WBC RBC 2.86 L Hgb 8.2 L Hct 25.7 L RDW 19.8 H Plt Count Lymph % (Auto) [place] % (Auto) Lymph # (Auto) [place] # (Auto) Seg Neutrophils % ABG pH ABG pO2 ABG HCO3 ABG O2 Saturation ABG Base Excess ABG Hemoglobin Oxyhemoglobin Sodium 136 L Potassium 5.1 H 5.3 H Chloride 97.0 L 97.8 L Carbon Dioxide BUN 40 H 46 H Creatinine 5.4 H 5.7 H Glucose POC Glucose Calcium Phosphorus Magnesium ALT Ammonia Total Protein Albumin Folate TSH Hepatitis C Antibody Crossmatch 05/27/22 05/27/22 05/27/22 04:33 04:33 15:37 WBC RBC 2.90 L Hgb 8.3 L Hct 25.4 L RDW 19.7 H Plt Count Lymph % (Auto) [place] % (Auto) Lymph # (Auto) [place] # (Auto) Seg Neutrophils % ABG pH ABG pO2 ABG HCO3 ABG O2 Saturation ABG Base Excess ABG Hemoglobin Oxyhemoglobin Sodium Potassium Chloride Carbon Dioxide BUN Creatinine Glucose POC Glucose Calcium Phosphorus Magnesium ALT Ammonia Total Protein Albumin Folate 6.08 L TSH 8.200 H Hepatitis C Antibody Crossmatch 05/27/22 05/28/22 15:37 11:38 WBC RBC Hgb Hct RDW Plt Count Lymph % (Auto) [place] % (Auto) Lymph # (Auto) [place] # (Auto) Seg Neutrophils % ABG pH ABG pO2 ABG HCO3 ABG O2 Saturation ABG Base Excess ABG Hemoglobin Oxyhemoglobin Sodium 136 L Potassium Chloride 96.8 L Carbon Dioxide 31 H BUN 29 H Creatinine 4.6 H Glucose 103 H POC Glucose 112 H Calcium Phosphorus Magnesium ALT Ammonia Total Protein Albumin Folate TSH Hepatitis C Antibody Crossmatch Allied health notes reviewed: nursing
[2022-05-29] MEDS: ALPRAZolam 0.5 MG TAB PO PRN (13:08)
--- NOTE | 2022-05-29 14:06 | Progress Note ---
Assessment and Plan - Patient Problems (1) Rapid atrial fibrillation Current Visit: Yes Status: Acute Plan to address problem: Patient has much better atrial fibrillation rate control with the addition of amiodarone. Cardiac status is stable, continue current medical management. Subjective Date of service: 05/29/22 Principal diagnosis: AHRF; AMS; Left SDH; ESRD on dialysis; COPD; H/O Cocaine abuse Interval history: Patient is resting comfortably in bed, no cardiac complaints, no new cardiac events reported. On [employer], there is well-controlled atrial fibrillation in the 90s to low 100s. Objective Vital Signs Temp Pulse Pulse Resp BP Pulse Ox Pulse Ox 05/29/22 13:00 110 H 19 110/78 95 05/29/22 12:46 105 H 18 102/66 96 05/29/22 12:30 120 H 16 102/66 90 05/29/22 12:16 142 H 18 117/72 05/29/22 12:00 123 H 127 H 19 117/72 95 05/29/22 11:58 99 F 05/29/22 11:46 116 H 13 129/70 05/29/22 11:30 117 H 18 129/70 95 05/29/22 11:16 106 H 18 117/72 96 05/29/22 11:00 111 H 19 117/72 95 05/29/22 10:46 126 H 14 126/81 96 05/29/22 10:30 108 H 13 126/81 96 05/29/22 10:16 95 H 17 112/69 97 05/29/22 10:00 96 H 16 113/73 96 05/29/22 09:46 109 H 18 125/74 96 05/29/22 09:39 103 H 125/74 05/29/22 09:38 103 H 125/74 05/29/22 09:31 45/29 05/29/22 09:00 118 H 23 111/82 97 05/29/22 08:54 97 05/29/22 08:46 105 H 22 120/84 97 05/29/22 08:30 113 H 16 120/84 99 05/29/22 08:16 129 H 26 H 111/82 100 05/29/22 08:00 99 F 100 H 114 H 20 111/82 97 05/29/22 07:46 115 H 21 110/71 05/29/22 07:30 107 H 23 104/75 05/29/22 07:00 119 H 18 99/69 96 05/29/22 06:00 104/69 91 05/29/22 05:00 104 H 22 97/58 99 05/29/22 04:01 83/47 96 05/29/22 04:00 105 H 105 H 22 96 05/29/22 03:00 103 H 22 109/42 94 05/29/22 02:00 95 H 19 94/54 95 05/29/22 01:00 104 H 17 103/58 99 05/29/22 00:01 93 H 13 107/59 88 05/29/22 00:00 97.6 F 93 H 93 H 13 100 05/28/22 23:01 107/59 96 05/28/22 23:00 107/59 96 05/28/22 22:00 99 H 18 103/53 100 05/28/22 21:17 83 93/58 05/28/22 21:00 91 H 15 97/72 98 05/28/22 20:45 83 93/58 05/28/22 20:00 98.3 F 89 83 16 93/58 99 100 05/28/22 19:48 99 05/28/22 19:39 92 H 82/61 05/28/22 19:30 74 91/58 05/28/22 19:15 89 99/65 05/28/22 19:00 93 H 17 90/57 99 05/28/22 18:50 95 H 96/69 05/28/22 18:45 94 H 66/38 05/28/22 18:30 82 92/58 05/28/22 18:15 88 87/40 05/28/22 18:00 98 H 21 99/67 98 05/28/22 17:45 77 90/52 05/28/22 17:30 60 87/48 05/28/22 17:15 96 H 84/58 05/28/22 17:01 106 H 20 95/57 100 05/28/22 17:00 86 95/57 05/28/22 16:45 86 95/62 05/28/22 16:30 54 L 91/71 05/28/22 16:15 83 110/66 05/28/22 16:09 90 115/99 05/28/22 16:01 116 H 22 84/57 99 05/28/22 16:00 98.1 F 111 H 111 H 21 99 05/28/22 15:40 98.1 F 108 H 18 92/67 99 05/28/22 15:00 106 H 16 99/64 96 - Physical Examination General: No Apparent Distress HEENT: Positive: PERRL Neck: Positive: neck supple Cardiac: Positive: irregularly irregular Lungs: Positive: Decreased Breath Sounds Neuro: Positive: Weakness (Generalized lethargy) Abdomen: Positive: Soft Skin: Positive: Clear Extremities: Absent: edema - Allied health notes Allied health notes reviewed: nursing
[2022-05-29] MEDS: SENNOSIDES/DOCUSATE SODIUM 8.6/50 MG TAB PO SCH (22:49)
[2022-05-30] MEDS: oxyCODONE /ACETAMINOPHEN 5-325MG TAB PO PRN ×2 (02:00→07:59)
[2022-05-30] MEDS: ALPRAZolam 0.5 MG TAB PO PRN (07:59)
[2022-05-30] MEDS: dilTIAZem 60 MG TAB PO SCH (07:59)
--- NOTE | 2022-05-30 09:11 | Discharge Summary ---
Providers - Providers Date of Admission: 05/17/22 14:42 Date of discharge: 05/30/22 Attending physician: RAMONA ARROYO MD 05/17/22 14:26 Consult to Physician [CONS] Routine Comment: dr. Simpson/ tiara Consulting Provider: NELSY YOU Physician Instructions: Reason For Exam: Acute respiratory failure with hypoxia 05/18/22 05:59 Consult to Physician [CONS] Routine Comment: Consulting Provider: SANDY WINN Physician Instructions: Reason For Exam: esrd 05/18/22 07:52 Consult to Dietitian/Nutrition [CONS] Routine Physician Instructions: Reason For Exam: Reason for Consult: Write/Manage Tube Feeding 05/19/22 08:21 Midline [Consult to PICC Line RN] [CONS] Routine Reason For Exam: Need IV Access Type Line:: Midline 05/19/22 08:48 Speech Therapy Evaluation and Treat [CONS] Routine Reason For Exam: dysphagia screen 05/19/22 18:41 Consult to Physician [CONS] Routine Comment: Consulting Provider: DILAN JIMENEZ Physician Instructions: Reason For Exam: Atrial Fibrilation with RVR 05/19/22 18:42 Occupational Therapy Evaluate and Treat [CONS] Routine Comment: Reason For Exam: s/p Fall Physical Therapy Evaluation and Treat [CONS] Routine Comment: Reason For Exam: s/p Fall 05/19/22 18:44 Consult to Physician [CONS] Routine Comment: chary menjivar Consulting Provider: HERNAN BARNES Physician Instructions: Reason For Exam: Pubic Ramus and Left Elbow fractures 05/20/22 08:06 Speech Therapy Evaluation and Treat [CONS] Routine Reason For Exam: History of dysphagia 05/21/22 07:51 Consult to Mental Health [CONS] Routine Reason For Exam: Periods of psychosis, eval and treat 05/24/22 09:46 Consult to Physician [CONS] Routine Comment: Consulting Provider: ROSITA MCMAHAN Physician Instructions: Reason For Exam: AMS 05/25/22 16:19 Consult to Dietitian/Nutrition [CONS] Routine Physician Instructions: Reason For Exam: Reason for Consult: Write/Manage Tube Feeding 05/26/22 10:59 Speech Therapy Evaluation and Treat [CONS] Routine Reason For Exam: re-assess swallow Primary care physician: GEOSPATIAL TECHNICIAN Hospitalization Reason for admission: shortness of breath Hospital course: Assessment and plan: This is a 56-year-old male with HTN, cardiomyopathy, ESRD on HD, COPD, former cocaine abuser, SDH with left shift and hemoperitoneum s/p decompressive craniotomy and paracentesis, acute hypoxic respiratory failure s/p tracheostomy with eventual decannulation who was admitted with acute hypoxic respiratory failure requiring ventilatory support. Hospital course to date: 05/18: Patient is following commands remains sedated on Precedex. Patient will receive hemodialysis today. Likely will CPAP tomorrow. NG tube placed and started on tube feedings. 05/19: S/p extubation, stable on RA. Patient is s/p fall today, now c/o of Left elbow and pelvic pain. Orders placed for Lt. elbow X-ray and CT head/lumbar spine/pelvic. PRN analgesia orderd for pain control. Patient remains in Afib with RVR HR in the 120-130s, currently on PO amio. Patient's home meds list is available will resume home medications for rate control. Possible Cardiology consult if Afib RVR persists. Will keep patient in the ICU for another 24hrs post extubation, possible transfer to the floor tomorrow if patient remains stable. 05/20: Increase anxiety and agitation overnight, back on low dose precedex gtt. Lt. elbow X-ray and CT scans reviewed, fractures enthesophytes, superior and inferior pubic rami with soft tissue hematoma reported. H&H is stable, no s/s of any active bleeding. Ortho consulted for further eval and treat. Continue to trend CBC and PRN analgesia for pain control. Patient remains in Afib with RVR, on BB, BP stable. Given patient's current Afib with RVR, will continue VTE proph for now, awaiting Cardio and Ortho recommendations. Cardiology also consulted. Patient's home seroquel and antianxiety regime resumed. Wean off precedex gtt for RASS goal of 0 to -1. Plan for HD today per Nephro. PT/OT ordered. 05/21: Remains on precedex gtt due to increase agitation and combativeness ove rnight, symptoms resolved this am. Patient's family reported multiple psych issues since childhood. Seroquel adjusted and Mental health/psych consulted. Patient remains in Afib but in rate control this am. Cardiology recommendations appreciated, 2D echo pending. Attending also discussed with Ortho, with no indication of any surgery at this time. Ortho recommends PT/OT and weight bearing as tolerated. Full consult pending. JESSICA alston ordered. PRN analgesia for pain control. 05/22: Remains on precedex, more calm and appropriate this am. Remains on 2L NC, hypoxia noted overnight on RA, recent CXR noted with increase CHF/pulmonary edema. Patient remains in Afib but in control rate. 2D echo and cardiology recommendations noted. Patient with low BP this am, BB reduced to 50mg BID and antihypertensive therapy held today. H&H also dropped this am and worsen thrombocytopenia this am, no s/s of any active bleeding. Will hold AC for now, 1unit of PRBCs rdered and iHD today per Nephro. Patient has been refusing PT and OOB activity, still c/o of buttocks and hip pain. Continue to encourage OOB and physical therapy. PRN analgesia for pain control. Monitor and replace electrolytes as needed. 05/23: Mentation remains labile. Awake but still with periods of confusion and agitation. Off precedex gtt this am. Patient tolerated HD yesterday 3L removed, stable on 2L NC. In Afib with RVR, HR in 140s this am. D/w Cardio plan to adjust regimen therapy for rate control. Okay to transfer patient to IMCU per [facility]. 05/24: Patient seen and examined, Cardiology evaluated the patient yesterday made some adjustment to BP management. Patient remains confused with AMS and cxr obtained this morning due to worsening Hypoxia shows increased opacities to the Right lung. Sent to the Pulmonary doctor for review. Will keep NPO for now and may need dobhuff if prolonged AMS. Patient underwent speech eval prior and passed 05/19. Considering the waxing and waning mentation, will consider obtaining MRI Brain when stable and also obtain Neurology consult. Continue IMCU care, may need to move back to ICU if no improvement. Discussed with [place] and [place]. HD ordered for today 05/25: Awake, still confused with periods of agitation. MRI and Neurology consult pending. Patient remains in Afib RVR this am with low BP. S/p iHD yesterday 2L removed. still on NRB SPO2 above 95%. Hold all BB, cardizem, and all antihyper tensive today. X1 of IV albumin and 500cc IVF bolus today, and midodrine was initiated. Patient is also hyperkalemic this am, plan for iHD again today. Thoracentesis pending for moderate pleural effusion. 05/26: Awake but still confused as reported on prior encounters. Remains in Afib RVR rate in 140-150's....amiodorone added by cardiology. Midodrine stopped as patient blood pressure was elevated today in 130's systolic. S/p thoracentesis, will need to wean off nrb as sats tolerate. 05/27; Awake, follows more commands today. Less aggitated, responding well to xanax. Thoracentesis completed yesterday, approx 2L removed yesterday. CT brain ordered yesterday evening negative for acute findings. MR brain still pending, d/w RN to see if patient could get study completed today. HR remains elevated, max rate 140 this AM. Continue rate/rhythm control with dilt/metoprolol/amiodorone. Spoke with and updated about plan for today. 05/28: HR well controlled on amio. MR brain negative for acute findings. Placement currently of concern. Will work with CM for safe discharge. 05/29: pending placement to IRU vs SNF. D/w CM who states patient is being eval by [facility]. 05/30: Discharge after dialysis. Transportation set up for 2pm today for patient to go to [facility] rehab. Discharge medications: diltiazem, amiodorone, losartan, aspirin, metoprolol, quetiapine Assessment and Plan Neuro: Acute Metabolic Encephalopathy-improved h/o SDH with left shift s/p decompressive craniotomy, h/o cocaine abuse/Spych issues S/p Fall -S/p extubation, off sedations -AAO, but with periods of disorientation, very impulsive -Remains on precedex overnight due to increase anxiety/agitation/combativeness -Patient's family reported multiple psych issues since childhood -seroquel adjusted, continue PRN xanax -Wean precededx gtt for RASS goal 0 to -1 -Mental Health/psych consulted -Reorientation as needed -Maintain sleep-wake cycle -As needed analgesia -Fall precaution -PT/OT consulted Cardiac: Atrial Fibrilation with RVR, Systolic HFrEF, Moderate Pulmonary HTN h/o cardiomyopathy, HTN -Patient remains in Afib, but in rate control this am. VSS -Cardiology consulted, appreciate recommendations -2D echo reviewed, LVEF 40-45%, moderate pulmonary HTN- RSVP 45-50 -Low BP today, all antihypertensive and antiarrhytmic therapy held -X1 dose of IV albumin and 500 cc NS, midodrine added -Blood pressure monitoring per protocol -Maintain SBP less than 160 -AC held due to anemia and thrombocytopenia Respiratory: Acute hypoxic respiratory failure, s/p tracheostomy with eventual decannulation, COPD, Moderate Right Pleural Effusion -CCM consulted, appreciate recommendations -Intubated on 05/17 at OSH; 05/19 s/p extubation -Now on NRB -Recent CXR reviewed, with moderate right pleural effusuion -Thoracentesis pending -Continue iHD per Nephro, 2L removed yesterday -Continue O2 supplementation and wean as tolerated -SPO2 monitoring for SPO2 goal aboev 92% -Of note patient self decannulated on 05/05 Superior and Inferior Pubic Rami fractures Left Enthesophytes Fracture S/p Fall -Noted from Lt. Elbow X-ray and CT scan, see report for details -Ortho consulted, appreciate recommendations -Attending also discussed with Ortho, with no indication of any surgery at this time. -Ortho recommends PT/OT and weight bearing as tolerated. -LUE sling ordered. -PT/OT consulted -Patient has been refusing PT and OOB activity -Fall precaution -Continue to encourage OOB and physical therapy -PRN Analgesia for pain control GI: Moderate protein calorie malnutrition -S/p PEG tube placement, however now off -Patient removed Richter catheter that was in the PEG-tube stoma, dressing present -Patient passed bedside swallow, renal diet ordered -Speech also following -S/p paracentesis at [facility] on 05/06 with removal of 2.7 L : ESRD on HD, hyperkalemia -Nephrology consulted, appreciate recommendations -Continue HD per Nephro -Monitor intake and output -Renally dose medications -Avoid nephrotoxic medications -Monitor and replace electrolytes as needed -Trend BMP Heme: Anemia of Chronic Disease, Thrombocytopenia -Probably chronic 2/2 of ESRD -s/p 1unit of PRBCs -H&H stable and plt improved -No s/s of any active bleeding -Continue Epogen with iHD per Nephro -AC held due to anemia and thrombocytopenia -Transfuse for hgb less than 7 ID: Sepsis (POA) -Leukopenia, CXR showed left-sided effusion with associated opacity and mild right basilar atelectasis -COVID-19 PCR negative, MRSA PCR negative -s/p Antibiotic therapy with cefepime -f/u blood culture -Monitor WBC and temperature curve GI/DVT Prophylaxis -PPI- pepcid -SCDs to bilateral lower extremities while in bed Disposition: 03 [facility] Final Discharge Diagnosis (Prints w/discharge instructions): Acute hypoxic respiratory failure, atrial fibrillation with rapid ventricular response, ESRD on HD, acute metabolic encephalopathy Time spent for discharge: 35 Core Measure Documentation - Palliative Care Palliative Care/ Comfort Measures: Not Applicable - Core Measures Any of the following diagnoses?: none Exam - Physical Exam Narrative exam: - Physical exam Narrative exam: General appearance: Present: no acute distress, cachectic - EENT Eyes: Present: PERRL ENT: hearing intact - Neck Neck: Present: normal ROM - Respiratory Respiratory effort: normal Respiratory: bilateral: diminished - Cardiovascular Rhythm: irregularly irregular, rate controlled afib, 90-100 Heart Sounds: Present: S1 & S2 - Extremities Extremities: no ischemia, pulses intact, pulses symmetrical Peripheral Pulses: within normal limits - Abdominal General gastrointestinal: soft, non-distended, normal bowel sounds - Integumentary Integumentary: Present: warm, dry - Psychiatric Psychiatric: other (Confused, Impulsive at time) - Neurologic Neurologic: moves all extremities, other (Awake but confused, with periods of agitation) - Allied Health Allied health notes reviewed: nursing, case management - Constitutional Vitals: Temp Pulse Resp BP Pulse Ox 97.4 F L 95 H 16 125/77 98 05/30/22 08:00 05/30/22 08:00 05/30/22 08:00 05/30/22 08:00 05/30/22 08:00 Plan Follow up with: PRIMARY MD BRANDEN [Primary Care Provider] - 7 Days
[2022-05-30] MEDS: METOPROLOL TARTRATE 100 MG TAB PO SCH (10:15)
[2022-05-30] MEDS: AMIODARONE 200 MG TAB PO SCH (10:15)
[2022-05-30] MEDS: DOCUSATE SODIUM 100 MG CAP PO SCH (10:15)
[2022-05-30] MEDS: FAMOTIDINE 20 MG TAB PO SCH (10:15)
[2022-05-30] MEDS: QUEtiapine 100 MG TAB PO SCH (10:15)
[2022-05-30] MEDS: LOSARTAN 50 MG TAB PO SCH (10:15)
[2022-05-30] MEDS: ASPIRIN EC 81 MG TAB PO SCH (10:15)
--- NOTE | 2022-05-30 10:24 | Progress Note ---
Assessment and Plan - Patient Problems (1) Hypertensive chronic kidney disease with stage 5 chronic kidney disease or end stage renal disease Current Visit: Yes Status: Acute Plan to address problem: Follow-up blood pressure on current medications (2) Pleural effusion, right Current Visit: Yes Status: Acute Plan to address problem: Status post thoracentesis with 2 L fluid drained (3) Chronic systolic heart failure Current Visit: Yes Status: Acute Plan to address problem: Continue with fluid removal on dialysis. Continue beta-carissa and angiotensin receptor carissa (4) Acute respiratory failure with hypoxia Current Visit: Yes Status: Acute Plan to address problem: Improved postthoracentesis. Continue management by pulmonary. (5) Anemia in CKD (chronic kidney disease) Current Visit: Yes Status: Acute Plan to address problem: Given erythropoietin on dialysis (6) Hyperkalemia Current Visit: Yes Status: Acute Plan to address problem: Hemodialysis on a low potassium bath and follow-up potassium (7) ESRD on dialysis Current Visit: Yes Status: Chronic Plan to address problem: Continue hemodialysis on a Wednesday, and Wednesday schedule. Patient was meant to be dialyzed today and then [facility]. There is no nurse available for dialysis today. Will check BMP and potassium is normal, patient can be discharged and receive dialysis on Wednesday at the rehab center. I discussed with the RN who will draw potassium stat. Subjective Date of service: 05/30/22 Principal diagnosis: AHRF; AMS; Left SDH; ESRD on dialysis; COPD; H/O Cocaine abuse Interval history: Patient seen lying in bed. "Awful". Unable to tell me anything in particular that is bothering him today. No pain, nausea vomiting Objective - Exam Narrative Exam: Nonrebreather mask Middle-aged male lying in bed in no acute distress HEENT: NCAT, pink conjunctiva, anicteric sclera Neck: Supple, no venous distention CVS: S1S2 RRR with no murmur, rub or gallop Chest: Coarse breath sounds diminished breath sounds right lower zone, improved Abdomen: Protuberant, soft, ostomy left lower quadrant, nontender, no organomegaly, bowel sounds are present Extremities: No edema, muscle wasting Genitourinary deferred Skin warm and dry Neuro: Awake, alert no focal deficits - Vital Signs Vital signs: Vital Signs - 12hr 05/29/22 05/29/22 05/29/22 22:56 23:00 23:03 Temperature Pulse Rate 71 74 71 Pulse Rate [ From Monitor] Respiratory 10 L 11 L 16 Rate Blood Pressure 94/73 104/63 104/63 O2 Sat by Pulse 97 94 95 Oximetry 05/30/22 05/30/22 05/30/22 00:00 01:00 02:00 Temperature 97.2 F L Pulse Rate 67 71 Pulse Rate [ 77 From Monitor] Respiratory 14 22 18 Rate Blood Pressure 106/76 98/63 O2 Sat by Pulse 91 96 Oximetry 05/30/22 05/30/22 05/30/22 02:01 03:00 04:00 Temperature Pulse Rate 73 74 88 Pulse Rate [ 88 From Monitor] Respiratory 19 16 16 Rate Blood Pressure 95/57 114/67 112/84 O2 Sat by Pulse 96 97 98 Oximetry 05/30/22 05/30/22 05/30/22 05:00 06:00 07:00 Temperature Pulse Rate 84 87 87 Pulse Rate [ From Monitor] Respiratory 22 15 13 Rate Blood Pressure 115/86 120/89 116/78 O2 Sat by Pulse 96 93 98 Oximetry 05/30/22 05/30/22 08:00 09:00 Temperature 97.4 F L Pulse Rate 95 H 105 H Pulse Rate [ 95 H From Monitor] Respiratory 15 13 Rate Blood Pressure 125/77 125/82 O2 Sat by Pulse 82 L Oximetry - Lab 05/27/22 15:37 05/27/22 15:37 Most recent lab results ABG pH 7.494 pH Units (7.350-7.450) H 05/25/22 12:00 ABG pCO2 38.0 mm Hg 05/25/22 12:00 ABG pO2 61.1 mm Hg (80.0-90.0) L 05/25/22 12:00 ABG HCO3 28.5 mmol/L (20.0-26.0) H 05/25/22 12:00 ABG O2 Saturation 96.8 % (95.0-99.0) 05/25/22 12:00 Calcium 8.9 mg/dL (8.4-10.2) 05/27/22 15:37 Phosphorus 3.90 mg/dL (2.5-4.5) D 05/24/22 05:15 Magnesium 2.20 mg/dL (1.7-2.3) 05/24/22 05:15 Medications & Allergies - Medications Allergies/Adverse Reactions: Allergies No Known Allergies Allergy (Unverified 05/17/22 15:36) Home Medications: Home Medications Medication Instructions Recorded Confirmed Last Taken Type ALPRAZolam 0.5 mg PO BID 05/19/22 05/19/22 Unknown History Clopidogrel [Plavix] 75 mg PO QDAY 05/19/22 05/19/22 Unknown History Losartan [Cozaar] 100 mg PO QDAY 05/19/22 05/19/22 Unknown History Metoprolol [Lopressor TAB] 100 mg PO BID 05/19/22 05/19/22 Unknown History NIFEdipine [Nifedipine ER] 60 mg PO BID 05/19/22 05/19/22 Unknown History Oxycodone HCl/Acetaminophen 1 each PO Q8H PRN 05/19/22 05/19/22 Unknown History [Oxycodone-Acetaminophen 10-325] QUEtiapine [SEROquel] 50 mg PO BID 05/19/22 05/19/22 Unknown History Trelegy Ellipta 100-62.5-25 100 mcg INHALATION DAILY 05/19/22 05/19/22 Unknown History dilTIAZem [CarDIZEM] 180 mg PO BID 05/19/22 05/19/22 Unknown History Amiodarone [Cordarone 200 MG TAB] 200 mg PO BID 30 Days #60 tablet 05/30/22 Unknown Rx Aspirin EC [Halfprin EC] 81 mg PO QDAY 30 Days #30 tablet 05/30/22 Unknown Rx Losartan [Cozaar] 50 mg PO QDAY 30 Days #30 tablet 05/30/22 Unknown Rx Metoprolol [Lopressor TAB] 100 mg PO BID 30 Days #60 tablet 05/30/22 Unknown Rx QUEtiapine [SEROquel] 150 mg PO QDAY 30 Days #30 tablet 05/30/22 Unknown Rx dilTIAZem [Cardizem] 60 mg PO TID 30 Days #90 tablet 05/30/22 Unknown Rx Active Medications: Generic Name Dose Route Start Last Admin Trade Name Freq PRN Reason Stop Dose Admin Acetaminophen 650 mg 05/17/22 14:26 05/24/22 01:13 Acetaminophen 325 Mg Tab PO 650 mg Q4H PRN Administration Pain MILD(1-3)/Fever >100.5/DYER Albumin Human 25 gm 05/18/22 09:10 05/22/22 14:54 Albumin Human 25% (25 Gm/100 Ml) Inj IV 25 gm TOM PRN Administration Hypotension Albuterol 2.5 mg 05/18/22 06:02 Albuterol 2.5 Mg/3 Ml Nebu IH Q3HRT PRN Wheezing Alprazolam 0.5 mg 05/23/22 12:50 05/30/22 07:59 Alprazolam 0.5 Mg Tab PO 0.5 mg Q8HR PRN Administration Anxiety/agitation Amiodarone HCl 200 mg 05/26/22 14:00 05/30/22 10:15 Amiodarone 200 Mg Tab PO 200 mg BID DQAUAN Administration Lipase/Protease/Amylase 1 each 05/26/22 11:06 Lipase 10,500/Protease 25,000/Amylase 43,750 (Units) Dr Martinez FEEDTUBE PRN PRN For Clogged Feeding Tube Aspirin 81 mg 05/21/22 10:00 05/30/22 10:15 Aspirin Ec 81 Mg Tab PO 81 mg QDAY DAQUAN Administration Dextrose 50 ml 05/18/22 15:00 Dextrose 50% In Water (25gm) 50 Ml Syringe IV Q30MIN PRN Hypoglycemia Protocol Diltiazem HCl 60 mg 05/25/22 14:00 05/30/22 07:59 Diltiazem 60 Mg Tab PO 60 mg TID DAQUAN Administration Diphenhydramine HCl 25 mg 05/20/22 13:30 05/24/22 23:31 Diphenhydramine 25 Mg Cap PO 25 mg Q6H PRN Administration Itching Docusate Sodium 100 mg 05/22/22 10:00 05/30/22 10:15 Docusate Sodium 100 Mg Cap PO 100 mg BID DAQUAN Administration Epoetin Jacinto-epbx 10,000 unit 05/18/22 09:10 05/28/22 19:30 Epoetin Jacinto-Epbx 10,000 Unit/1 Ml Vial IV 10,000 unit TOM PRN Administration hemodialysis Famotidine 20 mg 05/20/22 10:00 05/30/22 10:15 Famotidine 20 Mg Tab PO 20 mg QDAY DAQUAN Administration Sodium Chloride 100 mls @ 999 mls/hr 05/24/22 08:11 Nacl 0.9% IV TOM PRN Hypotension Losartan Potassium 50 mg 05/26/22 10:00 05/30/22 10:15 Losartan 50 Mg Tab PO 50 mg QDAY DAQUAN Administration Metoprolol Tartrate 100 mg 05/25/22 22:00 05/30/22 10:15 Metoprolol Tartrate 100 Mg Tab PO 100 mg BID DAQUAN Administration Ondansetron HCl 4 mg 05/24/22 17:30 Ondansetron 4 Mg/2 Ml Inj IV Q8H PRN Nausea And Vomiting Oxycodone/Acetaminophen 1 tab 05/21/22 11:00 05/30/22 07:59 Oxycodone /Acetaminophen 5-325mg Tab PO 1 tab Q6H PRN Administration Pain, Moderate (4-6) Quetiapine Fumarate 150 mg 05/24/22 18:00 05/30/22 10:15 Quetiapine 100 Mg Tab PO 150 mg QDAY DAQUAN Administration Quetiapine Fumarate 200 mg 05/24/22 17:30 05/29/22 22:50 Quetiapine 100 Mg Tab PO 200 mg QHS DAQUAN Administration Senna/Docusate Sodium 1 tab 05/22/22 22:00 05/29/22 22:49 Sennosides/Docusate Sodium 8.6/50 Mg Tab PO 1 tab QHS DAQUAN Administration Simple Syrup 15 ml 05/26/22 11:06 Simple Syrup 15 Ml FEEDTUBE PRN PRN Hypoglycemia Simple Syrup 30 ml 05/26/22 11:06 Simple Syrup 15 Ml FEEDTUBE PRN PRN Hypoglycemia Sodium Bicarbonate 325 mg 05/26/22 11:06 Sodium Bicarbonate 325 Mg Tab FEEDTUBE PRN PRN For Clogged Feeding Tube Sodium Chloride 10 ml 05/17/22 22:00 05/30/22 10:16 Sodium Chloride 0.9% 10 Ml Flush Syringe IV 10 ml BID DAQUAN Administration Sodium Chloride 10 ml 05/17/22 14:26 Sodium Chloride 0.9% 10 Ml Flush Syringe IV PRN PRN LINE FLUSH
--- NOTE | 2022-05-30 12:15 | Progress Note ---
Assessment and Plan Acute hypoxemic respiratory failure s/p mechanical ventilatory support Acute toxic metabolic encephalopathy Left subdural hematoma s/p evacuation End-stage renal disease on dialysis Hypertension COPD CMOP H/O Cocaine abuse Oropharyngeal dysphagia -Titrate supplemental oxygen keep SpO2 89-92% -CXR,ABG as indicated -continue bronchodilators with pulmonary hygiene per RT -continue to wean per pulmonary driven protocols -continue HD/UF per nephrology prescription for toxin and volume clearance -prn analgesia per pain score - follow clinically re: fever curves / trend WBC - Avoid delirium (no benzodiazepines if they can be avoided) - Maintain sleep-wake cycle - accuchecks with glycemic control per SSI for target blood glucose goal of < 180 mg/dL; Avoid hypoglycemia - VTE prophylaxis with Heparin - stress ulcer prophylaxis with Pantoprazole - fall precautions - Supportive transfusions to keep Hb>7g/dL - continue to monitor neurologic function - continue chronic home medications as indicated - continue all supportive care -Home anti-anxiety medications Discharge planning Subjective Date of service: 05/30/22 Principal diagnosis: AHRF; AMS; Left SDH; ESRD on dialysis; COPD; H/O Cocaine abuse Interval history: Patient is being seen today for Acute hypoxemic respiratory failure; AMS; Left SDH; ESRD on dialysis; COPD; H/O Cocaine abuse Seen and examined at bedside; 24hr events reviewed; nursing and respiratory care staff consulted; no adverse overnight events reported to me; resting peacefully in bed; no fevers, no chills, no vomiting. Objective Vital Signs - 12hr 05/30/22 05/30/22 05/30/22 01:00 02:00 02:01 Temperature Pulse Rate 71 73 Pulse Rate [ From Monitor] Respiratory 22 18 19 Rate Blood Pressure 98/63 95/57 O2 Sat by Pulse 96 96 Oximetry 05/30/22 05/30/22 05/30/22 03:00 04:00 05:00 Temperature Pulse Rate 74 88 84 Pulse Rate [ 88 From Monitor] Respiratory 16 16 22 Rate Blood Pressure 114/67 112/84 115/86 O2 Sat by Pulse 97 98 96 Oximetry 05/30/22 05/30/22 05/30/22 06:00 07:00 08:00 Temperature 97.4 F L Pulse Rate 87 87 95 H Pulse Rate [ 95 H From Monitor] Respiratory 15 13 15 Rate Blood Pressure 120/89 116/78 125/77 O2 Sat by Pulse 93 98 82 L Oximetry 05/30/22 05/30/22 05/30/22 09:00 10:00 11:00 Temperature Pulse Rate 105 H 78 100 H Pulse Rate [ From Monitor] Respiratory 13 16 15 Rate Blood Pressure 125/82 114/83 125/77 O2 Sat by Pulse 99 97 Oximetry Constitutional: no acute distress, asleep Eyes: non-icteric ENT: oropharynx moist Neck: supple, no JVD Effort: normal Ascultation: Bilateral: diminished breath sounds Cardiovascular: irregular rhythm, other (A-fib) Gastrointestinal: normoactive bowel sounds, soft, non-tender, non-distended (protuberant) Integumentary: normal, other (healed scalp craniotomy incision line) Extremities: no cyanosis, no edema, pink and warm, pulses normal, no ischemia or petechiae Neurologic: non-focal exam (grossly), pupils equal and round Psychiatric: mood appropriate, affect normal CBC and BMP: 05/27/22 15:37 05/30/22 12:00 ABG, PT/INR, D-dimer: ABG ABG pH 7.494 pH Units (7.350-7.450) H 05/25/22 12:00 ABG pCO2 38.0 mm Hg 05/25/22 12:00 ABG pO2 61.1 mm Hg (80.0-90.0) L 05/25/22 12:00 ABG O2 Saturation 96.8 % (95.0-99.0) 05/25/22 12:00 Abnormal lab findings: Abnormal Labs 05/17/22 05/17/22 05/17/22 14:26 14:28 15:10 WBC 4.0 L RBC 2.86 L Hgb 8.4 L Hct 24.9 L RDW 20.9 H Plt Count Lymph % (Auto) Gregg % (Auto) 14.7 H Lymph # (Auto) 0.6 L Gregg # (Auto) Seg Neutrophils % ABG pH ABG pO2 191.6 H ABG HCO3 ABG O2 Saturation 99.2 H ABG Base Excess ABG Hemoglobin 9.0 L Oxyhemoglobin Sodium 126 L Potassium 6.0 H Chloride 91.0 L Carbon Dioxide BUN 42 H Creatinine 6.9 H Glucose POC Glucose Calcium Phosphorus Magnesium ALT < 5 L Ammonia Total Protein 6.1 L Albumin 2.9 L Folate TSH Hepatitis C Antibody Crossmatch 05/18/22 05/18/22 05/18/22 04:13 04:20 06:00 WBC 3.0 L RBC 2.87 L Hgb 8.1 L Hct 25.3 L RDW 20.7 H Plt Count 127 L Lymph % (Auto) Gregg % (Auto) 15.1 H Lymph # (Auto) 0.5 L Gregg # (Auto) Seg Neutrophils % ABG pH ABG pO2 158.7 H ABG HCO3 ABG O2 Saturation ABG Base Excess ABG Hemoglobin 9.4 L Oxyhemoglobin Sodium 128 L Potassium 6.8 H* Chloride 93.7 L Carbon Dioxide BUN 48 H Creatinine 6.8 H Glucose POC Glucose Calcium Phosphorus Magnesium ALT Ammonia Total Protein Albumin Folate TSH Hepatitis C Antibody Crossmatch 05/18/22 05/18/22 05/18/22 17:49 18:10 23:15 WBC RBC Hgb Hct RDW Plt Count Lymph % (Auto) Gregg % (Auto) Lymph # (Auto) Gregg # (Auto) Seg Neutrophils % ABG pH ABG pO2 ABG HCO3 ABG O2 Saturation ABG Base Excess ABG Hemoglobin Oxyhemoglobin Sodium Potassium Chloride Carbon Dioxide BUN Creatinine Glucose POC Glucose 144 H 145 H Calcium Phosphorus Magnesium ALT Ammonia Total Protein Albumin Folate TSH Hepatitis C Antibody Reactive A Crossmatch 05/19/22 05/19/22 05/19/22 03:18 03:18 05:21 WBC 2.6 L RBC 2.94 L Hgb 8.5 L Hct 26.2 L RDW 20.3 H Plt Count 137 L Lymph % (Auto) Gregg % (Auto) Lymph # (Auto) Gregg # (Auto) Seg Neutrophils % ABG pH ABG pO2 ABG HCO3 ABG O2 Saturation ABG Base Excess ABG Hemoglobin Oxyhemoglobin Sodium Potassium 5.1 H D Chloride Carbon Dioxide BUN 34 H Creatinine 4.9 H Glucose 130 H POC Glucose 143 H Calcium 8.3 L Phosphorus Magnesium ALT Ammonia Total Protein Albumin Folate TSH Hepatitis C Antibody Crossmatch 05/19/22 05/19/22 05/20/22 11:23 17:48 00:01 WBC RBC Hgb Hct RDW Plt Count Lymph % (Auto) Gregg % (Auto) Lymph # (Auto) Gregg # (Auto) Seg Neutrophils % ABG pH ABG pO2 ABG HCO3 ABG O2 Saturation ABG Base Excess ABG Hemoglobin Oxyhemoglobin Sodium Potassium Chloride Carbon Dioxide BUN Creatinine Glucose POC Glucose 127 H 156 H 142 H Calcium Phosphorus Magnesium ALT Ammonia Total Protein Albumin Folate TSH Hepatitis C Antibody Crossmatch 05/20/22 05/20/22 05/20/22 04:31 04:31 17:44 WBC RBC 2.72 L Hgb 7.8 L Hct 24.1 L RDW 20.9 H Plt Count Lymph % (Auto) Gregg % (Auto) Lymph # (Auto) Gregg # (Auto) Seg Neutrophils % ABG pH ABG pO2 ABG HCO3 ABG O2 Saturation ABG Base Excess ABG Hemoglobin Oxyhemoglobin Sodium Potassium 5.4 H Chloride 96.5 L Carbon Dioxide BUN 53 H Creatinine 6.7 H Glucose 115 H POC Glucose 132 H Calcium 8.1 L Phosphorus 7.90 H Magnesium ALT Ammonia Total Protein Albumin Folate TSH Hepatitis C Antibody Crossmatch 05/21/22 05/21/22 05/21/22 04:13 07:50 11:43 WBC RBC Hgb Hct RDW Plt Count Lymph % (Auto) Gregg % (Auto) Lymph # (Auto) Gregg # (Auto) Seg Neutrophils % ABG pH ABG pO2 ABG HCO3 ABG O2 Saturation ABG Base Excess ABG Hemoglobin Oxyhemoglobin Sodium Potassium Chloride 97.7 L Carbon Dioxide BUN 37 H Creatinine 4.9 H Glucose POC Glucose 111 H 109 H Calcium 8.0 L Phosphorus Magnesium ALT Ammonia Total Protein Albumin Folate TSH Hepatitis C Antibody Crossmatch 05/21/22 05/21/22 05/22/22 17:00 20:52 03:59 WBC RBC 2.31 L Hgb 6.8 L Hct 20.3 L RDW 20.4 H Plt Count 103 L Lymph % (Auto) Gregg % (Auto) Lymph # (Auto) Gregg # (Auto) Seg Neutrophils % ABG pH ABG pO2 ABG HCO3 ABG O2 Saturation ABG Base Excess ABG Hemoglobin Oxyhemoglobin Sodium Potassium Chloride Carbon Dioxide BUN Creatinine Glucose POC Glucose 116 H 121 H Calcium Phosphorus Magnesium ALT Ammonia Total Protein Albumin Folate TSH Hepatitis C Antibody Crossmatch 05/22/22 05/22/22 05/22/22 03:59 06:00 07:33 WBC RBC Hgb Hct RDW Plt Count Lymph % (Auto) Gregg % (Auto) Lymph # (Auto) Gregg # (Auto) Seg Neutrophils % ABG pH ABG pO2 ABG HCO3 ABG O2 Saturation ABG Base Excess ABG Hemoglobin Oxyhemoglobin Sodium 134 L Potassium Chloride 94.7 L Carbon Dioxide BUN 44 H Creatinine 5.7 H Glucose POC Glucose 135 H Calcium 7.9 L Phosphorus Magnesium 1.60 L ALT Ammonia Total Protein Albumin Folate TSH Hepatitis C Antibody Crossmatch See Detail 05/22/22 05/22/22 05/22/22 16:55 21:28 22:53 WBC RBC 2.70 L Hgb 7.9 L Hct 24.1 L RDW 20.3 H Plt Count 110 L Lymph % (Auto) Gregg % (Auto) Lymph # (Auto) Gregg # (Auto) Seg Neutrophils % ABG pH ABG pO2 ABG HCO3 ABG O2 Saturation ABG Base Excess ABG Hemoglobin Oxyhemoglobin Sodium Potassium Chloride Carbon Dioxide BUN Creatinine Glucose POC Glucose 146 H 126 H Calcium Phosphorus Magnesium ALT Ammonia Total Protein Albumin Folate TSH Hepatitis C Antibody Crossmatch 05/22/22 05/22/22 05/23/22 22:53 22:53 04:00 WBC RBC 2.84 L Hgb 8.4 L Hct 25.5 L RDW 20.5 H Plt Count 108 L Lymph % (Auto) Gregg % (Auto) Lymph # (Auto) Gregg # (Auto) Seg Neutrophils % ABG pH ABG pO2 ABG HCO3 ABG O2 Saturation ABG Base Excess ABG Hemoglobin Oxyhemoglobin Sodium 136 L Potassium Chloride 97.6 L Carbon Dioxide BUN 30 H Creatinine 3.9 H Glucose 132 H POC Glucose Calcium Phosphorus 2.20 L D Magnesium ALT Ammonia Total Protein Albumin Folate TSH Hepatitis C Antibody Crossmatch 05/23/22 05/24/22 05/24/22 04:17 05:15 08:15 WBC RBC 2.79 L Hgb 8.0 L Hct 24.6 L RDW 20.2 H Plt Count 133 L Lymph % (Auto) 6.0 L Gregg % (Auto) 9.7 H Lymph # (Auto) 0.5 L Gregg # (Auto) 0.9 H Seg Neutrophils % 82.8 H ABG pH ABG pO2 ABG HCO3 ABG O2 Saturation ABG Base Excess ABG Hemoglobin Oxyhemoglobin Sodium 134 L Potassium 5.8 H D Chloride 96.4 L Carbon Dioxide BUN 32 H 48 H Creatinine 4.1 H 5.4 H Glucose 107 H POC Glucose Calcium Phosphorus 2.30 L Magnesium ALT Ammonia Total Protein Albumin Folate TSH Hepatitis C Antibody Crossmatch 05/24/22 05/25/22 05/25/22 08:15 12:00 12:57 WBC RBC 2.33 L Hgb 7.0 L Hct 22.0 L RDW 20.5 H Plt Count 134 L Lymph % (Auto) 10.8 L Gregg % (Auto) 13.1 H Lymph # (Auto) 0.6 L Gregg # (Auto) Seg Neutrophils % 74.5 H ABG pH 7.494 H ABG pO2 61.1 L ABG HCO3 28.5 H ABG O2 Saturation ABG Base Excess 4.9 H ABG Hemoglobin 6.8 L Oxyhemoglobin 94.5 L Sodium Potassium Chloride Carbon Dioxide BUN Creatinine Glucose POC Glucose Calcium Phosphorus Magnesium ALT Ammonia 24.0 L Total Protein Albumin Folate TSH Hepatitis C Antibody Crossmatch 05/25/22 05/26/22 05/26/22 12:57 04:11 04:11 WBC RBC 2.86 L Hgb 8.2 L Hct 25.7 L RDW 19.8 H Plt Count Lymph % (Auto) Gregg % (Auto) Lymph # (Auto) Gregg # (Auto) Seg Neutrophils % ABG pH ABG pO2 ABG HCO3 ABG O2 Saturation ABG Base Excess ABG Hemoglobin Oxyhemoglobin Sodium 136 L Potassium 5.1 H 5.3 H Chloride 97.0 L 97.8 L Carbon Dioxide BUN 40 H 46 H Creatinine 5.4 H 5.7 H Glucose POC Glucose Calcium Phosphorus Magnesium ALT Ammonia Total Protein Albumin Folate TSH Hepatitis C Antibody Crossmatch 05/27/22 05/27/22 05/27/22 04:33 04:33 15:37 WBC RBC 2.90 L Hgb 8.3 L Hct 25.4 L RDW 19.7 H Plt Count Lymph % (Auto) Gregg % (Auto) Lymph # (Auto) Gregg # (Auto) Seg Neutrophils % ABG pH ABG pO2 ABG HCO3 ABG O2 Saturation ABG Base Excess ABG Hemoglobin Oxyhemoglobin Sodium Potassium Chloride Carbon Dioxide BUN Creatinine Glucose POC Glucose Calcium Phosphorus Magnesium ALT Ammonia Total Protein Albumin Folate 6.08 L TSH 8.200 H Hepatitis C Antibody Crossmatch 05/27/22 05/28/22 15:37 11:38 WBC RBC Hgb Hct RDW Plt Count Lymph % (Auto) Gregg % (Auto) Lymph # (Auto) Gregg # (Auto) Seg Neutrophils % ABG pH ABG pO2 ABG HCO3 ABG O2 Saturation ABG Base Excess ABG Hemoglobin Oxyhemoglobin Sodium 136 L Potassium Chloride 96.8 L Carbon Dioxide 31 H BUN 29 H Creatinine 4.6 H Glucose 103 H POC Glucose 112 H Calcium Phosphorus Magnesium ALT Ammonia Total Protein Albumin Folate TSH Hepatitis C Antibody Crossmatch Allied health notes reviewed: nursing
[2022-05-30 12:22] LABS: Calcium 8.9 mg/dL (8.4-10.2)
[2022-05-30 13:26] VITALS: BP 118/93
[2022-06-02 12:15] LABS: Vitamin D, 25-OH, D2 SEE SCANNED RESULT
[2022-06-02 15:13] LABS: LDH,Body Fluid 360
== END 2022-05-30 14:04 | DRG 871 ==
LOC: CC1 11:09 → UNDOADMIN 11:09 → CC1 14:42 → IMCU 05-23 14:43
PROVIDERS: ADMIT Internal Medicine; ATTEND Internal Medicine
PROC: 05HY33Z Insertion of Infusion Device into Upper Vein, Percutaneous Approach (ICD-10-PCS; principal; 2022-05-17)
PROC: B543ZZA Ultrasonography of Right Jugular Veins, Guidance (ICD-10-PCS; 2022-05-17)
PROC: 5A1945Z Respiratory Ventilation, 24-96 Consecutive Hours (ICD-10-PCS; 2022-05-17)
PROC: 4A033R1 Measurement of Arterial Saturation, Peripheral, Percutaneous Approach (ICD-10-PCS; 2022-05-18)
PROC: 5A1D70Z Performance of Urinary Filtration, Intermittent, Less than 6 Hours Per Day (ICD-10-PCS; 2022-05-18)
PROC: 5A1D70Z Performance of Urinary Filtration, Intermittent, Less than 6 Hours Per Day (ICD-10-PCS; 2022-05-20)
PROC: 5A1D70Z Performance of Urinary Filtration, Intermittent, Less than 6 Hours Per Day (ICD-10-PCS; 2022-05-22)
PROC: 30233N1 Transfusion of Nonautologous Red Blood Cells into Peripheral Vein, Percutaneous Approach (ICD-10-PCS; 2022-05-22)
PROC: 0W993ZZ Drainage of Right Pleural Cavity, Percutaneous Approach (ICD-10-PCS; 2022-05-24)
PROC: 5A1D70Z Performance of Urinary Filtration, Intermittent, Less than 6 Hours Per Day (ICD-10-PCS; 2022-05-24)
PROC: 5A1D70Z Performance of Urinary Filtration, Intermittent, Less than 6 Hours Per Day (ICD-10-PCS; 2022-05-26)
PROC: 5A1D70Z Performance of Urinary Filtration, Intermittent, Less than 6 Hours Per Day (ICD-10-PCS; 2022-05-28)
DX: A41.9 Sepsis, unspecified organism (principal); G93.41 Metabolic encephalopathy; J96.01 Acute respiratory failure with hypoxia; N18.6 End stage renal disease; J18.9 Pneumonia, unspecified organism; S32.592A Other specified fracture of left pubis, initial encounter for closed fracture; S32.591A Other specified fracture of right pubis, initial encounter for closed fracture; E44.0 Moderate protein-calorie malnutrition; J44.1 Chronic obstructive pulmonary disease with (acute) exacerbation; I48.19 Other persistent atrial fibrillation; I42.9 Cardiomyopathy, unspecified; E87.1 Hypo-osmolality and hyponatremia; J91.8 Pleural effusion in other conditions classified elsewhere; I13.2 Hypertensive heart and chronic kidney disease with heart failure and with stage 5 chronic kidney disease, or end stage renal disease; I50.22 Chronic systolic (congestive) heart failure; Z20.822 Contact with and (suspected) exposure to COVID-19; Z68.20 Body mass index [BMI] 20.0-20.9, adult; D69.6 Thrombocytopenia, unspecified; Z93.0 Tracheostomy status; R56.9 Unspecified convulsions; Z99.2 Dependence on renal dialysis; R13.12 Dysphagia, oropharyngeal phase; E87.5 Hyperkalemia; I48.91 Unspecified atrial fibrillation; W18.39XA Other fall on same level, initial encounter; Y93.89 Activity, other specified; Y92.89 Other specified places as the place of occurrence of the external cause; Y99.8 Other external cause status; D63.1 Anemia in chronic kidney disease; I27.20 Pulmonary hypertension, unspecified
CPT/HCPCS: 32555; 36415; 36600; 70450; 70551; 71045; 72131; 72192; 74018; 80048; 80053; 80074; 82140; 82306; 82607; 82747; 82803; 82962; 83605; 83615; 83735; 84100; 84160; 84425; 84443; 85025; 85027; 86592; 86850; 86900; 86901; 86920; 87040; 87116; 87205; 87641; 88112; 88305; 89051; 93005; 93306; 94002; 94003; 94640; 94760; 95819; G0378; J3490; J7121; C8929; J0282; J0456; J0692; J0696; J0885; J1644; J1885; J2060; J2250; J2270; J2405; J2765; J2930; J3010; J3370; J3475; J7030; J7040; P9016; P9047; U0003